=== PATIENT | male | born 1985 | race Caucasian/White ===

== ENCOUNTER 2017-10-26 12:54 | Emergency (ER) | payer MEDICAID, SELFPAY ==
[2017-10-26 12:54] VITALS: BP 145/94; PULSE 99; RESP 16; TEMP 36.6; O2SAT 99; BMI 26.6
--- NOTE | 2017-10-26 13:03 | ED.VISSUMM ---
- ER Visit Summary Date of Service: 10/26/17 Chief Complaint: Acute right upper back tooth pain History of Present Illness: The patient is a 32 M [address] his [address] Barnett. He was instructed to come to the ER. He denies fever, chills night sweats. He had pain for 1 week. He does complain of sensitivity to cold. He denies difficulty opening or closing his mouth. He denies any facial swelling or redness. He denies a traumatic fever, murmur, SBE, IV drug use to be an immune suppressed. Physical Examination: Pleasant 32-year-old male who appears in no obvious distress. There is no facial erythema, swelling noted. There is no TMJ tenderness and no evidence of malocclusion. Patient has a significant cavity to the pulp right upper back molar. There is evidence of periodontal disease. Trachea is midline. There is no stridor. Insert cardiopulmonary exam Test Results: None Emergency Department Course and Treatment: He received his first dose of clindamycin and [place] in the department and given prescription for both. Treatment Plan: Schedule appointment with Dr. Barnett next week Disposition: Discharge to home with outpatient dental follow-up Impression: 1. Odontalgia 2. Dental carry involving the pulp 3. Periapical abscess This note was generated with [employer] dictation software. It may contain incorrect words, spelling, and punctuation that were not noted in review of the chart prior to signing ED Disposition - Plan for ED Patient: Disposition: Home or Assisted Living Chief Complaint: Dental Instructions: Dental Abscess Prescriptions: Hydrocodone Bitart/Apap 5-325 [[place] 5MG-325MG] 1 tab PO Q4H PRN PRN #10 tab PRN Reason: Pain Clindamycin HCl 300 mg PO 4X/DAY #30 cap Referrals: Care Physician,No Primary [Primary Care Provider] - Additional Instructions: Keep scheduled appointment for next week with your dentist, Dr. Barnett
--- NOTE | 2017-10-26 13:09 | ED.DCSUM_ITS ---
- ER Visit Summary Date of Service: 10/26/17 Chief Complaint: Acute right upper back tooth pain History of Present Illness: The patient is a 32 M contacted his dentist Dr[address] Barnett. He was instructed to come to the ER. He denies fever, chills night sweats. He had pain for 1 week. He does complain of sensitivity to cold. He denies difficulty opening or closing his mouth. He denies any facial swelling or redness. He denies a traumatic fever, murmur, SBE, IV drug use to be an immune suppressed. Physical Examination: Pleasant 32-year-old male who appears in no obvious distress. There is no facial erythema, swelling noted. There is no TMJ tenderness and no evidence of malocclusion. Patient has a significant cavity to the pulp right upper back molar. There is evidence of periodontal disease. Trachea is midline. There is no stridor. Insert cardiopulmonary exam Test Results: None Emergency Department Course and Treatment: He received his first dose of clindamycin and [place] in the department and given prescription for both. Treatment Plan: Schedule appointment with Dr. Barnett next week Disposition: Discharge to home with outpatient dental follow-up Impression: 1. Odontalgia 2. Dental carry involving the pulp 3. Periapical abscess This note was generated with [employer] dictation software. It may contain incorrect words, spelling, and punctuation that were not noted in review of the chart prior to signing ED Disposition - Plan for ED Patient: Disposition: Home or Assisted Living Chief Complaint: Dental Instructions: Dental Abscess Prescriptions: Hydrocodone Bitart/Apap 5-325 [[place] 5MG-325MG] 1 tab PO Q4H PRN PRN #10 tab PRN Reason: Pain Clindamycin HCl 300 mg PO 4X/DAY #30 cap Referrals: Care Physician,No Primary [Primary Care Provider] - Additional Instructions: Keep scheduled appointment for next week with your dentist, Dr. Barnett
[2017-10-26] MEDS: HYDROcodone Bitartrate/Apap 5/325 Tablet PO (13:18)
[2017-10-26] MEDS: Clindamycin HCl 150 MG Capsule 300 MG PO (13:18)
== END 2017-10-26 13:20 | disposition home or self-care (01) ==
PROVIDERS: Emergency Provider Emergency Medicine
DX: K02.9 Dental caries, unspecified (principal); K04.7 Periapical abscess without sinus; K08.89 Other specified disorders of teeth and supporting structures; Z72.0 Tobacco use
CPT/HCPCS: 99283

== ENCOUNTER → 2017-11-02 16:25 | Outpatient (CLI) | payer MEDICAID, SELFPAY ==
--- NOTE | 2017-11-02 16:27 | RAD_ITS ---
STUDY: X-RAY - LEFT KNEE REASON FOR EXAM: Male, 32 years old. Chronic pain TECHNIQUE: 4 view(s) of the knee. COMPARISON: None. FINDINGS: Normal visualized distal femur. Normal visualized proximal tibia and fibula. Normal proximal tibiofibular articulation. Normal medial femorotibial compartment. Normal lateral femorotibial compartment. Normal patellofemoral articulation. The soft tissue structures are unremarkable. RAD/Knee 4 or More Views IMPRESSION: Normal x-ray examination of the knee. Electronically Signed: Jeronimo Jain MD, FACR at 8:02 EST , Service support ,
--- NOTE | 2017-11-02 16:28 | RAD_ITS ---
STUDY: X-RAY - RIGHT KNEE REASON FOR EXAM: Male, 32 years old. Chronic pain TECHNIQUE: 4 view(s) of the knee. COMPARISON: None. FINDINGS: Normal visualized distal femur. Normal visualized proximal tibia and fibula. Normal proximal tibiofibular articulation. Normal medial femorotibial compartment. Normal lateral femorotibial compartment. Normal patellofemoral articulation. The soft tissue structures are unremarkable. RAD/Knee 4 or More Views IMPRESSION: Normal x-ray examination of the knee. Electronically Signed: Jeronimo Jain MD, FACR at 8:03 EST , Service support ,
== END ==
PROVIDERS: Visit Provider Anesthesiology Pain Medicine
DX: M25.562 Pain in left knee (principal); M25.561 Pain in right knee
CPT/HCPCS: 73564

== ENCOUNTER 2017-11-20 19:46 | Emergency (ER) | payer MEDICAID, SELFPAY ==
[2017-11-20 19:47] VITALS: BP 131/92; PULSE 111; RESP 20; TEMP 36.9; BMI 29.0
[2017-11-20 19:54] VITALS: TEMP 36.9
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
[2017-11-20] MEDS: oxyCODONE 5 MG Tablet PO (20:00)
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
[2017-11-20 22:45] VITALS: BP 138/76; PULSE 96; RESP 18; O2SAT 99
== END 2017-11-20 22:46 | disposition home or self-care (01) ==
PROVIDERS: Emergency Provider Emergency Medicine
DX: S80.02XA Contusion of left knee, initial encounter (principal); S40.012A Contusion of left shoulder, initial encounter; S39.012A Strain of muscle, fascia and tendon of lower back, initial encounter; S00.81XA Abrasion of other part of head, initial encounter; Z72.0 Tobacco use; V09.9XXA Pedestrian injured in unspecified transport accident, initial encounter; Y93.01 Activity, walking, marching and hiking; Y92.410 Unspecified street and highway as the place of occurrence of the external cause; Y99.8 Other external cause status
CPT/HCPCS: 72070; 72100; 73564; 99284; A4216

== ENCOUNTER 2017-11-28 21:43 | Emergency (ER) | payer MEDICAID, SELFPAY ==
[2017-11-28 21:44] VITALS: BP 141/95; PULSE 115; RESP 15; TEMP 36.9; BMI 28.8
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
[2017-11-28 22:31] LABS: Absolute Lymphocyte Count 2.46 X10^3/ul (0.83-4.51); Absolute Neutrophil Count 7.8 X10^3/uL (2.0-7.7); Basophil# 0.05 X10^3/uL; Basophil% 0.4 % (0-1); Eosinophil# 0.09 X10^3/uL; Eosinophils% 0.8 % (0-5); Hematocrit 43.4 % (40-54); Hemoglobin 14.9 g/dl (13.0-16.5); Lymphocyte # 2.46 X10^3/ul (4.0); Lymphocyte % 21.8 % (19-41); Mean Corp Hgb Conc 34.3 g/gl (32-36); Mean Corpuscular Hgb 28.9 pg (27.0-32.0); Mean Corpuscular Volume 84.3 fL (80-94); Mean Platelet Vol. 9.6 fl (6.2-12.0); Monocyte# 0.84 X10^3/uL; Monocyte% 7.4 % (0-10); Neutrophil # 7.82 X10^3/uL (2.7-7.7); Neutrophil % 69.2 % (47-70); Platelet Count 355 K/mm3 (150-450); RBC Distribution Width CV 14.7 % (11.6-14.6); RBC Distribution Width SD 44.4 fl (35.1-43.9); Red Blood Count 5.15 M/mm3 (4.6-6.2); White Blood Count 11.3 K/mm3 (4.4-11.0)
[2017-11-28 22:33] LABS: POSITIVE COUNT NO; POSITIVE DIFFERENTIAL NO; POSITIVE MORPHOLOGY NO
[2017-11-28 22:46] LABS: ALB/GLOB Ratio 1.1 RATIO (0.9-2.4); AST(SGOT) 26 U/L (15-37); Alanine Aminotransfer ALT/SGPT 29 U/L (16-61); Albumin, Serum 4.1 g/dL (3.2-5.0); Alkaline Phosphatase 85 U/L (45-117); Anion Gap 10 (5-15); BUN 25 mg/dL (7-18); BUN/Creat Ratio 24.3 RATIO (10-20); Calcium,Total 8.8 mg/dL (8.5-10.1); Chloride 107 mmol/L (98-107); Creatinine, Serum 1.03 mg/dL (0.70-1.30); EST Glomerular Filtration Rate 88 mL/min (>60); Est Glom Filt Rate - Afr Amer 107 mL/min (>60); Estimated Creatinine Clearance 102.01 ml/min; Globulin 3.8 g/dL (2.2-4.2); Glucose 94 mg/dL (74-106); Potassium 3.7 mmol/L (3.5-5.1); Protein, Total 7.9 g/dL (6.4-8.2); Sodium Level 141 mmol/L (136-145)
[2017-11-29 00:20] VITALS: BP 151/92; PULSE 102; RESP 15; O2SAT 98
--- NOTE | 2017-11-29 00:21 | ED.RN ---
PT GIVEN WRITTEN AND VERBAL DISCHARGE INSTRUCTIONS. PT VERBALIZES UNDERSTANDING AND DENIES ANY FURTHER QUESTIONS. PT IV D/C AND COVERED WITH 2X2 GAUZE DRESSING. MINIMAL BLEEDING NOTED. PT AMBULATORY HOME BY SELF. PT GIVEN WATER AND CRACKERS PRIOR TO DISCHARGE.
== END 2017-11-29 00:24 | disposition home or self-care (01) ==
PROVIDERS: Emergency Provider Emergency Medicine
DX: K62.5 Hemorrhage of anus and rectum (principal); R19.7 Diarrhea, unspecified; D72.829 Elevated white blood cell count, unspecified; R79.89 Other specified abnormal findings of blood chemistry; Z72.0 Tobacco use; Z79.1 Long term (current) use of non-steroidal anti-inflammatories (NSAID)
CPT/HCPCS: 80053; 85025; 99283; A4216

== ENCOUNTER 2017-12-02 16:05 | Emergency (ER) | payer MEDICAID, SELFPAY ==
[2017-12-02 16:06] VITALS: BP 134/95; PULSE 107; RESP 16; TEMP 36.8; O2SAT 97; BMI 29.5
[2017-12-02 17:42] VITALS: BP 129/76; PULSE 99; RESP 16; O2SAT 98
[2017-12-02 21:43] VITALS: BP 121/90; PULSE 102; RESP 16; O2SAT 100
[2017-12-02 21:51] LABS: Absolute Lymphocyte Count 2.58 X10^3/ul (0.83-4.51); Basophil# 0.05 X10^3/uL; Basophil% 0.4 % (0-1); Eosinophil# 0.17 X10^3/uL; Eosinophils% 1.3 % (0-5); Hematocrit 42.5 % (40-54); Hemoglobin 14.2 g/dl (13.0-16.5); Lymphocyte # 2.58 X10^3/ul (4.0); Lymphocyte % 20.4 % (19-41); Mean Corp Hgb Conc 33.4 g/gl (32-36); Mean Corpuscular Volume 86.9 fL (80-94); Mean Platelet Vol. 9.7 fl (6.2-12.0); Monocyte# 0.83 X10^3/uL; Monocyte% 6.6 % (0-10); Neutrophil # 8.98 X10^3/uL (2.7-7.7); Neutrophil % 71.1 % (47-70); Platelet Count 332 K/mm3 (150-450); RBC Distribution Width CV 14.5 % (11.6-14.6); RBC Distribution Width SD 46.1 fl (35.1-43.9); Red Blood Count 4.89 M/mm3 (4.6-6.2); White Blood Count 12.6 K/mm3 (4.4-11.0)
[2017-12-02 21:52] LABS: POSITIVE COUNT NO; POSITIVE DIFFERENTIAL NO; POSITIVE MORPHOLOGY NO
[2017-12-02 22:03] LABS: Anion Gap 10 (5-15); BUN 10 mg/dL (7-18); BUN/Creat Ratio 10.9 RATIO (10-20); Calcium,Total 8.9 mg/dL (8.5-10.1); Chloride 103 mmol/L (98-107); Creatinine, Serum 0.92 mg/dL (0.70-1.30); EST Glomerular Filtration Rate 101 mL/min (>60); Est Glom Filt Rate - Afr Amer 122 mL/min (>60); Glucose 93 mg/dL (74-106); Potassium 3.5 mmol/L (3.5-5.1); Sodium Level 138 mmol/L (136-145)
[2017-12-02 22:11] LABS: Amphetamine Urine VISTA POSITIVE (<1000 ng/mL); Barbiturate Urine VISTA NEGATIVE (< 200 ng/mL); Benzodiazepine Urine VISTA NEGATIVE (< 200 ng/mL); Cocaine Urine VISTA NEGATIVE (< 300 ng/mL); Ecstacy Urine VISTA NEGATIVE (< 500 ng/mL); Methadone Urine VISTA NEGATIVE (< 300 ng/mL); PCP Urine VISTA NEGATIVE (< 25 ng/mL); THC Urine VISTA POSITIVE (< 50 ng/mL); Vista UDS pH Range 6
--- NOTE | 2017-12-02 23:46 | ED.RN ---
PT PO 85% ON RA. MD NOTIFIED. WILL OBSERVE PT LONGER
--- NOTE | 2017-12-03 00:24 | ED.RN ---
SHERWIN FROM CRISIS CALLED IN STATING SHE WAS ALMOST DONE AT [facility] AND THEN SHE WILL BE UP TO SEE ROBERT.
--- NOTE | 2017-12-03 00:39 | ED.VISSUMM ---
- ER Visit Summary Date of Service: 12/03/17 Chief Complaint: Paranoid ideation History of Present Illness: The patient is a 32 M who presents with paranoid ideation that has been getting worse over the past couple weeks. Patient states that he feels like he is being followed by someone. Patient states he does not see anyone following him. He just feels as though someone is following him. Patient denies any visual or auditory hallucinations. Patient states he has been noncompliant with his medications over the past couple months. Patient states he is supposed to be taking Celexa and another medication. Patient states he did smoke marijuana recently. Patient states the marijuana was laced with methamphetamine. Patient denies any suicidal ideations. Patient denies any homicidal ideations. Patient states he sees Dr. Celis at the counseling center for his history of paranoia. Physical Examination: Vital signs are stable except for mild tachycardia of 107. Patient is afebrile. Patient is in no acute distress. Patient is having some flight of ideas and paranoid ideation. Patient denies any suicidal or homicidal ideations. The patient is awake, alert, and oriented ?3. Patient is in no acute distress. Heart was regular rate and rhythm. Lungs are clear and equal bilaterally. Abdomen is soft nontender. Oral mucosa is pink and moist. Neck is supple. There is full range of motion. The remaining physical exam is within normal limits. Test Results: CBC showed a mild leukocytosis of 12.6. Serum alcohol level was normal. Basic metabolic profile was within normal limits. Urine tox screen was positive for cannabinoids and amphetamines. Emergency Department Course and Treatment: The crisis center knows the patient and states that the patient has an appointment tomorrow. They will be in to evaluate the patient for his paranoid ideations. Treatment Plan: Crisis center will be in to evaluate the patient. Care of the patient was turned over to Dr. Mejía pending crisis evaluation. Disposition: Patient will be likely be discharged and follow-up with his appointment tomorrow. Impression: Paranoid ideations This note was generated with [employer] dictation software. It may contain incorrect words, spelling, and punctuation that were not noted in review of the chart prior to signing ED Disposition - Plan for ED Patient: Chief Complaint: Mental Health Diagnosis: Paranoid ideation Instructions: ED Paranoid Schizophrenia Referrals: Care Physician,No Primary [Primary Care Provider] -
[2017-12-03 01:01] VITALS: RESP 17
--- NOTE | 2017-12-03 02:42 | ED.DEP ---
ED Disposition - Plan for ED Patient: Chief Complaint: Mental Health Diagnosis: Paranoid ideation Instructions: ED Paranoid Schizophrenia Referrals: Counseling,Center [GROUP OF PHYSICIANS] - [facility] appointment
[2017-12-03 03:02] VITALS: BP 127/90; PULSE 81; RESP 18; O2SAT 98
== END 2017-12-03 03:23 | disposition home or self-care (01) ==
LOC: ED 21:49
PROVIDERS: Emergency Provider Emergency Medicine
DX: F60.0 Paranoid personality disorder (principal); Z91.19 Patient's noncompliance with other medical treatment and regimen; Z72.0 Tobacco use
CPT/HCPCS: 80048; 80307; 80320; 85025; 99282; G0480

== ENCOUNTER 2017-12-12 14:29 | Emergency (ER) | payer MEDICAID, SELFPAY ==
[2017-12-12 14:31] VITALS: BP 138/86; PULSE 145; RESP 16; TEMP 37.2; O2SAT 99; BMI 26.6
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
[2017-12-12] MEDS: HYDROcodone Bitartrate/Apap 5/325 Tablet PO (15:04)
== END 2017-12-12 16:41 | disposition home or self-care (01) ==
PROVIDERS: Emergency Provider Emergency Medicine
DX: S06.0X9A Concussion with loss of consciousness of unspecified duration, initial encounter (principal); S01.81XA Laceration without foreign body of other part of head, initial encounter; Z72.0 Tobacco use; Y04.2XXA Assault by strike against or bumped into by another person, initial encounter; Y93.89 Activity, other specified; Y92.89 Other specified places as the place of occurrence of the external cause; Y99.8 Other external cause status
CPT/HCPCS: 12013; 70450; 70486; 99283

== ENCOUNTER 2018-01-02 17:18 | Emergency (ER) | payer MEDICAID, SELFPAY ==
[2018-01-02 17:20] VITALS: BP 151/83; PULSE 135; RESP 18; TEMP 36.6; O2SAT 96; BMI 29.4
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
[2018-01-02] MEDS: Triamcinolone Acetonide 40 MG/ML Vial IM (17:52)
== END 2018-01-02 17:57 | disposition home or self-care (01) ==
LOC: ED 17:47
PROVIDERS: Emergency Provider Emergency Medicine
DX: L29.9 Pruritus, unspecified (principal); S40.862A Insect bite (nonvenomous) of left upper arm, initial encounter; S40.861A Insect bite (nonvenomous) of right upper arm, initial encounter; S80.862A Insect bite (nonvenomous), left lower leg, initial encounter; S80.861A Insect bite (nonvenomous), right lower leg, initial encounter; Z72.0 Tobacco use; W57.XXXA Bitten or stung by nonvenomous insect and other nonvenomous arthropods, initial encounter; Y93.84 Activity, sleeping; Y92.009 Unspecified place in unspecified non-institutional (private) residence as the place of occurrence of the external cause; Y99.8 Other external cause status
CPT/HCPCS: 96372; 99282

== ENCOUNTER 2018-01-22 23:24 | Emergency (ER) | payer MEDICAID, SELFPAY ==
[2018-01-22 23:26] VITALS: BP 139/92; PULSE 114; RESP 18; TEMP 36.7; O2SAT 98; BMI 27.7
--- NOTE | 2018-01-22 23:48 | ED.RN ---
PT NAME CALLED IN TRIAGE TO TAKE PT TO ROOM. PT CURRENTLY IN RESTROOM.
--- NOTE | 2018-01-22 23:57 | ED.RN ---
PT PLACED IN ROOM. CHART PLACED IN DR. OFFICE. PT INFORMED OF AWAITING THE DR. PT LEAVES DEPT. THIS RN ASKED PT WHY HE WAS LEAVING. PT REPORTS, I NEED TO GO HOME AND DO A COUPLE THINGS AND I WILL COME BACK. PT AMBULATORY OUT BY SELF.
== END 2018-01-23 | disposition left against medical advice (07) ==
LOC: ED 01-23 00:15
PROVIDERS: Emergency Provider Emergency Medicine
DX: R20.0 Anesthesia of skin (principal)

== ENCOUNTER 2018-01-24 00:16 | Emergency (ER) | payer MEDICAID, SELFPAY ==
[2018-01-24 00:17] VITALS: BP 133/98; PULSE 108; RESP 15; TEMP 37; BMI 26.6
--- NOTE | 2018-01-24 00:53 | ED.DCSUM_ITS ---
- ER Visit Summary Date of Service: 01/24/18 Chief Complaint: Anxiety History of Present Illness: The patient is a 32 M who goes to the counseling center. He reports that he has a history of schizophrenia and anxiety. States that he is on Vistaril, Celexa, and trazodone. He reports that he has felt anxious since 6 PM yesterday. Is gradually been increasing. He reports it is made him short of breath. States that he took his last dose of Vistaril at approximately 8 PM and that was 50 mg. He has not taken his evening dose of trazodone. He denies any suicidal or homicidal ideations. No auditory or visual hallucinations. Review of systems: General: No fever, chills, cold sweats. Cardiovascular: No chest pain, palpitations. Respiratory: No cough. Gastrointestinal: No abdominal pain, nausea, vomiting, diarrhea, melena, or hematochezia. Genitourinary: No dysuria, frequency, hematuria. Skin: No rash. Neuro: No headache, numbness, weakness. Physical Examination: Vitals: Stable. Afebrile. General: Well-nourished and well-developed. Head: Normocephalic atraumatic. Neck: Supple, no lymphadenopathy. No JVD. Nontender. Cardiovascular: Regular rate and rhythm. No murmurs. Respiratory: No respiratory distress. Clear to auscultation bilaterally. Abdominal: Soft, nontender, nondistended, normal bowel sounds. No guarding, rebound, or peritoneal signs. Back: Nontender. Extremities: Nontender, no edema. Skin: Normal color, no rash. Neurologic: Alert and oriented ?3. Cranial nerves II through XII are intact. Normal strength and sensation. Mental status exam: Patient appears their stated age. Good posture and grooming. Good eye contact. Normal rate, volume, and latency of speech. No suicidal or homicidal ideation. No auditory or visual hallucinations. Flow of thought is logical. Insight and judgment is fair. Emergency Department Course and Treatment: Patient's visit history was reviewed. This is his eighth visit to the emergency department since October [id number]. In [facility] report was obtained and shows that he has had no prescriptions for benzodiazepines. He has had 7 prescriptions for opiates in the past year. I hope a prolonged discussion with the patient that I do not think being placed on benzodiazepines is indicated if his psychiatrist has not prescribed this for him previously. I also do not think that it is a good idea to begin giving him benzodiazepines in the emergency department as he will start coming more often for this alone. He was given a dose of Vistaril IM. Treatment Plan: Patient will be discharged with instructions to continue his prior medications and to follow-up the counseling center for further evaluation and treatment. I do think that the patient would benefit from a care plan. He certainly needs help from a mental health perspective and he is homeless. He will be turned in for a care plan for his own good. Disposition: To home in improved and stable condition. Impression: 1. Anxiety. This note was generated with [employer] dictation software. It may contain incorrect words, spelling, and punctuation that were not noted in review of the chart prior to signing ED Disposition - Plan for ED Patient: Chief Complaint: Anxiety Instructions: ED Stress React Referrals: Counseling,Center [GROUP OF PHYSICIANS] - As soon as possible
[2018-01-24] MEDS: hydrOXYzine 50 MG/ML Vial IM (01:01)
[2018-01-24 01:27] VITALS: BP 137/94; PULSE 103; RESP 15; O2SAT 97
--- NOTE | 2018-01-25 10:36 | CASEMGMT ---
Social Work Note Referral from Dr. Mejía for EDCP. Pt has had 10 visits to the ED since 09/30/17. Placed call to pt and left a vm requesting a return phone call. According to the chart pt is homeless, does not have a PCP, has a hx of mental health diagnoses and follows at [facility]. SW agrees that EDCP is appropriate, but would like to assess and assist pt with meeting basic needs as there is concern for follow through if those needs are not met as well. EDCP to be drafted and reviewed. Will attempt to contact pt again if phone call is not returned. Keyanna Apodaca, DRAFTER [employer]OGRAPH[employer], [employer] VAT WORKER
== END 2018-01-24 01:29 | disposition home or self-care (01) ==
LOC: ED 00:40
PROVIDERS: Emergency Provider Emergency Medicine
DX: F41.9 Anxiety disorder, unspecified (principal); F20.9 Schizophrenia, unspecified; Z79.899 Other long term (current) drug therapy; Z72.0 Tobacco use
CPT/HCPCS: 96372; 99282

== ENCOUNTER 2018-12-09 04:21 | Emergency (ER) | payer MEDICAID, SELFPAY ==
[2018-12-09 04:23] VITALS: BP 123/91; PULSE 100; RESP 18; TEMP 36.7; O2SAT 100; BMI 26.6
--- NOTE | 2018-12-09 04:43 | ED.VISSUMM ---
- ER Visit Summary Date of Service: 12/09/18 Chief Complaint: Dental pain History of Present Illness: The patient is a 33 M who presents with dental pain. This began yesterday. He states that he was eating combos and a bit into one his right upper tooth broke. He has had pain since that time with only little relief with ibuprofen. No other symptoms. Physical Examination: Afebrile vitals unremarkable Patient has focal decay and a dental fracture of the right third maxillary molar Neck supple No trismus Clear speech Heart regular rate and rhythm Lungs clear Test Results: Not indicated Emergency Department Course and Treatment: She presents after a dental fracture with dental pain. At this time I do not see evidence of infection or indication for antibiotics. He was given a list of dental clinics. He was given a prescription for short course of [place] for acute pain control Treatment Plan: [] Disposition: Discharge Impression: Odontalgia Dental fracture redness This note was generated with [employer] dictation software. It may contain incorrect words, spelling, and punctuation that were not noted in review of the chart prior to signing ED Disposition - Plan for ED Patient: Referrals: Care Physician,No Primary [Primary Care Provider] -
--- NOTE | 2018-12-09 04:45 | ED.DEP ---
ED Disposition - Plan for ED Patient: Instructions: ED Tooth Pain Prescriptions: Hydrocodone Bitart/Apap 5-325 [[place] 5MG-325MG] 1 tab PO Q6H PRN PRN 3 Days #10 tab PRN Reason: Pain Referrals: Care Physician,No Primary [Primary Care Provider] -
[2018-12-09 05:08] VITALS: BP 120/78; PULSE 87; RESP 16; O2SAT 96
== END 2018-12-09 05:09 | disposition home or self-care (01) ==
LOC: ED 04:47
PROVIDERS: Emergency Provider Emergency Medicine
DX: K08.89 Other specified disorders of teeth and supporting structures (principal); S02.5XXA Fracture of tooth (traumatic), initial encounter for closed fracture; Z72.0 Tobacco use; X58.XXXA Exposure to other specified factors, initial encounter; Y93.89 Activity, other specified; Y92.89 Other specified places as the place of occurrence of the external cause; Y99.8 Other external cause status
CPT/HCPCS: 99282

== ENCOUNTER 2018-12-17 03:10 | Emergency (ER) | payer MEDICAID, SELFPAY ==
[2018-12-17 03:11] VITALS: BP 159/99; PULSE 117; RESP 18; TEMP 36.6; O2SAT 100; BMI 26.6
--- NOTE | 2018-12-17 03:56 | ED.DCSUM_ITS ---
- ER Visit Summary Date of Service: 12/17/18 Chief Complaint: Dental pain History of Present Illness: The patient is a 33 M who presents with dental pain. It began a week ago. He states that he was eating a bit into something in his tooth broke. Since that time he is also developed some hot and cold sens itivity. He has an appointment with a dentist next week. He denies fevers nausea vomiting. No facial or jaw swelling. Physical Examination: Afebrile initial heart rate 117 vitals otherwise normal No facial or jaw swelling No focal dental abscess No lymphadenopathy Heart regular Lungs clear Test Results: Not indicated Emergency Department Course and Treatment: Given that patient has developed heat and cold sensitivity will cover with antibiotics. He was given a prescription for clindamycin as well as naproxen for pain control and was discharged home. Treatment Plan: [] Disposition: Discharge Impression: Dental pain This note was generated with [employer] dictation software. It may contain incorrect words, spelling, and punctuation that were not noted in review of the chart prior to signing ED Disposition - Plan for ED Patient: Referrals: Care Physician,No Primary [Primary Care Provider] -
--- NOTE | 2018-12-17 03:56 | ED.DEP ---
ED Disposition - Plan for ED Patient: Instructions: ED Tooth Pain Prescriptions: Clindamycin HCl [Cleocin] 300 mg PO Q8H #30 cap Naproxen [Naprosyn] 500 mg PO BID #20 tab Referrals: Care Physician,No Primary [Primary Care Provider] -
[2018-12-17 04:00] VITALS: BP 159/99; PULSE 117; RESP 18; O2SAT 100
== END 2018-12-17 04:00 | disposition home or self-care (01) ==
PROVIDERS: Emergency Provider Emergency Medicine
DX: K08.89 Other specified disorders of teeth and supporting structures (principal); Z72.0 Tobacco use
CPT/HCPCS: 99282

== ENCOUNTER 2018-12-18 03:22 | Emergency (ER) | payer MEDICAID, SELFPAY ==
[2018-12-17 03:11] VITALS: BMI 26.6
[2018-12-18 03:24] VITALS: BP 123/83; PULSE 102; RESP 16; TEMP 36.8; O2SAT 100; BMI 23.6
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
[2018-12-18 03:32] VITALS: O2SAT 99
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
[2018-12-18 04:59] VITALS: BP 131/69; PULSE 89; RESP 16; O2SAT 97
[2018-12-18] MEDS: Ibuprofen 600 MG Tablet PO (05:01)
== END 2018-12-18 05:02 | disposition home or self-care (01) ==
PROVIDERS: Emergency Provider Emergency Medicine
DX: S00.12XA Contusion of left eyelid and periocular area, initial encounter (principal); S00.83XA Contusion of other part of head, initial encounter; Z72.0 Tobacco use; Y04.2XXA Assault by strike against or bumped into by another person, initial encounter; Y93.89 Activity, other specified; Y92.009 Unspecified place in unspecified non-institutional (private) residence as the place of occurrence of the external cause; Y99.8 Other external cause status
CPT/HCPCS: 70450; 70486; 99285

== ENCOUNTER 2019-01-14 05:02 | Emergency (ER) | payer MEDICAID, SELFPAY ==
[2019-01-14 05:03] VITALS: BP 134/88; PULSE 122; RESP 16; RESP 18; TEMP 36.8; O2SAT 100; BMI 26.6
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
--- NOTE | 2019-01-14 05:42 | ED.DEP ---
ED Disposition - Plan for ED Patient: Instructions: ED Drug Abuse General, ED Panic Attack Referrals: Care Physician,No Primary [Primary Care Provider] -
[2019-01-14] MEDS: hydrOXYzine PAM 25 MG Capsule PO (05:51)
[2019-01-14 06:44] VITALS: RESP 18
== END 2019-01-14 06:48 | disposition home or self-care (01) ==
PROVIDERS: Emergency Provider Emergency Medicine
DX: F41.9 Anxiety disorder, unspecified (principal); F15.10 Other stimulant abuse, uncomplicated; Z72.0 Tobacco use
CPT/HCPCS: 99282

== ENCOUNTER 2019-01-26 02:52 | Emergency (ER) | payer MEDICAID, SELFPAY ==
[2019-01-26 02:53] VITALS: BP 123/84; PULSE 97; RESP 18; TEMP 36.6; O2SAT 100; BMI 25.2
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
[2019-01-26 06:02] VITALS: BP 116/84; RESP 16; O2SAT 97
== END 2019-01-26 06:02 | disposition home or self-care (01) ==
PROVIDERS: Emergency Provider Emergency Medicine
DX: F41.9 Anxiety disorder, unspecified (principal); Z91.14 Patient's other noncompliance with medication regimen; Z72.0 Tobacco use
CPT/HCPCS: 99282

== ENCOUNTER 2019-02-27 17:47 | Emergency (ER) | payer MEDICAID, SELFPAY ==
[2019-02-27 17:48] VITALS: BP 134/75; PULSE 122; RESP 18; TEMP 36.9; O2SAT 100; BMI 26.6
--- NOTE | 2019-02-27 18:58 | ED.DCSUM_ITS ---
- ER Visit Summary Date of Service: 02/27/19 Chief Complaint: Rash and sores History of Present Illness: The patient is a 33 M who presents with sores in the groin area that have been constant for the past 4 days. Patient describes the pain as sharp. Patient states the pain is better with rest. Patient denies any discharge or drainage. Patient denies any fevers or chills. Patient denies any hot tub exposure. Patient states he has been taking Tylenol and ibuprofen at home with no improvement of his pain. Physical Examination: Vital signs are stable except for mild tachycardia of 122. Patient is afebrile. Patient is in no acute distress. Skin is warm dry. There is erythema and mild warmth of the inguinal areas bilaterally. There are some small pustules noted. There is no fluctuance. There is no induration. There is no evidence of any abscess. Abdomen is soft and nontender. Bowel sounds are normal. Heart was regular rate and rhythm. Lungs are clear and equal bilaterally. Cranial nerves II through XII are intact. There are no focal motor or sensory deficits noted. Emergency Department Course and Treatment: Patient was advised that this is folliculitis. Patient was given a prescription for clindamycin. Patient was instructed to follow-up with a primary care physician in 5 to 7 days. Patient understood and was agreeable with the plan. All questions were answered. Disposition: Discharge home Impression: Folliculitis This note was generated with [employer] dictation software. It may contain incorrect words, spelling, and punctuation that were not noted in review of the chart prior to signing ED Disposition - Plan for ED Patient: Disposition: Home or Assisted Living Diagnosis: Folliculitis Instructions: ED Folliculitis Prescriptions: Clindamycin HCl [Cleocin] 300 mg PO Q6H #40 cap Referrals: Care Physician,No Primary [Primary Care Provider] -
[2019-02-27 19:06] VITALS: BP 129/83; PULSE 79; RESP 14; O2SAT 97
== END 2019-02-27 19:07 | disposition home or self-care (01) ==
PROVIDERS: Emergency Provider Emergency Medicine
DX: L73.9 Follicular disorder, unspecified (principal); F41.9 Anxiety disorder, unspecified; Z72.0 Tobacco use; Z79.899 Other long term (current) drug therapy
CPT/HCPCS: 99282

== ENCOUNTER 2019-04-08 20:38 | Emergency (ER) | payer MEDICAID, SELFPAY ==
[2019-04-08 20:39] VITALS: BP 120/84; PULSE 106; RESP 24; TEMP 36.4; O2SAT 97; BMI 23.1
[2019-04-08] MEDS: proMETHazine 25 MG/ML Syringe 12.5 MG IV (22:12)
[2019-04-08] MEDS: 0.9% Normal Saline 1,000 ML 1000 ML IV (22:12)
[2019-04-08 22:13] VITALS: BP 131/87; PULSE 93; RESP 14
[2019-04-08 22:22] LABS: Absolute Lymphocyte Count 1.58 X10^3/ul (0.83-4.51); Absolute Neutrophil Count 8.7 X10^3/uL (2.0-7.7); Basophil# 0.03 X10^3/uL; Basophil% 0.3 % (0-1); Eosinophil# 0.21 X10^3/uL; Eosinophils% 1.8 % (0-5); Hematocrit 46.3 % (40-54); Hemoglobin 15.8 g/dl (13.0-16.5); Lymphocyte # 1.58 X10^3/ul (4.0); Lymphocyte % 13.7 % (19-41); Mean Corp Hgb Conc 34.1 g/gl (32-36); Mean Corpuscular Hgb 28.3 pg (27.0-32.0); Mean Corpuscular Volume 82.8 fL (80-94); Mean Platelet Vol. 9.1 fl (6.2-12.0); Monocyte% 8.6 % (0-10); Neutrophil # 8.73 X10^3/uL (2.7-7.7); Neutrophil % 75.4 % (47-70); POSITIVE COUNT NO; POSITIVE DIFFERENTIAL NO; POSITIVE MORPHOLOGY NO; Platelet Count 371 K/mm3 (150-450); RBC Distribution Width CV 13.7 % (11.6-14.6); RBC Distribution Width SD 41.4 fl (35.1-43.9); Red Blood Count 5.59 M/mm3 (4.6-6.2); White Blood Count 11.6 K/mm3 (4.4-11.0)
[2019-04-08 22:54] LABS: ALB/GLOB Ratio 0.9 RATIO (0.9-2.4); AST(SGOT) 25 U/L (15-37); Alanine Aminotransfer ALT/SGPT 39 U/L (16-61); Alkaline Phosphatase 104 U/L (45-117); Anion Gap 5 (5-15); BUN 14 mg/dL (7-18); BUN/Creat Ratio 12.2 RATIO (10-20); Calcium,Total 9.3 mg/dL (8.5-10.1); Chloride 99 mmol/L (98-107); Creatinine, Serum 1.15 mg/dL (0.70-1.30); EST Glomerular Filtration Rate 77 mL/min (>60); Est Glom Filt Rate - Afr Amer 93 mL/min (>60); Estimated Creatinine Clearance 90.51 ml/min; Globulin 4.3 g/dL (2.2-4.2); Glucose 97 mg/dL (74-106); Potassium 3.6 mmol/L (3.5-5.1); Protein, Total 8.3 g/dL (6.4-8.2); Sodium Level 136 mmol/L (136-145)
--- NOTE | 2019-04-08 23:29 | ED.DCSUM_ITS ---
- ER Visit Summary Date of Service: 04/08/19 Chief Complaint: [Vomiting and diarrhea] History of Present Illness: The patient is a 33 M [the emergency department with vomiting diarrhea for last 3 or 4 days. Patient states that he feels just like he did when he was withdrawing from heroin. Patient states he has not used heroin over 2 years. Patient states that he does use methamphetamines and he last used yesterday. Patient is not sure if his meth is being laced with heroin. Patient denies any fevers. He denies any abdominal pain. Patient's throwing up on average about 5 times a day and is having 3-4 watery stools. He denies any blood in stool or black tarry stool.] Physical Examination: [HEENT-PERRLA, EOMI. Cranial nerves II through XII grossly intact. TMs clear. Mucous membranes moist. No adenopathy. Cardiovascular-regular rate and rhythm without murmur or ectopy Lungs-clear to auscultation, chest wall stable without crepitus or subcu emphysema Abdomen-normoactive bowel sounds, soft, nontender, no rebound or rigidity, no peritoneal signs. Extremities-intact ?4, normal range of motion, normal pulses, atraumatic] Test Results: [C with a ventricular count of 11.6, hemoglobin 15.8, hematocrit 46, platelets 371. Chemistries unremarkable. LFTs were normal. Alcohol was 12.] Toxicology screen was positive for amphetamines as well as MDMA and marijuana but negative for opiates. Emergency Department Course and Treatment: [Patient was given a liter normal saline fluid bolus x2. Patient was given Phenergan. Patient felt improved however he still had some nausea and was given a second dose of Phenergan 12.5 mg IV. Treatment Plan: [Follow-up with primary care physician insurance commissioner for no doc in 3 to 5 days. Patient advised to discontinue illicit drug use. Patient advised to discontinue marijuana use. Patient will be given a prescription for Phenergan. Advised to use Imodium as needed for diarrhea.] Disposition: [Discharged home stable condition.] Impression: [Gastroenteritis] This note was generated with [employer] dictation software. It may contain incorrect words, spelling, and punctuation that were not noted in review of the chart prior to signing ED Disposition - Plan for ED Patient: Referrals: Care Physician,No Primary [Primary Care Provider] -
[2019-04-08] MEDS: 0.9% Normal Saline 1,000 ML 999 ML IV (23:30)
[2019-04-08 23:49] LABS: Amphetamine Urine VISTA POSITIVE (<1000 ng/mL); Barbiturate Urine VISTA NEGATIVE (< 200 ng/mL); Benzodiazepine Urine VISTA NEGATIVE (< 200 ng/mL); Cocaine Urine VISTA NEGATIVE (< 300 ng/mL); Ecstacy Urine VISTA POSITIVE (< 500 ng/mL); Methadone Urine VISTA NEGATIVE (< 300 ng/mL); PCP Urine VISTA NEGATIVE (< 25 ng/mL); THC Urine VISTA POSITIVE (< 50 ng/mL); Vista UDS pH Range 6
--- NOTE | 2019-04-08 23:58 | ED.DEP ---
ED Disposition - Plan for ED Patient: Instructions: GASTROENTERITIS, Viral (5y-Adult) Prescriptions: Ondansetron [Zofran Odt] 4 mg PO Q8H PRN PRN #10 tab PRN Reason: Nausea Prescription Printed Referrals: Care Physician,No Primary [Primary Care Provider] - Faheem Shipman MD [STAFF PHYSICIAN] - 3-5 Days
[2019-04-09] MEDS: proMETHazine 25 MG/ML Syringe 12.5 MG IV (00:10)
[2019-04-09 00:11] VITALS: BP 121/89; PULSE 92; RESP 16
== END 2019-04-09 00:11 | disposition home or self-care (01) ==
PROVIDERS: Emergency Provider Emergency Medicine
DX: K52.9 Noninfective gastroenteritis and colitis, unspecified (principal); Z72.0 Tobacco use
CPT/HCPCS: 80053; 80307; 80320; 85025; 96361; 96374; 96376; 99283; J7030; A4216; G0480

== ENCOUNTER 2019-06-03 10:14 | Emergency (ER) | payer MEDICAID, SELFPAY ==
[2019-06-03 10:15] VITALS: BP 140/90; PULSE 85; RESP 16; TEMP 36.6; O2SAT 98; BMI 26.6
--- NOTE | 2019-06-03 10:46 | ED.VISSUMM ---
- ER Visit Summary Date of Service: 06/03/19 Chief Complaint: Dental pain History of Present Illness: The patient is a 33 M who presents with right upper dental pain that began yesterday. Patient states he was eating a piece of his tooth broke off. Patient describes the pain as sharp and throbbing. Patient states the pain is worse over the right upper molar. Patient admits to cold sensitivity. Patient denies any fevers or chills. Patient denies any jaw swelling. Physical Examination: Vital signs are stable. Patient is afebrile. Patient is in no acute distress. Oral mucosa is pink and moist. Oropharynx is clear. Airway is patent. There is a large dental carry noted over the right upper third molar. There is mild gingival edema. There is no discharge or drainage. There is no fluctuance or evidence of any abscess. There is no sublingual edema or evidence of Abel's angina. Neck is supple. Trachea is midline. There is no JVD noted. There is some mild anterior cervical lymphadenopathy on the right. Heart was regular rate and rhythm. Lungs are clear and equal bilaterally. Cranial nerves II through XII are intact. There are no focal motor or sensory deficits noted. Emergency Department Course and Treatment: Since the patient is allergic to penicillin and sulfa, patient is given a prescription for clindamycin. Patient was instructed to follow-up with his dentist in 3 to 5 days. Patient understood and was agreeable with the plan. All questions were answered. Disposition: Discharge home Impression: Infected dental caries This note was generated with [employer] dictation software. It may contain incorrect words, spelling, and punctuation that were not noted in review of the chart prior to signing ED Disposition - Plan for ED Patient: Disposition: Home or Assisted Living Diagnosis: Infected dental caries Instructions: Dental Cavity Prescriptions: Clindamycin HCl [Cleocin] 300 mg PO Q6H #40 cap Prescription Printed Referrals: Care Physician,No Primary [Primary Care Provider] -
--- NOTE | 2019-06-03 10:54 | ED.DCSUM_ITS ---
- ER Visit Summary Date of Service: 06/03/19 Chief Complaint: [] History of Present Illness: The patient is a 33 M [] Physical Examination: [] Test Results: [] Emergency Department Course and Treatment: [] Treatment Plan: [] Disposition: [] Impression: [] This note was generated with [employer] software. It may contain incorrect words, spelling, and punctuation that were not noted in review of the chart prior to signing ED Disposition - Plan for ED Patient: Disposition: Home or Assisted Living Diagnosis: Infected dental caries Instructions: Dental Cavity Prescriptions: Clindamycin HCl [Cleocin] 300 mg PO Q6H #40 cap Prescription Printed Referrals: Care Physician,No Primary [Primary Care Provider] -
== END 2019-06-03 11:15 | disposition home or self-care (01) ==
PROVIDERS: Emergency Provider Emergency Medicine
DX: K02.9 Dental caries, unspecified (principal); K04.7 Periapical abscess without sinus; Z72.0 Tobacco use
CPT/HCPCS: 99282

== ENCOUNTER 2019-07-30 05:54 | Emergency (ER) | payer MEDICAID, SELFPAY ==
[2019-07-30 05:57] VITALS: BP 139/89; PULSE 93; RESP 20; TEMP 35.3; O2SAT 99; BMI 27.2
--- NOTE | 2019-07-30 06:04 | ED.DCSUM_ITS ---
- ER Visit Summary Date of Service: 07/30/19 Chief Complaint: Tooth pain History of Present Illness: The patient is a 34 M who states he has tooth pain. It started 1 hour ago. He has multiple teeth that are broken off. He denies fevers. No facial swelling. He took nothing for it at home. He does not have a dentist that he sees. He does smoke. Physical Examination: Vital signs reviewed. HEENT exam reveals widespread dental decay. The right mandibular teeth are all tender. There is no gingival abscess. Neck is supple without lymphadenopathy. Test Results: None performed Emergency Department Course and Treatment: Patient will be treated with naproxen and clindamycin. Same for home. He will be given dental clinic follow-up Treatment Plan: [] Disposition: Discharge Impression: Odontalgia This note was generated with [employer] dictation software. It may contain incorrect words, spelling, and punctuation that were not noted in review of the chart prior to signing ED Disposition - Plan for ED Patient: Referrals: Care Physician,No Primary [Primary Care Provider] -
--- NOTE | 2019-07-30 06:05 | ED.DEP ---
ED Disposition - Plan for ED Patient: Disposition: Home or Assisted Living Instructions: Dental Pain Prescriptions: Clindamycin [Cleocin] 300 mg PO TID #42 cap Prescription Printed Naproxen [Naprosyn] 500 mg PO BID PRN #20 tab Prescription Printed Referrals: Care Physician,No Primary [Primary Care Provider] -
[2019-07-30] MEDS: Naproxen 500 MG Tablet PO (06:09)
[2019-07-30] MEDS: Clindamycin HCl 150 MG Capsule 300 MG PO (06:10)
== END 2019-07-30 06:27 | disposition home or self-care (01) ==
LOC: ED 06:23
PROVIDERS: Emergency Provider Emergency Medicine
DX: K08.89 Other specified disorders of teeth and supporting structures (principal); Z72.0 Tobacco use
CPT/HCPCS: 99283

== ENCOUNTER 2019-09-04 04:05 | Emergency (ER) | payer MEDICAID, SELFPAY ==
[2019-09-04 04:06] VITALS: BP 146/99; PULSE 112; RESP 18; TEMP 36.4; O2SAT 99; BMI 26.6
--- NOTE | 2019-09-04 04:58 | RAD_ITS ---
STUDY: X-RAY CHEST REASON FOR EXAM: Male, 34 years old. Cough TECHNIQUE: Portable chest COMPARISON: None. FINDINGS: The lungs are clear and expanded. There is no demonstrated pleural abnormality. Normal size heart. Normal mediastinum and tg. Normal visualized pulmonary arteries. Normal visualized aortic arch and descending thoracic aorta. Normal visualized thoracic spine. Normal visualized ribs, clavicles, and shoulders. There is no demonstrated abnormality of the visualized soft tissue structures of the upper abdomen. RAD/Chest 1 View (Portable) IMPRESSION: Normal x-ray examination of the chest. Electronically Signed: Heath Gunderson, at 6:02 EST Tel , Service support ,
[2019-09-04 05:06] VITALS: PULSE 92; RESP 18; O2SAT 96
[2019-09-04] MEDS: Ipratropium/Albuterol Sulfate 3 ML AMPUL.NEB INHALATION (05:06)
--- NOTE | 2019-09-04 07:13 | ED.RN ---
Dr. Bender reports pt is not in room. All belongings are gone. PT was not seen leaving department by nursing staff. No IV was placed.
--- NOTE | 2019-09-04 08:27 | ED.VISSUMM ---
- ER Visit Summary Date of Service: 09/04/19 Chief Complaint: Cough History of Present Illness: The patient is a 34 M presenting with cough, URI symptoms for the past week. He states his friends have similar symptoms. He has had rhinorrhea, sore throat, cough. He denies fever. Denies chest pain or shortness of breath. Denies other complaints. Physical Examination: Vitals are stable. Patient is afebrile. Pulse ox 99% on room air. Alert no acute distress. HEENT exam moist mucous membranes, pharynx is normal. Neck is supple. No meningismus Lungs are mild expiratory wheezing bilaterally. Heart is regular and tachycardic Abdomen is soft nontender nondistended. Extremities are unremarkable. Skin is warm and dry. No rash No focal neurologic deficit. Remainder of exam is unremarkable. Emergency Department Course and Treatment: Patient was given DuoNeb aerosol. Chest x-ray shows no acute process. Patient eloped from the emergency department prior to receiving his results and discharge instructions. Disposition: Elopement Impression: URI This note was generated with [email or web address] dictation software. It may contain incorrect words, spelling, and punctuation that were not noted in review of the chart prior to signing ED Disposition - Plan for ED Patient: Disposition: Home or Assisted Living Referrals: Care Physician,No Primary [Primary Care Provider] -
== END 2019-09-04 07:14 | disposition home or self-care (01) ==
PROVIDERS: Emergency Provider Emergency Medicine
DX: J06.9 Acute upper respiratory infection, unspecified (principal); Z72.0 Tobacco use
CPT/HCPCS: 71045; 94640; 99251; 99282; G0463

== ENCOUNTER 2019-11-23 02:59 | Emergency (ER) | payer MEDICAID, SELFPAY ==
[2019-11-23 03:00] VITALS: BP 132/86; PULSE 100; RESP 18; TEMP 36.8; O2SAT 96; BMI 26.3
--- NOTE | 2019-11-23 03:26 | CT_ITS ---
STUDY: CTA OF THE ABDOMINAL AORTA AND BILATERAL LOWER EXTREMITIES REASON FOR EXAM: Male, 34 years old. RIGHT LEG ISCHEMIA, PAIN AND SWELLING TO RIGHT FOOT/ANKLE, CALF PAIN RADIATION DOSAGE (If Supplied By Facility): CTDIvol = ( 8.00 ) mGy, DLP = ( 1117.50 ) mGycm TECHNIQUE: Axial CT angiography multi-detector data acquisition was obtained from the lower lung rojas to the toes following intravenous administration of IV 100mL Isovue-370. Axial images and MIP images were reconstructed from the axial data set. Post-processing of the angiographic images was performed, with multiplanar reformation and 3D reconstruction. Individualized dose optimization techniques were used for this CT. TECHNICAL QUALITY: Good COMPARISON: CT scan abdomen and pelvis 02/26/2013. Descriptors of Narrowing: None (0%) Mild (< 50%) Moderate (50-70%) Severe (70-90%) Subtotal/Total Occlusion (90-100%) Non-Evaluable (technically non-diagnostic FINDINGS: Abdominal aorta: No demonstrated narrowing. No demonstrated aneurysm or dissection. Celiac and superior mesenteric arteries: No demonstrated narrowing. Inferior mesenteric artery: No demonstrated narrowing. Right renal artery(arteries): No demonstrated narrowing. Left renal artery(arteries): No demonstrated narrowing. Right common iliac artery: No demonstrated narrowing. Right external iliac artery: No demonstrated narrowing. Right internal iliac artery: No demonstrated narrowing. Left common iliac artery: No demonstrated narrowing. Left external iliac artery: No demonstrated narrowing. Left internal iliac artery: No demonstrated narrowing. RIGHT LOWER EXTREMITY Right common femoral artery: No demonstrated narrowing. Right profundus femoris: No demonstrated narrowing. Right superficial femoral: No demonstrated narrowing. Right popliteal artery: No demonstrated narrowing. Right tibioperoneal trunk: No demonstrated narrowing. As seen on series 3, axial images 284-344, there is decreased contrast enhancement of the right anterior tibial, posterior tibial, and peroneal arteries when compared with the left leg. However, on slightly delayed images of series 4, there is increased contrast enhancement of those vessels relative to those of the left leg. There is no demonstrated narrowing or occlusion of the right runoff vessels, and the etiology for slightly delayed enhancement is uncertain. Right anterior tibial artery: No demonstrated narrowing. Right posterior tibial artery: No demonstrated narrowing. Right peroneal artery: No demonstrated narrowing. LEFT LOWER EXTREMITY Left common femoral artery: No demonstrated narrowing. Left profundus femoris: No demonstrated narrowing. Left superficial femoral: No demonstrated narrowing. Left popliteal artery: No demonstrated narrowing. Left tibioperoneal trunk: No demonstrated narrowing. Left anterior tibial artery: No demonstrated narrowing. Left posterior tibial artery: No demonstrated narrowing. Left peroneal artery: No demonstrated narrowing. ABDOMINAL AND PELVIC FINDINGS: The visualized lung bases are unremarkable. The visualized portions of the heart are within normal limits. Normal liver. The gallbladder is contracted and it contains multiple gallstones. There is mild splenomegaly. Normal pancreas. Normal bilateral adrenal glands. Normal right kidney. Normal left kidney. Normal visualized stomach. Normal small intestine. Normal colon. The appendix is visualized on series 3, axial images 70-74 and it appears normal.. Normal abdominal aorta. Normal inferior vena cava. Normal retroperitoneum. Normal urinary bladder. Normal abdominal wall. Normal osseous structures. CT/CTA Abd w/Runoff W/WO Contrast IMPRESSION: Slightly delayed peak contrast enhancement of the right anterior tibial, posterior tibial, and peroneal arteries compared with those of the left leg. Normal contrast enhancement is seen in the right run off vessels on slightly delayed images and right runoff vessels are normal in caliber, with no evidence for stenosis or occlusion. Etiology for the slightly delayed right lower leg contrast enhancement is uncertain. Otherwise normal abdominal aorta and bilateral lower extremity run-off without a hemodynamically significant stenosis. Gallstones in a contracted gallbladder. Electronically Signed: Ravi Banegas MD at 5:01 EST , Service support ,
[2019-11-23 03:52] LABS: Absolute Lymphocyte Count 2.35 X10^3/uL (0.83-4.51); Absolute Neutrophil Count 4.5 X10^3/uL (2.0-7.7); Basophil# 0.06 X10^3/uL; Basophil% 0.7 % (0-1); Eosinophil# 0.44 X10^3/uL; Eosinophils% 5.5 % (0-5); Hematocrit 37.3 % (40-54); Hemoglobin 11.9 g/dL (13.0-16.5); Lymphocyte # 2.35 X10^3/ul (4.0); Lymphocyte % 29.2 % (19-41); Mean Corp Hgb Conc 31.9 g/dL (32-36); Mean Corpuscular Hgb 27.2 pg (27.0-32.0); Mean Corpuscular Volume 85.2 fL (80-94); Mean Platelet Vol. 9.3 fl (6.2-12.0); Monocyte# 0.65 X10^3/uL; Monocyte% 8.1 % (0-10); NRBC Flagged by Analyzer 0 % (0-5); Neutrophil # 4.52 X10^3/uL (2.7-7.7); Neutrophil % 56.1 % (47-70); Platelet Count 227 K/mm3 (150-450); RBC Distribution Width CV 13.8 % (11.6-14.6); RBC Distribution Width SD 43.2 fl (35.1-43.9); Red Blood Count 4.38 M/mm3 (4.6-6.2); White Blood Count 8.1 K/mm3 (4.4-11.0)
--- NOTE | 2019-11-23 03:56 | ED.VIS.GEN ---
History of Present Illness Chief Complaint: Lower Extremity Injury Narrative: Patient presenting due to complaints of right leg swelling. Patient is a IV drug abuser. Patient states that he uses heroin and methamphetamine and a injection type pattern, most recently 2 days ago. Patient states that 4 days ago he felt as if he was having some swelling in his left leg, and felt that this was associated with a wound that he had over the distal portion of that leg. Patient reports that he cleansed the wound with alcohol and dressed it and felt that swelling had decreased. Patient states however now he feels as if he has swelling in his right foot and right calf. He states that this is been going on over the course of about the last day, and is associated with feelings of cramping in his leg and calf when he tries to ambulate. Patient states that he was trying to come to the emergency department for this but every time he was trying to ambulate his legs will cramp up so bad that he could not get anywhere, so he called EMS to be brought in. He denies any chest pain shortness of breath or hemoptysis. He denies any fevers or unintended weight loss. Past Medical History - Allergies and Home Meds Allergies/Adverse Reactions: Allergies Penicillins [PCN] Allergy (Verified 06/03/19 10:15) Swelling Sulfa (Sulfonamide Antibiotics) Allergy (Verified 06/03/19 10:15) Swelling Primary Care Physician: Care Physician,No Primary [Primary Care Provider] - Past Medical History: - - Current history of IV drug abuse Smoking Status: Current every day smoker Review of Systems General: Denies: Fever, Malaise Eyes: Denies: Visual changes - bilaterally, Diplopia ENT: Denies: Rhinorrhea, Sore throat Cardiovascular: Denies: Chest pain Respiratory: Denies: Dyspnea Gastrointestinal: Denies: Abdominal pain, Nausea, Vomiting, Diarrhea, Melena, Hematochezia Genitourinary: Denies: Dysuria, Hematuria, Frequency Musculoskeletal: Reports: Swelling, Extremity Pain Skin: Denies: Rash, Wounds Neurological: Denies: Headache, Weakness, Numbness Psych: Denies: Depression Endocrine: Denies: Polyuria Hematologic: Denies: Easy bruising Allergy: Denies: Uticaria Physical Exam Vital Signs/Narrative: Vital Signs Temp Pulse Resp BP Pulse Ox 11/23/19 03:00 98.2 F 100 18 132/86 H 96 Inital Vital Signs reviewed: Yes General: Well nourished, Well developed, No Acute Distress Head: Normocephalic, Atraumatic Eyes: Perrl, EOMI ENT: Moist mucous membranes, No rhinorrhea Neck: Supple, Nontender Cardiovascular: Regular rate, Regular rhythm, No murmurs - No signs of abnormal heart sounds or murmur Respiratory: No distress, CTA bilaterally, Chest nontender Abdomen: Soft, Nontender, Nondistended, Normal bowel sounds. Negative for: Pulsatile mass Extremities: - - Examination of the patient's lower extremities shows an abrasion over the medial portion of the patient's left ankle that appears to be well-healing. 2+ DP pulses are noted. This is bilateral. 1+ PT pulses that are bilaterally symmetric. 2+ popliteal pulses bilaterally symmetric. Right foot is noted to be cool, to have delayed capillary refill, and to be pale when compared to the contralateral foot. Coolness goes up to just proximal to the ankle. Slightly decreased sensation of the ankle and foot with normal range of motion of the hip knee ankle foot and toes. No outward signs of edema. Skin: Normal color, - - Pallor is noted of the right foot Neurological: Alert, Oriented x3, Parasthesia - Right foot and ankle Psychological: Normal affect Diagnostic/Tx/Re-eval - Medical Decision Making Patient presented with symptomatology of claudication of the leg. Physical exam was concerning for the possibility of limb ischemia although conversely the patient seem to have pulses that are easily palpable in his feet and ankles bilaterally. He also had clearly palpable femoral and popliteal pulses, and I did ultrasound of his right lower extremity and he does not seem to have any evidence of extensive venous clot, and seems to have dopplerable pulses in both the PT and DP artery distribution. He very clearly had pallor and delayed capillary refill of the foot and ankle though. Work-up was obtained. CBC and chemistry unremarkable. Hepatitis panel was sent on the patient as he was concerned for exposure. CK was found to be modestly elevated at 350. CT angiogram of the abdomen pelvis and lower extremities with runoffs were performed. Per radiology this showed delayed filling of the patient's posterior tibial artery distribution on the right with delayed filling. Multiple repeat evaluations of the patient's continued to show a persistently cool right foot. I discussed this with general surgery, Dr Londono. He feels that this could be indicative of microvascular ischemia, and recommended that the patient be started on heparin and be transferred. I discussed the patient's case with vascular surgery at [facility] who did agree to accept patient in transfer. Patient be transferred for further work-up and treatment. - Critical Care Time Critical care time (excluding procedures): 30-74 minutes ED Disposition - Plan for ED Patient: Disposition: [facility] Diagnosis: Limb ischemia Referrals: Care Physician,No Primary [Primary Care Provider] -
[2019-11-23 03:57] LABS: International Normalized Ratio 1.1; Prothrombin Time (Protime)PT. 13.8 SECONDS (11.7-14.9)
[2019-11-23 03:58] LABS: Partial Thromboplast Time 34.8 Seconds (24.1-36.2)
[2019-11-23 04:01] LABS: ALB/GLOB Ratio 0.7 RATIO (0.9-2.4); AST(SGOT) 48 U/L (15-37); Alanine Aminotransfer ALT/SGPT 58 U/L (16-61); Albumin, Serum 3.1 g/dL (3.2-5.0); Alkaline Phosphatase 108 U/L (45-117); Anion Gap 3 (5-15); BUN 13 mg/dL (7-18); BUN/Creat Ratio 15.7 RATIO (10-20); Calcium,Total 8.3 mg/dL (8.5-10.1); Chloride 101 mmol/L (98-107); Creatinine, Serum 0.83 mg/dL (0.70-1.30); EST Glomerular Filtration Rate 112 mL/min (>60); Est Glom Filt Rate - Afr Amer 135 mL/min (>60); Estimated Creatinine Clearance 124.22 ml/min; Globulin 4.5 g/dL (2.2-4.2); Glucose 100 mg/dL (74-106); Potassium 4.2 mmol/L (3.5-5.1); Protein, Total 7.6 g/dL (6.4-8.2); Sodium Level 134 mmol/L (136-145)
[2019-11-23 04:07] VITALS: BP 130/75; BP 139/71; BP 146/83
[2019-11-23 04:08] VITALS: BP 129/83
[2019-11-23 04:27] LABS: CPK Total, Creatine Kinase 359 U/L (39-308)
[2019-11-23 06:00] VITALS: BP 133/83; O2SAT 97
[2019-11-23] MEDS: Heparin Injection (Vial) 5,000 UNIT/ML VIAL 4000 UNIT IV (06:16)
[2019-11-23] MEDS: HEPARIN/D5w 25,000 UNITS 25,000 UNITS/250 ML IV.SOLN. 10 UNITS IV (06:17)
--- NOTE | 2019-11-23 06:40 | NURSING ---
called [facility] for transport. eta is about 730
[2019-11-24 06:07] LABS: HEPATITIS B SURFACE AG 6510 Negative (Negative)
[2019-11-24 07:55] LABS: Hep B Surface Antibodies Reactive (.)
[2019-11-24 08:00] LABS: Hepatitis C Ab >11.0 s/co ratio (0.0-0.9)
== END 2019-11-23 07:36 | disposition short-term general hospital (02) ==
PROVIDERS: Emergency Provider Emergency Medicine
DX: I99.8 Other disorder of circulatory system (principal); F15.10 Other stimulant abuse, uncomplicated; F11.10 Opioid abuse, uncomplicated; F17.200 Nicotine dependence, unspecified, uncomplicated
CPT/HCPCS: 75635; 80053; 82550; 83605; 85025; 85610; 85730; 86706; 86803; 87340; 96365; 96366; 96375; 99285; Q9967; A4216

== ENCOUNTER 2019-11-27 14:47 | Emergency (ER) | payer MEDICAID, SELFPAY ==
[2019-11-27 14:48] VITALS: BP 124/79; PULSE 104; RESP 18; TEMP 36.6; O2SAT 99; BMI 26.6
--- NOTE | 2019-11-27 15:09 | ED.VISSUMM ---
- ER Visit Summary Date of Service: 11/27/19 Chief Complaint: Right foot pain History of Present Illness: The patient is a 34 M with no primary care physician. He reports he is in the emergency department 6 days ago for a cramping in his right calf. There was concerned that he had an ischemic leg and he was transferred to [facility]. He reports that they were unable to find a cause. He did not have any blood clots. He was not discharged on blood thinners. He did not have surgery. He reports that he is no longer having right calf pain. Patient reports that he has right foot pain that began yesterday. Says sharp pain 7-10 with walking and is pain-free at rest. States that this is over the distal portion of his left foot. He denies any known injury. However, he reports that he used fentanyl and blacked out approximately 1 week ago. He continues to use IV methamphetamine and heroin. Last methamphetamine use was this morning. Last heroin use was last night. He does not want help with this. Patient also reports he had a nonproductive cough in the past 2 days. He denies any fever, chills, chest pain, or shortness of breath. Physical Examination: Vitals: Stable. Afebrile. General: Well-nourished and well-developed. Head: Normocephalic atraumatic. Neck: Supple, no lymphadenopathy. No JVD. Nontender. Cardiovascular: Regular rate and rhythm. No murmurs. Respiratory: No respiratory distress. Clear to auscultation bilaterally. Abdominal: Soft, nontender, nondistended, normal bowel sounds. No guarding, rebound, or peritoneal signs. Back: Nontender. Extremities: Mild tenderness palpation over the first and fifth distal metatarsals on the plantar surface of his left foot. There is no pain over the top of his foot. He has a bounding 2+ dorsalis pedis pulse. There is no rash to suggest infection., no edema. Track rosales in the right antecubital fossa. No induration, fluctuance, or erythema to suggest infection. They are nontender. Skin: Normal color, no rash. Neurologic: Alert and oriented ?3. Cranial nerves II through XII are intact. Normal strength and sensation. Psych: Normal affect. Test Results: Clinical Impression(s) from Imaging Studies Chest X-Ray 11/27/19 15:15 IMPRESSION: Persistent lingular and lower lobe atelectasis and/or potentially scarring. No visualized focal consolidation. Electronically Signed: Milli Henriquez MD at 15:41 EST Tel , Service support , Foot X-Ray 11/27/19 15:15 IMPRESSION: Normal x-ray examination of the foot. Electronically Signed: Carlos Mcmullen DO at 15:54 EST Tel , Service support , Emergency Department Course and Treatment: Patient was treated with Tylenol. He is resting comfortably. Treatment Plan: Patient will be discharged with instructions to follow-up with the [facility] in 1 week if not improving. He is instructed to wear supportive shoes. Use Tylenol and/or ibuprofen for pain. Disposition: To home in improved and stable condition. Impression: 1. Right foot pain. 2. URI. 3. Intravenous heroin methamphetamine abuse. This note was generated with [employer] software. It may contain incorrect words, spelling, and punctuation that were not noted in review of the chart prior to signing ED Disposition - Plan for ED Patient: Instructions: Sprain Foot Referrals: [facility] [NON-STAFF] - 1 Week if not improving
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
--- NOTE | 2019-11-27 15:15 | RAD_ITS ---
STUDY: X-RAY CHEST REASON FOR EXAM: Male, 34 years old. COUGH FOR 1 WEEK TECHNIQUE: PA and lateral views of the chest. COMPARISON: September 04, 2019 chest x-ray FINDINGS: There is persistent linear density in the lower lobe and lingula. There is no demonstrated pleural abnormality. Normal size heart. Normal mediastinum and tg. Normal visualized pulmonary arteries. Normal visualized aortic arch and descending thoracic aorta. Normal visualized thoracic spine. Normal visualized ribs, clavicles, and shoulders. There is no demonstrated abnormality of the visualized soft tissue structures of the upper abdomen. RAD/Chest PA and Lateral IMPRESSION: Persistent lingular and lower lobe atelectasis and/or potentially scarring. No visualized focal consolidation. Electronically Signed: Milli Henriquez MD at 15:41 EST Tel , Service support ,
[2019-11-27] MEDS: Acetaminophen 500 MG Tablet 1000 MG PO (15:26)
== END 2019-11-27 16:27 | disposition home or self-care (01) ==
PROVIDERS: Emergency Provider Emergency Medicine
DX: M79.671 Pain in right foot (principal); J06.9 Acute upper respiratory infection, unspecified; F15.10 Other stimulant abuse, uncomplicated; F11.10 Opioid abuse, uncomplicated; Z72.0 Tobacco use
CPT/HCPCS: 71046; 73630; 99283

== ENCOUNTER 2019-12-02 05:44 | Emergency (ER) | payer MEDICAID, SELFPAY ==
[2019-12-02 05:45] VITALS: BP 143/83; PULSE 109; RESP 16; TEMP 36.7; O2SAT 100; BMI 25.7
--- NOTE | 2019-12-02 06:03 | ED.VIS.GEN ---
History of Present Illness Chief Complaint: Lower Extremity Injury Detail of Chief Complaint: Bilateral foot pain Informant: Patient Onset: Weeks Context: Gradual Onset Timing: Waxes and wanes Current Severity: Mild Maximum Severity: Moderate Narrative: Patient presents with bilateral foot pain. He states right foot hurts worse and he points to the ball of his foot. Patient has been seen here twice previously for the same. On the first visit his right foot was noted to be cool to the touch and pale when compared to the other foot. He did, however, have palpable pulses. CT scans were obtained and there was some concern for small microvascular ischemia. Patient was started on blood thinners and transferred to [facility]. Patient reports multiple work-ups were undertaken with no definitive cause. He was not discharged with blood thinners. Patient returned to the emergency room recently with complaint of right foot pain. Right foot x-ray was unremarkable. Patient denies injury since then. Patient reports taking ibuprofen a few hours ago. He has not yet followed up with anyone, stating he has short-term memory problems and did not know who to follow-up with. Past Medical History - Allergies and Home Meds Allergies/Adverse Reactions: Allergies Penicillins [PCN] Allergy (Verified 12/02/19 05:49) Swelling Sulfa (Sulfonamide Antibiotics) Allergy (Verified 12/02/19 05:49) Swelling Primary Care Physician: Care Physician,No Primary [Primary Care Provider] - Prior records reviewed: Yes Past Medical History: None Lives: Alone Smoking Status: Current every day smoker Drugs: Heroin, - - Meth Review of Systems General: Denies: Chills, Fever Eyes: Denies: Visual changes - bilaterally ENT: Denies: Bilateral ear pain Cardiovascular: Denies: Chest pain Respiratory: Denies: Dyspnea, Cough, Paroxysmal nocturnal dyspnea Gastrointestinal: Denies: Nausea, Vomiting, Diarrhea Musculoskeletal: Reports: Arthralgias, Swelling, Extremity Pain Skin: Denies: Rash Neurological: Denies: Headache Hematologic: Denies: Easy bruising, Easy bleeding Allergy: Denies: Uticaria Physical Exam Vital Signs/Narrative: Vital Signs Temp Pulse Resp BP Pulse Ox 12/02/19 05:45 98.1 F 109 H 16 143/83 H 100 Inital Vital Signs reviewed: Yes General: Well nourished, Well developed Head: Normocephalic ENT: Moist mucous membranes Neck: Supple Cardiovascular: Regular rate, Regular rhythm Respiratory: No distress, CTA bilaterally Abdomen: Soft, Nontender Extremities: - - Mild tenderness of the ball the right foot. No open wounds are noted. Patient does have edema noted to the bilateral ankles. He does not have significant edema to the feet themselves. He has strong pulses distally. There is no focal tenderness at the ankles or knees. Skin: - - Mild folliculitis noted to the lower legs. No sign of secondary bacterial infection. Neurological: Alert, Oriented x3, Normal Strength, Normal Sensation Psychological: Normal affect Diagnostic/Tx/Re-eval - Medical Decision Making Patient had significant recent work-up without definitive cause. Patient's feet will be cleansed. Chepe wraps will be applied to the feet and ankles to help with ankle edema. He will be given slipper socks. I encouraged the patient that he needs more supportive shoes with better socks. He apparently has been going from friend's house to friend's house sleeping on couches. He rides his bike around town a lot. I encouraged close follow-up. I will give him phone numbers for both podiatry as well as the free clinic. ED Disposition - Plan for ED Patient: Disposition: Home or Assisted Living Diagnosis: Edema, Arthralgia Instructions: ED Peripheral Edema, Bilateral Referrals: [facility] [NON-STAFF] - Paul Owens DPM [STAFF PHYSICIAN] -
[2019-12-02] MEDS: Acetaminophen 500 MG Tablet 1000 MG PO (06:12)
[2019-12-02 06:19] VITALS: BP 143/83; PULSE 109; RESP 16; O2SAT 100
== END 2019-12-02 06:24 | disposition home or self-care (01) ==
PROVIDERS: Emergency Provider Emergency Medicine
DX: M79.672 Pain in left foot (principal); M79.671 Pain in right foot; R60.0 Localized edema; F17.200 Nicotine dependence, unspecified, uncomplicated
CPT/HCPCS: 99282

== ENCOUNTER 2019-12-05 05:13 | Emergency (ER) | payer MEDICAID, SELFPAY ==
[2019-12-05 05:14] VITALS: BP 121/88; PULSE 94; RESP 18; TEMP 36.6; O2SAT 100; BMI 25.8
--- NOTE | 2019-12-05 05:28 | ED.DCSUM_ITS ---
- ER Visit Summary Date of Service: 12/05/19 Chief Complaint: Bilateral leg swelling History of Present Illness: The patient is a 34 M who presents with bilateral leg swelling that is been getting worse over the past 2 weeks. Patient has been seen here couple times for this. Patient states he is unable to rest and elevate his legs. Patient states he has not been using his compression wraps. Patient describes his pain as tightness and burning. Patient states his swelling is worse with prolonged standing. Patient admits to subjective chills. Patient states he noted some redness to his lower legs over the past day. Physical Examination: Vital signs are stable. Patient is afebrile. Patient is in no acute distress. Skin is warm dry. There is mild erythema and warmth over the lower legs bilaterally. There is no discharge or drainage. There is 1+ pitting edema of the lower extremities bilaterally. There is no calf tenderness. Heart was regular rate and rhythm. Lungs are clear and equal bilaterally. Abdomen is soft and nontender. Oral mucosa is pink and moist. Neck is supple. Trachea is midline. There is no JVD. Cranial nerves II through XII are intact. There are no focal motor or sensory deficits. Test Results: CBC and basic metabolic profile were obtained and were essentially within normal limits. PA and lateral chest x-ray was obtained. There is patchy left basilar airspace consolidation that could represent a pneumonia. These were interpreted by myself and the radiologist. Emergency Department Course and Treatment: Patient was advised of his findings. Patient was given a prescription for doxycycline. Patient was given his first dose here.. Patient was instructed to continue keeping his legs elevated. Patient was instructed to use his compression wraps. Patient was instructed to follow-up with his primary care physician at the [facility] in 3 to 5 days. Patient understood and was agreeable with the plan. All questions were answered. Disposition: Discharge home Impression: 1. Lower extremity edema 2. Cellulitis 3. Possible pneumonia This note was generated with [employer] dictation software. It may contain incorrect words, spelling, and punctuation that were not noted in review of the chart prior to signing ED Disposition - Plan for ED Patient: Disposition: Home or Assisted Living Diagnosis: Lower extremity edema, Cellulitis Instructions: ED Peripheral Edema, Bilateral Prescriptions: Doxycycline 100 mg PO BID #20 cap Prescription Printed Referrals: Care Physician,No Primary [Primary Care Provider] - [facility] [NON-STAFF] - 3-5 Days
--- NOTE | 2019-12-05 05:33 | RAD_ITS ---
STUDY: X-RAY CHEST REASON FOR EXAM: Male, 34 years old patient with cough, dyspnea and bilateral lower extremity edema. Has been here multiple times. TECHNIQUE: PA and lateral views of the chest. COMPARISON: November 27, 2019. FINDINGS: The lungs are expanded. There appears to be patchy left basilar airspace consolidation possibly representing pneumonia. Bronchovascular markings are prominent in both lungs. There is no demonstrated pleural abnormality. Normal size heart. Normal mediastinum and tg. There is prominence of the pulmonary hilar arteries with peripheral pulmonary vascular congestion. Normal visualized aortic arch and descending thoracic aorta. There is an increased kyphosis of the thoracic spine. Normal visualized ribs, clavicles, and shoulders. There is no demonstrated abnormality of the visualized soft tissue structures of the upper abdomen. RAD/Chest PA and Lateral IMPRESSION: Patchy left basilar airspace consolidation could represent a pneumonia. Electronically Signed: Maddie Montano MD at 6:33 EDT , Service support ,
[2019-12-05 05:49] LABS: Absolute Neutrophil Count 3.8 X10^3/uL (2.0-7.7); Basophil# 0.09 X10^3/uL; Basophil% 0.8 % (0-1); Eosinophil# 0.62 X10^3/uL; Eosinophils% 5.2 % (0-5); Hematocrit 36.1 % (40-54); Hemoglobin 11.7 g/dL (13.0-16.5); Lymphocyte % 55.7 % (19-41); Mean Corp Hgb Conc 32.4 g/dL (32-36); Mean Corpuscular Hgb 27.1 pg (27.0-32.0); Mean Corpuscular Volume 83.6 fL (80-94); Mean Platelet Vol. 9.4 fl (6.2-12.0); Monocyte# 0.71 X10^3/uL; NRBC Flagged by Analyzer 0 % (0-5); Neutrophil # 3.79 X10^3/uL (2.7-7.7); POSITIVE DIFFERENTIAL YES; POSITIVE MORPHOLOGY YES; Platelet Count 233 K/mm3 (150-450); RBC Distribution Width CV 14.4 % (11.6-14.6); RBC Distribution Width SD 43.8 fl (35.1-43.9); Red Blood Count 4.32 M/mm3 (4.6-6.2); White Blood Count 11.8 K/mm3 (4.4-11.0)
[2019-12-05 05:55] LABS: Anion Gap 6 (5-15); BUN 14 mg/dL (7-18); BUN/Creat Ratio 14.8 RATIO (10-20); Calcium,Total 8.1 mg/dL (8.5-10.1); Chloride 104 mmol/L (98-107); Creatinine, Serum 0.95 mg/dL (0.70-1.30); EST Glomerular Filtration Rate 96 mL/min (>60); Est Glom Filt Rate - Afr Amer 116 mL/min (>60); Estimated Creatinine Clearance 108.53 ml/min; Glucose 115 mg/dL (74-106); Potassium 3.5 mmol/L (3.5-5.1); Sodium Level 137 mmol/L (136-145)
[2019-12-05 05:59] LABS: Differential Indicated SCAN CRITERIA MET
[2019-12-05] MEDS: Doxycycline 100 MG CAPSULE PO (06:30)
[2019-12-05 06:34] VITALS: BP 116/80; PULSE 85; RESP 16; O2SAT 97
[2019-12-05 06:36] LABS: Differential Comment SCANNED
[2019-12-05 06:37] LABS: Platelet Estimate ADEQUATE (ADEQ); Reactive Lymphocyte RARE
== END 2019-12-05 06:35 | disposition home or self-care (01) ==
LOC: ED 06:09
PROVIDERS: Emergency Provider Emergency Medicine
DX: L03.116 Cellulitis of left lower limb (principal); L03.115 Cellulitis of right lower limb; R60.0 Localized edema; Z72.0 Tobacco use
CPT/HCPCS: 71046; 80048; 85025; 99283; A4216

== ENCOUNTER 2020-03-11 14:52 | Emergency (ER) | payer MEDICAID, SELFPAY ==
[2020-03-11 14:54] VITALS: BP 125/75; PULSE 90; RESP 18; TEMP 36.7; O2SAT 99; BMI 23.5
--- NOTE | 2020-03-11 15:04 | RAD_ITS ---
STUDY: X-RAY - RIGHT ELBOW REASON FOR EXAM: Male, 34 years old. Needle TECHNIQUE: 2 view(s) of the elbow. COMPARISON: None. FINDINGS: There is no evidence of fracture or dislocation. There are no significant degenerative changes. There is an 8 mm thin linear radiodense foreign body in the soft tissues which is best seen on the lateral view. RAD/Elbow 2 Views IMPRESSION: No fracture or dislocation. 8 mm thin linear radiodense foreign body in the soft tissues which is best seen on the lateral view. Electronically Signed: Julio Peace, at 16:34 EDT Tel , Service support ,
--- NOTE | 2020-03-11 15:05 | ED.DCSUM_ITS ---
History of Present Illness Informant: Patient Occurred: Weeks - 2 weeks Mechanism/Context: Puncture Wound Onset: Weeks - 2 weeks Context: Gradual Onset Timing: Continuous Quality of Pain: Throbbing Location: right elbow/forearm Current Severity: Moderate Maximum Severity: Moderate Worsened by: movement Relieved by: nothing Associated Symptoms: Negative for: Parasthesia, Loss of Funtion Narrative: 34-year-old male [id number] presents because he is concerned a needle stuck in his right forearm. He injects heroin and fentanyl and he injected 2 weeks ago and feels the needle stuck in his arm. He has had progressively worsening swelling. No numbness or tingling. No weakness. No bleeding. No fevers. No trauma Tetanus Immunization: Unknown Prior similar symptoms: No Recent Illness/Hospitalization: No <Yamil Min - Last Filed: 03/11/20 16:11> <Enzo Sellers - Last Filed: 03/11/20 21:44> Chief Complaint: Foreign Body Past Medical History Prior records reviewed: Yes Past Medical History: - - Polysubstance abuse Surgical History: no surgical history Lives: With Family Smoking Status: Current every day smoker Alcohol: Occasional Drugs: Heroin <Yamil Min - Last Filed: 03/11/20 16:11> <Enzo Sellers - Last Filed: 03/11/20 21:44> - Allergies and Home Meds Allergies/Adverse Reactions: Allergies Penicillins [PCN] Allergy (Verified 03/11/20 14:57) Swelling Sulfa (Sulfonamide Antibiotics) Allergy (Verified 03/11/20 14:57) Swelling Primary Care Physician: Nirav Glaser MD [STAFF PHYSICIAN] - Review of Systems All systems negative except as indicated General: Denies: Chills, Fever, Sweats Eyes: Denies: Visual changes - bilaterally, Diplopia ENT: Denies: Rhinorrhea, Sore throat Cardiovascular: Denies: Chest pain, Palpitations Respiratory: Denies: Dyspnea, Cough, Dyspnea on exertion Gastrointestinal: Denies: Abdominal pain, Nausea, Vomiting, Diarrhea, Melena, Hematochezia Genitourinary: Denies: Dysuria, Hematuria, Frequency Musculoskeletal: Reports: Swelling, Extremity Pain. Denies: Back pain Skin: Reports: Abscess. Denies: Rash, Abrasions, Wounds Neurological: Denies: Headache, Weakness, Numbness <Yamil Min - Last Filed: 03/11/20 16:11> Physical Exam Vital Signs/Narrative: Vital Signs Temp Pulse Resp BP Pulse Ox 03/11/20 14:54 98.0 F 90 18 125/75 H 99 Inital Vital Signs reviewed: Yes Right Forearm: - - Patient has swelling and induration with redness proximal right forearm wound the AC pain. No lymphatic streaking. No signs of compartment syndrome. Normal active range of motion. General: Well nourished, Well developed Head: Normocephalic, Atraumatic Eyes: Perrl, EOMI ENT: No Trauma, Moist Mucous Membranes Neck: Nontender, Full ROM Cardiovascular: Regular rate, Regular rhythm, No murmurs Respiratory: No distress, CTA bilaterally, Chest nontender Abdomen: Soft, Nontender, Nondistended, Normal bowel sounds Back: Nontender Skin: Normal color, No rash Neurological: Alert, Oriented x3, Cranial nerves II-XII grossly intact, Normal Strength, Normal Sensation Psychological: Normal affect <Yamil Min - Last Filed: 03/11/20 16:11> Diagnostic/Tx/Re-eval - Medical Decision Making I performed a history and physical examination of the patient and discussed management plan with the physician curatorial assistant. I reviewed the physician curatorial assistant's note and agree with the documented findings and plan of care. I abscess was opened. We are unable to locate the needle. I recommend that he start antibiotics and follow-up with surgery. Enzo Sellers DO, MS <Enzo Sellers - Last Filed: 03/11/20 21:44> ED Disposition <Yamil Min - Last Filed: 03/11/20 16:11> <Enzo Sellers - Last Filed: 03/11/20 21:44> - Plan for ED Patient: Disposition: Home or Assisted Living Diagnosis: Foreign body of upper arm with infection, Drug abuse, IV Instructions: ED Foreign Body Soft Tissue Prescriptions: Doxycycline 100 mg PO BID #20 cap Prescription Printed Referrals: Nirav Glaser MD [STAFF PHYSICIAN] -
[2020-03-11 16:18] VITALS: RESP 16
--- NOTE | 2020-05-02 16:23 | CM.ED ---
SOCIAL WORK Patient approved for ED Care Plan on 04/30/[address] Mejía. Copy of ED Care Plan and resources mailed to patient via certified mail. Tracking Number: [id number] [address] D. ROBERT Perez, [employer]
== END 2020-03-11 16:19 | disposition home or self-care (01) ==
PROVIDERS: Emergency Provider Physician Assistant Medical
DX: S41.141A Puncture wound with foreign body of right upper arm, initial encounter (principal); L02.413 Cutaneous abscess of right upper limb; F19.10 Other psychoactive substance abuse, uncomplicated; F17.200 Nicotine dependence, unspecified, uncomplicated; W46.0XXA Contact with hypodermic needle, initial encounter; Y93.89 Activity, other specified; Y92.89 Other specified places as the place of occurrence of the external cause; Y99.8 Other external cause status
CPT/HCPCS: 10060; 73070; 99283

== ENCOUNTER 2020-06-10 03:23 | Emergency (ER) | payer MEDICAID, SELFPAY ==
[2020-06-10 03:23] VITALS: BP 131/87; PULSE 98; RESP 16; TEMP 36.1; O2SAT 100; BMI 24.3
--- NOTE | 2020-06-10 04:02 | ED.DCSUM_ITS ---
- ER Visit Summary Date of Service: 06/10/20 Chief Complaint: Anxiety History of Present Illness: The patient is a 35 M who presents with anxiety that began yesterday. Patient states he found out that his best friend yesterday. Patient states that today he has been having some shortness of leslie ath. Patient states it is better when he keeps his mind active and occupied by doing things. Patient states it is worse when he is at rest. Patient denies any suicidal or homicidal ideations. Patient states he feels his heart racing at times. Patient also admits to some shortness of breath. Patient denies any nausea or vomiting. Physical Examination: Vital signs are stable. Patient is afebrile. Patient is in no acute distress. Oral mucosa is pink and moist. Neck is supple. Trachea is midline. There is no JVD noted. Heart was regular rate and rhythm. Lungs are clear and equal bilaterally. Abdomen is soft. Bowel sounds are normal. There is no tenderness. There is no rebound or guarding noted. Skin is warm dry. Cranial nerves II through XII are intact. There are no focal motor or sensory deficits noted. Extremities are intact. There is no calf tenderness or edema. Emergency Department Course and Treatment: Patient was given a dose of Vistaril here. Patient is feeling better on reevaluation. Patient states he is not currently taking his psychiatric medications because he has missed appointments with his psychiatrist. Patient states he has a history of short-term memory problems and frequently forgets his appointments. Patient states he has a women's basketball coach to help him with this but his women's basketball coach has not been taking him to his appointments as scheduled. Patient states he is attempting to get a new women's basketball coach. Patient was instructed to follow-up with his psychiatrist in 3 to 5 days. Patient was also instructed to follow-up with his primary care physician in 3 to 5 days. Patient understood and was agreeable with the plan. All questions were answered. Disposition: Discharge home Impression: Anxiety This note was generated with [employer] dictation software. It may contain incorrect words, spelling, and punctuation that were not noted in review of the chart prior to signing ED Disposition - Plan for ED Patient: Disposition: Home or Assisted Living Diagnosis: Anxiety Instructions: ED Stress React Referrals: Counseling,Center [GROUP OF PHYSICIANS] - 3-5 Days
[2020-06-10] MEDS: hydrOXYzine PAM 25 MG Capsule PO (04:19)
== END 2020-06-10 04:51 | disposition home or self-care (01) ==
PROVIDERS: Emergency Provider Emergency Medicine
DX: F41.9 Anxiety disorder, unspecified (principal); Z72.0 Tobacco use
CPT/HCPCS: 99283

== ENCOUNTER 2020-06-29 19:47 | Emergency (ER) | payer MEDICAID, SELFPAY ==
[2020-06-29 19:49] VITALS: BP 124/75; PULSE 99; RESP 18; TEMP 37.7; O2SAT 97; BMI 26.6
--- NOTE | 2020-06-29 20:00 | EKG12_ITS ---
Test Reason : DYSRHYTHMIA Blood Pressure : / mmHG Vent. Rate : 088 BPM Atrial Rate : 088 BPM P-R Int : 122 ms QRS Dur : 092 ms QT Int : 354 ms P-R-T Axes : 024 -09 011 degrees QTc Int : 428 ms Normal sinus rhythm Normal ECG Confirmed by HANK CHAU, JULISA ([id number]), editor in chief BENNY QUIROZ ([id number]) on 07/04/2020 9:53:19 AM Referred By: HAIR Confirmed By:JULISA MCKINNEY MD
--- NOTE | 2020-06-29 20:02 | ED.DCSUM_ITS ---
- ER Visit Summary Date of Service: 06/29/20 Chief Complaint: Cough, shortness of breath, fever and diarrhea History of Present Illness: The patient is a 35 M no seen past medical or surgical history. History of drug abuse including heroin, methamphetamine and marijuana. Patient states for last 2 to 3 days he has had a cough some mild shortness of breath. Fever as high as 101. Intermittent chest discomfort with coughing. No history of DVT or PE. No hemoptysis. No leg pain or swelling. No recent travel, surgery or immobilization. No family history of clotting disorder. Also states has had some mild diarrhea. No known exposure to COVID. Physical Examination: Young male vital signs stable currently afebrile temperature nine 9.9. Pulse ox 97% room air no signs hypoxia. He does not feel well he does not look like septic or toxic. He does not look severely dehydrate d. HEENT exam moist wheeze members. Normal posterior pharynx. Neck nontender. No lymphadenopathy. No meningismus. Able to touch chin to chest. Lungs clear to auscultation bilaterally. Heart regular rhythm rate about 95 no murmur. Abdomen soft nontender normal bowel sounds no peritoneal signs. Extremities moves all 4. Calves nontender without edema or cords. Back nontender. Skin unremarkable. Neurologically is awake and alert with no focal motor deficits. No rashes. Test Results: EKG normal sinus rhythm rate 88 no acute signs of [place] or ischemia. CBC shows a white count of 13.3. Hemoglobin 11 which is prior baseline. Electrolytes unremarkable sodium 133. Normal creatinine and gap. Chest x-ray shows a possible viral pneumonia pattern versus no acute abnormality. Read by the radiologist and myself. Portable 1 view. Repeat exam patient is doing better at 2150. He is feeling better. He wants to try to eat some. He and I went over all his test results. He understands his COVID test is a send out. Emergency Department Course and Treatment: Young male most likely viral URI rule out pneumonia. Rule out COVID. Treated with IV fluids, Toradol. Treatment Plan: Plenty of fluids and rest. Tylenol and Motrin for fever.. Follow-up with Dr. Francisco as needed. Return if feeling worse. Disposition: Discharge Impression: Acute viral syndrome Rule out COVID This note was generated with [employer] software. It may contain incorrect words, spelling, and punctuation that were not noted in review of the chart prior to signing ED Disposition - Plan for ED Patient: Referrals: Care Physician,No Primary [Primary Care Provider] -
[2020-06-29] MEDS: 0.9% Normal Saline 1,000 ML 1000 ML IV (20:13)
[2020-06-29] MEDS: Ketorolac 30 MG/ML Syringe IV (20:17)
[2020-06-29 20:28] LABS: Absolute Lymphocyte Count 3.27 X10^3/uL (0.83-4.51); Absolute Neutrophil Count 8.3 X10^3/uL (2.0-7.7); Basophil# 0.06 X10^3/uL; Basophil% 0.5 % (0-1); Eosinophil# 0.31 X10^3/uL; Eosinophils% 2.3 % (0-5); Hematocrit 33.8 % (40-54); Hemoglobin 11.1 g/dL (13.0-16.5); Lymphocyte # 3.27 X10^3/ul (4.0); Lymphocyte % 24.6 % (19-41); Mean Corp Hgb Conc 32.8 g/dL (32-36); Mean Corpuscular Hgb 27.8 pg (27.0-32.0); Mean Corpuscular Volume 84.5 fL (80-94); Mean Platelet Vol. 9.1 fl (6.2-12.0); Monocyte# 1.21 X10^3/uL; Monocyte% 9.1 % (0-10); NRBC Flagged by Analyzer 0 % (0-5); Neutrophil # 8.34 X10^3/uL (2.7-7.7); Neutrophil % 62.9 % (47-70); Platelet Count 331 K/mm3 (150-450); RBC Distribution Width CV 13.8 % (11.6-14.6); White Blood Count 13.3 K/mm3 (4.4-11.0)
--- NOTE | 2020-06-29 20:45 | RAD_ITS ---
STUDY: X-RAY CHEST REASON FOR EXAM: Male, 35 years old. Fever and cough TECHNIQUE: AP portable COMPARISON: 12/05/2019 FINDINGS: Prominence of the interstitial markings in both lower lobes with slightly increased density possibly representing atypical viral pneumonia.. There is no demonstrated pleural abnormality. Normal size heart. Normal mediastinum and tg. Normal visualized pulmonary arteries. Normal visualized aortic arch and descending thoracic aorta. Normal visualized thoracic spine. Normal visualized ribs, clavicles, and shoulders. There is no demonstrated abnormality of the visualized soft tissue structures of the upper abdomen. RAD/Chest 1 View (Portable) IMPRESSION: Findings which may be consistent with viral pneumonia. Clinical correlation recommended to exclude Covid 19 pneumonia. Electronically Signed: Paul Lazcano MD at 21:52 EDT , Service support ,
[2020-06-29 20:55] LABS: Anion Gap 5 (5-15); BUN 13 mg/dL (7-18); BUN/Creat Ratio 17.2 RATIO (10-20); Calcium,Total 8.8 mg/dL (8.5-10.1); Chloride 100 mmol/L (98-107); Creatinine, Serum 0.76 mg/dL (0.70-1.30); EST Glomerular Filtration Rate 124 mL/min (>60); Est Glom Filt Rate - Afr Amer 150 mL/min (>60); Estimated Creatinine Clearance 134.37 ml/min; Glucose 108 mg/dL (74-106); Potassium 3.6 mmol/L (3.5-5.1); Sodium Level 133 mmol/L (136-145)
--- NOTE | 2020-06-29 21:58 | ED.DEP ---
ED Disposition - Plan for ED Patient: Disposition: Home or Assisted Living Instructions: ED Viral Syndrome Referrals: Rojas Francisco MD [NON-STAFF] - 3-5 Days if not improving Additional Instructions: Plenty of fluids and rest. Tylenol and Motrin for fever. Your labs are basically unremarkable. Your chest x-ray may show signs of an early viral pneumonia. We are sending a COVID gonzales virus 19 test but that will be back for several days if positive you will be notified. Follow-up with local physician if not improving return emergency department if feeling a lot worse.
[2020-06-29 22:38] VITALS: RESP 22; O2SAT 98
--- NOTE | 2020-07-02 18:14 | ED.RN ---
ATTEMPTED TO CONTACT WITH COVID RESULTS. PHONE NUMBER INCORRECT
== END 2020-06-29 22:39 | disposition home or self-care (01) ==
PROVIDERS: Emergency Provider Emergency Medicine
DX: U07.1 COVID-19 (principal); Z72.0 Tobacco use
CPT/HCPCS: 71045; 80048; 85025; 87635; 93005; 96361; 96374; 99285; J7030; U0003

== ENCOUNTER 2020-07-13 16:52 | Inpatient (IN) | payer MEDICAID, SELFPAY ==
[2020-07-13 16:52] VITALS: BP 118/75; PULSE 116; RESP 15; TEMP 36.3; O2SAT 98; BMI 26.6
[2020-07-13 17:45] LABS: Color, Urine Yellow (Yellow); Glucose, Dipstick Normal (Normal); Ketone-Dipstick 5 mg/dl (Negative); Leukocyte Esterase-Dipstick 25 /ul (Negative); Nitrite-Dipstick Negative (Negative); Occult Blood-Urine 10 /ul (Negative); Protein-Dipstick 30 mg/dl (Negative); Urine Clarity Sl. Cloudy (Clear); Urine Urobilinogen 8 mg/dl (Normal)
[2020-07-13 17:55] LABS: Urine Bilirubin Dipstick 1 mg/dL (Negative)
[2020-07-13 18:00] LABS: Bacteria 1+ /hpf (None Seen); Hyaline Cast 0-5 SEEN /lpf (0-5); Mucous, Urine 1+ /hpf (<or=2+); Red Blood Cells-Urine 0-5 SEEN /hpf (0-5); Squamous Epithelial Cells - UA 0-5 SEEN /hpf (0-5); White Blood Cells 0-5 SEEN /hpf (0-5)
[2020-07-13 18:02] LABS: Amphetamine Urine VISTA POSITIVE (<1000 ng/mL); Barbiturate Urine VISTA NEGATIVE (< 200 ng/mL); Benzodiazepine Urine VISTA NEGATIVE (< 200 ng/mL); Cocaine Urine VISTA NEGATIVE (< 300 ng/mL); Ecstacy Urine VISTA POSITIVE (< 500 ng/mL); Methadone Urine VISTA NEGATIVE (< 300 ng/mL); PCP Urine VISTA NEGATIVE (< 25 ng/mL); THC Urine VISTA POSITIVE (< 50 ng/mL); Vista UDS pH Range 5
[2020-07-13 18:13] VITALS: RESP 16
--- NOTE | 2020-07-13 18:15 | ED.VISSUMM ---
- ER Visit Summary Date of Service: 07/13/20 Chief Complaint: Wants detox History of Present Illness: The patient is a 35 M presenting stating that he wants detox from heroin. He states he uses approximately half a gram of heroin per day. He injects into his arms. His last use was this morning. He has used since 2009. He states he went through detox in 2011. He denies any current symptoms. He also admits to methamphetamine use, rare alcohol use. Physical Examination: Vitals are stable. Patient is afebrile. Alert no acute distress. HEENT exam is unremarkable. Neck is supple. Lungs are clear and equal bilaterally. Heart is regular rate and rhythm. Abdomen is soft nontender nondistended. Extremities Track rosales, no signs of infection Skin is warm and dry. No focal neurologic deficit. Remainder of exam is unremarkable. Emergency Department Course and Treatment: CBC, chemistries show sodium 127. Alk phos 135. Tox shows opiates, methamphetamine, THC. Alcohol negative. Discussed with hospitalist for admission. Disposition: Admission Impression: Opiate dependence This note was generated with [employer] dictation software. It may contain incorrect words, spelling, and punctuation that were not noted in review of the chart prior to signing ED Disposition - Plan for ED Patient:
--- NOTE | 2020-07-13 18:47 | PCM.HP.STD ---
Problem List (1) Acute opioid withdrawal Status: Acute (2) Polysubstance abuse Status: Chronic History of Present Illness Date of Admission: 07/13/20 Chief Complaint: Acute opiate withdrawal. The patient is a 35 year old M with past medical history as mentioned above presented to the emergency room requesting admission for acute opioid withdrawal for medical stabilization. Patient stated that he has been using IV heroin and amphetamines intermittently since 2009. He went into detoxification program back in 2011 but he relapsed. He was in custodial between 2014 and 2016. In between, he has been using IV heroin and amphetamines. Over the last couple of years, he has been using IV heroin and amphetamines on daily basis. His main presenting complaints today is body aches and pains which described as generalized, dull aching, mild, not radiating and no aggravating relieving factors. He denies any other withdrawal symptoms. In the emergency department, his vital signs were stable apart from mild tachycardia. BMP is pending. Illnesses reviewed, no acute infection. Urine drug screen was positive for opioids, amphetamines, amphetamines and cannabinoids. Blood alcohol level is pending. He is being admitted for acute opioid withdrawal for medical stabilization. Past Medical History Past Medical History (Chronic Problems): Chronic Problems Polysubstance abuse (Chronic) Allergies Penicillins [PCN] Allergy (Verified 07/13/20 16:54) Swelling Sulfa (Sulfonamide Antibiotics) Allergy (Verified 07/13/20 16:54) Swelling Home Medications: Ambulatory Orders Medication Instructions Recorded NK 06/10/20 Surgical History: noncontributory Psychiatric History: No pertinent psych hx Lives: Alone Smoking Status: Current every day smoker Tobacco Use: Cigarettes Alcohol: None Drugs: Heroin - *Family History Maternal History Items: No pertinent history Paternal History Items: No pertinent history Review of Systems Constitutional: Denies: Anorexia, Chills, Fever, Weakness Eyes: Denies: Blurred vision, Double vision, Drainage, Redness HEENT: Denies: Difficulty Hearing, Ear Pain, Eye Pain, Nasal Congestion, Sore Throat Cardiovascular: Denies: Chest Pain, Chest Pressure, Edema, Heaviness, Palpitations, Syncope Respiratory: Denies: Cough, Pleuritic Pain, Shortness of Breath, Sputum production, Wheezing Gastrointestinal: Denies: Abdominal Pain, Constipation, Diarrhea, Nausea, Vomiting Genitourinary: Denies: Dysuria, Frequency, Hematuria Musculoskeletal: Denies: Arm Pain, Back Pain, Foot Pain Skin: Denies: Dryness, Rash Neurological: Denies: Balance problems, Double vision, Change in Speech, Slurred speech, Confusion, Headaches, Incoordination, Numbness Psychiatric: Denies: Anxiety, Depression Endocrine: Denies: Change in Body Habitus, Polydipsia, Polyuria VTE Information - Inpt Only VTE Present on Admission: No VTE Mechan Device Prophylaxis: None VTE Pharm Prophylaxis ordered?: No - Physical Exam Vitals/I&O's: Vital Signs Temp Pulse Resp BP Pulse Ox 97.4 F L 116 H 16 118/75 98 07/13/20 16:52 07/13/20 16:52 07/13/20 18:13 07/13/20 16:52 07/13/20 16:52 Oxygen Delivery Method Room Air Weight: 180 lb Body Mass Index (BMI) 26.6 General: Alert, Oriented x3, Cooperative, No apparent distress HEENT: Atraumatic, PERRLA, EOMI, Normocephalic Oral: Moist Mucosa, No Gingival or Mucosal Lesions/ Ulcerations Neck: Supple, No JVD, Negative Carotid Bruits, Trachea Midline, Thyroid Normal Size and Texture Lungs: Clear to auscultation, Normal air movement, No rhonchi, No wheeze, No rales Cardiovascular: Regular rate, Regular Rhythm, Normal S1, Normal S2, PMI Normal Abdomen: Bowel Sounds Present, Soft, Non Tender, Non-Distended, No Hepato-splenomegaly Extremities: No clubbing, No cyanosis, No edema Skin: No rashes, No breakdown Lymphatic: No Cervical, Supraclavicular, or Inguinal Adenopathy Neurological: Cranial nerves II-XII grossly intact, Motor Exam 5/5 strength throughout Psych/Mental Status: Normal Affect, Appropriate, Alert and oriented to time, place, person, mood and affect Laboratory Results 07/13/20 17:31: Urine Color Yellow, Urine Clarity Sl. Cloudy, Urine pH 5.0, Ur Specific [place] 1.020, Urine Protein 30 H, Urine Glucose (UA) Normal, Urine Ketones 5 H, Urine Occult Blood 10 H, Urine Nitrite Negative, Urine Bilirubin 1 H, Urine Urobilinogen 8 H, Ur Leukocyte Esterase 25 H, Urine RBC 0-5 SEEN, Urine WBC 0-5 SEEN, Ur Squamous Epith Cells 0-5 SEEN, Urine Bacteria 1+, Hyaline Casts 0-5 SEEN, Urine Mucus 1+ 07/13/20 17:31: Urine Opiates Screen POSITIVE H, Urine Methadone Screen NEGATIVE, Ur Barbiturates Screen NEGATIVE, Ur Phencyclidine Scrn NEGATIVE, Ur Amphetamines Screen POSITIVE H, U Methamphetamin-MDMA POSITIVE H, U Benzodiazepines Scrn NEGATIVE, Urine Cocaine Screen NEGATIVE, U Cannabinoids Screen POSITIVE H, Ur Drug Screen Comment 07/13/20 18:00: Sodium Pending, Potassium Pending, Chloride Pending, Carbon Dioxide Pending, Anion Gap Pending, BUN Pending, Creatinine Pending, Est GFR (MDRD) Af Amer Pending, Est GFR (MDRD) Non-Af Pending, BUN/Creatinine Ratio Pending, Glucose Pending, Calcium Pending, Total Bilirubin Pending, AST Pending, ALT Pending, Alkaline Phosphatase Pending, Total Protein Pending, Albumin Pending 07/13/20 18:00: Ethyl Alcohol Pending Assessment/Plan All Active Problems Acute opioid withdrawal (Acute) This is a 35 years old male patient presented to the emergency room requesting admission for acute opioid withdrawal for medical stabilization. #1 acute opiate withdrawal: Patient has been using IV heroin and amphetamines intermittently over the last 10 years. He remains off using when he was in custodial between 2014 and 2016. Has been using daily over the last couple of years. Last use was today morning. Urine drug screen was positive for opioids, amphetamines, methamphetamines and cannabinoids. BMP and blood alcohol level are pending. Plan: Admit to MedSurg floor, initiate opioid withdrawal protocol with tapering Subutex, as needed Catapres, Bentyl, Neurontin, Vistaril, Imodium, methocarbamol, Zofran and trazodone, will do CBC, consult 180 program. #2 tobacco abuse: NicoDerm patch. #3 DVT prophylaxis: Low risk patient, no prophylaxis indicated. This note was generated with [facility] dictation software. It may contain incorrect words, spelling, and punctuation that were not noted in checking the note before signing. Inpatient E&M: 12810 Init Hosp L2
[2020-07-13 19:04] LABS: ALB/GLOB Ratio 0.4 RATIO (0.9-2.4); AST(SGOT) 23 U/L (15-37); Alanine Aminotransfer ALT/SGPT 17 U/L (16-61); Albumin, Serum 2.6 g/dL (3.2-5.0); Alkaline Phosphatase 135 U/L (45-117); Anion Gap 4 (5-15); BUN 15 mg/dL (7-18); BUN/Creat Ratio 14.3 RATIO (10-20); Calcium,Total 8.8 mg/dL (8.5-10.1); Chloride 95 mmol/L (98-107); Creatinine, Serum 1.05 mg/dL (0.70-1.30); EST Glomerular Filtration Rate 85 mL/min (>60); Est Glom Filt Rate - Afr Amer 103 mL/min (>60); Estimated Creatinine Clearance 97.26 ml/min; Globulin 6.3 g/dL (2.2-4.2); Glucose 119 mg/dL (74-106); Potassium 4.2 mmol/L (3.5-5.1); Protein, Total 8.9 g/dL (6.4-8.2); Sodium Level 127 mmol/L (136-145)
[2020-07-13 19:32] VITALS: BP 132/76; PULSE 71; RESP 18; TEMP 36.6; O2SAT 99
[2020-07-13 19:48] VITALS: BP 115/79; PULSE 104; RESP 16; TEMP 37.2; O2SAT 97
[2020-07-13 19:52] VITALS: BMI 26.6
[2020-07-13 19:59] VITALS: BMI 23.5
[2020-07-13 20:15] LABS: Absolute Lymphocyte Count 3.03 X10^3/uL (0.83-4.51); Absolute Neutrophil Count 14.5 X10^3/uL (2.0-7.7); Basophil# 0.09 X10^3/uL; Basophil% 0.5 % (0-1); Eosinophil# 0.03 X10^3/uL; Eosinophils% 0.2 % (0-5); Hematocrit 35.6 % (40-54); Hemoglobin 11.4 g/dL (13.0-16.5); Lymphocyte # 3.03 X10^3/ul (4.0); Lymphocyte % 15.8 % (19-41); Mean Corpuscular Hgb 27.5 pg (27.0-32.0); Mean Corpuscular Volume 85.8 fL (80-94); Mean Platelet Vol. 9.7 fl (6.2-12.0); Monocyte# 1.37 X10^3/uL; Monocyte% 7.2 % (0-10); NRBC Flagged by Analyzer 0 % (0-5); Neutrophil # 14.49 X10^3/uL (2.7-7.7); Neutrophil % 75.6 % (47-70); Platelet Count 254 K/mm3 (150-450); RBC Distribution Width CV 13.8 % (11.6-14.6); RBC Distribution Width SD 43.1 fl (35.1-43.9); Red Blood Count 4.15 M/mm3 (4.6-6.2); White Blood Count 19.2 K/mm3 (4.4-11.0)
[2020-07-13] MEDS: Buprenorphine HCl 2 MG TAB.SUBL SL (23:02)
[2020-07-14 02:42] VITALS: BP 133/69; PULSE 96; RESP 18; TEMP 38.3; O2SAT 96
[2020-07-14] MEDS: Acetaminophen 500 MG Tablet PO ×4 (02:51→20:25)
[2020-07-14] MEDS: Ondansetron 8 MG Tablet PO ×2 (02:51→14:18)
[2020-07-14] MEDS: Methocarbamol 750 MG Tablet 1500 MG PO ×3 (02:52→18:17)
--- NOTE | 2020-07-14 03:15 | PCM.HOSP.N ---
Hospitalist Note Notified by nursing the patient had a fever of 101 Fahrenheit. Reviewing the patient's data, patient had a positive COVID tests on the second of this month. He had apparently told nursing that he was told by the Department of Health that he has been ruled out for COVID now. I amnot aware of any such health department statement. But given that he was already positive for COVID will recheck him for COVID-19. If his COVID-19 is negative then he will remain on the third floor, however if it is positive, he will be transferred to the cohort unit.
[2020-07-14 06:11] LABS: Probe Check PASS; Specimen Processing Control PASS
[2020-07-14 06:12] VITALS: TEMP 36.8
[2020-07-14] MEDS: Buprenorphine HCl 2 MG TAB.SUBL SL ×3 (06:17→21:20)
[2020-07-14] MEDS: Dicyclomine 10 MG Capsule 20 MG PO ×2 (06:21→14:18)
[2020-07-14] MEDS: Gabapentin 300 MG Capsule PO ×2 (06:21→16:10)
[2020-07-14] MEDS: hydrOXYzine PAM 25 MG Capsule 50 MG PO ×2 (11:48→18:17)
[2020-07-14] MEDS: cloNIDine HCl 0.1 MG Tablet PO ×2 (11:48→20:25)
--- NOTE | 2020-07-14 12:24 | NT.THERAPY_ITS ---
Nutrition Therapy Report - History Nutrition Services has been consulted to:: Manage nutrient details of diet order Current diet / nutrition support order:: regular, ensure enlive 120mL 4x/day, snacks TID PRN - Anthropometric Measurements Height:: 5 ft 9 in Weight:: 72.2 kg Body Mass Index (BMI):: 23.5 - Relevant Labs Relevant Labs:: WBC 19.2 K/mm3 (4.4-11.0) H 07/13/20 18:00 RBC 4.15 M/mm3 (4.6-6.2) L 07/13/20 18:00 Hgb 11.4 g/dL (13.0-16.5) L 07/13/20 18:00 Hct 35.6 % (40-54) L 07/13/20 18:00 Neut % (Auto) 75.6 % (47-70) H 07/13/20 18:00 Lymph % (Auto) 15.8 % (19-41) L 07/13/20 18:00 Absolute Neuts (auto) 14.5 X10^3/uL (2.0-7.7) H 07/13/20 18:00 Sodium 127 mmol/L (136-145) L 07/13/20 18:00 Chloride 95 mmol/L (98-107) L 07/13/20 18:00 Anion Gap 4 (5-15) L 07/13/20 18:00 Glucose 119 mg/dL (74-106) H 07/13/20 18:00 Alkaline Phosphatase 135 U/L (45-117) H 07/13/20 18:00 Total Protein 8.9 g/dL (6.4-8.2) H 07/13/20 18:00 Albumin 2.6 g/dL (3.2-5.0) L 07/13/20 18:00 Globulin 6.3 g/dL (2.2-4.2) H 07/13/20 18:00 Albumin/Globulin Ratio 0.4 RATIO (0.9-2.4) L 07/13/20 18:00 - Assessment Food / Nutrition-Related History:: Pt describes good intake at breakfast this AM but states appetite/PO intake were fair/variable [employer] for greater than 1 year d/t drug abuse. Pt states he has been unintentionally losing wt over past 3 months. UBW 180# and CBW 159.2#-20.8#/11.5% wt loss x 2 months, significant for malnutrition. Denies issues chewing/swallowing. No special diet followed at home. - Nutrition Diagnosis Problem / Etiology / Signs & Symptoms (PES):: Severe malnutrition in context of social/environmental circumstances related to inadequate energy intake with substance abuse as evidenced by 20.8#/11.5% reported wt loss x 3 months and estimated PO intake meeting less than 50% of pt's estimated nutritional needs for greater than 1 month. Evidence of Malnutrition Exists:: Yes Severe PCM:: Social & Environmental circumstances - Nutrition Intervention Nutrition Prescription:: [id number] calories, 70-85 g protein/day - Food / Nutrient Delivery Interventions Summary of nutrition intervention:: Pt is agreeable to Ensure Enlive w/ medpass as ordered; appears to have adequate PO intake since admission. Nutrition education provided?: Yes - encouraged PO intake, pt requested bananas- kitchen notified - MNT Monitoring Further MNT monitoring and evaluation required?: Yes MNT Follow-up in:: 3-5 days
[2020-07-14 14:15] VITALS: BP 108/39; PULSE 81; RESP 16; TEMP 36.7; O2SAT 94
--- NOTE | 2020-07-14 14:19 | PCM.PN.HOSP ---
Patient Problems: Active and Suspected Problems Acute opioid withdrawal (Acute) Reason for Visit: Follow-up on acute opioid withdrawal. Subjective: Patient was seen and examined. He denied any new complaints. No acute events overnight. Objective: Physical exam: General: Alert, Oriented x3, Cooperative, No apparent distress HEENT: Atraumatic, PERRLA, EOMI, Normocephalic Oral: Moist Mucosa, No Gingival or Mucosal Lesions/ Ulcerations Neck: Supple, No JVD, Negative Carotid Bruits, Trachea Midline, Thyroid Normal Size and Texture Lungs: Clear to auscultation, Normal air movement, No rhonchi, No wheeze, No rales Cardiovascular: Regular rate, Regular Rhythm, Normal S1, Normal S2, PMI Normal Abdomen: Bowel Sounds Present, Soft, Non Tender, Non-Distended, No Hepato-splenomegaly Extremities: No clubbing, No cyanosis, No edema Skin: No rashes, No breakdown Lymphatic: No Cervical, Supraclavicular, or Inguinal Adenopathy Neurological: Cranial nerves II-XII grossly intact, Motor Exam 5/5 strength throughout Psych/Mental Status: Normal Affect, Appropriate, Alert and oriented to time, place, person, mood and affect Vitals/I&O's: Vital Signs Temp Pulse Resp BP Pulse Ox 97.7 F L 66 16 105/69 100 07/14/20 11:30 07/14/20 11:30 07/14/20 11:30 07/14/20 11:30 07/14/20 11:30 Oxygen Delivery Method Room Air Weight: 72.2 kg Body Mass Index (BMI) 23.5 Intake and Output for Last 24 Hours 07/12/20 07/13/20 07/14/20 23:59 23:59 23:59 Intake Total 800 / 800 840 / 840 Balance 800 / 800 840 / 840 Laboratory Results 07/13/20 17:31: Urine Color Yellow, Urine Clarity Sl. Cloudy, Urine pH 5.0, Ur Specific [place] 1.020, Urine Protein 30 H, Urine Glucose (UA) Normal, Urine Ketones 5 H, Urine Occult Blood 10 H, Urine Nitrite Negative, Urine Bilirubin 1 H, Urine Urobilinogen 8 H, Ur Leukocyte Esterase 25 H, Urine RBC 0-5 SEEN, Urine WBC 0-5 SEEN, Ur Squamous Epith Cells 0-5 SEEN, Urine Bacteria 1+, Hyaline Casts 0-5 SEEN, Urine Mucus 1+ 07/13/20 17:31: Urine Opiates Screen POSITIVE H, Urine Methadone Screen NEGATIVE, Ur Barbiturates Screen NEGATIVE, Ur Phencyclidine Scrn NEGATIVE, Ur Amphetamines Screen POSITIVE H, U Methamphetamin-MDMA POSITIVE H, U Benzodiazepines Scrn NEGATIVE, Urine Cocaine Screen NEGATIVE, U Cannabinoids Screen POSITIVE H, Ur Drug Screen Comment 07/13/20 18:00: Sodium 127 L, Potassium 4.2, Chloride 95 L, Carbon Dioxide 28.0, Anion Gap 4 L, BUN 15, Creatinine 1.05, Estim Creat Clear Calc 97.26, Est GFR (MDRD) Af Amer 103, Est GFR (MDRD) Non-Af 85, BUN/Creatinine Ratio 14.3, Glucose 119 H, Calcium 8.8, Total Bilirubin 0.40, AST 23, ALT 17, Alkaline Phosphatase 135 H, Total Protein 8.9 H, Albumin 2.6 L, Globulin 6.3 H, Albumin/Globulin Ratio 0.4 L 07/13/20 18:00: Ethyl Alcohol 4.0 07/13/20 18:00: WBC 19.2 H, RBC 4.15 L, Hgb 11.4 L, Hct 35.6 L, MCV 85.8, MCH 27.5, MCHC 32.0, RDW Std Deviation 43.1, RDW Coeff of Saul 13.8, Plt Count 254, MPV 9.7, Immature Gran % (Auto) 0.700, Neut % (Auto) 75.6 H, Lymph % (Auto) 15.8 L, [place] % (Auto) 7.2, Eos % (Auto) 0.2, Baso % (Auto) 0.5, Absolute Neuts (auto) 14.5 H, Absolute Lymphs (auto) 3.03, Nucleated RBC % 0 07/14/20 03:46: COVID-19 (ELIANA) Not Detected Current Medications Acetaminophen (Acetaminophen 500 Mg Tablet) 500 mg PO Q4H PRN PRN PRN Reason: Temp > 100.4 F Last Admin: 07/14/20 11:48 Dose: 500 mg Documented by: Buprenorphine HCl (Buprenorphine Hcl 2 Mg Tab.Subl) 4 mg SL Q8H ANGEL LUIS; Taper Stop: 07/16/20 22:14 Last Admin: 07/14/20 06:17 Dose: 4 mg Documented by: Clonidine (Clonidine Hcl 0.1 Mg Tablet) 0.1 mg PO Q8H PRN PRN PRN Reason: RESTLESSNESS Last Admin: 07/14/20 11:48 Dose: 0.1 mg Documented by: Dicyclomine HCl (Dicyclomine 10 Mg Capsule) 20 mg PO Q6H PRN PRN PRN Reason: Abdominal Discomfort Last Admin: 07/14/20 06:21 Dose: 20 mg Documented by: Gabapentin (Gabapentin 300 Mg Capsule) 300 mg PO Q8H PRN PRN PRN Reason: moderate to severe anxiety Last Admin: 07/14/20 06:21 Dose: 300 mg Documented by: Hydroxyzine Pamoate (Hydroxyzine Shelia 25 Mg Capsule) 50 mg PO Q6H PRN PRN PRN Reason: mild anxiety Last Admin: 07/14/20 11:48 Dose: 50 mg Documented by: Loperamide HCl (Loperamide 2 Mg Capsule) 2 mg PO Q4H PRN PRN PRN Reason: LOOSE STOOLS Methocarbamol (Methocarbamol 750 Mg Tablet) 1,500 mg PO Q6H PRN PRN PRN Reason: MUSCLE SPASM Last Admin: 07/14/20 11:48 Dose: 1,500 mg Documented by: Nicotine (Nicotine 21 Mg Patch) 21 mg TRANSDERM. DAILY [facility] Last Admin: 07/14/20 11:41 Dose: 21 mg Documented by: Nutritional Formula (Lactose Free) (Ensure Enlive 120 Ml Liquid) 120 ml PO 4X/DAY ANGEL LUIS Last Admin: 07/14/20 11:48 Dose: 120 ml Documented by: Ondansetron HCl (Ondansetron 8 Mg Tablet) 8 mg PO Q8H PRN PRN PRN Reason: NAUSEA Last Admin: 07/14/20 02:51 Dose: 8 mg Documented by: Sodium Chloride (0.9% Saline Lock 10 Ml Syringe) 10 - 40 ml IV UD PRN PRN Reason: SALINE FLUSH Trazodone HCl (Trazodone 100 Mg Tablet) 100 mg PO QHS PRN PRN PRN Reason: INSOMNIA STROKE Vital Signs/Narrative: Vital Signs Temp Pulse Resp BP Pulse Ox 07/14/20 11:30 97.7 F L 66 16 105/69 100 Medical Necessity - Tobacco Use Smoking Status: Current every day smoker Tobacco Use: Cigarettes Assessment/Plan All Active Problems Acute opioid withdrawal (Acute) 1. Acute opioid withdrawal, patient appears stable And tox positive for opiates, amphetamines, methamphetamines, cannabinoids Patient continues to require medication and monitoring for withdrawal based on regular assessment and remains appropriate for ASAM level 4.0 Continue on buprenorphine taper 2. Hyponatremia, chronic, will repeat blood work in a.m. 3. Leucocytosis, likely reactive, no signs of sepsis, repeat blood work in a.m. 4. Nicotine dependence, advised to quit, will continue on replacement 5. Polysubstance use, advised to quit 6. DVT prophylaxis with early ambulation Inpatient E&M: 59281 Subs Hosp L2
[2020-07-14 20:18] VITALS: BP 111/63; PULSE 104; RESP 18; TEMP 38; O2SAT 96
[2020-07-14 21:59] VITALS: TEMP 37.8
[2020-07-15 02:20] VITALS: BP 105/61; PULSE 84; RESP 16; TEMP 37.8; O2SAT 97
[2020-07-15] MEDS: Methocarbamol 750 MG Tablet 1500 MG PO ×3 (02:55→18:02)
[2020-07-15] MEDS: Dicyclomine 10 MG Capsule 20 MG PO ×3 (02:57→18:02)
[2020-07-15] MEDS: Ondansetron 8 MG Tablet PO ×2 (02:58→14:18)
[2020-07-15] MEDS: Acetaminophen 500 MG Tablet PO ×4 (02:58→21:57)
[2020-07-15] MEDS: hydrOXYzine PAM 25 MG Capsule 50 MG PO ×3 (02:58→20:39)
[2020-07-15 05:18] LABS: Absolute Lymphocyte Count 3.68 X10^3/uL (0.83-4.51); Absolute Neutrophil Count 10.8 X10^3/uL (2.0-7.7); Basophil# 0.06 X10^3/uL; Basophil% 0.4 % (0-1); Eosinophil# 0.09 X10^3/uL; Eosinophils% 0.6 % (0-5); Hematocrit 32.8 % (40-54); Hemoglobin 10.2 g/dL (13.0-16.5); Lymphocyte # 3.68 X10^3/ul (4.0); Lymphocyte % 22.8 % (19-41); Mean Corp Hgb Conc 31.1 g/dL (32-36); Mean Corpuscular Hgb 27.1 pg (27.0-32.0); Mean Corpuscular Volume 87.2 fL (80-94); Mean Platelet Vol. 9.3 fl (6.2-12.0); Monocyte# 1.36 X10^3/uL; Monocyte% 8.4 % (0-10); NRBC Flagged by Analyzer 0 % (0-5); Neutrophil # 10.79 X10^3/uL (2.7-7.7); Platelet Count 162 K/mm3 (150-450); RBC Distribution Width CV 13.8 % (11.6-14.6); RBC Distribution Width SD 43.5 fl (35.1-43.9); Red Blood Count 3.76 M/mm3 (4.6-6.2); White Blood Count 16.1 K/mm3 (4.4-11.0)
[2020-07-15] MEDS: Buprenorphine HCl 2 MG TAB.SUBL SL ×3 (05:26→21:14)
[2020-07-15] MEDS: cloNIDine HCl 0.1 MG Tablet PO ×2 (05:30→20:39)
[2020-07-15 05:37] LABS: ALB/GLOB Ratio 0.3 RATIO (0.9-2.4); AST(SGOT) 18 U/L (15-37); Alanine Aminotransfer ALT/SGPT 15 U/L (16-61); Alkaline Phosphatase 135 U/L (45-117); Anion Gap 3 (5-15); BUN 14 mg/dL (7-18); BUN/Creat Ratio 15.8 RATIO (10-20); Calcium,Total 8.5 mg/dL (8.5-10.1); Chloride 98 mmol/L (98-107); Creatinine, Serum 0.89 mg/dL (0.70-1.30); EST Glomerular Filtration Rate 103 mL/min (>60); Est Glom Filt Rate - Afr Amer 125 mL/min (>60); Estimated Creatinine Clearance 114.74 ml/min; Globulin 5.8 g/dL (2.2-4.2); Glucose 113 mg/dL (74-106); Potassium 4.3 mmol/L (3.5-5.1); Protein, Total 7.8 g/dL (6.4-8.2); Sodium Level 129 mmol/L (136-145)
--- NOTE | 2020-07-15 07:44 | PN_ITS ---
Patient Problems: Active and Suspected Problems Acute opioid withdrawal (Acute) Reason for Visit: Follow-up on acute opioid withdrawal Subjective: Patient was seen and examined. He stated that he feels improved. He is however running low grade temperatures with a T-max of 101.0F. Patient was recently tested for COVID on 07/14/20 and was negative. No nausea or vomiting or diarrhea. WBC remains also elevated, slightly improved. No rashes or swellings complained of. Objective: Physical exam: General: Alert, Oriented x3, Cooperative, No apparent distress HEENT: Atraumatic, PERRLA, EOMI, Normocephalic Oral: Moist Mucosa, No Gingival or Mucosal Lesions/ Ulcerations Neck: Supple, No JVD, Negative Carotid Bruits, Trachea Midline, Thyroid Normal Size and Texture Lungs: Clear to auscultation, Normal air movement, No rhonchi, No wheeze, No rales Cardiovascular: Regular rate, Regular Rhythm, Normal S1, Normal S2, PMI Normal Abdomen: Bowel Sounds Present, Soft, Non Tender, Non-Distended, No Hepato- splenomegaly Extremities: No clubbing, No cyanosis, No edema Skin: No rashes, No breakdown Lymphatic: No Cervical, Supraclavicular, or Inguinal Adenopathy Neurological: Cranial nerves II-XII grossly intact, Motor Exam 5/5 strength throughout Psych/Mental Status: Normal Affect, Appropriate, Alert and oriented to time, place, person, mood and affect Vitals/I&O's: Vital Signs Temp Pulse Resp BP Pulse Ox 100.1 F H 84 16 105/61 97 07/15/20 02:20 07/15/20 02:20 07/15/20 02:20 07/15/20 02:20 07/15/20 02:20 Oxygen Delivery Method Room Air Weight: 72.2 kg Body Mass Index (BMI) 23.5 Intake and Output for Last 24 Hours 07/13/20 07/14/20 07/15/20 23:59 23:59 23:59 Intake Total 800 / 800 1340 / 1340 Balance 800 / 800 1340 / 1340 Laboratory Results 07/15/20 05:02: WBC 16.1 H, RBC 3.76 L, Hgb 10.2 L, Hct 32.8 L, MCV 87.2, MCH 27.1, MCHC 31.1 L, RDW Std Deviation 43.5, RDW Coeff of Saul 13.8, Plt Count 162, MPV 9.3, Immature Gran % (Auto) 0.800, Neut % (Auto) 67.0, Lymph % (Auto) 22.8, [place] % (Auto) 8.4, Eos % (Auto) 0.6, Baso % (Auto) 0.4, Absolute Neuts (auto) 10.8 H, Absolute Lymphs (auto) 3.68, Nucleated RBC % 0 07/15/20 05:02: Sodium 129 L, Potassium 4.3, Chloride 98, Carbon Dioxide 28.0, Anion Gap 3 L, BUN 14, Creatinine 0.89, Estim Creat Clear Calc 114.74, Est GFR (MDRD) Af Amer 125, Est GFR (MDRD) Non-Af 103, BUN/Creatinine Ratio 15.8, Glucose 113 H, Calcium 8.5, Total Bilirubin 0.40, AST 18, ALT 15 L, Alkaline Phosphatase 135 H, Total Protein 7.8, Albumin 2.0 L, Globulin 5.8 H, Albumin/Globulin Ratio 0.3 L Current Medications Acetaminophen (Acetaminophen 500 Mg Tablet) 500 mg PO Q4H PRN PRN PRN Reason: Temp > 100.4 F Last Admin: 07/15/20 02:58 Dose: 500 mg Documented by: Buprenorphine HCl (Buprenorphine Hcl 2 Mg Tab.Subl) 2 mg SL Q8H ANGEL LUIS; Taper Stop: 07/16/20 22:14 Last Admin: 07/15/20 05:26 Dose: 2 mg Documented by: Clonidine (Clonidine Hcl 0.1 Mg Tablet) 0.1 mg PO Q8H PRN PRN PRN Reason: RESTLESSNESS Last Admin: 07/15/20 05:30 Dose: 0.1 mg Documented by: Dicyclomine HCl (Dicyclomine 10 Mg Capsule) 20 mg PO Q6H PRN PRN PRN Reason: Abdominal Discomfort Last Admin: 07/15/20 02:57 Dose: 20 mg Documented by: Gabapentin (Gabapentin 300 Mg Capsule) 300 mg PO Q8H PRN PRN PRN Reason: moderate to severe anxiety Last Admin: 07/14/20 16:10 Dose: 300 mg Documented by: Hydroxyzine Pamoate (Hydroxyzine Shelia 25 Mg Capsule) 50 mg PO Q6H PRN PRN PRN Reason: mild anxiety Last Admin: 07/15/20 02:58 Dose: 50 mg Documented by: Loperamide HCl (Loperamide 2 Mg Capsule) 2 mg PO Q4H PRN PRN PRN Reason: LOOSE STOOLS Methocarbamol (Methocarbamol 750 Mg Tablet) 1,500 mg PO Q6H PRN PRN PRN Reason: MUSCLE SPASM Last Admin: 07/15/20 02:55 Dose: 1,500 mg Documented by: Nicotine (Nicotine 21 Mg Patch) 21 mg TRANSDERM. DAILY ANGEL LUIS Last Admin: 07/14/20 11:41 Dose: 21 mg Documented by: Nutritional Formula (Lactose Free) (Ensure Enlive 120 Ml Liquid) 120 ml PO 4X/DAY ANGEL LUIS Last Admin: 07/14/20 21:20 Dose: 120 ml Documented by: Ondansetron HCl (Ondansetron 8 Mg Tablet) 8 mg PO Q8H PRN PRN PRN Reason: NAUSEA Last Admin: 07/15/20 02:58 Dose: 8 mg Documented by: Sodium Chloride (0.9% Saline Lock 10 Ml Syringe) 10 - 40 ml IV UD PRN PRN Reason: SALINE FLUSH Trazodone HCl (Trazodone 100 Mg Tablet) 100 mg PO QHS PRN PRN PRN Reason: INSOMNIA Medical Necessity - Tobacco Use Smoking Status: Current every day smoker Tobacco Use: Cigarettes Assessment/Plan All Active Problems Acute opioid withdrawal (Acute) 1. Fevers, unclear etiology, low-grade, COVID-19 test on 07/14/20 was negative Will get blood cultures, respiratory panel, Repeat COVID-19 test We will continue on isolation pending results Repeat CBCD in a.m. 2. Acute opioid withdrawal, slowly improving Urine tox positive for opiates, amphetamines, methamphetamines, cannabinoids Patient continues to require medication and monitoring for withdrawal based on regular assessment and remains appropriate for ASAM level 4.0 Continue on buprenorphine taper 2. Hyponatremia, remains about the same, chronic, will repeat blood work in a.m. 3. Leucocytosis, likely reactive, no signs of sepsis, repeat blood work in a.m. 4. Nicotine dependence, advised to quit, will continue on replacement 5. Polysubstance use, advised to quit 6. DVT prophylaxis with early ambulation Inpatient E&M: 15427 [facility] Hosp L2
[2020-07-15 09:20] VITALS: BP 101/58; PULSE 84; RESP 16; TEMP 37.1; O2SAT 97
[2020-07-15] MEDS: Gabapentin 300 MG Capsule PO ×2 (09:25→18:03)
[2020-07-15 14:15] VITALS: BP 96/65; PULSE 65; RESP 16; TEMP 36.4; O2SAT 99
--- NOTE | 2020-07-15 18:14 | NURSING ---
David Echols from called and left phone number in case pt had questions related to discharge planning. [phone]
[2020-07-15 20:20] VITALS: BP 112/59; PULSE 95; RESP 16; TEMP 39.3; O2SAT 97
[2020-07-16 02:10] VITALS: BP 103/65; PULSE 79; RESP 18; TEMP 37.7; O2SAT 96
[2020-07-16] MEDS: Dicyclomine 10 MG Capsule 20 MG PO ×2 (02:46→19:57)
[2020-07-16] MEDS: Acetaminophen 500 MG Tablet PO ×3 (02:47→19:57)
[2020-07-16] MEDS: Methocarbamol 750 MG Tablet 1500 MG PO ×2 (02:47→19:57)
[2020-07-16] MEDS: hydrOXYzine PAM 25 MG Capsule 50 MG PO ×2 (02:47→19:57)
[2020-07-16] MEDS: Gabapentin 300 MG Capsule PO (06:45)
[2020-07-16 07:01] LABS: Absolute Lymphocyte Count 3.69 X10^3/uL (0.83-4.51); Absolute Neutrophil Count 8.9 X10^3/uL (2.0-7.7); Basophil# 0.08 X10^3/uL; Basophil% 0.6 % (0-1); Eosinophil# 0.15 X10^3/uL; Eosinophils% 1.1 % (0-5); Hematocrit 35.3 % (40-54); Hemoglobin 10.8 g/dL (13.0-16.5); Lymphocyte # 3.69 X10^3/ul (4.0); Lymphocyte % 26.2 % (19-41); Mean Corp Hgb Conc 30.6 g/dL (32-36); Mean Corpuscular Hgb 26.6 pg (27.0-32.0); Mean Corpuscular Volume 86.9 fL (80-94); Mean Platelet Vol. 9.4 fl (6.2-12.0); Monocyte# 1.19 X10^3/uL; Monocyte% 8.4 % (0-10); NRBC Flagged by Analyzer 0 % (0-5); Neutrophil # 8.86 X10^3/uL (2.7-7.7); Neutrophil % 62.8 % (47-70); Platelet Count 170 K/mm3 (150-450); RBC Distribution Width CV 13.7 % (11.6-14.6); RBC Distribution Width SD 43.7 fl (35.1-43.9); Red Blood Count 4.06 M/mm3 (4.6-6.2); White Blood Count 14.1 K/mm3 (4.4-11.0)
[2020-07-16 07:34] LABS: ALB/GLOB Ratio 0.3 RATIO (0.9-2.4); AST(SGOT) 20 U/L (15-37); Alanine Aminotransfer ALT/SGPT 14 U/L (16-61); Albumin, Serum 1.9 g/dL (3.2-5.0); Alkaline Phosphatase 128 U/L (45-117); Anion Gap 3 (5-15); BUN 11 mg/dL (7-18); BUN/Creat Ratio 11.6 RATIO (10-20); Calcium,Total 8.8 mg/dL (8.5-10.1); Chloride 101 mmol/L (98-107); Creatinine, Serum 0.95 mg/dL (0.70-1.30); EST Glomerular Filtration Rate 95 mL/min (>60); Est Glom Filt Rate - Afr Amer 115 mL/min (>60); Globulin 6.1 g/dL (2.2-4.2); Glucose 111 mg/dL (74-106); Potassium 4.5 mmol/L (3.5-5.1); Sodium Level 132 mmol/L (136-145)
[2020-07-16 08:30] VITALS: BP 101/61; PULSE 85; RESP 18; TEMP 39; O2SAT 98
--- NOTE | 2020-07-16 09:22 | RAD_ITS ---
STUDY: X-RAY CHEST REASON FOR EXAM: Male, 35 years old. Fever since 10-16 -- pt states had COVID at beginning of month, test 2 days ago was negative TECHNIQUE: PA and lateral views of the chest. COMPARISON: Comparison is made with prior study 06/29/2020. FINDINGS: Patchy infiltrate in the left lower lobe. Mild increased markings in the right lower lobe. There is no demonstrated pleural abnormality. Normal size heart. Normal mediastinum and tg. Normal visualized pulmonary arteries. Normal visualized aortic arch and descending thoracic aorta. Normal visualized thoracic spine. Normal visualized ribs, clavicles, and shoulders. There is no demonstrated abnormality of the visualized soft tissue structures of the upper abdomen. RAD/Chest PA and Lateral IMPRESSION: Patchy infiltrate in the left lower lobe with mild degree of increased markings in the right lower lobe. Electronically Signed: Raj Guerrero, at 14:33 EDT , Service support ,
--- NOTE | 2020-07-16 09:44 | ECHOD_ITS ---
Reason For Study: FEVER, IVDA, Opiods Procedure This was a 2D Doppler, Color Flow transthoracic echocardiogram. The exam was of adequate technical quality. Exam performed portable in patient room. Left Ventricle Normal LV size. Left ventricular systolic function is normal. The estimated ejection fraction is 55 %. No evidence for diastolic dysfunction. No regional wall motion abnormalities noted. Right Ventricle Normal RV size. Normal systolic function. Atria Borderline to mildly enlarged left atrium. Normal right atrium. No doppler evidence for ASD. Mitral Valve There is no mitral annular calcification. Mild diffuse mitral valve thickening. Trivial mitral valve insufficiency. Tricuspid Valve 2D echocardiographic images obtained demonstrate a vague mobile echodensity (approximately 0.5 cm x 1.0 cm) associated with the tricuspid valve chordae tendonae with a differential diagnosis including a vegetation. Trivial tricuspid valve insufficiency. Right ventricular systolic pressure estimated to be 32 mmHg. Aortic Valve Trisinus/trileaflet aortic valve. Normal aortic valve. Pulmonic Valve The pulmonic valve is not well visualized. Trivial pulmonic valve insufficiency. Great Vessels Normal sized aortic root. Pericardium/Pleural No pericardial effusion. MMode/2D Measurements & Calculations LVIDd: 4.8 cm IVSd: 0.88 cm Ao root diam: 3.5 cm LVIDs: 3.3 cm LVPWd: 0.89 cm FS: 31.5 % LAV(MOD-bp): 60.4 ml LVAd ap4: 36.3 cm2 SV(MOD-sp4): 69.5 ml LAV(MOD-bp) Indexed: 32.2 ml/m2 EDV(MOD-sp4): 123.8 ml LAV(MOD-sp2): 51.5 ml EDV(sp4-el): 126.7 ml LAV(MOD-sp4): 59.8 ml LVAs ap4: 22.3 cm2 ESV(MOD-sp4): 54.4 ml ESV(sp4-el): 54.6 ml EF(MOD-sp4): 56.1 % EF(sp4-el): 56.9 % SV(sp4-el): 72.2 ml LA A4 area: 20.9 cm2 LA dimension(2D): 4.3 cm RA A4 area: 14.1 cm2 Time Measurements MV dec time: 0.24 sec Doppler Measurements & Calculations MV E max brendon: 94.1 cm/sec Lat Peak E' Brendon: 18.7 cm/sec Med Peak E' Brendon: 10.9 cm/sec MV A max brendon: 49.1 cm/sec E/E' lat: 5.0 E/E' med: 8.6 MV E/A: 1.9 Ao V2 max: 120.2 cm/sec LV V1 max: 116.2 cm/sec TR max brendon: 269.5 cm/sec Ao max P.8 mmHg LV V1 max P.4 mmHg TR max P.0 mmHg Interpretation Summary Left ventricular systolic function is normal. The estimated ejection fraction is 55 %. Borderline to mildly enlarged left atrium. Mild diffuse mitral valve thickening. Trivial mitral valve insufficiency. 2D echocardiographic images obtained demonstrate a vague mobile echodensity (approximately 0.5 cm x 1.0 cm) associated with the tricuspid valve chordae tendonae with a differential diagnosis including a vegetation. Trivial pulmonic valve insufficiency. Right ventricular systolic pressure estimated to be 32 mmHg. No evidence for diastolic dysfunction. Ordering Physician: Elkin Garcia Performed By: Julee Damian, BETZY, RVT
[2020-07-16] MEDS: Buprenorphine HCl 2 MG TAB.SUBL SL (11:06)
[2020-07-16 11:08] LABS: Procalcitonin 0.32 ng/mL (0.00-0.09)
[2020-07-16] MEDS: Vancomycin IV 1,000 MG/200 ML BAG 200 MG IV ×2 (12:00→19:58)
--- NOTE | 2020-07-16 12:46 | PCM.RX.CS ---
Consult Pharmacy has been consulted to manage selected antiobiotic: Vancomycin Type of Consult: New start Labs: Sodium 132 mmol/L (136-145) L 07/16/20 06:35 Potassium 4.5 mmol/L (3.5-5.1) 07/16/20 06:35 Chloride 101 mmol/L (98-107) 07/16/20 06:35 Carbon Dioxide 28.0 mmol/L (21.0-32.0) 07/16/20 06:35 Anion Gap 3 (5-15) L 07/16/20 06:35 BUN 11 mg/dL (7-18) 07/16/20 06:35 Creatinine 0.95 mg/dL (0.70-1.30) 07/16/20 06:35 Est GFR (MDRD) Af Amer 115 mL/min (>60) 07/16/20 06:35 Est GFR (MDRD) Non-Af 95 mL/min (>60) 07/16/20 06:35 BUN/Creatinine Ratio 11.6 RATIO (-) 07/16/20 06:35 Glucose 111 mg/dL (74-106) H 07/16/20 06:35 Microbiology: Microbiology 07/15/20 14:30 Mucosa - Nasopharyngeal Respiratory Panel (PCR) - Final Weight used for dosin.2 kg Estimated Creatinine Clearance: >100ML/MIN Goal Trough: 15-20 mcg/mL Pharmacy Plan for Drug Dosing: Give initial dose of 1000mg IV x1, then continue with 1000mg IV q8h per [facility] vancomycin dosing protocol for trough goal of 15-20. Will check the trough before the 4th dose tomorrow. Pharmacy Service will continue to monitor and adjust dosing as required. Follow-Up Labs: Trough Vancomycin Labs to be done on [date and time ordered]: 07/17/20 11:30
--- NOTE | 2020-07-16 13:41 | PCM.PN.HOSP ---
Patient Problems: Active and Suspected Problems Acute opioid withdrawal (Acute) Reason for Visit: Fever. IVDA. Leukocytosis Objective: Patient has fever chills since last Thursday evening before admission. T-max 102.7 Fahrenheit last night. Patient denies cough, sputum production, loss of taste and smell, nausea, vomiting or abdominal pain. Denies lower related symptoms. Denies previous MRSA infection, abscess, endocarditis or osteomyelitis. IVDA. Physical exam General: Alert, Oriented x3, Cooperative HEENT: Atraumatic, PERRLA, EOMI, Normocephalic Oral: No Gingival or Mucosal Lesions/ Ulcerations Neck: Supple, No JVD, Negative Carotid Bruits Lungs: Air entry diminished in bilateral lung bases. No crepitation/rhonchi Cardiovascular: Regular rate, Regular Rhythm, Normal S1, Normal S2, No murmurs Abdomen: Bowel Sounds Present, Soft, Non Tender, Non-Distended : No renal angle tenderness. No suprapubic tenderness. Extremities: No edema, Capillary Refill Less than 3 Seconds Skin: No rashes, No breakdown. Bilateral antecubital chronic thrombophlebitis Musculoskeletal: No Tenderness to Palpation of Joints or Extremities Neurological: Cranial nerves II-XII grossly intact, Deep Tendon Reflexes 2+/4 and Symmetrical, Neuro grossly intact Psych/Mental Status: Normal Affect, Appropriate. Vitals/I&O's: Vital Signs Temp Pulse Resp BP Pulse Ox 102.2 F H 85 18 101/61 98 07/16/20 08:30 07/16/20 08:30 07/16/20 08:30 07/16/20 08:30 07/16/20 08:30 Oxygen Delivery Method Room Air Weight: 159 lb 2.78 oz Body Mass Index (BMI) 23.5 Intake and Output for Last 24 Hours 07/14/20 07/15/20 07/16/20 23:59 23:59 23:59 Intake Total 1340 / 1340 960 / 960 Balance 1340 / 1340 960 / 960 Microbiology Past 72 Hours 07/15/20 14:30 Mucosa - Nasopharyngeal Respiratory Panel (PCR) - Final Laboratory Results 07/15/20 14:30: COVID-19 (ELIANA) Not Detected 07/16/20 06:35: WBC 14.1 H, RBC 4.06 L, Hgb 10.8 L, Hct 35.3 L, MCV 86.9, MCH 26.6 L, MCHC 30.6 L, RDW Std Deviation 43.7, RDW Coeff of Saul 13.7, Plt Count 170, MPV 9.4, Immature Gran % (Auto) 0.900, Neut % (Auto) 62.8, Lymph % (Auto) 26.2, [place] % (Auto) 8.4, Eos % (Auto) 1.1, Baso % (Auto) 0.6, Absolute Neuts (auto) 8.9 H, Absolute Lymphs (auto) 3.69, Nucleated RBC % 0 07/16/20 06:35: Sodium 132 L, Potassium 4.5, Chloride 101, Carbon Dioxide 28.0, Anion Gap 3 L, BUN 11, Creatinine 0.95, Estim Creat Clear Calc 107.50, Est GFR (MDRD) Af Amer 115, Est GFR (MDRD) Non-Af 95, BUN/Creatinine Ratio 11.6, Glucose 111 H, Calcium 8.8, Total Bilirubin 0.40, AST 20, ALT 14 L, Alkaline Phosphatase 128 H, Total Protein 8.0, Albumin 1.9 L, Globulin 6.1 H, Albumin/Globulin Ratio 0.3 L 07/16/20 06:35: Procalcitonin 0.32 H 07/16/20 12:30: MRSA (PCR) Pending Current Medications Acetaminophen (Acetaminophen 500 Mg Tablet) 500 mg PO Q4H PRN PRN PRN Reason: Temp > 100.4 F Last Admin: 07/16/20 09:00 Dose: 500 mg Documented by: Buprenorphine HCl (Buprenorphine Hcl 2 Mg Tab.Subl) 2 mg SL Q12H ANGEL LUIS; Taper Stop: 07/16/20 22:14 Last Admin: 07/16/20 11:06 Dose: 2 mg Documented by: Clonidine (Clonidine Hcl 0.1 Mg Tablet) 0.1 mg PO Q8H PRN PRN PRN Reason: RESTLESSNESS Last Admin: 07/15/20 20:39 Dose: 0.1 mg Documented by: Dicyclomine HCl (Dicyclomine 10 Mg Capsule) 20 mg PO Q6H PRN PRN PRN Reason: Abdominal Discomfort Last Admin: 07/16/20 02:46 Dose: 20 mg Documented by: Gabapentin (Gabapentin 300 Mg Capsule) 300 mg PO Q8H PRN PRN PRN Reason: moderate to severe anxiety Last Admin: 07/16/20 06:45 Dose: 300 mg Documented by: Hydroxyzine Pamoate (Hydroxyzine Shelia 25 Mg Capsule) 50 mg PO Q6H PRN PRN PRN Reason: mild anxiety Last Admin: 07/16/20 02:47 Dose: 50 mg Documented by: Vancomycin IV Pharmacy to Dose (1 ea/ Sodium Chloride) 500 mls @ 250 mls/hr IV DAILY PRN; Protocol PRN Reason: RX TO DOSE Cefepime HCl 2 gm/ Sodium (Chloride) 100 mls @ 200 mls/hr IV Q8 ANGEL LUIS Last Admin: 07/16/20 13:12 Dose: 200 mls/hr Documented by: Vancomycin HCl (Vancomycin) 1,000 mg in 200 mls @ 200 mls/hr IV Q12H ANGEL LUIS Loperamide HCl (Loperamide 2 Mg Capsule) 2 mg PO Q4H PRN PRN PRN Reason: LOOSE STOOLS Methocarbamol (Methocarbamol 750 Mg Tablet) 1,500 mg PO Q6H PRN PRN PRN Reason: MUSCLE SPASM Last Admin: 07/16/20 02:47 Dose: 1,500 mg Documented by: Nicotine (Nicotine 21 Mg Patch) 21 mg TRANSDERM. DAILY [facility] Last Admin: 07/16/20 11:10 Dose: 21 mg Documented by: Nutritional Formula (Lactose Free) (Ensure Enlive 120 Ml Liquid) 120 ml PO 4X/DAY [facility] Last Admin: 07/16/20 13:18 Dose: 120 ml Documented by: Ondansetron HCl (Ondansetron 8 Mg Tablet) 8 mg PO Q8H PRN PRN PRN Reason: NAUSEA Last Admin: 07/15/20 14:18 Dose: 8 mg Documented by: Sodium Chloride (0.9% Saline Lock 10 Ml Syringe) 10 - 40 ml IV UD PRN PRN Reason: SALINE FLUSH Trazodone HCl (Trazodone 100 Mg Tablet) 100 mg PO QHS PRN PRN PRN Reason: INSOMNIA Medical Necessity - Tobacco Use Smoking Status: Current every day smoker Tobacco Use: Cigarettes Assessment/Plan All Active Problems Acute opioid withdrawal (Acute) This 35-year-old with history of chronic hepatitis C with hep C antibody positive on 11/23/2019 was admitted with acute opioid withdrawal symptoms. Patient was found febrile. 1. Fevers, of unclear etiology: COVID-19 test on 07/14/20 was negative and 2018. Blood cultures x2 on 07/15 are pending. Respiratory panel negative. Empirically started on IV vancomycin and Zosyn. ID consult. Chest x-ray PA and lateral ordered. UA LE 25, WBC 0-5 cells. Patient denies any lower urinary tract symptoms. Leukocytosis trending down. 2. Acute opioid withdrawal, slowly improving Urine tox positive for opiates, amphetamines, methamphetamines, cannabinoids Patient continues to require medication and monitoring for withdrawal based on regular assessment and remains appropriate for ASAM level 4.0 Continue on buprenorphine taper 2. Hyponatremia, remains about the same, chronic, will repeat blood work in a.m. 3 nicotine dependence, advised to quit, continue on replacement 4 polysubstance use, advised to quit 5 DVT prophylaxis with early ambulation Inpatient E&M: 31829 Subs Hosp L2
--- NOTE | 2020-07-16 15:32 | CON.PCM_ITS ---
Problem List (1) Fever Status: Acute Reason for Consult: fever Consulted by: Dr. Garcia History of Present Illness: The patient is a 35 year old M with IVDU, covid dx on 06/29, reports ongoing fever since covid dx. Came to hospital for detox. Last IVDU a few days ago. Denies sharing needles, no licking needles. No abscess or rash. Has h/o hep C, no prior treatment. Other covid sx (aches, headache, diarrhea, cough, and change in taste) have resolved. Still with fever. Bcx sent, started on vanc/cefepime. Feeling about the same. Full ROS performed and neg except as noted above. - Medical History Past Medical History (Chronic Problems): Chronic Problems Polysubstance abuse (Chronic) Allergies/Adverse Reactions: Allergies Penicillins [PCN] Allergy (Verified 07/13/20 16:54) Swelling Sulfa (Sulfonamide Antibiotics) Allergy (Verified 07/13/20 16:54) Swelling Home Medications: Ambulatory Orders Medication Instructions Recorded NK 06/10/20 - Social History Tobacco Use: cigarettes Drug Use: heroin Vital Signs Temp Pulse Resp BP Pulse Ox 98.3 F 63 18 106/57 L 98 07/16/20 14:54 07/16/20 14:54 07/16/20 14:54 07/16/20 14:54 07/16/20 14:54 Oxygen Delivery Method Room Air Weight: 72.2 kg Body Mass Index (BMI) 23.5 Microbiology Past 72 Hours 07/15/20 14:30 Respiratory Panel (PCR) - Final Mucosa - Nasopharyngeal Laboratory Tests Past 24 Hrs 07/15/20 07/16/20 07/16/20 14:30 06:35 06:35 WBC 14.1 H RBC 4.06 L Hgb 10.8 L Hct 35.3 L MCV 86.9 MCH 26.6 L MCHC 30.6 L RDW Std Deviation 43.7 RDW Coeff of Saul 13.7 Plt Count 170 MPV 9.4 Immature Gran % (Auto) 0.900 Neut % (Auto) 62.8 Lymph % (Auto) 26.2 [place] % (Auto) 8.4 Eos % (Auto) 1.1 Baso % (Auto) 0.6 Absolute Neuts (auto) 8.9 H Absolute Lymphs (auto) 3.69 Nucleated RBC % 0 Sodium 132 L Potassium 4.5 Chloride 101 Carbon Dioxide 28.0 Anion Gap 3 L BUN 11 Creatinine 0.95 Estim Creat Clear Calc 107.50 Est GFR (MDRD) Af Amer 115 Est GFR (MDRD) Non-Af 95 BUN/Creatinine Ratio 11.6 Glucose 111 H Calcium 8.8 Total Bilirubin 0.40 AST 20 ALT 14 L Alkaline Phosphatase 128 H Total Protein 8.0 Albumin 1.9 L Globulin 6.1 H Albumin/Globulin Ratio 0.3 L Procalcitonin COVID-19 (ELIANA) Not Detected MRSA (PCR) 07/16/20 07/16/20 06:35 12:30 WBC RBC Hgb Hct MCV MCH MCHC RDW Std Deviation RDW Coeff of Saul Plt Count MPV Immature Gran % (Auto) Neut % (Auto) Lymph % (Auto) [place] % (Auto) Eos % (Auto) Baso % (Auto) Absolute Neuts (auto) Absolute Lymphs (auto) Nucleated RBC % Sodium Potassium Chloride Carbon Dioxide Anion Gap BUN Creatinine Estim Creat Clear Calc Est GFR (MDRD) Af Amer Est GFR (MDRD) Non-Af BUN/Creatinine Ratio Glucose Calcium Total Bilirubin AST ALT Alkaline Phosphatase Total Protein Albumin Globulin Albumin/Globulin Ratio Procalcitonin 0.32 H COVID-19 (ELIANA) MRSA (PCR) Pending - Other Studies Radiology: [] reviewed Other Studies: [] Route of nutrition/ use of supplements: [] Nutritional Intake: [] IV Site: [] Benson Catheter: [] - Physical Exam General: Alert, Oriented x3, Cooperative, No apparent distress HEENT: Atraumatic, PERRLA, EOMI Neck: Supple, No Nodes Lungs: Clear to auscultation, Normal air movement Cardiovascular: Regular rate, Regular Rhythm Abdomen: Soft, Non Tender, Non-Distended Extremities: No edema Skin: No rashes IV Site: Peripheral, without redness Musculoskeletal: No Tenderness to Palpation of Joints or Extremities Neurological: Cranial nerves II-XII grossly intact - Assessment/Plan Antibiotics: [] Assessment/Plan: [] Active and Suspected Problems Acute opioid withdrawal (Acute) fever with IVDU, h/o hep C - check hiv, hep C viral load, hep B. Bcx neg so far. On empiric vanc/cefepime. Covid (+) 06/29, but now asymptomatic except for fever. Echo now showing possible tricuspid veg. He consents to hiv test. Repeat bcx x1 today, cont abx. Will follow, thank you
[2020-07-16 16:20] LABS: M R Staph aureus DNA By PCR Negative (Negative); Probe Check PASS; Specimen Processing Control PASS
[2020-07-16 19:50] VITALS: BP 112/68; PULSE 101; RESP 18; TEMP 38.6; O2SAT 96
[2020-07-16] MEDS: 0.9% Saline Lock 10 ML Syringe IV (19:57)
[2020-07-16] MEDS: Ondansetron 8 MG Tablet PO (19:57)
[2020-07-16 22:18] VITALS: TEMP 37.6
[2020-07-17 01:53] VITALS: BP 105/62; PULSE 69; RESP 16; TEMP 38.1; O2SAT 97
[2020-07-17] MEDS: Dicyclomine 10 MG Capsule 20 MG PO (01:53)
[2020-07-17] MEDS: Gabapentin 300 MG Capsule PO ×2 (01:54→11:02)
[2020-07-17] MEDS: Acetaminophen 500 MG Tablet PO ×2 (01:54→11:00)
[2020-07-17] MEDS: Methocarbamol 750 MG Tablet 1500 MG PO ×2 (01:54→11:01)
[2020-07-17 05:31] VITALS: TEMP 37.4
[2020-07-17 08:15] VITALS: BP 102/62; PULSE 69; RESP 18; TEMP 37.1; O2SAT 94
[2020-07-17] MEDS: Vancomycin IV 1,000 MG/200 ML BAG 200 MG IV (08:20)
--- NOTE | 2020-07-17 09:33 | CASEMGMT ---
Tertiary facilities in-network with patient's insurance: [facility], [facility], [facility], [facility], , [place].
[2020-07-17 10:33] LABS: HIV - WCH Non-Reactive (Nonreactive); Hepatitis B Surface Antigen Non-Reactive (Nonreactive)
--- NOTE | 2020-07-17 13:40 | DS.PCM_ITS ---
Discharge Date and Diagnosis - Problem List Patient Problems: Active and Suspected Problems Fever (Acute) Acute opioid withdrawal (Acute) Date of Admission: 07/13/20 Date of Discharge: 07/17/20 - Primary Discharge Diagnosis Acute Problems: Active Problems Fever (Acute) Acute opioid withdrawal (Acute) Acute/subacute tricuspid valvular endocarditis - Secondary Discharge Diagnosis Chronic Problems: Chronic Problems Polysubstance abuse (Chronic) Hospital Course and Treatment Summary of Care Provided: This 35-year-old with history of chronic hepatitis C with hep C antibody positive on 11/23/2019 was admitted with acute opioid withdrawal symptoms. During hospital stay, patient was found febrile, 101 point Fahrenheit on second day, highest 102.7 Fahrenheit on third day of hospital stay. 1. Fever most likely secondary to infective endocarditis/tricuspid valvular apparatus vegetation: COVID-19 test on 07/14/20 and 07/15/2020 were negative. Blood cultures x2 on 07/15 are negative for 48 hours. Repeat blood culture on 07/16 pending. Respiratory panel negative. Empirically started on IV vancomycin and Zosyn. ID consult reviewed. Chest x-ray PA and lateral ordered. UA LE 25, WBC 0-5 cells. Patient denies any lower urinary tract symptoms. Leukocytosis trending down. 2D echo was done and reported as below. Interpretation Summary Left ventricular systolic function is normal. The estimated ejection fraction is 55 %. Borderline to mildly enlarged left atrium. Mild diffuse mitral valve thickening. Trivial mitral valve insufficiency. 2D echocardiographic images obtained demonstrate a vague mobile echodensity (approximately 0.5 cm x 1.0 cm) associated with the tricuspid valve chordae tendonae with a differential diagnosis including a vegetation. Trivial pulmonic valve insufficiency. Right ventricular systolic pressure estimated to be 32 mmHg. No evidence for diastolic dysfunction. Discussed with the procurement director and ID. They agree for transfer to tertiary care to be evaluated by cardiac surgeon for tricuspid valvular vegetation. Continue IV antibiotic. MRSA nasal screen negative. HIV 1 and 2 antibody non reactive. HBV surface antigen nonreactive. HBV core antibody and HCV RNA quantitative are pending. I talked to the tape transferrer to [facility] and patient accepted by hospitalist Dr. Elijah CAI. 2. Acute opioid withdrawal, slowly improving Urine tox positive for opiates, amphetamines, methamphetamines, cannabinoids Patient continues to require medication and monitoring for withdrawal based on regular assessment and remains appropriate for ASAM level 4.0 Continue on buprenorphine taper 2. Hyponatremia, remains about the same, chronic 3 nicotine dependence, advised to quit, continue on replacement 4 polysubstance use, advised to quit 5 DVT prophylaxis with early ambulation Patient is being transferred to [facility] pending bed availadela rojas. Transfer papers signed. Total time of the visit including total time spent in counseling or coordination of care, (more than 50% of the total time, spent in obtaining medical information from nurses and other ancillary care providers), discussion with consultants ID and cardiology, discussion with transfer line coordinators, review of labs and imaging is 30 minutes. Patient Problems: Active and Suspected Problems Fever (Acute) Acute opioid withdrawal (Acute) Objective: Fever is controlled on IV antibiotic, T-max 100.6 about 2 AM today. Discussed with ID and procurement director prefer transfer to tertiary care center for tricuspid valvular apparatus vegetation/infective endocarditis. Physical exam General: Alert, Oriented x3, Cooperative HEENT: Atraumatic, PERRLA, EOMI, Normocephalic Oral: No Gingival or Mucosal Lesions/ Ulcerations Neck: Supple, No JVD, Negative Carotid Bruits Lungs: Air entry diminished in bilateral lung bases. No crepitation/rhonchi Cardiovascular: Regular rate, Regular Rhythm, Normal S1, Normal S2, No murmurs Abdomen: Bowel Sounds Present, Soft, Non Tender, Non-Distended : No renal angle tenderness. No suprapubic tenderness. Extremities: No edema, Capillary Refill Less than 3 Seconds Skin: No rashes, No breakdown. Bilateral antecubital chronic thrombophlebitis Musculoskeletal: No Tenderness to Palpation of Joints or Extremities Neurological: Cranial nerves II-XII grossly intact, Deep Tendon Reflexes 2+/4 and Symmetrical, Neuro grossly intact Psych/Mental Status: Normal Affect, Appropriate. - Physical Exam Vitals/I&O's: Vital Signs Temp Pulse Resp BP Pulse Ox 98.7 F 69 18 102/62 94 07/17/20 08:15 07/17/20 08:15 07/17/20 08:15 07/17/20 08:15 07/17/20 08:15 Oxygen Delivery Method Room Air Weight: 159 lb 2.78 oz Body Mass Index (BMI) 23.5 Intake and Output for Last 24 Hours 07/15/20 07/16/20 07/17/20 23:59 23:59 23:59 Intake Total 960 / 960 0 / 2500 1849 Balance 960 / 960 2049 / 2499 Microbiology Past 72 Hours 07/15/20 14:07 Blood Culture (Wb) - Anticubital Left Blood Culture - Preliminary No growth in 48 hours. 07/15/20 14:07 Blood Culture (Wb) - Anticubital Right Blood Culture - Preliminary No growth in 48 hours. 07/15/20 14:30 Mucosa - Nasopharyngeal Respiratory Panel (PCR) - Final Laboratory Results 07/16/20 12:30: MRSA (PCR) Negative 07/16/20 16:58: Hep B Core Total Ab Pending, HCV RNA Quant (PCR) Pending 07/16/20 16:58: Hep Bs Antigen Non-Reactive, HIV 1&2 Antibody Non-Reactive Current Medications Acetaminophen (Acetaminophen 500 Mg Tablet) 500 mg PO Q4H PRN PRN PRN Reason: Temp > 100.4 F Last Admin: 07/17/20 11:00 Dose: 500 mg Documented by: Clonidine (Clonidine Hcl 0.1 Mg Tablet) 0.1 mg PO Q8H PRN PRN PRN Reason: RESTLESSNESS Last Admin: 07/15/20 20:39 Dose: 0.1 mg Documented by: Dicyclomine HCl (Dicyclomine 10 Mg Capsule) 20 mg PO Q6H PRN PRN PRN Reason: Abdominal Discomfort Last Admin: 07/17/20 01:53 Dose: 20 mg Documented by: Gabapentin (Gabapentin 300 Mg Capsule) 300 mg PO Q8H PRN PRN PRN Reason: moderate to severe anxiety Last Admin: 07/17/20 11:02 Dose: 300 mg Documented by: Hydroxyzine Pamoate (Hydroxyzine Shelia 25 Mg Capsule) 50 mg PO Q6H PRN PRN PRN Reason: mild anxiety Last Admin: 07/16/20 19:57 Dose: 50 mg Documented by: Vancomycin IV Pharmacy to Dose (1 ea/ Sodium Chloride) 500 mls @ 250 mls/hr IV DAILY PRN; Protocol PRN Reason: RX TO DOSE Cefepime HCl 2 gm/ Sodium (Chloride) 100 mls @ 200 mls/hr IV Q8 ANGEL LUIS Last Admin: 07/17/20 13:24 Dose: 200 mls/hr Documented by: Vancomycin HCl (Vancomycin) 1,000 mg in 200 mls @ 200 mls/hr IV Q12H ANGEL LUIS Last Infusion: 07/17/20 09:20 Dose: Infused Documented by: Loperamide HCl (Loperamide 2 Mg Capsule) 2 mg PO Q4H PRN PRN PRN Reason: LOOSE STOOLS Methocarbamol (Methocarbamol 750 Mg Tablet) 1,500 mg PO Q6H PRN PRN PRN Reason: MUSCLE SPASM Last Admin: 07/17/20 11:01 Dose: 1,500 mg Documented by: Nicotine (Nicotine 21 Mg Patch) 21 mg TRANSDERM. DAILY ANGEL LUIS Last Admin: 07/17/20 09:30 Dose: 21 mg Documented by: Nutritional Formula (Lactose Free) (Ensure Enlive 120 Ml Liquid) 120 ml PO 4X/DAY ANGEL LUIS Last Admin: 07/17/20 13:24 Dose: 120 ml Documented by: Ondansetron HCl (Ondansetron 8 Mg Tablet) 8 mg PO Q8H PRN PRN PRN Reason: NAUSEA Last Admin: 07/16/20 19:57 Dose: 8 mg Documented by: Sodium Chloride (0.9% Saline Lock 10 Ml Syringe) 10 - 40 ml IV UD PRN PRN Reason: SALINE FLUSH Last Admin: 07/16/20 19:57 Dose: 10 ml Documented by: Trazodone HCl (Trazodone 100 Mg Tablet) 100 mg PO QHS PRN PRN PRN Reason: INSOMNIA Home Medications: Medications to take at Discharge NK 06/10/20 Primary Care Physician: Care Physician,No Primary [Primary Care Provider] - Medical Necessity - Tobacco Use Smoking Status: Current every day smoker Tobacco Use: Cigarettes Meaningful Use Info Meaningful Use Diagnoses (Choose all that apply): None applicable Inpatient E&M: 13628 [facility] Hosp
[2020-07-17 13:48] VITALS: BP 106/61; PULSE 70; RESP 18; TEMP 37.3; O2SAT 96
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
--- NOTE | 2020-07-17 15:55 | PCM.PN.ID ---
Patient Problems: Active and Suspected Problems Fever (Acute) Acute opioid withdrawal (Acute) Subjective: Feeling ok, but still fever, aches all over. Feels like he is withdrawing. - Physical Exam Vitals/I&O's: Vital Signs Temp Pulse Resp BP Pulse Ox 99.1 F 70 18 106/61 96 07/17/20 13:48 07/17/20 13:48 07/17/20 13:48 07/17/20 13:48 07/17/20 13:48 Oxygen Delivery Method Room Air Weight: 72.2 kg Body Mass Index (BMI) 23.5 Intake and Output for Last 24 Hours 07/15/20 07/16/20 07/17/20 23:59 23:59 23:59 Intake Total 960 / 960 2049 Balance 960 / 960 2049 General: Alert, Cooperative, No apparent distress Lungs: Clear to auscultation, Normal air movement Cardiovascular: Regular rate, Regular Rhythm Abdomen: Soft, Non Tender, Non-Distended Skin: No rashes Microbiology Past 72 Hours 07/15/20 14:07 Blood Culture (Wb) - Anticubital Left Blood Culture - Preliminary No growth in 48 hours. 07/15/20 14:07 Blood Culture (Wb) - Anticubital Right Blood Culture - Preliminary No growth in 48 hours. 07/15/20 14:30 Mucosa - Nasopharyngeal Respiratory Panel (PCR) - Final Laboratory Results 07/16/20 12:30: MRSA (PCR) Negative 07/16/20 16:58: Hep B Core Total Ab Pending, HCV RNA Quant (PCR) Pending 07/16/20 16:58: Hep Bs Antigen Non-Reactive, HIV 1&2 Antibody Non-Reactive Current Medications Acetaminophen (Acetaminophen 500 Mg Tablet) 500 mg PO Q4H PRN PRN PRN Reason: Temp > 100.4 F Last Admin: 07/17/20 11:00 Dose: 500 mg Documented by: Clonidine (Clonidine Hcl 0.1 Mg Tablet) 0.1 mg PO Q8H PRN PRN PRN Reason: RESTLESSNESS Last Admin: 07/15/20 20:39 Dose: 0.1 mg Documented by: Dicyclomine HCl (Dicyclomine 10 Mg Capsule) 20 mg PO Q6H PRN PRN PRN Reason: Abdominal Discomfort Last Admin: 07/17/20 01:53 Dose: 20 mg Documented by: Gabapentin (Gabapentin 300 Mg Capsule) 300 mg PO Q8H PRN PRN PRN Reason: moderate to severe anxiety Last Admin: 07/17/20 11:02 Dose: 300 mg Documented by: Hydroxyzine Pamoate (Hydroxyzine Shelia 25 Mg Capsule) 50 mg PO Q6H PRN PRN PRN Reason: mild anxiety Last Admin: 07/16/20 19:57 Dose: 50 mg Documented by: Vancomycin IV Pharmacy to Dose (1 ea/ Sodium Chloride) 500 mls @ 250 mls/hr IV DAILY PRN; Protocol PRN Reason: RX TO DOSE Cefepime HCl 2 gm/ Sodium (Chloride) 100 mls @ 200 mls/hr IV Q8 [facility] Last Infusion: 07/17/20 13:54 Dose: Infused Documented by: Vancomycin HCl (Vancomycin) 1,000 mg in 200 mls @ 200 mls/hr IV Q12H [facility] Last Infusion: 07/17/20 09:20 Dose: Infused Documented by: Loperamide HCl (Loperamide 2 Mg Capsule) 2 mg PO Q4H PRN PRN PRN Reason: LOOSE STOOLS Methocarbamol (Methocarbamol 750 Mg Tablet) 1,500 mg PO Q6H PRN PRN PRN Reason: MUSCLE SPASM Last Admin: 07/17/20 11:01 Dose: 1,500 mg Documented by: Nicotine (Nicotine 21 Mg Patch) 21 mg TRANSDERM. DAILY [facility] Last Admin: 07/17/20 09:30 Dose: 21 mg Documented by: Nutritional Formula (Lactose Free) (Ensure Enlive 120 Ml Liquid) 120 ml PO 4X/DAY [facility] Last Admin: 07/17/20 13:24 Dose: 120 ml Documented by: Ondansetron HCl (Ondansetron 8 Mg Tablet) 8 mg PO Q8H PRN PRN PRN Reason: NAUSEA Last Admin: 07/16/20 19:57 Dose: 8 mg Documented by: Sodium Chloride (0.9% Saline Lock 10 Ml Syringe) 10 - 40 ml IV UD PRN PRN Reason: SALINE FLUSH Last Admin: 07/16/20 19:57 Dose: 10 ml Documented by: Trazodone HCl (Trazodone 100 Mg Tablet) 100 mg PO QHS PRN PRN PRN Reason: INSOMNIA Medical Necessity - Tobacco Use Smoking Status: Current every day smoker Tobacco Use: Cigarettes Route of nutrition/ use of supplements: [] Nutritional Intake: [] IV Site: [] Benson Catheter: [] - Assessment/Plan Antibiotics: [] Assessment/Plan: [] Active and Suspected Problems Acute opioid withdrawal (Acute) fever, endocarditis with IVDU, h/o hep C - checking hiv, hep C viral load, hep B. Bcx neg so far. On empiric vanc/cefepime. Covid (+) 06/29, but now asymptomatic except for fever. Echo now showing possible tricuspid veg. He consents to hiv test. Discussed with cardiology, transfer planned for surg eval. Will follow
--- NOTE | 2020-07-17 17:23 | NURSING ---
Per Dr. Garcia, Patient is ok to go with BLS team for transport.
--- NOTE | 2020-07-17 18:16 | NURSING ---
@ 1810 pt transported to [facility] by [facility] for continuing treatment of endocarditis, continuing fevers despite antb iv-see transfer flow sheet for vitals-report given to kathi pt going to [id number]
[2020-07-19 03:07] LABS: HCV Quant. RNA PCR HCV Not Detected IU/mL (.)
[2020-07-19 10:06] LABS: Hepatitis B Core Ab Total Positive (Negative)
== END 2020-07-17 18:10 | disposition short-term general hospital (02) | DRG 193 ==
LOC: ED 18:31 → MS3 19:05
PROVIDERS: Internal Medicine; Internal Medicine Infectious Disease; Admitting Provider Hospitalist; Emergency Provider Emergency Medicine; Visit Provider Internal Medicine
DX: I33.0 Acute and subacute infective endocarditis (principal); F11.23 Opioid dependence with withdrawal; F17.210 Nicotine dependence, cigarettes, uncomplicated; E87.1 Hypo-osmolality and hyponatremia; D72.829 Elevated white blood cell count, unspecified; F15.90 Other stimulant use, unspecified, uncomplicated; F12.90 Cannabis use, unspecified, uncomplicated; B18.2 Chronic viral hepatitis C
CPT/HCPCS: 36415; 71046; 80053; 80307; 80320; 81001; 84145; 85025; 86703; 86704; 87040; 87340; 87522; 87633; 87635; 87641; 93306; 97802; 97803; 99281; 99285; 99406; J7040; 90686; A4216; G0480; U0003

== ENCOUNTER 2020-09-03 02:33 | Emergency (ER) | payer MEDICAID, SELFPAY ==
[2020-07-14 12:25] VITALS: BMI 23.5
[2020-09-03 02:34] VITALS: BP 146/97; PULSE 109; RESP 16; TEMP 36.2; O2SAT 96; BMI 25.2
--- NOTE | 2020-09-03 02:39 | ED.DCSUM_ITS ---
History of Present Illness Chief Complaint: Dental Onset: Today Narrative: 35 year-old male with no past medical history presents with concern for fractured tooth on the left lower jaw. States that he has been having increasing pain and concern for infection. Patient is a current smoker. Sejal ent does not have a current dentist. Denies any fever, chills, vision change, headache, neck pain. Past Medical History - Allergies and Home Meds Allergies/Adverse Reactions: Allergies Penicillins [PCN] Allergy (Verified 07/13/20 16:54) Swelling Sulfa (Sulfonamide Antibiotics) Allergy (Verified 07/13/20 16:54) Swelling Primary Care Physician: Care Physician,No Primary [Primary Care Provider] - Past Medical History: None Surgical History: noncontributory Smoking Status: Current every day smoker Alcohol: None Drugs: None - Family History Maternal Family History: Reports: No pertinent history Paternal Family History: Reports: No pertinent history Review of Systems General: Denies: Chills, Fever, Sweats Eyes: Denies: Visual changes - bilaterally, Diplopia ENT: Reports: - - Dental pain. Denies: Rhinorrhea, Sore throat Cardiovascular: Denies: Chest pain, Palpitations Respiratory: Denies: Dyspnea, Cough, Dyspnea on exertion Gastrointestinal: Denies: Abdominal pain, Nausea, Vomiting, Diarrhea, Melena, Hematochezia Genitourinary: Denies: Dysuria, Hematuria, Frequency Musculoskeletal: Denies: Back pain, Extremity Pain Skin: Denies: Rash, Wounds Neurological: Denies: Headache, Weakness, Numbness Physical Exam Vital Signs/Narrative: Vital Signs Temp Pulse Resp BP Pulse Ox 09/03/20 02:34 97.2 F L 109 H 16 146/97 H 96 General: Well nourished, Well developed, No Acute Distress Head: Normocephalic, Atraumatic Eyes: Perrl, EOMI ENT: Moist mucous membranes, No rhinorrhea, - - Poor dentition. Fracture of the left first premolar. No evidence of periapical abscess. Neck: Supple, Nontender Cardiovascular: Regular rate, Regular rhythm, No murmurs Respiratory: No distress, CTA bilaterally, Chest nontender Abdomen: Soft, Nontender, Nondistended, Normal bowel sounds Back: Nontender, Normal Inspection Extremities: Nontender, No edema Skin: Normal color, No rash Neurological: Alert, Oriented x3, Cranial nerves II-XII grossly intact, Normal Strength, Normal Sensation Psychological: Normal affect, Normal Mood Diagnostic/Tx/Re-eval - Medical Decision Making Appears well and nontoxic. Afebrile. No evidence of abscess. Patient will be given intramuscular Toradol and clindamycin. Given naproxen and clindamycin for home. Given dental follow-up. Discharged home in stable condition. Impression: 1. Dental pain ED Disposition - Plan for ED Patient: Disposition: Home or Assisted Living Instructions: ED Dental Pain Prescriptions: Clindamycin [Cleocin] 300 mg PO 4X/DAY #80 cap Prescription Printed Naproxen [Naprosyn] 500 mg PO BID #14 tab Prescription Printed
[2020-09-03] MEDS: Clindamycin HCl 150 MG Capsule 300 MG PO (02:44)
[2020-09-03] MEDS: Ketorolac 15 MG/ML Vial IM (02:44)
[2020-09-03 03:10] VITALS: PULSE 98; RESP 16; O2SAT 99
== END 2020-09-03 03:11 | disposition home or self-care (01) ==
LOC: ED 02:57
PROVIDERS: Emergency Provider Emergency Medicine
DX: K08.89 Other specified disorders of teeth and supporting structures (principal); F17.200 Nicotine dependence, unspecified, uncomplicated
CPT/HCPCS: 96372; 99283

== ENCOUNTER 2021-06-30 08:06 | Emergency (ER) | payer MEDICAID, SELFPAY ==
[2021-06-30 08:07] VITALS: BP 132/86; PULSE 113; RESP 17; TEMP 36.4; O2SAT 98; BMI 26.4
--- NOTE | 2021-06-30 08:19 | ED.VIS.DENTA ---
HPI History of Present Illness Chief Complaint: Dental Informant: patient Narrative Narrative: Patient states he had part of a tooth break off spontaneously about a week ago. Is getting more sore. This is in his left upper posterior jaw. He states he has a lot of other teeth that need some care but they are not really hurting him. No fevers chills sweats. No trouble swallowing no syncope. No rash. No joint pain. PFSH PFSH Home Medications clindamycin HCl [Cleocin HCl] 300 mg PO Q6H #40 cap 06/30/21 [Rx Last Taken Unknown] naproxen 500 mg PO BID #20 tab 06/30/21 [Rx Last Taken Unknown] Allergy/AdvReac Type Severity Reaction Status Date / Time Penicillins [PCN] Allergy Swelling Verified 06/30/21 08:06 Sulfa (Sulfonamide Allergy Swelling Verified 06/30/21 08:06 Antibiotics) Social History Smoking Status: Current every day smoker ROS ROS ED Constitutional Constitutional ED: Denies chills or fever(s) ENT ENT ED: Reports other Details: Dental pain as in history of present illness. ; Denies ear pain, rhinorrhea or sore throat Cardiovascular Cardiovascular: Denies chest pain or palpitations Gastrointestinal Gastrointestinal: Denies nausea or vomiting Musculoskeletal Musculoskeletal: Denies arthralgias Integumentary Denies rash Allergic/Immunologic Allergic/Immunologic ED: Reports other Details: He has soreness in his mouth but no swelling. ; Denies mouth swelling EXAM Physical Exam Const Vital Signs: 06/30/21 08:07 Temperature 97.5 F L Temperature Source Temporal Pulse Rate 113 H Respiratory Rate 17 Blood Pressure 132/86 H Blood Pressure Mean 101 Pulse Ox 98 Oxygen Delivery Method Room Air Patient is sitting comfortably in bed. He looks nontoxic. Positive well nourished and well developed General Appearance ED: well developed and NAD HEENT HEENT Narrative: No facial or external swelling. Tongue is normal. Voice and handling secretions are normal. No sign of Ludewig's angina. He has multiple teeth that have erosions but no abscess or swelling that seen. He does have what looks to be more an acute fracture in the area in question. No bleeding. No drainage. There is minimal erythema of the gums around that area but no swelling. Negative for trauma Neck no lymphadenopathy and supple General: Negative for anterior neck swelling or tenderness Lymph Lymphatic: no lymphadenopathy noted Resp normal respiratory effort and clear to auscultation bilaterally Cardio regular rate and regular rhythm Neuro Sensorium / Orientation: alert Skin no rashes or lesions noted MDM MDM MDM Narrative Medical decision making narrative: Patient does have a history of polysubstance abuse. However, he is not asking for any narcotic. He is just trying to get relief. He is also asking for referral to dental center. I will give him antibiotics. We will give him Naprosyn. Discharge Plan Triage Chief Complaint: Dental ED Provider: Elijah Jeff Dx/Rx/DC Orders Clinical Impression: Pain, dental Instructions: ED Dental Pain Prescriptions: New clindamycin HCl [Cleocin HCl] 300 MG capsule 300 mg PO Q6H Qty: 40 RF: 0 naproxen 500 MG tablet 500 mg PO BID Qty: 20 RF: 0 Primary Care Provider: Care Physician,No Primary Referrals: Carly Lobato [NON-STAFF] - As soon as possible Care Physician,No Primary [Primary Care Provider] - Disposition Disposition: Home, Self Care
[2021-06-30] MEDS: Naproxen 375 MG Tablet 500 MG PO (08:26)
== END 2021-06-30 08:26 | disposition home or self-care (01) ==
LOC: ED 08:20
PROVIDERS: Emergency Provider Emergency Medicine
DX: K08.89 Other specified disorders of teeth and supporting structures (principal); F17.200 Nicotine dependence, unspecified, uncomplicated
CPT/HCPCS: 99283

== ENCOUNTER 2021-09-15 04:43 | Emergency (ER) | payer MEDICAID, SELFPAY ==
[2021-09-15 04:45] VITALS: TEMP 36.2; BMI 26.6
[2021-09-15 04:50] VITALS: BP 126/85; PULSE 102; RESP 18; O2SAT 100
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
== END 2021-09-15 07:18 | disposition home or self-care (01) ==
PROVIDERS: Emergency Provider Emergency Medicine
DX: S80.02XA Contusion of left knee, initial encounter (principal); S09.90XA Unspecified injury of head, initial encounter; F17.210 Nicotine dependence, cigarettes, uncomplicated; V19.40XA Pedal cycle driver injured in collision with unspecified motor vehicles in traffic accident, initial encounter
CPT/HCPCS: 70450; 72125; 72170; 73080; 73564; 99284

== ENCOUNTER 2022-03-31 19:20 | Emergency (ER) | payer MEDICAID, SELFPAY ==
[2022-03-31 19:21] VITALS: BP 155/102; PULSE 120; RESP 25; TEMP 37.3; O2SAT 100; BMI 26.0
[2022-03-31 19:25] VITALS: PULSE 115; RESP 16; O2SAT 100
--- NOTE | 2022-03-31 19:30 | RAD_ITS ---
STUDY: X-RAY CHEST REASON FOR EXAM: Male, 36 years old. CHEST PAIN chest pain TECHNIQUE: XR Chest 1 View COMPARISON: None FINDINGS: There is no demonstrated pleural abnormality. Normal size heart. Normal mediastinum and tg. Normal visualized pulmonary arteries. Normal visualized aortic arch and descending thoracic aorta. Normal visualized thoracic spine. Normal visualized ribs, clavicles, and shoulders. There is no demonstrated abnormality of the visualized soft tissue structures of the upper abdomen. RAD/Chest 1 View (Portable) IMPRESSION: There are no acute findings. Electronically Signed: Vinicio Belle MD at 19:48 EDT ,
--- NOTE | 2022-03-31 19:30 | EKG12_ITS ---
Test Reason : CP Blood Pressure : / mmHG Vent. Rate : 114 BPM Atrial Rate : 114 BPM P-R Int : 128 ms QRS Dur : 082 ms QT Int : 314 ms P-R-T Axes : 080 014 063 degrees QTc Int : 432 ms Sinus tachycardia Otherwise normal ECG Confirmed by LISBETH CHAU, ROM ([id number]), editorial cartoonist BENNY QUIROZ ([id number]) on 04/02/2022 8:16:52 AM Referred By: Confirmed By:ROM BOB MD
--- NOTE | 2022-03-31 19:31 | ED.VIS.CHEST ---
HPI History of Present Illness Chief Complaint: Chest Pain Detail of Chief Complaint: Chest pain that started about 30 minutes ago Informant: patient Onset/Context/Timing Current Severity: 5 Narrative Narrative: Patient presents to the emergency department complaint of chest pain that started 30 minutes ago. Patient states he was playing basketball when he started having sharp pain and got sharper. Patient states pain is worse with deep breath. He denies recent illness. Patient currently in a rehab facility and has been clean from drugs for 2 weeks. Patient had been using heroin and meth. Patient tells me that 2 years ago he was treated for endocarditis but did not complete his antibiotic treatment. He denies history of PE or DVT. Currently rates his pain a 5 out of 10. Prior Similar Symptoms: No PFSH PFSH Medical History (Updated 03/31/22 @ 20:[address] Lee Partida DO) Chronic dental pain Endocarditis Home Medications NK 09/15/21 [History Last Taken Unknown] Allergy/AdvReac Type Severity Reaction Status Date / Time Penicillins [PCN] Allergy Swelling Verified 03/31/22 19:23 Sulfa (Sulfonamide Allergy Swelling Verified 03/31/22 19:23 Antibiotics) Social History Smoking Status: Current every day smoker tobacco type: cigarettes ROS ROS ED Review of Systems ROS Unobtainable: other Constitutional Constitutional ED: Reports lethargy; Denies chills, fever(s), sweats or weight loss Eyes Eyes: Denies blurry vision, change in vision or diplopia ENT ENT ED: Denies rhinorrhea or sore throat Cardiovascular Cardiovascular: Reports chest pain and racing heartbeat; Denies orthopnea Respiratory/Chest Respiratory/Chest: Reports dyspnea and dyspnea on exertion; Denies cough, orthopnea or sputum Gastrointestinal Gastrointestinal: Denies abdominal pain, diarrhea, nausea or vomiting Genitourinary Genitourinary ED: Denies dysuria, hematuria or urinary frequency Musculoskeletal Musculoskeletal: Denies arthralgias, back pain, myalgias or neck pain Integumentary Denies abscess, Abrasions or rash Neurologic Neurologic: Denies headache(s) or weakness Psychiatric Psychiatric: Denies anxiety, depression or suicidal thoughts Endocrine Endocrinology: Denies polydipsia, polyphagia or polyuria Hematologic/Lymphatic Hematologic/Lymphatic: Denies easy bleeding, easy bruising or lymphadenopathy Allergic/Immunologic Allergic/Immunologic ED: Denies mouth swelling, tongue swelling or urticaria EXAM Physical Exam Const Vital Signs: 03/31/22 19:21 03/31/22 19:24 03/31/22 19:25 Temperature 99.1 F Temperature Source Temporal Pulse Rate 120 H 115 H Respiratory Rate 25 H 16 Respiratory Effort Normal Non-Labored Blood Pressure 155/102 H Blood Pressure Mean 119 Pulse Ox 100 100 Oxygen Delivery Method Room Air Room Air 03/31/22 19:38 Temperature Temperature Source Pulse Rate Respiratory Rate Respiratory Effort Blood Pressure Blood Pressure Mean Pulse Ox Oxygen Delivery Method Room Air Positive well nourished and well developed General Appearance ED: well developed and NAD HEENT Reports TM's clear and moist mucous membranes normocephalic and atraumatic; Negative for trauma or tenderness Tympanic Membrane ED: Yes TM's clear Eyes PERRL and EOMs intact bilaterally General Eye ED: Negative for pale conjunctiva or scleral icterus Neck no lymphadenopathy, supple and no JVD General: Negative for tenderness Chest Wall Chest Narrative: Patient has some tenderness palpation over left anterior chest wall that seems to reproduce his pain. Chest: Negative for tenderness Resp normal respiratory effort and clear to auscultation bilaterally Effort and Inspection: Negative for respiratory distress or pain with movement Auscultation: Negative for rhonchi, wheezes or diminished lung sounds Cardio regular rate, regular rhythm, S1 normal heart sound, S2 normal heart sound and no murmurs Peripheral Pulses: pulses 2+ throughout GI normal to inspection, nondistended, normoactive bowel sounds, soft to palpation, non-tender, non-distended and no masses Back/Spine no CVA tenderness and no thoracic nor lumbar tenderness Extremity normal to inspection General Extremety ED: Negative for edema General Extremity: Negative for edema Neuro oriented x3, CN's II-XII intact bilaterally, no sensory deficits noted and gait normal Sensorium / Orientation: awake, alert, oriented to person, oriented to place and oriented to time Motor Exam: strength 5/5 throughout and strength abnormal Psych mental status grossly normal Skin no rashes or lesions noted and no wounds Heart Score History: Slightly/Non-Suspicious ECG: Normal Age: </= 45 years Risk Factors: No Risk Factors Troponin: </= Normal Limit Score: 0 MDM MDM MDM Narrative Medical decision making narrative: IV line established on arrival. Patient was given Toradol 30 mg IV. Patient had good pain relief with that. Patient does have a slightly elevated white count but comparing prior values states appears to be a chronic finding. Patient also had an elevated D-dimer therefore CT of the chest was obtained which was negative for PE or dissection. Cardiac enzymes were normal. At this point I feel his pain is likely noncardiac as his heart score is 0. I do not feel he is having complication from his endocarditis. I will give him referral for follow-up to cardiology if he continues to experience chest pain or shortness of breath. He is to return if fever or if condition should worsen anyway. Lab Data Attestation: I reviewed the patient's lab results. Labs: Laboratory Results - last 24 hr 03/31/22 03/31/22 03/31/22 19:30 19:30 19:30 WBC 13.9 H RBC 5.35 Hgb 14.7 Hct 45.2 MCV 84.5 MCH 27.5 MCHC 32.5 RDW Std Deviation 44.4 H RDW Coeff of Saul 14.6 Plt Count 464 H MPV 9.2 Immature Gran % (Auto) 0.400 Neut % (Auto) 47.1 Lymph % (Auto) 42.7 H Yancey % (Auto) 6.0 Eos % (Auto) 3.2 Baso % (Auto) 0.6 Absolute Neuts (auto) 6.6 Absolute Lymphs (auto) 5.95 H Nucleated RBC % 0 Differential Comment SCANNED D-Dimer Quant (PE/DVT) 0.66 H* Sodium 139 Potassium 3.7 Chloride 106 Carbon Dioxide 25.0 Anion Gap 8 BUN 15 Creatinine 1.11 Estim Creat Clear Calc 91.12 Est GFR (MDRD) Af Amer 95 Est GFR (MDRD) Non-Af 79 BUN/Creatinine Ratio 13.5 Glucose 103 Calcium 10.3 H Troponin I High Sens < 3 L Radiography Chest X-Ray - ED: 1 View Diagnostic Testing: Clinical Impression(s) from Imaging Studies Chest X-Ray 03/31/22 19:30 IMPRESSION: There are no acute findings. Electronically Signed: Vinicio Belle MD at 19:48 EDT , Chest CTA 03/31/22 19:59 IMPRESSION: No demonstrated pulmonary embolism or arterial dissection. Electronically Signed: Vinicio Belle MD at 20:49 EDT , 1 view chest x-ray obtained interpreted by myself as no acute disease process. Radiology in agreement. EKG Initial EKG: Attestation: I personally reviewed and interpreted this EKG as follows: Comments: Sinus tachycardia with a ventricular rate of 114 bpm with no acute ST segment changes Discharge Plan Triage Chief Complaint: Chest Pain ED Provider: Lee Partida Dx/Rx/DC Orders Clinical Impression: Chest pain Instructions: ED Chest Pain, Uncertain Cause Prescriptions: No Action NK Primary Care Provider: Care Physician,No Primary Referrals: Glenn Chowdhury MD [STAFF PHYSICIAN] - 3-5 Days Care Physician,No Primary [Primary Care Provider] - Disposition Disposition: Home, Self Care
[2022-03-31] MEDS: Ketorolac 30 MG/ML Syringe IV (19:37)
[2022-03-31] MEDS: 0.9% Normal Saline 1,000 ML 150 ML IV (19:37)
[2022-03-31 19:38] LABS: Absolute Lymphocyte Count 5.95 X10^3/uL (0.83-4.51); Absolute Neutrophil Count 6.6 X10^3/uL (2.0-7.7); Basophil# 0.08 X10^3/uL; Basophil% 0.6 % (0-1); Eosinophil# 0.44 X10^3/uL; Eosinophils% 3.2 % (0-5); Hematocrit 45.2 % (40-54); Hemoglobin 14.7 g/dL (13.0-16.5); Lymphocyte # 5.95 X10^3/ul (0.83-4.51); Lymphocyte % 42.7 % (19-41); Mean Corp Hgb Conc 32.5 g/dL (32-36); Mean Corpuscular Hgb 27.5 pg (27.0-32.0); Mean Corpuscular Volume 84.5 fL (80-94); Mean Platelet Vol. 9.2 fl (6.2-12.0); Monocyte# 0.84 X10^3/uL; NRBC Flagged by Analyzer 0 % (0-5); Neutrophil # 6.56 X10^3/uL (2.7-7.7); Neutrophil % 47.1 % (47-70); POSITIVE DIFFERENTIAL YES; POSITIVE MORPHOLOGY YES; Platelet Count 464 K/mm3 (150-450); RBC Distribution Width CV 14.6 % (11.6-14.6); RBC Distribution Width SD 44.4 fl (35.1-43.9); Red Blood Count 5.35 M/mm3 (4.6-6.2); White Blood Count 13.9 K/mm3 (4.4-11.0)
[2022-03-31 19:41] LABS: Differential Indicated SCAN CRITERIA MET
[2022-03-31 19:53] LABS: D-Dimer Quantitative (DVT/PE) 0.66 FEU/ug/m (0.27-0.49)
--- NOTE | 2022-03-31 19:59 | CT_ITS ---
EXAM: CT ANGIOGRAPHY CHEST WITHOUT AND WITH INTRAVENOUS CONTRAST CLINICAL INDICATION: chest pain TECHNIQUE: Helically acquired angiography images were obtained of the chest without and with intravenous contrast. This CT exam was performed using one or more of the following dose reduction techniques: automated exposure control, adjustment of the mA and/or kV according to patient size, and/or use of iterative reconstruction technique. This report was created using [employer] report generation technology. MIP reconstructed images were created and reviewed. CONTRAST: IV 100mL [id number]-370 RADIATION DOSE: CTDIvol = 13.50 mGy, DLP = 359.40 mGy-cm COMPARISON: None. FINDINGS: PULMONARY ARTERIES: No demonstrated pulmonary embolism or arterial dissection. AORTA: Unremarkable. Normal in caliber. No evidence of dissection. GREAT VESSELS OF AORTIC ARCH: Unremarkable. Normal in caliber. No evidence of dissection. LUNGS AND PLEURAL SPACES: Unremarkable. No mass. No consolidation or edema. No pleural effusion or thickening. No pneumothorax. HEART: Unremarkable. Heart size is normal. No pericardial effusion. No signs of right heart strain, ratio of right ventricle to left ventricle measures less than 1. MEDIASTINUM: Unremarkable. No mediastinal or hilar adenopathy. Esophagus is unremarkable. No hiatal hernia. THYROID: Unremarkable. No thyroid lesions. BONES/JOINTS: Unremarkable. No suspicious lytic or blastic abnormality. CT/CTA Chest W/WO Contrast IMPRESSION: No demonstrated pulmonary embolism or arterial dissection. Electronically Signed: Vinicio Belle MD at 20:49 EDT Reading Location ID and State: [facility] / [place] , Service support ,
[2022-03-31 20:02] LABS: Anion Gap 8 (5-15); BUN 15 mg/dL (7-18); BUN/Creat Ratio 13.5 RATIO (10-20); Calcium,Total 10.3 mg/dL (8.5-10.1); Chloride 106 mmol/L (98-107); Creatinine, Serum 1.11 mg/dL (0.70-1.30); EST Glomerular Filtration Rate 79 mL/min (>60); Est Glom Filt Rate - Afr Amer 95 mL/min (>60); Estimated Creatinine Clearance 91.12 ml/min; Glucose 103 mg/dL (74-106); Potassium 3.7 mmol/L (3.5-5.1); Sodium Level 139 mmol/L (136-145); Troponin-I HS (w/2H Reflex) < 3 pg/mL (3.0-78.0)
[2022-03-31 20:24] LABS: Differential Comment SCANNED
[2022-03-31 20:57] VITALS: BP 123/87; PULSE 101; O2SAT 99
[2022-03-31 21:35] LABS: Reflex Troponin-HS? (from REC) Y
== END 2022-03-31 21:11 | disposition home or self-care (01) ==
PROVIDERS: Emergency Provider Emergency Medicine; Visit Provider Emergency Medicine
DX: R07.9 Chest pain, unspecified (principal); F17.210 Nicotine dependence, cigarettes, uncomplicated
CPT/HCPCS: 71045; 71275; 80048; 84484; 85025; 85379; 93005; 96374; 99284; J7030; Q9967

== ENCOUNTER 2022-07-20 02:19 | Emergency (ER) | payer MEDICAID, SELFPAY ==
[2022-07-20 02:20] VITALS: BP 140/96; PULSE 115; RESP 18; TEMP 36.1; O2SAT 100; BMI 25.9
[2022-07-20] MEDS: Clindamycin HCl 150 MG Capsule 300 MG PO (03:40)
--- NOTE | 2022-07-20 05:02 | EDS_ITS ---
HPI History of Present Illness Chief Complaint: Wound Check Narrative Narrative: Patient is a 37-year-old male with past medical history of opioid abuse and hepatitis C. he states over the last few days he has noticed that his right toe has become swollen and slightly red. He denies any direct trauma to it. He denies any fevers or chills or history of immunosuppression. He states he has been clean for over 30 days and denies ever injecting in his foot. He states he is concerned about an infection based on his symptoms and secondary to this comes in for evaluation [facility] Medical History (Updated 07/20/22 @ 08:[address] 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) Tobacco abuse Home Medications clindamycin HCl 300 mg capsule 300 mg PO 4X/DAY 7 days #28 caps 07/20/22 [Rx Last Taken Unknown] Allergy/AdvReac Type Severity Reaction Status Date / Time Penicillins [PCN] Allergy Swelling Verified 07/20/22 02:19 Sulfa (Sulfonamide Allergy Swelling Verified 07/20/22 02:19 Antibiotics) Social History Smoking Status: Current every day smoker tobacco type: cigarettes ROS ROS ED Constitutional Constitutional ED: Denies chills or fever(s) ENT ENT ED: Denies sore throat Cardiovascular Cardiovascular: Denies chest pain Respiratory/Chest Respiratory/Chest: Denies cough or dyspnea Gastrointestinal Gastrointestinal: Denies abdominal pain, diarrhea, nausea or vomiting Genitourinary Genitourinary ED: Denies dysuria Musculoskeletal Musculoskeletal: Reports other Details: Positive right foot/toe pain Integumentary Reports other Details: Positive right foot/toe redness ; Denies rash Neurologic Neurologic: Denies headache(s) or paresthesias Hematologic/Lymphatic Hematologic/Lymphatic: Denies easy bleeding or easy bruising EXAM Physical Exam Const Vital Signs: 07/20/22 02:20 07/20/22 05:09 Temperature 97 F L Temperature Source Temporal Pulse Rate 115 H 88 Respiratory Rate 18 17 Blood Pressure 140/96 H 117/71 Blood Pressure Mean 110 Pulse Ox 100 98 Oxygen Delivery Method Room Air Positive well nourished and well developed General Appearance ED: well developed Eyes PERRL and EOMs intact bilaterally Neck supple Resp normal respiratory effort and clear to auscultation bilaterally Cardio regular rate and regular rhythm Extremity Extremity Narrative: Right lower extremity is neurovascular intact. No obvious bony deformity or joint effusion noted. No subungual hematoma. There is mild asymmetric erythema and warmth to the right great toe compared to the remainder of the foot. Patient also has soft tissue swelling along the nailbed aspect concerning for paronychia. No lymphangitic streaking or active discharge noted. Neuro oriented x3 and CN's II-XII intact bilaterally Sensorium / Orientation: alert Psych mental status grossly normal Skin Skin Narrative: Soft tissue changes around the right great toe as documented above MDM MDM MDM Narrative Medical decision making narrative: Patient presented to the ER afebrile and he denied any history of immunosuppression or injection in the area which lowers my concern for osteomyelitis. Therefore do not feel the need for labs or imaging studies. Patient was given a digital block as documented below and then underwent incision and drainage of the paronychia. Following this we placed on antibiotics to resolve any persistent infection but as there are no signs of systemic infection is otherwise safe for discharge Patient was given a digital block to the right great toe. The toe was cleaned with chlorhexidine. It was anesthetized using 8 mL of 1% lidocaine without epinephrine in digital block fashion. A #11 blade was used to make a linear incision along the lateral aspect of the nailbed. A moderate amount of blood and purulent material was expressed. Patient tolerated the procedure well without complication. Discharge Plan Triage Chief Complaint: Wound Check ED Provider: Joseph Taylor Dx/Rx/DC Orders Clinical Impression: Paronychia of great toe of right foot, Chronic hepatitis C, History of opioid abuse Instructions: ED Paronychia of the Finger or Toe Prescriptions: New clindamycin HCl 300 mg capsule 300 mg PO 4X/DAY 7 Days Qty: 28 0RF Primary Care Provider: Care Physician,No Primary Referrals: Katlyn Walsh MD [Med Staff - Warehouse Order Picker] - Care Physician,No Primary [Primary Care Provider] - Disposition Disposition: Home, Self Care Discharge Date/Time: 07/20/22 05:10
[2022-07-20 05:09] VITALS: BP 117/71; PULSE 88; RESP 17; O2SAT 98
== END 2022-07-20 05:10 | disposition home or self-care (01) ==
PROVIDERS: Emergency Provider Emergency Medicine; Visit Provider Emergency Medicine
DX: L03.031 Cellulitis of right toe (principal); B18.2 Chronic viral hepatitis C; F17.210 Nicotine dependence, cigarettes, uncomplicated; Z87.898 Personal history of other specified conditions
CPT/HCPCS: 10060; 99283

== ENCOUNTER 2022-11-25 23:03 | Emergency (ER) | payer MEDICAID, SELFPAY ==
[2022-11-25 23:04] VITALS: BP 127/98; PULSE 104; RESP 15; TEMP 36.7; O2SAT 97; BMI 28.8
--- NOTE | 2022-11-25 23:11 | EX.ED.UPPERE ---
HPI History of Present Illness Chief Complaint: Upper Extremity Injury Informant: patient Narrative Narrative: Patient presents with right wrist pain. He states he was shoveling snow several weeks ago. He pulled hard on a heavy load of snow. He felt a strain in his right wrist. He is left-hand dominant. He states now every time he lifts something heavy the wrist feels like it has a muscle strain in it. It is not popping or clicking. But is also not getting better. No real therapy has been tried. He has history of having a pin of a fracture of the right index finger but no known prior injury to the right wrist. Denies any other injuries. 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) Tobacco abuse Home Medications naproxen 500 mg tablet 500 mg PO BID #14 tabs 11/25/22 [Rx Last Taken Unknown] Allergy/AdvReac Type Severity Reaction Status Date / Time Penicillins [PCN] Allergy Swelling Verified 11/25/22 23:06 Sulfa (Sulfonamide Allergy Swelling Verified 11/25/22 23:06 Antibiotics) Social History Smoking Status: Current every day smoker tobacco type: cigarettes ROS ROS ED Constitutional Constitutional ED: Denies chills, fever(s), subjective or sweats Gastrointestinal Gastrointestinal: Denies nausea or vomiting Musculoskeletal Musculoskeletal: Reports other Details: See history of present illness. ; Denies myalgias Integumentary Denies Abrasions or rash Neurologic Neurologic: Denies paresthesias or weakness Hematologic/Lymphatic Hematologic/Lymphatic: Denies easy bleeding, easy bruising or lymphadenopathy EXAM Physical Exam Narrative Exam Narrative: Patient sitting comfortably in the bed. He is texting on his phone when I see him. He looks nontoxic. HEENT shows no sign of trauma. Cardiorespiratory shows easy unlabored breathing. Abdomen is nontender Extremity: He is points mostly to the dorsum of his wrist as the area of pain. I do not see any swelling or deformity. It is not red. It is not warm. I can passively or actively move it without any notable pain. I do note what appears to be a track dequan in his left upper arm. But he states he used to use heroin and inject but is not doing that now. On his exam there is no indication of a septic joint. Neurologically patient has intact sensation. Const Vital Signs: 11/25/22 23:04 Temperature 98.1 F Temperature Source Temporal Pulse Rate 104 H Respiratory Rate 15 Blood Pressure 127/98 H Blood Pressure Mean 107 Pulse Ox 97 Oxygen Delivery Method Room Air MDM MDM MDM Narrative Medical decision making narrative: My independent interpretation of 4 view x-rays of the patient's right wrist show no sign of fracture or dislocation. No sign of AVN or acute abnormality. Final reading by radiology is no acute fracture or dislocation. We will place the patient in a splint. I will also provide some nonsteroidals but I think splint and resting is appropriate. If he develops worsening pain or certainly any swelling or fevers he needs to return. At this point there is no indication of infection. Discharge Plan Triage Chief Complaint: Upper Extremity Injury ED Provider: Elijah Jeff Dx/Rx/DC Orders Clinical Impression: Strain of wrist, right Instructions: ED Wrist Sprain Prescriptions: New naproxen 500 mg tablet 500 mg PO BID Qty: 14 0RF Primary Care Provider: Care Physician,No Primary Referrals: Julio Mcmillan MD [Med Staff - Active Staff] - 1 Week if not improving Care Physician,No Primary [Primary Care Provider] - Disposition Disposition: Home, Self Care
--- NOTE | 2022-11-25 23:16 | RAD_ITS ---
INDICATION: Trauma EXAMINATION/TECHNIQUE: X-RAY - RIGHT XR Wrist Min 3 Views 4 VIEWS COMPARISON: None. FINDINGS: SOFT TISSUES: No soft tissue swelling or gas. No radiopaque foreign body. BONES/JOINTS: No acute fracture or subluxation.. Normal alignment. Preservation of the joint space.. No sclerotic or destructive changes observed. RAD/Wrist min 3 Views IMPRESSION: No acute fracture or dislocation. Electronically Signed: Cassius Proctor MD at 23:28 EST ,
[2022-11-25] MEDS: Naproxen 500 MG Tablet PO (23:56)
== END 2022-11-25 23:57 | disposition home or self-care (01) ==
LOC: ED 23:25
PROVIDERS: Emergency Provider Emergency Medicine; Visit Provider Emergency Medicine
DX: S63.501A Unspecified sprain of right wrist, initial encounter (principal); F17.210 Nicotine dependence, cigarettes, uncomplicated; X50.0XXA Overexertion from strenuous movement or load, initial encounter; Y93.H1 Activity, digging, shoveling and raking
CPT/HCPCS: 73110; 99283

== ENCOUNTER 2022-12-22 02:38 | Emergency (ER) | payer MEDICAID, SELFPAY ==
[2022-12-22 02:39] VITALS: BP 130/92; PULSE 105; RESP 20; TEMP 37; O2SAT 99; BMI 29.0
[2022-12-22] MEDS: Ondansetron 4 MG/2 ML Vial IV (03:05)
[2022-12-22] MEDS: 0.9% Normal Saline 1,000 ML 999 ML IV (03:06)
[2022-12-22 03:19] LABS: Absolute Neutrophil Count 4.4 X10^3/uL (2.0-7.7); Basophil# 0.02 X10^3/uL; Basophil% 0.3 % (0-1); Eosinophil# 0.11 X10^3/uL; Eosinophils% 1.6 % (0-5); Hematocrit 39.8 % (40-54); Hemoglobin 13.4 g/dL (13.0-16.5); Lymphocyte % 27.1 % (19-41); Mean Corp Hgb Conc 33.7 g/dL (32-36); Mean Corpuscular Hgb 28.5 pg (27.0-32.0); Mean Corpuscular Volume 84.5 fL (80-94); Mean Platelet Vol. 9.4 fl (6.2-12.0); Monocyte# 0.58 X10^3/uL; Monocyte% 8.3 % (0-10); NRBC Flagged by Analyzer 0 % (0-5); Neutrophil # 4.38 X10^3/uL (2.7-7.7); Neutrophil % 62.4 % (47-70); Platelet Count 274 K/mm3 (150-450); RBC Distribution Width CV 13.6 % (11.6-14.6); RBC Distribution Width SD 42.3 fl (35.1-43.9); Red Blood Count 4.71 M/mm3 (4.6-6.2)
[2022-12-22] MEDS: Diphenoxylate/Atrop 1 Tablet 2 TABLET PO (03:36)
[2022-12-22 03:37] VITALS: BP 129/87; PULSE 84; RESP 15; O2SAT 98
[2022-12-22 03:53] LABS: Anion Gap 7 (5-15); BUN 17 mg/dL (7-18); BUN/Creat Ratio 17.9 RATIO (10-20); Calcium,Total 8.3 mg/dL (8.5-10.1); Chloride 109 mmol/L (98-107); Creatinine, Serum 0.95 mg/dL (0.70-1.30); EST Glomerular Filtration Rate 94 mL/min (>60); Est Glom Filt Rate - Afr Amer 114 mL/min (>60); Estimated Creatinine Clearance 105.43 ml/min; Glucose 125 mg/dL (74-106); Potassium 3.2 mmol/L (3.5-5.1); Sodium Level 139 mmol/L (136-145)
[2022-12-22 04:03] VITALS: BP 115/76; PULSE 70; RESP 15; O2SAT 98
--- NOTE | 2022-12-22 04:03 | EX.ED.DYSGE1 ---
HPI History of Present Illness Chief Complaint: Nausea/Vomiting Narrative Narrative: Patient is a 37-year-old male who states over the past few days he has had a generalized abdominal discomfort. He states he had multiple bouts of loose stool/diarrhea and had a bout of vomiting when symptoms began. He states the vomiting has stopped but he remains nauseous but he has had continuous diarrhea. He reports a person at work was sick with similar symptoms. He denies any history of IBS also colitis or Crohn's disease. He denies any recent travel outside the country antibiotic use or livestock exposure. 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) Tobacco abuse Home Medications diphenoxylate-atropine 2.5 mg-0.025 mg tablet (Lomotil) 1 tab PO 4X/DAY PRN PRN diarrhea 5 days #20 tabs 12/22/22 [Rx Last Taken Unknown] ondansetron 4 mg disintegrating tablet 4 mg PO TID PRN nausea and vomiting 7 days #21 tabs 12/22/22 [Rx Last Taken Unknown] Allergy/AdvReac Type Severity Reaction Status Date / Time Penicillins [PCN] Allergy Swelling Verified 11/25/22 23:06 Sulfa (Sulfonamide Allergy Swelling Verified 11/25/22 23:06 Antibiotics) Social History Smoking Status: Current every day smoker tobacco type: e-cigarettes ROS ROS ED Constitutional Constitutional ED: Denies chills or fever(s) ENT ENT ED: Denies sore throat Cardiovascular Cardiovascular: Denies chest pain Respiratory/Chest Respiratory/Chest: Denies cough or dyspnea Gastrointestinal Gastrointestinal: Reports abdominal pain, diarrhea, nausea and vomiting Genitourinary Genitourinary ED: Denies dysuria or hematuria Musculoskeletal Musculoskeletal: Reports myalgias Integumentary Denies rash Neurologic Neurologic: Denies headache(s) Hematologic/Lymphatic Hematologic/Lymphatic: Denies easy bleeding or easy bruising EXAM Physical Exam Const Vital Signs: 12/22/22 02:39 12/22/22 03:37 Temperature 98.6 F Temperature Source Temporal Pulse Rate 105 H 84 Respiratory Rate 20 H 15 Blood Pressure 130/92 H 129/87 H Blood Pressure Mean 104 101 Pulse Ox 99 98 Oxygen Delivery Method Room Air Room Air Positive well nourished and well developed General Appearance ED: well developed HEENT Reports dry mucous membranes HEENT Narrative: No signs of infection in the posterior pharynx Mouth ED: Yes dry mucous membranes Mouth: dry mucous membranes Eyes PERRL and EOMs intact bilaterally General Eye ED: Negative for scleral icterus Neck supple Resp normal respiratory effort and clear to auscultation bilaterally Cardio regular rate and regular rhythm GI non-distended GI Narrative: Abdomen is soft and nondistended with hyperactive bowel sounds. There is mild diffuse pain with palpation without voluntary guarding or rigidity Auscultation: hyperactive bowel sounds Palpation: soft Extremity normal to inspection Neuro oriented x3 and CN's II-XII intact bilaterally Sensorium / Orientation: alert Psych mental status grossly normal Skin no rashes or lesions noted and skin turgor normal General Skin Exam: Negative for jaundice MDM MDM MDM Narrative Medical decision making narrative: Patient presented to the ER afebrile and had a soft nonsurgical abdomen. His recent sick exposure and constellation of symptoms is most consistent with a viral stomach infection. There is concern he could have a colitis or diverticulitis or infectious diarrhea such as E. coli Salmonella or Shigella and secondary to this basic labs were obtained also to check for possible acute kidney injury or severe electrolyte derangement. Lab work revealed no clinically significant findings. Patient was hydrated and after being treated he had no further bouts of loose stool or diarrhea in the ER. Therefore at this time as he has no signs of systemic infection and no changes to suggest acute kidney injury or severe electrolyte derangement he is otherwise safe for discharge History & Record Review Discussion w/independent historian: Patient Lab Data Attestation: I reviewed the patient's lab results. Labs: Laboratory Results - last 24 hr 12/22/22 12/22/22 03:05 03:05 WBC 7.0 RBC 4.71 Hgb 13.4 Hct 39.8 L MCV 84.5 MCH 28.5 MCHC 33.7 RDW Std Deviation 42.3 RDW Coeff of Saul 13.6 Plt Count 274 MPV 9.4 Immature Gran % (Auto) 0.300 Neut % (Auto) 62.4 Lymph % (Auto) 27.1 Terry % (Auto) 8.3 Eos % (Auto) 1.6 Baso % (Auto) 0.3 Absolute Neuts (auto) 4.4 Absolute Lymphs (auto) 1.90 Nucleated RBC % 0 Sodium 139 Potassium 3.2 L Chloride 109 H Carbon Dioxide 23.0 Anion Gap 7 BUN 17 Creatinine 0.95 Estim Creat Clear Calc 105.43 Est GFR (MDRD) Af Amer 114 Est GFR (MDRD) Non-Af 94 BUN/Creatinine Ratio 17.9 Glucose 125 H Calcium 8.3 L Discharge Plan Triage Chief Complaint: Nausea/Vomiting ED Provider: Joseph Taylor Dx/Rx/DC Orders Clinical Impression: Diarrhea, Dehydration Instructions: Dehydration, ED Gastroenteritis, Viral (Adult) Prescriptions: New ondansetron 4 mg tablet,disintegrating 4 mg PO TID PRN (Reason: nausea and vomiting) 7 Days Qty: 21 0RF diphenoxylate-atropine [Lomotil] 2.5-0.025 mg tablet 1 tab PO 4X/DAY PRN PRN (Reason: diarrhea) 5 Days Qty: 20 0RF Stand Alone Forms: ED Work / School Excuse Primary Care Provider: Care Physician,No Primary Referrals: Care Physician,No Primary [Primary Care Provider] - Activity Restrictions/Additional Instructions: Your symptoms and work-up indicate you have a viral stomach infection. This will last anywhere from 1 day to a week with the average being 3 days. Keep yourself well-hydrated and use the medication as directed to control symptoms. Please return to the ER should you have any further concerns Disposition Disposition: Home, Self Care Discharge Date/Time: 12/22/22 04:32
== END 2022-12-22 04:32 | disposition home or self-care (01) ==
PROVIDERS: Emergency Provider Emergency Medicine; Visit Provider Emergency Medicine
DX: E86.0 Dehydration (principal); F17.290 Nicotine dependence, other tobacco product, uncomplicated; R11.2 Nausea with vomiting, unspecified; R19.7 Diarrhea, unspecified
CPT/HCPCS: 80048; 85025; 96361; 96374; 99284; J7030; A4216; J2405

== ENCOUNTER 2023-11-18 01:00 | Emergency (ER) | payer MEDICAID, SELFPAY ==
[2023-11-18 01:02] VITALS: BP 134/98; PULSE 62; RESP 18; TEMP 36.3; O2SAT 97; BMI 30.4
--- NOTE | 2023-11-18 01:36 | EX.ED.DYSGE1 ---
HPI History of Present Illness Chief Complaint: Wound Informant: patient Narrative Narrative: Patient is a 38-year-old male with past medical history of polysubstance abuse and hepatitis C. He states that he walks a lot and that he developed a blister along his left heel. He states the blister popped spontaneously and has apparently been healing okay but he was talking to his friend who informed him that foot infections can become infected easily . 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) Tobacco abuse Home Medications efinaconazole 10 % topical solution with applicator (Jublia) 1 applic topical DAILY 48 weeks #8 mL 11/18/23 [Rx Last Taken Unknown] Allergy/AdvReac Type Severity Reaction Status Date / Time Penicillins [PCN] Allergy Swelling Verified 11/18/23 01:05 Sulfa (Sulfonamide Allergy Swelling Verified 11/18/23 01:05 Antibiotics) Social History Smoking Status: Current every day smoker tobacco type: e-cigarettes ROS ROS ED Constitutional Constitutional ED: Denies chills or fever(s) ENT ENT ED: Denies sore throat Cardiovascular Cardiovascular: Denies chest pain Respiratory/Chest Respiratory/Chest: Denies cough or dyspnea Gastrointestinal Gastrointestinal: Denies abdominal pain, diarrhea, nausea or vomiting Genitourinary Genitourinary ED: Denies dysuria Musculoskeletal Musculoskeletal: Denies myalgias Integumentary Reports other Details: Positive left foot blister ; Denies rash Neurologic Neurologic: Denies headache(s) Hematologic/Lymphatic Hematologic/Lymphatic: Denies easy bleeding or easy bruising EXAM Physical Exam Const Vital Signs: 11/18/23 01:02 Temperature 97.3 F L Temperature Source Temporal Pulse Rate 62 Respiratory Rate 18 Blood Pressure 134/98 H Blood Pressure Mean 110 Pulse Ox 97 Oxygen Delivery Method Room Air Positive well nourished and well developed General Appearance ED: well developed HEENT HEENT Narrative: Normocephalic atraumatic Eyes PERRL and EOMs intact bilaterally General Eye ED: Negative for scleral icterus Neck supple Resp normal respiratory effort and clear to auscultation bilaterally Cardio regular rate and regular rhythm Extremity Extremity Narrative: Patient has a healing blister along the left lateral heel. The skin is normal color and tone there is no surrounding erythema or warmth there is no active discharge or lymphangitic streaking or crepitance palpated Patient does have changes consistent with onychomycosis along the bilateral toenails Neuro oriented x3, CN's II-XII intact bilaterally and no sensory deficits noted Sensorium / Orientation: alert Motor Exam: strength 5/5 throughout Psych mental status grossly normal Skin no rashes or lesions noted Skin Narrative: Healing blister without secondary findings to suggest infection as documented above MDM MDM MDM Narrative Medical decision making narrative: Patient presented to the ER mildly hypertensive otherwise with stable vitals. He reported that he walks a lot and developed a blister secondary to this. Differential diagnosis is for secondary infection such as cellulitis versus abscess versus osteomyelitis. The patient did not have redness or warmth or streaking or discharge there is no induration or fluctuance and there for my concern for the secondary infections is low as the area appears to have healed appropriately. Therefore there is no need for imaging or laboratory studies. Patient does have fungal infection of his nail/onychomycosis but this is not systemic or threatening and therefore who prescribed topical cream to help resolve this but otherwise there is no need for admission and he is otherwise safe for discharge History & Record Review Discussion w/independent historian: Patient Discharge Plan Triage Chief Complaint: Wound ED Provider: Joseph Taylor Dx/Rx/DC Orders Clinical Impression: Onychomycosis, Blister of left heel, Polysubstance abuse Instructions: ED Blister (Adult), ED Nail Fungal Infection Prescriptions: New Jublia 10 % solution with applicator 1 applic topical DAILY 336 Days Qty: 8 0RF Primary Care Provider: Care Physician,No Primary Referrals: Paul Ambrocio MD [Non-Staff] - Care Physician,No Primary [Primary Care Provider] - Disposition Disposition: Home, Self Care Discharge Date/Time: 11/18/23 02:14
== END 2023-11-18 02:14 | disposition home or self-care (01) ==
LOC: ED 01:48
PROVIDERS: Emergency Provider Emergency Medicine; Visit Provider Emergency Medicine
DX: S90.822A Blister (nonthermal), left foot, initial encounter (principal); F19.19 Other psychoactive substance abuse with unspecified psychoactive substance-induced disorder; B18.2 Chronic viral hepatitis C; B35.1 Tinea unguium; F17.290 Nicotine dependence, other tobacco product, uncomplicated; X58.XXXA Exposure to other specified factors, initial encounter
CPT/HCPCS: 99282; A4216

== ENCOUNTER 2024-03-16 16:02 | Inpatient (IN) | payer MEDICAID, SELFPAY ==
[2024-03-16 16:03] VITALS: BP 131/84; PULSE 115; RESP 20; TEMP 36.4; O2SAT 98; BMI 29.0
[2024-03-16 17:07] LABS: Absolute Lymphocyte Count 0.96 X10^3/uL (0.83-4.51); Absolute Neutrophil Count 5.2 X10^3/uL (2.0-7.7); Basophil# 0.05 X10^3/uL; Basophil% 0.7 % (0-1); Eosinophil# 0.27 X10^3/uL; Eosinophils% 3.8 % (0-5); Hematocrit 37.4 % (40-54); Hemoglobin 12.4 g/dL (13.0-16.5); Lymphocyte # 0.96 X10^3/ul (0.83-4.51); Lymphocyte % 13.4 % (19-41); Mean Corp Hgb Conc 33.2 g/dL (32-36); Mean Corpuscular Hgb 27.9 pg (27.0-32.0); Mean Corpuscular Volume 84.2 fL (80-94); Mean Platelet Vol. 9.2 fl (6.2-12.0); Monocyte# 0.67 X10^3/uL; Monocyte% 9.4 % (0-10); NRBC Flagged by Analyzer 0 % (0-5); Neutrophil # 5.19 X10^3/uL (2.7-7.7); Neutrophil % 72.4 % (47-70); Platelet Count 208 K/mm3 (150-450); RBC Distribution Width CV 12.9 % (11.6-14.6); RBC Distribution Width SD 39.6 fl (35.1-43.9); Red Blood Count 4.44 M/mm3 (4.6-6.2); White Blood Count 7.2 K/mm3 (4.4-11.0)
[2024-03-16 17:18] LABS: Alcohol, Blood (Medical)-Serum < 3.0 mg/dL
[2024-03-16 17:19] LABS: Anion Gap 6 (5-15); BUN 12 mg/dL (7-18); BUN/Creat Ratio 10.8 RATIO (10-20); Calcium,Total 9.1 mg/dL (8.5-10.1); Chloride 103 mmol/L (98-107); Creatinine, Serum 1.11 mg/dL (0.70-1.30); EST Glomerular Filtration Rate 78 mL/min (>60); Est Glom Filt Rate - Afr Amer 95 mL/min (>60); Estimated Creatinine Clearance 98.75 ml/min; Glucose 98 mg/dL (74-106); Potassium 3.3 mmol/L (3.5-5.1); Sodium Level 136 mmol/L (136-145)
[2024-03-16 18:02] VITALS: BP 118/78; PULSE 82; RESP 16; O2SAT 97
--- NOTE | 2024-03-16 18:17 | EDS_ITS ---
HPI History of Present Illness Chief Complaint: Substance Abuse Informant: patient Onset/Context/Timing Onset: Today Timing: Continuous Worsened by: Nothing Relieved by: Nothing Associated Symptoms Associated Symptoms: Negative for vomiting*, diarrhea*, fever*, rash*, seizure, tremor, palpatations, suicidal ideation or homicidal ideation Narrative Narrative: Patient presents requesting detox from heroin and fentanyl. Patient states he normally uses approximately quarter gram per day. Patient states he injects. Patient states his last use was earlier today. Patient denies any nausea, vomiting, or diarrhea. Patient denies any fevers or chills. Patient denies any seizures or tremors. Patient denies any suicidal or homicidal ideations. Patient has been seen here in the past for detox but this was in June 2020. 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) Chronic dental pain Acute opioid withdrawal Home Medications ?Medication ?Instructions ?Recorded ?Last Taken ?Type NK 03/16/24 Unknown History Allergy/AdvReac Type Severity Reaction Status Date / Time Penicillins (PCN) Allergy Swelling Verified 11/18/23 01:05 Sulfa (Sulfonamide Allergy Swelling Verified 11/18/23 01:05 Antibiotics) Social History Smoking Status: Current every day smoker tobacco type: cigarettes and e- cigarettes ROS ROS ED Constitutional Constitutional ED: Denies chills or fever(s) Eyes Eyes: Denies blurry vision or change in vision ENT ENT ED: Reports rhinorrhea; Denies sore throat Cardiovascular Cardiovascular: Denies chest pain or palpitations Respiratory/Chest Respiratory/Chest: Denies cough or dyspnea Gastrointestinal Gastrointestinal: Denies nausea or vomiting Genitourinary Genitourinary ED: Denies dysuria or hematuria Musculoskeletal Musculoskeletal: Reports back pain and neck pain Integumentary Denies abscess or rash Neurologic Neurologic: Denies headache(s) or weakness Allergic/Immunologic Allergic/Immunologic ED: Denies mouth swelling or urticaria EXAM Physical Exam Const Vital Signs: 03/16/24 16:03 Temperature 97.6 F L Temperature Source Temporal Pulse Rate 115 H Respiratory Rate 20 H Blood Pressure 131/84 H Blood Pressure Mean 99 Pulse Ox 98 Oxygen Delivery Method Room Air Positive well nourished and well developed General Appearance ED: well developed and NAD HEENT Reports moist mucous membranes Neck supple and no JVD Resp normal respiratory effort and clear to auscultation bilaterally Cardio regular rhythm Rate: tachycardic GI soft to palpation, non-tender and non-distended Neuro oriented x3, CN's II-XII intact bilaterally and no sensory deficits noted [place] Coma Scale: document GCS findings Spontaneous Obeys Commands Oriented 15 Sensorium / Orientation: alert Speech: speech normal Motor Exam: strength 5/5 throughout Psych mental status grossly normal and thought process normal MDM MDM MDM Narrative Medical decision making narrative: Medical screening labs will be obtained. CBC will be obtained to assess for leukocytosis and anemia. Basic metabolic profile will be obtained to assess for electrolyte abnormality and renal function. Serum alcohol level will be obtain ed to assess for alcohol intoxication. Urine tox screen will be obtained to assess for substance abuse. Lab Data Labs: Laboratory Results - last 24 hr 03/16/24 16:51 WBC 7.2 RBC 4.44 L Hgb 12.4 L Hct 37.4 L MCV 84.2 MCH 27.9 MCHC 33.2 RDW Std Deviation 39.6 RDW Coeff of Saul 12.9 Plt Count 208 MPV 9.2 Immature Gran % (Auto) 0.300 Neut % (Auto) 72.4 H Lymph % (Auto) 13.4 L Rush % (Auto) 9.4 Eos % (Auto) 3.8 Baso % (Auto) 0.7 Absolute Neuts (auto) 5.2 Absolute Lymphs (auto) 0.96 Nucleated RBC % 0 Sodium 136 Potassium 3.3 L Chloride 103 Carbon Dioxide 27.0 Anion Gap 6 BUN 12 Creatinine 1.11 Estim Creat Clear Calc 98.75 Est GFR (MDRD) Af Amer 95 Est GFR (MDRD) Non-Af 78 BUN/Creatinine Ratio 10.8 Glucose 98 Calcium 9.1 Ethyl Alcohol < 3.0 Management Discussion w/another healthcare provider: Hospitalist Treatment and Re-Evaluation Narrative: Case was discussed with the hospitalist. He will admit the patient for detox. Patient understood and was agreeable with the plan. All questions were answered. Discharge Plan Triage Chief Complaint: Substance Abuse ED Provider: Amauri Carrera Dx/Rx/DC Orders Clinical Impression: Acute opioid withdrawal, Tobacco abuse, Chronic hepatitis C Prescriptions: No Action Jublia 10 % solution with applicator 1 applic topical DAILY 336 Days Qty: 8 0RF Primary Care Provider: Care Physician,No Primary Referrals: Care Physician,No Primary [Primary Care Provider] - Print Language: Kazakh Disposition Disposition: [facility]
--- NOTE | 2024-03-16 18:26 | PCM.HP.STD ---
[facility] - General General Date of Admission: 03/16/24 Date of Service: 03/16/24 Chief Complaint: Patient having opioid withdrawal symptoms came for help for detox HPI Narrative KHANH DE LA VEGA, is a 38 M with history of polysubstance use including opioids, methamphetamine came for help for medical stabilization. Patient is stated that he takes multiple times probably 2 to 3 g of opioids including mainly fentanyl but may be heroin or other cocktail available on the streets. He was just IV needles and he also injects methamphetamine. Patient states he also takes marijuana. He smokes cigarettes 1 pack/day. He denies drinking alcohol. Patient last dose IV fentanyl was before he came to the ER around noon time. He is having muscle twitching, abdominal cramps, sweating and feeling restless. In the past he had withdrawal symptoms including vomiting, hallucinations. Denies history of seizure. He also has history of infective endocarditis in 2019. Has history of chronic hep C. 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 No fever. HEENT: Reports systems reviewed and no addt'l complaints, except as documented Respiratory/Chest: No acute shortness of breath or respiratory distress or wheezing. CVS: No chest pain pressure or tightness. Gastrointestinal: Denies coffee ground emesis, hematemesis or vomiting. Feeling nauseated Genitourinary: Denies burning urination or new urinary tract symptoms Musculoskeletal: Restlessness. Denies acute joint pain or limited range of motion. No acute injury Neurologic: Denies seizure-like symptoms. No acute or strokelike symptoms. skin: No ulcer. No rash. Has bruises from the needles. Endocrinology: Reports systems reviewed and no addt'l complaints, except as documented Hematologic/Lymphatic: Reports systems reviewed and no addt'l complaints, except as documented Rest 14 ROS are negative except as mentioned in HPI Vital Signs Vital Signs Vital Signs: 03/16/24 16:03 Temperature 97.6 F L Temperature Source Temporal Pulse Rate 115 H Respiratory Rate 20 H Blood Pressure 131/84 H Blood Pressure Mean 99 Pulse Ox 98 Oxygen Delivery Method Room Air Weight Weight: 196 lb 13.965 oz Body Mass Index (BMI) 29.0 Physical Exam Narrative General: Alert, Oriented x3, Cooperative HEENT: Atraumatic, PERRLA, EOMI, Normocephalic Oral: Oral mucosa dry. No Gingival or Mucosal Lesions/ Ulcerations Neck: Supple, No JVD, Negative Carotid Bruits Chest wall/Lungs: Air entry diminished in bilateral lung bases. No crepitation/rhonchi Cardiovascular: Regular rate, Regular Rhythm, Normal S1, Normal S2, soft systolic murmur at cardiac apex. Abdomen: Bowel Sounds Present, Soft, Non Tender, Non-Distended : No dysuria. No renal angle tenderness. No suprapubic tenderness. Extremities: No edema, Capillary Refill Less than 3 Seconds Skin: Needleless scar dequan. Chronic thrombophlebitis with thickened and hard antecubital peripheral veins Musculoskeletal: No Tenderness to Palpation of Joints or Extremities Neurological: Cranial nerves II-XII grossly intact, DTR 2+/4. No acute focal neurological deficit. Psych/Mental Status: Normal Affect, Appropriate. Results Lab / Micro Data 03/16/24 16:51 03/16/24 16:51 Labs: Laboratory Results - last 24 hr 03/16/24 16:51: WBC 7.2, RBC 4.44 L, Hgb 12.4 L, Hct 37.4 L, MCV 84.2, MCH 27.9, MCHC 33.2, RDW Std Deviation 39.6, RDW Coeff of Saul 12.9, Plt Count 208, MPV 9.2, Immature Gran % (Auto) 0.300, Neut % (Auto) 72.4 H, Lymph % (Auto) 13.4 L, Baca % (Auto) 9.4, Eos % (Auto) 3.8, Baso % (Auto) 0.7, Absolute Neuts (auto) 5.2, Absolute Lymphs (auto) 0.96, Nucleated RBC % 0, Sodium 136, Potassium 3.3 L, Chloride 103, Carbon Dioxide 27.0, Anion Gap 6, BUN 12, Creatinine 1.11, Estim Creat Clear Calc 98.75, Est GFR (MDRD) Af Amer 95, Est GFR (MDRD) Non-Af 78, BUN/Creatinine Ratio 10.8, Glucose 98, Calcium 9.1, Ethyl Alcohol < 3.0 Assessment & Plan Assessment/Plan (1) Opioid withdrawal delirium, acute, hyperactive: PLAN: Plan This is a 38-year-old gentleman being admitted for acute opioid withdrawal syndrome. 1. Acute opioid withdrawal syndrome with history of chronic opioid use, dependence and tolerance: Patient is being admitted on [facility] floor. The patient is started on buprenorphine along with other adjunctive medications as needed for medical stabilization as per order set of opioid withdrawal syndrome.Patient also on trazodone, hydroxyzine, gabapentin as needed ordered. Advised quitting opioid use. ux design manager consult. 2. Polysubstance use including chronic methamphetamine use and dependence, cannabis/marijuana use: Monitor for tachycardia. Currently blood pressure and heart rate are controlled. No fever 3. Chronic smoking, nicotine dependence: Smokes 1 pack cigarettes daily. Nicotine patch ordered 3. Mild hypokalemia and hypophosphatemia: Potassium 3.3, phosphorus 2.0. Serum magnesium normal. Electrolyte replacement ordered. 4. History of infective endocarditis/tricuspid valve apparatus vegetation: Patient was last admitted in June 2022 for fever and was found to have infective endocarditis. No history of deep abscess. At that time, 2D echo was done showed tricuspid valve vegetation. At that time patient was transferred to [facility] for further treatment. Currently patient denies fever or chills. Systolic murmur present on exam. 2D echo was done June 2022 Interpretation Summary Left ventricular systolic function is normal. The estimated ejection fraction is 55 %. Borderline to mildly enlarged left atrium. Mild diffuse mitral valve thickening. Trivial mitral valve insufficiency. 2D echocardiographic images obtained demonstrate a Trivial pulmonic valve insufficiency. Right ventricular systolic pressure estimated to be 32 mmHg. No evidence for diastolic dysfunction. Discussed with the sequins stringer and ID. They agree for transfer to tertiary care to be evaluated by cardiac surgeon for tricuspid valvular vegetation. Continue IV antibiotic. MRSA nasal screen negative. HIV 1 and 2 antibody nonreactive. HBV surface antigen nonreactive. HBV core antibody and HCV RNA quantitative are pending. 5. History of chronic hep C: Advised follow-up in GI/hepatology clinic for further management 6. History of paranoid schizophrenia: Patient not on an treatment or medication for that. Advised to follow-up with psychiatry as an outpatient. 7 DVT prophylaxis, low risk. Early ambulation encouraged Living will/advanced directive/end of life care: Patient does not have living will or advanced directive. After discussion of benefits/risks procedures involved with full code, DNR CC arrest and DNR CC, the patient opted for full code. Patient is not fully cognizant to talk about in detail but stated he wants to be full code Patient does want artificial life support including intubation, tube feed, ventilator and/chest compression, central venous catheter, vasopressor and DC shock if needed Total time spent in [id number] encounter in discussion of advanced directive 17 minutes. Laboratory Results 03/16/24 16:51: WBC 7.2, RBC 4.44 L, Hgb 12.4 L, Hct 37.4 L, MCV 84.2, MCH 27.9, MCHC 33.2, RDW Std Deviation 39.6, RDW Coeff of Saul 12.9, Plt Count 208, MPV 9.2, Immature Gran % (Auto) 0.300, Neut % (Auto) 72.4 H, Lymph % (Auto) 13.4 L, Baca % (Auto) 9.4, Eos % (Auto) 3.8, Baso % (Auto) 0.7, Absolute Neuts (auto) 5.2, Absolute Lymphs (auto) 0.96, Nucleated RBC % 0, PT 14.0, INR 1.1, Sodium 136, Potassium 3.3 L, Chloride 103, Carbon Dioxide 27.0, Anion Gap 6, BUN 12, Creatinine 1.11, Estim Creat Clear Calc 98.75, Est GFR (MDRD) Af Amer 95, Est GFR (MDRD) Non-Af 78, BUN/Creatinine Ratio 10.8, Glucose 98, Calcium 9.1, Phosphorus 2.0 L, Magnesium 2.1, Ethyl Alcohol < 3.0 Charges/Coding Visit Charges Inpatient E&M: 95466 Init Hosp L3
[2024-03-16] MEDS: Potassium Chloride Oral Tablet 20 MEQ 40 MEQ PO (18:42)
[2024-03-16 18:43] VITALS: BP 120/77; PULSE 82; RESP 16; TEMP 36.1; O2SAT 98
[2024-03-16 19:13] LABS: Magnesium 2.1 mg/dL (1.6-2.6)
[2024-03-16 19:21] LABS: International Normalized Ratio 1.1
[2024-03-16 20:29] VITALS: BMI 29.1
[2024-03-16 20:42] VITALS: BP 118/81; PULSE 82; RESP 17; TEMP 36.3; O2SAT 98
[2024-03-16] MEDS: Na Biphos/Potassium Phosphate PACKET 1 PACKET PO (21:05)
[2024-03-16] MEDS: Methocarbamol 750 MG Tablet PO (21:06)
[2024-03-16] MEDS: Dicyclomine 10 MG Capsule 20 MG PO (21:06)
[2024-03-16] MEDS: traZODone 100 MG Tablet PO (21:06)
[2024-03-16] MEDS: Ondansetron 8 MG Tablet PO (21:06)
[2024-03-16] MEDS: Buprenorphine HCl 2 MG TAB.SUBL SL (21:06)
[2024-03-17 00:14] VITALS: BP 101/63; PULSE 81; RESP 16; TEMP 36.4; O2SAT 97
[2024-03-17] MEDS: hydrOXYzine PAM 25 MG Capsule 50 MG PO (00:23)
[2024-03-17] MEDS: Ibuprofen 400 MG Tablet PO ×2 (00:23→09:16)
[2024-03-17 05:02] VITALS: BP 125/54; PULSE 74; RESP 16; TEMP 36.6; O2SAT 97
[2024-03-17] MEDS: Buprenorphine HCl 2 MG TAB.SUBL SL ×3 (05:11→20:57)
[2024-03-17] MEDS: Na Biphos/Potassium Phosphate PACKET 1 PACKET PO ×3 (05:11→20:57)
[2024-03-17] MEDS: Dicyclomine 10 MG Capsule 20 MG PO (05:30)
[2024-03-17] MEDS: Methocarbamol 750 MG Tablet PO ×2 (05:30→20:56)
[2024-03-17] MEDS: Calcium Carbonate 500 MG Tablet 1000 MG PO (05:37)
[2024-03-17 06:15] LABS: Amphetamine Urine VISTA POSITIVE (<1000 ng/mL); Barbiturate Urine VISTA NEGATIVE (< 200 ng/mL); Benzodiazepine Urine VISTA POSITIVE (< 200 ng/mL); Cocaine Urine VISTA NEGATIVE (< 300 ng/mL); Ecstacy Urine VISTA NEGATIVE (< 500 ng/mL); Methadone Urine VISTA NEGATIVE (< 300 ng/mL); PCP Urine VISTA NEGATIVE (< 25 ng/mL); THC Urine VISTA POSITIVE (< 50 ng/mL); Vista UDS pH Range 7
[2024-03-17 08:17] LABS: Hematocrit 34.2 % (40-54); Hemoglobin 11.3 g/dL (13.0-16.5); Mean Corpuscular Hgb 27.8 pg (27.0-32.0); Mean Corpuscular Volume 84.2 fL (80-94); Platelet Count 197 K/mm3 (150-450); Red Blood Count 4.06 M/mm3 (4.6-6.2); White Blood Count 4.7 K/mm3 (4.4-11.0)
[2024-03-17 08:32] LABS: Anion Gap 6 (5-15); BUN 10 mg/dL (7-18); BUN/Creat Ratio 11.4 RATIO (10-20); Calcium,Total 8.6 mg/dL (8.5-10.1); Chloride 105 mmol/L (98-107); Creatinine, Serum 0.88 mg/dL (0.70-1.30); EST Glomerular Filtration Rate 103 mL/min (>60); Est Glom Filt Rate - Afr Amer 124 mL/min (>60); Estimated Creatinine Clearance 124.75 ml/min; Glucose 108 mg/dL (74-106); Potassium 3.7 mmol/L (3.5-5.1); Sodium Level 139 mmol/L (136-145)
[2024-03-17] MEDS: Pantoprazole Sodium 20 MG Tablet PO (09:02)
[2024-03-17] MEDS: Ondansetron 8 MG Tablet PO ×2 (09:16→20:56)
[2024-03-17 09:20] VITALS: BP 76/42; PULSE 66; RESP 16; TEMP 37.1; O2SAT 97
--- NOTE | 2024-03-17 10:25 | ADDICTION ---
This grant writer met with PT to conduct ASAM, MSE, AUDIT assessments and to plan for d/c. PT A+Ox4 and participated actively. All assessments completed. PT plans to f/u with [facility] for follow-up outpatient treatment services. PT did not indicate a need for transportation post d/c from [facility].
[2024-03-17 11:18] VITALS: BP 85/49; PULSE 66; RESP 18; TEMP 36.6; O2SAT 95
--- NOTE | 2024-03-17 11:40 | PCM.PN.HOSP ---
Reason for Visit Reason for Visit: Diagnoses Opioid use, unspecified with withdrawal (03/16/24) Subjective Subjective No acute events overnight. Saw patient bedside this morning. Patient was sleeping on my arrival to the room. Upon awakening, patient reported feeling fatigued and still somewhat nauseous but otherwise his withdrawal symptoms were well-controlled with medication. Noted that he lives at home and is planning to return home on discharge with outpatient therapy as needed. No other acute concerns this morning. Objective Data Objective Data Vital Signs: Vital Signs Temp Pulse Resp BP Pulse Ox O2 Del Method 97.8 F 66 18 85/49 L 95 Room Air 03/17/24 11:18 03/17/24 11:18 03/17/24 11:18 03/17/24 11:18 03/17/24 11:18 03/17/24 11:18 Oxygen Delivery Method Room Air Weight: 89.6 kg Body Mass Index (BMI) 29.1 Intake & Output: Intake and Output for Last 24 Hours 03/15/24 03/16/24 03/17/24 23:59 23:59 23:59 Output Total 200 / 200 Balance -200 / -200 Lab / Micro Data 03/17/24 08:00 03/17/24 08:00 Labs: Laboratory Results - last 24 hr 03/16/24 16:51: WBC 7.2, RBC 4.44 L, Hgb 12.4 L, Hct 37.4 L, MCV 84.2, MCH 27.9, MCHC 33.2, RDW Std Deviation 39.6, RDW Coeff of Saul 12.9, Plt Count 208, MPV 9.2, Immature Gran % (Auto) 0.300, Neut % (Auto) 72.4 H, Lymph % (Auto) 13.4 L, Waldo % (Auto) 9.4, Eos % (Auto) 3.8, Baso % (Auto) 0.7, Absolute Neuts (auto) 5.2, Absolute Lymphs (auto) 0.96, Nucleated RBC % 0, PT 14.0, INR 1.1, Sodium 136, Potassium 3.3 L, Chloride 103, Carbon Dioxide 27.0, Anion Gap 6, BUN 12, Creatinine 1.11, Estim Creat Clear Calc 98.75, Est GFR (MDRD) Af Amer 95, Est GFR (MDRD) Non-Af 78, BUN/Creatinine Ratio 10.8, Glucose 98, Calcium 9.1, Phosphorus 2.0 L, Magnesium 2.1, Ethyl Alcohol < 3.0 03/17/24 05:19: Urine Opiates Screen NEGATIVE, Urine Methadone Screen NEGATIVE, Ur Barbiturates Screen NEGATIVE, Ur Phencyclidine Scrn NEGATIVE, Ur Amphetamines Screen POSITIVE H, MDMA (Ecstasy) Screen NEGATIVE, U Benzodiazepines Scrn POSITIVE H, Urine Cocaine Screen NEGATIVE, U Cannabinoids Screen POSITIVE H, Ur Drug Screen Comment 03/17/24 08:00: WBC 4.7, RBC 4.06 L, Hgb 11.3 L, Hct 34.2 L, MCV 84.2, MCH 27.8, MCHC 33.0, RDW Std Deviation 40.0, RDW Coeff of Saul 13.0, Plt Count 197, MPV 9.0, Sodium 139, Potassium 3.7, Chloride 105, Carbon Dioxide 28.0, Anion Gap 6, BUN 10, Creatinine 0.88, Estim Creat Clear Calc 124.75, Est GFR (MDRD) Af Amer 124, Est GFR (MDRD) Non-Af 103, BUN/Creatinine Ratio 11.4, Glucose 108 H, Calcium 8.6, Magnesium 2.0 Physical Exam Const alert, oriented x3, no apparent distress and average body habitus Constitutional Narrative: Pleasant middle-age male, mildly fatigued appearing, otherwise laying comfortably in bed, conversing normally, no acute distress. General Appearance: cooperative and comfortable HEENT normocephalic, head/scalp atraumatic, hearing grossly normal bilaterally, nasal mucous membranes and turbinates normal and moist oral mucous membranes Eyes PERRL, EOMs intact bilaterally and conjunctivae normal Neck full ROM Chest inspection of chest normal Resp normal respiratory effort, normal air movement, no use of accessory muscles and clear to auscultation bilaterally Cardio regular rate, regular rhythm, no murmurs and peripheral pulses 2+ throughout GI normal to inspection, nondistended, normoactive bowel sounds, soft to palpation, non-tender and non-distended Back/Spine normal ROM Extremity normal to inspection, full ROM and no pedal edema Skin no rashes or lesions noted Neuro moves all extremities and no focal motor deficits Speech: speech normal Psych mental status grossly normal Assessment & Plan Assessment/Plan (1) Acute opioid withdrawal: (2) Polysubstance abuse: (3) Tobacco abuse: PLAN: Plan Patient is a 38-year-old male who presented [facility] ED on 03/16/2024 for opiate detoxification. 1. Opiate abuse with desire for detoxification ? Addiction medicine following. Continue buprenorphine taper with other as needed medications per opiate withdrawal order set. Encouraged opiate cessation. Patient planning on home with outpatient therapy on discharge. 2. Polysubstance abuse ? Patient reported chronic methamphetamine abuse and cannabis use. UDS on admit positive for amphetamines, cannabinoids and benzodiazepines. Treating withdrawal as noted above, otherwise supportive care indicated. Encouraged cessation on discharge. 3. Tobacco abuse ? Current smoker, 1 pack/day. Nicotine patch provided per patient request. 4. Mild hypokalemia and hypophosphatemia, improved ? Potassium 3.3, phosphorus 2.0 on admit. Replete as needed. 5. Mild normocytic anemia ? Hemoglobin 12.4 on admit, decreased to 11.3 on hospital day 2 after IV fluid administration. Suspect mild chronic anemia from IV drug use as noted above. No need to monitor further CBCs. Chronic medical conditions: ? History of infective endocarditis/tricuspid valve apparatus vegetation: Admitted here in June 2020 for fevers, was found to have infective endocarditis. Was transferred to [facility] for further management. Per [facility] records, appears that the GRICELDA done there showed a thickened tricuspid valve but no evidence of endocarditis so he was just treated with antibiotics and did not require any procedures. No murmur noted on exam on this admission, no concern for recurrent endocarditis. ? History of chronic hepatitis C: Continue outpatient GI follow-up. ? History of paranoid schizophrenia: Not currently on any treatment, recommend outpatient follow-up with psychiatry. DVT prophylaxis: Low risk, ambulate CODE STATUS: Full code, verified Expected disposition: Home, 2 to 3 days Total clinical time spent by myself addressing the patient's medical issues, reviewing all the data, and collaborating with patient's care team: 35 minutes. Charges/Coding Visit Charges Inpatient E&M: 88773 Subs Hosp L2
[2024-03-17 13:24] VITALS: BP 93/46; PULSE 58; RESP 16; TEMP 36.4; O2SAT 98
[2024-03-17 20:46] VITALS: BP 95/55; PULSE 69; RESP 16; TEMP 36.6; O2SAT 98
[2024-03-17] MEDS: Senna Tablet 2 TABLET PO (20:56)
[2024-03-18 03:24] VITALS: BP 115/88; PULSE 62; RESP 16; TEMP 36.8; O2SAT 98
[2024-03-18] MEDS: Buprenorphine HCl 2 MG TAB.SUBL SL ×3 (05:16→20:52)
[2024-03-18] MEDS: Na Biphos/Potassium Phosphate PACKET 1 PACKET PO ×3 (05:16→20:52)
[2024-03-18 09:18] VITALS: BP 102/56; PULSE 67; RESP 18; TEMP 37.1; O2SAT 95
[2024-03-18] MEDS: Pantoprazole Sodium 20 MG Tablet PO (09:22)
[2024-03-18] MEDS: Senna Tablet 2 TABLET PO ×2 (10:49→20:52)
--- NOTE | 2024-03-18 11:02 | PN.HOSP_ITS ---
Reason for Visit Reason for Visit: Diagnoses Opioid dependence with withdrawal (03/16/24) Opioid use, unspecified with withdrawal (03/16/24) Other psychoactive substance abuse, uncomplicated (03/16/24) Tobacco use (03/16/24) Subjective Subjective No acute events overnight. Patient seen at bedside this morning. Laying comfortably in bed, conversing normally, in no acute distress. Does report mild constipation this morning and is asking for a laxative as needed. Otherwise feeling well, no other concerns this morning. Objective Data Objective Data Vital Signs: Vital Signs Temp Pulse Resp BP Pulse Ox O2 Del Method 98.7 F 67 18 102/56 L 95 Room Air 03/18/24 09:18 03/18/24 09:18 03/18/24 09:18 03/18/24 09:18 03/18/24 09:18 03/18/24 09:18 Oxygen Delivery Method Room Air Weight: 89.6 kg Body Mass Index (BMI) 29.1 Intake & Output: Intake and Output for Last 24 Hours 03/16/24 03/17/24 03/18/24 23:59 23:59 23:59 Intake Total 240 / 240 1100 / 1100 Output Total 200 / 200 Balance 40 / 40 1100 / 1100 Lab / Micro Data 03/17/24 08:00 03/17/24 08:00 Physical Exam Const alert, oriented x3, no apparent distress and average body habitus Constitutional Narrative: Pleasant middle-age male, mildly fatigued appearing, otherwise laying comfortably in bed, conversing normally, no acute distress. General Appearance: cooperative and comfortable HEENT normocephalic, head/scalp atraumatic, hearing grossly normal bilaterally, nasal mucous membranes and turbinates normal and moist oral mucous membranes Eyes PERRL, EOMs intact bilaterally and conjunctivae normal Neck full ROM Chest inspection of chest normal Resp normal respiratory effort, normal air movement, no use of accessory muscles and clear to auscultation bilaterally Cardio regular rate, regular rhythm, no murmurs and peripheral pulses 2+ throughout GI normal to inspection, nondistended, normoactive bowel sounds, soft to palpation, non-tender and non-distended Back/Spine normal ROM Extremity normal to inspection, full ROM and no pedal edema Skin no rashes or lesions noted Neuro moves all extremities and no focal motor deficits Speech: speech normal Psych mental status grossly normal Assessment & Plan Assessment/Plan (1) Acute opioid withdrawal: (2) Polysubstance abuse: (3) Tobacco abuse: PLAN: Plan Patient is a 38-year-old male who presented [facility] ED on 03/16/2024 for opiate detoxification. 1. Opiate abuse with desire for detoxification ? Addiction medicine following. Continue buprenorphine taper with other as needed medications per opiate withdrawal order set. Encouraged opiate cessation. Patient planning on home with outpatient therapy with 180 on discharge. If remains stable overnight, plan for discharge home tomorrow. 2. Polysubstance abuse ? Patient reported chronic methamphetamine abuse and cannabis use. UDS on admit positive for amphetamines, cannabinoids and benzodiazepines. Treating withdrawal as noted above, otherwise supportive care indicated. Encouraged cessation on discharge. 3. Tobacco abuse ? Current smoker, 1 pack/day. Nicotine patch provided per patient request. 4. Mild hypokalemia and hypophosphatemia, improved ? Potassium 3.3, phosphorus 2.0 on admit. Replete as needed. 5. Mild normocytic anemia ? Hemoglobin 12.4 on admit, decreased to 11.3 on hospital day 2 after IV fluid administration. Suspect mild chronic anemia from IV drug use as noted above. No need to monitor further CBCs. 6. Mild constipation ? Presumed secondary to opiate abuse. Senna and MiraLAX as needed ordered. Chronic medical conditions: ? History of infective endocarditis/tricuspid valve apparatus vegetation: Admitted here in June 2020 for fevers, was found to have infective endocarditis. Was transferred to [facility] for further management. Per [facility] records, appears that the GRICELDA done there showed a thickened tricuspid valve but no evidence of endocarditis so he was just treated with antibiotics and did not require any procedures. No murmur noted on exam on this admission, no concern for recurrent endocarditis. ? History of chronic hepatitis C: Continue outpatient GI follow-up. ? History of paranoid schizophrenia: Not currently on any treatment, recommend outpatient follow-up with psychiatry. DVT prophylaxis: Low risk, ambulate CODE STATUS: Full code, verified Expected disposition: Home, 1 to 2 days Total clinical time spent by myself addressing the patient's medical issues, reviewing all the data, and collaborating with patient's care team: 25 minutes. Charges/Coding Visit Charges Inpatient E&M: 56329 [facility] Hosp L1
[2024-03-18 14:00] VITALS: BP 104/65; PULSE 78; RESP 18; TEMP 36.9; O2SAT 98
[2024-03-18 20:58] VITALS: BP 100/63; PULSE 72; RESP 16; TEMP 36.8; O2SAT 96
[2024-03-19] MEDS: Dicyclomine 10 MG Capsule 20 MG PO (05:34)
[2024-03-19 05:35] VITALS: BP 112/69; PULSE 74; RESP 16; TEMP 36.7; O2SAT 98
[2024-03-19 08:58] VITALS: BP 94/61; PULSE 61; RESP 16; TEMP 36.6; O2SAT 96
[2024-03-19] MEDS: Ondansetron 8 MG Tablet PO (09:06)
[2024-03-19] MEDS: hydrOXYzine PAM 25 MG Capsule 50 MG PO (09:07)
[2024-03-19] MEDS: Buprenorphine HCl 2 MG TAB.SUBL SL (09:07)
[2024-03-19] MEDS: Pantoprazole Sodium 20 MG Tablet PO (09:08)
[2024-03-19] MEDS: Senna Tablet 2 TABLET PO (09:17)
--- NOTE | 2024-03-19 11:22 | PCM.DC ---
Discharge Instructions Diet Discharge Diet: No restrictions Activity Discharge Activity: No Restrictions Follow Up Care Test Results: Test results from this visit will be discussed in further detail at your follow-up appointment, if applicable. Discharge Plan Admission Admit Date/Time: 03/16/24 19:42 Primary Reason for Your Visit: Opiate withdrawal Attending Provider: Barron Camara Primary Care Provider: Care Physician,No Primary Consulting Providers: Elkin Garcia Discharge Orders/Prescriptions Prescriptions: New senna 8.6 mg capsule 8.6 mg PO BID PRN (Reason: constipation) 7 Days Qty: 14 0RF polyethylene glycol 3350 [Miralax] 17 gram/dose powder 17 g PO DAILY 7 Days Qty: 119 0RF Referrals / Follow Up: Care Physician,No Primary [Primary Care Provider] - Disposition Disposition (needs filled in before D/C Order can be placed): Home, Self Care
--- NOTE | 2024-03-19 11:24 | PCM.DC.SUM ---
Providers Date of Admission: 03/16/24 Date of Discharge: 03/19/24 Primary Care Physician: No Primary Care Phys Reason For Visit: ACUTE OPOID WITHDRAWAL SYNDROME Diagnosis Discharge Diagnosis (1) Acute opioid withdrawal: Status: Chronic Code(s): F11.23 - Opioid dependence with withdrawal (2) Polysubstance abuse: Status: Chronic Code(s): F19.10 - Other psychoactive substance abuse, uncomplicated (3) Tobacco abuse: Status: Chronic Code(s): Z72.0 - Tobacco use Medications at Discharge Home Medications polyethylene glycol 3350 17 gram/dose oral powder (Miralax) 17 g PO DAILY 7 days #119 grams 03/19/24 sennosides 8.6 mg capsule (senna) 8.6 mg PO BID PRN constipation 7 days #14 caps 03/19/24 Hospital Course Operations None Procedures None Summary of Care Provided Minutes Spent on Discharge: 35 Hospital Course: Patient is a 38-year-old male who presented [facility] ED on 03/16/2024 for opiate detoxification. Hospital course as noted below. Discharged home in stable condition on 03/19. 1. Opiate abuse with desire for detoxification ? Treated with buprenorphine taper with other as needed medications per opiate withdrawal order set. Encouraged opiate cessation. Addiction medicine followed. Patient discharged home with plan for outpatient therapy with 180 post discharge. 2. Polysubstance abuse ? Patient reported chronic methamphetamine abuse and cannabis use. UDS on admit positive for amphetamines, cannabinoids and benzodiazepines. Treated withdrawal as noted above, otherwise supportive care indicated. Encouraged cessation on discharge. 3. Tobacco abuse ? Current smoker, 1 pack/day. Nicotine patch provided while inpatient per patient request. 4. Mild hypokalemia and hypophosphatemia, improved ? Potassium 3.3, phosphorus 2.0 on admit. Repleted as needed. 5. Mild normocytic anemia ? Hemoglobin 12.4 on admit, decreased to 11.3 on hospital day 2 after IV fluid administration. Suspect mild chronic anemia from IV drug use as noted above. No need to monitor further CBCs. 6. Mild constipation ? Presumed secondary to opiate abuse. Treated with Senna and MiraLAX as needed. Chronic medical conditions: ? History of infective endocarditis/tricuspid valve apparatus vegetation: Admitted here in June 2020 for fevers, was found to have infective endocarditis. Was transferred to [facility] for further management. Per [facility] records, appears that the GRICELDA done there showed a thickened tricuspid valve but no evidence of endocarditis so he was just treated with antibiotics and did not require any procedures. No murmur noted on exam on this admission, no concern for recurrent endocarditis. ? History of chronic hepatitis C: Continue outpatient GI follow-up. ? History of paranoid schizophrenia: Not currently on any treatment, recommend outpatient follow-up with psychiatry. Total clinical time spent by myself addressing the patient's medical issues, reviewing all the data, and collaborating with patient's care team: 35 minutes. Physical Exam Const alert, oriented x3, no apparent distress and average body habitus Constitutional Narrative: Pleasant middle-age male, mildly fatigued appearing, otherwise laying comfortably in bed, conversing normally, no acute distress. General Appearance: cooperative and comfortable HEENT normocephalic, head/scalp atraumatic, hearing grossly normal bilaterally, nasal mucous membranes and turbinates normal and moist oral mucous membranes Eyes PERRL, EOMs intact bilaterally and conjunctivae normal Neck full ROM Chest inspection of chest normal Resp normal respiratory effort, normal air movement, no use of accessory muscles and clear to auscultation bilaterally Cardio regular rate, regular rhythm, no murmurs and peripheral pulses 2+ throughout GI normal to inspection, nondistended, normoactive bowel sounds, soft to palpation, non-tender and non-distended Back/Spine normal ROM Extremity normal to inspection, full ROM and no pedal edema Skin no rashes or lesions noted Neuro moves all extremities and no focal motor deficits Speech: speech normal Psych mental status grossly normal Weight / BMI Weight Weight: 89.6 kg Body Mass Index (BMI) 29.1 ABG / Lab / Microbiology Data 03/17/24 08:00 03/17/24 08:00 D/C Instructions Discharge Diet: No restrictions Meaningful Use Info Meaningful Use Meaningful Use Diagnoses (Choose all that apply): None applicable Ischemic Stroke Statin Dosing Therapy Reference: STATIN DOSE THERAPY REFERENCE: * Patients > 75 years receive moderate or high dose statin therapy. * Patients 75 years or YOUNGER should receive HIGH intensity statin dose unless contraindicated. You will be required to document reason for non-treatment if statin daily dose does not meet guidelines. HIGH DOSE STATIN THERAPY DAILY Atorvastatin > than or = to 40 mg Rosuvastatin > than or = to 20 mg Amlodipine + Atorvastatin > than or = to 2.5/40 mg Ezetimibe + Simvastatin 10/80 mg Simvastatin 80mg Discharge Plan Admission Admit Date/Time: 03/16/24 19:42 Primary Reason for Your Visit: Opiate withdrawal Attending Provider: Barron Camara Primary Care Provider: Care Physician,No Primary Consulting Providers: Elkni Garcia Discharge Orders/Prescriptions Prescriptions: New senna 8.6 mg capsule 8.6 mg PO BID PRN (Reason: constipation) 7 Days Qty: 14 0RF polyethylene glycol 3350 [Miralax] 17 gram/dose powder 17 g PO DAILY 7 Days Qty: 119 0RF Referrals / Follow Up: Care Physician,No Primary [Primary Care Provider] - Disposition Disposition (needs filled in before D/C Order can be placed): Home, Self Care Charges/Coding Visit Charges Inpatient E&M: 00572 Disch Hosp >30min
[2024-03-19 12:58] VITALS: BP 108/66; PULSE 88; RESP 16; TEMP 36.5; O2SAT 99
== END 2024-03-19 12:30 | disposition home or self-care (01) | DRG 773 ==
LOC: ED 18:30 → MS3 20:03
PROVIDERS: Admitting Provider Internal Medicine; Emergency Provider Emergency Medicine; Visit Provider Hospitalist
DX: F11.23 Opioid dependence with withdrawal (principal); E83.39 Other disorders of phosphorus metabolism; F20.0 Paranoid schizophrenia; F15.20 Other stimulant dependence, uncomplicated; D64.9 Anemia, unspecified; F12.90 Cannabis use, unspecified, uncomplicated; F17.210 Nicotine dependence, cigarettes, uncomplicated; E87.6 Hypokalemia; F17.290 Nicotine dependence, other tobacco product, uncomplicated
CPT/HCPCS: 80048; 80307; 80320; 83735; 84100; 85025; 85027; 85610; 99283; 99406; G0480

== ENCOUNTER 2024-11-04 22:30 | Emergency (ER) | payer MEDICAID, SELFPAY ==
[2024-11-04 22:30] VITALS: BP 144/90; PULSE 125; RESP 18; TEMP 36.8; O2SAT 100; BMI 26.6
--- NOTE | 2024-11-04 23:23 | CT_ITS ---
PROCEDURE: CT angiogram of the right lower extremity with IV contrast REASON FOR EXAM: Possible vascular occlusion. Right great toe numbness after muscle spasm days ago. TECHNIQUE: After the administration of intravenous contrast, contiguous axial CT images were obtained through the right lower extremity, from just above the knee through the toes. Sagittal and coronal reformats were created. Maximum intensity projection images were created and reviewed. COMPARISON: None available FINDINGS: The included osseous structures of the right lower extremity, from the distal femur through the toes are grossly intact. No soft tissue mass or drainable fluid collection of the right lower extremity. The included popliteal artery through the tibioperoneal trunk are patent. There is three-vessel runoff below the right knee. Please note that evaluation of the arterial vascular structures below the level of the ankle is significantly limited. CT/CTA LWR EXTR W/O & W/DYE IMPRESSION: No evidence of large vessel arterial occlusion of the below knee right lower ex tremity. Detail is limited below the level of the right ankle. The included osseous structures and soft tissues of the right lower extremity s how no specific abnormality. One or more dose reduction techniques were used (e.g., Automated exposure contr ol, adjustment of the mA and/or kV according to patient size, use of iterative reconstruction technique). Reading Location: [facility]
[2024-11-04] MEDS: 0.9% Normal Saline (1000mL) 1,000 ML 999 ML IV (23:42)
[2024-11-05 00:07] LABS: Absolute Lymphocyte Count 1.13 X10^3/uL (0.83-4.51); Absolute Neutrophil Count 2.9 X10^3/uL (2.0-7.7); Basophil# 0.02 X10^3/uL; Basophil% 0.4 % (0-1); Eosinophil# 0.04 X10^3/uL; Eosinophils% 0.9 % (0-5); Hematocrit 35.7 % (40-54); Hemoglobin 11.5 g/dL (13.0-16.5); International Normalized Ratio 1.1; Lymphocyte # 1.13 X10^3/ul (0.83-4.51); Lymphocyte % 24.7 % (19-41); Mean Corp Hgb Conc 32.2 g/dL (32-36); Mean Corpuscular Hgb 26.7 pg (27.0-32.0); Mean Corpuscular Volume 82.8 fL (80-94); Mean Platelet Vol. 9.4 fl (6.2-12.0); Monocyte# 0.41 X10^3/uL; NRBC Flagged by Analyzer 0 % (0-5); Neutrophil # 2.92 X10^3/uL (2.7-7.7); Neutrophil % 63.9 % (47-70); Platelet Count 321 K/mm3 (150-450); Prothrombin Time (Protime)PT. 14.2 SECONDS (11.7-14.9); RBC Distribution Width CV 13.5 % (11.6-14.6); RBC Distribution Width SD 41.4 fl (35.1-43.9); Red Blood Count 4.31 M/mm3 (4.6-6.2); White Blood Count 4.6 K/mm3 (4.4-11.0)
[2024-11-05 00:08] LABS: Partial Thromboplast Time 30.9 Seconds (24.1-36.2)
[2024-11-05 00:12] LABS: Anion Gap 8 (5-15); BUN 16 mg/dL (7-18); BUN/Creat Ratio 18.3 RATIO (10-20); Calcium,Total 9.2 mg/dL (8.5-10.1); Chloride 107 mmol/L (98-107); Creatinine, Serum 0.87 mg/dL (0.70-1.30); EST Glomerular Filtration Rate 103 mL/min (>60); Est Glom Filt Rate - Afr Amer 124 mL/min (>60); Estimated Creatinine Clearance 112.87 ml/min; Glucose 107 mg/dL (74-106); Potassium 3.6 mmol/L (3.5-5.1); Sodium Level 141 mmol/L (136-145)
[2024-11-05 00:19] LABS: Lactic Acid 1.3 mmol/L (0.4-1.9)
--- NOTE | 2024-11-05 00:50 | EDS_ITS ---
HPI History of Present Illness Chief Complaint: Lower Extremity Injury Informant: patient Narrative Narrative: Patient is a 39-year-old male with past medical history of polysubstance abuse and tobacco use. He states over the past 5 days he has felt cramping in his right calf and noticed that his great toe feels numb and tingly. He states that there has been no trauma. He denies any fevers or chills. He states that he has been giving symptoms time to resolve and has not done so so therefore he presents for evaluation. 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) Chronic dental pain Acute opioid withdrawal Home Medications ?Medication ?Instructions ?Recorded ?Last Taken ?Type polyethylene glycol 3350 17 17 g PO DAILY 7 days #119 grams 03/19/24 Unknown Rx gram/dose oral powder (Miralax) sennosides 8.6 mg capsule (senna) 8.6 mg PO BID PRN co nstipation 7 03/19/24 Unknown Rx days #14 caps Allergy/AdvReac Type Severity Reaction Status Date / Time Penicillins (PCN) Allergy Swelling Verified 11/04/24 22:32 Sulfa (Sulfonamide Allergy Swelling Verified 11/04/24 22:32 Antibiotics) Social History Smoking Status: Current every day smoker tobacco type: cigarettes and e- cigarettes ROS ROS ED Constitutional Constitutional ED: Denies chills or fever(s) Eyes Eyes: Denies blurry vision or change in vision ENT ENT ED: Denies sore throat Cardiovascular Cardiovascular: Denies chest pain, palpitations or racing heartbeat Respiratory/Chest Respiratory/Chest: Denies cough or dyspnea Gastrointestinal Gastrointestinal: Denies abdominal pain, diarrhea, nausea or vomiting Genitourinary Genitourinary ED: Denies dysuria Musculoskeletal Musculoskeletal: Reports other Details: Positive right foot pain Integumentary Denies rash Neurologic Neurologic: Reports paresthesias; Denies headache(s) Hematologic/Lymphatic Hematologic/Lymphatic: Denies easy bleeding or easy bruising EXAM Physical Exam Const Vital Signs: 11/04/24 22:30 Temperature 98.2 F Temperature Source Oral Pulse Rate 125 H Respiratory Rate 18 Blood Pressure 144/90 H Blood Pressure Mean 108 Pulse Ox 100 Oxygen Delivery Method Room Air Positive well nourished and well developed General Appearance ED: well developed HEENT HEENT Narrative: Normocephalic atraumatic Eyes PERRL and EOMs intact bilaterally General Eye ED: Negative for scleral icterus Neck supple Neck Narrative: No nuchal rigidity or meningeal signs Resp normal respiratory effort and clear to auscultation bilaterally Cardio regular rhythm Rate: tachycardic and other Other Details: Tachycardic rate with regular rhythm No murmurs rubs or gallops noted Extremity Extremity Narrative: Exam displays that the patient's capillary refill to the distal right foot/toes is delayed/at 3 seconds compared to the left lower extremity/foot which is less than 1 second. There is also temperature variation noted as the left foot is warm where the right foot from midfoot down is cool to touch. However the right foot still has a +1 dorsalis pedis pulse in the left foot has a normal +2 dorsalis pedis pulse There is no asymmetric edema or pitting edema Negative Homans' sign bilaterally Patient still has full active range of motion of the right lower leg/foot He describes paresthesias but can still differentiate between soft and sharp sensation in the lower extremity on the right Neuro oriented x3, CN's II-XII intact bilaterally and no sensory deficits noted Sensorium / Orientation: alert Motor Exam: strength 5/5 throughout Psych mental status grossly normal Skin no rashes or lesions noted Skin Narrative: Delayed capillary refill and temperature variation of the right foot compared to left No splinter hemorrhages or Janeway lesions noted Remainder of the exam is normal MDM MDM MDM Narrative Medical decision making narrative: Patient arrived to the ER hypertensive and tachycardic. He reported 5 days of foot numbness/tingling. However on physical exam he can still differentiate between soft and sharp sensation in dermatomes of the lower extremity. Physical exam does show delayed capillary refill diminished pulse and temperature radiation of the right foot compared to left concerning for peripheral arterial disease. Chart review reveals the patient has a history of endocarditis of the tricuspid valve 5 years ago. He denies IV drug use at this time. He does not have splinter hemorrhages or Janeway lesions to suggest this is secondary to endocarditis either and no murmur was noted on exam. In order to ensure this is not a clinically significant Simran abnormality or severe stenosis or obstruct ion of his vascular system I elected to check basic labs as well as a CTA with runoff of the right lower extremity, labs revealed no signs of acute kidney injury or clinically significant Simran abnormality and lactic acid is normal going against tissue hypoxia. CTA revealed no obvious signs of stenosis or obstruction. Therefore at this time he will be advised to take an aspirin and can follow-up with vascular surgery on an outpatient basis to discuss further testing or treatment options but as workup reveals no signs of acute infection such as osteomyelitis or cellulitis physical exam does not suggest endocarditis and CTA is not showing true obstruction/vascular occlusion he is otherwise safe for discharge History & Record Review Discussion w/independent historian: Patient Lab Data Attestation: I reviewed the patient's lab results. Labs: Laboratory Results - last 24 hr 11/04/24 23:42 WBC 4.6 RBC 4.31 L Hgb 11.5 L Hct 35.7 L MCV 82.8 MCH 26.7 L MCHC 32.2 RDW Std Deviation 41.4 RDW Coeff of Saul 13.5 Plt Count 321 MPV 9.4 Immature Gran % (Auto) 1.100 H Neut % (Auto) 63.9 Lymph % (Auto) 24.7 [place] % (Auto) 9.0 Eos % (Auto) 0.9 Baso % (Auto) 0.4 Absolute Neuts (auto) 2.9 Absolute Lymphs (auto) 1.13 Nucleated RBC % 0 PT 14.2 INR 1.1 APTT 30.9 Sodium 141 Potassium 3.6 Chloride 107 Carbon Dioxide 26.0 Anion Gap 8 BUN 16 Creatinine 0.87 Estim Creat Clear Calc 112.87 Est GFR (MDRD) Af Amer 124 Est GFR (MDRD) Non-Af 103 BUN/Creatinine Ratio 18.3 Glucose 107 H Lactic Acid 1.3 Calcium 9.2 Radiography Diagnostic Testing: Clinical Impression(s) from Imaging Studies Lower Extremity CTA 11/04/24 23:23 IMPRESSION: No evidence of large vessel arterial occlusion of the below knee right lower extremity. Detail is limited below the level of the right ankle. The included osseous structures and soft tissues of the right lower extremity show no specific abnormality. One or more dose reduction techniques were used (e.g., Automated exposure control, adjustment of the mA and/or kV according to patient size, use of iterative reconstruction technique). Reading [facility] Dis[facility] Plan Triage Chief Complaint: Lower Extremity Injury ED Provider: Joseph Taylor Dx/Rx/DC Orders Clinical Impression: PAD (peripheral artery disease), Tobacco abuse, Polysubstance use disorder Instructions: PAD Dc, PAD Walking Program Prescriptions: No Action senna 8.6 mg capsule 8.6 mg PO BID PRN (Reason: constipation) 7 Days Qty: 14 0RF polyethylene glycol 3350 [Miralax] 17 gram/dose powder 17 g PO DAILY 7 Days Qty: 119 0RF Primary Care Provider: Care Physician,No Primary Referrals: Amauri Pinedo MD [Med Staff - Active Staff] - 1-2 Weeks Care Physician,No Primary [Primary Care Provider] - Activity Restrictions/Additional Instructions: Please take a full-strength aspirin daily to help with improved circulation and blood flow. Please try to reduce or quit smoking as this will also help improve blood flow. Follow-up with vascular surgery to discuss any potential further testing or treatment options and return to the ER should you have any further concerns Print Language: Chilean Disposition Disposition: Home, Self Care Discharge Date/Time: 11/05/24 01:03
== END 2024-11-05 01:03 | disposition home or self-care (01) ==
PROVIDERS: Emergency Provider Emergency Medicine; Visit Provider Emergency Medicine
DX: I73.9 Peripheral vascular disease, unspecified (principal); F17.210 Nicotine dependence, cigarettes, uncomplicated; F17.290 Nicotine dependence, other tobacco product, uncomplicated; R20.2 Paresthesia of skin; F19.90 Other psychoactive substance use, unspecified, uncomplicated; M79.671 Pain in right foot
CPT/HCPCS: 73706; 80048; 83605; 85025; 85610; 85730; 96360; 99282; Q9967; A4216

== ENCOUNTER 2024-12-24 18:11 | Emergency (ER) | payer MEDICAID, SELFPAY ==
[2024-12-24 18:12] VITALS: BP 127/98; PULSE 107; RESP 16; TEMP 37.1; O2SAT 98; BMI 25.4
--- NOTE | 2024-12-24 18:25 | EDS_ITS ---
HPI HPI - URI History of Present Illness Chief Complaint: Ear Problem Informant: patient Onset/Context/Timing Onset: Today Context: Gradual Onset Timing: Continuous Current Severity: Mild Maximum Severity: Mild Narrative Narrative: 39-year-old male history of polysubstance abuse and hep C. Patient had his ears pierced about 2 months ago. The current hearing in his left ear has been in about a month. He just wanted taken out today and noticed that the back of the earring is now underneath the skin and he cannot remove it. He said prior to that he was not having any pain. No redness, swelling or discharge. Prior similar symptoms: No Recent Illness/Hospitalization: No ROS ROS ED ROS Narrative Denies recent illness. Constitutional Constitutional ED: Denies chills or fever(s) Eyes Eyes: Denies blurry vision ENT ENT ED: Denies ear pain Cardiovascular Cardiovascular: Denies chest pain Respiratory/Chest Respiratory/Chest: Denies cough or dyspnea Gastrointestinal Gastrointestinal: Denies abdominal pain Genitourinary Genitourinary ED: Denies dysuria or hematuria Musculoskeletal Musculoskeletal: Denies arthralgias Integumentary Denies abscess Neurologic Neurologic: Denies headache(s) Psychiatric Psychiatric: Denies anxiety or depression Endocrine Endocrinology: Denies cold intolerance Hematologic/Lymphatic Hematologic/Lymphatic: Denies easy bleeding, easy bruising or lymphadenopathy Allergic/Immunologic Allergic/Immunologic ED: Denies mouth swelling, tongue swelling or urticaria [facility] Medical History Polysubstance abuse Tobacco abuse Chronic hepatitis C 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) Chronic dental pain Acute opioid withdrawal Home Medications ?Medication ?Instructions ?Recorded ?Last Taken ?Type polyethylene glycol 3350 17 17 g PO DAILY 7 days #119 grams 03/19/24 Unknown Rx gram/dose oral powder (Miralax) sennosides 8.6 mg capsule (senna) 8.6 mg PO BID PRN co nstipation 7 03/19/24 Unknown Rx days #14 caps cephalexin 500 mg capsule 500 mg PO Q12 5 days #10 CAP SULES 12/24/24 Unknown Rx Allergy/AdvReac Type Severity Reaction Status Date / Time Penicillins (PCN) Allergy Swelling Verified 12/24/24 18:12 Sulfa (Sulfonamide Allergy Swelling Verified 12/24/24 18:12 Antibiotics) Family History no significant family his Social History Smoking Status: Current every day smoker tobacco type: cigarettes and e- cigarettes EXAM Physical Exam Narrative Exam Narrative: Well-appearing 39-year-old male. Sitting upright in bed. Vital signs stable afebrile. H EENT exam pupils round reactive light. Limited poor dentition. Missing teeth. Moist mucous membranes. Patient has large earrings in both ears. There is stud type earrings. The left 1 the back fastener of the earring has retracted underneath the skin. I am have the nurses try to remove it. There is no pus or redness. Not particularly tender or significantly swollen. There is mild swelling. Neck nontender. Lungs clear. Heart regular rhythm no murmur. Abdomen soft nontender. Chest wall nontender. Moving all 4 extremities. Nontender no edema. He is awake and alert. Const Vital Signs: 12/24/24 18:12 Temperature 98.7 F Temperature Source Oral Pulse Rate 107 H Respiratory Rate 16 Blood Pressure 127/98 H Blood Pressure Mean 107 Pulse Ox 98 Oxygen Delivery Method Room Air Positive well nourished and well developed; Negative for obese, cachectic or contractures General Appearance ED: well developed and NAD; Negative for cachectic, contractures, cyanotic, diaphoretic or pallor Nutritional Appearance: Negative for cachectic or obese HEENT Reports moist mucous membranes HEENT Narrative: Left stud earring the back fastener is embedded underneath the skin. No pus. No redness. Minimal swelling. normocephalic Eyes PERRL and EOMs intact bilaterally General Eye ED: Negative for pale conjunctiva Neck no lymphadenopathy, supple, no meningeal signs and no JVD General: Negative for anterior neck swelling or lymphadenopathy Resp normal respiratory effort and clear to auscultation bilaterally Cardio S1 normal heart sound, S2 normal heart sound and no murmurs Rate: regular rate Rhythm: regular rhythm GI non-tender, non-distended and no masses Palpation: soft; Negative for tender or guarding Back/Spine no CVA tenderness and normal ROM General Back: Negative for CVA tenderness Cervical Spine: Negative for cervical spine tenderness Thoracic Spine / Upper Back: Negative for thoracic spinal tenderness Lumbar Spine / Lower Back: Negative for lumbar spinal tenderness Extremity normal to inspection and full ROM Neuro oriented x3 and CN's II-XII intact bilaterally Sensorium / Orientation: alert and oriented to person Motor Exam: strength 5/5 throughout Psych mental status grossly normal Mood & Affect: Negative for depressed, anxious or tearful Skin General Skin Exam: Negative for jaundice or pallor Lesions: no lesions Rashes: no rashes MDM MDM MDM Narrative Medical decision making narrative: 39-year-old male who had his ears pierced about a 2 months ago. The current earring in the left has been in a month. He just went to take it out today was not having any complaints. No pain nor redness nor pus. And he could not get it out he thinks the back fastener part of it is embedded underneath the skin. We were able to take the earring out but we think the back fastener is embedded under the skin. Area will be anesthetized and I will try to remove the foreign body. History & Record Review Discussion w/independent historian: Patient Procedures Other Procedures Procedure(s): Left ear was stuck in the earlobe. We were unable to push it through. Area was cleaned with Shur-Clens. Washed with saline. We locally anesthetized the area. I made a small half centimeter incision. We were able to get the piece out and remove the earring. Patient tolerated well. He was instructed leave it out. Ice to decrease pain and swelling. Tylenol Motrin. Antibiotic ointment. Clean daily. Keflex twice a day for 5 days to try to p revent infection. Follow-up as needed. Left earlobe foreign body removal. Discharge Plan Triage Chief Complaint: Ear Problem ED Provider: Murali Del Toro Dx/Rx/DC Orders Clinical Impression: H/O retained foreign body fully removed Prescriptions: New cephalexin 500 mg capsule 500 mg PO Q12 5 Days Qty: 10 0RF No Action senna 8.6 mg capsule 8.6 mg PO BID PRN (Reason: constipation) 7 Days Qty: 14 0RF polyethylene glycol 3350 [Miralax] 17 gram/dose powder 17 g PO DAILY 7 Days Qty: 119 0RF Primary Care Provider: Care Physician,No Primary Referrals: Care Physician,No Primary [Primary Care Provider] - Activity Restrictions/Additional Instructions: Motrin and Tylenol for pain. Clean the area of your left earlobe daily with soap and water peroxide and water to prevent infection. Apply antibiotic ointment daily. The antibiotic Keflex 1 pill 3 times a day for 3 days help try to prevent infection. Do not put the earring back in at this time it will increase the risk of infection and get stuck again. Wait to the swelling goes down and follow-up with your person that pierced her ear. Print Language: Indonesian Disposition Disposition: Home, Self Care
[2024-12-24 19:09] VITALS: BP 127/98; PULSE 107; RESP 16; TEMP 37.1; O2SAT 98
--- NOTE | 2024-12-24 19:12 | ED.RN ---
Lidocaine 1% with epi pulled from [facility] and administered per Dr Del Toro. Unable to find the correct dosage in order form.
== END 2024-12-24 19:15 | disposition home or self-care (01) ==
PROVIDERS: Emergency Provider Emergency Medicine; Visit Provider Emergency Medicine
DX: T16.2XXA Foreign body in left ear, initial encounter (principal); F17.210 Nicotine dependence, cigarettes, uncomplicated; F17.290 Nicotine dependence, other tobacco product, uncomplicated; W44.E4XA Non-magnetic metal jewelry entering into or through a natural orifice, initial encounter
CPT/HCPCS: 10120; 99282

== ENCOUNTER 2025-03-26 11:32 | Emergency (ER) | payer MEDICAID, SELFPAY ==
[2025-03-26 11:32] VITALS: BP 128/70; PULSE 78; RESP 18; TEMP 36.8; O2SAT 98; BMI 25.1
[2025-03-26] MEDS: Ketorolac 15 MG/ML Vial IM (11:43)
[2025-03-26] MEDS: Clindamycin HCl 150 MG Capsule 450 MG PO (11:43)
--- NOTE | 2025-03-26 11:43 | ED.VIS.DENTA ---
HPI <SARAH Black - Last Filed: 03/26/25 11:54> History of Present Illness Chief Complaint: Dental Narrative Narrative: 39-year-old male has very bad dentition and presents with 2 days of right sided dental pain. He feels like the pain is starting to radiate towards his ear. He has no fever or chills. No nausea or vomiting. No difficulty swallowing or breathing. 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) Chronic dental pain Acute opioid withdrawal Home Medications ?Medication ?Instructions ?Recorded ?Last Taken ?Type polyethylene glycol 3350 17 17 g PO DAILY 7 days #119 grams 03/19/24 Unknown Rx gram/dose oral powder (Miralax) sennosides 8.6 mg capsule (senna) 8.6 mg PO BID PRN constipation 7 03/19/24 Unknown Rx days #14 caps cephalexin 500 mg capsule 500 mg PO Q12 5 days #10 CAPSULES 12/24/24 Unknown Rx clindamycin HCl 150 mg capsule 450 mg (3 x 150 mg) PO TID 7 days 03/26/25 Unknown Rx (Cleocin HCl) #63 caps Allergy/AdvReac Type Severity Reaction Status Date / Time Penicillins (PCN) Allergy Swelling Verified 03/26/25 11:33 Sulfa (Sulfonamide Allergy Swelling Verified 03/26/25 11:33 Antibiotics) Social History Smoking Status: Current every day smoker tobacco type: cigarettes and e-cigarettes ROS <SARAH Black - Last Filed: 03/26/25 11:54> ROS ED ROS Narrative Constitutional: Negative for fever, chills, malaise. GI: Negative for nausea, vomiting. Neuro: Negative for headache. EXAM <SARAH Black - Last Filed: 03/26/25 11:54> Physical Exam Narrative Exam Narrative: CONST: Patient sitting in no acute distress. EYES: Normal inspection. ENT: Poor dentition with multiple missing and broken teeth, multiple teeth eroded down to the gumline. Tender to palpation over the right lower molars. Gingival irritation but no periapical abscess. No trismus or tongue elevation. Sublingual space is soft. Normal posterior oropharynx. No stridor or drooling. NECK: Normal inspection. Trachea midline. No lymphadenopathy. RESP: No respiratory distress, CTAB. CVS: Regular rate and rhythm, no murmur, no gallop. SKIN: Color normal, no rash, warm, dry, intact. EXTREMITIES: Normal appearance, no pedal edema. NEURO: Alert and answering questions appropriately. PSYCH: Normal affect. Const Vital Signs: 03/26/25 11:32 03/26/25 11:47 Temperature 98.3 F 98.3 F Temperature Source Oral Pulse Rate 78 74 Respiratory Rate 18 17 Blood Pressure 128/70 H 127/80 H Blood Pressure Mean 89 95 Pulse Ox 98 98 <Dr. Murali Del Toro MD - Last Filed: 03/26/25 11:47> Physical Exam Const Vital Signs: 03/26/25 11:32 03/26/25 11:47 Temperature 98.3 F 98.3 F Temperature Source Oral Pulse Rate 78 74 Respiratory Rate 18 17 Blood Pressure 128/70 H 127/80 H Blood Pressure Mean 89 95 Pulse Ox 98 98 MDM <SARAH Black - Last Filed: 03/26/25 11:54> [facility] MDM Narrative Medical decision making narrative: Differential includes dental caries, dental abscess, Abel's angina I have personally performed a face to face assessment of the patient and have reviewed the JOYA Note. I performed a substantive portion of the visit including all aspects of the following. My izaguirre findings include: History is 39-year-old male history of polysubstance abuse. Complaining of right lower jaw dental pain. Last 2 days. Currently not seeing a dentist. Denies trouble swallowing or breathing. Exam is [39-year-old male vital signs stable afebrile. HEENT exam pupils round react light. Moist pink membranes. Very poor dentition both lower molars are very decayed to the gumline. There is gingival swelling. No abscess. No trismus. No Abel's angina. No facial swelling. Able to open and close his mouth any difficulty. No trouble swallowing or breathing. Neck nontender no lymphadenopathy. Lungs clear to auscultation bilaterally. Heart regular rhythm no murmur. Abdomen soft. Moving all 4 extremities. Otherwise exam benign.] Medical Decision Making [patient discharged to home given a dose of clindamycin here. IM Toradol for pain. And a prescription for clindamycin. Outpatient follow-up with a dentist] Other additions or changes: [None] <Dr. Murali Del Toro MD - Last Filed: 03/26/25 11:47> [facility] Narrative Medical decision making narrative: I have personally performed a face to face assessment of the patient and have reviewed the JOYA Note. I performed a substantive portion of the visit including all aspects of the following. My izaguirre findings include: History is 39-year-old male history of polysubstance abuse. Complaining of right lower jaw dental pain. Last 2 days. Currently not seeing a dentist. Denies trouble swallowing or breathing. Exam is [39-year-old male vital signs stable afebrile. HEENT exam pupils round react light. Moist pink membranes. Very poor dentition both lower molars are very decayed to the gumline. There is gingival swelling. No abscess. No trismus. No Abel's angina. No facial swelling. Able to open and close his mouth any difficulty. No trouble swallowing or breathing. Neck nontender no lymphadenopathy. Lungs clear to auscultation bilaterally. Heart regular rhythm no murmur. Abdomen soft. Moving all 4 extremities. Otherwise exam benign.] Medical Decision Making [patient discharged to home given a dose of clindamycin here. IM Toradol for pain. And a prescription for clindamycin. Outpatient follow-up with a dentist] Other additions or changes: [None] History & Record Review Discussion w/independent historian: Patient Additional record(s) reviewed:: Prior inpatient record, Prior outpatient record, Prior ED visit and Prior labs Discharge Plan Triage Chief Complaint: Dental ED Midlevel Provider: Indira Corado ED Provider: Murali Del Toro Dx/Rx/DC Orders Clinical Impression: Dental caries, Dental abscess Instructions: Dental Abscess Prescriptions: New clindamycin HCl [Cleocin HCl] 150 mg capsule 450 mg PO TID 7 Days Qty: 63 0RF No Action senna 8.6 mg capsule 8.6 mg PO BID PRN (Reason: constipation) 7 Days Qty: 14 0RF polyethylene glycol 3350 [Miralax] 17 gram/dose powder 17 g PO DAILY 7 Days Qty: 119 0RF cephalexin 500 mg capsule 500 mg PO Q12 5 Days Qty: 10 0RF Primary Care Provider: Care Physician,No Primary Referrals: [facility] [Provider Group] Care Physician,No Primary [Primary Care Provider] - Activity Restrictions/Additional Instructions: You have very bad dental decay and an infection. Take all of the antibiotics as prescribed. Every 6 hours you can take ibuprofen 600 mg and Tylenol 1000 mg for pain. Those are [id number] medications. It is important you follow-up with a dentist. You can call the [facility] for an appointment. Print Language: Greenlandic Disposition Disposition: Home, Self Care
[2025-03-26 11:47] VITALS: BP 127/80; PULSE 74; RESP 17; TEMP 36.8; O2SAT 98
--- OUTSIDE RECORDS SUMMARY | 2025-03-26 11:55 | XMS RPT_ITS | CCD ---
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 Positive well nourished and well developed; Negative for obese, cachectic or contractures General Appearance ED: well developed and NAD; Negative for cachectic, contractures, cyanotic, diaphoretic or pallor Nutritional Appearance: Negative for cachectic or obese HEENT Reports moist mucous membranes HEENT Narrative: Left stud earring the back fastener is embedded underneath the skin. No pus. No redness. Minimal swelling. normocephalic Eyes PERRL and EOMs intact bilaterally General Eye ED: Negative for pale conjunctiva Neck no lymphadenopathy, supple, no meningeal signs and no JVD General: Negative for anterior neck swelling or lymphadenopathy Resp normal respiratory effort and clear to auscultation bilaterally Cardio S1 normal heart sound, S2 normal heart sound and no murmurs Rate: regular rate Rhythm: regular rhythm GI non-tender, non-distended and no masses Palpation: soft; Negative for tender or guarding Back/Spin (more content not included)... Normal [facility] Basic Metabolic Profile (BMP )on 11-05-2024 BUN/CRE 18.3 RATIO Normal 10-20 [facility] Comment on above: Performed By: #### L 100.0100, L300.4310, L500.2500, L300.3900, L503.6005 ####[facility] [address] [place], [address] CA,Total 9.2 mg/dL Normal 8.5-10.1 [facility] Comment on above: Performed By: #### L 100.0100, L300.4310, L500.2500, L300.3900, L503.6005 ####[facility] [address] [place], [address] Chloride [Moles/Vol] 107 mmol/L Normal 98-107 [facility] Comment on above: Performed By: #### L 100.0100, L300.4310, L500.2500, L300.3900, L503.6005 ####[facility] [address] [place], [address] CO2 [Moles/Vol] 26.0 mmol/L Normal 21.0-32.0 [facility] Comment on above: Performed By: #### L 100.0100, L300.4310, L500.2500, L300.3900, L503.6005 ####[facility] [address] [place], [address] Creatinine [Mass/Vol] 0.87 mg/dL Normal 0.70-1.30 [facility] Comment on above: Result Comment: The validity of the calculated GFR GFRAA in patients over 70 years has not been determined. Clinical correlation is essential. Performed By: #### L 100.0100, L300.4310, L500.2500, L300.3900, L503.6005 ####[facility] [address] [place], [address] ECRCL 112.87 ml/min Normal [facility] Comment on above: Performed By: #### L 100.0100, L300.4310, L500.2500, L300.3900, L503.6005 ####[facility] [address] [place], [address] EST GFR - AA 124 mL/min Normal >60 [facility] Comment on above: Result Comment: Afri can Indian GFR Calc Performed By: #### L 100.0100, L300.4310, L500.2500, L300.3900, L503.6005 ####[facility] [address] [place], [address] GAP 8 Normal 5-15 [facility] Comment on above: Performed By: #### L 100.0100, L300.4310, L500.2500, L300.3900, L503.6005 ####[facility] [address] [place], [address] GFR/1.73 sq M.predicted among non-blacks MDRD (S/P/Bld) [Vol rate/Area] 103 mL/min/{1.73_m2} Normal >60 [facility] Comment on above: Result Comment: Non- GFR Calc Performed By: #### L 100.0100, L300.4310, L500.2500, L300.3900, L503.6005 ####[facility] [address] [place], [address] Glucose [Mass/Vol] 107 mg/dL High 74-106 [facility] Comment on above: Result Comment: Fast ing Glucose result from 100 to 125 mg/dL suggests IMPAIRED HOMEOSTASIS per A.D.A. criteria. Performed By: #### L 100.0100, L300.4310, L500.2500, L300.3900, L503.6005 ####[facility] [address] [place], [address] Potassium [Moles/Vol] 3.6 mmol/L Normal 3.5-5.1 [facility] Comment on above: Performed By: #### L 100.0100, L300.4310, L500.2500, L300.3900, L503.6005 ####[facility] [address] [place], [address] Sodium [Moles/Vol] 141 mmol/L Normal 136-145 [facility] Comment on above: Performed By: #### L 100.0100, L300.4310, L500.2500, L300.3900, L503.6005 ####[facility] [address] [place], [address] Urea nitrogen [Mass/Vol] 16 mg/dL Normal 7-18 [facility] Comment on above: Performed By: #### L 100.0100, L300.4310, L500.2500, L300.3900, L503.6005 ####[facility] [address] [place], [address] CBC W/Diff, Automatedon 02-0 8-2024 Absolute Lymph 1.13 X10 3/uL Normal 0.83-4.51 [facility] Comment on above: Performed By: #### L 100.0100, L300.4310, L500.2500, L300.3900, L503.6005 ####[facility] [address] [place], [address] Absolute Neut 2.9 X10 3/uL Normal 2.0-7.7 [facility] Comment on above: Performed By: #### L 100.0100, L300.4310, L500.2500, L300.3900, L503.6005 ####[facility] [address] [place], [address] Basophils/100 WBC (Bld) 0.4 % Normal 0-1 [facility] Comment on above: Performed By: #### L 100.0100, L300.4310, L500.2500, L300.3900, L503.6005 ####[facility] [address] [place], [address] Eosinophils/100 WBC (Bld) 0.9 % Normal 0-5 [facility] Comment on above: Performed By: #### L 100.0100, L300.4310, L500.2500, L300.3900, L503.6005 ####[facility] [address] [place], [address] Erythrocyte distribution width (RBC) [Ratio] 13.5 % Normal 11.6-14.6 [facility] Comment on above: Performed By: #### L 100.0100, L300.4310, L500.2500, L300.3900, L503.6005 ####[facility] [address] [place], [address] Hematocrit (Bld) [Volume fraction] 35.7 % Low 40-54 [facility] Comment on above: Performed By: #### L 100.0100, L300.4310, L500.2500, L300.3900, L503.6005 ####[facility] [address] [place], [address] Hemoglobin (Bld) [Mass/Vol] 11.5 g/dL Low 13.0-16.5 [facility] Comment on above: Performed By: #### L 100.0100, L300.4310, L500.2500, L300.3900, L503.6005 ####[facility] [address] [place], [address] IG% 1.100 High 0.0-0.9 [facility] Comment on above: Result Comment: IG% - Immature Granulocytes (promyelocytes, myelocytes and metamyelocytes) > 1% indicates that a LEFT SHIFT is Present. Performed By: #### L 100.0100, L300.4310, L500.2500, L300.3900, L503.6005 ####[facility] [address] [place], [address] Lymphocytes/100 WBC (Bld) 24.7 % Normal 19-41 [facility] Comment on above: Performed By: #### L 100.0100, L300.4310, L500.2500, L300.3900, L503.6005 ####[facility] [address] [place], [address] MCH (RBC) [Entitic mass] 26.7 pg Low 27.0-32.0 [facility] Comment on above: Performed By: #### L 100.0100, L300.4310, L500.2500, L300.3900, L503.6005 ####[facility] [address] [place], [address] MCHC (RBC) [Mass/Vol] 32.2 g/dL Normal 32-36 [facility] Comment on above: Performed By: #### L 100.0100, L300.4310, L500.2500, L300.3900, L503.6005 ####[facility] [address] [place], [address] MCV (RBC) [Entitic vol] 82.8 fL Normal 80-94 [facility] Comment on above: Performed By: #### L 100.0100, L300.4310, L500.2500, L300.3900, L503.6005 ####[facility] [address] [place], [address] Monocytes/100 WBC (Bld) 9.0 % Normal 0-10 [facility] Comment on above: Performed By: #### L 100.0100, L300.4310, L500.2500, L300.3900, L503.6005 ####[facility] [address] [place], [address] Neutrophils/100 WBC (Bld) 63.9 % Normal 47-70 [facility] Comment on above: Performed By: #### L 100.0100, L300.4310, L500.2500, L300.3900, L503.6005 ####[facility] [address] [place], [address] Nucleated RBC (Bld) [#/Vol] 0 10*3/uL Normal 0-5 [facility] Comment on above: Performed By: #### L 100.0100, L300.4310, L500.2500, L300.3900, L503.6005 ####[facility] [address] [place], [address] Platelet mean volume (Bld) [Entitic vol] 9.4 fL Normal 6.2-12.0 [facility] Comment on above: Performed By: #### L 100.0100, L300.4310, L500.2500, L300.3900, L503.6005 ####[facility] [address] [place], [address] Platelets (Bld) [#/Vol] 321 10*3/uL Normal 150-450 [facility] Comment on above: Performed By: #### L 100.0100, L300.4310, L500.2500, L300.3900, L503.6005 ####[facility] [address] [place], [address] RBC (Bld) [#/Vol] 4.31 10*6/uL Low 4.6-6.2 [facility] Comment on above: Performed By: #### L 100.0100, L300.4310, L500.2500, L300.3900, L503.6005 ####[facility] [address] [place], [address] RDW SD 41.4 fl Normal 35.1-43.9 [facility] Comment on above: Performed By: #### L 100.0100, L300.4310, L500.2500, L300.3900, L503.6005 ####[facility] [address] [place], [address] WBC (Bld) [#/Vol] 4.6 10*3/uL Normal 4.4-11.0 [facility] Comment on above: Performed By: #### L 100.0100, L300.4310, L500.2500, L300.3900, L503.6005 ####[facility] [address] [place], [address] Emergency Department Summary on 11-05-[address] [facility] Medical Records Department [address] [place] [address] Emergency Department Summary 11/05/24 MR#: [id number] Acct: [id number] Name: KHANH DE LA VEGA Jr. Rep #: [id number] : 1985 39 From: Joseph Taylor DO PCP: Care Physician,No Primary Status:DEP ER Location: ED HPI History of Present Illness Chief Complaint: Lower Extremity Injury Informant: patient Narrative Narrative: Patient is a 39-year-old male with past medical history of polysubstance abuse and tobacco use. He states over the past 5 days he has felt cramping in his right calf and noticed that his great toe feels numb and tingly. He states that there has been no trauma. He denies any fevers or chills. He states that he has been giving symptoms time to resolve and has not done so so therefore he presents for evaluation. 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) Chronic dental pain Acute opioid withdrawal Home Medications ???Medication ???Instructions ???Recorded ???Last Taken ???Type polyethylene glycol 3350 17 17 g PO DAILY 7 days #119 grams Unknown Rx gram/dose oral powder (Miralax) sennosides 8.6 mg capsule (senna) 8.6 mg PO BID PRN constipation 7 03/19/24 Unknown Rx days #14 caps Allergy/AdvReac Type Severity Reaction Status Date / Time Penicillins (PCN) Allergy Swelling Verified 11/04/24 22:32 Sulfa (Sulfonamide Allergy Swelling Verified 11/04/24 22:32 Antibiotics) Social History Smoking Status: Current every day smoker tobacco type: cigarettes and e-cigarettes ROS ROS ED Constitutional Constitutional ED: Denies chills or fever(s) Eyes Eyes: Denies blurry vision or change in vision ENT ENT ED: Denies sore throat Cardiovascular Cardiovascular: Denies chest pain, palpitations or racing heartbeat Respiratory/Chest Respiratory/Chest: Denies cough or dyspnea Gastrointestinal Gastrointestinal: Denies abdominal pain, diarrhea, nausea or vomiting Genitourinary Genitourinary ED: Denies dysuria Musculoskeletal Musculoskeletal: Reports other Details: Positive right foot pain Integumentary Denies rash Neurologic Neurologic: Reports paresthesias; Denies headache(s) Hematologic/Lymphatic Hematologic/Lymphatic: Denies easy bleeding or easy bruising EXAM Physical Exam Const Vital Signs: 11/04/24 22:30 Temperature 98.2 F Temperature Source Oral Pulse Rate 125 H Respiratory Rate 18 Blood Pressure 144/90 H Blood Pressure Mean 108 Pulse Ox 100 Oxygen Delivery Method Room Air Positive well nourished and well developed General Appearance ED: well developed HEENT HEENT Narrative: Normocephalic atraumatic Eyes PERRL and EOMs intact bilaterally General Eye ED: Negative for scleral icterus Neck supple Neck Narrative: No nuchal rigidity or meningeal signs Resp normal respiratory effort and clear to auscultation bilaterally Cardio regular rhythm Rate: tachycardic and other Other Details: Tachycardic rate with regular rhythm No murmurs rubs or gallops noted Extremity Extremity Narrative: Exam displays that the patient's capillary refill to the distal right foot/toes is delayed/at 3 seconds compared to the left lower extremity/foot which is less than 1 second. There is also temperature variation noted as the left foot is warm where the right foot from midfoot down is cool to touch. However the right foot still has a +1 dorsalis pedis pulse in the left foot has a normal +2 dorsalis pedis pulse There is no asymmetric edema or pitting edema Negative Homans' sign bilaterally Patient still has full active range of motion of the right lower leg/foot He describes paresthesias but can still differentiate between soft and sharp sensation in the lower extremity on the right Neuro oriented x3, CN's II-XII intact bilaterally and no sensory deficits noted Sensorium / Orientation: alert Motor Exam: strength 5/5 throughout Psych mental status grossly normal Skin no rashes or lesions noted Skin Narrative: Delayed capillary refill and temperature variation of the right foot compared to left No splinter hemorrhages or Janeway lesions noted Remainder of the exam is normal MDM MDM MDM Narrative Medical decision making narrative: Patient arrived to the ER hypertensive and tachycardic. He reported 5 days of foot numbness/tingling. However on physical exam he can still differentiate between soft and sharp sensation in dermatomes of the lower extremity. Physical exam does show delayed capillary refill dimi (more content not included)... Normal [facility] Lactic Acidon 11-05-2024 Lactate [Moles/Vol] 1.3 mmol/L Normal 0.4-1.9 [facility] Comment on above: Order Comment: Y Performed By: #### L 100.0100, L300.4310, L500.2500, L300.3900, L503.6005 ####[facility] [address] [place], [address] Partial Thromboplast Timeon 11-05-2024 aPTT Coag (Bld) [Time] 30.9 s Normal 24.1-36.2 [facility] Comment on above: Performed By: #### L 100.0100, L300.4310, L500.2500, L300.3900, L503.6005 ####[facility] [address] [place], [address] Prothrombin Time w/INRon INR Coag (PPP) [Relative time] 1.1 {INR} Normal [facility] Comment on above: Performed By: #### L 100.0100, L300.4310, L500.2500, L300.3900, L503.6005 ####[facility] [address] [place], [address] PT Coag (PPP) [Time] 14.2 s Normal 11.7-14.9 [facility] Comment on above: Performed By: #### L 100.0100, L300.4310, L500.2500, L300.3900, L503.6005 ####[facility] [address] [place], [address] Absolute neutrophil countOrd ered By: Joseph Taylor on 11-04-2024 Neutrophils (Bld) [#/Vol] 2.9 10*3/uL 2.0-7.7 [facility] Basophil percentageOrdered B y: Joseph Taylor on 11-04-2024 Basophils/100 WBC (Bld) 0.4 % 0-1 [facility] Blood urea nitrogen (BUN)/cr eatinine ratioOrdered By: Joseph Taylor on 11-04-2024 Urea nitrogen/Creatinine [Mass ratio] 18.3 mg/mg 10-20 [facility] CTA LWR EXTR W/O W/DYEon CTA LWR EXTR W/O W/DYE [facility] Imaging Services [address] [place] [address] CTA LWR EXTR W/O W/DYE MR#: [id number] Acct: [id number] Name: KHANH DE LA VEGA JrShavonne Rep #: [id number] : 1985 M 39 From: Gonzales Payton i, DO PCP: Care Physician,No Primary Status: [facility] ER Study: CTA LWR EXTR W/O W/DYE Date of Exam: 5 Exam# [id number] Ordering Dr: Joseph Taylor DO PROCEDURE: CT angiogram of the right lower extremity with IV contrast REASON FOR EXAM: Possible vascular occlusion. Right great toe numbness after muscle spasm days ago. TECHNIQUE: After the administration of intravenous contrast, contiguous axial CT images were obtained through the right lower extremity, from just above the knee through the toes. Sagittal and coronal reformats were created. Maximum intensity projection images were created and reviewed. COMPARISON: None available FINDINGS: The included osseous structures of the right lower extremity, from the distal femur through the toes are grossly intact. No soft tissue mass or drainable fluid collection of the right lower extremity. The included popliteal artery through the tibioperoneal trunk are patent. There is three-vessel runoff below the right knee. Please note that evaluation of the arterial vascular structures below the level of the ankle is significantly limited. CT/CTA LWR EXTR W/O W/DYE IMPRESSION: No evidence of large vessel arterial occlusion of the below knee right lower extremity. Detail is limited below the level of the right ankle. The included osseous structures and soft tissues of the right lower extremity show no specific abnormality. One or more dose reduction techniques were used (e.g., Automated exposure control, adjustment of the mA and/or kV according to patient size, use of iterative reconstruction technique). [facility]: Joseph Taylor, DO; No Primary Care Physician Life Support Technician: Signed Normal [facility] Carbon dioxide measurementOr dered By: Joseph Taylor on 11-04-2024 CO2 [Moles/Vol] 26.0 mmol/L 21.0-32.0 [facility] Chloride measurementOrdered By: Joseph Taylor on 11-04-2024 Chloride [Moles/Vol] 107 mmol/L 98-107 [facility] Eosinophil percentageOrdered By: Joseph Taylor on 11-04-2024 Eosinophils/100 WBC (Bld) 0.9 % 0-5 [facility] Erythrocyte distribution wid th ratioOrdered By: Joseph Taylor on 11-04-2024 Erythrocyte distribution width (RBC) [Ratio] 13.5 % 11.6-14.6 [facility] Erythrocyte distribution wid th standard deviationOrdered By: Joseph Taylor on 11-04-2024 Erythrocyte distribution width (RBC) [Entitic vol] 41.4 fL 35.1-43.9 [facility] Estimated glomerular filtrat ion rate (GFR) AmericanOrdered By: Joseph Taylor on 11-04-2024 Estimated GFR (MDRD) Amer 124 mL/min >60 [facility] Comment on above: GFR Calc Estimation of creatinine zakiya aranceOrdered By: Joseph Taylor on 11-04-2024 Estimated Creatinine Clearance Calc 112.87 ml/min [facility] Glomerular filtration rate ( GFR) estimationOrdered By: Joseph Taylor on 11-04-2024 Estimated GFR (MDRD) Non-Af Amer 103 mL/min >60 [facility] Comment on above: Non- GFR Calc Glucose measurementOrdered B y: Joseph Taylor on 11-04-2024 Glucose [Mass/Vol] 107 mg/dL High 74-106 [facility] Comment on above: Fasting Glucose resu lt from 100 to 125 mg/dL suggests IMPAIRED HOMEOSTASIS per A.D.A. criteria. Hematocrit Auto (Bld) [Volum e fraction]Ordered By: Joseph Taylor on 11-04-2024 Hematocrit (Bld) [Volume fraction] 35.7 % Low 40-54 [facility] Hemoglobin measurementOrdere d By: Joseph Taylor on 11-04-2024 Hemoglobin (Bld) [Mass/Vol] 11.5 g/dL Low 13.0-16.5 [facility] Immature granulocytes/100 WB C Auto (Bld)Ordered By: Joseph Taylor on 11-04-2024 Immature granulocytes/100 WBC (Bld) 1.100 % High 0.0-0.9 [facility] Comment on above: IG% - Immature Granu locytes (promyelocytes, myelocytes and metamyelocytes) > 1% indicates that a LEFT SHIFT is Present. International normalized rat io (INR) calculationOrdered By: Joseph Taylor on 11-04-2024 INR Coag (Bld) [Relative time] 1.1 {INR} [facility] Lactic acid measurementOrder ed By: Joseph Taylor on 11-04-2024 Lactate [Moles/Vol] 1.3 mmol/L 0.4-2.0 [facility] Lymphocytes Auto (Unsp spec) [#/Vol]Ordered By: Joseph Taylor on 11-04-2024 Lymphocytes (Bld) [#/Vol] 1.13 10*3/uL 0.83-4.51 [facility] Lymphocytes/100 WBC Auto (Un sp spec)Ordered By: Joseph Taylor on 11-04-2024 Lymphocytes/100 WBC (Bld) 24.7 % 19-41 [facility] MCV (mean corpuscular volume ) determinationOrdered By: Joseph Taylor on 11-04-2024 MCV (RBC) [Entitic vol] 82.8 fL 80-94 [facility] Mean corpuscular hemoglobin (MCH) determinationOrdered By: Joseph Taylor on 11-04-2024 MCH (RBC) [Entitic mass] 26.7 pg Low 27.0-32.0 [facility] Mean corpuscular hemoglobin concentration (MCHC) determinationOrdered By: Joseph Taylor on 11-04-2024 MCHC (RBC) [Mass/Vol] 32.2 g/dL 32-36 [facility] Mean platelet volume determi nationOrdered By: Joseph Taylor on 11-04-2024 Platelet mean volume (Bld) [Entitic vol] 9.4 fL 6.2-12.0 [facility] Monocyte percentageOrdered B y: Joseph Taylor on 11-04-2024 Monocytes/100 WBC (Bld) 9.0 % 0-10 [facility] Neutrophil percentageOrdered By: Joseph Taylor on 11-04-2024 Neutrophils/100 WBC (Bld) 63.9 % 47-70 [facility] Nucleated red blood cell per centageOrdered By: Joseph Taylor on 11-04-2024 Nucleated RBC/100 WBC (Bld) [Ratio] 0 % 0-5 [facility] Platelet countOrdered By: Mariela Taylor on 11-04-2024 Platelets (Bld) [#/Vol] 321 10*3/uL 150-450 [facility] Potassium measurementOrdered By: Joseph Taylor on 11-04-2024 Potassium [Moles/Vol] 3.6 mmol/L 3.5-5.1 [facility] Prothrombin timeOrdered By: Joseph Taylor on 11-04-2024 PT Coag (PPP) [Time] 14.2 s 11.7-14.9 [facility] RBC Auto (Bld) [#/Vol]Ordere d By: Joseph Taylor on 11-04-2024 RBC (Bld) [#/Vol] 4.31 10*6/uL Low 4.6-6.2 [facility] Serum anion gap measurementO rdered By: Joseph Taylor on 11-04-2024 Anion gap [Moles/Vol] 8 mmol/L 5-15 [facility] Serum or plasma calcium dalia urement (mass/volume)Ordered By: Joseph Taylor on 11-04-2024 Calcium [Mass/Vol] 9.2 mg/dL 8.5-10.1 [facility] Serum or plasma creatinine m easurement (mass/volume)Ordered By: Joseph Taylor on 11-04-2024 Creatinine [Mass/Vol] 0.87 mg/dL 0.70-1.30 [facility] Comment on above: The validity of the calculated GFR & GFRAA in patients over 70 years has not been determined. Clinical correlation is essential. Serum or plasma urea nitroge n measurement (mass/volume)Ordered By: Joseph Taylor on 11-04-2024 Urea nitrogen [Mass/Vol] 16 mg/dL 7-18 [facility] Sodium levelOrdered By: Ty Taylor on 11-04-2024 Sodium [Moles/Vol] 141 mmol/L 136-145 [facility] White blood cell (WBC) count Ordered By: Joseph Taylor on 11-04-2024 WBC (Bld) [#/Vol] 4.6 10*3/uL 4.4-11.0 [facility] aPTT Coag (PPP) [Time]Ordere d By: Joseph Taylor on 11-04-2024 aPTT Coag (Bld) [Time] 30.9 s 24.1-36.2 [facility] CNOVon 08-06-2024 CNOV Office Visit ([facility] ) KHANH DE LA VEGA ([id number]) 1985 M Date Time Provider Department 08/06/24 1:30 PM INOCENCIO OCHOA [facility] During your visit today, we recorded the following information about you: Inocencio Ochoa MD 08/06/2024 1:59 PM Signed [facility] Triage Note: Patient presents to the [facility] with complaint of needing a primary care provider to arrange prescription for incontinence supplies. He denies he has any acute issues, but was told there are no appointments to establish with a PCP for 3 months and to go to the [facility]. He is willing to schedule at another facility and scheduling was facilitated. Allergies As of Date: 08/06/2024 Noted Allergy Reaction PENICILLINS 12/14/2017 7 - Swelling SULFA (SULFONAMIDE ANTIBIOTICS) 12/14/2017 7 - Swelling Date Reviewed: 08/08/2020 Reviewed by: Erica Eldridge (Rn), RN - Fully Assessed Primary Visit Diagnosis:Urinary incontinence, unspecified type [R32] Prescriptions as of 08/06/2024 - methadone (DOLOPHINE) 5 mg tablet One po tid x 5 days then one po bid x 5 days then one tab daily for 5 days FOR PAIN - acetaminophen (TYLENOL) 325 mg tablet Take 2 tablets by mouth every 6 hours as needed. - hydrOXYzine HCl (ATARAX) 50 mg tablet Take 1 tablet by mouth every 6 hours as needed (Anxiety/ agitation). - nicotine (NICODERM) 14 mg/24 hr Apply 1 Patch as directed once daily. - senna-docusate (SENNA-S) 8.6-50 mg per tablet Take 2 tablets by mouth twice daily. 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 endocarditis [I33.0] 07/17/2020 IVDU (intravenous drug user) [F19.90] 07/17/2020 Fever [R50.9] 07/17/2020 07/31/2020 Leucocytosis [D72.829] 07/17/2020 Hepatitis C antibody positive in blood [R76.8] 07/17/2020 Preoperative testing [Z01.818] 07/18/2020 07/18/2020 Mild protein-calorie malnutrition (HCC) [E44.1] 07/19/2020 07/27/2020 Hyponatremia [E87.1] 07/19/2020 COVID-19 [U07.1] 07/22/2020 07/26/2020 Encounter Status:Closed by INOCENCIO OCHOA on 08/06/24 Normal [facility] Discharge Instructionon 02-[address] [facility] Medical Records Department [address] [place] [address] Instructions for Home/Discharge Instructions 03/19/24 1122 MR#: [id number] Acct: [id number] Name: KHANH DE LA VEGA Jr. Rep #: [id number] : 1985 38 From: Barron Camara DO PCP: Care Physician,No Primary Status:ADM IN Discharge Instructions Diet Discharge Diet: No restrictions Activity Discharge Activity: No Restrictions Follow Up Care Test Results: Test results from this visit will be discussed in further detail at your follow-up appointment, if applicable. Discharge Plan Admission Admit Date/Time: 03/16/24 19:42 Primary Reason for Your Visit: Opiate withdrawal Attending Provider: Barron Camara Primary Care Provider: Camille Physician,No Primary Consulting Providers: Elkin Garcia Discharge Orders/Prescriptions Prescriptions: New senna 8.6 mg capsule 8.6 mg PO BID PRN (Reason: constipation) 7 Days Qty: 14 0RF polyethylene glycol 3350 [Miralax] 17 gram/dose powder 17 g PO DAILY 7 Days Qty: 119 0RF Referrals / Follow Up: Care Physician,No Primary [Primary Care Provider] - Disposition Disposition (needs filled in before D/C Order can be placed): Home, Self Care 03/19/24 1123 Barron Camara DO CC: Dr. Elkin Garcia MD; No Primary Care Physician Signed Normal [facility] Basic Metabolic Profile (BMP )on 03-17-2024 BUN/CRE 11.4 RATIO Normal - [facility] Comment on above: Performed By: #### L 501.5200, L500.2500, L100.0500 #### [facility] Laboratory [address] [place], [address] CA,Total 8.6 mg/dL Normal 8.5-10.1 [facility] Comment on above: Performed By: #### L 501.5200, L500.2500, L100.0500 #### [facility] Laboratory [address] [place], [address] Chloride [Moles/Vol] 105 mmol/L Normal 98-107 [facility] Comment on above: Performed By: #### L 501.5200, L500.2500, L100.0500 #### [facility] [address] [place], [address] CO2 [Moles/Vol] 28.0 mmol/L Normal 21.0-32.0 [facility] Comment on above: Performed By: #### L 501.5200, L500.2500, L100.0500 #### [facility] [address] [place], [address] Creatinine [Mass/Vol] 0.88 mg/dL Normal 0.70-1.30 [facility] Comment on above: Result Comment: The validity of the calculated GFR GFRAA in patients over 70 years has not been determined. Clinical correlation is essential. Performed By: #### L 501.5200, L500.2500, L100.0500 #### [facility] [address] [place], [address] ECRCL 124.75 ml/min Normal [facility] Comment on above: Performed By: #### L 501.5200, L500.2500, L100.0500 #### [facility] [address] [place], [address] EST GFR - AA 124 mL/min Normal >60 [facility] Comment on above: Result Comment: Afri can Indian GFR Calc Performed By: #### L 501.5200, L500.2500, L100.0500 #### [facility] [address] [place], [address] GAP 6 Normal 5-15 [facility] Comment on above: Performed By: #### L 501.5200, L500.2500, L100.0500 #### [facility] [address] [place], [address] GFR/1.73 sq M.predicted among non-blacks MDRD (S/P/Bld) [Vol rate/Area] 103 mL/min/{1.73_m2} Normal >60 [facility] Comment on above: Result Comment: Non- GFR Calc Performed By: #### L 501.5200, L500.2500, L100.0500 #### [facility] [address] [place], [address] Glucose [Mass/Vol] 108 mg/dL High 74-106 [facility] Comment on above: Result Comment: Fast ing Glucose result from 100 to 125 mg/dL suggests IMPAIRED HOMEOSTASIS per A.D.A. criteria. Performed By: #### L 501.5200, L500.2500, L100.0500 #### [facility] [address] [place], [address] Potassium [Moles/Vol] 3.7 mmol/L Normal 3.5-5.1 [facility] Comment on above: Performed By: #### L 501.5200, L500.2500, L100.0500 #### [facility] [address] [place], [address] Sodium [Moles/Vol] 139 mmol/L Normal 136-145 [facility] Comment on above: Performed By: #### L 501.5200, L500.2500, L100.0500 #### [facility] [address] [place], [address] Urea nitrogen [Mass/Vol] 10 mg/dL Normal 7-18 [facility] Comment on above: Performed By: #### L 501.5200, L500.2500, L100.0500 #### [facility] [address] [place], [address] CBC-Complete Blood Cnt No Di ffon 03-17-2024 Erythrocyte distribution width (RBC) [Ratio] 13.0 % Normal 11.6-14.6 [facility] Comment on above: Performed By: #### L 501.5200, L500.2500, L100.0500 #### [facility] [address] [place], [address] Hematocrit (Bld) [Volume fraction] 34.2 % Low 40-54 [facility] Comment on above: Performed By: #### L 501.5200, L500.2500, L100.0500 #### [facility] [address] [place], [address] Hemoglobin (Bld) [Mass/Vol] 11.3 g/dL Low 13.0-16.5 [facility] Comment on above: Performed By: #### L 501.5200, L500.2500, L100.0500 #### [facility] [address] [place], [address] MCH (RBC) [Entitic mass] 27.8 pg Normal 27.0-32.0 [facility] Comment on above: Performed By: #### L 501.5200, L500.2500, L100.0500 #### [facility] [address] [place], [address] MCHC (RBC) [Mass/Vol] 33.0 g/dL Normal 32-36 [facility] Comment on above: Performed By: #### L 501.5200, L500.2500, L100.0500 #### [facility] [address] [place], [address] MCV (RBC) [Entitic vol] 84.2 fL Normal 80-94 [facility] Comment on above: Performed By: #### L 501.5200, L500.2500, L100.0500 #### [facility] [address] [place], [address] Platelet mean volume (Bld) [Entitic vol] 9.0 fL Normal 6.2-12.0 [facility] Comment on above: Performed By: #### L 501.5200, L500.2500, L100.0500 #### [facility] [address] [place], [address] Platelets (Bld) [#/Vol] 197 10*3/uL Normal 150-450 [facility] Comment on above: Performed By: #### L 501.5200, L500.2500, L100.0500 #### [facility] [address] [place], [address] RBC (Bld) [#/Vol] 4.06 10*6/uL Low 4.6-6.2 [facility] Comment on above: Performed By: #### L 501.5200, L500.2500, L100.0500 #### [facility] [address] [place], [address] RDW SD 40.0 fl Normal 35.1-43.9 [facility] Comment on above: Performed By: #### L 501.5200, L500.2500, L100.0500 #### [facility] [address] [place], [address] WBC (Bld) [#/Vol] 4.7 10*3/uL Normal 4.4-11.0 [facility] Comment on above: Performed By: #### L 501.5200, L500.2500, L100.0500 #### [facility] [address] [place], [address] Magnesiumon 03-17-2024 Magnesium [Mass/Vol] 2.0 mg/dL Normal 1.6-2.6 [facility] Comment on above: Performed By: #### L 501.5200, L500.2500, L100.0500 #### [facility] [address] [place], [address] Urine Drug Screen (VISTA)on 03-17-2024 AMPHETAMINES Positive Abnormal <1000 ng/mL [facility] Comment on above: Performed By: #### L 100.0100, L505.5000, L501.9100, L500.2500 ####[facility] [address] [place], [address] BARBITIURATES Negative Normal < 200 ng/mL [facility] Comment on above: Performed By: #### L 100.0100, L505.5000, L501.9100, L500.2500 ####[facility] [address] [facility] [address] BENZODIAZIPINE Positive Abnormal < 200 ng/mL [facility] Comment on above: Performed By: #### L 100.0100, L505.5000, L501.9100, L500.2500 ####[facility] [address] [place] [address] COCAINE Negative Normal < 300 ng/mL [facility] Comment on above: Performed By: #### L 100.0100, L505.5000, L501.9100, L500.2500 ####[facility] [address] [place] [address] ECSTACY Negative Normal < 500 ng/mL [facility] Comment on above: Performed By: #### L 100.0100, L505.5000, L501.9100, L500.2500 ####[facility] [address] [place], [place], [phone] METHADONE Negative Normal < 300 ng/mL [facility] Comment on above: Performed By: #### L 100.0100, L505.5000, L501.9100, L500.2500 ####[facility] [address] [place] [address] OPIATES Negative Normal < 300 ng/mL [facility] Comment on above: Performed By: #### L 100.0100, L505.5000, L501.9100, L500.2500 ####[facility] [address] [place] [address] PCP Negative Normal < 25 ng/mL [facility] Comment on above: Performed By: #### L 100.0100, L505.5000, L501.9100, L500.2500 ####[facility] [address] [place], [address] THC Positive Abnormal < 50 ng/mL [facility] Comment on above: Performed By: #### L 100.0100, L505.5000, L501.9100, L500.2500 ####[facility] [address] [place], [address] VISTA UDS PH 7 Normal [facility] Comment on above: Performed By: #### L 100.0100, L505.5000, L501.9100, L500.2500 ####[facility] [address] [place], [address] Alcohol, Blood (Medical)-Ser umon 03-16-2024 SERUM ETOH < 3.0 Normal [facility] Comment on above: Result Comment: The serum:whole blood ethanol ratio is approximately 1.14 and varies slightly with hematocrit. Medical Alcohol reference interval and critical value in non-tolerant individuals; 50 - 100 Impairment 100 Intoxication 100 - 250 Severe Poisoning 250 - 400 Deep/possible fatal coma Performed By: #### L 100.0100, L505.5000, L501.9100, L500.2500 #### [facility] Laboratory [address] [place], [address] Basic Metabolic Profile (BMP )on 03-16-2024 BUN/CRE 10.8 RATIO Normal 10-20 [facility] Comment on above: Performed By: #### L 100.0100, L505.5000, L501.9100, L500.2500 #### [facility] [address] [place], [address] CA,Total 9.1 mg/dL Normal 8.5-10.1 [facility] Comment on above: Performed By: #### L 100.0100, L505.5000, L501.9100, L500.2500 #### [facility] [address] [place], [address] Chloride [Moles/Vol] 103 mmol/L Normal 98-107 [facility] Comment on above: Performed By: #### L 100.0100, L505.5000, L501.9100, L500.2500 #### [facility] [address] [place], [address] CO2 [Moles/Vol] 27.0 mmol/L Normal 21.0-32.0 [facility] Comment on above: Performed By: #### L 100.0100, L505.5000, L501.9100, L500.2500 #### [facility] [address] [place], [address] Creatinine [Mass/Vol] 1.11 mg/dL Normal 0.70-1.30 [facility] Comment on above: Result Comment: The validity of the calculated GFR GFRAA in patients over 70 years has not been determined. Clinical correlation is essential. Performed By: #### L 100.0100, L505.5000, L501.9100, L500.2500 #### [facility] [address] [place], [address] ECRCL 98.75 ml/min Normal [facility] Comment on above: Performed By: #### L 100.0100, L505.5000, L501.9100, L500.2500 #### [facility] [address] [place], [address] EST GFR - AA 95 mL/min Normal >60 [facility] Comment on above: Result Comment: Afri can Indian GFR Calc Performed By: #### L 100.0100, L505.5000, L501.9100, L500.2500 #### [facility] [address] [place], [address] GAP 6 Normal 5-15 [facility] Comment on above: Performed By: #### L 100.0100, L505.5000, L501.9100, L500.2500 #### [facility] [address] [place], [address] GFR/1.73 sq M.predicted among non-blacks MDRD (S/P/Bld) [Vol rate/Area] 78 mL/min/{1.73_m2} Normal >60 [facility] Comment on above: Result Comment: Non- GFR Calc Performed By: #### L 100.0100, L505.5000, L501.9100, L500.2500 #### [facility] [address] [place], [address] Glucose [Mass/Vol] 98 mg/dL Normal 74-106 [facility] Comment on above: Performed By: #### L 100.0100, L505.5000, L501.9100, L500.2500 #### [facility] [address] [place], [address] Potassium [Moles/Vol] 3.3 mmol/L Low 3.5-5.1 [facility] Comment on above: Performed By: #### L 100.0100, L505.5000, L501.9100, L500.2500 #### [facility] [address] [place], [address] Sodium [Moles/Vol] 136 mmol/L Normal 136-145 [facility] Comment on above: Performed By: #### L 100.0100, L505.5000, L501.9100, L500.2500 #### [facility] [address] [place], [address] Urea nitrogen [Mass/Vol] 12 mg/dL Normal 7-18 [facility] Comment on above: Performed By: #### L 100.0100, L505.5000, L501.9100, L500.2500 #### [facility] [address] [place], [address] CBC W/Diff, Automatedon 06-1 9-2024 Absolute Lymph 0.96 X10 3/uL Normal 0.83-4.51 [facility] Comment on above: Performed By: #### L 100.0100, L505.5000, L501.9100, L500.2500 #### [facility] [address] [place], [address] Absolute Neut 5.2 X10 3/uL Normal 2.0-7.7 [facility] Comment on above: Performed By: #### L 100.0100, L505.5000, L501.9100, L500.2500 #### [facility] [address] [place], [address] Basophils/100 WBC (Bld) 0.7 % Normal 0-1 [facility] Comment on above: Performed By: #### L 100.0100, L505.5000, L501.9100, L500.2500 #### [facility] [address] [place], [address] Eosinophils/100 WBC (Bld) 3.8 % Normal 0-5 [facility] Comment on above: Performed By: #### L 100.0100, L505.5000, L501.9100, L500.2500 #### [facility] [address] [place], [address] Erythrocyte distribution width (RBC) [Ratio] 12.9 % Normal 11.6-14.6 [facility] Comment on above: Performed By: #### L 100.0100, L505.5000, L501.9100, L500.2500 #### [facility] [address] [place], [address] Hematocrit (Bld) [Volume fraction] 37.4 % Low 40-54 [facility] Comment on above: Performed By: #### L 100.0100, L505.5000, L501.9100, L500.2500 #### [facility] [address] [place], [address] Hemoglobin (Bld) [Mass/Vol] 12.4 g/dL Low 13.0-16.5 [facility] Comment on above: Performed By: #### L 100.0100, L505.5000, L501.9100, L500.2500 #### [facility] [address] [place], [address] IG% 0.300 Normal 0.0-0.9 [facility] Comment on above: Result Comment: IG% - Immature Granulocytes (promyelocytes, myelocytes and metamyelocytes) > 1% indicates that a LEFT SHIFT is Present. Performed By: #### L 100.0100, L505.5000, L501.9100, L500.2500 #### [facility] [address] [place], [address] Lymphocytes/100 WBC (Bld) 13.4 % Low 19-41 [facility] Comment on above: Performed By: #### L 100.0100, L505.5000, L501.9100, L500.2500 #### [facility] [address] [place], [address] MCH (RBC) [Entitic mass] 27.9 pg Normal 27.0-32.0 [facility] Comment on above: Performed By: #### L 100.0100, L505.5000, L501.9100, L500.2500 #### [facility] [address] [place], [address] MCHC (RBC) [Mass/Vol] 33.2 g/dL Normal 32-36 [facility] Comment on above: Performed By: #### L 100.0100, L505.5000, L501.9100, L500.2500 #### [facility] [address] [place], [address] MCV (RBC) [Entitic vol] 84.2 fL Normal 80-94 [facility] Comment on above: Performed By: #### L 100.0100, L505.5000, L501.9100, L500.2500 #### [facility] [address] [place], [address] Monocytes/100 WBC (Bld) 9.4 % Normal 0-10 [facility] Comment on above: Performed By: #### L 100.0100, L505.5000, L501.9100, L500.2500 #### [facility] [address] [place], [address] Neutrophils/100 WBC (Bld) 72.4 % High 47-70 [facility] Comment on above: Performed By: #### L 100.0100, L505.5000, L501.9100, L500.2500 #### [facility] [address] [place], [address] Nucleated RBC (Bld) [#/Vol] 0 10*3/uL Normal 0-5 [facility] Comment on above: Performed By: #### L 100.0100, L505.5000, L501.9100, L500.2500 #### [facility] [address] [place], [address] Platelet mean volume (Bld) [Entitic vol] 9.2 fL Normal 6.2-12.0 [facility] Comment on above: Performed By: #### L 100.0100, L505.5000, L501.9100, L500.2500 #### [facility] [address] [place], [address] Platelets (Bld) [#/Vol] 208 10*3/uL Normal 150-450 [facility] Comment on above: Performed By: #### L 100.0100, L505.5000, L501.9100, L500.2500 #### [facility] [address] [place], [address] RBC (Bld) [#/Vol] 4.44 10*6/uL Low 4.6-6.2 [facility] Comment on above: Performed By: #### L 100.0100, L505.5000, L501.9100, L500.2500 #### [facility] [address] [place], [address] RDW SD 39.6 fl Normal 35.1-43.9 [facility] Comment on above: Performed By: #### L 100.0100, L505.5000, L501.9100, L500.2500 #### [facility] [address] [place], [address] WBC (Bld) [#/Vol] 7.2 10*3/uL Normal 4.4-11.0 [facility] Comment on above: Performed By: #### L 100.0100, L505.5000, L501.9100, L500.2500 #### [facility] [address] [place], [address] Emergency Department Summary on 03-16-[address] [facility] Medical Records Department [address] [facility] [place] [address] Emergency Department Summary 03/16/24 MR#: [id number] Acct: [id number] Name: KHANH DE LA VEGA JrShavonne Rep #: [id number] : 1985 38 From: Amauri Carrera DO PCP: Care Physician,No Primary Status:ADM IN Location: [place] [address] HPI History of Present Illness Chief Complaint: Substance Abuse Informant: patient Onset/Context/Timing Onset: Today Timing: Continuous Worsened by: Nothing Relieved by: Nothing Associated Symptoms Associated Symptoms: Negative for vomiting*, diarrhea*, fever*, rash*, seizure, tremor, palpatations, suicidal ideation or homicidal ideation Narrative Narrative: Patient presents requesting detox from heroin and fentanyl. Patient states he normally uses approximately quarter gram per day. Patient states he injects. Patient states his last use was earlier today. Patient denies any nausea, vomiting, or diarrhea. Patient denies any fevers or chills. Patient denies any seizures or tremors. Patient denies any suicidal or homicidal ideations. Patient has been seen here in the past for detox but this was in June 2020. 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) Chronic dental pain Acute opioid withdrawal Home Medications ???Medication ???Instructions ???Recorded ???Last Taken ???Type NK 03/16/24 Unknown History Allergy/AdvReac Type Severity Reaction Status Date / Time Penicillins (PCN) Allergy Swelling Verified 11/18/23 01:05 Sulfa (Sulfonamide Allergy Swelling Verified 11/18/23 01:05 Antibiotics) Social History Smoking Status: Current every day smoker tobacco type: cigarettes and e-cigarettes ROS ROS ED Constitutional Constitutional ED: Denies chills or fever(s) Eyes Eyes: Denies blurry vision or change in vision ENT ENT ED: Reports rhinorrhea; Denies sore throat Cardiovascular Cardiovascular: Denies chest pain or palpitations Respiratory/Chest Respiratory/Chest: Denies cough or dyspnea Gastrointestinal Gastrointestinal: Denies nausea or vomiting Genitourinary Genitourinary ED: Denies dysuria or hematuria Musculoskeletal Musculoskeletal: Reports back pain and neck pain Integumentary Denies abscess or rash Neurologic Neurologic: Denies headache(s) or weakness Allergic/Immunologic Allergic/Immunologic ED: Denies mouth swelling or urticaria EXAM Physical Exam Const Vital Signs: 03/16/24 16:03 Temperature 97.6 F L Temperature Source Temporal Pulse Rate 115 H Respiratory Rate 20 H Blood Pressure 131/84 H Blood Pressure Mean 99 Pulse Ox 98 Oxygen Delivery Method Room Air Positive well nourished and well developed General Appearance ED: well developed and NAD HEENT Reports moist mucous membranes Neck supple and no JVD Resp normal respiratory effort and clear to auscultation bilaterally Cardio regular rhythm Rate: tachycardic GI soft to palpation, non-tender and non-distended Neuro oriented x3, CN's II-XII intact bilaterally and no sensory deficits noted Abrams Coma Scale: document GCS findings Spontaneous Obeys Commands Oriented 15 Sensorium / Orientation: alert Speech: speech normal Motor Exam: strength 5/5 throughout Psych mental status grossly normal and thought process normal MDM MDM MDM Narrative Medical decision making narrative: Medical screening labs will be obtained. CBC will be obtained to assess for leukocytosis and anemia. Basic metabolic profile will be obtained to assess for electrolyte abnormality and renal function. Serum alcohol level will be obtained to assess for alcohol intoxication. Urine tox screen will be obtained to assess for substance abuse. Lab Data Labs: Laboratory Results - last 24 hr 03/16/24 16:51 WBC 7.2 RBC 4.44 L Hgb 12.4 L Hct 37.4 L MCV 84.2 MCH 27.9 MCHC 33.2 RDW Std Deviation 39.6 RDW Coeff of Saul 12.9 Plt Count 208 MPV 9.2 Immature Gran % (Auto) 0.300 Neut % (Auto) 72.4 H Lymph % (Auto) 13.4 L [place] % (Auto) 9.4 Eos % (Auto) 3.8 Baso % (Auto) 0.7 Absolute Neuts (auto) 5.2 Absolute Lymphs (auto) 0.96 Nucleated RBC % 0 Sodium 136 Potassium 3.3 L Chloride 103 Carbon Dioxide 27.0 Anion Gap 6 BUN 12 Creatinine 1.11 Estim Creat Clear Calc 98.75 Est GFR (MDRD) Af Amer 95 Est GFR (MDRD) Non-Af 78 BUN/Creatinine Ratio 10.8 Glucose 98 Calcium 9.1 Ethyl Alcohol < 3.0 Management Discussion w/another healthcare provider: Hospitalist Treatment and Re-Evaluation Narrative: Case was discussed with the hospitalist. He will ad (more content not included)... Normal [facility] H AND P Exam - [facility] 03-16-2024 H&P Exam - Hospitalist [facility] Medical Records Department [address] [place] [address] H P Exam - Hospitalist 03/16/24 1826 MR#: [id number] Acct: [id number] Name: YUNGKHANH ASHMIREYA Bhatti Rep #: [id number] : 1985 38 From: Elkin Garcia MD PCP: Care Physician,No Primary Status:ADM IN Location: MS3 [id number] HPI - General General Date of Admission: 03/16/24 Date of Service: 03/16/24 Chief Complaint: Patient having opioid withdrawal symptoms came for help for detox HPI Narrative KHANH CASTANONERNST, is a 38 M with history of polysubstance use including opioids, methamphetamine came for help for medical stabilization. Patient is stated that he takes multiple times probably 2 to 3 g of opioids including mainly fentanyl but may be heroin or other cocktail available on the streets. He was just IV needles and he also injects methamphetamine. Patient states he also takes marijuana. He smokes cigarettes 1 pack/day. He denies drinking alcohol. Patient last dose IV fentanyl was before he came to the ER around noon time. He is having muscle twitching, abdominal cramps, sweating and feeling restless. In the past he had withdrawal symptoms including vomiting, hallucinations. Denies history of seizure. He also has history of infective endocarditis in 2019. Has history of chronic hep C. 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 No fever. HEENT: Reports systems reviewed and no addt'l complaints, except as documented Respiratory/Chest: No acute shortness of breath or respiratory distress or wheezing. CVS: No chest pain pressure or tightness. Gastrointestinal: Denies coffee ground emesis, hematemesis or vomiting. Feeling nauseated Genitourinary: Denies burning urination or new urinary tract symptoms Musculoskeletal: Restlessness. Denies acute joint pain or limited range of motion. No acute injury Neurologic: Denies seizure-like symptoms. No acute or strokelike symptoms. skin: No ulcer. No rash. Has bruises from the needles. Endocrinology: Reports systems reviewed and no addt'l complaints, except as documented Hematologic/Lymphatic: Reports systems reviewed and no addt'l complaints, except as documented Rest 14 ROS are negative except as mentioned in HPI Vital Signs Vital Signs Vital Signs: 03/16/24 16:03 Temperature 97.6 F L Temperature Source Temporal Pulse Rate 115 H Respiratory Rate 20 H Blood Pressure 131/84 H Blood Pressure Mean 99 Pulse Ox 98 Oxygen Delivery Method Room Air Weight Weight: 196 lb 13.965 oz Body Mass Index (BMI) 29.0 Physical Exam Narrative General: Alert, Oriented x3, Cooperative HEENT: Atraumatic, PERRLA, EOMI, Normocephalic Oral: Oral mucosa dry. No Gingival or Mucosal Lesions/ Ulcerations Neck: Supple, No JVD, Negative Carotid Bruits Chest wall/Lungs: Air entry diminished in bilateral lung bases. No crepitation/rhonchi Cardiovascular: Regular rate, Regular Rhythm, Normal S1, Normal S2, soft systolic murmur at cardiac apex. Abdomen: Bowel Sounds Present, Soft, Non Tender, Non-Distended : No dysuria. No renal angle tenderness. No suprapubic tenderness. Extremities: No edema, Capillary Refill Less than 3 Seconds Skin: Needleless scar dequan. Chronic thrombophlebitis with thickened and hard antecubital peripheral veins Musculoskeletal: No Tenderness to Palpation of Joints or Extremities Neurological: Cranial nerves II-XII grossly intact, DTR 2+/4. No acute focal neurological deficit. Psych/Mental Status: Normal Affect, Appropriate. Results Lab / Micro Data 03/16/24 16:51 03/16/24 16:51 Labs: Laboratory Results - last 24 hr 03/16/24 16:51: WBC 7.2, RBC 4.44 L, Hgb 12.4 L, Hct 37.4 L, MCV 84.2, MCH 27.9, MCHC 33.2, RDW Std Deviation 39.6, RDW Coeff of Saul 12.9, Plt Count 208, MPV 9.2, Immature Gran % (Auto) 0.300, Neut % (Auto) 72.4 H, Lymph % (Auto) 13.4 L, [place] % (Auto) 9.4, Eos % (Auto) 3.8, Baso % (Auto) 0.7, Absolute Neuts (auto) 5.2, Absolute Lymphs (auto) 0.96, Nucleated RBC % 0, Sodium 136, Potassium 3.3 L, Chloride 103, Carbon Dioxide 27.0, Anion Gap 6, BUN 12, Creatinine 1.11, Estim Creat Clear Calc 9 (more content not included)... Normal [facility] Magnesiumon 03-16-2024 Magnesium [Mass/Vol] 2.1 mg/dL Normal 1.6-2.6 [facility] Comment on above: Performed By: #### L 501.2300, L501.5200, L300.3900 ####[facility] [address] [place], [address] Phosphoruson 03-16-2024 Phosphate [Mass/Vol] 2.0 mg/dL Low 2.5-4.9 [facility] Comment on above: Performed By: #### L 501.2300, L501.5200, L300.3900 ####[facility] [address] [place], [address] Prothrombin Time w/INRon INR Coag (PPP) [Relative time] 1.1 {INR} Normal [facility] Comment on above: Performed By: #### L 501.2300, L501.5200, L300.3900 ####[facility] [address] [place], [address] PT Coag (PPP) [Time] 14.0 s Normal 11.7-14.9 [facility] Comment on above: Performed By: #### L 501.2300, L501.5200, L300.3900 ####[facility] [address] [place], [address] XR SPINE LUMBOSACRAL 2 OR 3 VIEWSon 03-10-2024 XR SPINE LUMBOSACRAL 2 OR 3 VIEWS ORIGINAL EXAMINATION: 3 XRAY VIEWS OF THE LUMBAR SPINE03/09/2024 2:53 pm LUMBAR SPINE 2 or 3 VIEWS COMPARISON: None HISTORY: ORDERING SYSTEM PROVIDED HISTORY: Reason for Exam: LUMBOSACRAL PAIN FINDINGS: The lumbar vertebral body heights are normal. The alignment is maintained. Disc height loss seen at L4-5. Associated marginal spurring. There is a minimal disc osteophyte at L5-S1. Mild facet arthropathy seen in the lower lumbar spine. IMPRESSION: No compression deformities. Mild degenerative changes Interpreted by: Dameon Back MD Preliminary Report By: Dameon Back MD Electronically signed By Dameon Back MD Dictated Date: 03/10/2024 9:33:29 AM Prelim Date: 03/10/2024 9:34:17 AM Sign Date: 03/10/2024 9:34:17 AM Ordering Provider: PHY REFERRING Normal [facility] ([place]) Absolute lymphocyte countOrd ered By: Joseph Taylor on 12-22-2022 Lymphocytes Auto (Unsp spec) [#/Vol] 1.90 10*3/uL 0.83-4.51 [facility] Basophil percentageOrdered B y: Joseph Taylor on 12-22-2022 Basophils/100 WBC (Bld) 0.3 % 0-1 [facility] Chloride [Moles/Vol] 109 mmol/L 98-107 [facility] Eosinophils/100 WBC (Bld) 1.6 % 0-5 [facility] Glucose [Mass/Vol] 125 mg/dL 74-106 [facility] Comment on above: Fasting Glucose resu lt from 100 to 125 mg/dL suggests IMPAIRED HOMEOSTASIS per A.D.A. criteria. Neutrophils (Bld) [#/Vol] 4.4 10*3/uL 2.0-7.7 [facility] Neutrophils/100 WBC (Bld) 62.4 % 47-70 [facility] Potassium [Moles/Vol] 3.2 mmol/L 3.5-5.1 [facility] Sodium [Moles/Vol] 139 mmol/L 136-145 [facility] WBC (Bld) [#/Vol] 7.0 10*3/uL 4.4-11.0 [facility] Blood erythrocytes count (nu mber/volume)Ordered By: Joseph Taylor on 12-22-2022 RBC (Bld) [#/Vol] 4.71 10*6/uL 4.6-6.2 [facility] Blood hemoglobin measurement (mass/volume)Ordered By: Joseph Taylor on 12-22-2022 Hemoglobin (Bld) [Mass/Vol] 13.4 g/dL 13.0-16.5 [facility] Blood lymphocytes/100 leukoc ytesOrdered By: Joseph Taylor on 12-22-2022 Lymphocytes/100 WBC (Bld) 27.1 % 19-41 [facility] Blood monocytes/100 leukocyt esOrdered By: Joseph Taylor on 12-22-2022 Monocytes/100 WBC (Bld) 8.3 % 0-10 [facility] Blood platelet mean volumeOr dered By: Joseph Taylor on 12-22-2022 Platelet mean volume (Bld) [Entitic vol] 9.4 fL 6.2-12.0 [facility] Determination of erythrocyte mean corpuscular volume (MCV)Ordered By: Joseph Taylor on 12-22-2022 MCV (RBC) [Entitic vol] 84.5 fL 80-94 [facility] Hematocrit Auto (Bld) [Volum e fraction]Ordered By: Joseph Taylor on 12-22-2022 Hematocrit (Bld) [Volume fraction] 39.8 % 40-54 [facility] Laboratory - Chemistry and C hemistry - challengeOrdered By: Joseph Taylor on 12-22-2022 CO2 [Moles/Vol] 23.0 mmol/L 21.0-32.0 [facility] Urea nitrogen/Creatinine [Mass ratio] 17.9 mg/mg 10-20 [facility] Laboratory - Hematology and Cell countsOrdered By: Joseph Taylor on 12-22-2022 Erythrocyte distribution width (RBC) [Entitic vol] 42.3 fL 35.1-43.9 [facility] Erythrocyte distribution width (RBC) [Ratio] 13.6 % 11.6-14.6 [facility] Immature granulocytes/100 WBC (Bld) 0.300 % 0.0-0.9 [facility] Comment on above: IG% - Immature Granu locytes (promyelocytes, myelocytes and metamyelocytes) > 1% indicates that a LEFT SHIFT is Present. MCH (RBC) [Entitic mass] 28.5 pg 27.0-32.0 [facility] Nucleated RBC/100 WBC (Bld) [Ratio] 0 % 0-5 [facility] MCHC Auto (RBC) [Mass/Vol]Or dered By: Joseph Taylor on 12-22-2022 MCHC (RBC) [Mass/Vol] 33.7 g/dL 32-36 [facility] No Panel InformationOrdered By: Joseph Taylor on 12-22-2022 Estimated Creatinine Clearance Calc 105.43 ml/min [facility] Estimated GFR (MDRD) Amer 114 mL/min >60 [facility] Comment on above: GFR Calc Estimated GFR (MDRD) Non-Af Amer 94 mL/min >60 [facility] Comment on above: Non- GFR Calc Platelets bldOrdered By: Matt Taylor on 12-22-2022 Platelets (Bld) [#/Vol] 274 10*3/uL 150-450 [facility] Serum or plasma calcium dalia urement (mass/volume)Ordered By: Joseph Taylor on 12-22-2022 Calcium [Mass/Vol] 8.3 mg/dL 8.5-10.1 [facility] Serum or plasma creatinine m easurement (mass/volume)Ordered By: Joseph Taylor on 12-22-2022 Creatinine [Mass/Vol] 0.95 mg/dL 0.70-1.30 [facility] Comment on above: The validity of the calculated GFR & GFRAA in patients over 70 years has not been determined. Clinical correlation is essential. Serum or plasma urea nitroge n measurement (mass/volume)Ordered By: Joseph Taylor on 12-22-2022 Urea nitrogen [Mass/Vol] 17 mg/dL 7-18 [facility] Thin prep Papanicolaou smear with manual screeningOrdered By: Joseph Taylor on 12-22-2022 Thin prep Papanicolaou smear with manual screening 7 5-15 [facility] CBC with Auto Differentialon 07-15-2022 Absolute Baso # 0.1 10*3/uL 0 - 0.2 10*3/uL [facility] Work Phone: Absolute Neut # 2.2 10*3/uL 1.8 - 7 10*3/uL [facility] Work Phone: Basophils/100 WBC (Bld) 0.9 % 0 - 2 % [facility] Work Phone: Eosinophils (Bld) [#/Vol] 0.3 10*3/uL 0 - 0.5 10*3/uL [facility] Work Phone: Eosinophils/100 WBC (Bld) 5.2 % 1 - 6 % [facility] Work Phone: Granulocytes/100 WBC (Bld) 34.0 % Low 40 - 80 % [facility] Work Phone: Hematocrit (Bld) [Volume fraction] 32.9 % Low 40 - 52 % [facility] Work Phone: Hemoglobin (Bld) [Mass/Vol] 11.4 g/dL Low 13 - 18 g/dL [facility] Work Phone: Interpretation and review of laboratory results Abnormal [facility] Work Phone: Lymphocytes (Bld) [#/Vol] 3.3 10*3/uL 1 - 4.3 10*3/uL [facility] Work Phone: Lymphocytes/100 WBC (Bld) 51.4 % High 20 - 40 % [facility] Work Phone: MCH (RBC) [Entitic mass] 29.2 pg 26 - 34 pg [facility] Work Phone: MCHC (RBC) [Mass/Vol] 34.6 % 32 - 36 % [facility] Work Phone: MCV (RBC) [Entitic vol] 84.3 fL 80 - 98 fL [facility] Work Phone: Monocytes (Bld) [#/Vol] 0.6 10*3/uL 0 - 0.8 10*3/uL [facility] Work Phone: Monocytes/100 WBC (Bld) 8.5 % 2 - 10 % [facility] Work Phone: Platelet distribution width (Bld) [Ratio] 14.5 % 11.5 - 14.5 % [facility] Work Phone: Platelet mean volume (Bld) [Entitic vol] 7.6 fL 7.4 - 12.4 fL [facility] Work Phone: Comment on above: MPV is a calculated measurement using platelet volume ratio. Platelets (Bld) [#/Vol] 246 10*3/uL 140 - 440 10*3/uL [employer] Work Phone: RBC (Bld) [#/Vol] 3.90 10*6/uL Low 4.4 - 5.9 10*6/uL [employer] Work Phone: WBC (Bld) [#/Vol] 6.5 10*3/uL 3.6 - 10.7 10*3/uL [employer] Work Phone: CKon 07-15-2022 CK [Catalytic activity/Vol] 1111 U/L High 30-170 [facility] Comment on above: Performed By: #### B MP3, BNP3, CK3, TROPN, HEMDF #### [employer] [address] [place] [address] CK [Catalytic activity/Vol] 1111 U/L High 30 - 170 U/L [employer] Work Phone: Comp Panel with Mg Reflexon 07-15-2022 ALT [Catalytic activity/Vol] 19 U/L Normal 0-49 [facility] Comment on above: Result Comment: The ALT test is performed by an updated assay method. Please note that the reference intervals have been changed and are now sex specific. Performed By: #### B MP3, BNP3, CK3, TROPN, HEMDF #### [employer] [address] [place] [address] Calcium [Mass/Vol] 8.2 mg/dL Low 8.4-10.4 [facility] Comment on above: Performed By: #### B MP3, BNP3, CK3, TROPN, HEMDF #### [employer] [address] [place] [address] Glucose [Mass/Vol] 113 mg/dL High 70-100 [facility] Comment on above: Performed By: #### B MP3, BNP3, CK3, TROPN, HEMDF #### [employer] [address] [place] [address] ALP [Catalytic activity/Vol] 79 U/L Normal 38-126 [facility] Comment on above: Performed By: #### B MP3, BNP3, CK3, TROPN, HEMDF #### [facility] [address] [place] [address] Anion gap [Moles/Vol] 5 mmol/L Normal 3-13 [facility] Comment on above: Performed By: #### B MP3, BNP3, CK3, TROPN, HEMDF #### [facility] [address] [place] [address] AST [Catalytic activity/Vol] 55 U/L High 15-46 [facility] Comment on above: Performed By: #### B MP3, BNP3, CK3, TROPN, HEMDF #### [facility] [address] [place] [address] Bilirubin [Mass/Vol] 0.3 mg/dL Normal 0.2-1.3 [facility] Comment on above: Performed By: #### B MP3, BNP3, CK3, TROPN, HEMDF #### [facility] [address] [place] [address] CO2 [Moles/Vol] 24 mmol/L Normal 22-30 [facility] Comment on above: Performed By: #### B MP3, BNP3, CK3, TROPN, HEMDF #### [facility] [address] [place] [address] Creatinine [Mass/Vol] 0.77 mg/dL Normal 0.52-1.25 [facility] Comment on above: Performed By: #### B MP3, BNP3, CK3, TROPN, HEMDF #### [facility] [address] [place] [address] eGFR OTHER > 90.0 Normal >60 [facility] Comment on above: Result Comment: KDIG O guidelines provide the following GFR categories: Stage GFR(ml/min/1.73 m2) Terms G1 >=90 Normal or high G2 60-89 Mildly decreased* G3a 45-59 Mildly to moderately decreased G3b 30-44 Moderately to severely decreased G4 15-29 Severely decreased G5 <15 Kidney failure *Relative to young adult level. In the absence of evidence of kidney damage, neither GFR category G1 nor G2 fulfill the criteria for CKD. The CKD-EPI equation is validated in individuals 18 years of age and older. Currently the best equation for estimating glomerular filtration rate (GFR) from serum creatinine in children is the Bedside Jeffers equation. It is less accurate in patients with extremes of muscle mass, restriction of dietary protein, ingestion of creatine, extra-renal metabolism of creatinine, or treatment with medications that affect renal tubular creatinine secretion. Performed By: #### B MP3, BNP3, CK3, TROPN, HEMDF #### [facility] [address] [place] [address] GFR/1.73 sq M.predicted among blacks MDRD (S/P/Bld) [Vol rate/Area] mL/min/{1.73_m2} Normal >60 [facility] Comment on above: Performed By: #### B MP3, BNP3, CK3, TROPN, HEMDF #### [facility] [address] [place] [address] Protein [Mass/Vol] 6.3 g/dL Normal 6.3-8.2 [facility] Comment on above: Performed By: #### B MP3, BNP3, CK3, TROPN, HEMDF #### [facility] [address] [place] [address] Urea nitrogen [Mass/Vol] 22 mg/dL High 7-17 [facility] Comment on above: Performed By: #### B MP3, BNP3, CK3, TROPN, HEMDF #### [facility] [address] [place] [address] Potassium [Moles/Vol] 3.3 mmol/L Low 3.5-5.1 [facility] Comment on above: Performed By: #### B MP3, BNP3, CK3, TROPN, HEMDF #### [facility] [address] [place] [address] Sodium [Moles/Vol] 140 mmol/L Normal 135-145 [facility] Comment on above: Performed By: #### B MP3, BNP3, CK3, TROPN, HEMDF #### [facility] [address] [place] [address] Albumin [Mass/Vol] 3.3 g/dL Low 3.5-5.0 [facility] Comment on above: Performed By: #### B MP3, BNP3, CK3, TROPN, HEMDF #### [facility] [address] [place] [address] Chloride [Moles/Vol] 111 mmol/L High 98-107 [facility] Comment on above: Performed By: #### B MP3, BNP3, CK3, TROPN, HEMDF #### [facility] [address] [place] [address] Comprehensive Metabolic Pane l w/ Reflex to MGOrdered By: Laura Hooks on 07-15-2022 Albumin [Mass/Vol] 3.3 g/dL Low 3.5 - 5 g/dL [facility] ALP (Bld) [Catalytic activity/Vol] 79 U/L 38 - 126 U/L [facility] ALT [Catalytic activity/Vol] 19 U/L 0 - 49 U/L [facility] Comment on above: The ALT test is perf ormed by an updated assay method. Please note that the reference intervals have been changed and are now sex specific. Anion gap [Moles/Vol] 5 mmol/L 3 - 13 mmol/L [facility] AST [Catalytic activity/Vol] 55 U/L High 15 - 46 U/L [facility] Bilirubin [Mass/Vol] 0.3 mg/dL 0.2 - 1 .3 mg/dL [facility] Calcium [Mass/Vol] 8.2 mg/dL Low 8.4 - 10. 4 mg/dL [facility] Chloride [Moles/Vol] 111 mmol/L High 98 - 10 7 mmol/L [facility] CO2 [Moles/Vol] 24 mmol/L 22 - 30 mmol/L [facility] Creatinine [Mass/Vol] 0.77 mg/dL 0.52 - 1.25 mg/dL [facility] eGFR mL/min 60 - P INF mL/min [facility] EGFR IF NonAfrican Indian mL/min 60 - PINF mL/min [facility] Comment on above: KDIGO guidelines pro vide the following GFR categories: Stage GFR(ml/min/1.73 m2) Terms G1 >=90 Normal or high G2 60-89 Mildly decreased* G3a 45-59 Mildly to moderately decreased G3b 30-44 Moderately to severely decreased G4 15-29 Severely decreased G5 <15 Kidney failure *Relative to young adult level. In the absence of evidence of kidney damage, neither GFR category G1 nor G2 fulfill the criteria for CKD. The CKD-EPI equation is validated in individuals 18 years of age and older. Currently the best equation for estimating glomerular filtration rate (GFR) from serum creatinine in children is the Bedside Jeffers equation. It is less accurate in patients with extremes of muscle mass, restriction of dietary protein, ingestion of creatine, extra-renal metabolism of creatinine, or treatment with medications that affect renal tubular creatinine secretion. Glucose [Mass/Vol] 113 mg/dL High 70 - 100 mg/dL [facility] Potassium [Moles/Vol] 3.3 mmol/L Low 3.5 - 5.1 mmol/L [facility] Protein [Mass/Vol] 6.3 g/dL 6.3 - 8.2 g/dL [facility] Sodium [Moles/Vol] 140 mmol/L 135 - 145 mmol/L [facility] Urea nitrogen (BldV) [Mass/Vol] 22 mg/dL High 7 - 17 mg/dL [facility] Ethanolon 07-15-2022 Ethanol Lvl <0.010 0 - 0.01 g/dL [facility] Comment on above: NOTE: This result is for medical treatment only. Analysis performed using non-forensic procedures. Ethanol Serum/Plasmaon 07-15 Ethanol-Serum/Plasma < 0.010 Normal 0.000-0.010 [facility] Comment on above: Result Comment: NOTE : This result is for medical treatment only. Analysis performed using non-forensic procedures. Performed By: #### B MP3, BNP3, CK3, TROPN, HEMDF #### [facility] [address] [place] [address] Hemogram w/ Autodiffon 07-15 Abs Baso Cnt 0.1 10*3/uL Normal 0.0-0.2 [facility] Comment on above: Performed By: #### B MP3, BNP3, CK3, TROPN, HEMDF #### [facility] [address] [place] [address] Abs Neutrophile Cnt 2.2 10*3/uL Normal 1.8-7.0 [facility] Comment on above: Performed By: #### B MP3, BNP3, CK3, TROPN, HEMDF #### [facility] [address] [place] [address] Basophils/100 WBC (Bld) 0.9 % Normal 0.0-2.0 [facility] Comment on above: Performed By: #### B MP3, BNP3, CK3, TROPN, HEMDF #### [facility] [address] [place] [address] Eosinophils (Bld) [#/Vol] 0.3 10*3/uL Normal 0.0-0.5 [facility] Comment on above: Performed By: #### B MP3, BNP3, CK3, TROPN, HEMDF #### [facility] [address] [place] [address] Eosinophils/100 WBC (Bld) 5.2 % Normal 1.0-6.0 [facility] Comment on above: Performed By: #### B MP3, BNP3, CK3, TROPN, HEMDF #### [facility] [address] [place] [address] Erythrocyte distribution width (RBC) [Ratio] 14.5 % Normal 11.5-14.5 [facility] Comment on above: Performed By: #### B MP3, BNP3, CK3, TROPN, HEMDF #### [facility] [address] [place] [address] Granulocytes/100 WBC (Bld) 34.0 % Low 40.0-80.0 [facility] Comment on above: Performed By: #### B MP3, BNP3, CK3, TROPN, HEMDF #### [facility] [address] [place] [address] Hematocrit (Bld) [Volume fraction] 32.9 % Low 40.0-52.0 [facility] Comment on above: Performed By: #### B MP3, BNP3, CK3, TROPN, HEMDF #### [facility] [address] [place] [address] Hemoglobin (Bld) [Mass/Vol] 11.4 g/dL Low 13.0-18.0 [facility] Comment on above: Performed By: #### B MP3, BNP3, CK3, TROPN, HEMDF #### [facility] [address] [place] [address] Lymphocytes (Bld) [#/Vol] 3.3 10*3/uL Normal 1.0-4.3 [facility] Comment on above: Performed By: #### B MP3, BNP3, CK3, TROPN, HEMDF #### [facility] [address] [place] [address] Lymphocytes/100 WBC (Bld) 51.4 % High 20.0-40.0 [facility] Comment on above: Performed By: #### B MP3, BNP3, CK3, TROPN, HEMDF #### [facility] [address] [place] [address] MCH (RBC) [Entitic mass] 29.2 pg Normal 26.0-34.0 [facility] Comment on above: Performed By: #### B MP3, BNP3, CK3, TROPN, HEMDF #### [facility] [address] [place] [address] MCHC 34.6 % Normal 32.0-36.0 [facility] Comment on above: Performed By: #### B MP3, BNP3, CK3, TROPN, HEMDF #### [facility] [address] [place] [address] MCV (RBC) [Entitic vol] 84.3 fL Normal 80.0-98.0 [facility] Comment on above: Performed By: #### B MP3, BNP3, CK3, TROPN, HEMDF #### [facility] [address] [place] [address] Monocytes (Bld) [#/Vol] 0.6 10*3/uL Normal 0.0-0.8 [facility] Comment on above: Performed By: #### B MP3, BNP3, CK3, TROPN, HEMDF #### [facility] [address] [place] [address] Monocytes/100 WBC (Bld) 8.5 % Normal 2.0-10.0 [facility] Comment on above: Performed By: #### B MP3, BNP3, CK3, TROPN, HEMDF #### [facility] [address] [place] [address] Platelet mean volume (Bld) [Entitic vol] 7.6 fL Normal 7.4-12.4 [facility] Comment on above: Result Comment: MPV is a calculated measurement using platelet volume ratio. Performed By: #### B MP3, BNP3, CK3, TROPN, HEMDF #### [facility] [address] [place] [address] Platelets (Bld) [#/Vol] 246 10*3/uL Normal 140-440 [facility] Comment on above: Performed By: #### B MP3, BNP3, CK3, TROPN, HEMDF #### [facility] [address] [place] [address] RBC (Bld) [#/Vol] 3.90 10*6/uL Low 4.40-5.90 [facility] Comment on above: Performed By: #### B MP3, BNP3, CK3, TROPN, HEMDF #### [facility] [address] [place] [address] WBC (Bld) [#/Vol] 6.5 10*3/uL Normal 3.6-10.7 [facility] Comment on above: Performed By: #### B MP3, BNP3, CK3, TROPN, HEMDF #### [facility] [address] [place] [address] Magnesiumon 07-15-2022 Magnesium [Mass/Vol] 2.0 mg/dL Normal 1.6-2.3 [facility] Comment on above: Performed By: #### B MP3, BNP3, CK3, TROPN, HEMDF #### [facility] [address] [place] [address] Magnesium [Mass/Vol] 2.0 mg/dL 1.6 - 2 .3 mg/dL [facility] Work Phone: Test Performed by [facility], [address] [place] [address] [facility] Work Phone: No Panel InformationOrdered By: Laura Hooks on 07-15-2022 Interpretation and review of laboratory results Abnormal [facility] No Panel Informationon 07-15 Test Performed by [facility], [address] [place], [place] [address] [facility] Test Performed by [facility], [address] [place] [address] [facility] Add On Lab Teston 07-14-2022 Add On Rejected [facility] Comment on above: ETHANOL NEEDS UNOPEN ED GREEN TOP TUBE, PLEASE DRAW Test Performed by [facility], [address] [place], [place] [address] [facility] Add On Accepted [facility] Comment on above: Specimen available & acceptable for analysis. Test Performed by [facility], [address] [place], [place] [address] [facility] Add on test from HISon 07-14 Add on test from HIS Rejected Normal [facility] Comment on above: Result Comment: CLAUDIA MASONL NEEDS UNOPENED GREEN TOP TUBE, PLEASE DRAW Performed By: #### A DDON #### [facility] [address] [place] [address] Add on test from HIS Accepted Normal [facility] Comment on above: Result Comment: Spec imen available & acceptable for analysis. Performed By: #### B MP3, BNP3, CK3, TROPN, HEMDF #### [facility] [address] [place] [address] Basic Metabolic Panelon 06-28 Calcium [Mass/Vol] 9.1 mg/dL Normal 8.4-10.4 [facility] Comment on above: Performed By: #### B MP3, BNP3, CK3, TROPN, HEMDF #### [facility] [address] [place] [address] Glucose [Mass/Vol] 84 mg/dL Normal 70-100 [facility] Comment on above: Performed By: #### B MP3, BNP3, CK3, TROPN, HEMDF #### [facility] [address] [place] [address] Urea nitrogen [Mass/Vol] 43 mg/dL High 04-13 [facility] Comment on above: Performed By: #### B MP3, BNP3, CK3, TROPN, HEMDF #### [facility] [address] [place] [address] Anion gap [Moles/Vol] 14 mmol/L High 3-13 [facility] Comment on above: Performed By: #### B MP3, BNP3, CK3, TROPN, HEMDF #### [facility] [address] [place] [address] CO2 [Moles/Vol] 19 mmol/L Low 22-30 [facility] Comment on above: Performed By: #### B MP3, BNP3, CK3, TROPN, HEMDF #### [facility] [address] [place] [address] Creatinine [Mass/Vol] 1.29 mg/dL High 0.52-1.25 [facility] Comment on above: Performed By: #### B MP3, BNP3, CK3, TROPN, HEMDF #### [facility] [address] [place] [address] GFR/1.73 sq M.predicted among blacks MDRD (S/P/Bld) [Vol rate/Area] 80.9 mL/min/{1.73_m2} Normal >60 [facility] Comment on above: Performed By: #### B MP3, BNP3, CK3, TROPN, HEMDF #### [facility] [address] [place] [address] GFR/1.73 sq M.predicted among non-blacks MDRD (S/P/Bld) [Vol rate/Area] 69.8 mL/min/{1.73_m2} Normal >60 [facility] Comment on above: Result Comment: KDIG O guidelines provide the following GFR categories: Stage GFR(ml/min/1.73 m2) Terms G1 >=90 Normal or high G2 60-89 Mildly decreased* G3a 45-59 Mildly to moderately decreased G3b 30-44 Moderately to severely decreased G4 15-29 Severely decreased G5 <15 Kidney failure *Relative to young adult level. In the absence of evidence of kidney damage, neither GFR category G1 nor G2 fulfill the criteria for CKD. The CKD-EPI equation is validated in individuals 18 years of age and older. Currently the best equation for estimating glomerular filtration rate (GFR) from serum creatinine in children is the Bedside Jeffers equation. It is less accurate in patients with extremes of muscle mass, restriction of dietary protein, ingestion of creatine, extra-renal metabolism of creatinine, or treatment with medications that affect renal tubular creatinine secretion. Performed By: #### B MP3, BNP3, CK3, TROPN, HEMDF #### [facility] [address] [place] [address] Potassium [Moles/Vol] 4.0 mmol/L Normal 3.5-5.1 [facility] Comment on above: Performed By: #### B MP3, BNP3, CK3, TROPN, HEMDF #### [facility] [address] [place] [address] Chloride [Moles/Vol] 106 mmol/L Normal 98-107 [facility] Comment on above: Performed By: #### B MP3, BNP3, CK3, TROPN, HEMDF #### [facility] [address] [place] [address] Sodium [Moles/Vol] 139 mmol/L Normal 135-145 [facility] Comment on above: Performed By: #### B MP3, BNP3, CK3, TROPN, HEMDF #### [facility] [address] [place] [address] Anion gap [Moles/Vol] 14 mmol/L High 3 - 13 mmol/L [facility] Calcium [Mass/Vol] 9.1 mg/dL 8.4 - 10. 4 mg/dL [facility] Chloride [Moles/Vol] 106 mmol/L 98 - 10 7 mmol/L [facility] CO2 [Moles/Vol] 19 mmol/L Low 22 - 30 mmol/L [facility] Creatinine [Mass/Vol] 1.29 mg/dL High 0.52 - 1.25 mg/dL [facility] EGFR IF NonAfrican Indian 69.8 mL/min 60 - PINF mL/min [facility] Comment on above: KDIGO guidelines pro vide the following GFR categories: Stage GFR(ml/min/1.73 m2) Terms G1 >=90 Normal or high G2 60-89 Mildly decreased* G3a 45-59 Mildly to moderately decreased G3b 30-44 Moderately to severely decreased G4 15-29 Severely decreased G5 <15 Kidney failure *Relative to young adult level. In the absence of evidence of kidney damage, neither GFR category G1 nor G2 fulfill the criteria for CKD. The CKD-EPI equation is validated in individuals 18 years of age and older. Currently the best equation for estimating glomerular filtration rate (GFR) from serum creatinine in children is the Bedside Jeffers equation. It is less accurate in patients with extremes of muscle mass, restriction of dietary protein, ingestion of creatine, extra-renal metabolism of creatinine, or treatment with medications that affect renal tubular creatinine secretion. GFR/1.73 sq M.predicted among blacks MDRD (S/P/Bld) [Vol rate/Area] 80.9 mL/min/{1.73_m2} 60 - PINF mL/min [facility] Glucose [Mass/Vol] 84 mg/dL 70 - 100 mg/dL [facility] Interpretation and review of laboratory results Abnormal [facility] Potassium [Moles/Vol] 4.0 mmol/L 3.5 - 5.1 mmol/L [facility] Sodium [Moles/Vol] 139 mmol/L 135 - 145 mmol/L [facility] Urea nitrogen (BldV) [Mass/Vol] 43 mg/dL High 7 - 17 mg/dL [facility] Test Performed by [facility], [address] [place] [address] LAB [facility] Brain Natriuretic Peptideon 07-14-2022 Natriuretic peptide B (Bld) [Mass/Vol] 93 pg/mL 0 - 125 pg/mL [facility] CBC with Auto Differentialon 07-14-2022 Absolute Baso # 0.1 10*3/uL 0 - 0.2 10*3/uL [facility] Absolute Neut # 10.7 10*3/uL High 1.8 - 7 10*3/uL [facility] Basophils/100 WBC (Bld) 0.6 % 0 - 2 % [facility] Eosinophils (Bld) [#/Vol] 0.1 10*3/uL 0 - 0.5 10*3/uL [facility] Eosinophils/100 WBC (Bld) 0.7 % Low 1 - 6 % [facility] Granulocytes/100 WBC (Bld) 78.4 % 40 - 80 % [facility] Hematocrit (Bld) [Volume fraction] 40.7 % 40 - 52 % [facility] Hemoglobin (Bld) [Mass/Vol] 13.6 g/dL 13 - 18 g/dL [facility] Interpretation and review of laboratory results Abnormal [facility] Lymphocytes (Bld) [#/Vol] 2.0 10*3/uL 1 - 4.3 10*3/uL [facility] Lymphocytes/100 WBC (Bld) 14.4 % Low 20 - 40 % [facility] MCH (RBC) [Entitic mass] 28.1 pg 26 - 34 pg [facility] MCHC (RBC) [Mass/Vol] 33.4 % 32 - 36 % [facility] MCV (RBC) [Entitic vol] 84.1 fL 80 - 98 fL [facility] Monocytes (Bld) [#/Vol] 0.8 10*3/uL 0 - 0.8 10*3/uL [facility] Monocytes/100 WBC (Bld) 5.9 % 2 - 10 % [facility] Platelet distribution width (Bld) [Ratio] 14.9 % High 11.5 - 14.5 % [facility] Platelet mean volume (Bld) [Entitic vol] 7.8 fL 7.4 - 12.4 fL [facility] Comment on above: MPV is a calculated measurement using platelet volume ratio. Platelets (Bld) [#/Vol] 309 10*3/uL 140 - 440 10*3/uL [facility] RBC (Bld) [#/Vol] 4.83 10*6/uL 4.4 - 5.9 10*6/uL [facility] WBC (Bld) [#/Vol] 13.6 10*3/uL High 3.6 - 10.7 10*3/uL [facility] Test Performed by [facility], [address] [place], [place] [id number] [place] [address] LAB [facility] CKon 07-14-2022 CK [Catalytic activity/Vol] 2880 U/L High 30-170 [facility] Comment on above: Performed By: #### B MP3, BNP3, CK3, TROPN, HEMDF #### [facility] [address] [place] [address] CK [Catalytic activity/Vol] 2880 U/L High 30 - 170 U/L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 [facility] Comment on above: Performed By: #### B MP3, BNP3, CK3, TROPN, HEMDF #### [facility] [address] [place] [address] Platelet mean volume (Bld) [Entitic vol] 7.8 fL Normal 7.4-12.4 [facility] Comment on above: Result Comment: MPV is a calculated measurement using platelet volume ratio. Performed By: #### B MP3, BNP3, CK3, TROPN, HEMDF #### [facility] [address] [place] [address] Platelets (Bld) [#/Vol] 309 10*3/uL Normal 140-440 [facility] Comment on above: Performed By: #### B MP3, BNP3, CK3, TROPN, HEMDF #### [facility] [address] [place] [address] RBC (Bld) [#/Vol] 4.83 10*6/uL Normal 4.40-5.90 [facility] Comment on above: Performed By: #### B MP3, BNP3, CK3, TROPN, HEMDF #### [facility] [address] [place] [address] WBC (Bld) [#/Vol] 13.6 10*3/uL High 3.6-10.7 [facility] Comment on above: Performed By: #### B MP3, BNP3, CK3, TROPN, HEMDF #### [facility] [address] [place] [address] NT pro BNPon 07-14-2022 Natriuretic peptide B (Bld) [Mass/Vol] 93 pg/mL Normal 0-125 [facility] Comment on above: Performed By: #### B MP3, BNP3, CK3, TROPN, HEMDF #### [facility] [address] [place] [address] No Panel Informationon 07-14 Test Performed by [facility], [address] [place], [place] [id number] [place] [address] LAB [facility] Radiology Study observation (narrative) [facility] Work Phone: Troponin Ion 07-14-2022 Troponin I.cardiac [Mass/Vol] ng/mL Normal 0.000-0.034 [facility] Comment on above: Result Comment: . Performed By: #### B MP3, BNP3, CK3, TROPN, HEMDF #### [facility] [address] [place] [address] Troponin x1on 07-14-2022 Troponin I.cardiac [Mass/Vol] ng/mL 0 - 0.034 ng/mL [facility] Comment on above: . Urine Drug Screenon 07-14-20 22 Amphetamines, urine Positive [facility] Barbiturates, Urine Negative [facility] Benzodiazepine Ur Qual Negative [facility] Cocaine Metabolites, Ur Positive S [facility] Methadone, Urine Negative [facility] Opiates, Urine Negative [facility] Oxycodone Screen, Ur Negative [facility] A PCP, Urine Negative [facility] Comment on above: The expected value f or all of the drugs listed above is Negative. The following drugs or drug groups have been screened for by Immunoassay at the following thresholds: Amphetamine class (1000 ng/mL), Barbiturates (200 ng/mL), Benzodiazepines (200 ng/mL), Cocaine (300 ng/mL), Methadone (300 ng/mL), Opiates (300 ng/mL), Oxycodone (100 ng/mL), and PCP (25 ng/mL). NOTE: These results are for medical treatment only. Analysis performed using non-forensic procedures. POSITIVE results are NOT confirmed by a more specific alternative method unless requested. If confirmation is needed, request confirmation under separate order. Test Performed by [facility], [address] [place] [address] LAB [facility] XR CHEST PORTABLEon 07-14-20 Patient Name: KHANH ROCKWELL Diagnostic Radiology ACCESSION EXAM DATE/TIME PROCEDURE ORDERING PROVIDER [id number] 07/14/2022 05:48 EDT CR Chest Portable [id number] KeyshaALESIA CRENSHAW CPT code 31520 Reason For Exam (CR Chest Portable) chest pain Report Clinical History: chest pain Comparison: 07/29/2014 Technique: Single AP radiograph of the chest. Findings: Cardiomediastinal silhouette and pulmonary vasculature is within normal limits. The lungs and pleural spaces are clear. No sizable pneumothorax. Impression: No acute consolidative process. Report Dictated on --- Final --- Dictating Physician: MD TUCKER JAMES Signed Date and Time: 07/14/2022 6:00 am Signed by: MD TUCKER JAMES Transcribed Date and Time: 07/14/2022 6:01 [facility] Nirav Tucker MD - 07/14/2022 [id number] Radiology ACCESSION EXAM DATE/TIME PROCEDURE ORDERING PROVIDER [id number] 07/14/2022 05:48 EDT CR Chest Portable [id number] ALESIA CULVER CPT code 06243 Reason For Exam (CR Chest Portable) chest pain Report Clinical History: chest pain Comparison: 07/29/2014 Technique: Single AP radiograph of the chest. Findings: Cardiomediastinal silhouette and pulmonary vasculature is within normal limits. The lungs and pleural spaces are clear. No sizable pneumothorax. Impression: No acute consolidative process. Report Dictated on --- Final --- Dictating Physician: MD TUCKER JAMES Signed Date and Time: 07/14/2022 6:00 am Signed by: MD TUCKER JAMES Transcribed Date and Time: 07/14/2022 6:01 [facility] Work Phone: XR CHEST PORTABLEOrdered By: Nirav Tucker on 07-14-2022 [facility] Work Phone: Absolute lymphocyte counton 03-31-2022 Lymphocytes Auto (Unsp spec) [#/Vol] 5.95 10*3/uL 0.83-4.51 [facility] Work Phone: Basophil percentageon 2021 Basophils/100 WBC (Bld) 0.6 % 0-1 [facility] Work Phone: [phone] Chloride [Moles/Vol] 106 mmol/L 98-107 [facility] Work Phone: [phone] Eosinophils/100 WBC (Bld) 3.2 % 0-5 [facility] Work Phone: [phone] Glucose [Mass/Vol] 103 mg/dL 74-106 [facility] Work Phone: Comment on above: Fasting Glucose resu lt from 100 to 125 mg/dL suggests IMPAIRED HOMEOSTASIS per A.D.A. criteria. Neutrophils (Bld) [#/Vol] 6.6 10*3/uL 2.0-7.7 [facility] Work Phone: Neutrophils/100 WBC (Bld) 47.1 % 47-70 [facility] Work Phone: Potassium [Moles/Vol] 3.7 mmol/L 3.5-5.1 [facility] Work Phone: Sodium [Moles/Vol] 139 mmol/L 136-145 [facility] Work Phone: WBC (Bld) [#/Vol] 13.9 10*3/uL 4.4-11.0 [facility] Work Phone: Blood erythrocytes count (nu mber/volume)on 03-31-2022 RBC (Bld) [#/Vol] 5.35 10*6/uL 4.6-6.2 [facility] Work Phone: Blood hemoglobin measurement (mass/volume)on 03-31-2022 Hemoglobin (Bld) [Mass/Vol] 14.7 g/dL 13.0-16.5 [facility] Work Phone: Blood lymphocytes/100 leukoc yteson 03-31-2022 Lymphocytes/100 WBC (Bld) 42.7 % 19-41 [facility] Work Phone: Blood manual differential co mment interpretation (narrative result)on 03-31-2022 Manual differential comment Irwin (Bld) [Interp] SCANNED [facility] Work Phone: Comment on above: LYMPHOCYTOSIS NOTED Blood monocytes/100 leukocyt eson 03-31-2022 Monocytes/100 WBC (Bld) 6.0 % 0-10 [facility] Work Phone: Blood platelet mean volumeon 03-31-2022 Platelet mean volume (Bld) [Entitic vol] 9.2 fL 6.2-12.0 [facility] Work Phone: Determination of erythrocyte mean corpuscular volume (MCV)on 03-31-2022 MCV (RBC) [Entitic vol] 84.5 fL 80-94 [facility] Work Phone: Hematocrit Auto (Bld) [Volum e fraction]on 03-31-2022 Hematocrit (Bld) [Volume fraction] 45.2 % 40-54 [facility] Work Phone: Laboratory - Chemistry and C hemistry - challengeon 03-31-2022 CO2 [Moles/Vol] 25.0 mmol/L 21.0-32.0 [facility] Work Phone: Urea nitrogen/Creatinine [Mass ratio] 13.5 mg/mg 10-20 [facility] Work Phone: Laboratory - Hematology and Cell countson 03-31-2022 Erythrocyte distribution width (RBC) [Entitic vol] 44.4 fL 35.1-43.9 [facility] Work Phone: Erythrocyte distribution width (RBC) [Ratio] 14.6 % 11.6-14.6 [facility] Work Phone: Immature granulocytes/100 WBC (Bld) 0.400 % 0.0-0.9 [facility] Work Phone: Comment on above: IG% - Immature Granu locytes (promyelocytes, myelocytes and metamyelocytes) > 1% indicates that a LEFT SHIFT is Present. MCH (RBC) [Entitic mass] 27.5 pg 27.0-32.0 [facility] Work Phone: Nucleated RBC/100 WBC (Bld) [Ratio] 0 % 0-5 [facility] Work Phone: MCHC Auto (RBC) [Mass/Vol]on 03-31-2022 MCHC (RBC) [Mass/Vol] 32.5 g/dL 32-36 [facility] Work Phone: No Panel Informationon 03-31 D-Dimer Quantitative (PE/DVT) 0.66 FEU/ug/m 0.27-0.49 [facility] Work Phone: Comment on above: D-Dimer ELEVATED (>0 .49): Additional studies and clinicalassessments are indicated to conclude diagnosis of:Deep Vein Thrombosis (DVT) or Pulmonary Embolism (PE)CRITICAL VALUE VERIFIED. CALLED TO [id number] Caroline Rodriguez.RESULTS READ BACK BY SAME . Estimated Creatinine Clearance Calc 91.12 ml/min [facility] Work Phone: Estimated GFR (MDRD) Amer 95 mL/min >60 [facility] Work Phone: Comment on above: GFR Calc Estimated GFR (MDRD) Non-Af Amer 79 mL/min >60 [facility] Work Phone: Comment on above: Non- GFR Calc Troponin I High Sensitivity < 3 pg/mL 3.0-78.0 [facility] Work Phone: Comment on above: Please Note: New Norma t Units and Gender Specific Reference Ranges. For more information see Policy Stat Procedure [facility] High Sensitivity Troponin (TNIH) and attachments. Platelets bldon 03-31-2022 Platelets (Bld) [#/Vol] 464 10*3/uL 150-450 [facility] Work Phone: Serum or plasma calcium dalia urement (mass/volume)on 03-31-2022 Calcium [Mass/Vol] 10.3 mg/dL 8.5-10.1 [facility] Work Phone: Serum or plasma creatinine m easurement (mass/volume)on 03-31-2022 Creatinine [Mass/Vol] 1.11 mg/dL 0.70-1.30 [facility] Work Phone: Comment on above: The validity of the calculated GFR & GFRAA in patients over 70 years has not been determined. Clinical correlation is essential. Serum or plasma urea nitroge n measurement (mass/volume)on 03-31-2022 Urea nitrogen [Mass/Vol] 15 mg/dL 7-18 [facility] Work Phone: Thin prep Papanicolaou smear with manual screeningon 03-31-2022 Thin prep Papanicolaou smear with manual screening 8 5-15 [facility] Work Phone: Marzena 08-09-2020 LATONIA Telephone (AGINTMAC) KHANH DE LA VEGA ([id number]) 1985 M Date Time Provider Department 08/09/[address] [facility] During your visit today, we recorded the following information about you: Vanda Steph Olmstead 08/09/2020 10:02 AM Signed Discharge summary and demographics for this patient has been faxed to [facility]. Vanda Olmstead STEPH 08/09/20 10:02 AM Allergies As of Date: 08/09/2020 Noted Allergy Reaction PENICILLINS 12/14/2017 7 - Swelling SULFA (SULFONAMIDE ANTIBIOTICS) 12/14/2017 7 - Swelling Date Reviewed: 08/08/2020 Reviewed by: Erica (Rn) INDY Eldridge - Fully Assessed Reason for Visit: Transition Of Care [4074] Cmt: 08/08/2020 DC summary sent to [facility] Prescriptions as of 08/09/2020 Sig: METHADONE 5 MG TABLET One po tid x 5 days then one * VANCOMYCIN 1 GRAM/200 ML IN D* Inject 200 mL intravenously e* ACETAMINOPHEN 325 MG TABLET Take 2 tablets by mouth every* HYDROXYZINE HCL 50 MG TABLET Take 1 tablet by mouth every * NICOTINE 14 MG/24 HR DAILY TR* Apply 1 Patch as directed onc* SENNOSIDES 8.6 MG-DOCUSATE SO* Take 2 tablets by mouth twice* CIPROFLOXACIN 750 MG TABLET Take 1 tablet by mouth twice * Problem List As Of Date 08/09/2020 Noted Resolved Severe episode of recurrent major depressive di*02/10/2018 Methamphetamine dependence (HCC) [F15.20] 02/11/2018 Cannabis dependence (HCC) [F12.20] 02/11/2018 Tobacco abuse [Z72.0] 02/11/2018 02/17/2018 Nicotine use disorder, F17.2 [F17.200] 02/17/2018 Substance induced mood disorder (HCC) [F19.94] 02/17/2018 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 Mild protein-calorie malnutrition (HCC) [E44.1] 07/19/2020 07/27/2020 Hyponatremia [E87.1] 07/19/2020 COVID-19 [U07.1] 07/22/2020 07/26/2020 Encounter Status:Closed by VANDA OLMSTEAD LPN on 08/09/20 [facility] CASE MANAGEMon 08-08-2020 CASE MANAGEM HNO ID: [id number] Author: Jennifer Grace (Sw) Service: Social Work Author Type: Product Transfer Pumper Type: Care Mgt Progress Note Filed: 08/08/2020 4:12 PM Note Text: CARE MANAGEMENT PROGRESS NOTE SERVICE DATE: 08/08/2020 SERVICE TIME: 4:08 PM LOS: 6 days Admission Date: 08/02/2020 DISCHARGE ARRANGEMENT (list agency and phone number) Discharge Arrangement: long term facility Provider Name: [facility] CAREGIVER ASSESSMENT: HANDOFF COMMUNICATION: TRANSPORTATION ARRANGEMENTS: Transportation Arrangements: Ambulance/[employer] Transportation Agency and Phone #:: [facility] ( [facility] ) [phone] / [phone] Date of Trip: 08/08/20 Time of Trip: 1900 Type of Service: BLS Non-emergency Is Patient Medicaid Pending?: No Stripe Marker Location: [facility] Destination: [facility] in [place] Financial Care Management Responsibility: None ADDITIONAL CONTACT RESOURCES: SIGNATURE: MARIS Mariee PATIENT NAME: Khanh De La Vega DATE: August 08, 2020 TIME: 4:08 PM PAGER/CONTACT #: [phone] [facility] NURSING PROGon 08-08-2020 NURSING PROG HNO ID: [id number] Author: Erica (Rn) INDY Eldridge Service: Nursing Author Type: Registered Nurse Type: Nursing Progress Note Filed: 08/08/2020 6:11 PM Note Text: This RN attempted to call report to [facility] three times with no answer at multiple extensions. Paperwork has been printed for facility including after visit summary. Patient alert and oriented. [facility] NURSING PROG HNO ID: [id number] Author: Fabienne (Rn) INDY Bah Service: Nursing Author Type: Registered Nurse Type: Nursing Progress Note Filed: 08/08/2020 5:49 AM Note Text: Patient called nurse into room to make aware of new painful nodule on R arm several inches below PICC. Patient stated he noticed it this morning. Arm is not swollen or red. Patient's PICC flushes and draws blood and is not painful. RN notified House med resident. Resident ordered an ultrasound of the R upper extremity. Will continue to monitor patient, This progress note was completed by: Fabienne Bah RN [facility] PLAN OF CAREon 08-08-2020 PLAN OF CARE HNO ID: [id number] Author: Janis Bolaños (Postal Service Mail Processor) Service: Pharmacy Author Type: Pharmacist Type: Plan of Care Filed: 08/08/2020 4:55 PM Note Text: DISCHARGE MEDICATION REVIEW BY PHARMACY Patient Name: Khanh De La Vega Account #: Data Unavailable Admission Date: 08/02/2020 Date of Contact: August 08, 2020 Time of Contact: 4:54 PM Medication list was reviewed by a Pharmacist for drug interactions or drug related problems:Yes Below is a summary of pharmacist recommendations discussed with LIP: No Recommendations at this time from Discharge Medication List. Janis Bolaños, Postal Service Mail Processor August 08, 2020 4:54 PM Pager: [phone] 08/08/2020 4:54 PM Medication List CHANGE how you take these medications methadone 5 mg tablet Commonly known as: DOLOPHINE One po tid x 5 days then one po bid x 5 days then one tab daily for 5 days FOR PAIN What changed: additional instructions CONTINUE taking these medications acetaminophen 325 mg tablet Commonly known as: TYLENOL Take 2 tablets by mouth every 6 hours as needed. ciprofloxacin HCl 750 mg tablet Commonly known as: CIPRO Take 1 tablet by mouth twice daily. hydrOXYzine HCl 50 mg tablet Commonly known as: ATARAX Take 1 tablet by mouth every 6 hours as needed (Anxiety/ agitation). nicotine 14 mg/24 hr Commonly known as: NICODERM Apply 1 Patch as directed once daily. senna-docusate 8.6-50 mg per tablet Commonly known as: SENNA-S Take 2 tablets by mouth twice daily. vancomycin 1 gram/200 mL in D5W Commonly known as: VANCOCIN Inject 200 mL intravenously every 8 hours for 20 days. STOP taking these medications bisacodyl 10 mg Supp Commonly known as: DULCOLAX ondansetron 4 mg tablet Commonly known as: ZOFRAN polyethylene glycol 3350 17 gram packet Commonly known as: MIRALAX, GLYCOLAX prochlorperazine 10 mg tablet Commonly known as: COMPAZINE Normal [facility] PROGRESSon 08-08-2020 PROGRESS HNO ID: [id number] Author: Selina Nicholas Service: Hospital Medicine Author Type: Resident Type: Progress Notes Filed: 08/08/2020 1:37 PM Note Text: Attestation signed by Elijah Hill at 08/08/2020 5:35 PM I saw and evaluated the patient. Discussed with the resident and agree with resident's findings and plan as documented in the resident's note. HOUSE MEDICINE SERVICE PROGRESS NOTE SERVICE DATE: August 08, 2020 NIGHT AND WEEKEND COVERAGE: From 6 AM to 5 PM: You may reach the House Medicine sales and marketing intern currently assigned to this patient by finding their pager number on the treatment team (they will be assigned as the sales and marketing intern or resident). It is the last four digits in the phone number beginning with ([phone]). We encourage the use of Doximity Secure Chat. SUBJECTIVE HPI: 35 year old male with PMHx IV drug use, schizophrenia, depression and anxiety, presents to [facility] from halfway facility on 08/02/2020. He was recently admitted to [facility] from 07/17/20 to 07/31/2020 for suspicion of infective endocarditis, however transthoracic echocardiogram did not show vegetations. Hospital course was complicated with COVID infection AND hepatic lesions found on MRI. He was transferred to halfway [facility] with a PICC line and to continue Vancomycin + Ciprofloxacin [stop date on 09/05/20]. He was planned to have transthoracic echocardiogram after 4 weeks and to follow up with infectious disease [Dr. Bowens] and gastroenterology [Dr. Hernández] for his hepatic lesions. ? While at the halfway facility, he was having a sponge bath, and his bandage around his picc line was removed resulting in his picc line to fall out on 08/01. The day afterwards, his right arm was drenched in blood and he felt unsafe since they did not check his vitals or care for his PICC line, so he wished to come back to Emergency Department to be sent to a different halfway facility. Patient will be admitted to House Medicine for replacement of PICC line and safe discharge to halfway facility. Interval Events: Overnight pt was complaining of pain at the site of PICC line, so R hand US was ordered by night team, will follow up. Pt is hemodynamically stable, breathing on room air with SPO2 of 98%. On regular diet. No fresh labs for today, In labs from 08/06/2020,WBC 12.25 ( 17.03 yesterday), Hb 9.5 (10.4 yesterday), hyponatremia 130 (130 yesterday), Albumin 2.9,Raised ALP of 155. Pt was accepted by [facility] [place] but expediated covid test came back positive and they denied acceptance of pt, Dr Bowens was contacted by social services analyst and she tried convincing the nursing facility that covid is resolved but they denied, waiting for placement in another facility. OBJECTIVE Medications: IV Infusions: - NaCl 0.9%, Last Rate: 100 mL/hr (08/07/201818) Scheduled: - vancomycin, 1 g, q 8 HR - methadone, 5 mg, TID 9a/3p/9p (BMT) - ciprofloxacin HCl, 750 mg, BID - enoxaparin, 40 mg, DAILY - sodium chloride 0.9 % (flush), 10 mL, q 12 H - vancomycin dosing and monitoring per pharmacy, , As Directed PRN: - sodium chloride 0.9 % (flush), 20 mL, PRN Vital Signs: BP 106/62 Pulse 86 Temp (Src) 98.6 (Oral) Resp 18 Ht 5' 10 (1.78m) Wt 156 lb 9.6 oz (71.0kg) SpO2 98% BMI 22.47 kg/(m2). O2 Therapy: Room Air Patient Vitals for the past 24 hrs: Pulse BP 08/03/20 0500 84 105/62 08/02/20 2037 68 125/79 08/02/20 1908 88 111/79 08/02/20 1800 81 102/68 08/02/20 1700 75 114/74 08/02/20 1600 ? 107/70 08/02/20 1503 88 121/87 Physical Exam Performed: GENERAL: alert, oriented to person, place, time NECK: supple without lymphadenopathy; no JVD; no thyromegaly CHEST: clear bilaterally to auscultation; normal chest movement; no rales or rhonchi HEART: regular rate and rhythm, normal S1 and S2, no murmurs, clicks, rubs, or gallops ABDOMEN: soft; nondistended; bowel sounds present; no hepatomegaly; no splenomegaly; no tenderness EXTREMITIES: Fluctuant painful nodule noticed on R arm near PICC line, no evidence of clubbing; no cyanosis; no deformity; no joint effusion; no edema NEURO: cranial nerves intact; no focal deficits; no confusion; no tremor; sensorium normal SKIN: no rash; no skin breakdown; no decubitus lesions HEME: no bruising; no adenopathy PSYCH: no evidence of depression; no anxiety; no agitation; no apparent hallucinations. Lines, Drains, and Airways Line Peripheral 08/02/20 1900 Assessment Short Left Antecubital 20 Gauge 5 days Central Line Single Lumen 08/03/20 1301 Peripherally Inserted (PICC) Right Arm 4.0 Bangladeshi 4 days Reviewed lines and needs to be continued: REASONS: Intravenous antibiotics Labs: No recent labs, since 08/03 CBC: Recent Labs 08/06/2081808/03/20526 WBC 12.25* 17.03* HB 9.5* 10.4* HCT 29.9* 31.5* PLT 300 279 MCV 83.3 81.8 RDWCV 14.8 15.6* COAG: Recent Labs 08/03/20526 APTT 33.0* INR 1.1 BMP: Recent Labs 08/06/2081808/05/20 1258 08/03/20526 GLUC 97 -- 105* NA 130* -- 130* K 4.0 -- 4.5 CHLOR 96* -- 96* CO2 26 -- 26 ANION 8* -- 8* BUN 11 -- 16 CREAT 0.74 0.85 0.81 CHEM: Recent Labs 08/06/2081808/03/20526 TPROT 8.3* -- CA 9.1 8.8 HEPATIC: Recent Labs 08/06/20818 ALKPHOS 155* ALT 11 AST 20 TBILI 0.4 URINALYSIS:No results for input(s): PH, SPGR, UGLUC, UBILI, UKET, UHB, UPROT, UROBIL, UWBC, SSA in the last 168 hours. Invalid input(s): NITR CARDIAC: No results for input(s): CKTEST, CKMB, CKMBP in the last 168 hours.TROPONIN@:8,No results found for: BNP:8)@ Intake/Output Summary (Last 24 hours) at 08/08/2020726 Last data filed at 08/08/2020 0524 Gross per 24 hour Intake ? Output 2850 ml Net -2850 ml Serum creatinine: 0.81 mg/dL 08/03/20526 Estimated creatinine clearance: 115.6 mL/min Standardized Care Interventions: Labs: Routine blood work not indicated for tomorrow ? ECHO 07/27/2020: - The left ventricle is normal in size. There is no left ventricular hypertrophy. Left ventricular systolic function is normal. EF = 60 ? 5% (visual est.) Left ventricular diastolic function was not evaluated. - The right ventricle is normal in size. Right ventricular systolic function is normal. - Mildly thickened tricuspid valve leaflets. No obvious evidence of endocarditis noted. ? EKG 07/17/2020: QTc 437 NORMAL SINUS RHYTHM NORMAL ECG MRI SPINE 07/30/2020: 1. ?Limited examination due to patient motion. 2. ?Degenerative-type bone marrow signal changes at the L4-L5 and L5-S1 levels. 3. ?Small hemangioma versus degenerative-type bone marrow signal changes involving the inferior C6 endplate. 4. ?T3 probable small benign hemangioma. 5. ?No definitive evidence of spinal discitis or osteomyelitis. ?No convincing evidence of osseous metastatic disease involving the spine. 6. ?T7-T8 small right paracentral disc protrusion with minimal anterior right cord deformity. ?No central canal stenosis. 7. ?Mild thoracic and lumbar degenerative disc bulging without central canal stenosis as detailed above. Cervical Anatomic Variant: ?None. ?Assume 7 cervical vertebrae with counting from the craniocervical junction. Anatomic Thoracic/Lumbar Variant: None. ?L4-5 is considered the level of the iliac crest and assume there are 5 lumbar-type vertebrae. MRI LIVER 07/17/2020: Multiple too numerous to count targetoid type lesions throughout the liver. Given patient's history, multiple hepatic abscesses are consideration. Metastatic disease is is not excluded. There is splenomegaly but no obvious focal lesions within the spleen. Enlarged lymph nodes in the periportal and peripancreatic region. Contracted gallbladder with gallstones CT CHEST/ABDOMEN 07/25/2020: Chest: 1. ?No consolidation or pleural effusion. ?No suspicious nodules. 2. ?No lymphadenopathy in the chest. Abdomen / Pelvis: 1. ?No acute intra-abdominal or pelvic findings. 2. ?Hepatic steatosis. 3. ?Indeterminate a 0.7 cm enhancing lesion in the anterior right hepatic dome for which nonemergent dedicated MRI might be obtained for further evaluation. 4. ?A few mildly prominent lymph nodes in the retroperitoneum, nonspecific in grossly unchanged since 10/2019. Assessment/Plan Problem List Cannabis dependence (HCC) Nicotine use disorder, F17.2 Infective endocarditis ? Concern for Infective endocarditis - Blood cultures negative. Negative fungal cultures. - Transthoracic echocardiogram [07/27] shows mildly thickened tricuspid valve leaflets, however no signs of endocarditis - Plan for transesophageal echocardiogram in [address] Bowens - ID recommended continuing Vanc/Cipro until 09/05/2020. At this time, no need for consult since antibiotic regimen is in place. Will continue to monitor for worsening symptoms, fevers. -PICC line in place. 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 ? Intrahepatic Lesions, Likely Abscesses vs Metastatic Disease - MRI Liver 07/27/2020 shows Multiple too numerous to count targetoid type lesions throughout the liver. Given patient's history, multiple hepatic abscesses are consideration. Metastatic disease is is not excluded. ? - Likely related to his history of IVDU, and hepatitis C positivity. - Potentially could obtain lesion biopsy?at a later date?as some are superficial anteriorly. - GI was consulted on previous admission and instructed to follow-up as outpatient. ? Nicotine dependence. - Consider nicotine patch per patient request ? H/o opioid use - Pain management consulted they recommended methadone 5 mg p.o. 3 times daily with plans to continue to taper. Thrombocytopenia(Resol stefany) Anti PF 4 Ab negative. Pt refusing to return to [facility]. Referrals sent to multiple SNF in the area. Await acceptance. Pt will need auth once a facility accepts and medically stable. Medication and Non-Pharmacologic VTE Prophylaxis/Anticoagul ants Anticoagulant AND Antiplatelet Medications (From admission, onward) Start Dose Route Frequency Ordered Stop 08/02/20 1900 enoxaparin 40 mg injection (LOVENOX) (Medical Risk Categories) 40 mg SUBCUTANEOUS DAILY 08/02/20 1850 -- 08/02/20 1900 pneumatic compression stockings (ct,oh) VTE Prophylaxis: VTE prophylaxis appropriate GI Prophylaxis: Not indicated Telemetry: Not indicated Disposition: Extended care / halfway facility Code Status: Full Code Plan of care discussed with: Provider SIGNATURE: Selina Nicholas MD PATIENT NAME: Khanh De La Vega DATE: August 08, 2020 TIME: 7:27 AM Page 7600 Normal [facility] US DVT UPPER RTon 08-08-2020 US DVT UPPER RT Final Report DATE OF EXAM: Aug 08 2020 10:18AM [facility] 1004 - US DVT UPPER RT / PROCEDURE REASON: Arm swelling or pain, DVT suspected Physician Interpretation EXAMINATION: RIGHT UPPER EXTREMITY DEEP VENOUS ULTRASOUND WITH DOPPLER IMAGING CLINICAL HISTORY: Right arm swelling. TECHNIQUE: Grayscale with compression maneuvers where accessible, color and spectral Doppler of the right internal jugular, subclavian, and axillary veins was performed. Grayscale with compression maneuvers of the right brachial, basilic and cephalic veins was also performed. The contralateral internal jugular and distal subclavian veins were imaged for comparison. Images were obtained and stored in a permanent archive. MQ: [email or web address] COMPARISON: None RESULT: RIGHT UPPER EXTREMITY DEEP VEINS Internal Jugular vein: Normal compression, normal spontaneous flow. Subclavian vein: Normal, spontaneous flow. Axillary vein: Normal compression, normal spontaneous flow. Brachial vein: Normal compression SUPERFICIAL VEINS Basilic vein: Portions of the mid and proximal basilic vein were poorly seen due to bandaging. Cephalic vein: Normal compression. LEFT UPPER EXTREMITY (FOR COMPARISON) DEEP VEINS Internal Jugular and Distal Subclavian veins: Normal compression, normal spontaneous flow. IMPRESSION: Negative study for DVT in the the right upper extremity. Negative study for superficial thrombophlebitis in the imaged segments of the right upper extremity. Limited evaluation of portions of the basilic vein due to bandaging. Life Support Technician: MORGAN Transcribe Date/Time: Aug 08 2020 10:28A Dictated by : DERIK WATERS MD This examination was interpreted and the report reviewed and electronically signed by: DERIK WATERS MD on Aug 08 2020 10:29AM EST [facility] CASE MANAGEMon 08-07-2020 CASE MANAGEM HNO ID: [id number] Author: Jennifer Grace (Sw) Service: Social Work Author Type: Product Transfer Pumper Type: Care Mgt Progress Note Filed: 08/07/2020 3:56 PM Note Text: CARE MANAGEMENT PROGRESS NOTE SERVICE DATE: 08/07/2020 SERVICE TIME: 3:50 PM LOS: 5 days Covid test is pending. [facility] will not accept pt if covid result is positive although informed them pt is on regular medical floor and per MD, is a resolved covid and is not contagious. SIGNATURE: MARIS Mariee PATIENT NAME: Khanh De La Vega DATE: August 07, 2020 TIME: 3:50 PM PAGER/CONTACT #: [phone] [facility] CONSULT PROGon 08-07-2020 CONSULT PROG HNO ID: [id number] Author: Janis Bolaños (Postal Service Mail Processor) Service: Pharmacy Author Type: Pharmacist Type: Consult Progress Note Filed: 08/07/2020 3:12 PM Note Text: PHARMACY VANCOMYCIN DOSING NOTE Patient Name: Khanh De La Vega Admission Date: 08/02/2020 Date of Consult: 08/07/2020 Time of Consult: 2:39 PM Indication: Endocarditis Goal Range: 15-25 mcg/mL RECOMMENDATIONS/PLAN: Pharmacy consulted for vancomycin dosing for Khanh De La Vega, a 35 year old, male who is being treated with vancomycin for endocarditis. 1. Patient is currently ordered Vancomycin 1.25 g IV q8h . Today is day 21 of therapy. 2. The most recent vancomycin level was 25.8 mcg/mL drawn at 1310 on 08/07/20. This is a ~6 hour level on the 21 day of therapy. 3. Will decrease vancomycin to 1 g with a dosing interval of q8h 4. The patient is being discharged to an ECF and vancomycin will be monitored and managed by [facility]. We will follow patient renal function, vancomycin levels and doses with you during the course of therapy. Additional recommendations will appear in follow up notes. If [place] [phone]. Age: [age] year old Allergies: ALLERGIES Allergen Reactions - Penicillins Swelling - Sulfa (Sulfonamide * Swelling Last 3 Encounter Wt Readings: Date: Wt: 08/02/2020 71.2 kg (157 lb) 07/17/2020 76.7 kg (169 lb 1.6 oz) 11/23/2019 81.6 kg (180 lb) Last 1 Encounter Ht Readings: Date: Ht: 08/02/2020 177.8 cm (5' 10) Estimated Creatinine Clearance: 139 mL/min (based on SCr of 0.74 mg/dL). Temp (24hrs), Av.9 ?C (98.4 ?F), Min:36.7 ?C (98.1 ?F), Max:37 ?C (98.6 ?F) - Current Temp: 36.9 ?C (98.4 ?F) Labs BUN (mg/dL) Date Value 08/06/2020 11 08/03/2020 16 07/31/2020 11 02/10/2018 16 04/23/2017 8 04/21/2017 10 Creatinine (mg/dL) Date Value 08/06/2020 0.74 08/05/2020 0.85 08/03/2020 0.81 02/10/2018 0.92 04/23/2017 0.81 04/21/2017 0.88 WBC Date Value 08/06/2020 12.25 k/uL (H) 08/03/2020 17.03 k/uL (H) 07/31/2020 12.86 k/uL (H) 02/10/2018 10.24 thou/cmm (H) 04/23/2017 9.9 thou/cmm 04/21/2017 9.9 thou/cmm Vancomycin Levels: Vancomycin (ug/mL) Date/Time Value 08/07/2020 1310 25.8 (H) 08/05/2020 1258 13.8 Janis Bolaños, Postal Service Mail Processor Normal [facility] PROGRESSon 08-07-2020 PROGRESS HNO ID: [id number] Author: Selina Nicholas Service: Hospital Medicine Author Type: Resident Type: Progress Notes Filed: 08/07/2020 10:04 AM Note Text: Attestation signed by Elijah Hill at 08/07/2020 5:58 PM I saw and evaluated the patient. Discussed with the resident and agree with resident's findings and plan as documented in the resident's note. HOUSE MEDICINE SERVICE PROGRESS NOTE SERVICE DATE: August 07, 2020 NIGHT AND WEEKEND COVERAGE: From 6 AM to 5 PM: You may reach the House Medicine sales and marketing intern currently assigned to this patient by finding their pager number on the treatment team (they will be assigned as the sales and marketing intern or resident). It is the last four digits in the phone number beginning with ([phone]). We encourage the use of Doximity Secure Chat. SUBJECTIVE HPI: 35 year old male with PMHx IV drug use, schizophrenia, depression and anxiety, presents to [facility] from halfway facility on 08/02/2020. He was recently admitted to [facility] from 07/17/20 to 07/31/2020 for suspicion of infective endocarditis, however transthoracic echocardiogram did not show vegetations. Hospital course was complicated with COVID infection AND hepatic lesions found on MRI. He was transferred to halfway facility with a PICC line and to continue Vancomycin + Ciprofloxacin [stop date on 09/05/20]. He was planned to have transthoracic echocardiogram after 4 weeks and to follow up with infectious disease [Dr. Bowens] and gastroenterology [Dr. Hernández] for his hepatic lesions. ? While at the halfway facility, he was having a sponge bath, and his bandage around his picc line was removed resulting in his picc line to fall out on 08/01. The day afterwards, his right arm was drenched in blood and he felt unsafe since they did not check his vitals or care for his PICC line, so he wished to come back to Emergency Department to be sent to a different halfway facility. Patient will be admitted to House Medicine for replacement of PICC line and safe discharge to halfway facility. Interval Events: Pt is hemodynamically stable, breathing on room air with SPO2 of 97%. On regular diet. No fresh labs for today, In labs from tomorrow,WBC 12.25 ( 17.03 yesterday), Hb 9.5 (10.4 yesterday), hyponatremia 130 (130 yesterday), Albumin 2.9,Raised ALP of 155. [facility] in [place] can accept pt. and pt in agreement, precert in process, covid test ordered. OBJECTIVE Medications: IV Infusions: - NaCl 0.9%, Last Rate: 100 mL/hr (08/07/20 0429) Scheduled: - vancomycin, 1.25 g, q 8 HR - methadone, 5 mg, TID 9a/3p/9p (BMT) - ciprofloxacin HCl, 750 mg, BID - enoxaparin, 40 mg, DAILY - sodium chloride 0.9 % (flush), 10 mL, q 12 H - vancomycin dosing and monitoring per pharmacy, , As Directed PRN: - sodium chloride 0.9 % (flush), 20 mL, PRN Vital Signs: BP 110/71 Pulse 85 Temp (Src) 98.4 (Oral) Resp 16 Ht 5' 10 (1.78m) Wt 157 lb (71.2kg) SpO2 97% BMI 22.53 kg/(m2). O2 Therapy: Room Air Patient Vitals for the past 24 hrs: Pulse BP 08/03/20 0500 84 105/62 08/02/20 2037 68 125/79 08/02/20 1908 88 111/79 08/02/20 1800 81 102/68 08/02/20 1700 75 114/74 08/02/20 1600 ? 107/70 08/02/20 1503 88 121/87 Physical Exam Performed: GENERAL: alert, oriented to person, place, time NECK: supple without lymphadenopathy; no JVD; no thyromegaly CHEST: clear bilaterally to auscultation; normal chest movement; no rales or rhonchi HEART: regular rate and rhythm, normal S1 and S2, no murmurs, clicks, rubs, or gallops ABDOMEN: soft; nondistended; bowel sounds present; no hepatomegaly; no splenomegaly; no tenderness EXTREMITIES: no evidence of clubbing; no cyanosis; no deformity; no joint effusion; no edema NEURO: cranial nerves intact; no focal deficits; no confusion; no tremor; sensorium normal SKIN: no rash; no skin breakdown; no decubitus lesions HEME: no bruising; no adenopathy PSYCH: no evidence of depression; no anxiety; no agitation; no apparent hallucinations. Lines, Drains, and Airways Line Peripheral 08/02/20 1900 Assessment Short Left Antecubital 20 Gauge 4 days Central Line Single Lumen 08/03/20 1301 Peripherally Inserted (PICC) Right Arm 4.0 Bangladeshi 3 days Reviewed lines and needs to be continued: REASONS: Intravenous antibiotics Labs: No recent labs, since 08/03 CBC: Recent Labs 08/06/2081808/03/20526 WBC 12.25* 17.03* HB 9.5* 10.4* HCT 29.9* 31.5* PLT 300 279 MCV 83.3 81.8 RDWCV 14.8 15.6* COAG: Recent Labs 08/03/20526 APTT 33.0* INR 1.1 BMP: Recent Labs 08/06/20 0819 08/05/20 1258 08/03/20526 GLUC 97 -- 105* NA 130* -- 130* K 4.0 -- 4.5 CHLOR 96* -- 96* CO2 26 -- 26 ANION 8* -- 8* BUN 11 -- 16 CREAT 0.74 0.85 0.81 CHEM: Recent Labs 08/06/2081808/03/20526 TPROT 8.3* -- CA 9.1 8.8 HEPATIC: Recent Labs 08/06/20818 ALKPHOS 155* ALT 11 AST 20 TBILI 0.4 URINALYSIS:No results for input(s): PH, SPGR, UGLUC, UBILI, UKET, UHB, UPROT, UROBIL, UWBC, SSA in the last 168 hours. Invalid input(s): NITR CARDIAC: No results for input(s): CKTEST, CKMB, CKMBP in the last 168 hours.TROPONIN@:8,No results found for: BNP:8)@ Intake/Output Summary (Last 24 hours) at 08/07/2020 0705 Last data filed at 08/07/2020 0237 Gross per 24 hour Intake ? Output 750 ml Net -750 ml Serum creatinine: 0.81 mg/dL 08/03/20526 Estimated creatinine clearance: 115.6 mL/min Standardized Care Interventions: Labs: Routine blood work not indicated for tomorrow ? ECHO 07/27/2020: - The left ventricle is normal in size. There is no left ventricular hypertrophy. Left ventricular systolic function is normal. EF = 60 ? 5% (visual est.) Left ventricular diastolic function was not evaluated. - The right ventricle is normal in size. Right ventricular systolic function is normal. - Mildly thickened tricuspid valve leaflets. No obvious evidence of endocarditis noted. ? EKG 07/17/2020: QTc 437 NORMAL SINUS RHYTHM NORMAL ECG MRI SPINE 07/30/2020: 1. ?Limited examination due to patient motion. 2. ?Degenerative-type bone marrow signal changes at the L4-L5 and L5-S1 levels. 3. ?Small hemangioma versus degenerative-type bone marrow signal changes involving the inferior C6 endplate. 4. ?T3 probable small benign hemangioma. 5. ?No definitive evidence of spinal discitis or osteomyelitis. ?No convincing evidence of osseous metastatic disease involving the spine. 6. ?T7-T8 small right paracentral disc protrusion with minimal anterior right cord deformity. ?No central canal stenosis. 7. ?Mild thoracic and lumbar degenerative disc bulging without central canal stenosis as detailed above. Cervical Anatomic Variant: ?None. ?Assume 7 cervical vertebrae with counting from the craniocervical junction. Anatomic Thoracic/Lumbar Variant: None. ?L4-5 is considered the level of the iliac crest and assume there are 5 lumbar-type vertebrae. MRI LIVER 07/17/2020: Multiple too numerous to count targetoid type lesions throughout the liver. Given patient's history, multiple hepatic abscesses are consideration. Metastatic disease is is not excluded. There is splenomegaly but no obvious focal lesions within the spleen. Enlarged lymph nodes in the periportal and peripancreatic region. Contracted gallbladder with gallstones CT CHEST/ABDOMEN 07/25/2020: Chest: 1. ?No consolidation or pleural effusion. ?No suspicious nodules. 2. ?No lymphadenopathy in the chest. Abdomen / Pelvis: 1. ?No acute intra-abdominal or pelvic findings. 2. ?Hepatic steatosis. 3. ?Indeterminate a 0.7 cm enhancing lesion in the anterior right hepatic dome for which nonemergent dedicated MRI might be obtained for further evaluation. 4. ?A few mildly prominent lymph nodes in the retroperitoneum, nonspecific in grossly unchanged since 10/2019. Assessment/Plan Problem List Cannabis dependence (HCC) Nicotine use disorder, F17.2 Infective endocarditis ? Concern for Infective endocarditis - Blood cultures negative. Negative fungal cultures. - Transthoracic echocardiogram [07/27] shows mildly thickened tricuspid valve leaflets, however no signs of endocarditis - Plan for transesophageal echocardiogram in [address] Bowens - ID recommended continuing Vanc/Cipro until 09/05/2020. At this time, no need for consult since antibiotic regimen is in place. Will continue to monitor for worsening symptoms, fevers. -PICC line in place. 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 ? Intrahepatic Lesions, Likely Abscesses vs Metastatic Disease - MRI Liver 07/27/2020 shows Multiple too numerous to count targetoid type lesions throughout the liver. Given patient's history, multiple hepatic abscesses are consideration. Metastatic disease is is not excluded. ? - Likely related to his history of IVDU, and hepatitis C positivity. - Potentially could obtain lesion biopsy?at a later date?as some are superficial anteriorly. - GI was consulted on previous admission and instructed to follow-up as outpatient. ? Nicotine dependence. - Consider nicotine patch per patient request ? H/o opioid use - Pain management consulted they recommended methadone 5 mg p.o. 3 times daily with plans to continue to taper. Thrombocytopenia(Resol stefany) Anti PF 4 Ab negative. Pt refusing to return to [facility]. Referrals sent to multiple SNF in the area. Await acceptance. Pt will need auth once a facility accepts and medically stable. Medication and Non-Pharmacologic VTE Prophylaxis/Anticoagul ants Anticoagulant AND Antiplatelet Medications (From admission, onward) Start Dose Route Frequency Ordered Stop 08/02/20 190 enoxaparin 40 mg injection (LOVENOX) (Medical Risk Categories) 40 mg SUBCUTANEOUS DAILY 08/02/20 1850 -- 08/02/201899 pneumatic compression stockings (ct,oh) VTE Prophylaxis: VTE prophylaxis appropriate GI Prophylaxis: Not indicated Telemetry: Not indicated Disposition: Extended care / halfway facility Code Status: Full Code Plan of care discussed with: Provider SIGNATURE: Selina Nicholas MD PATIENT NAME: Khanh De La Vega DATE: August 07, 2020 TIME: 7:05 AM Page [phone] [facility] SARS-CoV-2 RNA Resp Ql ELIANA+p robeon 08-07-2020 SARS-CoV-2 RNA Resp Ql ELIANA+probe COVID 19 RESULT: SARS-CoV-2 (Agent of COVID-19) Detected by PCR. This test has been authorized by FDA under an Emergency Use Authorization (EUA) [facility] Comment on above: Performed By: #### 9 4500-6 #### [facility] CLIA [id number] [address] [place] [address] VANCOMYCINon 08-07-2020 Vancomycin [Mass/Vol] 25.8 ug/mL High 10.0-20.0 [facility] Comment on above: Order Comment: Speci men Type: BLOOD SPECIMEN Result Comment: Refe rence ranges and high/low indicator flags are provided as general guidelines only. The treating physician must determine appropriate target levels/dosing based on the specific clinical situation. Performed By: #### 6 00-7 #### [facility] CLIA [id number] [address] [place] [address] 2018 CORONAVIRUSon 2019 CORONAVIRUS COVID 19 SOURCE SHRIMP PEELER: UPPER RESPIRATORY TRACT SWAB COVID 19 RESULT SHRIMP PEELER: Negative for COVID19 (SARS CoV2) by PCR. This test was developed and its performance characteristics determined by [facility] [place]. This test has been authorized by FDA under an Emergency Use Authorization (EUA). This test has been validated in accordance with the FDA's Guidance Document Policy for Diagnostics Testing in Laboratories Certified to Perform High Complexity Testing under CLIA prior to Emergency use Authorization for Coronavirus Disease 2019 during the Public Health Emergency issued on November 26, 2019. [facility] Comment on above: Performed By: #### C OVID ####[facility] LABCLIA [id number] [place] [address] CASE MANAGEMon 08-06-2020 CASE MANAGEM HNO ID: [id number] Author: Jennifer Grace (Sw) Service: Social Work Author Type: Product Transfer Pumper Type: Care Mgt Progress Note Filed: 08/06/2020 12:45 PM Note Text: CARE MANAGEMENT PROGRESS NOTE SERVICE DATE: 08/06/2020 SERVICE TIME: 12:44 PM LOS: 4 days [facility] in [place] can accept pt. and pt in agreement. Will start precert. SIGNATURE: MARIS Mariee PATIENT NAME: Khanh De La Vega DATE: August 06, 2020 TIME: 12:41 PM PAGER/CONTACT #: [phone] [facility] CASE MANAGEM HNO ID: [id number] Author: Jennifer Grace (Sw) Service: Social Work Author Type: Product Transfer Pumper Type: Care Mgt Progress Note Filed: 08/06/2020 10:26 AM Note Text: CARE MANAGEMENT PROGRESS NOTE SERVICE DATE: 08/06/2020 SERVICE TIME: 10:24 AM LOS: 4 days Met with pt who confirms he would like SNF in [facility]. SNF referrals sent to 7 SNFs. [facility] is considering pt. Will be more difficult finding accepting facility since pt on methadone and with hx drug abuse. SIGNATURE: MARIS Mariee PATIENT NAME: Khanh De La Vega DATE: August 06, 2020 TIME: 10:24 AM PAGER/CONTACT #: [phone] Normal [facility] CBC (hemogram) Bld Autoon Erythrocyte distribution width (RBC) [Ratio] 14.8 % Normal 11.5-15.0 [facility] Comment on above: Order Comment: Speci men Type: BLOOD SPECIMEN Performed By: #### 6 00-7 #### [facility] CLIA [id number] [address] [place] [address] Hematocrit (Bld) [Volume fraction] 29.9 % Low 39.0-51.0 [facility] Comment on above: Order Comment: Speci men Type: BLOOD SPECIMEN Performed By: #### 6 00-7 #### [facility] CLIA [id number] [address] [place] [address] Hemoglobin (Bld) [Mass/Vol] 9.5 g/dL Low 13.0-17.0 [facility] Comment on above: Order Comment: Speci men Type: BLOOD SPECIMEN Performed By: #### 6 -7 #### [facility] CLIA [id number] [address] [place] [address] MCH (RBC) [Entitic mass] 26.5 pg Normal 26.0-34.0 [facility] Comment on above: Order Comment: Speci men Type: BLOOD SPECIMEN Performed By: #### 6 -7 #### [facility] CLIA [id number] [address] [place] [address] MCHC (RBC) [Mass/Vol] 31.8 g/dL Normal 30.5-36.0 [facility] Comment on above: Order Comment: Speci men Type: BLOOD SPECIMEN Performed By: #### 6 -7 #### [facility] CLIA [id number] [address] [place] [address] MCV (RBC) [Entitic vol] 83.3 fL Normal 80.0-100.0 [facility] Comment on above: Order Comment: Speci men Type: BLOOD SPECIMEN Performed By: #### 6 -7 #### [facility] CLIA [id number] [address] [place] [address] Nucleated RBC (Bld) [#/Vol] 10*3/uL Normal <0.01 [facility] Comment on above: Order Comment: Speci men Type: BLOOD SPECIMEN Performed By: #### 6 00-7 #### [facility] CLIA [id number] [address] [place] [address] Platelet mean volume (Bld) [Entitic vol] 9.7 fL Normal 9.0-12.7 [facility] Comment on above: Order Comment: Speci men Type: BLOOD SPECIMEN Performed By: #### 6 00-7 #### [facility] CLIA [id number] [address] [place] [address] Platelets (Bld) [#/Vol] 300 10*3/uL Normal 150-400 [facility] Comment on above: Order Comment: Speci men Type: BLOOD SPECIMEN Performed By: #### 6 -7 #### [facility] CLIA [id number] [address] [place] [address] RBC (Bld) [#/Vol] 3.59 10*6/uL Low 4.20-6.00 [facility] Comment on above: Order Comment: Speci men Type: BLOOD SPECIMEN Performed By: #### 6 -7 #### [facility] CLIA [id number] [address] [place] [address] WBC (Bld) [#/Vol] 12.25 10*3/uL High 3.70-11.00 [facility] Comment on above: Order Comment: Speci men Type: BLOOD SPECIMEN Performed By: #### 6 -7 #### [facility] CLIA [id number] [address] [place] [address] CONSULT PROGon 08-06-2020 CONSULT PROG HNO ID: [id number] Author: Janis Bolaños (Postal Service Mail Processor) Service: Pharmacy Author Type: Pharmacist Type: Consult Progress Note Filed: 08/06/2020 4:13 PM Note Text: PHARMACY VANCOMYCIN DOSING NOTE Patient Name: Khanh De La Vega Admission Date: 08/02/2020 Date of Consult: 08/06/2020 Time of Consult: 3:52 PM Indication: Endocarditis Goal Range: 15-25 mcg/mL RECOMMENDATIONS/PLAN: Pharmacy consulted for vancomycin dosing for Khanh De La Vega, a 35 year old, male who is being treated with vancomycin for endocarditis. 1. Patient is currently ordered vancomycin 1.25g q8h . Today is day 20 of therapy. Patient was previously discharged to a SNF on 07/31/2020 with vancomycin. 2. The most recent vancomycin level was 13.8 mcg/mL drawn at 1258 on 08/05/20. This is a ~8 hour level on the 19 day of therapy. 3. The present dose of vancomycin is the recommended dosage for this patient at this time. Continue therapy as prescribed. 4. The next vancomycin level has been ordered for 08/07/20 @ 1400 (Completed) We will follow patient renal function, vancomycin levels and doses with you during the course of therapy. Additional recommendations will appear in follow up notes. If you have any questions[place] [phone]. Age: [age] year old Allergies: ALLERGIES Allergen Reactions - Penicillins Swelling - Sulfa (Sulfonamide * Swelling Last 3 Encounter Wt Readings: Date: Wt: 08/02/2020 72 kg (158 lb 12.8 oz) 07/17/2020 76.7 kg (169 lb 1.6 oz) 11/23/2019 81.6 kg (180 lb) Last 1 Encounter Ht Readings: Date: Ht: 08/02/2020 177.8 cm (5' 10) Estimated Creatinine Clearance: 140.5 mL/min (based on SCr of 0.74 mg/dL). Temp (24hrs), Av.1 ?C (98.7 ?F), Min:36.7 ?C (98.1 ?F), Max:37.5 ?C (99.5 ?F) - Current Temp: 37 ?C (98.6 ?F) Labs BUN (mg/dL) Date Value 08/06/2020 11 08/03/2020 16 07/31/2020 11 02/10/2018 16 04/23/2017 8 04/21/2017 10 Creatinine (mg/dL) Date Value 08/06/2020 0.74 08/05/2020 0.85 08/03/2020 0.81 02/10/2018 0.92 04/23/2017 0.81 04/21/2017 0.88 WBC Date Value 08/06/2020 12.25 k/uL (H) 08/03/2020 17.03 k/uL (H) 07/31/2020 12.86 k/uL (H) 02/10/2018 10.24 thou/cmm (H) 04/23/2017 9.9 thou/cmm 04/21/2017 9.9 thou/cmm Vancomycin Levels: Vancomycin (ug/mL) Date/Time Value 08/05/2020 1258 13.8 07/31/2020 0823 20.5 (H) Janis Bolaños, Postal Service Mail Processor Normal [facility] Comp Metab 2000 Pnl SerPlon 08-06-2020 Albumin [Mass/Vol] 2.9 g/dL Low 3.9-4.9 [facility] Comment on above: Order Comment: Speci men Type: BLOOD SPECIMEN Performed By: #### 6 00-7 #### [facility] CLIA [id number] [address] [place] [address] ALP [Catalytic activity/Vol] 155 U/L High 38-113 [facility] Comment on above: Order Comment: Speci men Type: BLOOD SPECIMEN Performed By: #### 6 00-7 #### [facility] CLIA [id number] [address] [place] [address] ALT With P-5'-P [Catalytic activity/Vol] 11 U/L Normal 10-54 [facility] Comment on above: Order Comment: Speci men Type: BLOOD SPECIMEN Performed By: #### 6 00-7 #### [facility] CLIA [id number] [address] [place] [address] Anion gap [Moles/Vol] 8 mmol/L Low 9-18 [facility] Comment on above: Order Comment: Speci men Type: BLOOD SPECIMEN Performed By: #### 6 00-7 #### [facility] CLIA [id number] [address] [place] [address] AST With P-5'-P [Catalytic activity/Vol] 20 U/L Normal 14-40 [facility] Comment on above: Order Comment: Speci men Type: BLOOD SPECIMEN Performed By: #### 6 00-7 #### [facility] CLIA [id number] [address] [place] [address] Bilirubin [Mass/Vol] 0.4 mg/dL Normal 0.2-1.3 [facility] Comment on above: Order Comment: Speci men Type: BLOOD SPECIMEN Performed By: #### 6 00-7 #### [facility] CLIA [id number] [address] [place] [address] Calcium [Mass/Vol] 9.1 mg/dL Normal 8.5-10.2 [facility] Comment on above: Order Comment: Speci men Type: BLOOD SPECIMEN Performed By: #### 6 -7 #### [facility] CLIA [id number] [address] [place] [address] Chloride [Moles/Vol] 96 mmol/L Low 97-105 [facility] Comment on above: Order Comment: Speci men Type: BLOOD SPECIMEN Performed By: #### 6 -7 #### [facility] CLIA [id number] [address] [place] [address] CO2 [Moles/Vol] 26 mmol/L Normal 22-30 [facility] Comment on above: Order Comment: Speci men Type: BLOOD SPECIMEN Performed By: #### 6 -7 #### [facility] CLIA [id number] [address] [place] [address] Creatinine [Mass/Vol] 0.74 mg/dL Normal 0.73-1.22 [facility] Comment on above: Order Comment: Speci men Type: BLOOD SPECIMEN Performed By: #### 6 00-7 #### [facility] CLIA [id number] [address] [place] [address] GFR/1.73 sq M.predicted MDRD (S/P/Bld) [Vol rate/Area] mL/min/{1.73_m2} Normal [facility] Comment on above: Order Comment: Speci men Type: BLOOD SPECIMEN Result Comment: >60 eGFR (Estimated GFR) Units of measure: mL/min/1.73 meters squared eGFR is derived from the reexpressed MDRD Study equation using the following parameters: serum creatinine, age, gender and race. The creatinine assay has been calibrated to be traceable to IDMS. An eGFR <60 mL/min/1.73m2 for >3 months is consistent with chronic kidney disease. Refer to KDOQI guidelines for clinical interpretation. In patients with unstable renal function, e.g. those with acute kidney injury, the eGFR may not accurately reflect actual GFR. Performed By: #### 6 00-7 #### [facility] CLIA [id number] [address] [place] [address] Glucose [Mass/Vol] 97 mg/dL Normal 74-99 [facility] Comment on above: Order Comment: Speci men Type: BLOOD SPECIMEN Result Comment: The [place] Diabetes Association (ADA) provides guidance for cutoff values for fasting glucose and random glucose. The ADA defines fasting as no caloric intake for at least 8 hours. Fasting plasma glucose results between 100 to 125 mg/dL indicate increased risk for diabetes (prediabetes). Fasting plasma glucose results greater than or equal to 126 mg/dL meet the criteria for diagnosis of diabetes. In the absence of unequivocal hyperglycemia, results should be confirmed by repeat testing. In a patient with classic symptoms of hyperglycemia or hyperglycemic crisis, random plasma glucose results greater than or equal to 200 mg/dL meet the criteria for diagnosis of diabetes. Reference: Standards of Medical Care in Diabetes 2016, [employer] Diabetes Association. Diabetes Care. 2016.39(Suppl 1). Performed By: #### 6 -7 #### [facility] CLIA [id number] [address] [place] [address] Potassium [Moles/Vol] 4.0 mmol/L Normal 3.7-5.1 [facility] Comment on above: Order Comment: Speci men Type: BLOOD SPECIMEN Performed By: #### 6 -7 #### [facility] CLIA [id number] [address] [place] [address] Protein [Mass/Vol] 8.3 g/dL High 6.3-8.0 [facility] Comment on above: Order Comment: Speci men Type: BLOOD SPECIMEN Performed By: #### 6 -7 #### [facility] CLIA [id number] [address] [place] [address] Sodium [Moles/Vol] 130 mmol/L Low 136-144 [facility] Comment on above: Order Comment: Speci men Type: BLOOD SPECIMEN Performed By: #### 6 00-7 #### [facility] CLIA [id number] [address] [place] [address] Urea nitrogen [Mass/Vol] 11 mg/dL Normal 9-24 [facility] Comment on above: Order Comment: Speci men Type: BLOOD SPECIMEN Performed By: #### 6 00-7 #### [facility] CLIA [id number] [address] [place] [address] PROGRESSon 08-06-2020 PROGRESS HNO ID: [id number] Author: Selina Nicholas Service: Hospital Medicine Author Type: Resident Type: Progress Notes Filed: 08/06/2020 11:25 AM Note Text: Attestation signed by Elijah Hill at 08/06/2020 5:53 PM I saw and evaluated the patient. Discussed with the resident and agree with resident's findings and plan as documented in the resident's note. HOUSE MEDICINE SERVICE PROGRESS NOTE SERVICE DATE: August 06, 2020 NIGHT AND WEEKEND COVERAGE: From 6 AM to 5 PM: You may reach the House Medicine sales and marketing intern currently assigned to this patient by finding their pager number on the treatment team (they will be assigned as the sales and marketing intern or resident). It is the last four digits in the phone number beginning with ([phone]). We encourage the use of [employer] Secure Chat. SUBJECTIVE HPI: 35 year old male with PMHx IV drug use, schizophrenia, depression and anxiety, presents to [facility] from halfway facility on 08/02/2020. He was recently admitted to [facility] from 07/17/20 to 07/31/2020 for suspicion of infective endocarditis, however transthoracic echocardiogram did not show vegetations. Hospital course was complicated with COVID infection AND hepatic lesions found on MRI. He was transferred to halfway facility with a PICC line and to continue Vancomycin + Ciprofloxacin [stop date on 09/05/20]. He was planned to have transthoracic echocardiogram after 4 weeks and to follow up with infectious disease [Dr. Bowens] and gastroenterology [Dr. Hernández] for his hepatic lesions. ? While at the halfway facility, he was having a sponge bath, and his bandage around his picc line was removed resulting in his picc line to fall out on 08/01. The day afterwards, his right arm was drenched in blood and he felt unsafe since they did not check his vitals or care for his PICC line, so he wished to come back to Emergency Department to be sent to a different halfway facility. Patient will be admitted to House Medicine for replacement of PICC line and safe discharge to halfway facility. Interval Events: Pt is hemodynamically stable, breathing on room air with SPO2 of 97%. On regular diet. In labs,WBC 12.25 ( 17.03 yesterday), Hb 9.5 (10.4 yesterday), hyponatremia 130 (130 yesterday), Albumin 2.9,Raised ALP of 155. Pt refusing to return to [facility]. Referrals sent to multiple SNF in the [facility]. Awaiting acceptance from [facility]. Pt will need auth once a facility accepts and medically stable. OBJECTIVE Medications: IV Infusions: Scheduled: - vancomycin, 1.25 g, q 8 HR - methadone, 5 mg, TID 9a/3p/9p (BMT) - ciprofloxacin HCl, 750 mg, BID - enoxaparin, 40 mg, DAILY - sodium chloride 0.9 % (flush), 10 mL, q 12 H - vancomycin dosing and monitoring per pharmacy, , As Directed PRN: - sodium chloride 0.9 % (flush), 20 mL, PRN Vital Signs: BP 94/59 Pulse 85 Temp (Src) 99.5 (Oral) Resp 16 Ht 5' 10 (1.78m) Wt 158 lb 12.8 oz (72.0kg) SpO2 95% BMI 22.79 kg/(m2). O2 Therapy: Room Air Patient Vitals for the past 24 hrs: Pulse BP 08/03/20 0500 84 105/62 08/02/20 2037 68 125/79 08/02/20 1908 88 111/79 08/02/20 1800 81 102/68 08/02/20 1700 75 114/74 08/02/20 1600 ? 107/70 08/02/20 1503 88 121/87 Physical Exam Performed: GENERAL: alert, oriented to person, place, time NECK: supple without lymphadenopathy; no JVD; no thyromegaly CHEST: clear bilaterally to auscultation; normal chest movement; no rales or rhonchi HEART: regular rate and rhythm, normal S1 and S2, no murmurs, clicks, rubs, or gallops ABDOMEN: soft; nondistended; bowel sounds present; no hepatomegaly; no splenomegaly; no tenderness EXTREMITIES: no evidence of clubbing; no cyanosis; no deformity; no joint effusion; no edema NEURO: cranial nerves intact; no focal deficits; no confusion; no tremor; sensorium normal SKIN: no rash; no skin breakdown; no decubitus lesions HEME: no bruising; no adenopathy PSYCH: no evidence of depression; no anxiety; no agitation; no apparent hallucinations. Lines, Drains, and Airways Line Peripheral 08/02/20 190 Assessment Short Left Antecubital 20 Gauge 3 days Central Line Single Lumen 08/03/20 1301 Peripherally Inserted (PICC) Right Arm 4.0 Bangladeshi 2 days Reviewed lines and needs to be continued: REASONS: Intravenous antibiotics Labs: No recent labs, since 08/03 CBC: Recent Labs 08/06/2081808/03/2052607/31/20 0446 WBC 12.25* 17.03* 12.86* HB 9.5* 10.4* 8.8* HCT 29.9* 31.5* 27.9* PLT 300 279 92* MCV 83.3 81.8 83.3 RDWCV 14.8 15.6* 15.0 COAG: Recent Labs 08/03/20526 APTT 33.0* INR 1.1 BMP: Recent Labs 08/06/2081808/05/20 1258 08/03/2052607/31/20 0444 GLUC 97 -- 105* 109* NA 130* -- 130* 133* K 4.0 -- 4.5 4.7 CHLOR 96* -- 96* 96* CO2 26 -- 26 28 ANION 8* -- 8* 9 BUN 11 -- 16 11 CREAT 0.74 0.85 0.81 0.79 CHEM: Recent Labs 08/06/2081808/03/2052607/31/20443 TPROT 8.3* -- -- CA 9.1 8.8 8.5 HEPATIC: Recent Labs 08/06/20818 ALKPHOS 155* ALT 11 AST 20 TBILI 0.4 URINALYSIS:No results for input(s): PH, SPGR, UGLUC, UBILI, UKET, UHB, UPROT, UROBIL, UWBC, SSA in the last 168 hours. Invalid input(s): NITR CARDIAC: No results for input(s): CKTEST, CKMB, CKMBP in the last 168 hours.TROPONIN@:8,No results found for: BNP:8)@ No intake or output data in the 24 hours ending 08/06/20933 Serum creatinine: 0.81 mg/dL 08/03/20526 Estimated creatinine clearance: 115.6 mL/min Standardized Care Interventions: Labs: Routine blood work not indicated for tomorrow ? ECHO 07/27/2020: - The left ventricle is normal in size. There is no left ventricular hypertrophy. Left ventricular systolic function is normal. EF = 60 ? 5% (visual est.) Left ventricular diastolic function was not evaluated. - The right ventricle is normal in size. Right ventricular systolic function is normal. - Mildly thickened tricuspid valve leaflets. No obvious evidence of endocarditis noted. ? EKG 07/17/2020: QTc 437 NORMAL SINUS RHYTHM NORMAL ECG MRI SPINE 07/30/2020: 1. ?Limited examination due to patient motion. 2. ?Degenerative-type bone marrow signal changes at the L4-L5 and L5-S1 levels. 3. ?Small hemangioma versus degenerative-type bone marrow signal changes involving the inferior C6 endplate. 4. ?T3 probable small benign hemangioma. 5. ?No definitive evidence of spinal discitis or osteomyelitis. ?No convincing evidence of osseous metastatic disease involving the spine. 6. ?T7-T8 small right paracentral disc protrusion with minimal anterior right cord deformity. ?No central canal stenosis. 7. ?Mild thoracic and lumbar degenerative disc bulging without central canal stenosis as detailed above. Cervical Anatomic Variant: ?None. ?Assume 7 cervical vertebrae with counting from the craniocervical junction. Anatomic Thoracic/Lumbar Variant: None. ?L4-5 is considered the level of the iliac crest and assume there are 5 lumbar-type vertebrae. MRI LIVER 07/17/2020: Multiple too numerous to count targetoid type lesions throughout the liver. Given patient's history, multiple hepatic abscesses are consideration. Metastatic disease is is not excluded. There is splenomegaly but no obvious focal lesions within the spleen. Enlarged lymph nodes in the periportal and peripancreatic region. Contracted gallbladder with gallstones CT CHEST/ABDOMEN 07/25/2020: Chest: 1. ?No consolidation or pleural effusion. ?No suspicious nodules. 2. ?No lymphadenopathy in the chest. Abdomen / Pelvis: 1. ?No acute intra-abdominal or pelvic findings. 2. ?Hepatic steatosis. 3. ?Indeterminate a 0.7 cm enhancing lesion in the anterior right hepatic dome for which nonemergent dedicated MRI might be obtained for further evaluation. 4. ?A few mildly prominent lymph nodes in the retroperitoneum, nonspecific in grossly unchanged since 10/2019. Assessment/Plan Problem List Cannabis dependence (HCC) Nicotine use disorder, F17.2 Infective endocarditis ? Concern for Infective endocarditis - Blood cultures negative. Negative fungal cultures. - Transthoracic echocardiogram [07/27] shows mildly thickened tricuspid valve leaflets, however no signs of endocarditis - Plan for transesophageal echocardiogram in [address] Bowens - ID recommended continuing Vanc/Cipro until 09/05/2020. At this time, no need for consult since antibiotic regimen is in place. Will continue to monitor for worsening symptoms, fevers. -PICC line in place. 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 ? Intrahepatic Lesions, Likely Abscesses vs Metastatic Disease - MRI Liver 07/27/2020 shows Multiple too numerous to count targetoid type lesions throughout the liver. Given patient's history, multiple hepatic abscesses are consideration. Metastatic disease is is not excluded. ? - Likely related to his history of IVDU, and hepatitis C positivity. - Potentially could obtain lesion biopsy?at a later date?as some are superficial anteriorly. - GI was consulted on previous admission and instructed to follow-up as outpatient. ? Nicotine dependence. - Consider nicotine patch per patient request ? H/o opioid use - Pain management consulted they recommended methadone 5 mg p.o. 3 times daily with plans to continue to taper. Thrombocytopenia(Resol stefany) Anti PF 4 Ab negative. Pt refusing to return to [facility]. Referrals sent to multiple SNF in the area. Await acceptance. Pt will need auth once a facility accepts and medically stable. Medication and Non-Pharmacologic VTE Prophylaxis/Anticoagul ants Anticoagulant AND Antiplatelet Medications (From admission, onward) Start Dose Route Frequency Ordered Stop 08/02/20 1900 enoxaparin 40 mg injection (LOVENOX) (Medical Risk Categories) 40 mg SUBCUTANEOUS DAILY 08/02/20 1850 -- 08/02/20 190 pneumatic compression stockings (fl,oh) VTE Prophylaxis: VTE prophylaxis appropriate GI Prophylaxis: Not indicated Telemetry: Not indicated Disposition: Extended care / halfway facility Code Status: Full Code Plan of care discussed with: Provider SIGNATURE: Selina Nicholas MD PATIENT NAME: Khanh De La Vega DATE: August 06, 2020 TIME: 9:34 AM Page [phone] [facility] CONSULT PROGon 08-05-2020 CONSULT PROG HNO ID: [id number] Author: Fabienne Marcano (Pharmacist) Service: Pharmacy Author Type: Pharmacist Type: Consult Progress Note Filed: 08/05/2020 1:56 PM Note Text: PHARMACY VANCOMYCIN DOSING NOTE Patient Name: Khanh De La Vega Admission Date: 08/02/2020 Date of Consult: 08/05/2020 Time of Consult: 8:39 AM Indication: Endocarditis Goal Range: 15-25 mcg/mL RECOMMENDATIONS/PLAN: Pharmacy consulted for vancomycin dosing for Khanh De La Vega, a 35 year old, male who is being treated with vancomycin for infective endocarditis. 1. Patient is currently ordered Vancomycin 1 g IV q8h. Today is day 19 of therapy. Patient was previously discharged to a SNF on 07/31/20 with vancomycin at this dose, therefore continuing inpatient. 2. The most recent vancomycin level was 13.8 mcg/mL drawn at 1258 on 08/05/20. This is a ~8 hour level on the 19th day of therapy. 3. Will increase vancomycin to 1.25 g with a dosing interval of q8h 4. The next vancomycin level will be ordered for 08/07/20 @ 1400 unless clinically indicated sooner. (Pharmacy will order) Given most recent level just below therapeutic range, will check level on day 3 of new dosing regimen to ensure pt is not trending towards supratherapeutic. We will follow patient renal function, vancomycin levels and doses with you during the course of therapy. Additional recommendations will appear in follow up notes. If you have any questions, please contact Fabienne Marcano at [phone] [place] [phone] Age: [age] year old Allergies: ALLERGIES Allergen Reactions - Penicillins Swelling - Sulfa (Sulfonamide * Swelling Last 3 Encounter Wt Readings: Date: Wt: 08/02/2020 71.6 kg (157 lb 12.8 oz) 07/17/2020 76.7 kg (169 lb 1.6 oz) 11/23/2019 81.6 kg (180 lb) Last 1 Encounter Ht Readings: Date: Ht: 08/02/2020 177.8 cm (5' 10) Estimated Creatinine Clearance: 121.7 mL/min (based on SCr of 0.85 mg/dL). Temp (24hrs), Av.2 ?C (99 ?F), Min:36.6 ?C (97.9 ?F), Max:37.7 ?C (99.9 ?F) - Current Temp: 37.7 ?C (99.9 ?F) Labs BUN (mg/dL) Date Value 08/03/2020 16 07/31/2020 11 07/30/2020 17 02/10/2018 16 04/23/2017 8 04/21/2017 10 Creatinine (mg/dL) Date Value 08/05/2020 0.85 08/03/2020 0.81 07/31/2020 0.79 02/10/2018 0.92 04/23/2017 0.81 04/21/2017 0.88 WBC Date Value 08/03/2020 17.03 k/uL (H) 07/31/2020 12.86 k/uL (H) 07/30/2020 15.43 k/uL (H) 02/10/2018 10.24 thou/cmm (H) 04/23/2017 9.9 thou/cmm 04/21/2017 9.9 thou/cmm Vancomycin Levels: Vancomycin (ug/mL) Date/Time Value 08/05/2020 1258 13.8 07/31/2020 0823 20.5 (H) Vladislav De Jesus Normal [facility] CREATININE BLDon 08-05-2020 Creatinine [Mass/Vol] 0.85 mg/dL Normal 0.73-1.22 [facility] Comment on above: Order Comment: Speci men Type: BLOOD SPECIMEN Performed By: #### 9 4500-6 #### [facility] CLIA [id number] [address] [place] [address] GFR/1.73 sq M.predicted MDRD (S/P/Bld) [Vol rate/Area] mL/min/{1.73_m2} Normal [facility] Comment on above: Order Comment: Speci men Type: BLOOD SPECIMEN Result Comment: >60 eGFR (Estimated GFR) Units of measure: mL/min/1.73 meters squared eGFR is derived from the reexpressed MDRD Study equation using the following parameters: serum creatinine, age, gender and race. The creatinine assay has been calibrated to be traceable to IDMS. An eGFR <60 mL/min/1.73m2 for >3 months is consistent with chronic kidney disease. Refer to KDOQI guidelines for clinical interpretation. In patients with unstable renal function, e.g. those with acute kidney injury, the eGFR may not accurately reflect actual GFR. Performed By: #### 9 4500-6 #### [facility] CLIA [id number] [address] [place] [address] PROGRESSon 08-05-2020 PROGRESS HNO ID: [id number] Author: Momo Quevedo) Close Service: Hospital Medicine Author Type: Resident Type: Progress Notes Filed: 08/05/2020 12:47 PM Note Text: Attestation signed by Dimas Alicia at 08/05/2020 4:29 PM This is a 35-year-old male with past medical history of IV drug use, cytopenia, depression and anxiety who was recently admitted for suspicious infective endocarditis, however echocardiogram did not show any vegetations. He was discharged to halfway facility on IV vancomycin and ciprofloxacin with end date on antibiotics. He was sent back to hospital as his PICC line got displaced. A new PICC line was placed. Patient stated he does not want to go back to the same facility. Pending placement. Attending Note I personally saw and examined the patient on August 05, 2020. I reviewed the resident's note. I agree with the resident's assessment and plan unless otherwise noted. Signature: Dimas Alicia MD Date: 08/05/2020 Time: 4:28 PM Pager: [phone] HOUSE [facility]IC[facility] SERVICE PROGRESS NOTE SERVICE DATE: August 05, 2020 NIGHT AND WEEKEND COVERAGE: From 6 AM to 5 PM: You may reach the House Medicine sales and marketing intern currently assigned to this patient by finding their pager number on the treatment team (they will be assigned as the sales and marketing intern or resident). It is the last four digits in the phone number beginning with ([phone]). We encourage the use of [employer] Secure Chat. SUBJECTIVE HPI: 35 year old male with PMHx IV drug use, schizophrenia, depression and anxiety, presents to [facility] from halfway facility on 08/02/2020. He was recently admitted to [facility] from 07/17/20 to 07/31/2020 for suspicion of infective endocarditis, however transthoracic echocardiogram did not show vegetations. Hospital course was complicated with COVID infection AND hepatic lesions found on MRI. He was transferred to halfway facility with a PICC line and to continue Vancomycin + Ciprofloxacin [stop date on 09/05/20]. He was planned to have transthoracic echocardiogram after 4 weeks and to follow up with infectious disease [Dr. Bowens] and gastroenterology [Dr. Hernández] for his hepatic lesions. ? While at the halfway facility, he was having a sponge bath, and his bandage around his picc line was removed resulting in his picc line to fall out on 08/01. The day afterwards, his right arm was drenched in blood and he felt unsafe since they did not check his vitals or care for his PICC line, so he wished to come back to Emergency Department to be sent to a different halfway facility. Patient will be admitted to House Medicine for replacement of PICC line and safe discharge to halfway facility. Interval Events: NAEON. This morning, pt was concerned about his blood pressure. States he has never had low blood pressure in the past, and that this morning he had a reading in the high 90s systolic. Wondering if the hypotension is related to his PICC. I reassured the patient that it is likely not the cause, but that we would continue to monitor his blood pressure. He reports some lightheadedness upon standing, but is otherwise stable. Has no other concerns or new symptoms this morning. Tolerating regular diet well. Pt refusing to return to [facility]. Referrals sent to multiple SNF in the area. Await acceptance. Pt will need auth once a facility accepts and medically stable. OBJECTIVE Medications: IV Infusions: Scheduled: - methadone, 5 mg, TID 9a/3p/9p (BMT) - ciprofloxacin HCl, 750 mg, BID - vancomycin, 1 g, q 8 H - enoxaparin, 40 mg, DAILY - sodium chloride 0.9 % (flush), 10 mL, q 12 H - vancomycin dosing and monitoring per pharmacy, , As Directed PRN: - sodium chloride 0.9 % (flush), 20 mL, PRN Vital Signs: BP 102/60 Pulse 81 Temp (Src) 98.2 (Oral) Resp 18 Ht 5' 10 (1.78m) Wt 157 lb 12.8 oz (71.6kg) SpO2 95% BMI 22.64 kg/(m2). O2 Therapy: Room Air Patient Vitals for the past 24 hrs: Pulse BP 08/03/20 0500 84 105/62 08/02/20 2037 68 125/79 08/02/20 1908 88 111/79 08/02/20 1800 81 102/68 08/02/20 1700 75 114/74 08/02/20 1600 ? 107/70 08/02/20 1503 88 121/87 Physical Exam Performed: GENERAL: alert, oriented to person, place, time NECK: supple without lymphadenopathy; no JVD; no thyromegaly CHEST: clear bilaterally to auscultation; normal chest movement; no rales or rhonchi HEART: regular rate and rhythm, normal S1 and S2, no murmurs, clicks, rubs, or gallops ABDOMEN: soft; nondistended; bowel sounds present; no hepatomegaly; no splenomegaly; no tenderness EXTREMITIES: no evidence of clubbing; no cyanosis; no deformity; no joint effusion; no edema NEURO: cranial nerves intact; no focal deficits; no confusion; no tremor; sensorium normal SKIN: no rash; no skin breakdown; no decubitus lesions HEME: no bruising; no adenopathy PSYCH: no evidence of depression; no anxiety; no agitation; no apparent hallucinations. Lines, Drains, and Airways Line Peripheral 08/02/20 1900 Assessment Short Left Antecubital 20 Gauge 2 days Central Line Single Lumen 08/03/20 1301 Peripherally Inserted (PICC) Right Arm 4.0 Bangladeshi 1 day Reviewed lines and needs to be continued: REASONS: Intravenous antibiotics Labs: No recent labs, since 08/03 CBC: Recent Labs 08/03/2052607/31/2044507/30/20641 WBC 17.03* 12.86* 15.43* HB 10.4* 8.8* 8.5* HCT 31.5* 27.9* 27.1* PLT 279 92* 139* MCV 81.8 83.3 83.6 RDWCV 15.6* 15.0 14.9 COAG: Recent Labs 08/03/20526 APTT 33.0* INR 1.1 BMP: Recent Labs 08/03/2052607/31/2044307/30/20641 GLUC 105* 109* 113* NA 130* 133* 130* K 4.5 4.7 4.2 CHLOR 96* 96* 96* CO2 26 28 26 ANION 8* 9 8* BUN 16 11 17 CREAT 0.81 0.79 0.87 CHEM: Recent Labs 08/03/2052607/31/2044307/30/2042 CA 8.8 8.5 8.4* HEPATIC: No results for input(s): ALKPHOS, ALT, AST, TBILI, LIPASE in the last 168 hours. URINALYSIS:No results for input(s): PH, SPGR, UGLUC, UBILI, UKET, UHB, UPROT, UROBIL, UWBC, SSA in the last 168 hours. Invalid input(s): NITR CARDIAC: No results for input(s): CKTEST, CKMB, CKMBP in the last 168 hours.TROPONIN@:8,No results found for: BNP:8)@ Intake/Output Summary (Last 24 hours) at 08/05/2020 1247 Last data filed at 08/05/2020 0600 Gross per 24 hour Intake 920 ml Output ? Net 920 ml Serum creatinine: 0.81 mg/dL 08/03/20 0527 Estimated creatinine clearance: 115.6 mL/min Standardized Care Interventions: Labs: Routine blood work not indicated for tomorrow Assessment/Plan Problem List Cannabis dependence (HCC) Nicotine use disorder, F17.2 Infective endocarditis ? Concern for Infective endocarditis - Blood cultures negative. Negative fungal cultures(till date, ordered on 07/20). - Transthoracic echocardiogram [07/27] shows mildly thickened tricuspid valve leaflets, however no signs of endocarditis - Plan for transesophageal echocardiogram in [address] Bowens - ID recommended continuing Vanc/Cipro until 09/05/2020. At this time, no need for consult since antibiotic regimen is in place. Will continue to monitor for worsening symptoms, fevers. -PICC line placed yesterday. 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 ? Intrahepatic Lesions, Likely Abscesses vs Metastatic Disease - MRI Liver 07/27/2020 shows Multiple too numerous to count targetoid type lesions throughout the liver. Given patient's history, multiple hepatic abscesses are consideration. Metastatic disease is is not excluded. ? - Likely related to his history of IVDU, and hepatitis C positivity. - Potentially could obtain lesion biopsy?at a later date?as some are superficial anteriorly. - GI was consulted on previous admission and instructed to follow-up as outpatient. ? Nicotine dependence. - Consider nicotine patch per patient request ? H/o opioid use - Pain management consulted they recommended methadone 5 mg p.o. 3 times daily with plans to continue to taper. Thrombocytopenia(Resol stefany) Anti PF 4 Ab negative. Pt refusing to return to [facility]. Referrals sent to multiple SNF in the area. Await acceptance. Pt will need auth once a facility accepts and medically stable. Medication and Non-Pharmacologic VTE Prophylaxis/Anticoagul ants Anticoagulant AND Antiplatelet Medications (From admission, onward) Start Dose Route Frequency Ordered Stop 08/02/20 1900 enoxaparin 40 mg injection (LOVENOX) (Medical Risk Categories) 40 mg SUBCUTANEOUS DAILY 08/02/20 1850 -- 08/02/20 190 pneumatic compression stockings (ct,oh) VTE Prophylaxis: VTE prophylaxis appropriate GI Prophylaxis: Not indicated Telemetry: Not indicated Disposition: Extended care / halfway facility Code Status: Full Code Plan of care discussed with: Provider SIGNATURE: Momo Mejia MD PATIENT NAME: Khanh De La Vega DATE: August 05, 2020 TIME: 12:47 PM Page [phone] [facility] VANCOMYCINon 08-05-2020 Vancomycin [Mass/Vol] 13.8 ug/mL Normal 10.0-20.0 [facility] Comment on above: Order Comment: Speci men Type: BLOOD SPECIMEN Result Comment: Refe rence ranges and high/low indicator flags are provided as general guidelines only. The treating physician must determine appropriate target levels/dosing based on the specific clinical situation. Performed By: #### V ANCRA ####[facility] [id number] [place] [address] CASE MANAGEMon 08-04-2020 CASE MANAGEM HNO ID: [id number] Author: Juanita IrahetaRn) INDY Dee Service: Care Management Author Type: Registered Nurse Type: Care Mgt Progress Note Filed: 08/04/2020 10:14 AM Note Text: CARE MANAGEMENT PROGRESS NOTE SERVICE DATE: 08/04/2020 SERVICE TIME: 10:12 AM LOS: 2 days Chart reviewed. Per previous CM note. Pt from [place], but refusing to return. Pt has history of IVDU and will need IV abx. Pt agreeable to other SNF, but wants to remain in the area. Referrals sent to multiple SNF in the area. Await acceptance. Pt will need auth once a facility accepts and medically stable. Will follow. SIGNATURE: Juanita Dee RN PATIENT NAME: Khanh De La Vega DATE: August 04, 2020 TIME: 10:12 AM PAGER/CONTACT #: [phone] [facility] CONSULT PROGon 08-04-2020 CONSULT PROG HNO ID: [id number] Author: Fabienne Marcano (Pharmacist) Service: Pharmacy Author Type: Pharmacist Type: Consult Progress Note Filed: 08/04/2020 7:36 AM Note Text: PHARMACY VANCOMYCIN DOSING NOTE Patient Name: Khanh De La Vega Admission Date: 08/02/2020 Date of Consult: 08/04/2020 Time of Consult: 7:25 AM Indication: Endocarditis Goal Range: 15-25 mcg/mL RECOMMENDATIONS/PLAN: Pharmacy consulted for vancomycin dosing for Khanh De La Vega, a 35 year old, male who is being treated with vancomycin for infective endocarditis. 1. Patient is currently ordered Vancomycin 1 g IV q8h. Today is day 18 of overall vancomycin therapy. Patient was previously discharged to a SNF on 07/31/20 with vancomycin at this dose, therefore continuing inpatient. 2. The most recent vancomycin level was 20.5 mcg/mL drawn at 0823 on 07/31/20. This is a 7 hour level on the 14th day of therapy. This level was drawn on day of discharge and PharmD reduced the vancomycin to 1g Q8H from 1.25g IV Q8H to target a trough closer to 15mcg/mL. 3. The present dose of vancomycin is the recommended dosage for this patient at this time. Continue therapy as prescribed. 4. The next vancomycin level has been ordered for 08/05/20 @ 1300 (5 days after most recent level) (Completed) We will follow patient renal function, vancomycin levels and doses with you during the course of therapy. Additional recommendations will appear in follow up notes. If you have any questions, please contact Fabienne Marcano at [phone] [place] [phone]. Age: [age] year old Allergies: ALLERGIES Allergen Reactions - Penicillins Swelling - Sulfa (Sulfonamide * Swelling Last 3 Encounter Wt Readings: Date: Wt: 08/02/2020 71.6 kg (157 lb 12.8 oz) 07/17/2020 76.7 kg (169 lb 1.6 oz) 11/23/2019 81.6 kg (180 lb) Last 1 Encounter Ht Readings: Date: Ht: 08/02/2020 177.8 cm (5' 10) Estimated Creatinine Clearance: 127.7 mL/min (based on SCr of 0.81 mg/dL). Temp (24hrs), Av.1 ?C (98.7 ?F), Min:36.8 ?C (98.2 ?F), Max:37.4 ?C (99.3 ?F) - Current Temp: 37.4 ?C (99.3 ?F) Labs BUN (mg/dL) Date Value 08/03/2020 16 07/31/2020 11 07/30/2020 17 02/10/2018 16 04/23/2017 8 04/21/2017 10 Creatinine (mg/dL) Date Value 08/03/2020 0.81 07/31/2020 0.79 07/30/2020 0.87 02/10/2018 0.92 04/23/2017 0.81 04/21/2017 0.88 WBC Date Value 08/03/2020 17.03 k/uL (H) 07/31/2020 12.86 k/uL (H) 07/30/2020 15.43 k/uL (H) 02/10/2018 10.24 thou/cmm (H) 04/23/2017 9.9 thou/cmm 04/21/2017 9.9 thou/cmm Vancomycin Levels: Vancomycin (ug/mL) Date/Time Value 07/31/2020 0823 20.5 (H) 07/30/2020 0642 25.7 (H) Fabienne Marcano, Pharmacist [facility] PROGRESSon 08-04-2020 PROGRESS HNO ID: [id number] Author: Selina Nicholas Service: Hospital Medicine Author Type: Resident Type: Progress Notes Filed: 08/04/2020 12:59 PM Note Text: Attestation signed by Dimas Alicia at 08/04/2020 3:09 PM Attending Note I personally saw and examined the patient on August 04, 2020. I reviewed the resident's note. I agree with the resident's assessment and plan unless otherwise noted. Signature: Dimas Alicia MD Date: 08/04/2020 Time: 3:09 PM Pager: [phone] HOUSE MEDICINE SERVICE PROGRESS NOTE SERVICE DATE: August 04, 2020 NIGHT AND WEEKEND COVERAGE: From 6 AM to 5 PM: You may reach the House Medicine sales and marketing intern currently assigned to this patient by finding their pager number on the treatment team (they will be assigned as the sales and marketing intern or resident). It is the last four digits in the phone number beginning with ([phone]). We encourage the use of [employer] Secure Chat. SUBJECTIVE HPI: 35 year old male with PMHx IV drug use, schizophrenia, depression and anxiety, presents to [facility] from halfway [facility] on 08/02/2020. He was recently admitted to [facility] from 07/17/20 to 07/31/2020 for suspicion of infective endocarditis, however transthoracic echocardiogram did not show vegetations. Hospital course was complicated with COVID infection AND hepatic lesions found on MRI. He was transferred to halfway facility with a PICC line and to continue Vancomycin + Ciprofloxacin [stop date on 09/05/20]. He was planned to have transthoracic echocardiogram after 4 weeks and to follow up with infectious disease [Dr. Bowens] and gastroenterology [Dr. Hernández] for his hepatic lesions. ? While at the halfway facility, he was having a sponge bath, and his bandage around his picc line was removed resulting in his picc line to fall out on 08/01. The day afterwards, his right arm was drenched in blood and he felt unsafe since they did not check his vitals or care for his PICC line, so he wished to come back to Emergency Department to be sent to a different halfway facility. Patient will be admitted to House Medicine for replacement of PICC line and safe discharge to halfway facility. Interval Events: Today, his blood pressure is soft 98/52 rest of the vitals are fine,breathing on room air with SPO2 of 97%. On regular diet. On acute events overnight, no active complaints. Pt refusing to return to [facility]. Referrals sent to multiple SNF in the area. Await acceptance. Pt will need auth once a facility accepts and medically stable. OBJECTIVE Medications: IV Infusions: Scheduled: - methadone, 5 mg, TID 9a/3p/9p (BMT) - ciprofloxacin HCl, 750 mg, BID - vancomycin, 1 g, q 8 H - enoxaparin, 40 mg, DAILY - sodium chloride 0.9 % (flush), 10 mL, q 12 H - vancomycin dosing and monitoring per pharmacy, , As Directed PRN: - sodium chloride 0.9 % (flush), 20 mL, PRN Vital Signs: BP 102/58 Pulse 92 Temp (Src) 99.3 (Oral) Resp 16 Ht 5' 10 (1.78m) Wt 157 lb 12.8 oz (71.6kg) SpO2 93% BMI 22.64 kg/(m2). O2 Therapy: Room Air Patient Vitals for the past 24 hrs: Pulse BP 08/03/20 0500 84 105/62 08/02/20 2037 68 125/79 08/02/20 1908 88 111/79 08/02/20 1800 81 102/68 08/02/20 1700 75 114/74 08/02/20 1600 ? 107/70 08/02/20 1503 88 121/87 Physical Exam Performed: GENERAL: alert, oriented to person, place, time NECK: supple without lymphadenopathy; no JVD; no thyromegaly CHEST: clear bilaterally to auscultation; normal chest movement; no rales or rhonchi HEART: regular rate and rhythm, normal S1 and S2, no murmurs, clicks, rubs, or gallops ABDOMEN: soft; nondistended; bowel sounds present; no hepatomegaly; no splenomegaly; no tenderness EXTREMITIES: no evidence of clubbing; no cyanosis; no deformity; no joint effusion; no edema NEURO: cranial nerves intact; no focal deficits; no confusion; no tremor; sensorium normal SKIN: no rash; no skin breakdown; no decubitus lesions HEME: no bruising; no adenopathy PSYCH: no evidence of depression; no anxiety; no agitation; no apparent hallucinations. Lines, Drains, and Airways Line Peripheral 08/02/20 1900 Assessment Short Left Antecubital 20 Gauge 1 day Central Line Single Lumen 08/03/20 1301 Peripherally Inserted (PICC) Right Arm 4.0 Bangladeshi less than 1 day Reviewed lines and needs to be continued: REASONS: Intravenous antibiotics Labs: CBC: Recent Labs 08/03/2052607/31/2044507/30/2064107/29/20124 WBC 17.03* 12.86* 15.43* 16.01* HB 10.4* 8.8* 8.5* 9.2* HCT 31.5* 27.9* 27.1* 28.5* PLT 279 92* 139* 210 MCV 81.8 83.3 83.6 81.7 RDWCV 15.6* 15.0 14.9 14.7 COAG: Recent Labs 08/03/2052607/29/20124 APTT 33.0* -- INR 1.1 1.2 BMP: Recent Labs 08/03/2052607/31/2044307/30/2064107/29/20124 GLUC 105* 109* 113* 99 NA 130* 133* 130* 129* K 4.5 4.7 4.2 4.8 CHLOR 96* 96* 96* 96* CO2 26 28 26 24 ANION 8* 9 8* 9 BUN 16 11 17 14 CREAT 0.81 0.79 0.87 0.91 CHEM: Recent Labs 08/03/2052607/31/2044307/30/2064107/29/20124 TPROT -- -- -- 8.4* CA 8.8 8.5 8.4* 8.6 HEPATIC: Recent Labs 07/29/20124 ALKPHOS 198* ALT 16 AST 38 TBILI 0.3 URINALYSIS:No results for input(s): PH, SPGR, UGLUC, UBILI, UKET, UHB, UPROT, UROBIL, UWBC, SSA in the last 168 hours. Invalid input(s): NITR CARDIAC: No results for input(s): CKTEST, CKMB, CKMBP in the last 168 hours.TROPONIN@:8,No results found for: BNP:8)@ No intake or output data in the 24 hours ending 08/04/20727 Serum creatinine: 0.81 mg/dL 08/03/20526 Estimated creatinine clearance: 115.6 mL/min Standardized Care Interventions: Labs: Routine blood work not indicated for tomorrow Assessment/Plan Problem List Cannabis dependence (HCC) Nicotine use disorder, F17.2 Infective endocarditis ? ?Infective endocarditis - Blood cultures negative. Negative fungal cultures(till date, ordered on 07/20). - Transthoracic echocardiogram [07/27] shows mildly thickened tricuspid valve leaflets, however no signs of endocarditis - Plan for transesophageal echocardiogram in [address] Bowens - ID recommended continuing Vanc/Cipro until 09/05/2020. At this time, no need for consult since antibiotic regimen is in place. Will continue to monitor for worsening symptoms, fevers. -PICC line placed yesterday. 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 ? Intrahepatic Lesions, Likely Abscesses vs Metastatic Disease - MRI Liver 07/27/2020 shows Multiple too numerous to count targetoid type lesions throughout the liver. Given patient's history, multiple hepatic abscesses are consideration. Metastatic disease is is not excluded. ? - Likely related to his history of IVDU, and hepatitis C positivity. - Potentially could obtain lesion biopsy?at a later date?as some are superficial anteriorly. - GI was consulted on previous admission and instructed to follow-up as outpatient. ? Nicotine dependence. - Consider nicotine patch per patient request ? H/o opioid use - Pain management consulted they recommended methadone 5 mg p.o. 3 times daily with plans to continue to taper. Thrombocytopenia(Resol stefany) Anti PF 4 Ab negative. Pt refusing to return to [facility]. Referrals sent to multiple SNF in the area. Await acceptance. Pt will need auth once a facility accepts and medically stable. Medication and Non-Pharmacologic VTE Prophylaxis/Anticoagul ants Anticoagulant AND Antiplatelet Medications (From admission, onward) Start Dose Route Frequency Ordered Stop 08/02/20 1900 enoxaparin 40 mg injection (LOVENOX) (Medical Risk Categories) 40 mg SUBCUTANEOUS DAILY 08/02/20 1850 -- 08/02/20 190 pneumatic compression stockings (fl,oh) VTE Prophylaxis: VTE prophylaxis appropriate GI Prophylaxis: Not indicated Telemetry: Not indicated Disposition: Extended care / halfway facility Code Status: Full Code Plan of care discussed with: Provider SIGNATURE: Selina Nicholas MD PATIENT NAME: Khanh De La Vega DATE: August 04, 2020 TIME: 7:28 AM Page [phone] [facility] ALLIED HEALTHon 08-03-2020 ALLIED HEALTH HNO ID: [id number] Author: Lakshmi Prather Service: Infection Prevention Author Type: ? Type: Allied Health Filed: 08/03/2020 8:59 AM Note Text: INFECTION PREVENTION NOTE Admission Date: 08/02/2020 Patient meets ?COVID Resolved? criteria and isolation has been discontinued as per CDC guidance. COVID Resolved status will remain in storyboard for 90 days from FIRST positive test. Continue to follow [place] Pandemic Precautions. SIGNATURE: Lakshmi Prather PATIENT NAME: Khanh De La Vega DATE: August 03, 2020 TIME: 8:58 AM PAGER/CONTACT #: Infection Prevention, [id number] Infection Prevention after hours/weekend pager: [phone] [facility] Bas Metab 2000 Pnl SerPlon 1 10-03-2019 Anion gap [Moles/Vol] 8 mmol/L Low 9-18 [facility] Comment on above: Order Comment: Speci men Type: BLOOD SPECIMEN Performed By: #### H ISTCL #### [facility] CLIA [id number] [address] [place] [address] Calcium [Mass/Vol] 8.8 mg/dL Normal 8.5-10.2 [facility] Comment on above: Order Comment: Speci men Type: BLOOD SPECIMEN Performed By: #### H ISTCL #### [facility] CLIA [id number] 1 [place] [address] Chloride [Moles/Vol] 96 mmol/L Low 97-105 [facility] Comment on above: Order Comment: Speci men Type: BLOOD SPECIMEN Performed By: #### H ISTCL #### [facility] CLIA [id number] 1 [place] [address] CO2 [Moles/Vol] 26 mmol/L Normal 22-30 [facility] Comment on above: Order Comment: Speci men Type: BLOOD SPECIMEN Performed By: #### H ISTCL #### [facility] CLIA [id number] 1 [place] [address] Creatinine [Mass/Vol] 0.81 mg/dL Normal 0.73-1.22 [facility] Comment on above: Order Comment: Speci [facility] Type: BLOOD SPECIMEN Performed By: #### H ISTCL #### [facility] CLIA [id number] 1 [place] [address] GFR/1.73 sq M.predicted MDRD (S/P/Bld) [Vol rate/Area] mL/min/{1.73_m2} Normal [facility] Comment on above: Order Comment: Speci men Type: BLOOD SPECIMEN Result Comment: >60 eGFR (Estimated GFR) Units of measure: mL/min/1.73 meters squared eGFR is derived from the reexpressed MDRD Study equation using the following parameters: serum creatinine, age, gender and race. The creatinine assay has been calibrated to be traceable to IDMS. An eGFR <60 mL/min/1.73m2 for >3 months is consistent with chronic kidney disease. Refer to KDOQI guidelines for clinical interpretation. In patients with unstable renal function, e.g. those with acute kidney injury, the eGFR may not accurately reflect actual GFR. Performed By: #### H ISTCL #### [facility] CLIA [id number] 1 [place] [address] Glucose [Mass/Vol] 105 mg/dL High 74-99 [facility] Comment on above: [facility]: [facility] Type: BLOOD SPECIMEN Result Comment: The [place] Diabetes Association (ADA) provides guidance for cutoff values for fasting glucose and random glucose. The ADA defines fasting as no caloric intake for at least 8 hours. Fasting plasma glucose results between 100 to 125 mg/dL indicate increased risk for diabetes (prediabetes). Fasting plasma glucose results greater than or equal to 126 mg/dL meet the criteria for diagnosis of diabetes. In the absence of unequivocal hyperglycemia, results should be confirmed by repeat testing. In a patient with classic symptoms of hyperglycemia or hyperglycemic crisis, random plasma glucose results greater than or equal to 200 mg/dL meet the criteria for diagnosis of diabetes. Reference: Standards of Medical Care in Diabetes 2016, Indian Diabetes Association. Diabetes Care. 2016.39(Suppl 1). Performed By: #### H ISTCL #### [facility] CLIA [id number] [address] [place] [address] Potassium [Moles/Vol] 4.5 mmol/L Normal 3.7-5.1 [facility] Comment on above: Order Comment: Speci men Type: BLOOD SPECIMEN Performed By: #### H ISTCL #### [facility] CLIA [id number] [address] [place] [address] Sodium [Moles/Vol] 130 mmol/L Low 136-144 [facility] Comment on above: Order Comment: Speci men Type: BLOOD SPECIMEN Performed By: #### H ISTCL #### [facility] CLIA [id number] [address] [place] [address] Urea nitrogen [Mass/Vol] 16 mg/dL Normal 9-24 [facility] Comment on above: Order Comment: Speci men Type: BLOOD SPECIMEN Performed By: #### H ISTCL #### [facility] CLIA [id number] [address] [place] [address] CASE MANAGEMon 08-03-2020 CASE MANAGEM HNO ID: [id number] Author: Jennifer Grace (Sw) Service: Social Work Author Type: Product Transfer Pumper Type: Care Mgt Progress Note Filed: 08/03/2020 4:59 PM Note Text: CARE MANAGEMENT PROGRESS NOTE SERVICE DATE: 08/03/2020 SERVICE TIME: 4:57 PM LOS: 1 day Readmission Screen Service Date 08/03/2020 1. Did patient have a follow up appointment scheduled prior to discharge? No 2. 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 N/A Pt in from [facility] 3. Did you follow the medication instructions? Na 4.. Did any Caregiver from the [facility] call you at home after discharge? no 5. Prior to or after discharge, did you receive any medical / respiratory equipment? No 6. If you were ordered home care, did they see you at home within 2 days of discharge? MARIS Salcido SIGNATURE: MARIS Mariee PATIENT NAME: Khanh De La Vega DATE: August 03, 2020 TIME: 4:56 PM PAGER/CONTACT #: [phone] [facility] CBC (hemogram) Bld Autoon Erythrocyte distribution width (RBC) [Ratio] 15.6 % High 11.5-15.0 [facility] Comment on above: Order Comment: Speci men Type: BLOOD SPECIMEN Performed By: #### 5 8410-2 ####[facility] [id number] [place] [address] Hematocrit (Bld) [Volume fraction] 31.5 % Low 39.0-51.0 [facility] Comment on above: Order Comment: Speci men Type: BLOOD SPECIMEN Performed By: #### 5 8410-2 ####[facility] [id number] [place] [address] Hemoglobin (Bld) [Mass/Vol] 10.4 g/dL Low 13.0-17.0 [facility] Comment on above: Order Comment: Speci men Type: BLOOD SPECIMEN Performed By: #### 5 8410-2 ####[facility] [id number] [place] [address] MCH (RBC) [Entitic mass] 27.0 pg Normal 26.0-34.0 [facility] Comment on above: Order Comment: Speci men Type: BLOOD SPECIMEN Performed By: #### 5 8410-2 ####[facility] [id number] [place] [address] MCHC (RBC) [Mass/Vol] 33.0 g/dL Normal 30.5-36.0 [facility] Comment on above: Order Comment: Speci men Type: BLOOD SPECIMEN Performed By: #### 5 8410-2 ####[facility] [id number] [place] [address] MCV (RBC) [Entitic vol] 81.8 fL Normal 80.0-100.0 [facility] Comment on above: Order Comment: Speci men Type: BLOOD SPECIMEN Performed By: #### 5 8410-2 ####[facility] [id number] [place] [address] Nucleated RBC (Bld) [#/Vol] 10*3/uL Normal <0.01 [facility] Comment on above: Order Comment: Speci men Type: BLOOD SPECIMEN Performed By: #### 5 8410-2 ####[facility] [id number] [place] [address] Platelet mean volume (Bld) [Entitic vol] 10.0 fL Normal 9.0-12.7 [facility] Comment on above: Order Comment: Speci men Type: BLOOD SPECIMEN Performed By: #### 5 8410-2 ####[facility] [id number] [place] [address] Platelets (Bld) [#/Vol] 279 10*3/uL Normal 150-400 [facility] Comment on above: Order Comment: Speci men Type: BLOOD SPECIMEN Performed By: #### 5 8410-2 ####[facility] [id number] [place] [address] RBC (Bld) [#/Vol] 3.85 10*6/uL Low 4.20-6.00 [facility] Comment on above: Order Comment: Speci men Type: BLOOD SPECIMEN Performed By: #### 5 8410-2 ####[facility] [id number] [place] [address] WBC (Bld) [#/Vol] 17.03 10*3/uL High 3.70-11.00 [facility] Comment on above: Order Comment: Speci men Type: BLOOD SPECIMEN Performed By: #### 5 8410-2 ####[facility] [id number] [place] [address] CONSULTon 08-03-2020 CONSULT HNO ID: [id number] Author: Marilyn Graham Service: Pain Management Author Type: Physician Type: Consults Filed: 08/03/2020 9:00 AM Note Text: Name: KHANH DE LA VEGA Age: [age] year old PAIN MANAGEMENT: IVDA, TV infective endocarditis? Hepatic lesions Pain Description: Patient complains of mild back pain; feels much better Interval HPI: 24H Comfort Meds: Methadone 10 mg x 1 Subjective HPI: 35-year-old male with history of IVDA, recent admission 07/25?07/31 for suspicious TV infective endocarditis (TTE negative for vegetations). Hospital course complicated with Covid infection (initial Covid positive 06/29 followed by negative test at [place] than positive test at [facility]), hepatic lesions of unclear etiology found on MRI. Patient transferred to SNF with PICC line for vancomycin and Cipro through 09/05. ID and GI follow-up ordered. C/T/L MRI negative for infectious etiology, small hemangioma T3, C6; mild multilevel degenerative disease. Patient returned to [facility] 08/02 after PICC line came out 08/01. Patient requesting PICC line SNF. Our team was involved in his care during recent admission. At discharge 07/31 I provided methadone taper prescription starting at 10 mg twice daily x5 days, 5 mg 3 times daily x5 days, 5 mg twice daily x5 days and 5 mg daily discontinued. Per my initial consult 07/18 35-year-old male with history of active IVDA (heroin, fentanyl, methamphetamine-daily times years), hepatitis C presented to [facility] 07/13 with worsening fatigue, fevers. Patient was noted to have leukocytosis; urine drug screen positive for opiates and amphetamines. TTE demonstrated 0.5 x 1 cm tricuspid valve vegetation. Patient was started on IV vancomycin and Zosyn. He was briefly treated with Suboxone for opiate withdrawal. He was transferred to [facility] 07/17 for evaluation by CTS for possible surgery. ? Patient states he last used IV heroin and methamphetamine on 07/13. He was intolerant of Suboxone in the past due to GI upset. He had been on it for about 3 months 5 years ago. He has not been on methadone maintenance. He complains of back pain as well as some mild withdrawal symptoms. OARRS Review: Only 1 prescription 12/11/2018 [place] 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 At discharge 07/31 patient given prescription methadone 5 mg #50 with a taper starting at 10 mg twice daily to taper off over 20 days Current Facility-Administered Medications Medication Dose Route Frequency Provider Last Rate Last Admin - methadone 5 mg tab(s) (DOLOPHINE) 5 mg ORAL TID 9a/3p/9p (BMT) Marilyn Graham - ciprofloxacin HCl 750 mg tab(s) (CIPRO) 750 mg ORAL BID [facility] ([facility], DO 750 mg at 08/02/202326 - vancomycin iv piggyback 1 g in D5W 200 mL (VANCOCIN) 1 g INTRAVENOUS q 8 H Shaun [facility], DO 200 mL/hr at 08/03/20526 1 g at 08/03/20526 - enoxaparin 40 mg injection (LOVENOX) 40 mg SUBCUTANEOUS DAILY Shaun ([facility], [place] 40 mg at 08/02/202326 - sodium chloride 0.9 % (flush) 10 mL (BD POSIFLUSH) 10 mL INTRAVENOUS q 12 H Shaun [facility], DO 10 mL at 08/02/202327 - sodium chloride 0.9 % (flush) 20 mL (BD POSIFLUSH) 20 mL INTRAVENOUS PRN Shaun [facility], [place] - vancomycin dosing and monitoring per pharmacy OTHER As Directed [facility], [place] - acetaminophen (TYLENOL) 325 mg tablet, Take 2 tablets by mouth every 6 hours as needed., Disp: , Rfl: - bisacodyl (DULCOLAX) 10 mg supp, 1 Suppository by RECTAL route once daily as needed., Disp: , Rfl: - ondansetron (ZOFRAN) 4 mg tablet, Take 1 tablet by mouth every 6 hours as needed., Disp: , Rfl: - hydrOXYzine HCl (ATARAX) 50 mg tablet, Take 1 tablet by mouth every 6 hours as needed (Anxiety/ agitation)., Disp: , Rfl: - nicotine (NICODERM) 14 mg/24 hr, Apply 1 Patch as directed once daily., Disp: , Rfl: - senna-docusate (SENNA-S) 8.6-50 mg per tablet, Take 2 tablets by mouth twice daily., Disp: , Rfl: - polyethylene glycol 3350 (MIRALAX, GLYCOLAX) 17 gram packet, Take 1 Packet by mouth once daily., Disp: , Rfl: - prochlorperazine (COMPAZINE) 10 mg tablet, Take 1 tablet by mouth every 6 hours as needed., Disp: , Rfl: - vancomycin (VANCOCIN) 1 gram/200 mL in D5W, Inject 200 mL intravenously every 8 hours., Disp: , Rfl: - ciprofloxacin HCl (CIPRO) 750 mg tablet, Take 1 tablet by mouth twice daily., Disp: 60 tablet, Rfl: 1 - [DISCONTINUED] methadone (DOLOPHINE) 5 mg tablet, Take two tabs (10mg) bid x 5d then one tab tid x 5d then one tab bid x 5d then one tab every day x5d FOR PAIN Do not start before July 30, 2020., Disp: 50 tablet, Rfl: 0 Social History Tobacco Use - Smoking status: Current Every Day Smoker Packs/day: 1.00 Types: Cigarettes - Smokeless tobacco: Never Used Substance Use Topics - Alcohol use: Yes Comment: socially - Drug use: Yes Types: Crystal Meth, Marijuana, Heroin, Amphetamines Comment: pt does inject No family history on file. PAST SURGICAL HISTORY Procedure Laterality Date - IR VASCULAR ACCESS TEAM PICC INSERTION RADIO 07/23/2020 - ORTHOPEDICS SURGERY HX Right pins placed in right hand ROS: All of the following reviewed and negative except as noted below: see HPI GENERAL: no fever, chills, sweats, weight loss, fatigue, generalized weakness HEENT: no headache, vision changes, eye discomfort, hearing change, ear discomfort, sinus pain, nasal discharge or congestion, oral lesions, soreness, dental problem NECK: no adenopathy, discomfort, change in ROM CHEST: no shortness of breath, dyspnea on exertion, wheezing, cough, sputum production or chest pain HEART: no chest pain, palpitations, syncope ABDOMEN: no nausea, vomiting, constipation, diarrhea, abdominal pain : no dysuria, urgency, frequency, history of stones, incontinence NEURO: no confusion or alteration in consciousness, slurred speech, seizure, focal weakness EXTREMITIES: no new pain, edema, change in ROM HEME: no new adenopathy, bruises, petechiae PSYCH: no depression, anxiety, agitation PAIN PSYCHIATRIC EXAM: GENERAL: alert, oriented to person, place, time JUDGMENT AND INSIGHT: intact APPEARANCE: neatly groomed DEMEANOR: coooperative, not hostile, mistrustful, preoccupied, or demanding ACTIVITY: normal, not hyperactive or hypoactive, no tremors, tics EYE CONTACT: normal SPEECH: normal, rate, volume, articulation, coherence, spontaneity MOOD: normal, without overt sadness, grief, anxiety, appropriate to situation IDEATION: deferred MEMORY: intact PHYSICAL EXAMINATION: GENERAL: well nourished and developed; no acute distress; pleasant, alert and oriented x 3; intact judgement and insight HEENT: no evidence of trauma; cranial nerves intact; eyes clear EOMI; no hearing deficits apparent; nasal passages unremarkable; throat and mucous membranes clear NECK: supple without lymphadenopathy; no JVD; no thyromegaly CHEST: clear bilaterally to auscultation; normal chest movement; no rales or rhonchi HEART: regular rate and rhythm, normal S1 and S2, no murmurs, clicks, rubs, or gallops ABDOMEN: soft; nondistended; bowel sounds present; no hepatomegaly; no splenomegaly; no tenderness EXTREMITIES: no evidence of clubbing; no cyanosis; no deformity; no joint effusion; no edema NEURO: cranial nerves intact; no focal deficits; no confusion; no tremor; sensorium normal SKIN: no rash; no skin breakdown; no decubitus lesions HEME: no bruising; no adenopathy PSYCH: no evidence of depression; no anxiety; no agitation; no apparent hallucinations BP 105/62 Pulse 84 Temp 37.5 ?C (99.5 ?F) (Oral) Resp 16 Ht 177.8 cm (5' 10) Wt 64.8 kg (142 lb 13.7 oz) SpO2 95% BMI 20.50 kg/m? BMI 20.50 kg/(m2) ABNORMAL/NEW FINDINGS: NONE RADIOLOGY/DIAGNOSTICS: LABORATORY: CBC: Recent Labs 08/03/20 0527 WBC 17.03* RBC 3.85* HB 10.4* HCT 31.5* PLT 279 MCV 81.8 MCH 27.0 MPV 10.0 CMP: Recent Labs 08/03/20 0527 NA 130* K 4.5 CHLOR 96* CO2 26 BUN 16 CREAT 0.81 GLUC 105* CA 8.8 ANION 8* Heme: No results for input(s): RETICP, ABSRETIC, LD, YEIMY, FE, TIBC, TRANSFERSAT in the last 24 hours. 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 At discharge he was given a methadone taper starting at 10 mg twice daily x5 days to taper off over 20 days Patient initially admitted with concern for TV endocarditis. Patient with ongoing fevers; hepatic lesions noted on MRI of unclear etiology. Follow-up imaging recommended During last admission, patient also complained of ongoing back pain. C/T/L MRI negative for infectious process but did demonstrate mild multilevel degenerative disc disease, small hemangioma x2 Will order methadone 5 mg p.o. 3 times daily with plans to continue to taper. Discussed plan with patient Anticipate new SNF at discharge. Methadone taper prescription placed in chart Our team will sign off; available as needed Marilyn Graham MD ADDENDUM: Portions of this note were copied so as to provide important historical information essential in contributing to medical decision making today. Normal [facility] PLAN OF CAREon 08-03-2020 PLAN OF CARE HNO ID: [id number] Author: Toby Villatoro Service: Pharmacy Author Type: Pharmacist Type: Plan of Care Filed: 08/03/2020 8:28 AM Note Text: MEDICATION HISTORY AND MEDICATION RECONCILIATION Patient Name:Jannette De La Vega : 1985 Source of history:prison/Other MAR - [place] Medication Nonadherence Identified: No barriers noted The above information represents the best possible medication history: Yes Reconciliation completed? Yes All NON LICENSED OPERATOR medications addressed by LIP Additional comments: Patient dc frim [facility] to SNF on 07/31/2020 and readmitted here last night due to loss of PICC line. Current NON LICENSED OPERATOR med list reflects dc list from previous admission. Confirmed all meds with MAR from SNF as well. Allergies: ALLERGIES Allergen Reactions - Penicillins Swelling - Sulfa (Sulfonamide * Swelling Preferred Pharmacy: From [facility] Current NON LICENSED OPERATOR Medications: Prior to Admission medications as of 08/03/20 0826 Medication Sig Last Dose Taking acetaminophen (TYLENOL) 325 mg tablet Take 2 tablets by mouth every 6 hours as needed. Yes bisacodyl (DULCOLAX) 10 mg supp 1 Suppository by RECTAL route once daily as needed. Yes ondansetron (ZOFRAN) 4 mg tablet Take 1 tablet by mouth every 6 hours as needed. Patient taking differently: Take 4 mg by mouth every 6 hours as needed for Nausea/Vomiting. Yes hydrOXYzine HCl (ATARAX) 50 mg tablet Take 1 tablet by mouth every 6 hours as needed (Anxiety/ agitation). Yes nicotine (NICODERM) 14 mg/24 hr Apply 1 Patch as directed once daily. Yes senna-docusate (SENNA-S) 8.6-50 mg per tablet Take 2 tablets by mouth twice daily. Yes polyethylene glycol 3350 (MIRALAX, GLYCOLAX) 17 gram packet Take 1 Packet by mouth once daily. Yes prochlorperazine (COMPAZINE) 10 mg tablet Take 1 tablet by mouth every 6 hours as needed. Yes vancomycin (VANCOCIN) 1 gram/200 mL in D5W Inject 200 mL intravenously every 8 hours. Yes ciprofloxacin HCl (CIPRO) 750 mg tablet Take 1 tablet by mouth twice daily. Yes methadone (DOLOPHINE) 5 mg tablet One po tid x 5 days then one po bid x 5 days then one tab daily for 5 days FOR PAIN Do not start before August 04, 2020. Toby Villatoro, ClareD August 03, 2020 8:26 AM Normal [facility] PROCEDUREon 08-03-2020 PROCEDURE HNO ID: [id number] Author: Marley (Rn) INDY Montano Service: PICC Team Author Type: Registered Nurse Type: Procedures Filed: 08/03/2020 1:00 PM Note Text: PICC NURSE INSERTION NOTE DATE OF PROCEDURE: August 03, 2020 TIME OF PROCEDURE: 1225 ORDERING PHYSICIAN: celeste INFORMED CONSENT: Obtained per hospital policy. INDICATION FOR LINE PLACEMENT: COPAT CONDITION OF LINE PLACEMENT: Sterile PRIMARY PROCEDURALIST: Felicitas Grijalva RN ATMOSPHERIC DRIER TENDER: Marley Montano RN PRE-PROCEDURE REVIEW ALLERGIES Allergen Reactions - Penicillins Swelling - Sulfa (Sulfonamide * Swelling Known History of Upper Venous Thrombosis: No Known History of Permanent Pacemaker or Automated Implanted Cardiac Device: No Previous Breast Surgery of Lymph Node Dissection: No eGFR-All Other Races Date/Time Value Ref Range Status 08/03/2020 05:27 AM >60 Final Comment: eGFR (Estimated GFR) Units of measure: mL/min/1.73 meters squared eGFR is derived from the reexpressed MDRD Study equation using the following parameters: serum creatinine, age, gender and race. The creatinine assay has been calibrated to be traceable to IDMS. An eGFR <60 mL/min/1.73m2 for >3 months is consistent with chronic kidney disease. Refer to KDOQI guidelines for clinical interpretation. In patients with unstable renal function, e.g. those with acute kidney injury, the eGFR may not accurately reflect actual GFR. eGFR- Date/Time Value Ref Range Status 08/03/2020 05:27 AM >60 Final eGFR Date/Time Value Ref Range Status 02/10/2018 04:30 PM >60 >60mL/min/1.73m2 Final Comment: If the patient is , multiply the result by 1.210. History of Renal Disease: No Ultrasound Assessment Complete: Yes PROCEDURE NARRATIVE SAFE PRACTICE Hand Hygiene per Hospital Policy: Yes Skin Preparation Unit Dose Applicator Used: Chloraprep (CHG + alcohol), allowed to dry. Procedure Surface Cleansed with Antimicrobial Wipes: Yes Barriers Used by Proceduralist and all Assisting Personnel: Yes UNIVERSAL PROTOCOL / SAFETY CHECKLIST Procedure to be performed: Peripherally Inserted Central Catheter Sign in Communication: Completed Time Out: Team Confirms the Correct Patient, Correct Procedure, Correct Site and Site Marking, Correct Position (if applicable), Prep and Dry Time (if applicable). Time: 1235 Affirmation of Time Out: N/A Sign Out Discussion: Completed Marley Montano RN CATHETER PLACEMENT Brand: [employer] Lot: [id number] Number of Lumens: 1 Type of PICC: Power Injectable PICC Lumen Size: 4 Bangladeshi PLACEMENT TECHNIQUE Lidocaine: Yes, Lidocaine 1% Volume 1.5 mL Subcutaneous Modified Seldinger Technique Used to Place Line via the Right Basilic Ultrasound Guidance: Yes Number of Attempts at Insertion: 1 Ensured control of guidewire during all aspects of the procedure: Yes Accounted for entire guidewire upon removal: Yes Internal Length: 37 cm External Length: 1 cm Trim Length: 38 cm Mid-Arm Circumference: 28 centimeters Post Insertion Pain Level Related to Procedure: 0 Action Taken to Address Pain: None needed Verified Placement: Blood return and flushes with ease and Tip location system or device indicates the tip is located in the SVC/CAJ. Line was Flushed with 20 cc normal saline Line Secured with: Securement device Sterile Dressing Applied and Dated: Yes Sterile Caps on all Ports Prior to Leaving Procedure Area: Yes, Disinfection caps applied SPECIMENS: None COMPLICATIONS: None Patient Education Materials: Placed in chart [facility] Line Insertion Checklist utilized during this procedure QUESTIONS or PROBLEMS: Call [phone] SIGNATURE: Marley Montano, RN PATIENT NAME: Khanh De La Vega DATE: August 03, 2020 TIME: 12:47 PM PAGER/CONTACT PHONE: [phone] [facility] PROGRESSon 08-03-2020 PROGRESS HNO ID: [id number] Author: Fortunato Corcoran Service: Hospital Medicine Author Type: Resident Type: Progress Notes Filed: 08/03/2020 9:57 AM Note Text: Attestation signed by Dimas Alicia at 08/03/2020 8:45 PM Attending Note I personally saw and examined the patient on August 03, 2020. I reviewed the resident's note. I agree with the resident's assessment and plan unless otherwise noted. Signature: Dimas Alicia MD Date: 08/03/2020 Time: 8:45 PM Pager: [phone] HOUSE MEDICINE SERVICE PROGRESS NOTE SERVICE DATE: August 03, 2020 NIGHT AND WEEKEND COVERAGE: From 6 AM to 5 PM: You may reach the House Medicine sales and marketing intern currently assigned to this patient by finding their pager number on the treatment team (they will be assigned as the sales and marketing intern or resident). It is the last four digits in the phone number beginning with ([phone]). We encourage the use of D[employer] Secure Chat. SUBJECTIVE HPI: 35 year old male with PMHx IV drug use, schizophrenia, depression and anxiety, presents to [facility] from halfway facility on 08/02/2020. He was recently admitted to [facility] from 07/17/20 to 07/31/2020 for suspicion of infective endocarditis, however transthoracic echocardiogram did not show vegetations. Hospital course was complicated with COVID infection AND hepatic lesions found on MRI. He was transferred to halfway facility with a PICC line and to continue Vancomycin + Ciprofloxacin [stop date on 09/05/20]. He was planned to have transthoracic echocardiogram after 4 weeks and to follow up with infectious disease [Dr. Bowens] and gastroenterology [Dr. Hernández] for his hepatic lesions. ? While at the halfway facility, he was having a sponge bath, and his bandage around his picc line was removed resulting in his picc line to fall out on 08/01. The day afterwards, his right arm was drenched in blood and he felt unsafe since they did not check his vitals or care for his PICC line, so he wished to come back to Emergency Department to be sent to a different halfway facility. Patient will be admitted to House Medicine for replacement of PICC line and safe discharge to halfway facility. Interval Events: Patient continues to report back pain and shoulder pain left sided as he reported during the last admission. Does not report any chest pain or shortness of breath. OBJECTIVE Medications: IV Infusions: Scheduled: - methadone, 5 mg, TID 9a/3p/9p (BMT) - ciprofloxacin HCl, 750 mg, BID - vancomycin, 1 g, q 8 H - enoxaparin, 40 mg, DAILY - sodium chloride 0.9 % (flush), 10 mL, q 12 H - vancomycin dosing and monitoring per pharmacy, , As Directed PRN: - sodium chloride 0.9 % (flush), 20 mL, PRN Vital Signs: BP 105/62 Pulse 84 Temp (Src) 99.5 (Oral) Resp 16 Ht 5' 10 (1.78m) Wt 142 lb 13.7 oz (64.8kg) SpO2 95% BMI 20.50 kg/(m2). O2 Therapy: Room Air Patient Vitals for the past 24 hrs: Pulse BP 08/03/20 0500 84 105/62 08/02/20 2037 68 125/79 08/02/20 1908 88 111/79 08/02/20 1800 81 102/68 08/02/20 1700 75 114/74 08/02/20 1600 ? 107/70 08/02/20 1503 88 121/87 Physical Exam Performed: Due to the current efforts to prevent transmission of COVID-19 and also the need to preserve PPE for caregivers, a [id number] encounter with the patient was not performed. That being said, all relevant records and diagnostic tests were reviewed, including laboratory results and imaging. Please reference attending physician documentation for physical exam. Care will be coordinated with the team members. Lines, Drains, and Airways Line Peripheral 08/02/20 1900 Assessment Short Left Antecubital 20 Gauge less than 1 day Reviewed lines and needs to be continued: REASONS: Intravenous antibiotics Labs: CBC: Recent Labs 08/03/2052607/31/2044507/30/2064107/29/2012407/28/20409 WBC 17.03* 12.86* 15.43* 16.01* 14.30* HB 10.4* 8.8* 8.5* 9.2* 9.0* HCT 31.5* 27.9* 27.1* 28.5* 28.7* PLT 279 92* 139* 210 125* MCV 81.8 83.3 83.6 81.7 83.4 RDWCV 15.6* 15.0 14.9 14.7 14.6 COAG: Recent Labs 08/03/2052607/29/20124 APTT 33.0* -- INR 1.1 1.2 BMP: Recent Labs 08/03/2052607/31/2044307/30/2064107/29/2012407/28/20409 GLUC 105* 109* 113* 99 102* NA 130* 133* 130* 129* 132* K 4.5 4.7 4.2 4.8 3.6* CHLOR 96* 96* 96* 96* 96* CO2 26 28 26 24 27 ANION 8* 9 8* 9 9 BUN 16 11 17 14 14 CREAT 0.81 0.79 0.87 0.91 0.86 CHEM: Recent Labs 08/03/2052607/31/2044307/30/2064107/29/2012407/28/20409 TPROT -- -- -- 8.4* -- CA 8.8 8.5 8.4* 8.6 8.7 HEPATIC: Recent Labs 07/29/20124 ALKPHOS 198* ALT 16 AST 38 TBILI 0.3 URINALYSIS:No results for input(s): PH, SPGR, UGLUC, UBILI, UKET, UHB, UPROT, UROBIL, UWBC, SSA in the last 168 hours. Invalid input(s): NITR CARDIAC: No results for input(s): CKTEST, CKMB, CKMBP in the last 168 hours.TROPONIN@:8,No results found for: BNP:8)@ No intake or output data in the 24 hours ending 08/03/20 0707 Serum creatinine: 0.81 mg/dL 08/03/20 0527 Estimated creatinine clearance: 115.6 mL/min Standardized Care Interventions: Labs: Routine blood work not indicated for tomorrow Assessment/Plan Problem List Cannabis dependence (HCC) Nicotine use disorder, F17.2 Infective endocarditis Disposition - Patient will need disposition to new halfway facility. Previously at [facility]. ? ?Infective endocarditis - Blood cultures negative. Negative fungal cultures(till date, ordered on 07/20). - Transthoracic echocardiogram [07/27] shows mildly thickened tricuspid valve leaflets, however no signs of endocarditis - Patient will need new PICC line prior to discharge to halfway facility - Plan for transesophageal echocardiogram in [address] Bowens - ID recommend continuing Vanc/Cipro until 09/05/2020. At this time, no need for consult since antibiotic regimen is in place. Will continue to monitor for worsening symptoms, fevers. ? Intrahepatic Lesions, Likely Abscesses vs Metastatic Disease - MRI Liver 07/27/2020 shows Multiple too numerous to count targetoid type lesions throughout the liver. Given patient's history, multiple hepatic abscesses are consideration. Metastatic disease is is not excluded. ? - Likely related to his history of IVDU, and hepatitis C positivity. - Potentially could obtain lesion biopsy?at a later date?as some are superficial anteriorly. - GI was consulted on previous admission and instructed to follow-up as outpatient. ? Nicotine dependence. - Consider nicotine patch per patient request ? H/o opioid use - Pain management consulted; appreciate recommendations AND management - Continue methadone?taper. Thrombocytopenia(Resol stefany) Anti PF 4 Ab negative. Awaiting placement Medication and Non-Pharmacologic VTE Prophylaxis/Anticoagul ants Anticoagulant AND Antiplatelet Medications (From admission, onward) Start Dose Route Frequency Ordered Stop 08/02/20 1900 enoxaparin 40 mg injection (LOVENOX) (Medical Risk Categories) 40 mg SUBCUTANEOUS DAILY 08/02/20 1850 -- 08/02/20 1900 pneumatic compression stockings (fl,oh) VTE Prophylaxis: VTE prophylaxis appropriate GI Prophylaxis: Not indicated Telemetry: Not indicated Disposition: Extended care / halfway facility Code Status: Full Code Plan of care discussed with: Provider SIGNATURE: Fortunato Corcoran MD PATIENT NAME: Khanh De La Vega DATE: August 03, 2020 TIME: 7:04 AM Page 0815 Normal [facility] PT EDon 08-03-2020 PT ED HNO ID: [id number] Author: Marley (Rn) INDY Montano Service: PICC Team Author Type: Registered Nurse Type: Patient Education Filed: 08/03/2020 12:44 PM Note Text: PATIENT EDUCATION VASCULAR ACCESS TEAM TOPIC: Peripherally Inserted Central Catheter READINESS TO LEARN COGNITIVE ABILITY: Alert and oriented MOTIVATION TO LEARN: Interested FAMILY SUPPORT: Unable to assess - Family not present INSTRUCTION PROVIDED TO: Patient PATIENT LEARNS BEST BY: Individual Instruction Verbal Instruction FACTORS AFFECTING LEARNING:None PHYSICAL LIMITATIONS AFFECTING LEARNING: Fatigue LEARNING RESPONSE METHOD OF INSTRUCTION: Individual instruction Verbal instruction PATIENT / FAMILY RESPONSE: Verbalizes understanding of pre-procedure instructions Verbalizes understanding of post-procedure instructions FOLLOW-UP PLAN: Complete - No need for follow-up Contact information given.Call Vascular quality liaison with any concerns @ . SUPPLEMENTAL MATERIAL: PICC Line brochure and [facility] catheter-Associated Bloodstream Infection fact sheet [facility] PT Pnl PPPon 08-03-2020 INR Coag (PPP) [Relative time] 1.1 {INR} Normal 0.9-1.3 [facility] Comment on above: Order Comment: Speci men Type: BLOOD SPECIMEN Result Comment: Celeste min K Antagonist (VKA) Therapeutic Range: INR 2 to 3 (Target INR of 2.5) Note: For patients treated with VKA drugs, such as warfarin, the [employer] 2012 Guideline recommends a therapeutic INR range of 2 to 3 (target INR of 2.5). This recommendation includes high-risk patients with antiphospholipid syndrome with previous arterial or venous thromboembolism, current-generation mechanical or bioprosthetic aortic heart valve replacement. Note: Patients with mechanical aortic valve replacement and additional risk factors for thromboembolic events (atrial fibrillation, previous thromboembolism, LV dysfunction, hypercoagulable conditions) or an older generation mechanical AVR (i.e., ball in-Cage) or any mechanical MVR should have a INR therapeutic range of 2.5 to 3.5 (target INR of 3). Crow GH, et al. Chest 2012, 141:7S-47S Wayne STORY et al. [facility] 2017, 70: 252-289 Performed By: #### 3 4528-0, 73961-1 ####[facility]ORY[facility]IA [id number] [place] [address] PT Coag (PPP) [Time] 11.6 s Normal 9.7-13.0 [facility] Comment on above: Order Comment: Speci men Type: BLOOD SPECIMEN Performed By: #### 3 4528-0, 32651-4 ####[facility] [id number] [place] [address] aPTT PPPon 08-03-2020 aPTT Coag (PPP) [Time] 33.0 s High 23.0-32.[address] [facility] Comment on above: Order Comment: Speci men Type: BLOOD SPECIMEN Performed By: #### 3 4528-0, 60244-0 ####[facility]ORY[facility] [id number] [place] [address] CASE MGT INIT ASSESon 2019 CASE MGT INIT ASS HNO ID: [id number] Author: Derick Yoo (Sw) Service: Care Management Author Type: Product Transfer Pumper Type: Care Mgt Initial Assessment Filed: 08/02/2020 10:07 PM Note Text: CARE MANAGEMENT: ASSESSMENT AND DISCHARGE PLAN SERVICE DATE: August 02, 2020 SERVICE TIME: 4:00 PM PRIMARY CARE PHYSICIAN: No primary care provider on file. Phone: None ADMISSION STATUS: Inpatient Needs Prior to Discharge: Facility or Agency Choices;Precertificati on;Discharge Transportation MEDICAL: [facility] COMMUN[facility] PLAN MEDICAID Patient/[place] Operator Stated Goals: To have reduction in symptoms;To return home to life as it was Health Insurance: [facility];Medicaid Health Issues Impacting Discharge Plan: (IV Antibotics) Last Discharge Date: 07/31/20 Is this Within the Past 30 days? Last discharge within 30 days: Yes Is this a planned readmission?: No Unplanned Reason: Other: See Comment(patient left SNF after less than a day) Followed Up with Appointment Prior to Admission: No appointment scheduled Advance Directive: Current Advance Directive: None Veneer Measurer Attempted to Assist with AD Completion: Yes Action: Education Provided;Patient Unwilling Health LiteracyHow often do you need to have someone help you when you read instructions, pamphlets, or other written material from your doctor or pharmacy? : 2 - Rarely How confident are you filling out medical forms by yourself?: 2 - Quite a bit If Patient scores > 3 on either question, the following interventions were put into place:: Use of plain language and active listening with Patient and family;Teach back methods employed to ensure comprehension;Use concrete and specific phrases, avoid medical jargon;Patient did not score > 3 on either question.;Sit with Patient;Forms of communication used with patient and family Baseline Mental Status Functional Status: Independent Does Patient Currently Receive Any Community Services or Home Care?: None Equipment Prior to Admission: None Has the Patient Been in a Assisted Facility in the Past 30 days?: Yes Location and Dates: [facility] 08-01-20 till 08-02-20 SOCIAL: Living Arrangements: Home Lives With: Alone Financial Resources: Unemployed Primary Contact: Extended Emergency Contact Information Primary Emergency Contact: diogo urbano Mobile Relation: Friend Supportive Patient Contact:: Unable to assess at this time Social Needs Food insecurity Worry: Not on file Inability: Never true Finances, Health Issues and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 Order Comment: Speci men Type: BLOOD SPECIMEN Performed By: #### V ANCRA #### [facility] CLIA [id number] [address] [place] [address] Nucleated RBC (Bld) [#/Vol] 10*3/uL Normal <0.01 [facility] Comment on above: Order Comment: Speci men Type: BLOOD SPECIMEN Performed By: #### V ANCRA #### [facility] CLIA [id number] [address] [place] [address] Platelet mean volume (Bld) [Entitic vol] Normal [facility] Comment on above: Order Comment: Speci men Type: BLOOD SPECIMEN Result Comment: Unab le to Report. Performed By: #### V ANCRA #### [facility] CLIA [id number] [address] [place] [address] Platelets (Bld) [#/Vol] 92 10*3/uL Low 150-400 [facility] Comment on above: Order Comment: Speci men Type: BLOOD SPECIMEN Performed By: #### V ANCRA #### [facility] CLIA [id number] [address] [place] [address] RBC (Bld) [#/Vol] 3.35 10*6/uL Low 4.20-6.00 [facility] Comment on above: Order Comment: Speci men Type: BLOOD SPECIMEN Performed By: #### V ANCRA #### [facility] CLIA [id number] [address] [place] [address] WBC (Bld) [#/Vol] 12.86 10*3/uL High 3.70-11.00 [facility] Comment on above: Order Comment: Speci men Type: BLOOD SPECIMEN Performed By: #### V ANCRA #### [facility] CLIA [id number] [address] [place] [address] CONSULT PROGon 07-31-2020 CONSULT PROG HNO ID: [id number] Author: Toby Villatoro Service: Pharmacy Author Type: Pharmacist Type: Consult Progress Note Filed: 07/31/2020 9:38 AM Note Text: PHARMACY VANCOMYCIN DOSING NOTE Patient Name: Khanh De La Vega Admission Date: 07/17/2020 Date of Consult: 07/31/2020 Time of Consult: 9:31 AM Indication: Endocarditis Goal Range: 15-25 mcg/mL RECOMMENDATIONS/PLAN: Pharmacy consulted for vancomycin dosing for Khanh De La Vega, a 35 year old, male who is being treated with vancomycin for Endocarditis with planned therapy through 09/05/2020 1. Patient is currently ordered 1.25g iv q8h. Today is day 14th of therapy. 2. The most recent vancomycin level was 20.5 mcg/mL drawn at 0823 on 07/31/2020. This is a 7 hour level on the 14th day of therapy. 3. Will decrease vancomycin to 1 g with a dosing interval of q8h 4. The next vancomycin level will be ordered for 5 days unless clinically indicated sooner. (Pharmacy will order) We will follow patient renal function, vancomycin levels and doses with you during the course of therapy. Additional recommendations will appear in follow up notes. If you have any questions, please contact Clare YbarraD at [phone]. Will adjust vancomcyin as above with goal to target trough closer to 15mg/dL. Patient to be discharged soon. Should follow up trough later this week at facility. Age: [age] year old Allergies: ALLERGIES Allergen Reactions - Penicillins Swelling - Sulfa (Sulfonamide * Swelling Last 3 Encounter Wt Readings: Date: Wt: 07/17/2020 76.7 kg (169 lb 1.6 oz) 11/23/2019 81.6 kg (180 lb) 02/25/2018 81.6 kg (180 lb) Last 1 Encounter Ht Readings: Date: Ht: 07/17/2020 175.3 cm (5' 9) Estimated Creatinine Clearance: 129.3 mL/min (based on SCr of 0.79 mg/dL). Temp (24hrs), Av.8 ?C (98.2 ?F), Min:36.5 ?C (97.7 ?F), Max:37 ?C (98.6 ?F) - Current Temp: 37 ?C (98.6 ?F) Labs BUN (mg/dL) Date Value 07/31/2020 11 07/30/2020 17 07/29/2020 14 02/10/2018 16 04/23/2017 8 04/21/2017 10 Creatinine (mg/dL) Date Value 07/31/2020 0.79 07/30/2020 0.87 07/29/2020 0.91 02/10/2018 0.92 04/23/2017 0.81 04/21/2017 0.88 WBC Date Value 07/31/2020 12.86 k/uL (H) 07/30/2020 15.43 k/uL (H) 07/29/2020 16.01 k/uL (H) 02/10/2018 10.24 thou/cmm (H) 04/23/2017 9.9 thou/cmm 04/21/2017 9.9 thou/cmm Vancomycin Levels: Vancomycin (ug/mL) Date/Time Value 07/31/2020 0823 20.5 (H) 07/30/2020 0642 25.7 (H) Toby Villatoro PharmD [facility] CONSULT PROG HNO ID: [id number] Author: Toby Villatoro Service: Pharmacy Author Type: Pharmacist Type: Consult Progress Note Filed: 07/31/2020 8:15 AM Note Text: PHARMACY VANCOMYCIN DOSING NOTE Patient Name: Khanh De La Vega Admission Date: 07/17/2020 Date of Consult: 07/31/2020 Time of Consult: 8:12 AM Indication: Endocarditis Goal Range: 15-25 mcg/mL RECOMMENDATIONS/PLAN: Pharmacy consulted for vancomycin dosing for Khanh De La Vega, a 35 year old, male who is being treated with vancomycin for Endocarditis with planned therapy through 09/05/2020 1. Patient is currently ordered vancomycin 1.25g iv q8h. Today is day 14th of therapy. 2. No vancomycin level has been drawn for this dosing regimen. 3. The present dose of vancomycin is the recommended dosage for this patient at this time. Continue therapy as prescribed. 4. The next vancomycin level has been ordered for 0900 on 07/31/2020 (Completed) We will follow patient renal function, vancomycin levels and doses with you during the course of therapy. Additional recommendations will appear in follow up notes. If you have any questions, please contact Sabrina Villatoro PharmD at [phone]. Patient likely to go to SNF today for IV abx through 09/05/2020. Renal function stable. Check trough before 1000 dose to determine appropriate DC dose. Given extended duration of vancomycin, would like to target trough closer to 15mg/dL. Age: [age] year old Allergies: ALLERGIES Allergen Reactions - Penicillins Swelling - Sulfa (Sulfonamide * Swelling Last 3 Encounter Wt Readings: Date: Wt: 07/17/2020 76.7 kg (169 lb 1.6 oz) 11/23/2019 81.6 kg (180 lb) 02/25/2018 81.6 kg (180 lb) Last 1 Encounter Ht Readings: Date: Ht: 07/17/2020 175.3 cm (5' 9) Estimated Creatinine Clearance: 129.3 mL/min (based on SCr of 0.79 mg/dL). Temp (24hrs), Av.8 ?C (98.2 ?F), Min:36.5 ?C (97.7 ?F), Max:37 ?C (98.6 ?F) - Current Temp: 37 ?C (98.6 ?F) Labs BUN (mg/dL) Date Value 07/31/2020 11 07/30/2020 17 07/29/2020 14 02/10/2018 16 04/23/2017 8 04/21/2017 10 Creatinine (mg/dL) Date Value 07/31/2020 0.79 07/30/2020 0.87 07/29/2020 0.91 02/10/2018 0.92 04/23/2017 0.81 04/21/2017 0.88 WBC Date Value 07/31/2020 12.86 k/uL (H) 07/30/2020 15.43 k/uL (H) 07/29/2020 16.01 k/uL (H) 02/10/2018 10.24 thou/cmm (H) 04/23/2017 9.9 thou/cmm 04/21/2017 9.9 thou/cmm Vancomycin Levels: Vancomycin (ug/mL) Date/Time Value 07/30/2020 0642 25.7 (H) 07/27/2020 1530 22.9 (H) Toby Villatoro PharmD Normal [facility] NUTRITIONon 07-31-2020 NUTRITION HNO ID: [id number] Author: Dorothy (Film Masker) Johnna Service: Nutrition Therapy Author Type: Facility Rehab Director Type: Nutrition Filed: 07/31/2020 1:44 PM Note Text: Attestation signed by Denis Gonzales) JOSE ANTONIO Carlton at 07/31/2020 2:23 PM TEACHING DIETITIAN NOTE OF PERSONAL INVOLVEMENT IN CARE: I have reviewed the Facility Rehab Director documentation and edited as appropriate. I have reviewed and agree with the above stated recommended nutrition intervention(s). Signature: Denis Carlton RD, LD Date: 04/18/2019 Time: 2:53 PM NUTRITION THERAPY REASSESSMENT NOTE SERVICE DATE: 07/31/2020 SERVICE TIME: 10:40 AM Nutrition Assessment: Recommended Malnutrition Diagnosis: Mild Protein-Calorie Malnutrition In the context of: Social/Environmental Circumstance Based on: Muscle Loss Nutrition Diagnosis: Problem: Increased nutrient needs Related to: Acute illness As evidenced by: Depletion of fat/muscle stores;Laboratory markers;Imaging studies;Medical condition Estimated kilocalorie needs: 7539-2227 Calorie Calculation Method: 25-30 kcals/kg Estimated protein needs (grams): 88-117 Grams protein determined by: 1.2-1.6 g/kg Care Plan: Continue current diet Supplements: Ensure Max(chocolate 2x daily) Monitor and Evaluation: Meet greater than 75% of estimated needs;Monitor labs, I/Os, vital signs, weight;Monitor bowel function;Monitor fluid/electrolyte balance Discharge Recommendations: Diet Diet: Regular Oral Supplements: Ensure or supplement of pt choice Interval History: 35 yo male admitted for 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 PMH of Covid-19 on 06/29/20 and has resolved. Pain management following and GI following for liver lesions w hx of Hep C positive. Intake History: Nutrition Intake Prior to Admission: Greater than 75% estimated energy needs greater than 7 days Current Intake: Less than 75% estimated energy needs over: 1 day Current Diet: DIET REGULAR Anthropometrics: Height: 175.3 cm (5' 9) Weight: 76.7 kg (169 lb 1.6 oz) Dosing Weight: 72.6 kg (160 lb) Usual Weight: 81.6 kg (180 lb) Body mass index is 24.97 kg/m?. Normal Weight change percentage over time: 11 pounds lost over 8 months time (insignificant)(Pt reports wt has been stable) Physical Exam: Subcutaneous fat loss: No fat loss Muscle loss: Mild(unsure of pt baseline; possible mild muscle loss d/t regressed function over hospital stay) Potential micronutrient deficiency: Teeth;Skin;Nails Edema/Ascites: No edema GI Symptoms: None Functional Status: Not related to malnutrition status Potential Signs of Inflammation: Hyperglycemia;Leukocyt osis;Hypoalbuminemia;I maging studies;Microbiologic cultures MNT Billing Type: Re-assess/15 min 3 units SIGNATURE: Caitie Chowdary PATIENT NAME: Khanh De La Vega DATE: July 31, 2020 TIME: 12:07 PM PAGER: [phone] [facility] PLAN OF CAREon 07-31-2020 PLAN OF CARE HNO ID: [id number] Author: Toby Villatoro Service: Pharmacy Author Type: Pharmacist Type: Plan of Care Filed: 07/31/2020 4:11 PM Note Text: DISCHARGE MEDICATION REVIEW BY PHARMACY Patient Name: Khanh De La Vega Account #: Data Unavailable Admission Date: 07/17/2020 Date of Contact: July 31, 2020 Time of Contact: 2:54 PM Medication list was reviewed by a Pharmacist for drug interactions or drug related problems:Yes Below is a summary of pharmacist recommendations discussed with LIP: No Recommendations at this time from Discharge Medication List. Patient being dc to facility. Team needs to change cipro to po for transfer to facility. Toby Villatoro PharmD July 31, 2020 2:54 PM Pager: [phone] 07/31/2020 2:54 PM Medication List START taking these medications acetaminophen 325 mg tablet Commonly known as: TYLENOL Take 2 tablets by mouth every 6 hours as needed. bisacodyl 10 mg Supp Commonly known as: DULCOLAX 1 Suppository by RECTAL route once daily as needed. ciprofloxacin HCl 750 mg tablet Commonly known as: CIPRO Take 1 tablet by mouth twice daily. hydrOXYzine HCl 50 mg tablet Commonly known as: ATARAX Take 1 tablet by mouth every 6 hours as needed (Anxiety/ agitation). methadone 5 mg tablet Commonly known as: DOLOPHINE Take two tabs (10mg) bid x 5d then one tab tid x 5d then one tab bid x 5d then one tab every day x5d FOR PAIN Do not start before July 30, 2020. nicotine 14 mg/24 hr Commonly known as: NICODERM Apply 1 Patch as directed once daily. Start taking on: August 01, 2020 ondansetron 4 mg tablet Commonly known as: ZOFRAN Take 1 tablet by mouth every 6 hours as needed. polyethylene glycol 3350 17 gram packet Commonly known as: MIRALAX, GLYCOLAX Take 1 Packet by mouth once daily. Start taking on: August 01, 2020 prochlorperazine 10 mg tablet Commonly known as: COMPAZINE Take 1 tablet by mouth every 6 hours as needed. senna-docusate 8.6-50 mg per tablet Commonly known as: SENNA-S Take 2 tablets by mouth twice daily. vancomycin 1 gram/200 mL in D5W Commonly known as: VANCOCIN Inject 200 mL intravenously every 8 hours. Where to Get Your Medications You can get these medications from any pharmacy Bring a paper prescription for each of these medications ? methadone 5 mg tablet Normal [facility] PROGRESSon 07-31-2020 PROGRESS HNO ID: [id number] Author: Fortunato (Rodríguez) Nilo Service: Hospital Medicine Author Type: Resident Type: Progress Notes Filed: 07/31/2020 2:12 PM Note Text: Attestation signed by Dimas Alicia at 07/31/2020 3:37 PM Attending Note I personally saw and examined the patient on July 31, 2020. I reviewed the resident's note. I agree with the resident's assessment and plan unless otherwise noted. Signature: Dimas Alicia MD Date: 07/31/2020 Time: 3:37 PM Pager: [phone] HOUSE MEDICINE SERVICE PROGRESS NOTE SERVICE DATE: July 31, 2020 NIGHT AND WEEKEND COVERAGE: From 6 AM to 5 PM: You may reach the House Medicine sales and marketing intern currently assigned to this patient by finding their pager number on the treatment team (they will be assigned as the sales and marketing intern or resident). It is the last [phone] in the phone number beginning with ([phone]). We encourage the use of [employer] Secure Chat. SUBJECTIVE HPI: Patient is a 35 yr male who is a chronic IVDU since 2009 and Hep C positive ( antibody positive on 11/23/19), presented to the [facility] for chronic fatigue on 07/13/20. He was found to have opiate withdrawal symptoms and had spiking fevers maximum temp being 102 F, raised WBC and negative blood cultures (07/15). His urine tox was positive for opiates, amphetamines and opiates. 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 ID consultation was done and his zosyn was switched to cefepime. He was treated for b with buprenorphine which was tapered. ? He was found to be negative for HIV and Hep B and his WBCs started trending down, however he still spiked fevers. Repeat blood cultures on 07/15 were sent which is still pending. He was transferred to [facility] for CT surgery evaluation for possible surgery for his IE. ? At the time of admission, patient was febrile 102 F. Complained of global pain. He admitted to intermittent abdominal discomfort and said he had been constipated for 3 days. He denied any chest pain, palpitations, lightheadedness, or bilateral LL swelling. He said his last IVDU was on Thursday morning (07/13/20) before he presented to the hospital. He denied the use of leg veins for the same. ? CTS saw the patient and recommend a GRICELDA for further evaluation. However given his return to covid positive status, that may be delayed. ID was also following the patient and they recommended starting him on vanc plus cefepime. His blood Cxs from here as well as [place] [facility] have been negative. ? Of note, he was covid positive on 06/29/20 however he was tested negative during his hospital admission in [place]. However his COVID result again came positive and he moved to isolation laird. Patient was initially supposed to get a GRICELDA done however it got delayed due to his COVID status. He underwent a CAT A/P for finding A source of infection and that was significant for a lesion n the right hepatic dome. It was further evaluated with an MRI which showed multiple targetoid lesions throughout the liver. There was a concern for malignancy as well. GI was consulted for the same. Dr Hernández was considering liver biopsy vs f/u imaging, but he deferred it to ID. ALP level increased from 120->198 in about 11 days. Hep B AB was positive however Ag was negative. ASO test was positive (355). Interval Events: HCV Ab positive. Teichoic acid test was pending. AFP pending. ID saw the patient and they recommend another TTE in 4-6 weeks. MRI spine showed degenerative changes along with hemangioma, however did not show any evidence if infection or metastatic disease involving the spine. He reports no complaints. OBJECTIVE Medications: IV Infusions: Scheduled: - vancomycin, 1.25 g, q 8 H - lidocaine, 1 Patch, DAILY And - lidocaine patch - REMOVE, , AT BEDTIME And - lidocaine - VERIFY PATCH, , q 8 H - ciprofloxacin, 400 mg, q 12 H - methadone, 10 mg, BID - sodium chloride 0.9 % (flush), 10 mL, q 12 H - senna-docusate, 2 tablet, BID - polyethylene glycol 3350, 17 g, DAILY - nicotine, 1 Patch, DAILY And - nicotine -- REMOVE patch, , DAILY And - nicotine - verify patch, , q 8 H - vancomycin dosing and monitoring per pharmacy, , As Directed - enoxaparin, 40 mg, DAILY PRN: - acetaminophen, 650 mg, q 6 H PRN - iv contrast, , DIRECTED PRN - sodium chloride 0.9 % (flush), 20 mL, PRN - bisacodyl, 10 mg, DAILY PRN - prochlorperazine, 10 mg, q 6 H PRN - ondansetron, 4 mg, q 6 H PRN Or - ondansetron (PF), 4 mg, q 6 H PRN - hydrOXYzine HCl, 50 mg, q 6 H PRN Vital Signs: BP 109/74 Pulse 71 Temp (Src) 97.7 (Oral) Resp 18 Ht 5' 9 (1.75m) Wt 169 lb 1.6 oz (76.7kg) SpO2 99% BMI 24.96 kg/(m2). Patient Vitals for the past 24 hrs: Pulse BP 07/30/20 1841 71 109/74 Physical Exam Constitutional: No distress. Eyes: No scleral icterus. Cardiovascular: Normal rate, regular rhythm and normal heart sounds. Pulmonary/Chest: Effort normal and breath sounds normal. No respiratory distress. Abdominal: Soft. There is no abdominal tenderness. Musculoskeletal: General: No edema. Neurological: He is alert. Lines, Drains, and Airways Line Central Line Single Lumen 07/23/20 1447 Peripherally Inserted (PICC) Right Arm 4.0 Bangladeshi 7 days Reviewed lines and needs to be continued: REASONS: Intravenous antibiotics Labs: CBC: Recent Labs 07/31/2044507/30/20 0642 07/29/2012407/28/200 07/27/200 07/26/207 07/25/20 0558 WBC 12.86* 15.43* 16.01* 14.30* 17.40* 22.11* 21.51* HB 8.8* 8.5* 9.2* 9.0* 9.4* 9.7* 9.5* HCT 27.9* 27.1* 28.5* 28.7* 29.6* 29.8* 30.1* PLT 92* 139* 210 125* 167 156 225 MCV 83.3 83.6 81.7 83.4 82.9 81.0 83.6 RDWCV 15.0 14.9 14.7 14.6 14.2 14.5 14.2 COAG: Recent Labs 07/29/20124 INR 1.2 BMP: Recent Labs 07/31/204 07/30/20 0642 07/29/20 0125 07/28/20 0410 07/27/20 0410 07/26/20 0317 07/25/20 0558 GLUC 109* 113* 99 102* 91 92 100* NA 133* 130* 129* 132* 128* 127* 129* K 4.7 4.2 4.8 3.6* 4.1 4.0 4.2 CHLOR 96* 96* 96* 96* 91* 92* 93* CO2 28 26 24 27 29 28 28 ANION 9 8* 9 9 8* 7* 8* BUN 11 17 14 14 10 10 14 CREAT 0.79 0.87 0.91 0.86 0.77 0.83 0.78 CHEM: Recent Labs 07/31/20 0444 07/30/20 0642 07/29/20 0125 07/28/20 0410 07/27/20 0410 07/26/20 0317 07/25/20 0558 TPROT -- -- 8.4* -- -- -- -- CA 8.5 8.4* 8.6 8.7 8.6 8.6 8.5 HEPATIC: Recent Labs 07/29/20 0125 ALKPHOS 198* ALT 16 AST 38 TBILI 0.3 URINALYSIS:No results for input(s): PH, SPGR, UGLUC, UBILI, UKET, UHB, UPROT, UROBIL, UWBC, SSA in the last 168 hours. Invalid input(s): NITR CARDIAC: No results for input(s): CKTEST, CKMB, CKMBP in the last 168 hours.TROPONIN@:8,No results found for: BNP:8)@ Intake/Output Summary (Last 24 hours) at 07/31/2020 0703 Last data filed at 07/31/2020 0129 Gross per 24 hour Intake 1130 ml Output 1550 ml Net -420 ml Serum creatinine: 0.91 mg/dL 07/29/20 0125 Estimated creatinine clearance: 112.2 mL/min Standardized Care Interventions: Labs: Routine blood work indicated for tomorrow on account of: suspected infection Assessment/Plan Problem List Infective endocarditis Methamphetamine dependence (HCC) Cannabis dependence (HCC) Nicotine use disorder, F17.2 IVDU (intravenous drug user) Fever Leucocytosis Hepatitis C antibody positive in blood Hyponatremia Intrahepatic Lesions, Likely Abscesses vs Metastatic Disease - MRI Liver 07/27/2020 shows Multiple too numerous to count targetoid type lesions throughout the liver. Given patient's history, multiple hepatic abscesses are consideration. Metastatic disease is is not excluded. - MRI spine did not show evidence of any infectious or metastatic disease. - Likely related to his history of IVDU, and hepatitis C positivity. - Hep B Ab and Hep C Ab were positive however Hep B Ag was negative. Hep C PCR did not detect any RNA particles. Likely had a HCV infection in the past which has resolved. - Potentially could obtain lesion biopsy at a later date as some are superficial anteriorly. - GI were on board and they recommend OP follow up. ?Infective endocarditis - Blood cultures negative. Negative fungal cultures(till date, ordered on 07/20). - ID following, recommend continuing Vanc/Cipro until 09/05/2020. - PICC line in place. - Repeat TTE showed thickened TV, but no clear evidence of vegetation. - Will continue to monitor for worsening symptoms, fevers. ? Leukocytosis - WBC 12.86. - MRI concerning for innumerable liver lesions highly concerning for abscesses vs. Metastatic disease. - However MRI spine did not show any evidence of metastatic or infectious etiology. - Potential cause of leukocytosis is the liver lesion, as IE less likely now. Thrombocytopenia Platelet count dropped to 92 today. We have ordered an anti platelet factor 4 Ab and d/chacha the lovenox. Vancomycin may also be a cause of the drop in platelets. Will touch base with ID. ? Constipation? - On senna docusate and miralax. ? Hyponatremia (Euvolemic) - Will continue to monitor for symptoms and monitor daily Na level. - Likely 2/[address] chest negative for any suspicious lesions. . Anemia - Will continue to monitor daily. - Likely anemia of chronic disease. ? Nicotine dependence. - Continue nicotine patch. ? H/o opioid use - Pain management is on board, continue methadone taper. Plan is to discharge the patient today after discussing with ID and if they are okay with it. Medication and Non-Pharmacologic VTE Prophylaxis/Anticoagul ants 07/17/202044 pneumatic compression stockings ([place], [place]) 07/17/202044 activity - mobilize patient ([place]) VTE Prophylaxis: VTE prophylaxis appropriate GI Prophylaxis: Not indicated Telemetry: Not indicated Disposition: Extended care / halfway facility Code Status: Not on file Plan of care discussed with: Provider SIGNATURE: Fortunato Corcoran MD PATIENT NAME: Khanh De La Vega DATE: July 31, 2020 TIME: 7:03 AM Page 3737 Normal [facility] Renal Func 2000 Pnl SerPlon 07-31-2020 Albumin [Mass/Vol] 2.5 g/dL Low 3.9-4.9 [facility] Comment on above: Order Comment: Speci men Type: BLOOD SPECIMEN Performed By: #### V ANCRA #### [facility] CLIA [id number] [address] [place] [address] Anion gap [Moles/Vol] 9 mmol/L Normal 9-18 [facility] Comment on above: Order Comment: Speci men Type: BLOOD SPECIMEN Performed By: #### V ANCRA #### [facility] CLIA [id number] [address] [place] [address] Calcium [Mass/Vol] 8.5 mg/dL Normal 8.5-10.2 [facility] Comment on above: Order Comment: Speci men Type: BLOOD SPECIMEN Performed By: #### V ANCRA #### [facility] CLIA [id number] [address] [place] [address] Chloride [Moles/Vol] 96 mmol/L Low 97-105 [facility] Comment on above: Order Comment: Speci men Type: BLOOD SPECIMEN Performed By: #### V ANCRA #### [facility] CLIA [id number] [address] [place] [address] CO2 [Moles/Vol] 28 mmol/L Normal 22-30 [facility] Comment on above: Order Comment: Speci men Type: BLOOD SPECIMEN Performed By: #### V ANCRA #### [facility] CLIA [id number] [address] [place] [address] Creatinine [Mass/Vol] 0.79 mg/dL Normal 0.73-1.22 [facility] Comment on above: Order Comment: Speci men Type: BLOOD SPECIMEN Performed By: #### V ANCRA #### [facility] CLIA [id number] [address] [place] [address] GFR/1.73 sq M.predicted MDRD (S/P/Bld) [Vol rate/Area] mL/min/{1.73_m2} Normal [facility] Comment on above: Order Comment: Speci men Type: BLOOD SPECIMEN Result Comment: >60 eGFR (Estimated GFR) Units of measure: mL/min/1.73 meters squared eGFR is derived from the reexpressed MDRD Study equation using the following parameters: serum creatinine, age, gender and race. The creatinine assay has been calibrated to be traceable to IDMS. An eGFR <60 mL/min/1.73m2 for >3 months is consistent with chronic kidney disease. Refer to KDOQI guidelines for clinical interpretation. In patients with unstable renal function, e.g. those with acute kidney injury, the eGFR may not accurately reflect actual GFR. Performed By: #### V ANCRA #### [facility] CLIA [id number] [address] [place] [address] Glucose [Mass/Vol] 109 mg/dL High 74-99 [facility] Comment on above: Order Comment: Speci men Type: BLOOD SPECIMEN Result Comment: The [place] Diabetes Association (ADA) provides guidance for cutoff values for fasting glucose and random glucose. The ADA defines fasting as no caloric intake for at least 8 hours. Fasting plasma glucose results between 100 to 125 mg/dL indicate increased risk for diabetes (prediabetes). Fasting plasma glucose results greater than or equal to 126 mg/dL meet the criteria for diagnosis of diabetes. In the absence of unequivocal hyperglycemia, results should be confirmed by repeat testing. In a patient with classic symptoms of hyperglycemia or hyperglycemic crisis, random plasma glucose results greater than or equal to 200 mg/dL meet the criteria for diagnosis of diabetes. Reference: Standards of Medical Care in Diabetes 2016, [employer] Diabetes Association. Diabetes Care. 2016.39(Suppl 1). Performed By: #### V ANCRA #### [facility] CLIA [id number] [address] [place] [address] Phosphate [Mass/Vol] 4.6 mg/dL Normal 2.7-4.8 [facility] Comment on above: Order Comment: Speci men Type: BLOOD SPECIMEN Performed By: #### V ANCRA #### [facility] CLIA [id number] [address] [place] [address] Potassium [Moles/Vol] 4.7 mmol/L Normal 3.7-5.1 [facility] Comment on above: Order Comment: Speci men Type: BLOOD SPECIMEN Performed By: #### V ANCRA #### [facility] CLIA [id number] [address] [place] [address] Sodium [Moles/Vol] 133 mmol/L Low 136-144 [facility] Comment on above: Order Comment: Speci men Type: BLOOD SPECIMEN Performed By: #### V ANCRA #### [facility] CLIA [id number] [address] [place] [address] Urea nitrogen [Mass/Vol] 11 mg/dL Normal 9-24 [facility] Comment on above: Order Comment: Speci men Type: BLOOD SPECIMEN Performed By: #### V ANCRA #### [facility] CLIA [id number] [address] [place] [address] VANCOMYCINon 07-31-2020 Vancomycin [Mass/Vol] 20.5 ug/mL High 10.0-20.0 [facility] Comment on above: Order Comment: Speci men Type: BLOOD SPECIMEN Result Comment: Refe rence ranges and high/low indicator flags are provided as general guidelines only. The treating physician must determine appropriate target levels/dosing based on the specific clinical situation. 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 FALL SCREENING: Has the patient had 2 falls in the last year or 1 fall with injury or currently using an Ambulatory Assistive Device (Walker, Cane, Wheelchair, Crutches, etc.)? No PATIENT GENDER DATA: Male PATIENT RELEVANT IMPLANT DATA REVIEWED: Yes ALLERGIES: Reviewed and unchanged CONTRAST ALLERGY: NO. EXAM: MRI - CONTRAST TYPE: GROUP II PERIPHERAL IV DATA: Inpatient - refer to LDA documentation RADIOLOGY DEPARTMENT: MR; Exam(s) Completed: Spine: Cervical spine, Thoracic spine and Lumbar spine SIGNATURE: RT Katelyn PATIENT NAME: Khanh De La Vega DATE: July 30, 2020 TIME: 8:07 AM [facility] CASE MANAGEMon 07-30-2020 CASE MANAGEM HNO ID: [id number] Author: Octavia (Rn) INDY Bennett Service: Nursing Author Type: Registered Nurse Type: Care Mgt Progress Note Filed: 07/30/2020 2:21 PM Note Text: CARE MANAGEMENT PROGRESS NOTE SERVICE DATE: 07/30/2020 SERVICE TIME: 2:19 PM LOS: 13 days Auth obtained. Good x48 hours. House medicine resident notified. Awaiting GI recs. SIGNATURE: Octavia Bennett RN PATIENT NAME: Khanh De La Vega DATE: July 30, 2020 TIME: 2:19 PM PAGER/CONTACT #: [phone] [facility] CASE MANAGEM HNO ID: [id number] Author: Octavia Hair) INDY Bennett Service: Nursing Author Type: Registered Nurse Type: Care Mgt Progress Note Filed: 07/30/2020 8:45 AM Note Text: CARE MANAGEMENT PROGRESS NOTE SERVICE DATE: 07/30/2020 SERVICE TIME: 8:45 AM LOS: 13 days [facility] for [place]. Will continue to follow SIGNATURE: Octavia Bennett RN PATIENT NAME: Khanh De La Vega DATE: July 30, 2020 TIME: 8:45 AM PAGER/CONTACT #: [phone] [facility] CBC (hemogram) Bld Autoon Erythrocyte distribution width (RBC) [Ratio] 14.9 % Normal 11.5-15.0 [facility] Comment on above: Order Comment: Speci men Type: BLOOD SPECIMEN Performed By: #### 9 4500-6 #### [facility] CLIA [id number] [address] [place] [address] Hematocrit (Bld) [Volume fraction] 27.1 % Low 39.0-51.0 [facility] Comment on above: Order Comment: Speci men Type: BLOOD SPECIMEN Performed By: #### 9 4500-6 #### [facility] CLIA [id number] [address] [place] [address] Hemoglobin (Bld) [Mass/Vol] 8.5 g/dL Low 13.0-17.0 [facility] Comment on above: Order Comment: Speci men Type: BLOOD SPECIMEN Performed By: #### 9 4500-6 #### [facility] CLIA [id number] [address] [place] [address] MCH (RBC) [Entitic mass] 26.2 pg Normal 26.0-34.0 [facility] Comment on above: Order Comment: Speci men Type: BLOOD SPECIMEN Performed By: #### 9 4500-6 #### [facility] CLIA [id number] [address] [place] [address] MCHC (RBC) [Mass/Vol] 31.4 g/dL Normal 30.5-36.0 [facility] Comment on above: Order Comment: Speci men Type: BLOOD SPECIMEN Performed By: #### 9 4500-6 #### [facility] CLIA [id number] [address] [place] [address] MCV (RBC) [Entitic vol] 83.6 fL Normal 80.0-100.0 [facility] Comment on above: Order Comment: Speci men Type: BLOOD SPECIMEN Performed By: #### 9 4500-6 #### [facility] CLIA [id number] [address] [place] [address] Nucleated RBC (Bld) [#/Vol] 10*3/uL Normal <0.01 [facility] Comment on above: Order Comment: Speci men Type: BLOOD SPECIMEN Performed By: #### 9 4500-6 #### [facility] CLIA [id number] [address] [place] [address] Platelet mean volume (Bld) [Entitic vol] 10.2 fL Normal 9.0-12.7 [facility] Comment on above: Order Comment: Speci men Type: BLOOD SPECIMEN Performed By: #### 9 4500-6 #### [facility] CLIA [id number] [address] [place] [address] Platelets (Bld) [#/Vol] 139 10*3/uL Low 150-400 [facility] Comment on above: Order Comment: Speci men Type: BLOOD SPECIMEN Performed By: #### 9 4500-6 #### [facility] CLIA [id number] [address] [place] [address] RBC (Bld) [#/Vol] 3.24 10*6/uL Low 4.20-6.00 [facility] Comment on above: Order Comment: Speci men Type: BLOOD SPECIMEN Performed By: #### 9 4500-6 #### [facility] CLIA [id number] [address] [place] [address] WBC (Bld) [#/Vol] 15.43 10*3/uL High 3.70-11.00 [facility] Comment on above: Order Comment: Speci men Type: BLOOD SPECIMEN Performed By: #### 9 4500-6 #### [facility] CLIA [id number] [address] [place] [address] CONSULT PROGon 07-30-2020 CONSULT PROG HNO ID: [id number] Author: Toby Villatoro Service: Pharmacy Author Type: Pharmacist Type: Consult Progress Note Filed: 07/30/2020 8:37 AM Note Text: PHARMACY VANCOMYCIN DOSING NOTE Patient Name: Khanh De La Vega Admission Date: 07/17/2020 Date of Consult: 07/30/2020 Time of Consult: 8:26 AM Indication: Endocarditis Goal Range: 15-25 mcg/mL RECOMMENDATIONS/PLAN: Pharmacy consulted for vancomycin dosing for Khanh De La Vega, a 35 year old, male who is being treated with vancomycin for Endocarditis with planned therapy through 09/05/2020 1. Patient is currently ordered vancomycin 1.5g iv q8h. Today is day 13th of therapy. 2. The most recent vancomycin level was 25.7 mcg/mL drawn at 0642 on 07/30/2020. This is a 6.5 hour level on the 13th day of therapy. 3. Will decrease vancomycin to 1.25 g with a dosing interval of q8h 4. The next vancomycin level has been ordered for prior to 5th dose of new regimen (Completed) We will follow patient renal function, vancomycin levels and doses with you during the course of therapy. Additional recommendations will appear in follow up notes. If you have any questions, please contact Sabrina Villatoro PharmD at [phone]. Vancomycin level this am drawn as a 6.5 hour level extrapolates to a true trough of ~21-22. Will reduce dose as above to target level between 15 and 20. Can adjust vancomycin dose further if needed at that time. Renal function appears to be stable. Age: [age] year old Allergies: ALLERGIES Allergen Reactions - Penicillins Swelling - Sulfa (Sulfonamide * Swelling Last 3 Encounter Wt Readings: Date: Wt: 07/17/2020 76.7 kg (169 lb 1.6 oz) 11/23/2019 81.6 kg (180 lb) 02/25/2018 81.6 kg (180 lb) Last 1 Encounter Ht Readings: Date: Ht: 07/17/2020 175.3 cm (5' 9) Estimated Creatinine Clearance: 117.4 mL/min (based on SCr of 0.87 mg/dL). Temp (24hrs), Av.3 ?C (99.1 ?F), Min:36.9 ?C (98.4 ?F), Max:37.7 ?C (99.9 ?F) - Current Temp: 37.3 ?C (99.1 ?F) Labs BUN (mg/dL) Date Value 07/30/2020 17 07/29/2020 14 07/28/2020 14 02/10/2018 16 04/23/2017 8 04/21/2017 10 Creatinine (mg/dL) Date Value 07/30/2020 0.87 07/29/2020 0.91 07/28/2020 0.86 02/10/2018 0.92 04/23/2017 0.81 04/21/2017 0.88 WBC Date Value 07/30/2020 15.43 k/uL (H) 07/29/2020 16.01 k/uL (H) 07/28/2020 14.30 k/uL (H) 02/10/2018 10.24 thou/cmm (H) 04/23/2017 9.9 thou/cmm 04/21/2017 9.9 thou/cmm Vancomycin Levels: Vancomycin (ug/mL) Date/Time Value 07/30/2020 0642 25.7 (H) 07/27/2020 1530 22.9 (H) Toby Villatoro, PharmD Normal [facility] MRI CERVICAL SPINE WO/W IVCO Non 07-30-2020 MRI CERVICAL SPINE WO/W IVCON Final Report DATE OF EXAM: Jul 30 2020 8:30AM [facility] [id number] - MRI CERVICAL SPINE WO/W IVCON / PROCEDURE REASON: Back pain, cancer or infection suspected Physician Interpretation EXAMINATION: MRI CERVICAL SPINE WITHOUT AND WITH IV CONTRAST, MRI THORACIC SPINE WITHOUT AND WITH IV CONTRAST, MRI LUMBAR SPINE WITHOUT AND WITH IV CONTRAST CLINICAL HISTORY: Back pain, cancer or infection suspected. TECHNIQUE: Routine cervical, thoracic, and lumbosacral spine MR protocol without and with intravenous gadolinium. MQ: MRCTLWO_3 COMPARISON: MRI lumbar 07/27/2020. CT chest, abdomen, and pelvis 07/25/2020. RESULT: CERVICAL: Limitation: Examination is limited due to patient motion artifact, especially on the postcontrast images. Counting reference: Craniocervical junction. Anatomic Variants: None. Alignment: Minimal levoconvex curvature of the cervical spine that may be positional in nature. Craniocervical junction: Craniocervical junction is within normal limits. Cord: The cervical spinal cord is within normal limits of signal intensity and morphology. No abnormal contrast enhancement. Bone marrow signal/fracture: Small area of increased T2 signal C6 anterior inferior vertebral body to the right of midline which does demonstrate probable contrast enhancement but does not demonstrate definitive decreased T1 signal. No other abnormal bone marrow signal noted. No other abnormal contrast enhancement. No evidence of prior fracture. Cervical soft tissues: The paraspinal soft tissues are within normal limits. No prevertebral soft tissue swelling. C2-C3: Canal and foramina are patent. C3-C4: Canal and foramina are patent. C4-C5: Canal and foramina are patent. C5-C6: Canal and foramina are patent. C6-C7: Canal and foramina are patent. C7-T1: Canal and foramina are patent. THORACIC: Limitation: Examination is limited due to patient motion artifact. Counting reference: Lumbosacral junction. For the purposes of this report, L4-5 is considered the level of the iliac crest and assume there are 5 lumbar-type vertebrae. Anatomic variant: None. Alignment: Alignment is within normal limits. Cord: No definite abnormal signal or abnormal enhancement in the thoracic cord. Bone marrow signal/fracture: No evidence of pathologic marrow infiltration. No evidence of prior fracture. Small focus of increased T2 signal in the T3 vertebral body most likely representing a small hemangioma. No abnormal increased T2 signal or enhancement involving the thoracic intervertebral discs. Thoracic soft tissues: The paraspinal soft tissues are within normal limits. Canal and foramina: T7-T8 minimal right paracentral disc protrusion with minimal right anterior cord deformity but no significant central canal stenosis. T8-T9 minimal disc bulging without central canal stenosis. The thoracic canal and foramina are otherwise patent within the constraints of the study. LUMBAR: Limitation: Examination is limited due to patient motion artifact. Counting reference: Lumbosacral junction. For the purposes of this report, L4-5 is considered the level of the iliac crest and there are 5 lumbar-type vertebrae. Anatomic variant: Transitional S1 vertebral body. Alignment: Alignment is within normal limits. Bone marrow signal/fracture: There is mild increased T2 signal involving the L4 and L5 inferior endplates with associated contrast enhancement is felt to be most likely degenerative in nature. No abnormal increased T2 signal or enhancement involving the lumbar discs. No evidence of prior fracture. There is no mild loss of normal intervertebral disc signal and height at the L4-L5 and L5-S1 levels consistent with degenerative disc disease. Small benign hemangioma in the L2 vertebral body. Conus: The conus is within normal limits of signal intensity and morphology. Paraspinal soft tissues: Paraspinal soft tissues are within normal limits. T12-L1: Canal and foramina are patent. L1-L2: Canal and foramina are patent. L2-L3: Canal and foramina are patent. L3-L4: Canal and foramina are patent. L4-L5: Minimal diffuse disc bulging. Canal and foramina are patent. L5-S1: Mild diffuse disc bulging. Canal and foramina are patent. Sacrum and iliac wings: The visualized sacrum and iliac wings are within normal limits. The presacral soft tissues are normal in appearance. IMPRESSION: 1. Limited examination due to patient motion. 2. Degenerative-type bone marrow signal changes at the L4-L5 and L5-S1 levels. 3. Small hemangioma versus degenerative-type bone marrow signal changes involving the inferior C6 endplate. 4. T3 probable small benign hemangioma. 5. No definitive evidence of spinal discitis or osteomyelitis. No convincing evidence of osseous metastatic disease involving the spine. 6. T7-T8 small right paracentral disc protrusion with minimal anterior right cord deformity. No central canal stenosis. 7. Mild thoracic and lumbar degenerative disc bulging without central canal stenosis as detailed above. Cervical Anatomic Variant: None. Assume 7 cervical vertebrae with counting from the craniocervical junction. Anatomic Thoracic/Lumbar Variant: None. L4-5 is considered the level of the iliac crest and assume there are 5 lumbar-type vertebrae. Life Support Technician: MORGAN Transcribe Date/Time: Jul 30 2020 9:06A Dictated by : ALESIA LORA MD This examination was interpreted and the report reviewed and electronically signed by: ALESIA LORA MD on Jul 30 2020 9:46AM EST Normal [facility] MRI LUMBAR SPINE WO/W IVCONo n 07-30-2020 MRI LUMBAR SPINE WO/W IVCON Final Report DATE OF EXAM: Jul 30 2020 8:30AM [facility] 0304 - MRI LUMBAR SPINE WO/W IVCON / PROCEDURE REASON: Back pain, cancer or infection suspected Physician Interpretation EXAMINATION: MRI CERVICAL SPINE WITHOUT AND WITH IV CONTRAST, MRI THORACIC SPINE WITHOUT AND WITH IV CONTRAST, MRI LUMBAR SPINE WITHOUT AND WITH IV CONTRAST CLINICAL HISTORY: Back pain, cancer or infection suspected. TECHNIQUE: Routine cervical, thoracic, and lumbosacral spine MR protocol without and with intravenous gadolinium. MQ: MRCTLWO_3 COMPARISON: MRI lumbar 07/27/2020. CT chest, abdomen, and pelvis 07/25/2020. RESULT: CERVICAL: Limitation: Examination is limited due to patient motion artifact, especially on the postcontrast images. Counting reference: Craniocervical junction. Anatomic Variants: None. Alignment: Minimal levoconvex curvature of the cervical spine that may be positional in nature. Craniocervical junction: Craniocervical junction is within normal limits. Cord: The cervical spinal cord is within normal limits of signal intensity and morphology. No abnormal contrast enhancement. Bone marrow signal/fracture: Small area of increased T2 signal C6 anterior inferior vertebral body to the right of midline which does demonstrate probable contrast enhancement but does not demonstrate definitive decreased T1 signal. No other abnormal bone marrow signal noted. No other abnormal contrast enhancement. No evidence of prior fracture. Cervical soft tissues: The paraspinal soft tissues are within normal limits. No prevertebral soft tissue swelling. C2-C3: Canal and foramina are patent. C3-C4: Canal and foramina are patent. C4-C5: Canal and foramina are patent. C5-C6: Canal and foramina are patent. C6-C7: Canal and foramina are patent. C7-T1: Canal and foramina are patent. THORACIC: Limitation: Examination is limited due to patient motion artifact. Counting reference: Lumbosacral junction. For the purposes of this report, L4-5 is considered the level of the iliac crest and assume there are 5 lumbar-type vertebrae. Anatomic variant: None. Alignment: Alignment is within normal limits. Cord: No definite abnormal signal or abnormal enhancement in the thoracic cord. Bone marrow signal/fracture: No evidence of pathologic marrow infiltration. No evidence of prior fracture. Small focus of increased T2 signal in the T3 vertebral body most likely representing a small hemangioma. No abnormal increased T2 signal or enhancement involving the thoracic intervertebral discs. Thoracic soft tissues: The paraspinal soft tissues are within normal limits. Canal and foramina: T7-T8 minimal right paracentral disc protrusion with minimal right anterior cord deformity but no significant central canal stenosis. T8-T9 minimal disc bulging without central canal stenosis. The thoracic canal and foramina are otherwise patent within the constraints of the study. LUMBAR: Limitation: Examination is limited due to patient motion artifact. Counting reference: Lumbosacral junction. For the purposes of this report, L4-5 is considered the level of the iliac crest and there are 5 lumbar-type vertebrae. Anatomic variant: Transitional S1 vertebral body. Alignment: Alignment is within normal limits. Bone marrow signal/fracture: There is mild increased T2 signal involving the L4 and L5 inferior endplates with associated contrast enhancement is felt to be most likely degenerative in nature. No abnormal increased T2 signal or enhancement involving the lumbar discs. No evidence of prior fracture. There is no mild loss of normal intervertebral disc signal and height at the L4-L5 and L5-S1 levels consistent with degenerative disc disease. Small benign hemangioma in the L2 vertebral body. Conus: The conus is within normal limits of signal intensity and morphology. Paraspinal soft tissues: Paraspinal soft tissues are within normal limits. T12-L1: Canal and foramina are patent. L1-L2: Canal and foramina are patent. L2-L3: Canal and foramina are patent. L3-L4: Canal and foramina are patent. L4-L5: Minimal diffuse disc bulging. Canal and foramina are patent. L5-S1: Mild diffuse disc bulging. Canal and foramina are patent. Sacrum and iliac wings: The visualized sacrum and iliac wings are within normal limits. The presacral soft tissues are normal in appearance. IMPRESSION: 1. Limited examination due to patient motion. 2. Degenerative-type bone marrow signal changes at the L4-L5 and L5-S1 levels. 3. Small hemangioma versus degenerative-type bone marrow signal changes involving the inferior C6 endplate. 4. T3 probable small benign hemangioma. 5. No definitive evidence of spinal discitis or osteomyelitis. No convincing evidence of osseous metastatic disease involving the spine. 6. T7-T8 small right paracentral disc protrusion with minimal anterior right cord deformity. No central canal stenosis. 7. Mild thoracic and lumbar degenerative disc bulging without central canal stenosis as detailed above. Cervical Anatomic Variant: None. Assume 7 cervical vertebrae with counting from the craniocervical junction. Anatomic Thoracic/Lumbar Variant: None. L4-5 is considered the level of the iliac crest and assume there are 5 lumbar-type vertebrae. Life Support Technician: [facility] Transcribe Date/Time: Jul 30 2020 9:06A Dictated by : ALESIA LORA MD This examination was interpreted and the report reviewed and electronically signed by: ALESIA LORA MD on Jul 30 2020 9:46AM EST Normal [facility] MRI THORACIC SPINE WO/W IVCO Non 07-30-2020 MRI THORACIC SPINE WO/W IVCON Final Report DATE OF EXAM: Jul 30 2020 8:30AM [facility] 0326 - MRI THORACIC SPINE WO/W IVCON / PROCEDURE REASON: Back pain, cancer or infection suspected Physician Interpretation EXAMINATION: MRI CERVICAL SPINE WITHOUT AND WITH IV CONTRAST, MRI THORACIC SPINE WITHOUT AND WITH IV CONTRAST, MRI LUMBAR SPINE WITHOUT AND WITH IV CONTRAST CLINICAL HISTORY: Back pain, cancer or infection suspected. TECHNIQUE: Routine cervical, thoracic, and lumbosacral spine MR protocol without and with intravenous gadolinium. MQ: MRCTLWO_3 COMPARISON: MRI lumbar 07/27/2020. CT chest, abdomen, and pelvis 07/25/2020. RESULT: CERVICAL: Limitation: Examination is limited due to patient motion artifact, especially on the postcontrast images. Counting reference: Craniocervical junction. Anatomic Variants: None. Alignment: Minimal levoconvex curvature of the cervical spine that may be positional in nature. Craniocervical junction: Craniocervical junction is within normal limits. Cord: The cervical spinal cord is within normal limits of signal intensity and morphology. No abnormal contrast enhancement. Bone marrow signal/fracture: Small area of increased T2 signal C6 anterior inferior vertebral body to the right of midline which does demonstrate probable contrast enhancement but does not demonstrate definitive decreased T1 signal. No other abnormal bone marrow signal noted. No other abnormal contrast enhancement. No evidence of prior fracture. Cervical soft tissues: The paraspinal soft tissues are within normal limits. No prevertebral soft tissue swelling. C2-C3: Canal and foramina are patent. C3-C4: Canal and foramina are patent. C4-C5: Canal and foramina are patent. C5-C6: Canal and foramina are patent. C6-C7: Canal and foramina are patent. C7-T1: Canal and foramina are patent. THORACIC: Limitation: Examination is limited due to patient motion artifact. Counting reference: Lumbosacral junction. For the purposes of this report, L4-5 is considered the level of the iliac crest and assume there are 5 lumbar-type vertebrae. Anatomic variant: None. Alignment: Alignment is within normal limits. Cord: No definite abnormal signal or abnormal enhancement in the thoracic cord. Bone marrow signal/fracture: No evidence of pathologic marrow infiltration. No evidence of prior fracture. Small focus of increased T2 signal in the T3 vertebral body most likely representing a small hemangioma. No abnormal increased T2 signal or enhancement involving the thoracic intervertebral discs. Thoracic soft tissues: The paraspinal soft tissues are within normal limits. Canal and foramina: T7-T8 minimal right paracentral disc protrusion with minimal right anterior cord deformity but no significant central canal stenosis. T8-T9 minimal disc bulging without central canal stenosis. The thoracic canal and foramina are otherwise patent within the constraints of the study. LUMBAR: Limitation: Examination is limited due to patient motion artifact. Counting reference: Lumbosacral junction. For the purposes of this report, L4-5 is considered the level of the iliac crest and there are 5 lumbar-type vertebrae. Anatomic variant: Transitional S1 vertebral body. Alignment: Alignment is within normal limits. Bone marrow signal/fracture: There is mild increased T2 signal involving the L4 and L5 inferior endplates with associated contrast enhancement is felt to be most likely degenerative in nature. No abnormal increased T2 signal or enhancement involving the lumbar discs. No evidence of prior fracture. There is no mild loss of normal intervertebral disc signal and height at the L4-L5 and L5-S1 levels consistent with degenerative disc disease. Small benign hemangioma in the L2 vertebral body. Conus: The conus is within normal limits of signal intensity and morphology. Paraspinal soft tissues: Paraspinal soft tissues are within normal limits. T12-L1: Canal and foramina are patent. L1-L2: Canal and foramina are patent. L2-L3: Canal and foramina are patent. L3-L4: Canal and foramina are patent. L4-L5: Minimal diffuse disc bulging. Canal and foramina are patent. L5-S1: Mild diffuse disc bulging. Canal and foramina are patent. Sacrum and iliac wings: The visualized sacrum and iliac wings are within normal limits. The presacral soft tissues are normal in appearance. IMPRESSION: 1. Limited examination due to patient motion. 2. Degenerative-type bone marrow signal changes at the L4-L5 and L5-S1 levels. 3. Small hemangioma versus degenerative-type bone marrow signal changes involving the inferior C6 endplate. 4. T3 probable small benign hemangioma. 5. No definitive evidence of spinal discitis or osteomyelitis. No convincing evidence of osseous metastatic disease involving the spine. 6. T7-T8 small right paracentral disc protrusion with minimal anterior right cord deformity. No central canal stenosis. 7. Mild thoracic and lumbar degenerative disc bulging without central canal stenosis as detailed above. Cervical Anatomic Variant: None. Assume 7 cervical vertebrae with counting from the craniocervical junction. Anatomic Thoracic/Lumbar Variant: None. L4-5 is considered the level of the iliac crest and assume there are 5 lumbar-type vertebrae. Life Support Technician: [facility] Transcribe Date/Time: Jul 30 2020 9:06A Dictated by : ALESIA LORA MD This examination was interpreted and the report reviewed and electronically signed by: ALESIA LORA MD on Jul 30 2020 9:46AM EST Normal [facility] PLAN OF CAREon 07-30-2020 PLAN OF CARE HNO ID: [id number] Author: Juanita Desai (Pa) Service: Gastroenterology Author Type: Physician Product Transfer Pumper Type: Plan of Care Filed: 07/30/2020 3:31 PM Note Text: GI CONSULT PROGRESS NOTE SERVICE DATE: 07/30/2020 SERVICE TIME: 3:29 PM CONSULTING SERVICE: Gastroenterology GI following for liver lesions with history of hepatitis C. Final hep C/B labs pending. Will defer to ID team on whether liver lesion need biopsied while inpatient. If not, patient can follow up with GI as outpatient to follow up on hepatitis serologies and follow up imaging. No further workup or intervention planned per GI. Okay to discharge patient - at the discretion of primary team. Patient can follow up with Dr. Hernández as outpatient. SIGNATURE: Juanita Desai PA-C PATIENT NAME: Khanh De La Vega DATE: July 30, 2020 TIME: 3:28 PM PAGER/CONTACT #: [phone] [facility] PROGRESSon 07-30-2020 PROGRESS HNO ID: [id number] Author: Mac Morris Service: Infectious Disease Author Type: Physician Type: Progress Notes Filed: 07/30/2020 4:31 PM Note Text: INFECTIOUS DISEASE CONSULT PROGRESS NOTE SERVICE DATE: 07/30/2020 SERVICE TIME: 1530 Subjective INTERVAL HISTORY: States he is feeling okay. Denies fever, chills, myalgias, antibiotic complaints. No right upper quadrant pain. No shortness of breath. No significant cough no rapid heart rate states he understands he needs to go to a correction for Weeks of IV antibiotics as per the gyroscopic instrument tester positive?need of IV antibiotics;at form filled out by Dr. Bowens PERTINENT ROS: Positive? Low-grade fevers but curve is decreasing and less and less; long-term IV line for antibiotics; recently active IV drug user; Negative?nausea or vomiting or diarrhea; drug rash; PICC line problems; shortness of breath or cough; hemoptysis; tachypnea or tachycardia; acute joint changes; skin rash Current Facility-Administered Medications Medication Dose Route Frequency - vancomycin iv piggyback 1.25 g in D5W 250 mL (VANCOCIN) 1.25 g INTRAVENOUS q 8 H - acetaminophen 650 mg tab(s) (TYLENOL) 650 mg ORAL q 6 H PRN - lidocaine 4 % 1 Patch (SALONPAS) 1 Patch TRANSDERMAL DAILY And - lidocaine patch - REMOVE OTHER AT BEDTIME And - lidocaine - VERIFY PATCH OTHER q 8 H - iv contrast (radiology procedure) INTRAVENOUS DIRECTED PRN - ciprofloxacin iv piggyback 400 mg in D5W 200 mL (CIPRO) 400 mg INTRAVENOUS q 12 H - iv contrast (radiology procedure) INTRAVENOUS DIRECTED PRN - methadone 10 mg tab(s) (DOLOPHINE) 10 mg ORAL BID - sodium chloride 0.9 % (flush) 10 mL (BD POSIFLUSH) 10 mL INTRAVENOUS q 12 H - sodium chloride 0.9 % (flush) 20 mL (BD POSIFLUSH) 20 mL INTRAVENOUS PRN - bisacodyl 10 mg suppository (DULCOLAX) 10 mg RECTAL DAILY PRN - prochlorperazine 10 mg tab(s) (COMPAZINE) 10 mg ORAL q 6 H PRN - senna-docusate 8.6-50 mg 2 tablet (SENNA-S) 2 tablet ORAL BID - polyethylene glycol 3350 17 g packet (MIRALAX, GLYCOLAX) 17 g ORAL DAILY - nicotine 14 mg/24 hr 1 Patch (NICODERM) 1 Patch TRANSDERMAL DAILY And - nicotine -- REMOVE patch OTHER DAILY And - nicotine - verify patch OTHER q 8 H - vancomycin dosing and monitoring per pharmacy OTHER As Directed - enoxaparin 40 mg injection (LOVENOX) 40 mg SUBCUTANEOUS DAILY - ondansetron 4 mg tab(s) (ZOFRAN) 4 mg ORAL q 6 H PRN Or - ondansetron (PF) 4 mg injection (ZOFRAN) 4 mg INTRAVENOUS q 6 H PRN - hydrOXYzine HCl 50 mg tab(s) (ATARAX) 50 mg ORAL q 6 H PRN Day #5-1/2 Cipro but it is day #12-1/2 gram-negative therapy- Day #13 vancomycin Objective PHYSICAL EXAM: Vital Signs: BP 103/60 Pulse 82 Temp 37.3 ?C (99.1 ?F) (Oral) Resp 18 Ht 175.3 cm (5' 9) Wt 76.7 kg (169 lb 1.6 oz) SpO2 95% BMI 24.97 kg/m? Temp last 24 hours: Temp (24hrs), Av.3 ?C (99.1 ?F), Min:36.9 ?C (98.4 ?F), Max:37.7 ?C (99.9 ?F) More afebrile than low-grade fever; VSS; appropriately conversant; no distress HEENT unremarkable externally Mouth without thrush but some poor dentition Neck is supple Heart regular without murmur Lungs clear Abdomen protuberant but soft, nontender, no HSM Joints without acute change Skin without drug rash Neurologically no gross motor deficits in the cranial nerves or extremities DATA: Diagnostic Tests Reviewed for Today's Visit: Lab Results Component Value Date WBC 15.43 (H) 07/30/2020 WBC 16.01 (H) 07/29/2020 WBC 14.30 (H) 07/28/2020 WBC 17.40 (H) 07/27/2020 WBC 22.11 (H) 07/26/2020 WBC 21.51 (H) 07/25/2020 Creatinine Date Value Ref Range Status 07/30/2020 0.87 0.73 - 1.22 mg/dL Final 07/29/2020 0.91 0.73 - 1.22 mg/dL Final 07/28/2020 0.86 0.73 - 1.22 mg/dL Final 07/27/2020 0.77 0.73 - 1.22 mg/dL Final 02/10/2018 0.92 0.67 - 1.17 mg/dL Final 04/23/2017 0.81 0.67 - 1.17 mg/dL Final 04/21/2017 0.88 0.67 - 1.17 mg/dL Final 04/17/2014 0.83 0.67 - 1.17 mg/dL Final Estimated Creatinine Clearance: 117.4 mL/min (based on SCr of 0.87 mg/dL). MRI with multiple spots consistent with multiple small hepatic abscesses cannot rule out mets MRI-Whole spine without changes of infection As per Drs. Bowens and Chan, stop date of vancomycin and Cipro are September 05. Needs a repeat TTE probably 4 to [address] If discharged soon, follow-up with Dr. Bowens in our infectious disease office SIGNATURE: Mac Morris MD PATIENT NAME: Khanh De La Vega DATE: July 30, 2020 TIME: 4:25 PM PAGER/CONTACT #: [phone] [facility] PROGRESS HNO ID: [id number] Author: Fortunato Corcoran Service: Hospital Medicine Author Type: Resident Type: Progress Notes Filed: 07/30/2020 12:53 PM Note Text: Attestation signed by Dimas Alicia at 07/30/2020 5:30 PM Attending Note I personally saw and examined the patient on July 30, 2020. I reviewed the resident's note. I agree with the resident's assessment and plan unless otherwise noted. Signature: Dimas Alicia MD Date: 07/30/2020 Time: 5:30 PM Pager: [phone] HOUSE MEDICINE SERVICE PROGRESS NOTE SERVICE DATE: July 30, 2020 NIGHT AND WEEKEND COVERAGE: From 6 AM to 5 PM: You may reach the House Medicine sales and marketing intern currently assigned to this patient by finding their pager number on the treatment team (they will be assigned as the sales and marketing intern or resident). It is the last four [phone] in the phone number beginning with ([phone]). We encourage the use of [employer] Secure Chat. SUBJECTIVE HPI: Patient is a 35 yr male who is a chronic IVDU since 2009 and Hep C positive ( antibody positive on 11/23/19), presented to the [facility] for chronic fatigue on 07/13/20. He was found to have opiate withdrawal symptoms and had spiking fevers maximum temp being 102 F, raised WBC and negative blood cultures (07/15). His urine tox was positive for opiates, amphetamines and opiates. 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 ID consultation was done and his zosyn was switched to cefepime. He was treated for b with buprenorphine which was tapered. ? He was found to be negative for HIV and Hep B and his WBCs started trending down, however he still spiked fevers. Repeat blood cultures on 07/15 were sent which is still pending. He was transferred to [facility] for CT surgery evaluation for possible surgery for his IE. ? At the time of admission, patient was febrile 102 F. Complained of global pain. He admitted to intermittent abdominal discomfort and said he had been constipated for 3 days. He denied any chest pain, palpitations, lightheadedness, or bilateral LL swelling. He said his last IVDU was on Thursday morning (07/13/20) before he presented to the hospital. He denied the use of leg veins for the same. ? CTS saw the patient and recommend a GRICELDA for further evaluation. However given his return to covid positive status, that may be delayed. ID was also following the patient and they recommended starting him on vanc plus cefepime. His blood Cxs from here as well as [facility] have been negative. ? Of note, he was covid positive on 06/29/20 however he was tested negative during his hospital admission in [place]. However his COVID result again came positive and he moved to isolation laird. Patient was initially supposed to get a GRICELDA done however it got delayed due to his COVID status. He underwent a CAT A/P for finding A source of infection and that was significant for a lesion n the right hepatic dome. It was further evaluated with an MRI which showed multiple targetoid lesions throughout the liver. There was a concern for malignancy as well. GI was consulted for the same. Dr Hernández was considering liver biopsy vs f/u imaging, but he deferred it to ID. Interval Events: ALP level increased from 120->198 in about 11 days. Hep B AB was positive however Ag was negative. ASO test was positive (355). HCV Ab pending. Teichoic acid test was pending. AFP pending. Patient did not report any perceived fever overnight neither documented fever. He reports improvement in his shoulder pain. OBJECTIVE Medications: IV Infusions: Scheduled: - lidocaine, 1 Patch, DAILY And - lidocaine patch - REMOVE, , AT BEDTIME And - lidocaine - VERIFY PATCH, , q 8 H - ciprofloxacin, 400 mg, q 12 H - methadone, 10 mg, BID - sodium chloride 0.9 % (flush), 10 mL, q 12 H - vancomycin, 1.5 g, q 8 H - senna-docusate, 2 tablet, BID - polyethylene glycol 3350, 17 g, DAILY - nicotine, 1 Patch, DAILY And - nicotine -- REMOVE patch, , DAILY And - nicotine - verify patch, , q 8 H - vancomycin dosing and monitoring per pharmacy, , As Directed - enoxaparin, 40 mg, DAILY PRN: - iv contrast, , DIRECTED PRN - iv contrast, , DIRECTED PRN - sodium chloride 0.9 % (flush), 20 mL, PRN - bisacodyl, 10 mg, DAILY PRN - prochlorperazine, 10 mg, q 6 H PRN - ondansetron, 4 mg, q 6 H PRN Or - ondansetron (PF), 4 mg, q 6 H PRN - acetaminophen, 650 mg, q 6 H PRN - hydrOXYzine HCl, 50 mg, q 6 H PRN Vital Signs: BP 113/75 Pulse 81 Temp (Src) 98.4 (Oral) Resp 20 Ht 5' 9 (1.75m) Wt 169 lb 1.6 oz (76.7kg) SpO2 98% BMI 24.96 kg/(m2). O2 Therapy: Room Air Patient Vitals for the past 24 hrs: Pulse BP 07/30/20 0700 82 103/60 07/29/20 1931 81 113/75 Physical Exam Constitutional: No distress. Eyes: EOM are normal. No scleral icterus. Cardiovascular: Normal rate, regular rhythm and normal heart sounds. No murmur heard. Pulmonary/Chest: Effort normal and breath sounds normal. No respiratory distress. He has no wheezes. Abdominal: Soft. There is no abdominal tenderness. Musculoskeletal: General: No edema. Lymphadenopathy: He has no cervical adenopathy. Neurological: He is alert. Lines, Drains, and Airways Line Central Line Single Lumen 07/23/20 1447 Peripherally Inserted (PICC) Right Arm 4.0 Bangladeshi 6 days Reviewed lines and needs to be continued: REASONS: Intravenous antibiotics Labs: CBC: Recent Labs 07/30/20 0642 07/29/20 0125 07/28/20 0410 07/27/20 0410 07/26/20 0317 07/25/20 0558 07/24/20 0451 WBC 15.43* 16.01* 14.30* 17.40* 22.11* 21.51* 25.54* HB 8.5* 9.2* 9.0* 9.4* 9.7* 9.5* 10.0* HCT 27.1* 28.5* 28.7* 29.6* 29.8* 30.1* 30.1* PLT 139* 210 125* 167 156 225 227 MCV 83.6 81.7 83.4 82.9 81.0 83.6 82.9 RDWCV 14.9 14.7 14.6 14.2 14.5 14.2 14.3 COAG: Recent Labs 07/29/20124 INR 1.2 BMP: Recent Labs 07/30/20 0642 07/29/2012407/28/200 07/27/200 07/26/207 07/25/20 0558 07/24/20 0451 GLUC 113* 99 102* 91 92 100* 100* NA 130* 129* 132* 128* 127* 129* 132* K 4.2 4.8 3.6* 4.1 4.0 4.2 4.6 CHLOR 96* 96* 96* 91* 92* 93* 94* CO2 26 24 27 29 28 28 28 ANION 8* 9 9 8* 7* 8* 10 BUN 17 14 14 10 10 14 18 CREAT 0.87 0.91 0.86 0.77 0.83 0.78 0.85 CHEM: Recent Labs 07/29/2012407/28/200 07/27/200 07/26/2031607/25/20 0558 07/24/20 0451 TPROT 8.4* -- -- -- -- -- CA 8.6 8.7 8.6 8.6 8.5 8.6 HEPATIC: Recent Labs 07/29/20124 ALKPHOS 198* ALT 16 AST 38 TBILI 0.3 URINALYSIS:No results for input(s): PH, SPGR, UGLUC, UBILI, UKET, UHB, UPROT, UROBIL, UWBC, SSA in the last 168 hours. Invalid input(s): NITR CARDIAC: No results for input(s): CKTEST, CKMB, CKMBP in the last 168 hours.TROPONIN@:8,No results found for: BNP:8)@ No intake or output data in the 24 hours ending 07/30/20 0709 Serum creatinine: 0.91 mg/dL 11/01/20 0125 Estimated creatinine clearance: 112.2 mL/min Standardized Care Interventions: Labs: Routine blood work indicated for tomorrow on account of: suspected infection Assessment/Plan Problem List Infective endocarditis Methamphetamine dependence (HCC) Cannabis dependence (HCC) Nicotine use disorder, F17.2 IVDU (intravenous drug user) Fever Leucocytosis Hepatitis C antibody positive in blood Hyponatremia Intrahepatic Lesions, Likely Abscesses vs Metastatic Disease - MRI Liver 07/27/2020 shows Multiple too numerous to count targetoid type lesions throughout the liver. Given patient's history, multiple hepatic abscesses are consideration. Metastatic disease is is not excluded. - Likely related to his history of IVDU, and ?hepatitis C positivity. - No records of Hep C testing [facility] or [facility], reordered Hep C panel/Hep B Ag was neagtive, however Ab was positive, likely immune. - Potentially could obtain lesion biopsy as some are superficial anteriorly. - GI on board. - Will follow up on the labs as mentioned in the interval events. ?Infective endocarditis - Blood cultures negative. Negative fungal cultures(till date, ordered on 07/20). - ID following, recommend continuing Vanc/Cipro until 09/05/2020. - PICC line in place. - Repeat TTE showed thickened TV, but no clear evidence of vegetation. - Will continue to monitor for worsening symptoms, fevers. ? Leukocytosis - WBC 15. - MRI concerning for innumerable liver lesions highly concerning for abscesses vs. Metastatic disease. - Potential cause of leukocytosis, as IE less likely now. ? Constipation? - On senna docusate and miralax. ? Hyponatremia (Euvolemic) - Will continue to monitor for symptoms and monitor daily Na level. - Likely 2/[address] chest negative for any suspicious lesions. . Anemia - Will continue to monitor daily. - Likely anemia of chronic disease. ? Nicotine dependence. - Continue nicotine patch. ? H/o opioid use - Back and sometimes shoulder pain, likely 2/2 opioid withdrawal. - Pain management is on board, continue methadone taper. Medication and Non-Pharmacologic VTE Prophylaxis/Anticoagul ants Anticoagulant AND Antiplatelet Medications (From admission, onward) Start Dose Route Frequency Ordered Stop 07/17/202099 enoxaparin 40 mg injection (LOVENOX) (Medical Risk Categories) 40 mg SUBCUTANEOUS DAILY 07/17/202044 -- 07/17/202044 pneumatic compression stockings (ct,mi) 07/17/202044 activity - mobilize patient ([place], [place]) VTE Prophylaxis: VTE prophylaxis appropriate GI Prophylaxis: Not indicated Telemetry: Not indicated Disposition: Extended care / halfway facility Code Status: Not on file Plan of care discussed with: Provider SIGNATURE: Fortunato Corcoran MD PATIENT NAME: Khanh De La Vega DATE: July 30, 2020 TIME: 7:10 AM Page 0815 Normal [facility] Renal Func 2000 Pnl SerPlon 07-30-2020 Albumin [Mass/Vol] 2.4 g/dL Low 3.9-4.9 [facility] Comment on above: Order Comment: Speci men Type: BLOOD SPECIMEN Performed By: #### 9 4500-6 #### [facility] CLIA [id number] [address] [place] [address] Anion gap [Moles/Vol] 8 mmol/L Low 9-18 [facility] Comment on above: Order Comment: Speci men Type: BLOOD SPECIMEN Performed By: #### 9 4500-6 #### [facility] CLIA [id number] [address] [place] [address] Calcium [Mass/Vol] 8.4 mg/dL Low 8.5-10.2 [facility] Comment on above: Order Comment: Speci men Type: BLOOD SPECIMEN Performed By: #### 9 4500-6 #### [facility] CLIA [id number] [address] [place] [address] Chloride [Moles/Vol] 96 mmol/L Low 97-105 [facility] Comment on above: Order Comment: Speci men Type: BLOOD SPECIMEN Performed By: #### 9 4500-6 #### [facility] CLIA [id number] [address] [place] [address] CO2 [Moles/Vol] 26 mmol/L Normal 22-30 [facility] Comment on above: Order Comment: Speci men Type: BLOOD SPECIMEN Performed By: #### 9 4500-6 #### [facility] CLIA [id number] [address] [place] [address] Creatinine [Mass/Vol] 0.87 mg/dL Normal 0.73-1.22 [facility] Comment on above: Order Comment: Speci men Type: BLOOD SPECIMEN Performed By: #### 9 4500-6 #### [facility] CLIA [id number] [address] [place] [address] GFR/1.73 sq M.predicted MDRD (S/P/Bld) [Vol rate/Area] mL/min/{1.73_m2} Normal [facility] Comment on above: Order Comment: Speci men Type: BLOOD SPECIMEN Result Comment: >60 eGFR (Estimated GFR) Units of measure: mL/min/1.73 meters squared eGFR is derived from the reexpressed MDRD Study equation using the following parameters: serum creatinine, age, gender and race. The creatinine assay has been calibrated to be traceable to IDMS. An eGFR <60 mL/min/1.73m2 for >3 months is consistent with chronic kidney disease. Refer to KDOQI guidelines for clinical interpretation. In patients with unstable renal function, e.g. those with acute kidney injury, the eGFR may not accurately reflect actual GFR. Performed By: #### 9 4500-6 #### [facility] CLIA [id number] [address] [place] [address] Glucose [Mass/Vol] 113 mg/dL High 74-99 [facility] Comment on above: Order Comment: Speci men Type: BLOOD SPECIMEN Result Comment: The [employer] Diabetes Association (ADA) provides guidance for cutoff values for fasting glucose and random glucose. The ADA defines fasting as no caloric intake for at least 8 hours. Fasting plasma glucose results between 100 to 125 mg/dL indicate increased risk for diabetes (prediabetes). Fasting plasma glucose results greater than or equal to 126 mg/dL meet the criteria for diagnosis of diabetes. In the absence of unequivocal hyperglycemia, results should be confirmed by repeat testing. In a patient with classic symptoms of hyperglycemia or hyperglycemic crisis, random plasma glucose results greater than or equal to 200 mg/dL meet the criteria for diagnosis of diabetes. Reference: Standards of Medical Care in Diabetes 2016, Indian Diabetes Association. Diabetes Care. 2016.39(Suppl 1). Performed By: #### 9 4500-6 #### [facility] CLIA [id number] [address] [place] [address] Phosphate [Mass/Vol] 5.2 mg/dL High 2.7-4.8 [facility] Comment on above: Order Comment: Speci men Type: BLOOD SPECIMEN Performed By: #### 9 4500-6 #### [facility] CLIA [id number] [address] [place] [address] Potassium [Moles/Vol] 4.2 mmol/L Normal 3.7-5.1 [facility] Comment on above: Order Comment: Speci men Type: BLOOD SPECIMEN Performed By: #### 9 4500-6 #### [facility] CLIA [id number] [address] [place] [address] Sodium [Moles/Vol] 130 mmol/L Low 136-144 [facility] Comment on above: Order Comment: Speci men Type: BLOOD SPECIMEN Performed By: #### 9 4500-6 #### [facility] CLIA [id number] [address] [place] [address] Urea nitrogen [Mass/Vol] 17 mg/dL Normal 9-24 [facility] Comment on above: Order Comment: Speci men Type: BLOOD SPECIMEN Performed By: #### 9 4500-6 #### [facility] CLIA [id number] [address] [place] [address] VANCOMYCINon 07-30-2020 Vancomycin [Mass/Vol] 25.7 ug/mL High 10.0-20.0 [facility] Comment on above: Order Comment: Speci men Type: BLOOD SPECIMEN Result Comment: Refe rence ranges and high/low indicator flags are provided as general guidelines only. The treating physician must determine appropriate target levels/dosing based on the specific clinical situation. Performed By: #### V ANCRA #### [facility] CLIA [id number] [address] [place] [address] ALPHA FETOPROTEIN BLon 07-29 AFP [Mass/Vol] ng/mL Normal <11.0 [facility] Comment on above: Order Comment: Speci men Type: BLOOD SPECIMEN Result Comment: AFP levels <11 ng/ml can be found in a variety of conditions, Hepatocellular Carcinoma and Non-seminomatous testicular cancer among others. Correlation with clinical picture and other test results including histopathology and radiology, where applicable, is recommended. Result rechecked. Performed By: #### 9 4500-6 #### [facility] CLIA [id number] [address] [place] [address] Bas Metab 2000 Pnl SerPlon 1 09-28-2019 Anion gap [Moles/Vol] 9 mmol/L Normal 9-18 [facility] Comment on above: Order Comment: Speci men Type: BLOOD SPECIMEN Performed By: #### 2 4321-2 #### [facility] CLIA [id number] [address] [place] [address] Calcium [Mass/Vol] 8.6 mg/dL Normal 8.5-10.2 [facility] Comment on above: Order Comment: Speci men Type: BLOOD SPECIMEN Performed By: #### 2 4321-2 #### [facility] CLIA [id number] [address] [place] [address] Chloride [Moles/Vol] 96 mmol/L Low 97-105 [facility] Comment on above: Order Comment: Speci men Type: BLOOD SPECIMEN Performed By: #### 2 4321-2 #### [facility] CLIA [id number] [address] [place] [address] CO2 [Moles/Vol] 24 mmol/L Normal 22-30 [facility] Comment on above: Order Comment: Speci men Type: BLOOD SPECIMEN Performed By: #### 2 4321-2 #### [facility] CLIA [id number] [address] [place] [address] Creatinine [Mass/Vol] 0.91 mg/dL Normal 0.73-1.22 [facility] Comment on above: Order Comment: Speci men Type: BLOOD SPECIMEN Performed By: #### 2 4321-2 #### [facility] CLIA [id number] [address] [place] [address] GFR/1.73 sq M.predicted MDRD (S/P/Bld) [Vol rate/Area] mL/min/{1.73_m2} Normal [facility] Comment on above: Order Comment: Speci men Type: BLOOD SPECIMEN Result Comment: >60 eGFR (Estimated GFR) Units of measure: mL/min/1.73 meters squared eGFR is derived from the reexpressed MDRD Study equation using the following parameters: serum creatinine, age, gender and race. The creatinine assay has been calibrated to be traceable to IDMS. An eGFR <60 mL/min/1.73m2 for >3 months is consistent with chronic kidney disease. Refer to KDOQI guidelines for clinical interpretation. In patients with unstable renal function, e.g. those with acute kidney injury, the eGFR may not accurately reflect actual GFR. Performed By: #### 2 4321-2 #### [facility] CLIA [id number] [address] [place] [address] Glucose [Mass/Vol] 99 mg/dL Normal 74-99 [facility] Comment on above: Order Comment: Speci [facility] Type: BLOOD SPECIMEN Result Comment: The [place] Diabetes Association (ADA) provides guidance for cutoff values for fasting glucose and random glucose. The ADA defines fasting as no caloric intake for at least 8 hours. Fasting plasma glucose results between 100 to 125 mg/dL indicate increased risk for diabetes (prediabetes). Fasting plasma glucose results greater than or equal to 126 mg/dL meet the criteria for diagnosis of diabetes. In the absence of unequivocal hyperglycemia, results should be confirmed by repeat testing. In a patient with classic symptoms of hyperglycemia or hyperglycemic crisis, random plasma glucose results greater than or equal to 200 mg/dL meet the criteria for diagnosis of diabetes. Reference: Standards of Medical Care in Diabetes 2016, [employer] Diabetes Association. Diabetes Care. 2016.39(Suppl 1). Performed By: #### 2 4321-2 #### [facility] CLIA [id number] [address] [place] [address] Potassium [Moles/Vol] 4.8 mmol/L Normal 3.7-5.1 [facility] Comment on above: [facility]: [facility]: BLOOD SPECIMEN Performed By: #### 2 4321-2 #### [facility] CLIA [id number] [address] [place] [address] Sodium [Moles/Vol] 129 mmol/L Low 136-144 [facility] Comment on above: Order Comment: Speci men Type: BLOOD SPECIMEN Performed By: #### 2 4321-2 #### [facility] CLIA [id number] [address] [place] [address] Urea nitrogen [Mass/Vol] 14 mg/dL Normal 9-24 [facility] Comment on above: Order Comment: Speci men Type: BLOOD SPECIMEN Performed By: #### 2 4321-2 #### [facility] CLIA [id number] [address] [place] [address] CBC (hemogram) Bld [employer]oon Erythrocyte distribution width (RBC) [Ratio] 14.7 % Normal 11.5-15.0 [facility] Comment on above: Order Comment: Speci men Type: BLOOD SPECIMEN Performed By: #### 2 4321-2 #### [facility] CLIA [id number] [address] [place] [address] Hematocrit (Bld) [Volume fraction] 28.5 % Low 39.0-51.0 [facility] Comment on above: Order Comment: Speci men Type: BLOOD SPECIMEN Performed By: #### 2 4321-2 #### [facility] CLIA [id number] [address] [place] [address] Hemoglobin (Bld) [Mass/Vol] 9.2 g/dL Low 13.0-17.0 [facility] Comment on above: Order Comment: Speci men Type: BLOOD SPECIMEN Performed By: #### 2 4321-2 #### [facility] CLIA [id number] [address] [place] [address] MCH (RBC) [Entitic mass] 26.4 pg Normal 26.0-34.0 [facility] Comment on above: Order Comment: Speci men Type: BLOOD SPECIMEN Performed By: #### 2 4321-2 #### [facility] CLIA [id number] [address] [place] [address] MCHC (RBC) [Mass/Vol] 32.3 g/dL Normal 30.5-36.0 [facility] Comment on above: Order Comment: Speci men Type: BLOOD SPECIMEN Performed By: #### 2 4321-2 #### [facility] CLIA [id number] [address] [place] [address] MCV (RBC) [Entitic vol] 81.7 fL Normal 80.0-100.0 [facility] Comment on above: Order Comment: Speci men Type: BLOOD SPECIMEN Performed By: #### 2 4321-2 #### [facility] CLIA [id number] 1 [place] [address] Nucleated RBC (Bld) [#/Vol] 10*3/uL Normal <0.01 [facility] Comment on above: Order Comment: Speci men Type: BLOOD SPECIMEN Performed By: #### 2 4321-2 #### [facility] CLIA [id number] 1 [place] [address] Platelet mean volume (Bld) [Entitic vol] 10.1 fL Normal 9.0-12.7 [facility] Comment on above: Order Comment: Speci men Type: BLOOD SPECIMEN Performed By: #### 2 4321-2 #### [facility] CLIA [id number] 1 [place] [address] Platelets (Bld) [#/Vol] 210 10*3/uL Normal 150-400 [facility] Comment on above: Order Comment: Speci men Type: BLOOD SPECIMEN Performed By: #### 2 4321-2 #### [facility] CLIA [id number] 1 [place] [address] RBC (Bld) [#/Vol] 3.49 10*6/uL Low 4.20-6.00 [facility] Comment on above: Order Comment: Speci men Type: BLOOD SPECIMEN Performed By: #### 2 4321-2 #### [facility] CLIA [id number] 1 [place] [address] WBC (Bld) [#/Vol] 16.01 10*3/uL High 3.70-11.00 [facility] Comment on above: Order Comment: Speci men Type: BLOOD SPECIMEN Performed By: #### 2 4321-2 #### [facility] CLIA [id number] [address] [place] [id number] CONSULT PROGon 07-29-2020 CONSULT PROG HNO ID: [id number] Author: Jayashree Madden Service: Gastroenterology Author Type: Nurse Practitioner Type: Consult Progress Note Filed: 07/29/2020 2:17 PM Note Text: GI SERVICE CONSULT PROGRESS NOTE SERVICE DATE: 07/29/2020 SERVICE TIME: 2:09 PM Subjective INTERVAL HPI: GI following for multiple hepatic lesions on MRI Patient sleeping bur wakens easily. He reports general body aches today. He denies any abdominal pain, no nausea or vomiting. He did have BM today. No fever today. Current Facility-Administered Medications Medication Dose Route Frequency - vancomycin dosing and monitoring per pharmacy OTHER As Directed - enoxaparin 40 mg injection (LOVENOX) 40 mg SUBCUTANEOUS DAILY - ondansetron 4 mg tab(s) (ZOFRAN) 4 mg ORAL q 6 H PRN Or - ondansetron (PF) 4 mg injection (ZOFRAN) 4 mg INTRAVENOUS q 6 H PRN - acetaminophen 650 mg tab(s) (TYLENOL) 650 mg ORAL q 6 H PRN - hydrOXYzine HCl 50 mg tab(s) (ATARAX) 50 mg ORAL q 6 H PRN - nicotine 14 mg/24 hr 1 Patch (NICODERM) 1 Patch TRANSDERMAL DAILY And - nicotine -- REMOVE patch OTHER DAILY And - nicotine - verify patch OTHER q 8 H - vancomycin iv piggyback 1.5 g in D5W 250 mL (VANCOCIN) 1.5 g INTRAVENOUS q 8 H - senna-docusate 8.6-50 mg 2 tablet (SENNA-S) 2 tablet ORAL BID - polyethylene glycol 3350 17 g packet (MIRALAX, GLYCOLAX) 17 g ORAL DAILY - methadone 10 mg tab(s) (DOLOPHINE) 10 mg ORAL BID - sodium chloride 0.9 % (flush) 10 mL (BD POSIFLUSH) 10 mL INTRAVENOUS q 12 H - sodium chloride 0.9 % (flush) 20 mL (BD POSIFLUSH) 20 mL INTRAVENOUS PRN - bisacodyl 10 mg suppository (DULCOLAX) 10 mg RECTAL DAILY PRN - prochlorperazine 10 mg tab(s) (COMPAZINE) 10 mg ORAL q 6 H PRN - ciprofloxacin iv piggyback 400 mg in D5W 200 mL (CIPRO) 400 mg INTRAVENOUS q 12 H - perflutren lipid microspheres 1.1 mg/mL 1.3 mL injection (DEFINITY) 1.3 mL INTRAVENOUS DIRECTED PRN - iv contrast (radiology procedure) INTRAVENOUS DIRECTED PRN - ketorolac 10 mg tab(s) (TORADOL) 10 mg ORAL q 6 H - lidocaine 4 % 1 Patch (SALONPAS) 1 Patch TRANSDERMAL DAILY And - [START ON 07/30/2020] lidocaine patch - REMOVE OTHER AT BEDTIME And - lidocaine - VERIFY PATCH OTHER q 8 H Objective PHYSICAL EXAM: Physical Exam Performed: GENERAL: Alert, no distress, cooperative LUNGS: Lungs clear to auscultation, Good diaphragmatic excursion CARDIAC: Normal S1 and S2; no rubs, murmurs, or gallops ABDOMEN: Abdomen soft, non-tender, BS normal, No masses or organomegaly The remainder of the physical exam is noncontributory. BP 99/68 Pulse 58 Temp (Src) 97.5 (Oral) Resp 19 Ht 5' 9 (1.75m) Wt 169 lb 1.6 oz (76.7kg) SpO2 96% BMI 24.96 kg/(m2). O2 Therapy: Room Air DATA: Diagnostic tests reviewed for today's visit: Most recent labs and imaging results. WBC Date Value 07/29/2020 16.01 k/uL (H) 02/10/2018 10.24 thou/cmm (H) RBC Date Value 07/29/2020 3.49 m/uL (L) 02/10/2018 4.70 mil/cmm Hemoglobin (g/dL) Date Value 07/29/2020 9.2 (L) 04/17/2014 15.1 HGB (g/dL) Date Value 02/10/2018 13.6 (L) Hematocrit (%) Date Value 07/29/2020 28.5 (L) 02/10/2018 40.9 MCV Date Value 07/29/2020 81.7 fL 02/10/2018 87.0 fl MCH (pg) Date Value 07/29/2020 26.4 02/10/2018 28.9 MCHC Date Value 07/29/2020 32.3 g/dL 02/10/2018 33.3 % RDW-CV (%) Date Value 07/29/2020 14.7 Platelet Count Date Value 07/29/2020 210 k/uL 02/10/2018 299 thou/cmm MPV Date Value 07/29/2020 10.1 fL 02/10/2018 10.4 fl Glucose (mg/dL) Date Value 07/29/2020 99 02/10/2018 98 BUN (mg/dL) Date Value 07/29/2020 14 02/10/2018 16 Creatinine (mg/dL) Date Value 07/29/2020 0.91 02/10/2018 0.92 Sodium Date Value 07/29/2020 129 mmol/L (L) 02/10/2018 138 mEq/L Potassium Date Value 07/29/2020 4.8 mmol/L 02/10/2018 3.4 mEq/L (L) Chloride Date Value 07/29/2020 96 mmol/L (L) 02/10/2018 110 mEq/L (H) CO2 Date Value 07/29/2020 24 mmol/L 02/10/2018 24 mEq/L Protein, Total (g/dL) Date Value 07/29/2020 8.4 (H) 04/23/2017 7.5 Albumin (g/dL) Date Value 04/23/2017 3.5 Calcium (mg/dL) Date Value 02/10/2018 8.8 Calcium, Total (mg/dL) Date Value 07/29/2020 8.6 Alkaline Phosphatase (U/L) Date Value 07/29/2020 198 (H) 04/23/2017 85 Bilirubin, Total (mg/dL) Date Value 07/29/2020 0.3 04/23/2017 0.4 AST (U/L) Date Value 07/29/2020 38 04/23/2017 26 ALT (U/L) Date Value 07/29/2020 16 04/23/2017 30 URINALYSIS Specific [place], Ur Date Value Ref Range Status 02/10/2018 1.028 1.005 - 1.030 Final Glucose, Urine Date Value Ref Range Status 02/10/2018 NEGATIVE Negative mg/dL Final Bilirubin, Urine Date Value Ref Range Status 02/10/2018 see below (A) Negative Final Comment: Detected (Unable to confirm). Ketones, Urine Date Value Ref Range Status 02/10/2018 TRACE (A) Negative mg/dL Final Protein, Urine Date Value Ref Range Status 02/10/2018 TRACE (A) Negative mg/dL Final Urobilinogen, Urine Date Value Ref Range Status 02/10/2018 1.0 0.0 - 1.0 EU/dL Final WBC, Urine Date Value Ref Range Status 02/10/2018 1.0 0.0 - 5.0 /hpf Final Impression/Recommendat ions Principal Problem: 1. Liver lesions - Suspect abscess with h/o IVDU and infective endocarditis. Liver lesions seen on CT abdomen and pelvis 0.7 cm right hepatic dome 07/25 and MRI liver as too numerous targetoid type lesions throughout the liver suspect abscess but can not rule out metastatic disease. - h/o IVD use and hepatitis C - MRI liver done and suspect liver lesions are abscesses vs less likely metastasis - LFT's normal besides elevated alk phos. INR normal. - AFP pending - hep B serologies and HCV RNA ordered per primary team and pending - ID following; on IV vanc and cipro - d/w Dr. Hernández consider liver lesion biopsy vs follow up imaging but will defer to ID - diet per primary team ? 2. Infective endocarditis - questionable. - blood cultures negative - Repeat TTE showing thickened TV but no clear vegetation - ID following - on IV vcan and cipro through 09/05/20 - monitor WBC's and vital signs D/w Dr. Hernández GI will follow SIGNATURE: Jayashree Madden APRN.CNP PATIENT NAME: Khanh De La Vega DATE: July 29, 2020 TIME: 2:09 PM PAGER: [phone] Normal [facility] HEPATIC FUNCTION PNLon 07-29 Albumin [Mass/Vol] 2.7 g/dL Low 3.9-4.9 [facility] Comment on above: Order Comment: Speci men Type: BLOOD SPECIMEN Performed By: #### 2 4321-2 #### [facility] CLIA [id number] 1 [place] [address] ALP [Catalytic activity/Vol] 198 U/L High 38-113 [facility] Comment on above: Order Comment: Speci men Type: BLOOD SPECIMEN Performed By: #### 2 4321-2 #### [facility] CLIA [id number] 1 [place] [address] ALT With P-5'-P [Catalytic activity/Vol] 16 U/L Normal 10-54 [facility] Comment on above: Order Comment: Speci men Type: BLOOD SPECIMEN Performed By: #### 2 4321-2 #### [facility] CLIA [id number] 1 [place] [address] AST With P-5'-P [Catalytic activity/Vol] 38 U/L Normal 14-40 [facility] Comment on above: Order Comment: Speci men Type: BLOOD SPECIMEN Performed By: #### 2 4321-2 #### [facility] CLIA [id number] [address] [place] [address] Bilirubin [Mass/Vol] 0.3 mg/dL Normal 0.2-1.3 [facility] Comment on above: Order Comment: Speci men Type: BLOOD SPECIMEN Performed By: #### 2 4321-2 #### [facility] CLIA [id number] [address] [place] [address] Bilirubin.conjugated [Mass/Vol] mg/dL Normal <0.2 [facility] Comment on above: Order Comment: Speci men Type: BLOOD SPECIMEN Performed By: #### 2 4321-2 #### [facility] CLIA [id number] [address] [place] [address] Protein [Mass/Vol] 8.4 g/dL High 6.3-8.0 [facility] Comment on above: Order Comment: Speci men Type: BLOOD SPECIMEN Performed By: #### 2 4321-2 #### [facility] CLIA [id number] [address] [place] [address] PROGRESSon 07-29-2020 PROGRESS HNO ID: [id number] Author: Marilyn Graham Service: Pain Management Author Type: Physician Type: Progress Notes Filed: 07/29/2020 12:29 PM Note Text: Name: KHANH DE LA VEGA Age: [age] year old PAIN MANAGEMENT: Back pain, TV endocarditis, IVDA; opiate dependent Pain Description: Patient feels better. Some back pain but overall improving. Denies abdominal pain Interval HPI: Afebrile. Room air 97%. WBC 16 07/28 seen by GI for abnormal liver MRI. Albumin 2.7 alkaline phosphatase 198 MRI liver lesion numerous targetoid type possibly abscess ID plan vancomycin and Cipro through 09/05. Will need repeat TTE 24H Comfort Meds: Tylenol 650 mg x 2 Methadone 10 mg twice daily x2 Antibiotic Therapy: Cipro, vancomycin through 09/05 Subjective HPI: 35-year-old male with history of active IVDA (heroin, fentanyl, methamphetamine-daily times years), hepatitis C presented to [facility] 07/13 with worsening fatigue, fevers. Patient was noted to have leukocytosis; urine drug screen positive for opiates and amphetamines. TTE demonstrated 0.5 x 1 cm tricuspid valve vegetation. Patient was started on IV vancomycin and Zosyn. He was briefly treated with Suboxone for opiate withdrawal. He was transferred to [facility] 07/17 for evaluation by CTS for possible surgery. Patient states he last used IV heroin and methamphetamine on 07/13. He was intolerant of Suboxone in the past due to GI upset. He had been on it for about 3 months 5 years ago. He has not been on methadone maintenance. He complains of back pain as well as some mild withdrawal symptoms. OARRS Review: 1 prescription [place] 5/325 #10 Current Facility-Administered Medications Medication Dose Route Frequency Provider Last Rate Last Admin - ciprofloxacin iv piggyback 400 mg in D5W 200 mL (CIPRO) 400 mg INTRAVENOUS q 12 H Stevo Posada Dumford III 200 mL/hr at 07/29/20 0929 400 mg at 07/29/20 0929 - perflutren lipid microspheres 1.1 mg/mL 1.3 mL injection (DEFINITY) 1.3 mL INTRAVENOUS DIRECTED PRN Stevo Posada Dumford III - iv contrast (radiology procedure) INTRAVENOUS DIRECTED PRN Stevo Crenshawford III - methadone 10 mg tab(s) (DOLOPHINE) 10 mg ORAL BID Heike (Res) MD Floyd 10 mg at 07/29/20 0926 - sodium chloride 0.9 % (flush) 10 mL (BD POSIFLUSH) 10 mL INTRAVENOUS q 12 H Heike (Res) MD Floyd 10 mL at 07/29/20 0900 - sodium chloride 0.9 % (flush) 20 mL (BD POSIFLUSH) 20 mL INTRAVENOUS PRN Heike (Rodríguez) MD Floyd - bisacodyl 10 mg suppository (DULCOLAX) 10 mg RECTAL DAILY PRN Heike (Res) MD Floyd 10 mg at 07/26/20 1000 - prochlorperazine 10 mg tab(s) (COMPAZINE) 10 mg ORAL q 6 H PRN Heike (Res) MD Floyd - vancomycin iv piggyback 1.5 g in D5W 250 mL (VANCOCIN) 1.5 g INTRAVENOUS q 8 H Heike (Res) MD Floyd 200 mL/hr at 07/29/20 0800 1.5 g at 07/29/20 0800 - senna-docusate 8.6-50 mg 2 tablet (SENNA-S) 2 tablet ORAL BID Heike (Rodríguez) MD Floyd 2 tablet at 07/27/202038 - polyethylene glycol 3350 17 g packet (MIRALAX, GLYCOLAX) 17 g ORAL DAILY Heike (Res) MD Floyd 17 g at 07/27/20 0925 - nicotine 14 mg/24 hr 1 Patch (NICODERM) 1 Patch TRANSDERMAL DAILY Heike (Res) MD Floyd 1 Patch at 07/29/20 0925 And - nicotine -- REMOVE patch OTHER DAILY Heike (Res) MD Floyd And - nicotine - verify patch OTHER q 8 H Heike (Res) MD Floyd - vancomycin dosing and monitoring per pharmacy OTHER As Directed Heike (Res) MD Floyd - enoxaparin 40 mg injection (LOVENOX) 40 mg SUBCUTANEOUS DAILY Heike (Res) MD Floyd 40 mg at 07/29/20 0925 - ondansetron 4 mg tab(s) (ZOFRAN) 4 mg ORAL q 6 H PRN Heike (Res) MD Floyd 4 mg at 07/24/20 0920 Or - ondansetron (PF) 4 mg injection (ZOFRAN) 4 mg INTRAVENOUS q 6 H PRN Heike (Res) MD Floyd 4 mg at 07/23/20 0813 - acetaminophen 650 mg tab(s) (TYLENOL) 650 mg ORAL q 6 H PRN Heike (Res) MD Floyd 650 mg at 07/29/20 0107 - hydrOXYzine HCl 50 mg tab(s) (ATARAX) 50 mg ORAL q 6 H PRN Heike (Res) MD Floyd 50 mg at 07/28/20 1050 No medications prior to admission. Social History Tobacco Use - Smoking status: Current Every Day Smoker Packs/day: 1.00 Types: Cigarettes - Smokeless tobacco: Never Used Substance Use Topics - Alcohol use: Yes Comment: socially - Drug use: Yes Types: Crystal Meth, Marijuana, Heroin, Amphetamines Comment: pt does inject No family history on file. PAST SURGICAL HISTORY Procedure Laterality Date - IR VASCULAR ACCESS TEAM PICC INSERTION RADIO 07/23/2020 - ORTHOPEDICS SURGERY HX Right pins placed in right hand ROS: All of the following reviewed and negative except as noted below: Significant for HPI GENERAL: no fever, chills, sweats, weight loss, fatigue, generalized weakness HEENT: no headache, vision changes, eye discomfort, hearing change, ear discomfort, sinus pain, nasal discharge or congestion, oral lesions, soreness, dental problem NECK: no adenopathy, discomfort, change in ROM CHEST: no shortness of breath, dyspnea on exertion, wheezing, cough, sputum production or chest pain HEART: no chest pain, palpitations, syncope ABDOMEN: no nausea, vomiting, constipation, diarrhea, abdominal pain : no dysuria, urgency, frequency, history of stones, incontinence NEURO: no confusion or alteration in consciousness, slurred speech, seizure, focal weakness EXTREMITIES: no new pain, edema, change in ROM HEME: no new adenopathy, bruises, petechiae PSYCH: no depression, anxiety, agitation PAIN PSYCHIATRIC EXAM: GENERAL: alert, oriented to person, place, time JUDGMENT AND INSIGHT: intact APPEARANCE: neatly groomed DEMEANOR: coooperative, not hostile, mistrustful, preoccupied, or demanding ACTIVITY: normal, not hyperactive or hypoactive, no tremors, tics EYE CONTACT: normal SPEECH: normal, rate, volume, articulation, coherence, spontaneity MOOD: normal, without overt sadness, grief, anxiety, appropriate to situation IDEATION: Deferred MEMORY: intact PHYSICAL EXAMINATION: GENERAL: well nourished and developed; no acute distress; alert and oriented x 3; intact judgement and insight HEENT: no evidence of trauma; cranial nerves intact; eyes clear EOMI; no hearing deficits apparent; nasal passages unremarkable; throat and mucous membranes clear NECK: supple without lymphadenopathy; no JVD; no thyromegaly CHEST: clear bilaterally to auscultation; normal chest movement; no rales or rhonchi HEART: regular rate and rhythm, 2/6 systolic murmur ABDOMEN: soft; nondistended; bowel sounds present; no hepatomegaly; no splenomegaly; no tenderness EXTREMITIES: no evidence of clubbing; no cyanosis; no deformity; no joint effusion; no edema NEURO: cranial nerves intact; no focal deficits; no confusion; no tremor; sensorium normal SKIN: no rash; no skin breakdown; no decubitus lesions HEME: no bruising; no adenopathy PSYCH: no evidence of depression; no anxiety; no agitation; no apparent hallucinations BP 99/68 Pulse (!) 58 Temp 36.4 ?C (97.5 ?F) (Oral) Resp 19 Ht 175.3 cm (5' 9) Wt 76.7 kg (169 lb 1.6 oz) SpO2 96% BMI 24.97 kg/m? BMI 24.97 kg/(m2) ABNORMAL/NEW FINDINGS: NONE RADIOLOGY/DIAGNOSTICS: LABORATORY: CBC: Recent Labs 07/29/20 0125 WBC 16.01* RBC 3.49* HB 9.2* HCT 28.5* PLT 210 MCV 81.7 MCH 26.4 MPV 10.1 CMP: Recent Labs 07/29/20 0125 NA 129* K 4.8 CHLOR 96* CO2 24 BUN 14 CREAT 0.91 GLUC 99 TPROT 8.4* CA 8.6 TBILI 0.3 ALKPHOS 198* ALT 16 AST 38 ANION 9 Heme: No results for input(s): RETICP, ABSRETIC, LD, YEIMY, FE, TIBC, TRANSFERSAT in the last 24 hours. 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 Repeat blood cultures pending. Repeat TTE later this week per ID Indeterminate hepatic lesion on CT; MRI demonstrated numerous targetoid type lesions possibly multiple hepatic abscesses. GI consult noted Continue IV vancomycin and Cipro through 09/05 Status post prior Suboxone taper at initial presentation at [facility]. Ongoing complaints of back pain-overall improving, Defer any work-up to primary service. Schedule methadone 10 mg twice tid with plans to taper over the next few weeks Methadone prescription with taper at discharge to SNF left in chart Our team will sign off; available as needed Marilyn Graham MD ADDENDUM: Portions of this note were copied so as to provide important historical information essential in contributing to medical decision making today. ADDENDUM: Even the portions of this note that were copied have been reviewed completely and edited so as to result in a note that most accurately reflects my complete evaluation today. Normal [facility] PROGRESS HNO ID: [id number] Author: Nohelia Angulo Service: Hospital Medicine Author Type: Resident Type: Progress Notes Filed: 07/29/2020 2:22 PM Note Text: Attestation signed by Julee Galvez at 07/29/2020 6:04 PM Discussed with team, chart reviewed. Pt seen and evaluated today at 1255, he was up and ambulating in his room, said 'my back pain is back since my meds where changed, I couldn't sleep all night, I feel like something is pinching in my spine'. Was sl tender to palpation of spine lower thoracic and upper lumbar. We discussed adding oral toradol for pain, along with lidocaine patch. We also discussed doing imaging, due to concern not only for back, but also abnormal MRI of abdomen. Disposition - as below, in addition, ordered MRI of spine, concern for not only infection (WBC count up again today), but also for ?neoplasm (see MRI of abdomen - abscesses versus neoplasm). Team needs to follow up with lab 07/30 re: Teichoic Acid ab test still pending - if this test is positive, pt could indeed have deep seated Staph infection (all blood cultures here and at [place] have been negative). Await final recommendations from both ID and GI, work up in progress. Attending Note I personally saw and examined the patient. I reviewed the resident's note. I agree with the resident's assessment and plan unless otherwise noted. Signature: Julee Galvez MD Date: 07/29/2020 Time: 6:04 PM HOUSE MEDICINE SERVICE PROGRESS NOTE SERVICE DATE: July 29, 2020 SERVICE TIME: 3:49 PM NIGHT AND WEEKEND COVERAGE: From 6 AM to 5 PM: You may reach the House Medicine sales and marketing intern currently assigned to this patient by finding their pager number on the treatment team (they will be assigned as the sales and marketing intern or resident). It is the last four digits in the phone number beginning with ([phone]). We encourage the use of [employer] Secure Chat. SUBJECTIVE HPI: 35 yr male who is a chronic IVDU since 2009 and Hep C positive ( antibody positive on 11/23/19), presented to the [facility] for chronic fatigue on 07/13/20. He was found to have opiate withdrawal symptoms and had spiking fevers maximum temp being 102 F, raised WBC and negative blood cultures (07/15). His urine tox was positive for opiates, amphetamines and opiates. 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 ID consultation was done and his zosyn was switched to cefepime. He was treated for opioid withdrawal with buprenorphine which was tapered. He was found to be negative for HIV and Hep B and his WBCs started trending down, however he still spiked fevers. Repeat blood cultures on 07/15 were sent which is still pending. He was transferred to [facility] for CT surgery evaluation for possible surgery for his IE. Interval Events: Pt is stable and c/o pain and soreness after his methadone dose was reduced yesterday and was requesting something for the pain. He denied any chest pain, shortness of breath, nausea/vomiting, abdominal pain this morning. Pt lubin sbeen afebrile since yesterday morning. OBJECTIVE Medications: IV Infusions: Scheduled: - ciprofloxacin, 400 mg, q 12 H - methadone, 10 mg, BID - sodium chloride 0.9 % (flush), 10 mL, q 12 H - vancomycin, 1.5 g, q 8 H - senna-docusate, 2 tablet, BID - polyethylene glycol 3350, 17 g, DAILY - nicotine, 1 Patch, DAILY And - nicotine -- REMOVE patch, , DAILY And - nicotine - verify patch, , q 8 H - vancomycin dosing and monitoring per pharmacy, , As Directed - enoxaparin, 40 mg, DAILY PRN: - perflutren lipid microspheres, 1.3 mL, DIRECTED PRN - iv contrast, , DIRECTED PRN - sodium chloride 0.9 % (flush), 20 mL, PRN - bisacodyl, 10 mg, DAILY PRN - prochlorperazine, 10 mg, q 6 H PRN - ondansetron, 4 mg, q 6 H PRN Or - ondansetron (PF), 4 mg, q 6 H PRN - acetaminophen, 650 mg, q 6 H PRN - hydrOXYzine HCl, 50 mg, q 6 H PRN Vital Signs: BP 102/65 Pulse 67 Temp (Src) 98.8 (Oral) Resp 20 Ht 5' 9 (1.75m) Wt 169 lb 1.6 oz (76.7kg) SpO2 95% BMI 24.96 kg/(m2). O2 Therapy: Room Air Physical Exam Performed: Due to the current efforts to prevent transmission of COVID-19 and also the need to preserve PPE for caregivers, a [id number] encounter with the patient was not performed. That being said, all relevant records and diagnostic tests were reviewed, including laboratory results and imaging. Please reference attending physician documentation for physical exam. Care will be coordinated with the team members. Lines, Drains, and Airways Line Central Line Single Lumen 07/23/20 1447 Peripherally Inserted (PICC) Right Arm 4.0 Bangl[place] 5 days Lab Results Component Value Date ALT 16 07/29/2020 ALT 30 04/23/2017 AST 38 07/29/2020 AST 26 04/23/2017 CREAT 0.91 07/29/2020 CREAT 0.86 07/28/2020 CREAT 0.92 02/10/2018 CREAT 0.81 04/23/2017 K 4.8 07/29/2020 K 3.4 02/10/2018 GLUC 99 07/29/2020 GLUC 98 02/10/2018 Assessment/Plan Problem List Infective endocarditis Methamphetamine dependence (HCC) Cannabis dependence (HCC) Nicotine use disorder, F17.2 IVDU (intravenous drug user) Fever Leucocytosis Hepatitis C antibody positive in blood Hyponatremia ?Infective endocarditis - Blood cultures negative x5 days. Negative fungal cultures. - ID following, recommend continuing Vanc/Cipro until 09/05/2020. - PICC line in place. - Repeat TTE showed thickened TV, but no clear evidence of vegetation. - No fever since yesterday - WBC increased to 16.01, monitor - Will continue to monitor for worsening symptoms, fevers. Intrahepatic Lesions, Likely Abscesses vs Metastatic Disease - MRI Liver 07/27/2020 shows Multiple too numerous to count targetoid type lesions throughout the liver. Given patient's history, multiple hepatic abscesses are consideration. Metastatic disease is is not excluded. - Likely related to his history of IVDU, and ?hepatitis C positivity. - [facility] Hep C and B panel. - Potentially could obtain lesion biopsy as some are superficial anteriorly. - Gi on board, f/u LFTs normal ALP elevated 198, INR normal - f/u on HCV, HBV, alpha fetoprotein Leukocytosis - WBC 17.4 -> 14.3 >>16.01, increased from yesterday. - MRI concerning for innumerable liver lesions highly concerning for abscesses vs. Metastatic disease. - Potential cause of leukocytosis, as IE less likely now. ? Constipation? - On senna docusate and miralax. ? Hyponatremia (Euvolemic) - Na 129 today <<132 - Will continue to monitor for symptoms and monitor daily Na level. - Likely 2/[address] chest negative for any suspicious lesions. . Anemia - Hgb 9.0 today, stable. - Likely anemia of chronic disease. Nicotine dependence. - Continue nicotine patch. ? H/o opioid use - Back and sometimes shoulder pain, likely 2/2 opioid withdrawal. - Pain management is on board, continue methadone taper. Medication and Non-Pharmacologic VTE Prophylaxis/Anticoagul ants Anticoagulant AND Antiplatelet Medications (From admission, onward) Start Dose Route Frequency Ordered Stop 10/20/20 2100 enoxaparin 40 mg injection (LOVENOX) (Medical Risk Categories) 40 mg SUBCUTANEOUS DAILY 07/17/202044 -- 07/17/202044 pneumatic compression stockings ([place]) 07/17/202044 activity - mobilize patient ([place]) VTE Prophylaxis: VTE prophylaxis appropriate GI Prophylaxis: Not indicated Telemetry: Not indicated Disposition: RNF Code Status: Not on file Plan of care discussed with: Provider, RN, Patient SIGNATURE: Nohelia Angulo MD PATIENT NAME: Khanh De La Vega DATE: 07/29/20 TIME: 2:20 PM Pager [phone] Normal [facility] PT Pnl PPPon 07-29-2020 INR Coag (PPP) [Relative time] 1.2 {INR} Normal 0.9-1.3 [facility] Comment on above: Order Comment: Razia hart Type: BLOOD SPECIMEN Result Comment: Celeste min K Antagonist (VKA) Therapeutic Range: INR 2 to 3 (Target INR of 2.5) Note: For patients treated with VKA drugs, such as warfarin, the [employer] 2012 Guideline recommends a therapeutic INR range of 2 to 3 (target INR of 2.5). This recommendation includes high-risk patients with antiphospholipid syndrome with previous arterial or venous thromboembolism, current-generation mechanical or bioprosthetic aortic heart valve replacement. Note: Patients with mechanical aortic valve replacement and additional risk factors for thromboembolic events (atrial fibrillation, previous thromboembolism, LV dysfunction, hypercoagulable conditions) or an older generation mechanical AVR (i.e., ball in-Cage) or any mechanical MVR should have a INR therapeutic range of 2.5 to 3.5 (target INR of 3). Crow VELÁZQUEZ, et al. Chest 2012, 141:7S-47S Wayne RA, et al. [facility] 2017, 70: 252-289 Performed By: #### 3 4528-0 ####[facility] [id number] [place] [address] PT Coag (PPP) [Time] 12.0 s Normal 9.7-13.0 [facility] Comment on above: Order Comment: Razia hart Type: BLOOD SPECIMEN Performed By: #### 3 4528-0 ####[facility] [id number] [place] [address] Phosphate SerPl-mCncon 07-29 Phosphate [Mass/Vol] 3.5 mg/dL Normal 2.7-4.8 [facility] Comment on above: Order Comment: Speci men Type: BLOOD SPECIMEN Performed By: #### 2 4321-2 #### [facility] CLIA [id number] [address] [place] [address] CBC (hemogram) Bld [employer]oon Erythrocyte distribution width (RBC) [Ratio] 14.6 % Normal 11.5-15.0 [facility] Comment on above: Order Comment: Speci men Type: BLOOD SPECIMEN Performed By: #### 5 8410-2 ####[facility] [id number] [place] [address] Hematocrit (Bld) [Volume fraction] 28.7 % Low 39.0-51.0 [facility] Comment on above: Order Comment: Speci men Type: BLOOD SPECIMEN Performed By: #### 5 8410-2 ####[facility] [id number] [place] [address] Hemoglobin (Bld) [Mass/Vol] 9.0 g/dL Low 13.0-17.0 [facility] Comment on above: Order Comment: Speci men Type: BLOOD SPECIMEN Performed By: #### 5 8410-2 ####[facility] [id number] [place] [address] MCH (RBC) [Entitic mass] 26.2 pg Normal 26.0-34.0 [facility] Comment on above: Order Comment: Speci men Type: BLOOD SPECIMEN Performed By: #### 5 8410-2 ####[facility] [id number] [place] [address] MCHC (RBC) [Mass/Vol] 31.4 g/dL Normal 30.5-36.0 [facility] Comment on above: Order Comment: Speci men Type: BLOOD SPECIMEN Performed By: #### 5 8410-2 ####[facility] [id number] [place] [address] MCV (RBC) [Entitic vol] 83.4 fL Normal 80.0-100.0 [facility] Comment on above: Order Comment: Speci men Type: BLOOD SPECIMEN Performed By: #### 5 8410-2 ####[facility] [id number] [place] [address] Nucleated RBC (Bld) [#/Vol] 10*3/uL Normal <0.01 [facility] Comment on above: Order Comment: Speci men Type: BLOOD SPECIMEN Performed By: #### 5 8410-2 ####[facility] [id number] [place] [address] Platelet mean volume (Bld) [Entitic vol] Normal [facility] Comment on above: Order Comment: Speci men Type: BLOOD SPECIMEN Result Comment: Unab le to Report. Performed By: #### 5 8410-2 ####[facility] [id number] [place] [address] Platelets (Bld) [#/Vol] 125 10*3/uL Low 150-400 [facility] Comment on above: Order Comment: Speci men Type: BLOOD SPECIMEN Result Comment: Plat elet count confirmed by manual review of peripheral blood smear Performed By: #### 5 8410-2 ####[facility] [id number] [place] [address] RBC (Bld) [#/Vol] 3.44 10*6/uL Low 4.20-6.00 [facility] Comment on above: Order Comment: Speci men Type: BLOOD SPECIMEN Performed By: #### 5 8410-2 ####[facility] [id number] [place] [address] WBC (Bld) [#/Vol] 14.30 10*3/uL High 3.70-11.00 [facility] Comment on above: Order Comment: Speci men Type: BLOOD SPECIMEN Performed By: #### 5 8410-2 ####[facility] [id number] [place] [address] CONSULTon 07-28-2020 CONSULT HNO ID: [id number] Author: Jayashree Madden Service: Gastroenterology Author Type: Nurse Practitioner Type: Consults Filed: 07/28/2020 4:37 PM Note Text: GI SERVICE INITIAL CONSULT NOTE SERVICE DATE: 07/28/2020 SERVICE TIME: 3:56 PM REASON FOR CONSULT: multiple hepatic lesions on MRI ? Abscess vs metastatic disease REQUESTING PHYSICIAN: house medicine PRIMARY CARE PHYSICIAN: No primary care provider on file. Subjective Mr. De La Vega is a 35 year old male who was transferred from [place] to [facility] 07/17/20 for surgical evaluation. PMHx of IVDU (heroin and meth), covid -19, and hepatitis C (not treated). HPI and past medical history obtained from [facility] as patient was drowsy today. He presented to [place] 07/13 for fatigue and was found to have opiate withdrawal symptoms and fever s/p TTE at [place] showing tricuspid valve vegetation and treated with vanc. Patient continued to spike fevers and was sent to [facility]. Since admission he is being treated for infective endocarditis and being followed by ID. CT abdomen and pelvis was done 07/25 showing 0.7 cm lesion right hepatic dome. MRI liver done 07/27 showing showing multiple targetoid type lesions throughout the liver. Given patient's history, multiple hepatic abscesses are consideration and Metastatic disease is is not excluded. Today patient is sleepy but awakens to name. He denies nay nausea or vomiting. He denies any abdominal pain. He reports last BM 2 days ago. He denies any h/o alcohol use and no known h/o cirrhosis. He reports h/o hepatitis C that was never treated. No h/o EGD or colonoscopy. Last time he used IV drugs 07/13/20. He denies any melena, no hematochezia and no hematemesis. LFT's were normal when checked 07/17 with alk phos elevated 120. Of note he was checked for hep B and HIV at [place] and reported negative. He was positive for covid 06/29 and rechecked 07/20 but has been taken out of isolation per ID as not likely clinically significant. GI was consulted for multiple hepatic lesion on MRI ? Abscess versus metastatic disease. FUNCTIONAL STATUS: Independent PAST MEDICAL HISTORY Diagnosis Date - Anxiety - Depression - Mild protein-calorie malnutrition (HCC) 07/19/2020 - Paranoid schizophrenia (HCC) PAST SURGICAL HISTORY Procedure Laterality Date - IR VASCULAR ACCESS TEAM PICC INSERTION RADIO 07/23/2020 - ORTHOPEDICS SURGERY HX Right pins placed in right hand No family history on file. Social History Tobacco Use - Smoking status: Current Every Day Smoker Packs/day: 1.00 Types: Cigarettes - Smokeless tobacco: Never Used Substance Use Topics - Alcohol use: Yes Comment: socially - Drug use: Yes Types: Crystal Meth, Marijuana, Heroin, Amphetamines Comment: pt does inject No medications prior to admission. Current Facility-Administered Medications Medication Dose Route Frequency - vancomycin dosing and monitoring per pharmacy OTHER As Directed - enoxaparin 40 mg injection (LOVENOX) 40 mg SUBCUTANEOUS DAILY - ondansetron 4 mg tab(s) (ZOFRAN) 4 mg ORAL q 6 H PRN Or - ondansetron (PF) 4 mg injection (ZOFRAN) 4 mg INTRAVENOUS q 6 H PRN - acetaminophen 650 mg tab(s) (TYLENOL) 650 mg ORAL q 6 H PRN - hydrOXYzine HCl 50 mg tab(s) (ATARAX) 50 mg ORAL q 6 H PRN - nicotine 14 mg/24 hr 1 Patch (NICODERM) 1 Patch TRANSDERMAL DAILY And - nicotine -- REMOVE patch OTHER DAILY And - nicotine - verify patch OTHER q 8 H - vancomycin iv piggyback 1.5 g in D5W 250 mL (VANCOCIN) 1.5 g INTRAVENOUS q 8 H - senna-docusate 8.6-50 mg 2 tablet (SENNA-S) 2 tablet ORAL BID - polyethylene glycol 3350 17 g packet (MIRALAX, GLYCOLAX) 17 g ORAL DAILY - methadone 10 mg tab(s) (DOLOPHINE) 10 mg ORAL BID - sodium chloride 0.9 % (flush) 10 mL (BD POSIFLUSH) 10 mL INTRAVENOUS q 12 H - sodium chloride 0.9 % (flush) 20 mL (BD POSIFLUSH) 20 mL INTRAVENOUS PRN - bisacodyl 10 mg suppository (DULCOLAX) 10 mg RECTAL DAILY PRN - prochlorperazine 10 mg tab(s) (COMPAZINE) 10 mg ORAL q 6 H PRN - perflutren lipid microspheres 1.1 mg/mL 1.3 mL injection (DEFINITY) 1.3 mL INTRAVENOUS DIRECTED PRN - ciprofloxacin iv piggyback 400 mg in D5W 200 mL (CIPRO) 400 mg INTRAVENOUS q 12 H - perflutren lipid microspheres 1.1 mg/mL 1.3 mL injection (DEFINITY) 1.3 mL INTRAVENOUS DIRECTED PRN - iv contrast (radiology procedure) INTRAVENOUS DIRECTED PRN Allergies As of Date: 07/17/2020 Allergen Noted Reaction PENICILLINS 12/14/2017 Swelling SULFA (SULFONAMIDE ANTIBIOTICS) 12/14/2017 Swelling Fully Assessed 07/17/2020 COMPLETE REVIEW OF SYSTEMS: PAIN ASSESSMENT: denies any pain GENERAL: Fatigue, fevers RESPIRATORY: Negative for cough, hemoptysis, wheezing, COPD, dyspnea or shortness of breath CARDIOVASCULAR: See HPI GI: Constipation MUSCULOSKELETAL: should pain SKIN: Negative for lesions, rash, and itching PSYCH: See HPI HEMATOLOGY/LYMPHOLOGY: Negative for prolonged bleeding, bruising easily or swollen nodes ENDOCRINE: Negative for cold or heat intolerance, polyuria, polydipsia and goiter NEURO: No history of headaches, syncope, paralysis, seizures or tremors Objective PHYSICAL EXAM: Physical Exam Performed: GENERAL: sleeping but awakens to name, no distress, cooperative OROPHARYNX: Lips, mucosa, and tongue normal. Teeth and gums normal. Oropharynx normal. LUNGS: Lungs clear to auscultation, Good diaphragmatic excursion CARDIAC: Normal S1 and S2; no rubs, murmurs, or gallops ABDOMEN: Abdomen soft, non-tender, BS normal, No masses or organomegaly EXTREMITIES: Normal exam of the extremities PULSES: 2+ radial The remainder of the physical exam is noncontributory. BP 115/72 Pulse 99 Temp (Src) 97.7 (Oral) Resp 18 Ht 5' 9 (1.75m) Wt 169 lb 1.6 oz (76.7kg) SpO2 97% BMI 24.96 kg/(m2). O2 Therapy: Room Air DATA: Diagnostic tests reviewed for today's visit: Most recent labs and imaging results. WBC Date Value 07/28/2020 14.30 k/uL (H) 02/10/2018 10.24 thou/cmm (H) RBC Date Value 07/28/2020 3.44 m/uL (L) 02/10/2018 4.70 mil/cmm Hemoglobin (g/dL) Date Value 07/28/2020 9.0 (L) 04/17/2014 15.1 HGB (g/dL) Date Value 02/10/2018 13.6 (L) Hematocrit (%) Date Value 07/28/2020 28.7 (L) 02/10/2018 40.9 MCV Date Value 07/28/2020 83.4 fL 02/10/2018 87.0 fl MCH (pg) Date Value 07/28/2020 26.2 02/10/2018 28.9 MCHC Date Value 07/28/2020 31.4 g/dL 02/10/2018 33.3 % RDW-CV (%) Date Value 07/28/2020 14.6 Platelet Count Date Value 07/28/2020 125 k/uL (L) 02/10/2018 299 thou/cmm MPV Date Value 07/28/2020 Comment: Unable to Report. 02/10/2018 10.4 fl Glucose (mg/dL) Date Value 07/28/2020 102 (H) 02/10/2018 98 BUN (mg/dL) Date Value 07/28/2020 14 02/10/2018 16 Creatinine (mg/dL) Date Value 07/28/2020 0.86 02/10/2018 0.92 Sodium Date Value 07/28/2020 132 mmol/L (L) 02/10/2018 138 mEq/L Potassium Date Value 07/28/2020 3.6 mmol/L (L) 02/10/2018 3.4 mEq/L (L) Chloride Date Value 07/28/2020 96 mmol/L (L) 02/10/2018 110 mEq/L (H) CO2 Date Value 07/28/2020 27 mmol/L 02/10/2018 24 mEq/L Protein, Total (g/dL) Date Value 07/17/2020 7.9 04/23/2017 7.5 Albumin (g/dL) Date Value 04/23/2017 3.5 Calcium (mg/dL) Date Value 02/10/2018 8.8 Calcium, Total (mg/dL) Date Value 07/28/2020 8.7 Alkaline Phosphatase (U/L) Date Value 07/17/2020 120 (H) 04/23/2017 85 Bilirubin, Total (mg/dL) Date Value 07/17/2020 0.3 04/23/2017 0.4 AST (U/L) Date Value 07/17/2020 27 04/23/2017 26 ALT (U/L) Date Value 07/17/2020 13 04/23/2017 30 URINALYSIS Specific [place], Ur Date Value Ref Range Status 02/10/2018 1.028 1.005 - 1.030 Final Glucose, Urine Date Value Ref Range Status 02/10/2018 NEGATIVE Negative mg/dL Final Bilirubin, Urine Date Value Ref Range Status 02/10/2018 see below (A) Negative Final Comment: Detected (Unable to confirm). Ketones, Urine Date Value Ref Range Status 02/10/2018 TRACE (A) Negative mg/dL Final Protein, Urine Date Value Ref Range Status 02/10/2018 TRACE (A) Negative mg/dL Final Urobilinogen, Urine Date Value Ref Range Status 02/10/2018 1.0 0.0 - 1.0 EU/dL Final WBC, Urine Date Value Ref Range Status 02/10/2018 1.0 0.0 - 5.0 /hpf Final MRI liver wo/w IVCON 07/27/20 IMPRESSION: Multiple too numerous to count targetoid type lesions throughout the liver. Given patient's history, multiple hepatic abscesses are consideration. Metastatic disease is is not excluded. There is splenomegaly but no obvious focal lesions within the spleen. Enlarged lymph nodes in the periportal and peripancreatic region. Contracted gallbladder with gallstones. CT abdomen and pelvis 07/25/20 IMPRESSION: Chest: 1. ?No consolidation or pleural effusion. ?No suspicious nodules. 2. ?No lymphadenopathy in the chest. Abdomen / Pelvis: 1. ?No acute intra-abdominal or pelvic findings. 2. ?Hepatic steatosis. 3. ?Indeterminate a 0.7 cm enhancing lesion in the anterior right hepatic dome for which nonemergent dedicated MRI might be obtained for further evaluation. 4. ?A few mildly prominent lymph nodes in the retroperitoneum, nonspecific in grossly unchanged since 10/2019. Impression/Recommendat ions Principal Problem: 1. Liver lesions - seen on CT abdomen and pelvis 0.7 cm right hepatic dome 07/25 and MRI liver as too numerous targetoid type lesions throughout the liver suspect abscess but can not rule out metastatic disease. H/o hepatitis C per patient. LFT's normal besides alk phos 120 on admission 07/17. H/o IVDU with infective endocarditis for which he is being treated. - h/o IVD use and hepatitis C - MRI liver done with results above - will check LFT's, INR and AFP in am - hep B serologies and HCV RNA ordered per primary team and pending- will follow up - ID following; on IV vanc and cipro - diet per primary team - will discuss with Dr. Hernández 2. Infective endocarditis - questionable. - blood cultures negative - Repeat TTE showing thickened TV but no clear vegetation - ID following - on IV vcan and cipro through 09/05/20 - leukocytosis improving and afebrile today GI will follow Thank you for the consult SIGNATURE: Jayashree Madden APRN.CNP PATIENT NAME: Khanh De La Vega DATE: July 28, 2020 TIME: 3:56 PM PAGER: [phone] Normal [facility] HBV surface Ab Ser Ql IAon 1 HBSAG Negative Normal Negative [facility] Comment on above: Order Comment: Speci men Type: BLOOD SPECIMEN Performed By: #### 2 4321-2 #### [facility] CLIA [id number] [address] [place] [address] HCV QUANT RNA BY PCRon 07-28 HCV RNA ELIANA+probe Qn HCV RNA not detecte d by PCR. Normal [facility] Comment on above: Order Comment: Speci men Type: BLOOD SPECIMEN Result Comment: Refe rence Range: Negative for HCV RNA The Linear Range of this assay is 15 IU/mL to 100,000,000 IU/mL. Performed By: #### 9 4500-6 #### [facility] CLIA [id number] 1 [place] [address] Performed By: #### 2 4321-2 #### [facility] CLIA [id number] [address] [place] [address] HEP B SURF AB QUANTon 2019 HBV surface Ab Qn (S) 270.88 mIU/mL High <8.00 [facility] Comment on above: Order Comment: Speci men Type: BLOOD SPECIMEN Result Comment: Thes e results are consistent with previous exposure and/or immunity to the hepatitis B virus antigen. Performed By: #### A HBSQ ####[facility] [id number] [place] [address] HEP C AB IA W/CONF SCRNon HEPATITIS C AB IA Positive Abnormal Negative 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 In IVDU patient. 2) Fevers- fever curve now downtrending. May have been drug fever with cefepime? 3) leukocytosis- downtrending 4) Liver lesion- MRI showed numerous targetoid type possibly abscess 5) left shoulder pain- not concerned for septic joint 5) prior COVID- originally diagnosed on 06/29 with initial symptoms starting on 06/26. Had repeat positive but don't think this is clinically significant- likely late shedding but does not signify that he is still contagious. Out of isolation. RECOMMENDATIONS: Continue vancomycin and cipro- CoPAT on physical chart. Stop=09/05 Monitor fever curve and WBC F/u repeat TTE. Tip Combs MD Infectious Disease Respiratory [place] Pager: [phone] July 28, 2020 Normal [facility] PROGRESSon 07-28-2020 PROGRESS HNO ID: [id number] Author: John Mims Service: Hospital Medicine Author Type: Resident Type: Progress Notes Filed: 07/28/2020 4:23 PM Note Text: Attestation signed by Julee Galvez at 07/29/2020 8:37 AM (Updated) Discussed with team, chart reviewed, ID and GI consults appreciated. Pt seen and evaluated on 07/28 at 1615, he looked well, as always, very pleasant, had no complaints, we discussed findings of MRI of abdomen and echocardiogram. Noted that pt had been drawing with only a blue, black and red pen as provided by nursing. Asked pt if he needed markers, said 'yes, gel pens would be nice'. Disposition - as below, await final recommendations from both GI and ID given new findings from repeat echo and MRI of abdomen. So hoping that this pt does not have neoplasm given MRI findings and hx of HCV. Will check [employer] [facility] for gel pens, see above. Attending Note I personally saw and examined the patient. I reviewed the resident's note. I agree with the resident's assessment and plan unless otherwise noted. Signature: Julee Galvez MD Date: 07/29/2020 Time: 8:36 AM HOUSE MEDICINE SERVICE PROGRESS NOTE SERVICE DATE: July 28, 2020 SERVICE TIME: 3:49 PM NIGHT AND WEEKEND COVERAGE: From 6 AM to 5 PM: You may reach the House Medicine sales and marketing intern currently assigned to this patient by finding their pager number on the treatment team (they will be assigned as the sales and marketing intern or resident). It is the last four digits in the phone number beginning with ([phone]). We encourage the use of [employer] Secure Chat. SUBJECTIVE HPI: 35 yr male who is a chronic IVDU since 2009 and Hep C positive ( antibody positive on 11/23/19), presented to the [facility] for chronic fatigue on 07/13/20. He was found to have opiate withdrawal symptoms and had spiking fevers maximum temp being 102 F, raised WBC and negative blood cultures (07/15). His urine tox was positive for opiates, amphetamines and opiates. 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 ID consultation was done and his zosyn was switched to cefepime. He was treated for opioid withdrawal with buprenorphine which was tapered. He was found to be negative for HIV and Hep B and his WBCs started trending down, however he still spiked fevers. Repeat blood cultures on 07/15 were sent which is still pending. He was transferred to [facility] for CT surgery evaluation for possible surgery for his IE. Interval Events: Had telephone encounter with patient is morning. States no acute worsening of symptoms and no concerns at this time. He does not complain of any chest pain, shortness of breath, nausea/vomiting, abdominal pain this morning. Discussed with patient the results of the echo he had yesterday. Also described the results of the liver MRI he had as well, explaining innumerable hepatic lesions concerning for abscesses versus metastatic disease. He expressed understanding of this. Otherwise, clinical status without any major changes today. OBJECTIVE Medications: IV Infusions: Scheduled: - ciprofloxacin, 400 mg, q 12 H - methadone, 10 mg, BID - sodium chloride 0.9 % (flush), 10 mL, q 12 H - vancomycin, 1.5 g, q 8 H - senna-docusate, 2 tablet, BID - polyethylene glycol 3350, 17 g, DAILY - nicotine, 1 Patch, DAILY And - nicotine -- REMOVE patch, , DAILY And - nicotine - verify patch, , q 8 H - vancomycin dosing and monitoring per pharmacy, , As Directed - enoxaparin, 40 mg, DAILY PRN: - perflutren lipid microspheres, 1.3 mL, DIRECTED PRN - iv contrast, , DIRECTED PRN - perflutren lipid microspheres, 1.3 mL, DIRECTED PRN - sodium chloride 0.9 % (flush), 20 mL, PRN - bisacodyl, 10 mg, DAILY PRN - prochlorperazine, 10 mg, q 6 H PRN - ondansetron, 4 mg, q 6 H PRN Or - ondansetron (PF), 4 mg, q 6 H PRN - acetaminophen, 650 mg, q 6 H PRN - hydrOXYzine HCl, 50 mg, q 6 H PRN Vital Signs: BP 115/72 Pulse 99 Temp (Src) 97.7 (Oral) Resp 18 Ht 5' 9 (1.75m) Wt 169 lb 1.6 oz (76.7kg) SpO2 97% BMI 24.96 kg/(m2). O2 Therapy: Room Air Physical Exam Performed: Due to the current efforts to prevent transmission of COVID-19 and also the need to preserve PPE for caregivers, a xxiy-[id number]-[id number] encounter with the patient was not performed. That being said, all relevant records and diagnostic tests were reviewed, including laboratory results and imaging. Please reference attending physician documentation for physical exam. Care will be coordinated with the team members. Lines, Drains, and Airways Line Central Line Single Lumen 07/23/20 1447 Peripherally Inserted (PICC) Right Arm 4.0 Bangl[place] 5 days Assessment/Plan Problem List Infective endocarditis Methamphetamine dependence (HCC) Cannabis dependence (HCC) Nicotine use disorder, F17.2 IVDU (intravenous drug user) Fever Leucocytosis Hepatitis C antibody positive in blood Hyponatremia ?Infective endocarditis - Blood cultures negative x5 days. Negative fungal cultures. - ID following, recommend continuing Vanc/Cipro until 09/05/2020. - PICC line in place. - Repeat TTE showed thickened TV, but no clear evidence of vegetation. - CTS does not plan any intervention at this time. - Will continue to monitor for worsening symptoms, fevers. Intrahepatic Lesions, Likely Abscesses vs Metastatic Disease - MRI Liver 07/27/2020 shows Multiple too numerous to count targetoid type lesions throughout the liver. Given patient's history, multiple hepatic abscesses are consideration. Metastatic disease is is not excluded. - Likely related to his history of IVDU, and ?hepatitis C positivity. - No records of Hep C testing in [facility] or [facility], reordered Hep C and B panel. - Consulted GI, appreciate recs. - Potentially could obtain lesion biopsy as some are superficial anteriorly. ? Leukocytosis - WBC 17.4 -> 14.3, improving. - MRI concerning for innumerable liver lesions highly concerning for abscesses vs. Metastatic disease. - Potential cause of leukocytosis, as IE less likely now. ? Constipation? - On senna docusate and miralax. ? Hyponatremia (Euvolemic) - Na 128 -> 132 today. - Will continue to monitor for symptoms and monitor daily Na level. - Likely 2/[address] chest negative for any suspicious lesions. . Anemia - Hgb 9.0 today, stable. - Likely anemia of chronic disease. Nicotine dependence. - Continue nicotine patch. ? H/o opioid use - Back and sometimes shoulder pain, likely 2/2 opioid withdrawal. - Pain management is on board, continue methadone. Medication and Non-Pharmacologic VTE Prophylaxis/Anticoagul ants Anticoagulant AND Antiplatelet Medications (From admission, onward) Start Dose Route Frequency Ordered Stop 07/17/202099 enoxaparin 40 mg injection (LOVENOX) (Medical Risk Categories) 40 mg SUBCUTANEOUS DAILY 07/17/202044 -- 07/17/202044 pneumatic compression stockings (ct,mi) 07/17/202044 activity - mobilize patient ([place], [place]) VTE Prophylaxis: VTE prophylaxis appropriate GI Prophylaxis: Not indicated Telemetry: Not indicated Disposition: [facility] Code Status: Not on file Plan of care discussed with: Provider, RN, Patient SIGNATURE: John Mims DO PATIENT NAME: Khanh De La Vega DATE: July 28, 2020 TIME: 3:49 PM Pager [phone] [facility] PROGRESS HNO ID: [id number] Author: Marilyn Graham Service: Pain Management Author Type: Physician Type: Progress Notes Filed: 07/28/2020 3:43 PM Note Text: Name: KHANH DE LA VEGA Age: [age] year old PAIN MANAGEMENT: Back pain, TV endocarditis, IVDA; opiate dependent Pain Description: Patient feels better. Some back pain but overall improving Interval HPI: T-max to 38 Room air 97%. Leukocytosis downtrending MRI liver lesion numerous targetoid type possibly abscess ID plan vancomycin and Cipro through 09/05. Will need repeat TTE 24H Comfort Meds: Tylenol 650 mg x 2 Methadone 10 mg twice daily x2 Antibiotic Therapy: Cipro, vancomycin through 09/05 Subjective HPI: 35-year-old male with history of active IVDA (heroin, fentanyl, methamphetamine-daily times years), hepatitis C presented to [facility] 07/13 with worsening fatigue, fevers. Patient was noted to have leukocytosis; urine drug screen positive for opiates and amphetamines. TTE demonstrated 0.5 x 1 cm tricuspid valve vegetation. Patient was started on IV vancomycin and Zosyn. He was briefly treated with Suboxone for opiate withdrawal. He was transferred to [facility] 07/17 for evaluation by CTS for possible surgery. Patient states he last used IV heroin and methamphetamine on 07/13. He was intolerant of Suboxone in the past due to GI upset. He had been on it for about 3 months 5 years ago. He has not been on methadone maintenance. He complains of back pain as well as some mild withdrawal symptoms. OARRS Review: 1 prescription [place] 5/325 #10 Current Facility-Administered Medications Medication Dose Route Frequency Provider Last Rate Last Admin - ciprofloxacin iv piggyback 400 mg in D5W 200 mL (CIPRO) 400 mg INTRAVENOUS q 12 H Stevo Albino Dumford III 200 mL/hr at 07/28/20 0900 Restarted at 07/28/20 0900 - perflutren lipid microspheres 1.1 mg/mL 1.3 mL injection (DEFINITY) 1.3 mL INTRAVENOUS DIRECTED PRN Stevo Crenshawford III - iv contrast (radiology procedure) INTRAVENOUS DIRECTED PRN Stevo Crenshawford III - perflutren lipid microspheres 1.1 mg/mL 1.3 mL injection (DEFINITY) 1.3 mL INTRAVENOUS DIRECTED PRN Nishad (Res) Barve - methadone 10 mg tab(s) (DOLOPHINE) 10 mg ORAL BID Heike (Res) MD Floyd 10 mg at 07/28/20 0916 - sodium chloride 0.9 % (flush) 10 mL (BD POSIFLUSH) 10 mL INTRAVENOUS q 12 H Heike (Res) MD Floyd 10 mL at 07/28/20 0900 - sodium chloride 0.9 % (flush) 20 mL (BD POSIFLUSH) 20 mL INTRAVENOUS PRN Heike (Rodríguez) MD Floyd - bisacodyl 10 mg suppository (DULCOLAX) 10 mg RECTAL DAILY PRN Heike (Rodríguez) MD Floyd 10 mg at 07/26/20 1000 - prochlorperazine 10 mg tab(s) (COMPAZINE) 10 mg ORAL q 6 H PRN Heike (Rodríguez) MD Floyd - vancomycin iv piggyback 1.5 g in D5W 250 mL (VANCOCIN) 1.5 g INTRAVENOUS q 8 H Heike (Rodríguez) MD Floyd 125 mL/hr at 07/28/20 1517 1.5 g at 07/28/20 1517 - senna-docusate 8.6-50 mg 2 tablet (SENNA-S) 2 tablet ORAL BID Heike Barrientos MD 2 tablet at 07/27/202038 - polyethylene glycol 3350 17 g packet (MIRALAX, GLYCOLAX) 17 g ORAL DAILY Heike Barrientos MD 17 g at 07/27/20 0925 - nicotine 14 mg/24 hr 1 Patch (NICODERM) 1 Patch TRANSDERMAL DAILY Heike Barrientos MD 1 Patch at 07/28/20 0916 And - nicotine -- REMOVE patch OTHER DAILY Heike Barrientos MD And - nicotine - verify patch OTHER q 8 H Heike Quevedo) MD Floyd - vancomycin dosing and monitoring per pharmacy OTHER As Directed Heike Barrientos MD - enoxaparin 40 mg injection (LOVENOX) 40 mg SUBCUTANEOUS DAILY Heike Barrientos MD 40 mg at 07/28/20 0916 - ondansetron 4 mg tab(s) (ZOFRAN) 4 mg ORAL q 6 H PRN Heike Barrientos MD 4 mg at 07/24/20 0920 Or - ondansetron (PF) 4 mg injection (ZOFRAN) 4 mg INTRAVENOUS q 6 H PRN Heike Barrientos MD 4 mg at 07/23/20 0813 - acetaminophen 650 mg tab(s) (TYLENOL) 650 mg ORAL q 6 H PRN Heike Barrientos MD 650 mg at 07/28/20 1040 - hydrOXYzine HCl 50 mg tab(s) (ATARAX) 50 mg ORAL q 6 H PRN Heike Barrientos MD 50 mg at 07/28/20 1050 No medications prior to admission. Social History Tobacco Use - Smoking status: Current Every Day Smoker Packs/day: 1.00 Types: Cigarettes - Smokeless tobacco: Never Used Substance Use Topics - Alcohol use: Yes Comment: socially - Drug use: Yes Types: Crystal Meth, Marijuana, Heroin, Amphetamines Comment: pt does inject No family history on file. PAST SURGICAL HISTORY Procedure Laterality Date - IR VASCULAR ACCESS TEAM PICC INSERTION RADIO 07/23/2020 - ORTHOPEDICS SURGERY HX Right pins placed in right hand ROS: All of the following reviewed and negative except as noted below: Significant for HPI GENERAL: no fever, chills, sweats, weight loss, fatigue, generalized weakness HEENT: no headache, vision changes, eye discomfort, hearing change, ear discomfort, sinus pain, nasal discharge or congestion, oral lesions, soreness, dental problem NECK: no adenopathy, discomfort, change in ROM CHEST: no shortness of breath, dyspnea on exertion, wheezing, cough, sputum production or chest pain HEART: no chest pain, palpitations, syncope ABDOMEN: no nausea, vomiting, constipation, diarrhea, abdominal pain : no dysuria, urgency, frequency, history of stones, incontinence NEURO: no confusion or alteration in consciousness, slurred speech, seizure, focal weakness EXTREMITIES: no new pain, edema, change in ROM HEME: no new adenopathy, bruises, petechiae PSYCH: no depression, anxiety, agitation PAIN PSYCHIATRIC EXAM: GENERAL: alert, oriented to person, place, time JUDGMENT AND INSIGHT: intact APPEARANCE: neatly groomed DEMEANOR: coooperative, not hostile, mistrustful, preoccupied, or demanding ACTIVITY: normal, not hyperactive or hypoactive, no tremors, tics EYE CONTACT: normal SPEECH: normal, rate, volume, articulation, coherence, spontaneity MOOD: normal, without overt sadness, grief, anxiety, appropriate to situation IDEATION: Deferred MEMORY: intact PHYSICAL EXAMINATION: GENERAL: well nourished and developed; no acute distress; alert and oriented x 3; intact judgement and insight HEENT: no evidence of trauma; cranial nerves intact; eyes clear EOMI; no hearing deficits apparent; nasal passages unremarkable; throat and mucous membranes clear NECK: supple without lymphadenopathy; no JVD; no thyromegaly CHEST: clear bilaterally to auscultation; normal chest movement; no rales or rhonchi HEART: regular rate and rhythm, 2/6 systolic murmur ABDOMEN: soft; nondistended; bowel sounds present; no hepatomegaly; no splenomegaly; no tenderness EXTREMITIES: no evidence of clubbing; no cyanosis; no deformity; no joint effusion; no edema NEURO: cranial nerves intact; no focal deficits; no confusion; no tremor; sensorium normal SKIN: no rash; no skin breakdown; no decubitus lesions HEME: no bruising; no adenopathy PSYCH: no evidence of depression; no anxiety; no agitation; no apparent hallucinations BP 115/72 Pulse 99 Temp 36.5 ?C (97.7 ?F) (Oral) Resp 18 Ht 175.3 cm (5' 9) Wt 76.7 kg (169 lb 1.6 oz) SpO2 97% BMI 24.97 kg/m? BMI 24.97 kg/(m2) ABNORMAL/NEW FINDINGS: NONE RADIOLOGY/DIAGNOSTICS: LABORATORY: CBC: Recent Labs 07/28/20 0410 WBC 14.30* RBC 3.44* HB 9.0* HCT 28.7* PLT 125* MCV 83.4 MCH 26.2 CMP: Recent Labs 07/28/20 0410 NA 132* K 3.6* CHLOR 96* CO2 27 BUN 14 CREAT 0.86 GLUC 102* CA 8.7 ANION 9 Heme: No results for input(s): RETICP, ABSRETIC, LD, YEIMY, FE, TIBC, TRANSFERSAT in the last 24 hours. 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 Repeat blood cultures pending. Repeat TTE later this week per ID Indeterminate hepatic lesion on CT; MRI demonstrated numerous targetoid type lesions possibly multiple hepatic abscesses Continue IV vancomycin and Cipro through 09/05 Status post prior Suboxone taper at initial presentation at [facility]. Ongoing complaints of back pain-overall improving, Defer any work-up to primary service. Schedule methadone 10 mg twice tid with plans to taper over the next few weeks Plan for methadone taper at discharge. Will leave prescription for SNF Marilyn Graham MD ADDENDUM: Portions of this note were copied so as to provide important historical information essential in contributing to medical decision making today. ADDENDUM: Even the portions of this note that were copied have been reviewed completely and edited so as to result in a note that most accurately reflects my complete evaluation today. Normal [facility] PROGRESS HNO ID: [id number] Author: Interface Note Service: ? Author Type: ? Type: Progress Notes Filed: 07/28/2020 3:25 AM Note Text: Epic Scheduled Downtime: 07/28/2020 12:20:00 AM to 07/28/2020 3:09:00 AM Normal [facility] Renal Func 2000 Pnl SerPlon 07-28-2020 Albumin [Mass/Vol] 2.7 g/dL Low 3.9-4.9 [facility] Comment on above: Order Comment: Speci men Type: BLOOD SPECIMEN Performed By: #### H ISTCL #### [facility] CLIA [id number] [address] [place] [address] Anion gap [Moles/Vol] 9 mmol/L Normal 9-18 [facility] Comment on above: Order Comment: Speci men Type: BLOOD SPECIMEN Performed By: #### H ISTCL #### [facility] CLIA [id number] [address] [place] [address] Calcium [Mass/Vol] 8.7 mg/dL Normal 8.5-10.2 [facility] Comment on above: Order Comment: Speci men Type: BLOOD SPECIMEN Performed By: #### H ISTCL #### [facility] CLIA [id number] [address] [place] [address] Chloride [Moles/Vol] 96 mmol/L Low 97-105 [facility] Comment on above: Order Comment: Speci men Type: BLOOD SPECIMEN Performed By: #### H ISTCL #### [facility] CLIA [id number] [address] [place] [address] CO2 [Moles/Vol] 27 mmol/L Normal 22-30 [facility] Comment on above: Order Comment: Speci men Type: BLOOD SPECIMEN Performed By: #### H ISTCL #### [facility] CLIA [id number] [address] [place] [address] Creatinine [Mass/Vol] 0.86 mg/dL Normal 0.73-1.22 [facility] Comment on above: Order Comment: Speci men Type: BLOOD SPECIMEN Performed By: #### H ISTCL #### [facility] CLIA [id number] [address] [place] [address] GFR/1.73 sq M.predicted MDRD (S/P/Bld) [Vol rate/Area] mL/min/{1.73_m2} Normal [facility] Comment on above: Order Comment: Speci men Type: BLOOD SPECIMEN Result Comment: >60 eGFR (Estimated GFR) Units of measure: mL/min/1.73 meters squared eGFR is derived from the reexpressed MDRD Study equation using the following parameters: serum creatinine, age, gender and race. The creatinine assay has been calibrated to be traceable to IDMS. An eGFR <60 mL/min/1.73m2 for >3 months is consistent with chronic kidney disease. Refer to KDOQI guidelines for clinical interpretation. In patients with unstable renal function, e.g. those with acute kidney injury, the eGFR may not accurately reflect actual GFR. Performed By: #### H ISTCL #### [facility] CLIA [id number] [address] [place] [address] Glucose [Mass/Vol] 102 mg/dL High 74-99 [facility] Comment on above: Order Comment: Speci men Type: BLOOD SPECIMEN Result Comment: The Indian Diabetes Association (ADA) provides guidance for cutoff values for fasting glucose and random glucose. The ADA defines fasting as no caloric intake for at least 8 hours. Fasting plasma glucose results between 100 to 125 mg/dL indicate increased risk for diabetes (prediabetes). Fasting plasma glucose results greater than or equal to 126 mg/dL meet the criteria for diagnosis of diabetes. In the absence of unequivocal hyperglycemia, results should be confirmed by repeat testing. In a patient with classic symptoms of hyperglycemia or hyperglycemic crisis, random plasma glucose results greater than or equal to 200 mg/dL meet the criteria for diagnosis of diabetes. Reference: Standards of Medical Care in Diabetes 2016, Indian Diabetes Association. Diabetes Care. 2016.39(Suppl 1). Performed By: #### H ISTCL #### [facility] CLIA [id number] [address] [place] [address] Phosphate [Mass/Vol] 4.5 mg/dL Normal 2.7-4.8 [facility] Comment on above: Order Comment: Speci men Type: BLOOD SPECIMEN Performed By: #### H ISTCL #### [facility] CLIA [id number] [address] [place] [address] Potassium [Moles/Vol] 3.6 mmol/L Low 3.7-5.1 [facility] Comment on above: Order Comment: Speci men Type: BLOOD SPECIMEN Performed By: #### H ISTCL #### [facility] CLIA [id number] [address] [place] [address] Sodium [Moles/Vol] 132 mmol/L Low 136-144 [facility] Comment on above: Order Comment: Speci men Type: BLOOD SPECIMEN Performed By: #### H ISTCL #### [facility] CLIA [id number] [address] [place] [address] Urea nitrogen [Mass/Vol] 14 mg/dL Normal 9-24 [facility] Comment on above: Order Comment: Speci men Type: BLOOD SPECIMEN Performed By: #### H ISTCL #### [facility] CLIA [id number] [address] [place] [address] ALLIED HEALTHon 07-27-2020 ALLIED HEALTH HNO ID: [id number] Author: Angela Kwon (Rt) Service: Radiology Author Type: Steam Cleaning Machine Operator Type: Allied Health Filed: 07/27/2020 6:50 PM Note Text: Radiology Service Progress Note DATE OF SERVICE: July 27, 2020 TIME: 6:49 PM PATIENT IDENTITY VERIFICATION COMPLETED USING TWO (2) STANDARD IDENTIFIERS: Name and Date of confirmed by patient verbally and Name and Date of confirmed by identification band. FALL SCREENING: Has the patient had 2 falls in the last year or 1 fall with injury or currently using an Ambulatory Assistive Device (Walker, Cane, Wheelchair, Crutches, etc.)? Inpatient: Screened on floor PATIENT GENDER DATA: Male PATIENT RELEVANT IMPLANT DATA REVIEWED: Yes ALLERGIES: Reviewed and unchanged CONTRAST ALLERGY: NO. EXAM: MRI - CONTRAST TYPE: GROUP II PERIPHERAL IV DATA: Inpatient - refer to LDA documentation RADIOLOGY DEPARTMENT: MR; Exam(s) Completed: Body: Liver (routine) SIGNATURE: RT STEVE, lmj4 PATIENT NAME: Khanh De La Vega DATE: July 27, 2020 TIME: 6:49 PM Normal [facility] Bas Metab 2000 Pnl SerPlon 1 Anion gap [Moles/Vol] 8 mmol/L Low 9-18 [facility] Comment on above: Order Comment: Speci men Type: BLOOD SPECIMEN Performed By: #### 6 00-7 #### [facility] CLIA [id number] [address] [place] [address] Calcium [Mass/Vol] 8.6 mg/dL Normal 8.5-10.2 [facility] Comment on above: Order Comment: Speci men Type: BLOOD SPECIMEN Performed By: #### 6 00-7 #### [facility] CLIA [id number] [address] [place] [address] Chloride [Moles/Vol] 91 mmol/L Low 97-105 [facility] Comment on above: Order Comment: Speci men Type: BLOOD SPECIMEN Performed By: #### 6 00-7 #### [facility] CLIA [id number] [address] [place] [address] CO2 [Moles/Vol] 29 mmol/L Normal 22-30 [facility] Comment on above: Order Comment: Speci men Type: BLOOD SPECIMEN Performed By: #### 6 00-7 #### [facility] CLIA [id number] [address] [place] [address] Creatinine [Mass/Vol] 0.77 mg/dL Normal 0.73-1.22 [facility] Comment on above: Order Comment: Speci men Type: BLOOD SPECIMEN Performed By: #### 6 00-7 #### [facility] CLIA [id number] [address] [place] [address] GFR/1.73 sq M.predicted MDRD (S/P/Bld) [Vol rate/Area] mL/min/{1.73_m2} Normal [facility] Comment on above: Order Comment: Speci men Type: BLOOD SPECIMEN Result Comment: >60 eGFR (Estimated GFR) Units of measure: mL/min/1.73 meters squared eGFR is derived from the reexpressed MDRD Study equation using the following parameters: serum creatinine, age, gender and race. The creatinine assay has been calibrated to be traceable to IDMS. An eGFR <60 mL/min/1.73m2 for >3 months is consistent with chronic kidney disease. Refer to KDOQI guidelines for clinical interpretation. In patients with unstable renal function, e.g. those with acute kidney injury, the eGFR may not accurately reflect actual GFR. Performed By: #### 6 00-7 #### [facility] CLIA [id number] [address] [place] [address] Glucose [Mass/Vol] 91 mg/dL Normal 74-99 [facility] Comment on above: Order Comment: Speci men Type: BLOOD SPECIMEN Result Comment: The [place] Diabetes Association (ADA) provides guidance for cutoff values for fasting glucose and random glucose. The ADA defines fasting as no caloric intake for at least 8 hours. Fasting plasma glucose results between 100 to 125 mg/dL indicate increased risk for diabetes (prediabetes). Fasting plasma glucose results greater than or equal to 126 mg/dL meet the criteria for diagnosis of diabetes. In the absence of unequivocal hyperglycemia, results should be confirmed by repeat testing. In a patient with classic symptoms of hyperglycemia or hyperglycemic crisis, random plasma glucose results greater than or equal to 200 mg/dL meet the criteria for diagnosis of diabetes. Reference: Standards of Medical Care in Diabetes 2016, [employer] Diabetes Association. Diabetes Care. 2016.39(Suppl 1). Performed By: #### 6 00-7 #### [facility] CLIA [id number] [address] [place] [address] Potassium [Moles/Vol] 4.1 mmol/L Normal 3.7-5.1 [facility] Comment on above: Order Comment: Speci men Type: BLOOD SPECIMEN Performed By: #### 6 -7 #### [facility] CLIA [id number] [address] [place] [address] Sodium [Moles/Vol] 128 mmol/L Low 136-144 [facility] Comment on above: Order Comment: Speci men Type: BLOOD SPECIMEN Performed By: #### 6 -7 #### [facility] CLIA [id number] [address] [place] [address] Urea nitrogen [Mass/Vol] 10 mg/dL Normal 9-24 [facility] Comment on above: Order Comment: Speci men Type: BLOOD SPECIMEN Performed By: #### 6 -7 #### [facility] CLIA [id number] [address] [place] [address] CASE MANAGEMon 07-27-2020 CASE MANAGEM HNO ID: [id number] Author: Octavia (Rn) INDY Bennett Service: Nursing Author Type: Registered Nurse Type: Care Mgt Progress Note Filed: 07/27/2020 2:27 PM Note Text: CARE MANAGEMENT PROGRESS NOTE SERVICE DATE: 07/27/2020 SERVICE TIME: 2:27 PM LOS: 10 days Plan is [place] at d/c. MRI pending. Will need auth prior to d/c. Will not d/c over the weekend. SIGNATURE: Octavia Bennett RN PATIENT NAME: Khanh De La Vega DATE: July 27, 2020 TIME: 2:27 PM PAGER/CONTACT #: [phone] Normal [facility] CBC (hemogram) Bld Autoon Erythrocyte distribution width (RBC) [Ratio] 14.2 % Normal 11.5-15.0 [facility] Comment on above: Order Comment: Speci men Type: BLOOD SPECIMEN Performed By: #### 2 4321-2 #### [facility] CLIA [id number] [address] [place] [address] Hematocrit (Bld) [Volume fraction] 29.6 % Low 39.0-51.0 [facility] Comment on above: Order Comment: Speci men Type: BLOOD SPECIMEN Performed By: #### 2 4321-2 #### [facility] CLIA [id number] [address] [place] [address] Hemoglobin (Bld) [Mass/Vol] 9.4 g/dL Low 13.0-17.0 [facility] Comment on above: Order Comment: Speci men Type: BLOOD SPECIMEN Performed By: #### 2 4321-2 #### [facility] CLIA [id number] [address] [place] [address] MCH (RBC) [Entitic mass] 26.3 pg Normal 26.0-34.0 [facility] Comment on above: Order Comment: Speci men Type: BLOOD SPECIMEN Performed By: #### 2 4321-2 #### [facility] CLIA [id number] [address] [place] [address] MCHC (RBC) [Mass/Vol] 31.8 g/dL Normal 30.5-36.0 [facility] Comment on above: Order Comment: Speci men Type: BLOOD SPECIMEN Performed By: #### 2 4321-2 #### [facility] CLIA [id number] [address] [place] [address] MCV (RBC) [Entitic vol] 82.9 fL Normal 80.0-100.0 [facility] Comment on above: Order Comment: Speci men Type: BLOOD SPECIMEN Performed By: #### 2 4321-2 #### [facility] CLIA [id number] [address] [place] [address] Nucleated RBC (Bld) [#/Vol] 10*3/uL Normal <0.01 [facility] Comment on above: Order Comment: Speci men Type: BLOOD SPECIMEN Performed By: #### 2 4321-2 #### [facility] CLIA [id number] [address] [place] [address] Platelet mean volume (Bld) [Entitic vol] 11.3 fL Normal 9.0-12.7 [facility] Comment on above: Order Comment: Speci men Type: BLOOD SPECIMEN Performed By: #### 2 4321-2 #### [facility] CLIA [id number] [address] [place] [address] Platelets (Bld) [#/Vol] 167 10*3/uL Normal 150-400 [facility] Comment on above: Order Comment: Speci men Type: BLOOD SPECIMEN Performed By: #### 2 4321-2 #### [facility] CLIA [id number] [address] [place] [address] RBC (Bld) [#/Vol] 3.57 10*6/uL Low 4.20-6.00 [facility] Comment on above: Order Comment: Speci men Type: BLOOD SPECIMEN Performed By: #### 2 4321-2 #### [facility] CLIA [id number] [address] [place] [address] WBC (Bld) [#/Vol] 17.40 10*3/uL High 3.70-11.00 [facility] Comment on above: Order Comment: Speci men Type: BLOOD SPECIMEN Performed By: #### 2 4321-2 #### [facility] CLIA [id number] [address] [place] [address] CONSULT PROGon 07-27-2020 CONSULT PROG HNO ID: [id number] Author: Toby Villatoro Service: Pharmacy Author Type: Pharmacist Type: Consult Progress Note Filed: 07/27/2020 4:44 PM Note Text: PHARMACY VANCOMYCIN DOSING NOTE Patient Name: Khanh De La Vega Admission Date: 07/17/2020 Date of Consult: 07/27/2020 Time of Consult: 4:32 PM Indication: Endocarditis Goal Range: 15-25 mcg/mL RECOMMENDATIONS/PLAN: Pharmacy consulted for vancomycin dosing for Khanh De La Vega, a 35 year old, male who is being treated with vancomycin for Endocarditis with planned therapy through 09/05/2020 1. Patient is currently ordered vancomycin 1.5g iv q8h. Today is day 10 of therapy. 2. The most recent vancomycin level was 22.9 mcg/mL drawn at 1530 on 07/27/2020. This is a 6 hour level on the 10th day of therapy. 3. The present dose of vancomycin is the recommended dosage for this patient at this time. Continue therapy as prescribed. 4. The next vancomycin level has been ordered for 07/30/2020 before am dose. (Completed) We will follow patient renal function, vancomycin levels and doses with you during the course of therapy. Additional recommendations will appear in follow up notes. If you have any questions, please contact Clare YbarraD at [phone]. Vancomycin dose was a little higher than I would like since he is going to be on vancomycin for so long, but this morning's dose was delayed so level is a 6 hour post dose level and true trough is probably closer to 17-18mg/dL. Will monitor renal function over the weekend and if any change get a level sooner. Otherwise, will check trough with Thursday am dose. Age: [age] year old Allergies: ALLERGIES Allergen Reactions - Penicillins Swelling - Sulfa (Sulfonamide * Swelling Last 3 Encounter Wt Readings: Date: Wt: 07/17/2020 76.7 kg (169 lb 1.6 oz) 11/23/2019 81.6 kg (180 lb) 02/25/2018 81.6 kg (180 lb) Last 1 Encounter Ht Readings: Date: Ht: 07/17/2020 175.3 cm (5' 9) Estimated Creatinine Clearance: 132.6 mL/min (based on SCr of 0.77 mg/dL). Temp (24hrs), Av.8 ?C (100 ?F), Min:37.5 ?C (99.5 ?F), Max:38.1 ?C (100.6 ?F) - Current Temp: 37.8 ?C (100 ?F) Labs BUN (mg/dL) Date Value 07/27/2020 10 07/26/2020 10 07/25/2020 14 02/10/2018 16 04/23/2017 8 04/21/2017 10 Creatinine (mg/dL) Date Value 07/27/2020 0.77 07/26/2020 0.83 07/25/2020 0.78 02/10/2018 0.92 04/23/2017 0.81 04/21/2017 0.88 WBC Date Value 07/27/2020 17.40 k/uL (H) 07/26/2020 22.11 k/uL (H) 07/25/2020 21.51 k/uL (H) 02/10/2018 10.24 thou/cmm (H) 04/23/2017 9.9 thou/cmm 04/21/2017 9.9 thou/cmm Vancomycin Levels: Vancomycin (ug/mL) Date/Time Value 07/27/2020 1530 22.9 (H) 07/23/2020 1510 18.5 Toby Villatoro, PharmD [facility] CONSULT PROG HNO ID: [id number] Author: Toby Villatoro Service: Pharmacy Author Type: Pharmacist Type: Consult Progress Note Filed: 07/27/2020 9:13 AM Note Text: PHARMACY VANCOMYCIN DOSING NOTE Patient Name: Khanh De La Vega Admission Date: 07/17/2020 Date of Consult: 07/27/2020 Time of Consult: 8:05 AM Indication: Endocarditis Goal Range: 15-25 mcg/mL RECOMMENDATIONS/PLAN: Pharmacy consulted for vancomycin dosing for Khanh De La Vega, a 35 year old, male who is being treated with vancomycin for Endocarditis 1. Patient is currently ordered vancomycin 1.5 g IV q8h. Today is day 10 of therapy. 2. The most recent vancomycin level was 18.5 mcg/mL drawn at 1510 on 07/23/20. This is a 7 hour level on the 6th day of therapy. 3. The present dose of vancomycin is the recommended dosage for this patient at this time. Continue therapy as prescribed. 4. The next vancomycin level has been ordered for 07/27/20 at 1530 prior to 1600 dose (Completed) We will follow patient renal function, vancomycin levels and doses with you during the course of therapy. Additional recommendations will appear in follow up notes. If you have any questions, please contact Clare YbarraD at [phone]. Age: [age] year old Allergies: ALLERGIES Allergen Reactions - Penicillins Swelling - Sulfa (Sulfonamide * Swelling Last 3 Encounter Wt Readings: Date: Wt: 07/17/2020 76.7 kg (169 lb 1.6 oz) 11/23/2019 81.6 kg (180 lb) 02/25/2018 81.6 kg (180 lb) Last 1 Encounter Ht Readings: Date: Ht: 07/17/2020 175.3 cm (5' 9) CrCl: 132 mL/min Temp (24hrs), Av.5 ?C (99.5 ?F), Min:36.5 ?C (97.7 ?F), Max:38.1 ?C (100.6 ?F) - Current Temp: 37.8 ?C (100 ?F) Labs BUN (mg/dL) Date Value 07/27/2020 10 07/26/2020 10 07/25/2020 14 02/10/2018 16 04/23/2017 8 04/21/2017 10 Creatinine (mg/dL) Date Value 07/27/2020 0.77 07/26/2020 0.83 07/25/2020 0.78 02/10/2018 0.92 04/23/2017 0.81 04/21/2017 0.88 WBC Date Value 07/27/2020 17.40 k/uL (H) 07/26/2020 22.11 k/uL (H) 07/25/2020 21.51 k/uL (H) 02/10/2018 10.24 thou/cmm (H) 04/23/2017 9.9 thou/cmm 04/21/2017 9.9 thou/cmm Vancomycin Levels: Vancomycin (ug/mL) Date/Time Value 07/23/2020 1510 18.5 07/21/2020 0559 23.1 (H) Lyndsay Penny ([employer]) ADDENDUM: Agree with plan above Will check trough level today and adjust if needed. Toby Villatoro, PharmD July 27, 2020 9:13 AM Normal [facility] MRI LIVER WO/W IVCONon 07-27 MRI LIVER WO/W IVCON Final Report DATE OF EXAM: Jul 27 2020 7:34PM [facility] 0727 - MRI LIVER WO/W IVCON / PROCEDURE REASON: Liver lesion, <1cm, CT indeterminate, normal liver, no known malignancy Physician Interpretation EXAM TITLE: MRI LIVER WO/W IVCON DATE: 07/27/2020 INDICATION: Abscess of the mediastinum with endocarditis. Persistent fever. Suspicion of lesions in the liver on recent CT scan of 07/25/2020 COMPARISON: 07/25/2020 A series of T1 and T2-weighted axial, coronal, sagittal images were acquired through the upper abdomen both prior to and following administration of 16 cc of Dotarem intravenous contrast. Lung bases: Clear. Liver: 1. Multiple too numerous to count lesions noted through out the liver. These measure up to 1.5 cm in diameter. These demonstrate target-like enhancement. 2. Vascular structures are patent. Main portal vein, all 3 hepatic veins, and hepatic artery are patent. Gallbladder/bile ducts: Contracted gallbladder with multiple gallstones. No bile duct dilatation.. Pancreas: Unremarkable. Adrenal glands: Unremarkable. Spleen: Splenomegaly with the spleen measuring up to 15 cm in length.. Kidneys: Unremarkable. Bowel: No dilated bowel.. Ascites: None. Retroperitoneum: Enlarged periportal and peripancreatic lymph nodes. Lymph node in the posterior pancreaticoduodenal lymph node chain measures 4.3 x 2.6 cm. Portal lymph node adjacent to the main portal vein measures 2.2 x 2.0 cm on 24:19. Bony structures: No significant additional findings. IMPRESSION: Multiple too numerous to count targetoid type lesions throughout the liver. Given patient's history, multiple hepatic abscesses are consideration. Metastatic disease is is not excluded. There is splenomegaly but no obvious focal lesions within the spleen. Enlarged lymph nodes in the periportal and peripancreatic region. Contracted gallbladder with gallstones. Life Support Technician: MORGAN Transcribe Date/Time: Jul 28 2020 7:56A Dictated by : DERIK WATERS MD This examination was interpreted and the report reviewed and electronically signed by: DERIK WATERS MD on Jul 28 2020 8:07AM EST Normal [facility] NUTRITIONon 07-27-2020 NUTRITION HNO ID: [id number] Author: Marcia Colin RD Service: Nutrition Therapy Author Type: Registered Dietitian Type: Nutrition Filed: 07/27/2020 3:16 PM Note Text: NUTRITION THERAPY PROGRESS NOTE SERVICE DATE: 07/27/2020 SERVICE TIME: 3:00 PM Nutrition Assessment: Recommended Malnutrition Diagnosis: No Malnutrition Identified (07/27/20 1452 : Marcia Colin RD) Estimated kilocalorie needs: 2759-3700 Calorie Calculation Method: 25-30 kcals/kg Estimated protein needs (grams): 88-117 Grams protein determined by: 1.2-1.6 g/kg Care Plan: Continue current diet: Regular Supplements: Ensure Max BID Patient continues to eat all of his meals and take the Ensure. 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 He has had Covid but is now classified as resolved per ID. He is still on 7100. A repeat TTE is still pending. He has a low sodium lab value today which a resident attributes to SIADH. He also has anemia. Pain management is seeing him. Anthropometrics: Height: 175.3 cm (5' 9) Weight: 76.7 kg (169 lb 1.6 oz) Dosing Weight: 73 kg (160 lb 15 oz) Body mass index is 24.97 kg/m?. Normal Weight change percentage over time: - 10 over 8 months (not significant) Intake History: Current Intake: Greater than 75% estimated energy needs over: 10 days Current Diet: DIET REGULAR MNT Billing Type: Re-assess/15 min 2 units SIGNATURE: Marcia Colin RD PATIENT NAME: Khanh De La Vega DATE: July 27, 2020 TIME: 3:00 PM PAGER: [phone] Normal [facility] PROGRESSon 07-27-2020 PROGRESS HNO ID: [id number] Author: Stevo Bowens III Service: Infectious Disease Author Type: Physician Type: Progress Notes Filed: 07/27/2020 2:21 PM Note Text: PROGRESS NOTE INFECTIOUS DISEASE ASSESSMENT: 1) Tricuspid valve endocarditis- douglas valve. Culture negative. In IVDU patient. 2) Fevers- fever curve now downtrending. May have been drug fever with cefepime? 3) leukocytosis- downtrending 4) Liver lesion- awaiting MRI for further defining. May be liver abscess? 5) left shoulder pain- not concerned for septic joint 5) prior COVID- originally diagnosed on 06/29 with initial symptoms starting on 06/26. Had repeat positive but don't think this is clinically significant- likely late shedding but does not signify that he is still contagious. Out of isolation. RECOMMENDATIONS: Continue vancomycin and cipro- will plan to give six weeks of this combination. Stop=09/05 Monitor fever curve and WBC F/u MRI F/u repeat TTE. SUBJECTIVE: Interval Events: Dr. Galvez mentioned to me about focal shoulder pain in this patient.patient says present for past week. Deep painin left shoudler. Not worse with movement. Worsens with deep palpation. Better with warm compress. Otherwise feeling well. ROS No shaking chills No oral lesions No nausea or diarhea No rashes Medications: Reviewed OBJECTIVE: Physical Exam: BP 109/72 Pulse 91 Temp 37.8 ?C (100 ?F) (Oral) Resp 18 Ht 175.3 cm (5' 9) Wt 76.7 kg (169 lb 1.6 oz) SpO2 94% BMI 24.97 kg/m? Physical Exam No distress No thrush Heart is RRR without murmur Abdomen without tenderness. Bowel sounds normal. Extremities- passive range of motion is intact and does not cause pain. Point tenderness over where I expect supraspinatus to be. Not tender over joint. Lab data: WBC Date Value 07/27/2020 17.40 k/uL 07/26/2020 22.11 k/uL 07/25/2020 21.51 k/uL 07/24/2020 25.54 k/uL 07/23/2020 26.53 k/uL 02/10/2018 10.24 thou/cmm 04/23/2017 9.9 thou/cmm 04/21/2017 9.9 thou/cmm 04/17/2014 6.3 thou/cmm Platelet Count Date Value 07/27/2020 167 k/uL 07/26/2020 156 k/uL 07/25/2020 225 k/uL 07/24/2020 227 k/uL 07/23/2020 Comment: Platelets Clumped Estimate Normal. 02/10/2018 299 thou/cmm 04/23/2017 365 thou/cmm 04/21/2017 343 thou/cmm 04/17/2014 305 thou/cmm Creatinine (mg/dL) Date Value 07/27/2020 0.77 07/26/2020 0.83 07/25/2020 0.78 07/24/2020 0.85 07/23/2020 0.76 02/10/2018 0.92 04/23/2017 0.81 04/21/2017 0.88 04/17/2014 0.83 Vancomycin (ug/mL) Date Value 07/23/2020 18.5 07/21/2020 23.1 07/20/2020 17.4 07/19/2020 10.9 AST (U/L) Date Value 07/17/2020 27 04/23/2017 26 ALT (U/L) Date Value 07/17/2020 13 04/23/2017 30 All blood cultures have been no growth SIGNATURE: Stevo Bowens III, MD PATIENT NAME: Khanh De La Vega DATE: July 27, 2020 TIME: 2:11 PM PAGER/CONTACT #: [phone] [facility] PROGRESS HNO ID: [id number] Author: Marilyn Graham Service: Pain Management Author Type: Physician Type: Progress Notes Filed: 07/27/2020 8:47 AM Note Text: Name: KHANH DE LA VEGA Age: [age] year old PAIN MANAGEMENT: Back pain, TV endocarditis, IVDA; opiate dependent Pain Description: Comfortable when seen earlier; some back pain. Ambulating okay Interval HPI: T-max to 38.3. Room air 95%. Denies respiratory symptoms; COVID isolation discontinued; resolved 07/25 A/P CT indeterminate 0.7 cm single lesion anterior right hepatic; MRI pending 07/[address] unremarkable Blood cultures remain negative. Remains on vancomycin plus cefepime. Repeat blood cultures 07/23. Repeat TTE later this week per ID 24H Comfort Meds: Tylenol 650 mg x 2 Methadone 10 mg twice daily x2 Methadone 5 mg x 3 Antibiotic Therapy: Cipro, vancomycin Subjective HPI: 35-year-old male with history of active IVDA (heroin, fentanyl, methamphetamine-daily times years), hepatitis C presented to [facility] 07/13 with worsening fatigue, fevers. Patient was noted to have leukocytosis; urine drug screen positive for opiates and amphetamines. TTE demonstrated 0.5 x 1 cm tricuspid valve vegetation. Patient was started on IV vancomycin and Zosyn. He was briefly treated with Suboxone for opiate withdrawal. He was transferred to [facility] 07/17 for evaluation by CTS for possible surgery. Patient states he last used IV heroin and methamphetamine on 07/13. He was intolerant of Suboxone in the past due to GI upset. He had been on it for about 3 months 5 years ago. He has not been on methadone maintenance. He complains of back pain as well as some mild withdrawal symptoms. OARRS Review: 1 prescription [place] 5/325 #10 Current Facility-Administered Medications Medication Dose Route Frequency Provider Last Rate Last Dose - iv contrast (radiology procedure) INTRAVENOUS DIRECTED PRN Stevo Crenshawford III - ciprofloxacin iv piggyback 400 mg in D5W 200 mL (CIPRO) 400 mg INTRAVENOUS q 12 H Stevo Posada Dumford III 200 mL/hr at 07/26/20 2046 400 mg at 07/26/202045 - perflutren lipid microspheres 1.1 mg/mL 1.3 mL injection (DEFINITY) 1.3 mL INTRAVENOUS DIRECTED PRN Stevo Posada Dumford III - iv contrast (radiology procedure) INTRAVENOUS DIRECTED PRN Stevo Crenshawford III - perflutren lipid microspheres 1.1 mg/mL 1.3 mL injection (DEFINITY) 1.3 mL INTRAVENOUS DIRECTED PRN Nishad (Res) Barve - methadone 10 mg tab(s) (DOLOPHINE) 10 mg ORAL BID Heike (Rodríguez) MD Floyd 10 mg at 07/26/202044 - sodium chloride 0.9 % (flush) 10 mL (BD POSIFLUSH) 10 mL INTRAVENOUS q 12 H eHike (Rodríguez) MD Floyd 10 mL at 07/26/202045 - sodium chloride 0.9 % (flush) 20 mL (BD POSIFLUSH) 20 mL INTRAVENOUS PRN Heike (Rodríguez) MD Floyd - bisacodyl 10 mg suppository (DULCOLAX) 10 mg RECTAL DAILY PRN Heike (Rodríguez) MD Floyd 10 mg at 07/26/20 1000 - prochlorperazine 10 mg tab(s) (COMPAZINE) 10 mg ORAL q 6 H PRN Heike (Rodríguez) MD Floyd - vancomycin iv piggyback 1.5 g in D5W 250 mL (VANCOCIN) 1.5 g INTRAVENOUS q 8 H Heike (Rodríguez) MD Floyd 250 mL/hr at 07/26/20 233 1.5 g at 07/26/20 233 - senna-docusate 8.6-50 mg 2 tablet (SENNA-S) 2 tablet ORAL BID Heike (Rodríguez) MD Floyd 2 tablet at 07/26/202044 - polyethylene glycol 3350 17 g packet (MIRALAX, GLYCOLAX) 17 g ORAL DAILY Heike (Rodríguez) MD Floyd 17 g at 07/26/20905 - nicotine 14 mg/24 hr 1 Patch (NICODERM) 1 Patch TRANSDERMAL DAILY Heike (Rodríguez) MD Floyd 1 Patch at 07/26/20904 And - nicotine -- REMOVE patch OTHER DAILY Heike (Rodríguez) MD Floyd And - nicotine - verify patch OTHER q 8 H Heike (Rodríguez) MD Floyd - vancomycin dosing and monitoring per pharmacy OTHER As Directed Heike (Rodríguez) MD Floyd - enoxaparin 40 mg injection (LOVENOX) 40 mg SUBCUTANEOUS DAILY Heike (Rodríguez) MD Floyd 40 mg at 07/26/20904 - ondansetron 4 mg tab(s) (ZOFRAN) 4 mg ORAL q 6 H PRN Heike Quevedo) MD Flyod 4 mg at 10/27/20 0920 Or - ondansetron (PF) 4 mg injection (ZOFRAN) 4 mg INTRAVENOUS q 6 H PRN Heike (Res) MD Floyd 4 mg at 07/23/20 0813 - acetaminophen 650 mg tab(s) (TYLENOL) 650 mg ORAL q 6 H PRN Heike (Res) MD Floyd 650 mg at 07/26/202044 - hydrOXYzine HCl 50 mg tab(s) (ATARAX) 50 mg ORAL q 6 H PRN Heike (Rodríguez) MD Floyd 50 mg at 07/23/20 1317 No medications prior to admission. Social History Tobacco Use - Smoking status: Current Every Day Smoker Packs/day: 1.00 Types: Cigarettes - Smokeless tobacco: Never Used Substance Use Topics - Alcohol use: Yes Comment: socially - Drug use: Yes Types: Crystal Meth, Marijuana, Heroin, Amphetamines Comment: pt does inject No family history on file. PAST SURGICAL HISTORY Procedure Laterality Date - IR VASCULAR ACCESS TEAM PICC INSERTION RADIO 07/23/2020 - ORTHOPEDICS SURGERY HX Right pins placed in right hand ROS: All of the following reviewed and negative except as noted below: Significant for HPI GENERAL: no fever, chills, sweats, weight loss, fatigue, generalized weakness HEENT: no headache, vision changes, eye discomfort, hearing change, ear discomfort, sinus pain, nasal discharge or congestion, oral lesions, soreness, dental problem NECK: no adenopathy, discomfort, change in ROM CHEST: no shortness of breath, dyspnea on exertion, wheezing, cough, sputum production or chest pain HEART: no chest pain, palpitations, syncope ABDOMEN: no nausea, vomiting, constipation, diarrhea, abdominal pain : no dysuria, urgency, frequency, history of stones, incontinence NEURO: no confusion or alteration in consciousness, slurred speech, seizure, focal weakness EXTREMITIES: no new pain, edema, change in ROM HEME: no new adenopathy, bruises, petechiae PSYCH: no depression, anxiety, agitation PAIN PSYCHIATRIC EXAM: GENERAL: alert, oriented to person, place, time JUDGMENT AND INSIGHT: intact APPEARANCE: neatly groomed DEMEANOR: coooperative, not hostile, mistrustful, preoccupied, or demanding ACTIVITY: normal, not hyperactive or hypoactive, no tremors, tics EYE CONTACT: normal SPEECH: normal, rate, volume, articulation, coherence, spontaneity MOOD: normal, without overt sadness, grief, anxiety, appropriate to situation IDEATION: Deferred MEMORY: intact PHYSICAL EXAMINATION: GENERAL: well nourished and developed; no acute distress; alert and oriented x 3; intact judgement and insight HEENT: no evidence of trauma; cranial nerves intact; eyes clear EOMI; no hearing deficits apparent; nasal passages unremarkable; throat and mucous membranes clear NECK: supple without lymphadenopathy; no JVD; no thyromegaly CHEST: clear bilaterally to auscultation; normal chest movement; no rales or rhonchi HEART: regular rate and rhythm, 2/6 systolic murmur ABDOMEN: soft; nondistended; bowel sounds present; no hepatomegaly; no splenomegaly; no tenderness EXTREMITIES: no evidence of clubbing; no cyanosis; no deformity; no joint effusion; no edema NEURO: cranial nerves intact; no focal deficits; no confusion; no tremor; sensorium normal SKIN: no rash; no skin breakdown; no decubitus lesions HEME: no bruising; no adenopathy PSYCH: no evidence of depression; no anxiety; no agitation; no apparent hallucinations BP 109/72 Pulse 91 Temp 37.8 ?C (100 ?F) (Oral) Resp 18 Ht 175.3 cm (5' 9) Wt 76.7 kg (169 lb 1.6 oz) SpO2 94% BMI 24.97 kg/m? BMI 24.97 kg/(m2) ABNORMAL/NEW FINDINGS: NONE RADIOLOGY/DIAGNOSTICS: LABORATORY: CBC: Recent Labs 07/27/20 0410 WBC 17.40* RBC 3.57* HB 9.4* HCT 29.6* PLT 167 MCV 82.9 MCH 26.3 MPV 11.3 CMP: Recent Labs 07/27/20 0410 NA 128* K 4.1 CHLOR 91* CO2 29 BUN 10 CREAT 0.77 GLUC 91 CA 8.6 ANION 8* Heme: No results for input(s): RETICP, ABSRETIC, LD, YEIMY, FE, TIBC, TRANSFERSAT in the last 24 hours. 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 Repeat blood cultures pending. Repeat TTE later this week per ID Indeterminate hepatic lesion on CT; MRI pending Continue IV vancomycin and Cipro Status post prior Suboxone taper at initial presentation at [facility]. Ongoing complaints of back pain-overall improving, Defer any work-up to primary service. Schedule methadone 10 mg twice tid with plans to taper over the next few weeks Discontinue methadone breakthrough dose Patient not interested in Suboxone; intolerant of it in the past due to GI upset Now Covid positive;initially positive on 06/30/2020; now resolved per ID. Isolation removed Disposition pending; plans for halfway facility noted. Will provide methadone taper prescription Marilyn Graham MD ADDENDUM: Portions of this note were copied so as to provide important historical information essential in contributing to medical decision making today. ADDENDUM: Even the portions of this note that were copied have been reviewed completely and edited so as to result in a note that most accurately reflects my complete evaluation today. Normal [facility] PROGRESS HNO ID: [id number] Author: Fortunato Corcoran Service: Hospital Medicine Author Type: Resident Type: Progress Notes Filed: 07/27/2020 11:37 AM Note Text: Attestation signed by Julee Galvez at 07/27/2020 6:14 PM Discussed with team, chart and orders reviewed. Discussed also with Dr. Bowens. Pt seen and evaluated today at 1430, he was ambulating about in room, had just shaved and washed, up, looked and acted well. Had no complaints, understood plan for MRI and echo (neither had yet been done). Disposition - as below, await echo and MRI. May need CTS eval pending result of echo (can now have GRICELDA as needed, Covid has resolved). Attending Note I personally saw and examined the patient. I reviewed the resident's note. I agree with the resident's assessment and plan unless otherwise noted. Signature: Julee Gavlez MD Date: 07/27/2020 Time: 6:14 PM HOUSE MEDICINE SERVICE PROGRESS NOTE SERVICE DATE: July 27, 2020 NIGHT AND WEEKEND COVERAGE: From 6 AM to 5 PM: You may reach the House Medicine sales and marketing intern currently assigned to this patient by finding their pager number on the treatment team (they will be assigned as the sales and marketing intern or resident). It is the last four digits in the phone number beginning with ([phone]). We encourage the use of [employer] Secure Chat. SUBJECTIVE HPI: Patient is a 35 yr male who is a chronic IVDU since 2009 and Hep C positive ( antibody positive on 11/23/19), presented to the [facility] for chronic fatigue on 07/13/20. He was found to have opiate withdrawal symptoms and had spiking fevers maximum temp being 102 F, raised WBC and negative blood cultures (07/15). His urine tox was positive for opiates, amphetamines and opiates. 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 ID consultation was done and his zosyn was switched to cefepime. He was treated for b with buprenorphine which was tapered. ? He was found to be negative for HIV and Hep B and his WBCs started trending down, however he still spiked fevers. Repeat blood cultures on 07/15 were sent which is still pending. He was transferred to [facility] for CT surgery evaluation for possible surgery for his IE. ? At the time of admission, patient was febrile 102 F. Complained of global pain. He admitted to intermittent abdominal discomfort and said he had been constipated for 3 days. He denied any chest pain, palpitations, lightheadedness, or bilateral LL swelling. He said his last IVDU was on Thursday morning (07/13/20) before he presented to the hospital. He denied the use of leg veins for the same. ? CTS saw the patient and recommend a GRICELDA for further evaluation. However given his return to covid positive status, that may be delayed. ID was also following the patient and they recommended starting him on vanc plus cefepime. His blood Cxs from here as well as [facility] have been negative as per Dr Bowens's note on 07/19. ? Of note, he was covid positive on 06/29/20 however he was tested negative during his hospital admission in [place]. However his COVID result again came positive and he moved to isolation laird. Patient was initially supposed to get a GRICELDA done however it got delayed due to his COVID status. Id were suspecting drug fever, hence Abx was changed from cefepime to ciprofloxacin. CT a/p showed a lesion in the liver for which MRI was ordered. Interval Events: Repeat TTE pending. Teichoic acid and ASO Abs still pending(07/22). Tried calling [facility] for the same yesterday. Couldn't reach them. MRI pending. OBJECTIVE Medications: IV Infusions: Scheduled: - ciprofloxacin, 400 mg, q 12 H - methadone, 10 mg, BID - sodium chloride 0.9 % (flush), 10 mL, q 12 H - vancomycin, 1.5 g, q 8 H - senna-docusate, 2 tablet, BID - polyethylene glycol 3350, 17 g, DAILY - nicotine, 1 Patch, DAILY And - nicotine -- REMOVE patch, , DAILY And - nicotine - verify patch, , q 8 H - vancomycin dosing and monitoring per pharmacy, , As Directed - enoxaparin, 40 mg, DAILY PRN: - iv contrast, , DIRECTED PRN - perflutren lipid microspheres, 1.3 mL, DIRECTED PRN - iv contrast, , DIRECTED PRN - perflutren lipid microspheres, 1.3 mL, DIRECTED PRN - sodium chloride 0.9 % (flush), 20 mL, PRN - bisacodyl, 10 mg, DAILY PRN - prochlorperazine, 10 mg, q 6 H PRN - ondansetron, 4 mg, q 6 H PRN Or - ondansetron (PF), 4 mg, q 6 H PRN - acetaminophen, 650 mg, q 6 H PRN - hydrOXYzine HCl, 50 mg, q 6 H PRN Vital Signs: BP 109/72 Pulse 91 Temp (Src) 100 (Oral) Resp 18 Ht 5' 9 (1.75m) Wt 169 lb 1.6 oz (76.7kg) SpO2 94% BMI 24.96 kg/(m2). O2 Therapy: Room Air Patient Vitals for the past 24 hrs: Pulse BP 07/27/20 0700 91 109/72 07/26/20 1900 90 120/80 07/26/20 1514 (!) 55 110/70 Physical Exam Constitutional: No distress. Cardiovascular: Normal rate, regular rhythm, normal heart sounds and intact distal pulses. Exam reveals no friction rub. No murmur heard. Pulmonary/Chest: Effort normal and breath sounds normal. No respiratory distress. He has no wheezes. Abdominal: Soft. There is no abdominal tenderness. Musculoskeletal: General: No edema. Comments: Shoulder pain. Lymphadenopathy: He has no cervical adenopathy. Neurological: He is alert. Lines, Drains, and Airways Line Central Line Single Lumen 07/23/20 1447 Peripherally Inserted (PICC) Right Arm 4.0 Bangladeshi 3 days Reviewed lines and needs to be continued: REASONS: Intravenous antibiotics Labs: CBC: Recent Labs 07/27/20 0410 07/26/20 0317 07/25/20 0558 07/24/20 0451 07/23/20 0610 07/22/20 0323 07/21/20 0559 WBC 17.40* 22.11* 21.51* 25.54* 26.53* 22.21* 21.81* HB 9.4* 9.7* 9.5* 10.0* 9.9* 10.5* 10.3* HCT 29.6* 29.8* 30.1* 30.1* 30.9* 33.3* 31.9* PLT 167 156 225 227 -- 265 243 MCV 82.9 81.0 83.6 82.9 83.3 85.2 83.9 RDWCV 14.2 14.5 14.2 14.3 14.1 13.8 13.9 NEUTP -- -- -- -- -- 70.2 -- ABSNEUT -- -- -- -- -- 15.60* -- LYMPHP -- -- -- -- -- 17.1 -- MONOP -- -- -- -- -- 8.5 -- COAG: No results for input(s): APTT, INR in the last 168 hours. BMP: Recent Labs 07/27/2040907/26/2031607/25/2055707/24/2045007/23/2010 07/22/203 07/21/20 0559 07/20/20 1548 GLUC 91 92 100* 100* 100* 110* 94 -- NA 128* 127* 129* 132* 127* 130* 128* 130* K 4.1 4.0 4.2 4.6 4.4 4.3 4.5 -- CHLOR 91* 92* 93* 94* 94* 92* 92* -- CO2 29 28 28 28 25 31* 27 -- ANION 8* 7* 8* 10 8* 7* 9 -- BUN 10 10 14 18 15 12 13 -- CREAT 0.77 0.83 0.78 0.85 0.76 0.72* 0.70* -- CHEM: Recent Labs 07/27/2040907/26/2031607/25/2055707/24/2045007/23/2010 07/22/203 07/21/20 0559 CA 8.6 8.6 8.5 8.6 8.8 8.7 8.8 HEPATIC: No results for input(s): ALKPHOS, ALT, AST, TBILI, LIPASE in the last 168 hours. URINALYSIS:No results for input(s): PH, SPGR, UGLUC, UBILI, UKET, UHB, UPROT, UROBIL, UWBC, SSA in the last 168 hours. Invalid input(s): NITR CARDIAC: No results for input(s): CKTEST, CKMB, CKMBP in the last 168 hours.TROPONIN@:8,No results found for: BNP:8)@ Intake/Output Summary (Last 24 hours) at 07/27/2020 0742 Last data filed at 07/26/2020 2300 Gross per 24 hour Intake 240 ml Output 250 ml Net -10 ml Serum creatinine: 0.83 mg/dL 07/26/20 0317 Estimated creatinine clearance: 123 mL/min Standardized Care Interventions: Labs: Routine blood work indicated for tomorrow on account of: suspected infection Assessment/Plan Problem List Infective endocarditis Methamphetamine dependence (HCC) Cannabis dependence (HCC) Nicotine use disorder, F17.2 IVDU (intravenous drug user) Fever Leucocytosis Hepatitis C antibody positive in blood Mild protein-calorie malnutrition (HCC) Hyponatremia 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 He is currently on vanc + cipro PICC line placed. TTE pending. Leukocytosis Lesion seen on theliver on CAT scan. MRI pending. No source is yet identified for his leukocytosis. ? Constipation On senna docusate and miralax. ? Hyponatremia(Euvolemic ) Was 128 today. Will continue to monitor for symptoms and monitor daily Na level. 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 . Anemia Likely anemia of chronic disease. Today's level was 9.4. ? Nicotine dependence. He is on a nicotine patch. ? H/o opioid use He is c/o pain in back and rarely shoulder likely due to opioid withdrawal. Pain management is on board. Anticoagulant AND Antiplatelet Medications (From admission, onward) Start Dose Route Frequency Ordered Stop 07/17/202099 enoxaparin 40 mg injection (LOVENOX) (Medical Risk Categories) 40 mg SUBCUTANEOUS DAILY 07/17/202044 -- VTE Prophylaxis: VTE prophylaxis appropriate GI Prophylaxis: Not indicated Telemetry: Not indicated Disposition: Extended care / halfway facility Code Status: Not on file Plan of care discussed with: Provider SIGNATURE: Fortunato Corcoran MD PATIENT NAME: Khanh De La Vega DATE: July 27, 2020 TIME: 7:42 AM Page 0817 Normal [facility] VANCOMYCINon 07-27-2020 Vancomycin [Mass/Vol] 22.9 ug/mL High 10.0-20.0 [facility] Comment on above: Order Comment: Speci men Type: BLOOD SPECIMEN Result Comment: Refe rence ranges and high/low indicator flags are provided as general guidelines only. The treating physician must determine appropriate target levels/dosing based on the specific clinical situation. Performed By: #### 9 4500-6 #### [facility] CLIA [id number] [address] [place] [address] ALLIED HEALTHon 07-26-2020 ALLIED HEALTH HNO ID: [id number] Author: Tess IrahetaRtAngela Blanca Service: Radiology Author Type: Steam Cleaning Machine Operator Type: Allied Health Filed: 07/26/2020 7:19 PM Note Text: Called for MRI safety screening form. [id number] Normal [facility] Bas Metab 2000 Pnl SerPlon 1 Anion gap [Moles/Vol] 7 mmol/L Low 9-18 [facility] Comment on above: Order Comment: Speci men Type: BLOOD SPECIMEN Performed By: #### 9 4500-6 #### [facility] CLIA [id number] [address] [place] [address] Calcium [Mass/Vol] 8.6 mg/dL Normal 8.5-10.2 [facility] Comment on above: Order Comment: Speci men Type: BLOOD SPECIMEN Performed By: #### 9 4500-6 #### [facility] CLIA [id number] [address] [place] [address] Chloride [Moles/Vol] 92 mmol/L Low 97-105 [facility] Comment on above: Order Comment: Speci men Type: BLOOD SPECIMEN Performed By: #### 9 4500-6 #### [facility] CLIA [id number] [address] [place] [address] CO2 [Moles/Vol] 28 mmol/L Normal 22-30 [facility] Comment on above: Order Comment: Speci men Type: BLOOD SPECIMEN Performed By: #### 9 4500-6 #### [facility] CLIA [id number] [address] [place] [address] Creatinine [Mass/Vol] 0.83 mg/dL Normal 0.73-1.22 [facility] Comment on above: Order Comment: Speci men Type: BLOOD SPECIMEN Performed By: #### 9 4500-6 #### [facility] CLIA [id number] [address] [place] [address] GFR/1.73 sq M.predicted MDRD (S/P/Bld) [Vol rate/Area] mL/min/{1.73_m2} Normal [facility] Comment on above: Order Comment: Speci men Type: BLOOD SPECIMEN Result Comment: >60 eGFR (Estimated GFR) Units of measure: mL/min/1.73 meters squared eGFR is derived from the reexpressed MDRD Study equation using the following parameters: serum creatinine, age, gender and race. The creatinine assay has been calibrated to be traceable to IDMS. An eGFR <60 mL/min/1.73m2 for >3 months is consistent with chronic kidney disease. Refer to KDOQI guidelines for clinical interpretation. In patients with unstable renal function, e.g. those with acute kidney injury, the eGFR may not accurately reflect actual GFR. Performed By: #### 9 4500-6 #### [facility] CLIA [id number] [address] [place] [address] Glucose [Mass/Vol] 92 mg/dL Normal 74-99 [facility] Comment on above: [facility]: [facility] Type: BLOOD SPECIMEN Result Comment: The [employer] Diabetes Association (ADA) provides guidance for cutoff values for fasting glucose and random glucose. The ADA defines fasting as no caloric intake for at least 8 hours. Fasting plasma glucose results between 100 to 125 mg/dL indicate increased risk for diabetes (prediabetes). Fasting plasma glucose results greater than or equal to 126 mg/dL meet the criteria for diagnosis of diabetes. In the absence of unequivocal hyperglycemia, results should be confirmed by repeat testing. In a patient with classic symptoms of hyperglycemia or hyperglycemic crisis, random plasma glucose results greater than or equal to 200 mg/dL meet the criteria for diagnosis of diabetes. Reference: Standards of Medical Care in Diabetes 2016, [employer] Diabetes Association. Diabetes Care. 2016.39(Suppl 1). Performed By: #### 9 4500-6 #### [facility] CLIA [id number] [address] [place] [address] Potassium [Moles/Vol] 4.0 mmol/L Normal 3.7-5.1 [facility] Comment on above: Order Comment: Speci [facility] Type: BLOOD SPECIMEN Performed By: #### 9 4500-6 #### [facility] CLIA [id number] [address] [place] [address] Sodium [Moles/Vol] 127 mmol/L Low 136-144 [facility] Comment on above: Order Comment: Speci men Type: BLOOD SPECIMEN Performed By: #### 9 4500-6 #### [facility] CLIA [id number] [address] [place] [address] Urea nitrogen [Mass/Vol] 10 mg/dL Normal 9-24 [facility] Comment on above: Order Comment: Speci men Type: BLOOD SPECIMEN Performed By: #### 9 4500-6 #### [facility] CLIA [id number] [address] [place] [address] CBC (hemogram) Bld Autoon Erythrocyte distribution width (RBC) [Ratio] 14.5 % Normal 11.5-15.0 [facility] Comment on above: Order Comment: Speci men Type: BLOOD SPECIMEN Performed By: #### H ISTCL #### [facility] CLIA [id number] [address] [place] [address] Hematocrit (Bld) [Volume fraction] 29.8 % Low 39.0-51.0 [facility] Comment on above: Order Comment: Speci men Type: BLOOD SPECIMEN Performed By: #### H ISTCL #### [facility] CLIA [id number] [address] [place] [address] Hemoglobin (Bld) [Mass/Vol] 9.7 g/dL Low 13.0-17.0 [facility] Comment on above: Order Comment: Speci men Type: BLOOD SPECIMEN Performed By: #### H ISTCL #### [facility] CLIA [id number] [address] [place] [address] MCH (RBC) [Entitic mass] 26.4 pg Normal 26.0-34.0 [facility] Comment on above: Order Comment: Speci men Type: BLOOD SPECIMEN Performed By: #### H ISTCL #### [facility] CLIA [id number] [address] [place] [address] MCHC (RBC) [Mass/Vol] 32.6 g/dL Normal 30.5-36.0 [facility] Comment on above: Order Comment: Speci men Type: BLOOD SPECIMEN Performed By: #### H ISTCL #### [facility] CLIA [id number] [address] [place] [address] MCV (RBC) [Entitic vol] 81.0 fL Normal 80.0-100.0 [facility] Comment on above: Order Comment: Speci men Type: BLOOD SPECIMEN Performed By: #### H ISTCL #### [facility] CLIA [id number] [address] [place] [address] Nucleated RBC (Bld) [#/Vol] 10*3/uL Normal <0.01 [facility] Comment on above: Order Comment: Speci men Type: BLOOD SPECIMEN Performed By: #### H ISTCL #### [facility] CLIA [id number] [address] [place] [address] Platelet mean volume (Bld) [Entitic vol] 12.1 fL Normal 9.0-12.7 [facility] Comment on above: Order Comment: Speci men Type: BLOOD SPECIMEN Performed By: #### H ISTCL #### [facility] CLIA [id number] [address] [place] [address] Platelets (Bld) [#/Vol] 156 10*3/uL Normal 150-400 [facility] Comment on above: Order Comment: Speci men Type: BLOOD SPECIMEN Performed By: #### H ISTCL #### [facility] CLIA [id number] [address] [place] [address] RBC (Bld) [#/Vol] 3.68 10*6/uL Low 4.20-6.00 [facility] Comment on above: Order Comment: Speci men Type: BLOOD SPECIMEN Performed By: #### H ISTCL #### [facility] CLIA [id number] [address] [place] [address] WBC (Bld) [#/Vol] 22.11 10*3/uL High 3.70-11.00 [facility] Comment on above: Order Comment: Speci men Type: BLOOD SPECIMEN Performed By: #### H ISTCL #### [facility] CLIA [id number] [address] [place] [address] PLAN OF CAREon 07-26-2020 PLAN OF CARE HNO ID: [id number] Author: Stevo Bowens III Service: Infectious Disease Author Type: Physician Type: Plan of Care Filed: 07/26/2020 10:38 AM Note Text: Noted enhancing liver lesion on CT. Will order MRI to further assess. SIGNATURE: Stevo Bowens III, MD PATIENT NAME: Khanh De La Vega DATE: July 26, 2020 TIME: 10:38 AM PAGER/CONTACT #: [phone] Normal [facility] PROGRESSon 07-26-2020 PROGRESS HNO ID: [id number] Author: Stevo Bowens III Service: Infectious Disease Author Type: Physician Type: Progress Notes Filed: 07/26/2020 5:30 PM Note Text: PROGRESS NOTE INFECTIOUS DISEASE Active Antimicrobials (From admission, onward) Start Stop 07/19/20 1500 vancomycin iv piggyback 1.5 g in D5W 250 mL (VANCOCIN) 1.5 g, INTRAVENOUS, EVERY 8 HOURS -- 07/18/20 1300 cefepime 2 g in D5W 100 mL MB+ (MAXIPIME) 2 g, INTRAVENOUS, EVERY 8 HOURS -- 07/17/20 2100 vancomycin dosing and monitoring per pharmacy OTHER, DIRECTED -- ASSESSMENT: 1) Tricuspid valve endocarditis- douglas valve. Culture negative. In IVDU patient. 2) Fevers- persisting although patient looking well. May be downtrending now. 3) leukocytosis 4) prior COVID- originally diagnosed on 06/29 with initial symptoms starting on 06/26. Now positive on recheck again although not having symptoms of COVID. Out of isolation RECOMMENDATIONS: Continue vancomycin and cipro Monitor fever curve and WBC F/u MRI F/u repeat TTE. SUBJECTIVE: Interval Events: No chills or sweats with fevers. Overall feeling well. Stable chronic myalgias. ROS No shaking chills No oral lesions No cough or dyspnea No abdominal pain, nausea or diarrhea. Medications:Reviewed OBJECTIVE: Physical Exam: BP 110/70 Pulse (!) 55 Temp 36.5 ?C (97.7 ?F) (Oral) Resp 20 Ht 175.3 cm (5' 9) Wt 76.7 kg (169 lb 1.6 oz) SpO2 98% BMI 24.97 kg/m? Physical Exam Lying in bed in no distress No thrush Heart is RRR without murmur Lungs CTAB Abdomen soft, nontender (unchanged compared to 07/25 exam) Lab data: WBC Date Value 07/26/2020 22.11 k/uL 07/25/2020 21.51 k/uL 07/24/2020 25.54 k/uL 07/23/2020 26.53 k/uL 07/22/2020 22.21 k/uL 02/10/2018 10.24 thou/cmm 04/23/2017 9.9 thou/cmm 04/21/2017 9.9 thou/cmm 04/17/2014 6.3 thou/cmm Platelet Count Date Value 07/26/2020 156 k/uL 07/25/2020 225 k/uL 07/24/2020 227 k/uL 07/23/2020 Comment: Platelets Clumped Estimate Normal. 07/22/2020 265 k/uL 02/10/2018 299 thou/cmm 04/23/2017 365 thou/cmm 04/21/2017 343 thou/cmm 04/17/2014 305 thou/cmm Creatinine (mg/dL) Date Value 07/26/2020 0.83 07/25/2020 0.78 07/24/2020 0.85 07/23/2020 0.76 07/22/2020 0.72 02/10/2018 0.92 04/23/2017 0.81 04/21/2017 0.88 04/17/2014 0.83 Vancomycin (ug/mL) Date Value 07/23/2020 18.5 07/21/2020 23.1 07/20/2020 17.4 07/19/2020 10.9 AST (U/L) Date Value 07/17/2020 27 04/23/2017 26 ALT (U/L) Date Value 07/17/2020 13 04/23/2017 30 All blood cultures have been no growth SIGNATURE: Stevo Bowens III, MD PATIENT NAME: Khanh De La Vega DATE: July 26, 2020 TIME: 5:28 PM PAGER/CONTACT #: [phone] [facility] PROGRESS HNO ID: [id number] Author: Marilyn Graham Service: Pain Management Author Type: Physician Type: Progress Notes Filed: 07/26/2020 10:27 AM Note Text: Name: KHANH DE LA VEGA Age: [age] year old PAIN MANAGEMENT: Back pain, TV endocarditis, IVDA; opiate dependent Pain Description: Comfortably when seen earlier; some back pain. Ambulating okay Interval HPI: T-max to 38.3. Room air 95%. Denies respiratory symptoms; COVID isolation discontinued; resolved Blood cultures remain negative. Remains on vancomycin plus cefepime. Repeat blood cultures 07/23. Repeat TTE later this week per ID 24H Comfort Meds: Tylenol 650 mg x 1 Methadone 10 mg twice daily x2 Methadone 5 mg x 4 Antibiotic Therapy: Cefepime, vancomycin Subjective HPI: 35-year-old male with history of active IVDA (heroin, fentanyl, methamphetamine-daily times years), hepatitis C presented to [facility] 07/13 with worsening fatigue, fevers. Patient was noted to have leukocytosis; urine drug screen positive for opiates and amphetamines. TTE demonstrated 0.5 x 1 cm tricuspid valve vegetation. Patient was started on IV vancomycin and Zosyn. He was briefly treated with Suboxone for opiate withdrawal. He was transferred to [facility] 07/17 for evaluation by CTS for possible surgery. Patient states he last used IV heroin and methamphetamine on 07/13. He was intolerant of Suboxone in the past due to GI upset. He had been on it for about 3 months 5 years ago. He has not been on methadone maintenance. He complains of back pain as well as some mild withdrawal symptoms. OARRS Review: 1 prescription [place] 5/325 #10 Current Facility-Administered Medications Medication Dose Route Frequency Provider Last Rate Last Dose - ciprofloxacin iv piggyback 400 mg in D5W 200 mL (CIPRO) 400 mg INTRAVENOUS q 12 H Stevo M Dumford III 200 mL/hr at 07/26/20 1000 400 mg at 07/26/20 1000 - perflutren lipid microspheres 1.1 mg/mL 1.3 mL injection (DEFINITY) 1.3 mL INTRAVENOUS DIRECTED PRN Stevo Posada Dumford III - iv contrast (radiology procedure) INTRAVENOUS DIRECTED PRN Stevo Posada Dumford III And - enteric contrast (radiology procedure) ORAL DIRECTED PRN Stevo Posada Dumford III - perflutren lipid microspheres 1.1 mg/mL 1.3 mL injection (DEFINITY) 1.3 mL INTRAVENOUS DIRECTED PRN Nishad (Res) Barve - methadone 10 mg tab(s) (DOLOPHINE) 10 mg ORAL BID Heike (Res) MD Floyd 10 mg at 07/26/20 09 - sodium chloride 0.9 % (flush) 10 mL (BD POSIFLUSH) 10 mL INTRAVENOUS q 12 H Heike (Res) MD Floyd 10 mL at 07/26/20 1000 - sodium chloride 0.9 % (flush) 20 mL (BD POSIFLUSH) 20 mL INTRAVENOUS PRN Heike (Res) MD Floyd - bisacodyl 10 mg suppository (DULCOLAX) 10 mg RECTAL DAILY PRN Heike (Res) MD lFoyd 10 mg at 07/26/20 1000 - prochlorperazine 10 mg tab(s) (COMPAZINE) 10 mg ORAL q 6 H PRN Heike (Res) MD Floyd - vancomycin iv piggyback 1.5 g in D5W 250 mL (VANCOCIN) 1.5 g INTRAVENOUS q 8 H Hieke (Res) MD Floyd 250 mL/hr at 07/26/20905 1.5 g at 07/26/20905 - senna-docusate 8.6-50 mg 2 tablet (SENNA-S) 2 tablet ORAL BID Heike (Res) MD Floyd 2 tablet at 07/26/20904 - polyethylene glycol 3350 17 g packet (MIRALAX, GLYCOLAX) 17 g ORAL DAILY Heike (Res) MD Floyd 17 g at 07/26/20905 - methadone 5 mg tab(s) (DOLOPHINE) 5 mg ORAL q 4 H PRN Heike (Rodríguez) MD Floyd 5 mg at 07/26/20 0510 - nicotine 14 mg/24 hr 1 Patch (NICODERM) 1 Patch TRANSDERMAL DAILY Heike (Rodríguez) MD Floyd 1 Patch at 07/26/20904 And - nicotine -- REMOVE patch OTHER DAILY Heike (Rodríguez) MD Floyd And - nicotine - verify patch OTHER q 8 H Heike (Res) MD Floyd - vancomycin dosing and monitoring per pharmacy OTHER As Directed Heike (Rodríguez) MD Floyd - enoxaparin 40 mg injection (LOVENOX) 40 mg SUBCUTANEOUS DAILY Heike (Rodríguez) MD Floyd 40 mg at 07/26/20 0905 - ondansetron 4 mg tab(s) (ZOFRAN) 4 mg ORAL q 6 H PRN Heike Quevedo) MD [place] 4 mg at 07/24/20 0920 Or - ondansetron (PF) 4 mg injection (ZOFRAN) 4 mg INTRAVENOUS q 6 H PRN Heike Quevedo) MD Floyd 4 mg at 07/23/20 0813 - acetaminophen 650 mg tab(s) (TYLENOL) 650 mg ORAL q 6 H PRN Heike (Rodríguez) MD Floyd 650 mg at 07/26/20 0906 - hydrOXYzine HCl 50 mg tab(s) (ATARAX) 50 mg ORAL q 6 H PRN Heike Quevedo) MD Floyd 50 mg at 07/23/20 1317 No medications prior to admission. Social History Tobacco Use - Smoking status: Current Every Day Smoker Packs/day: 1.00 Types: Cigarettes - Smokeless tobacco: Never Used Substance Use Topics - Alcohol use: Yes Comment: socially - Drug use: Yes Types: Crystal Meth, Marijuana, Heroin, Amphetamines Comment: pt does inject No family history on file. PAST SURGICAL HISTORY Procedure Laterality Date - IR VASCULAR ACCESS TEAM PICC INSERTION RADIO 07/23/2020 - ORTHOPEDICS SURGERY HX Right pins placed in right hand ROS: All of the following reviewed and negative except as noted below: Significant for HPI GENERAL: no fever, chills, sweats, weight loss, fatigue, generalized weakness HEENT: no headache, vision changes, eye discomfort, hearing change, ear discomfort, sinus pain, nasal discharge or congestion, oral lesions, soreness, dental problem NECK: no adenopathy, discomfort, change in ROM CHEST: no shortness of breath, dyspnea on exertion, wheezing, cough, sputum production or chest pain HEART: no chest pain, palpitations, syncope ABDOMEN: no nausea, vomiting, constipation, diarrhea, abdominal pain : no dysuria, urgency, frequency, history of stones, incontinence NEURO: no confusion or alteration in consciousness, slurred speech, seizure, focal weakness EXTREMITIES: no new pain, edema, change in ROM HEME: no new adenopathy, bruises, petechiae PSYCH: no depression, anxiety, agitation PAIN PSYCHIATRIC EXAM: GENERAL: alert, oriented to person, place, time JUDGMENT AND INSIGHT: intact APPEARANCE: neatly groomed DEMEANOR: coooperative, not hostile, mistrustful, preoccupied, or demanding ACTIVITY: normal, not hyperactive or hypoactive, no tremors, tics EYE CONTACT: normal SPEECH: normal, rate, volume, articulation, coherence, spontaneity MOOD: normal, without overt sadness, grief, anxiety, appropriate to situation IDEATION: Deferred MEMORY: intact PHYSICAL EXAMINATION: GENERAL: well nourished and developed; no acute distress; alert and oriented x 3; intact judgement and insight HEENT: no evidence of trauma; cranial nerves intact; eyes clear EOMI; no hearing deficits apparent; nasal passages unremarkable; throat and mucous membranes clear NECK: supple without lymphadenopathy; no JVD; no thyromegaly CHEST: clear bilaterally to auscultation; normal chest movement; no rales or rhonchi HEART: regular rate and rhythm, 2/6 systolic murmur ABDOMEN: soft; nondistended; bowel sounds present; no hepatomegaly; no splenomegaly; no tenderness EXTREMITIES: no evidence of clubbing; no cyanosis; no deformity; no joint effusion; no edema NEURO: cranial nerves intact; no focal deficits; no confusion; no tremor; sensorium normal SKIN: no rash; no skin breakdown; no decubitus lesions HEME: no bruising; no adenopathy PSYCH: no evidence of depression; no anxiety; no agitation; no apparent hallucinations BP 103/66 Pulse 63 Temp (!) 38.3 ?C (100.9 ?F) (Oral) Resp 18 Ht 175.3 cm (5' 9) Wt 76.7 kg (169 lb 1.6 oz) SpO2 96% BMI 24.97 kg/m? BMI 24.97 kg/(m2) ABNORMAL/NEW FINDINGS: NONE RADIOLOGY/DIAGNOSTICS: LABORATORY: CBC: Recent Labs 07/26/20316 WBC 22.11* RBC 3.68* HB 9.7* HCT 29.8* PLT 156 MCV 81.0 MCH 26.4 MPV 12.1 CMP: Recent Labs 07/26/20316 NA 127* K 4.0 CHLOR 92* CO2 28 BUN 10 CREAT 0.83 GLUC 92 CA 8.6 ANION 7* Heme: No results for input(s): RETICP, ABSRETIC, LD, YEIMY, FE, TIBC, TRANSFERSAT in the last 24 hours. 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 Repeat blood cultures pending. Repeat TTE later this week per ID Continue IV vancomycin and cefepime. Status post prior Suboxone taper at initial presentation at [facility]. Ongoing complaints of back pain, Defer any work-up to primary service. Schedule methadone 10 mg twice tid with plans to taper over the next few weeks Discontinue methadone breakthrough dose Patient not interested in Suboxone; intolerant of it in the past due to GI upset Now Covid positive;initially positive on 06/30/2020; now resolved per ID. Isolation removed Disposition pending; plans for halfway facility noted. Will provide methadone taper prescription Marilyn Graham MD ADDENDUM: Portions of this note were copied so as to provide important historical information essential in contributing to medical decision making today. ADDENDUM: Even the portions of this note that were copied have been reviewed completely and edited so as to result in a note that most accurately reflects my complete evaluation today. Normal [facility] PROGRESS HNO ID: [id number] Author: Fortunato Corcoran Service: Hospital Medicine Author Type: Resident Type: Progress Notes Filed: 07/26/2020 12:18 PM Note Text: Attestation signed by Julee Galvez at 07/27/2020 7:44 AM Discussed with team, chart reviewed. Pt seen and evaluated on 07/26 at 1140, he was sitting up at the side of the bed, looked well, asked for chocolate ice cream (I could only find vanilla and orange sherankita, but he was happy with same). Still has pain left upper shoulder posterior to clavicle, 'if you press your finger in here it hurts', but has no other pain complaints. Pt understands plan of care, needs another echo, needs MRI of abdomen per ID. Disposition - as below and above, await final plan of care from ID, may need CTS eval and GRICELDA pending repeat TTE. Attending Note I personally saw and examined the patient. I reviewed the resident's note. I agree with the resident's assessment and plan unless otherwise noted. Signature: Julee Galvez MD Date: 07/27/2020 Time: 7:36 AM HOUSE MEDICINE SERVICE PROGRESS NOTE SERVICE DATE: July 26, 2020 NIGHT AND WEEKEND COVERAGE: From 6 AM to 5 PM: You may reach the House Medicine sales and marketing intern currently assigned to this patient by finding their pager number on the treatment team (they will be assigned as the sales and marketing intern or resident). It is the last four digits in the phone number beginning with ([phone]). We encourage the use of [employer] Secure Chat. SUBJECTIVE HPI: Patient is a 35 yr male who is a chronic IVDU since 2009 and Hep C positive ( antibody positive on 11/23/19), presented to the [facility] for chronic fatigue on 07/13/20. He was found to have opiate withdrawal symptoms and had spiking fevers maximum temp being 102 F, raised WBC and negative blood cultures (07/15). His urine tox was positive for opiates, amphetamines and opiates. 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 ID consultation was done and his zosyn was switched to cefepime. He was treated for b with buprenorphine which was tapered. ? He was found to be negative for HIV and Hep B and his WBCs started trending down, however he still spiked fevers. Repeat blood cultures on 07/15 were sent which is still pending. He was transferred to [facility] for CT surgery evaluation for possible surgery for his IE. ? At the time of admission, patient was febrile 102 F. Complained of global pain. He admitted to intermittent abdominal discomfort and said he had been constipated for 3 days. He denied any chest pain, palpitations, lightheadedness, or bilateral LL swelling. He said his last IVDU was on Thursday morning (07/13/20) before he presented to the hospital. He denied the use of leg veins for the same. ? CTS saw the patient and recommend a GRICELDA for further evaluation. However given his return to covid positive status, that may be delayed. ID was also following the patient and they recommended starting him on vanc plus cefepime. His blood Cxs from here as well as [facility] have been negative as per Dr Bowens's note on 07/19. ? Of note, he was covid positive on 06/29/20 however he was tested negative during his hospital admission in [place]. However his COVID result again came positive and he moved to isolation laird. Patient was initially supposed to get a GRICELDA done however it got delayed due to his COVID status. Interval Events: Repeat TTE pending. Teichoic acid and ASO Abs still pending. Tried calling [facility] for the same. Couldn't reach them. ID changed his Ab from cefepime to cipro for concern of drug fever. Patient did not have any documented fever over night, however he did report perceived fever. He had an episode of fever today morning and was given tylenol. He does report pain in his left shoulder which increases on deep palpation. OBJECTIVE Medications: IV Infusions: Scheduled: - ciprofloxacin, 400 mg, q 12 H - methadone, 10 mg, BID - sodium chloride 0.9 % (flush), 10 mL, q 12 H - vancomycin, 1.5 g, q 8 H - senna-docusate, 2 tablet, BID - polyethylene glycol 3350, 17 g, DAILY - nicotine, 1 Patch, DAILY And - nicotine -- REMOVE patch, , DAILY And - nicotine - verify patch, , q 8 H - vancomycin dosing and monitoring per pharmacy, , As Directed - enoxaparin, 40 mg, DAILY PRN: - perflutren lipid microspheres, 1.3 mL, DIRECTED PRN - iv contrast, , DIRECTED PRN And - enteric contrast, , DIRECTED PRN - perflutren lipid microspheres, 1.3 mL, DIRECTED PRN - sodium chloride 0.9 % (flush), 20 mL, PRN - bisacodyl, 10 mg, DAILY PRN - prochlorperazine, 10 mg, q 6 H PRN - methadone, 5 mg, q 4 H PRN - ondansetron, 4 mg, q 6 H PRN Or - ondansetron (PF), 4 mg, q 6 H PRN - acetaminophen, 650 mg, q 6 H PRN - hydrOXYzine HCl, 50 mg, q 6 H PRN Vital Signs: BP 134/85 Pulse 87 Temp (Src) 98.2 (Oral) Resp 20 Ht 5' 9 (1.75m) Wt 169 lb 1.6 oz (76.7kg) SpO2 100% BMI 24.96 kg/(m2). O2 Therapy: Room Air Patient Vitals for the past 24 hrs: Pulse BP 07/25/20 1911 87 134/85 Physical Exam Constitutional: He is well-developed, well-nourished, and in no distress. Cardiovascular: Normal rate, regular rhythm and normal heart sounds. No murmur heard. Pulmonary/Chest: Effort normal and breath sounds normal. No respiratory distress. He has no wheezes. Abdominal: Soft. There is abdominal tenderness. In LLQ Musculoskeletal: General: No edema. Comments: Pain on deep palpation in the supraclavicular area of the left shoulder. Lymphadenopathy: He has no cervical adenopathy. Neurological: He is alert. Lines, Drains, and Airways Line Central Line Single Lumen 07/23/20 1447 Peripherally Inserted (PICC) Right Arm 4.0 Bangladeshi 2 days Reviewed lines and needs to be continued: REASONS: Intravenous antibiotics Labs: CBC: Recent Labs 07/26/20 0317 07/25/20 0558 07/24/20 0451 07/23/20 0610 07/22/20 0323 07/21/20 0559 07/20/20 0554 WBC 22.11* 21.51* 25.54* 26.53* 22.21* 21.81* 19.91* HB 9.7* 9.5* 10.0* 9.9* 10.5* 10.3* 10.1* HCT 29.8* 30.1* 30.1* 30.9* 33.3* 31.9* 30.9* PLT 156 225 227 -- 265 243 229 MCV 81.0 83.6 82.9 83.3 85.2 83.9 83.7 RDWCV 14.5 14.2 14.3 14.1 13.8 13.9 13.8 NEUTP -- -- -- -- 70.2 -- -- ABSNEUT -- -- -- -- 15.60* -- -- LYMPHP -- -- -- -- 17.1 -- -- MONOP -- -- -- -- 8.5 -- -- COAG: No results for input(s): APTT, INR in the last 168 hours. BMP: Recent Labs 07/26/2031607/25/2055707/24/201 07/23/20 0610 07/22/20 0323 07/21/20 0559 07/20/20 1548 07/20/20 0554 GLUC 92 100* 100* 100* 110* 94 -- 106* NA 127* 129* 132* 127* 130* 128* 130* 126* K 4.0 4.2 4.6 4.4 4.3 4.5 -- 4.2 CHLOR 92* 93* 94* 94* 92* 92* -- 92* CO2 28 28 28 25 31* 27 -- 28 ANION 7* 8* 10 8* 7* 9 -- 6* BUN 10 14 18 15 12 13 -- 16 CREAT 0.83 0.78 0.85 0.76 0.72* 0.70* -- 0.73 CHEM: Recent Labs 07/26/2031607/25/2058 07/24/201 07/23/20 0610 07/22/20 0323 07/21/20 0559 07/20/20 0554 CA 8.6 8.5 8.6 8.8 8.7 8.8 8.5 HEPATIC: No results for input(s): ALKPHOS, ALT, AST, TBILI, LIPASE in the last 168 hours. URINALYSIS:No results for input(s): PH, SPGR, UGLUC, UBILI, UKET, UHB, UPROT, UROBIL, UWBC, SSA in the last 168 hours. Invalid input(s): NITR CARDIAC: No results for input(s): CKTEST, CKMB, CKMBP in the last 168 hours.TROPONIN@:8,No results found for: BNP:8)@ Intake/Output Summary (Last 24 hours) at 07/26/2020 0707 Last data filed at 07/25/2020 1550 Gross per 24 hour Intake 320 ml Output 200 ml Net 120 ml Serum creatinine: 0.83 mg/dL 07/26/20 0317 Estimated creatinine clearance: 123 mL/min Standardized Care Interventions: Labs: Routine blood work indicated for tomorrow on account of: suspected infection Assessment/Plan Problem List Infective endocarditis Methamphetamine dependence (HCC) Cannabis dependence (HCC) Nicotine use disorder, F17.2 IVDU (intravenous drug user) Fever Leucocytosis Hepatitis C antibody positive in blood Mild protein-calorie malnutrition (HCC) Hyponatremia 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 He is currently on vanc + cipro PICC line placed. TTE pending. ? COVID 19(Resolved) ID is following and they think he is no longer having active disease. He is no longer in isolation. ? Constipation On senna docusate and miralax. ? Hyponatremia(Euvolemic ) Was 127 today. Will continue to monitor for symptoms and monitor daily Na level. 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 . Anemia Likely anemia of chronic disease. Today's level was 9.7. ? Nicotine dependence. He is on a nicotine patch. ? H/o opioid use He is c/o pain in back and rarely shoulder likely due to opioid withdrawal. Pain management is on board. Anticoagulant AND Antiplatelet Medications (From admission, onward) Start Dose Route Frequency Ordered Stop 07/17/202099 enoxaparin 40 mg injection (LOVENOX) (Medical Risk Categories) 40 mg SUBCUTANEOUS DAILY 07/17/202044 -- VTE Prophylaxis: VTE prophylaxis appropriate GI Prophylaxis: Not indicated Telemetry: Not indicated Disposition: Extended care / halfway facility Code Status: Not on file Plan of care discussed with: Provider SIGNATURE: Fortunato Corcoran MD PATIENT NAME: Khanh De La Vega DATE: July 26, 2020 TIME: 7:00 AM Page 0815 Normal [facility] ALLIED HEALTHon 07-25-2020 ALLIED HEALTH HNO ID: [id number] Author: Angela David (Rt) Service: Radiology Author Type: Steam Cleaning Machine Operator Type: Allied Health Filed: 07/25/2020 1:06 PM Note Text: Radiology Service Progress Note DATE OF SERVICE: July 25, 2020 TIME: 1:05 PM PATIENT IDENTITY VERIFICATION COMPLETED USING TWO (2) STANDARD IDENTIFIERS: Name and Date of confirmed by patient verbally and Name and Date of confirmed by identification band. FALL SCREENING: Has the patient had 2 falls in the last year or 1 fall with injury or currently using an Ambulatory Assistive Device (Walker, Cane, Wheelchair, Crutches, etc.)? Inpatient: Screened on floor PATIENT GENDER DATA: Male PATIENT RELEVANT IMPLANT DATA REVIEWED: Not Applicable ALLERGIES: Reviewed and unchanged CONTRAST ALLERGY: NO. EXAM: CT -CONTRAST INDUCED NEPHROPATHY RISK FACTORS: Not applicable CREATININE: Creatinine Date Value Ref Range Status 07/25/2020 0.78 0.73 - 1.22 mg/dL Final 07/24/2020 0.85 0.73 - 1.22 mg/dL Final 07/23/2020 0.76 0.73 - 1.22 mg/dL Final 02/10/2018 0.92 0.67 - 1.17 mg/dL Final 04/23/2017 0.81 0.67 - 1.17 mg/dL Final 04/21/2017 0.88 0.67 - 1.17 mg/dL Final eGFR-All Other Races Date Value Ref Range Status 07/25/2020 >60 Final Comment: eGFR (Estimated GFR) Units of measure: mL/min/1.73 meters squared eGFR is derived from the reexpressed MDRD Study equation using the following parameters: serum creatinine, age, gender and race. The creatinine assay has been calibrated to be traceable to IDMS. An eGFR <60 mL/min/1.73m2 for >3 months is consistent with chronic kidney disease. Refer to KDOQI guidelines for clinical interpretation. In patients with unstable renal function, e.g. those with acute kidney injury, the eGFR may not accurately reflect actual GFR. eGFR- Date Value Ref Range Status 07/25/2020 >60 Final P.O.C.T. RESULTS: POC done: Yes, See Lab Tab July 25, 2020 TREATMENT: N/A and No Hydration needed. PERIPHERAL IV DATA: Inpatient - refer to LDA documentation RADIOLOGY DEPARTMENT: CT; Exam(s) Completed: Chest Abdomen Pelvis SIGNATURE: RT Joann PATIENT NAME: Khanh De La Vega DATE: July 25, 2020 TIME: 1:05 PM [facility] ALLIED HEALTH HNO ID: [id number] Author: Jazmine Leonardo RN Service: Infection Prevention Author Type: ? Type: Allied Health Filed: 07/25/2020 12:35 PM Note Text: INFECTION PREVENTION NOTE Admission Date: 07/17/2020 Patient meets ?COVID Resolved? criteria and isolation has been discontinued as per CDC guidance. COVID Resolved status will remain in storyboard for 90 days from FIRST positive test 06/29. Continue to follow [place] Pandemic Precautions. SIGNATURE: Jazmine Leonardo RN PATIENT NAME: Khanh De La Vega DATE: July 25, 2020 TIME: 12:34 PM PAGER/CONTACT #: Infection Prevention, [id number] Infection Prevention after hours/weekend pager: [phone] [facility] Bas Metab 2000 Pnl SerPlon 1 Anion gap [Moles/Vol] 8 mmol/L Low 9-18 [facility] Comment on above: Order Comment: Speci men Type: BLOOD SPECIMEN Performed By: #### H ISTCL #### [facility] CLIA [id number] [address] [place] [address] Calcium [Mass/Vol] 8.5 mg/dL Normal 8.5-10.2 [facility] Comment on above: Order Comment: Speci men Type: BLOOD SPECIMEN Performed By: #### H ISTCL #### [facility] CLIA [id number] [address] [place] [address] Chloride [Moles/Vol] 93 mmol/L Low 97-105 [facility] Comment on above: Order Comment: Speci men Type: BLOOD SPECIMEN Performed By: #### H ISTCL #### [facility] CLIA [id number] [address] [place] [address] CO2 [Moles/Vol] 28 mmol/L Normal 22-30 [facility] Comment on above: Order Comment: Speci men Type: BLOOD SPECIMEN Performed By: #### H ISTCL #### [facility] CLIA [id number] [address] [place] [address] Creatinine [Mass/Vol] 0.78 mg/dL Normal 0.73-1.22 [facility] Comment on above: Order Comment: Speci men Type: BLOOD SPECIMEN Performed By: #### H ISTCL #### [facility] CLIA [id number] [address] [place] [address] GFR/1.73 sq M.predicted MDRD (S/P/Bld) [Vol rate/Area] mL/min/{1.73_m2} Normal [facility] Comment on above: Order Comment: Speci men Type: BLOOD SPECIMEN Result Comment: >60 eGFR (Estimated GFR) Units of measure: mL/min/1.73 meters squared eGFR is derived from the reexpressed MDRD Study equation using the following parameters: serum creatinine, age, gender and race. The creatinine assay has been calibrated to be traceable to IDMS. An eGFR <60 mL/min/1.73m2 for >3 months is consistent with chronic kidney disease. Refer to KDOQI guidelines for clinical interpretation. In patients with unstable renal function, e.g. those with acute kidney injury, the eGFR may not accurately reflect actual GFR. Performed By: #### H ISTCL #### [facility] CLIA [id number] [address] [place] [address] Glucose [Mass/Vol] 100 mg/dL High 74-99 [facility] Comment on above: Order Comment: Speci men Type: BLOOD SPECIMEN Result Comment: The [place] Diabetes Association (ADA) provides guidance for cutoff values for fasting glucose and random glucose. The ADA defines fasting as no caloric intake for at least 8 hours. Fasting plasma glucose results between 100 to 125 mg/dL indicate increased risk for diabetes (prediabetes). Fasting plasma glucose results greater than or equal to 126 mg/dL meet the criteria for diagnosis of diabetes. In the absence of unequivocal hyperglycemia, results should be confirmed by repeat testing. In a patient with classic symptoms of hyperglycemia or hyperglycemic crisis, random plasma glucose results greater than or equal to 200 mg/dL meet the criteria for diagnosis of diabetes. Reference: Standards of Medical Care in Diabetes 2016, Indian Diabetes Association. Diabetes Care. 2016.39(Suppl 1). Performed By: #### H ISTCL #### [facility] CLIA [id number] [address] [place] [address] Potassium [Moles/Vol] 4.2 mmol/L Normal 3.7-5.1 [facility] Comment on above: Order Comment: Speci men Type: BLOOD SPECIMEN Performed By: #### H ISTCL #### [facility] CLIA [id number] [address] [place] [address] Sodium [Moles/Vol] 129 mmol/L Low 136-144 [facility] Comment on above: Order Comment: Speci men Type: BLOOD SPECIMEN Performed By: #### H ISTCL #### [facility] CLIA [id number] [address] [place] [address] Urea nitrogen [Mass/Vol] 14 mg/dL Normal 9-24 [facility] Comment on above: Order Comment: Speci men Type: BLOOD SPECIMEN Performed By: #### H ISTCL #### [facility] CLIA [id number] [address] [place] [address] CASE MANAGEMon 07-25-2020 CASE MANAGEM HNO ID: [id number] Author: Octavia (Rn) INDY Bennett Service: Nursing Author Type: Registered Nurse Type: Care Mgt Progress Note Filed: 07/25/2020 10:53 AM Note Text: CARE MANAGEMENT PROGRESS NOTE SERVICE DATE: 07/25/2020 SERVICE TIME: 10:52 AM LOS: 8 days Patient agreeable to [facility]. Was agreeable to [place] but changed his mind as it's too far from [place]. Confirming COVID policy. Will need precert SIGNATURE: Octavia Bennett RN PATIENT NAME: Khanh De La Vega DATE: July 25, 2020 TIME: 10:52 AM PAGER/CONTACT #: [phone] Normal [facility] CBC (hemogram) Bld Autoon Erythrocyte distribution width (RBC) [Ratio] 14.2 % Normal 11.5-15.0 [facility] Comment on above: Order Comment: Speci men Type: BLOOD SPECIMEN Performed By: #### 9 4500-6 #### [facility] CLIA [id number] [address] [place] [address] Hematocrit (Bld) [Volume fraction] 30.1 % Low 39.0-51.0 [facility] Comment on above: Order Comment: Speci men Type: BLOOD SPECIMEN Performed By: #### 9 4500-6 #### [facility] CLIA [id number] [address] [place] [address] Hemoglobin (Bld) [Mass/Vol] 9.5 g/dL Low 13.0-17.0 [facility] Comment on above: Order Comment: Speci men Type: BLOOD SPECIMEN Performed By: #### 9 4500-6 #### [facility] CLIA [id number] [address] [place] [address] MCH (RBC) [Entitic mass] 26.4 pg Normal 26.0-34.0 [facility] Comment on above: Order Comment: Speci men Type: BLOOD SPECIMEN Performed By: #### 9 4500-6 #### [facility] CLIA [id number] [address] [place] [address] MCHC (RBC) [Mass/Vol] 31.6 g/dL Normal 30.5-36.0 [facility] Comment on above: Order Comment: Speci men Type: BLOOD SPECIMEN Performed By: #### 9 4500-6 #### [facility] CLIA [id number] [address] [place] [address] MCV (RBC) [Entitic vol] 83.6 fL Normal 80.0-100.0 [facility] Comment on above: Order Comment: Speci men Type: BLOOD SPECIMEN Performed By: #### 9 4500-6 #### [facility] CLIA [id number] [address] [place] [address] Nucleated RBC (Bld) [#/Vol] 10*3/uL Normal <0.01 [facility] Comment on above: Order Comment: Speci men Type: BLOOD SPECIMEN Performed By: #### 9 4500-6 #### [facility] CLIA [id number] [address] [place] [address] Platelet mean volume (Bld) [Entitic vol] 11.2 fL Normal 9.0-12.7 [facility] Comment on above: Order Comment: Speci men Type: BLOOD SPECIMEN Performed By: #### 9 4500-6 #### [facility] CLIA [id number] [address] [place] [address] Platelets (Bld) [#/Vol] 225 10*3/uL Normal 150-400 [facility] Comment on above: Order Comment: Speci men Type: BLOOD SPECIMEN Performed By: #### 9 4500-6 #### [facility] CLIA [id number] [address] [place] [address] RBC (Bld) [#/Vol] 3.60 10*6/uL Low 4.20-6.00 [facility] Comment on above: Order Comment: Speci men Type: BLOOD SPECIMEN Performed By: #### 9 4500-6 #### [facility] CLIA [id number] [address] [place] [address] WBC (Bld) [#/Vol] 21.51 10*3/uL High 3.70-11.00 [facility] Comment on above: Order Comment: Speci men Type: BLOOD SPECIMEN Performed By: #### 9 4500-6 #### [facility] CLIA [id number] [address] [place] [address] CONSULT PROGon 07-25-2020 CONSULT PROG HNO ID: [id number] Author: Travis Carrera (Pharmacist) Service: Pharmacy Author Type: Pharmacist Type: Consult Progress Note Filed: 07/25/2020 8:43 AM Note Text: PHARMACY VANCOMYCIN DOSING NOTE Patient Name: Khanh De La Vega Admission Date: 07/17/2020 Date of Consult: 07/25/2020 Time of Consult: 6:10 AM Indication: Endocarditis Goal Range: 15-25 mcg/mL RECOMMENDATIONS/PLAN: Pharmacy consulted for vancomycin dosing for Khanh De La Vega, a 35 year old, male who is being treated with vancomycin for Endocarditis 1. Patient is currently ordered vancomycin 1.5 g IV q8h. Today is day 8 of therapy. 2. The most recent vancomycin level was 18.5 mcg/mL mcg/mL drawn at 1510 on 07/23/20. This is a 7 hour level on the 6th day of therapy. 3. The present dose of vancomycin is the recommended dosage for this patient at this time. Continue therapy as prescribed. 4. The next vancomycin level will be ordered for 07/28/20 unless clinically indicated sooner. (Pharmacy will order) We will follow patient renal function, vancomycin levels and doses with you during the course of therapy. Additional recommendations will appear in follow up notes. If you have any questions, please contact Travis Carrera at [phone]. Age: [age] year old Allergies: ALLERGIES Allergen Reactions - Penicillins Swelling - Sulfa (Sulfonamide * Swelling Last 3 Encounter Wt Readings: Date: Wt: 07/17/2020 76.7 kg (169 lb 1.6 oz) 11/23/2019 81.6 kg (180 lb) 02/25/2018 81.6 kg (180 lb) Last 1 Encounter Ht Readings: Date: Ht: 07/17/2020 175.3 cm (5' 9) CrCl: 120 mL/min Temp (24hrs), Av.4 ?C (99.3 ?F), Min:36.6 ?C (97.9 ?F), Max:38.7 ?C (101.7 ?F) - Current Temp: 37.8 ?C (100 ?F) Labs BUN (mg/dL) Date Value 07/24/2020 18 07/23/2020 15 07/22/2020 12 02/10/2018 16 04/23/2017 8 04/21/2017 10 Creatinine (mg/dL) Date Value 07/24/2020 0.85 07/23/2020 0.76 07/22/2020 0.72 (L) 02/10/2018 0.92 04/23/2017 0.81 04/21/2017 0.88 WBC Date Value 07/24/2020 25.54 k/uL (H) 07/23/2020 26.53 k/uL (H) 07/22/2020 22.21 k/uL (H) 02/10/2018 10.24 thou/cmm (H) 04/23/2017 9.9 thou/cmm 04/21/2017 9.9 thou/cmm Vancomycin Levels: Vancomycin (ug/mL) Date/Time Value 07/23/2020 1510 18.5 07/21/2020 0559 23.1 (H) Lyndsay Penny (Youth Pastor) Normal [facility] CT ABD/PEL W IVCONon 07-25-[address] ABD/PEL W IVCON Final Report DATE OF EXAM: Jul 25 2020 1:02PM [facility] 0530 - CT ABD/PEL W IVCON / PROCEDURE REASON: Infection, abdomen-pelvis Physician Interpretation EXAMINATION: CT CHEST WITH IV CONTRAST and CT ABDOMEN AND PELVIS WITH IV CONTRAST CLINICAL HISTORY: Abscess of the lower mediastinum. Tricuspid valve endocarditis, persistent fever TECHNIQUE: CT of the chest from the thoracic inlet to the upper abdomen was performed following IV contrast. CT of the abdomen and pelvis was performed using standard technique, scanning from just above the dome of the diaphragm to the symphysis pubis. MQ: CTCW_6; CTAP_3 Contrast: IV: 150 ml of Omnipaque 300 CT Radiation dose: Integrated Dose-length product (DLP) for this visit = [address] Dose Reduction Employed: Automated exposure control(AEC) and iterative recon COMPARISON: CT of the chest 07/19/2020 and prior. RESULT: Limitations: None. Chest: Lines, tubes, and devices: None. Lung parenchyma and airways: Mild bandlike atelectasis predominantly in the lung bases. No consolidation. No suspicious pulmonary nodule. A 0.2 cm nodule is present in the apical posterior left upper lobe. The central airways are patent. Pleural space: No pleural effusion. No pleural thickening. Lower neck, lymph nodes, and mediastinum: The imaged thyroid gland is normal. No lympadenopathy in the supraclavicular, axillary, mediastinal, or hilar regions. Heart, pericardium, and thoracic vessels: The thoracic aorta and main pulmonary artery are normal in caliber. Mild cardiomegaly. No significant coronary artery calcifications are noted, although the study is not optimized for coronary assessment. No pericardial effusion or thickening. Abdomen / Pelvis: Liver: Indeterminate 0.7 cm hypoattenuating focus in the anterior right hepatic dome. Hypoattenuation of the liver compared to the spleen suggesting hepatic steatosis. Biliary: No bile duct dilation. Gallbladder is decompressed over gallstones. No biliary ductal dilation. Spleen: Mild splenomegaly of 15 cm in AP diameter, minimally increased since 10/2019.. A 1.5 cm accessory spleen is present.. Pancreas: No mass or duct dilation. Adrenals: No mass. Kidneys: Symmetric nephrograms. GI tract: No dilation or wall thickening. Lymph nodes: No abdominal or pelvic lymphadenopathy. Stable 1.0 cm aortocaval lymph node. Other small retroperitoneal lymph nodes are also unchanged. Mesentery/Peritoneum: No ascites or mass. Retroperitoneum: No mass. Vasculature: The celiac axis and SMA are patent. The portal vein and branches, splenic vein, SMV, and hepatic veins are patent. Pelvis: No mass, ascites or fluid collection. Urinary bladder is decompressed. Musculoskeletal soft tissues: Bones: No acute osseous abnormalities. Soft tissues: Mild bilateral gynecomastia. Broiler Supervisor (topogram) images: No additional findings. IMPRESSION: Chest: 1. No consolidation or pleural effusion. No suspicious nodules. 2. No lymphadenopathy in the chest. Abdomen / Pelvis: 1. No acute intra-abdominal or pelvic findings. 2. Hepatic steatosis. 3. Indeterminate a 0.7 cm enhancing lesion in the anterior right hepatic dome for which nonemergent dedicated MRI might be obtained for further evaluation. 4. A few mildly prominent lymph nodes in the retroperitoneum, nonspecific in grossly unchanged since 10/2019. Life Support Technician: MORGAN Transcribe Date/Time: Jul 25 2020 1:17P Dictated by : VARUN ISLAS MD This examination was interpreted and the report reviewed and electronically signed by: VARUN ISLAS MD on Jul 25 2020 1:35PM EST Normal [facility] CT CHEST W IVCONon 0 CT CHEST W IVCON Final Report DATE OF EXAM: Jul 25 2020 1:02PM [facility] 0539 - CT CHEST W IVCON / PROCEDURE REASON: Abscess of lung or mediastinum Physician Interpretation EXAMINATION: CT CHEST WITH IV CONTRAST and CT ABDOMEN AND PELVIS WITH IV CONTRAST CLINICAL HISTORY: Abscess of the lower mediastinum. Tricuspid valve endocarditis, persistent fever TECHNIQUE: CT of the chest from the thoracic inlet to the upper abdomen was performed following IV contrast. CT of the abdomen and pelvis was performed using standard technique, scanning from just above the dome of the diaphragm to the symphysis pubis. MQ: CTCW_6; CTAP_3 Contrast: IV: 150 ml of Omnipaque 300 CT Radiation dose: Integrated Dose-length product (DLP) for this visit = [address] Dose Reduction Employed: Automated exposure control(AEC) and iterative recon COMPARISON: CT of the chest 07/19/2020 and prior. RESULT: Limitations: None. Chest: Lines, tubes, and devices: None. Lung parenchyma and airways: Mild bandlike atelectasis predominantly in the lung bases. No consolidation. No suspicious pulmonary nodule. A 0.2 cm nodule is present in the apical posterior left upper lobe. The central airways are patent. Pleural space: No pleural effusion. No pleural thickening. Lower neck, lymph nodes, and mediastinum: The imaged thyroid gland is normal. No lympadenopathy in the supraclavicular, axillary, mediastinal, or hilar regions. Heart, pericardium, and thoracic vessels: The thoracic aorta and main pulmonary artery are normal in caliber. Mild cardiomegaly. No significant coronary artery calcifications are noted, although the study is not optimized for coronary assessment. No pericardial effusion or thickening. Abdomen / Pelvis: Liver: Indeterminate 0.7 cm hypoattenuating focus in the anterior right hepatic dome. Hypoattenuation of the liver compared to the spleen suggesting hepatic steatosis. Biliary: No bile duct dilation. Gallbladder is decompressed over gallstones. No biliary ductal dilation. Spleen: Mild splenomegaly of 15 cm in AP diameter, minimally increased since 10/2019.. A 1.5 cm accessory spleen is present.. Pancreas: No mass or duct dilation. Adrenals: No mass. Kidneys: Symmetric nephrograms. GI tract: No dilation or wall thickening. Lymph nodes: No abdominal or pelvic lymphadenopathy. Stable 1.0 cm aortocaval lymph node. Other small retroperitoneal lymph nodes are also unchanged. Mesentery/Peritoneum: No ascites or mass. Retroperitoneum: No mass. Vasculature: The celiac axis and SMA are patent. The portal vein and branches, splenic vein, SMV, and hepatic veins are patent. Pelvis: No mass, ascites or fluid collection. Urinary bladder is decompressed. Musculoskeletal soft tissues: Bones: No acute osseous abnormalities. Soft tissues: Mild bilateral gynecomastia. Broiler Supervisor (topogram) images: No additional findings. IMPRESSION: Chest: 1. No consolidation or pleural effusion. No suspicious nodules. 2. No lymphadenopathy in the chest. Abdomen / Pelvis: 1. No acute intra-abdominal or pelvic findings. 2. Hepatic steatosis. 3. Indeterminate a 0.7 cm enhancing lesion in the anterior right hepatic dome for which nonemergent dedicated MRI might be obtained for further evaluation. 4. A few mildly prominent lymph nodes in the retroperitoneum, nonspecific in grossly unchanged since 10/2019. Life Support Technician: PSCGlynn Transcribe Date/Time: Jul 25 2020 1:17P Dictated by : VARUN ISLAS MD This examination was interpreted and the report reviewed and electronically signed by: VARUN ISLAS MD on Jul 25 2020 1:35PM EST Normal [facility] NURSING PROGon 07-25-2020 NURSING PROG HNO ID: [id number] Author: Perri IrahetaRn) INDY Huff Service: Nursing Author Type: Registered Nurse Type: Nursing Progress Note Filed: 07/25/2020 2:38 PM Note Text: Dr Galvez aware patient will possibly be transferred to non covid unit as covid states resolved Normal [facility] NURSING PROG HNO ID: [id number] Author: Perri IrahetaRn) INDY Huff Service: Nursing Author Type: Registered Nurse Type: Nursing Progress Note Filed: 07/25/2020 12:31 PM Note Text: Jessenia in Cat scan notified patient drank almost entire bottle of readi trevor however did not tolerate and states he vomitted x2. Patient declining second bottle of readi trevor. Cat scan to send for patient to be scanned at/around 1300 Normal [facility] NURSING PROG HNO ID: [id number] Author: Perri IrahetaRn) Daria RN Service: Nursing Author Type: Registered Nurse Type: Nursing Progress Note Filed: 07/25/2020 11:27 AM Note Text: readi trevor 450ml given to patient per ct for scan Normal [facility] NURSING PROG HNO ID: [id number] Author: Perri IrahetaRn) Daria RN Service: Nursing Author Type: Registered Nurse Type: Nursing Progress Note Filed: 07/25/2020 9:27 AM Note Text: House medicine resident Nilo and healthcare financial analyst Octavia notified patient has questions about discharge planning. Normal [facility] NURSING PROG HNO ID: [id number] Author: Perri (Rn) INDY Huff Service: Nursing Author Type: Registered Nurse Type: Nursing Progress Note Filed: 07/25/2020 8:10 AM Note Text: Resident [facility] medicine notified patient has temperature of 38.7 and tylenol given Normal [facility] PROGRESSon 07-25-2020 PROGRESS HNO ID: [id number] Author: Stevo Bowens III Service: Infectious Disease Author Type: Physician Type: Progress Notes Filed: 07/25/2020 10:55 AM Note Text: PROGRESS NOTE INFECTIOUS DISEASE Active Antimicrobials (From admission, onward) Start Stop 07/19/20 1500 vancomycin iv piggyback 1.5 g in D5W 250 mL (VANCOCIN) 1.5 g, INTRAVENOUS, EVERY 8 HOURS -- 07/18/20 1300 cefepime 2 g in D5W 100 mL MB+ (MAXIPIME) 2 g, INTRAVENOUS, EVERY 8 HOURS -- 07/17/20 2100 vancomycin dosing and monitoring per pharmacy OTHER, DIRECTED -- ASSESSMENT: 1) Tricuspid valve endocarditis- douglas valve. Culture negative. 2) Fevers- persisting although patient looking well. 3) leukocytosis- downtrending again. Maybe this is drug fever rather than related to his endocarditis. I doubt he has active COVID at this point so I don't think this is causing his fevers. I'm going to change him to a [id number] gram negative agent and see if fevers improve. Also planning for recheck of his endocarditis with TTE and will check for any secondary space occupying lesion with CT. Fungal testing negative so doubt fungal infection of valve 4) prior COVID- originally diagnosed on 06/29 with initial symptoms starting on 06/26. Now positive on recheck again although not having symptoms of COVID. I think this is indicative of continued shed of viral particles in recovered patient rather than being indicative of active disease. Will remove from isolation. Had discussed with infection control. RECOMMENDATIONS: Continue vancomycin Change cefepime to cipro Check TTE, CT chest/abd/pelvis Can look to discharge at end of week once this information is back. Remove from isolation. SUBJECTIVE: Interval Events: Feeling well. No chills with his fevers. Still some mild back ache and muscle pains which is normal for him. ROS No shaking chills No oral lesions No cough or dyspnea No abdominal pain, nausea or diarrhea. Medications:Reviewed OBJECTIVE: Physical Exam: BP 113/75 Pulse 95 Temp 37.1 ?C (98.8 ?F) Resp 20 Ht 175.3 cm (5' 9) Wt 76.7 kg (169 lb 1.6 oz) SpO2 96% BMI 24.97 kg/m? Physical Exam Lying in bed in no distress No thrush Heart is RRR without murmur Lungs CTAB Abdomen soft, nontender Lab data: WBC Date Value 07/25/2020 21.51 k/uL 07/24/2020 25.54 k/uL 07/23/2020 26.53 k/uL 07/22/2020 22.21 k/uL 07/21/2020 21.81 k/uL 02/10/2018 10.24 thou/cmm 04/23/2017 9.9 thou/cmm 04/21/2017 9.9 thou/cmm 04/17/2014 6.3 thou/cmm Platelet Count Date Value 07/25/2020 225 k/uL 07/24/2020 227 k/uL 07/23/2020 Comment: Platelets Clumped Estimate Normal. 07/22/2020 265 k/uL 07/21/2020 243 k/uL 02/10/2018 299 thou/cmm 04/23/2017 365 thou/cmm 04/21/2017 343 thou/cmm 04/17/2014 305 thou/cmm Creatinine (mg/dL) Date Value 07/25/2020 0.78 07/24/2020 0.85 07/23/2020 0.76 07/22/2020 0.72 07/21/2020 0.70 02/10/2018 0.92 04/23/2017 0.81 04/21/2017 0.88 04/17/2014 0.83 Vancomycin (ug/mL) Date Value 07/23/2020 18.5 07/21/2020 23.1 07/20/2020 17.4 07/19/2020 10.9 AST (U/L) Date Value 07/17/2020 27 04/23/2017 26 ALT (U/L) Date Value 07/17/2020 13 04/23/2017 30 All blood cultures have been no growth SIGNATURE: Stevo Bowens III, MD PATIENT NAME: Khanh De La Vega DATE: July 25, 2020 TIME: 10:42 AM PAGER/CONTACT #: [phone] [facility] PROGRESS HNO ID: [id number] Author: Marilyn Graham Service: Pain Management Author Type: Physician Type: Progress Notes Filed: 07/25/2020 8:42 AM Note Text: Name: KHANH DE LA VEGA Age: [age] year old PAIN MANAGEMENT: Back pain, TV endocarditis, IVDA; opiate dependent Pain Description: Comfortably when seen earlier; some back pain. Ambulating okay Interval HPI: T-max to 38.7. Room air 95%. Denies respiratory symptoms Blood cultures remain negative. Remains on vancomycin plus cefepime. Repeat blood cultures 07/23. Repeat TTE later this week per ID 24H Comfort Meds: Tylenol 650 mg x 1 Methadone 10 mg twice daily x2 Methadone 5 mg x 3 Antibiotic Therapy: Cefepime, vancomycin Subjective HPI: 35-year-old male with history of active IVDA (heroin, fentanyl, methamphetamine-daily times years), hepatitis C presented to [facility] 07/13 with worsening fatigue, fevers. Patient was noted to have leukocytosis; urine drug screen positive for opiates and amphetamines. TTE demonstrated 0.5 x 1 cm tricuspid valve vegetation. Patient was started on IV vancomycin and Zosyn. He was briefly treated with Suboxone for opiate withdrawal. He was transferred to [facility] 07/17 for evaluation by CTS for possible surgery. Patient states he last used IV heroin and methamphetamine on 07/13. He was intolerant of Suboxone in the past due to GI upset. He had been on it for about 3 months 5 years ago. He has not been on methadone maintenance. He complains of back pain as well as some mild withdrawal symptoms. OARRS Review: 1 prescription [place] 5/325 #10 Current Facility-Administered Medications Medication Dose Route Frequency Provider Last Rate Last Dose - perflutren lipid microspheres 1.1 mg/mL 1.3 mL injection (DEFINITY) 1.3 mL INTRAVENOUS DIRECTED PRN Nishalbert (Res) Barve - methadone 10 mg tab(s) (DOLOPHINE) 10 mg ORAL BID Heike (Res) MD Floyd 10 mg at 07/25/20 0735 - sodium chloride 0.9 % (flush) 10 mL (BD POSIFLUSH) 10 mL INTRAVENOUS q 12 H Heike (Res) MD Floyd 10 mL at 07/25/20 0737 - sodium chloride 0.9 % (flush) 20 mL (BD POSIFLUSH) 20 mL INTRAVENOUS PRN Heike (Res) MD Floyd - bisacodyl 10 mg suppository (DULCOLAX) 10 mg RECTAL DAILY PRN Heike (Res) MD Floyd - prochlorperazine 10 mg tab(s) (COMPAZINE) 10 mg ORAL q 6 H PRN Heike (Res) MD Floyd - vancomycin iv piggyback 1.5 g in D5W 250 mL (VANCOCIN) 1.5 g INTRAVENOUS q 8 H Heike (Res) MD Floyd 125 mL/hr at 07/25/20 0736 1.5 g at 07/25/20 0736 - senna-docusate 8.6-50 mg 2 tablet (SENNA-S) 2 tablet ORAL BID Heike (Res) MD Floyd 2 tablet at 07/25/20 0734 - polyethylene glycol 3350 17 g packet (MIRALAX, GLYCOLAX) 17 g ORAL DAILY Heike (Res) MD Floyd 17 g at 07/22/20 1000 - methadone 5 mg tab(s) (DOLOPHINE) 5 mg ORAL q 4 H PRN Heike (Res) MD Floyd 5 mg at 07/25/20 0552 - nicotine 14 mg/24 hr 1 Patch (NICODERM) 1 Patch TRANSDERMAL DAILY Heike (Res) MD Floyd 1 Patch at 07/25/20 0734 And - nicotine -- REMOVE patch OTHER DAILY Heike (Rodríguez) MD Floyd And - nicotine - verify patch OTHER q 8 H Heike (Rodríguez) MD Floyd - cefepime 2 g in D5W 100 mL MB+ (MAXIPIME) 2 g INTRAVENOUS q 8 HR Heike (Rodríguez) MD Floyd 200 mL/hr at 07/25/20 0554 2 g at 07/25/20 0554 - vancomycin dosing and monitoring per pharmacy OTHER As Directed Heike (Rodríguez) MD Floyd - enoxaparin 40 mg injection (LOVENOX) 40 mg SUBCUTANEOUS DAILY Heike (Rodríguez) MD Floyd 40 mg at 07/25/20 0735 - ondansetron 4 mg tab(s) (ZOFRAN) 4 mg ORAL q 6 H PRN Heike (Res) MD Floyd 4 mg at 07/24/20 0920 Or - ondansetron (PF) 4 mg injection (ZOFRAN) 4 mg INTRAVENOUS q 6 H PRN Heike (Res) MD Floyd 4 mg at 07/23/20 0813 - acetaminophen 650 mg tab(s) (TYLENOL) 650 mg ORAL q 6 H PRN Heike (Res) MD Floyd 650 mg at 07/25/20 0735 - hydrOXYzine HCl 50 mg tab(s) (ATARAX) 50 mg ORAL q 6 H PRN Heike (Res) MD Floyd 50 mg at 07/23/20 1317 No medications prior to admission. Social History Tobacco Use - Smoking status: Current Every Day Smoker Packs/day: 1.00 Types: Cigarettes - Smokeless tobacco: Never Used Substance Use Topics - Alcohol use: Yes Comment: socially - Drug use: Yes Types: Crystal Meth, Marijuana, Heroin, Amphetamines Comment: pt does inject No family history on file. PAST SURGICAL HISTORY Procedure Laterality Date - IR VASCULAR ACCESS TEAM PICC INSERTION RADIO 07/23/2020 - ORTHOPEDICS SURGERY HX Right pins placed in right hand ROS: All of the following reviewed and negative except as noted below: Significant for HPI GENERAL: no fever, chills, sweats, weight loss, fatigue, generalized weakness HEENT: no headache, vision changes, eye discomfort, hearing change, ear discomfort, sinus pain, nasal discharge or congestion, oral lesions, soreness, dental problem NECK: no adenopathy, discomfort, change in ROM CHEST: no shortness of breath, dyspnea on exertion, wheezing, cough, sputum production or chest pain HEART: no chest pain, palpitations, syncope ABDOMEN: no nausea, vomiting, constipation, diarrhea, abdominal pain : no dysuria, urgency, frequency, history of stones, incontinence NEURO: no confusion or alteration in consciousness, slurred speech, seizure, focal weakness EXTREMITIES: no new pain, edema, change in ROM HEME: no new adenopathy, bruises, petechiae PSYCH: no depression, anxiety, agitation PAIN PSYCHIATRIC EXAM: GENERAL: alert, oriented to person, place, time JUDGMENT AND INSIGHT: intact APPEARANCE: neatly groomed DEMEANOR: coooperative, not hostile, mistrustful, preoccupied, or demanding ACTIVITY: normal, not hyperactive or hypoactive, no tremors, tics EYE CONTACT: normal SPEECH: normal, rate, volume, articulation, coherence, spontaneity MOOD: normal, without overt sadness, grief, anxiety, appropriate to situation IDEATION: Deferred MEMORY: intact PHYSICAL EXAMINATION: GENERAL: well nourished and developed; no acute distress; alert and oriented x 3; intact judgement and insight HEENT: no evidence of trauma; cranial nerves intact; eyes clear EOMI; no hearing deficits apparent; nasal passages unremarkable; throat and mucous membranes clear NECK: supple without lymphadenopathy; no JVD; no thyromegaly CHEST: clear bilaterally to auscultation; normal chest movement; no rales or rhonchi HEART: regular rate and rhythm, 2/6 systolic murmur ABDOMEN: soft; nondistended; bowel sounds present; no hepatomegaly; no splenomegaly; no tenderness EXTREMITIES: no evidence of clubbing; no cyanosis; no deformity; no joint effusion; no edema NEURO: cranial nerves intact; no focal deficits; no confusion; no tremor; sensorium normal SKIN: no rash; no skin breakdown; no decubitus lesions HEME: no bruising; no adenopathy PSYCH: no evidence of depression; no anxiety; no agitation; no apparent hallucinations BP 113/75 Pulse 95 Temp (!) 38.7 ?C (101.7 ?F) (Oral) Resp 20 Ht 175.3 cm (5' 9) Wt 76.7 kg (169 lb 1.6 oz) SpO2 96% BMI 24.97 kg/m? BMI 24.97 kg/(m2) ABNORMAL/NEW FINDINGS: NONE RADIOLOGY/DIAGNOSTICS: LABORATORY: CBC: Recent Labs 07/25/20 0558 WBC 21.51* RBC 3.60* HB 9.5* HCT 30.1* PLT 225 MCV 83.6 MCH 26.4 MPV 11.2 CMP: Recent Labs 07/25/20 0558 NA 129* K 4.2 CHLOR 93* CO2 28 BUN 14 CREAT 0.78 GLUC 100* CA 8.5 ANION 8* Heme: No results for input(s): RETICP, ABSRETIC, LD, YEIMY, FE, TIBC, TRANSFERSAT in the last 24 hours. 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 Repeat blood cultures pending. Repeat TTE later this week per ID Continue IV vancomycin and cefepime. Status post prior Suboxone taper at initial presentation at [facility]. Ongoing complaints of back pain, Defer any work-up to primary service. Methadone 10 mg twice daily Methadone 5 mg every 4 hours as needed pain. Plan to eventually schedule methadone with taper over a few weeks Patient not interested in Suboxone; intolerant of it in the past due to GI upset Now Covid positive;initially positive on 06/30/2020. Has been moved to isolation bed. Per ID, likely continued shedding viral particles and recovered patient rather than indicative of active disease Disposition pending Marilyn Graham MD ADDENDUM: Portions of this note were copied so as to provide important historical information essential in contributing to medical decision making today. ADDENDUM: Even the portions of this note that were copied have been reviewed completely and edited so as to result in a note that most accurately reflects my complete evaluation today. [facility] PROGRESS HNO ID: [id number] Author: Fortunato Corcoran Service: Hospital Medicine Author Type: Resident Type: Progress Notes Filed: 07/25/2020 12:33 PM Note Text: Attestation signed by Julee Galvez at 07/26/2020 8:36 AM Discussed with team, chart reviewed. Pt seen and evaluated on 07/25 at 1435, he looked tired but well, was sitting up in bed, appreciated the snacks I brought for him (asked if he was hungry, said 'yeh, I'd like some snacks'). We discussed Dr Bowens's plan of care. Good PO intake, no pain complaints, no nausea or vomiting, daily BMs as well. 07/25/20 0700 07/25/20 0830 07/25/20 19107/26/20 0700 BP: 113/75 134/85 103/66 Pulse: 95 87 63 Resp: Temp: (!) 38.7 ?C (101.7 ?F) 37.1 ?C (98.8 ?F) 36.8 ?C (98.2 ?F) (!) 38.3 ?C (100.9 ?F) TempSrc: Oral Oral Oral SpO2: 96% 100% 96% Weight: Height: GEN - as above HEENT - mouth moist CARD - didn't appreciate murmur PULM - CTABL, no cough, no sob ABD - soft, nontender EXT - no edema, no rash, many tattoos NEURO - no focal deficits, no tremor, no confusion Disposition - as below, abx changed today, repeat Echo ordered, await final plan of care from ID. Will eventually need placement for long course of IV abx. Attending Note I personally saw and examined the patient. I reviewed the resident's note. I agree with the resident's assessment and plan unless otherwise noted. Signature: Julee Galvez MD Date: 07/26/2020 Time: 8:36 AM HOUSE MEDICINE SERVICE PROGRESS NOTE SERVICE DATE: July 25, 2020 NIGHT AND WEEKEND COVERAGE: From 6 AM to 5 PM: You may reach the House Medicine sales and marketing intern currently assigned to this patient by finding their pager number on the treatment team (they will be assigned as the sales and marketing intern or resident). It is the last four digits in the phone number beginning with ([phone]). We encourage the use of [employer] Secure Chat. SUBJECTIVE HPI: Patient is a 35 yr male who is a chronic IVDU since 2009 and Hep C positive ( antibody positive on 11/23/19), presented to the [facility] for chronic fatigue on 07/13/20. He was found to have opiate withdrawal symptoms and had spiking fevers maximum temp being 102 F, raised WBC and negative blood cultures (07/15). His urine tox was positive for opiates, amphetamines and opiates. 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 ID consultation was done and his zosyn was switched to cefepime. He was treated for b with buprenorphine which was tapered. ? He was found to be negative for HIV and Hep B and his WBCs started trending down, however he still spiked fevers. Repeat blood cultures on 07/15 were sent which is still pending. He was transferred to [facility] for CT surgery evaluation for possible surgery for his IE. ? At the time of admission, patient was febrile 102 F. Complained of global pain. He admitted to intermittent abdominal discomfort and said he had been constipated for 3 days. He denied any chest pain, palpitations, lightheadedness, or bilateral LL swelling. He said his last IVDU was on Thursday morning (07/13/20) before he presented to the hospital. He denied the use of leg veins for the same. ? CTS saw the patient and recommend a GRICELDA for further evaluation. However given his return to covid positive status, that may be delayed. ID was also following the patient and they recommended starting him on vanc plus cefepime. His blood Cxs from here as well as [facility] have been negative as per Dr Bowens's note on 07/19. ? Of note, he was covid positive on 06/29/20 however he was tested negative during his hospital admission in [place]. However his COVID result again came positive and he moved to isolation laird. Interval Events: Patient cannot have a GRICELDA done, given his covid positive status. We have ordered a repeat TTE instead and will follow up on the same. No documented fever overnight. Dr Bowens had ordered repeat blood Cx on 07/23 which show no growth at end of day 1. The patient does not report any chest pain, shortness of breath, palpitations, any issues with bowel movements or urination. OBJECTIVE Medications: IV Infusions: Scheduled: - methadone, 10 mg, BID - sodium chloride 0.9 % (flush), 10 mL, q 12 H - vancomycin, 1.5 g, q 8 H - senna-docusate, 2 tablet, BID - polyethylene glycol 3350, 17 g, DAILY - nicotine, 1 Patch, DAILY And - nicotine -- REMOVE patch, , DAILY And - nicotine - verify patch, , q 8 H - cefepime, 2 g, q 8 HR - vancomycin dosing and monitoring per pharmacy, , As Directed - enoxaparin, 40 mg, DAILY PRN: - perflutren lipid microspheres, 1.3 mL, DIRECTED PRN - sodium chloride 0.9 % (flush), 20 mL, PRN - bisacodyl, 10 mg, DAILY PRN - prochlorperazine, 10 mg, q 6 H PRN - methadone, 5 mg, q 4 H PRN - ondansetron, 4 mg, q 6 H PRN Or - ondansetron (PF), 4 mg, q 6 H PRN - acetaminophen, 650 mg, q 6 H PRN - hydrOXYzine HCl, 50 mg, q 6 H PRN Vital Signs: BP 118/75 Pulse 96 Temp (Src) 100 (Oral) Resp 20 Ht 5' 9 (1.75m) Wt 169 lb 1.6 oz (76.7kg) SpO2 94% BMI 24.96 kg/(m2). O2 Therapy: Room Air Patient Vitals for the past 24 hrs: Pulse BP 07/25/20 0552 96 118/75 07/24/20 2336 80 100/62 07/24/202014 82 113/76 07/24/20 1814 78 109/68 07/24/20 0700 88 100/58 Physical Exam Performed: Due to the current efforts to prevent transmission of COVID-19 and also the need to preserve PPE for caregivers, a [id number] encounter with the patient was not performed. That being said, all relevant records and diagnostic tests were reviewed, including laboratory results and imaging. Please reference attending physician documentation for physical exam. Care will be coordinated with the team members. Lines, Drains, and Airways Line Central Line Single Lumen 07/23/20 1447 Peripherally Inserted (PICC) Right Arm 4.0 Bangladeshi 1 day Reviewed lines and needs to be continued: REASONS: Intravenous antibiotics Labs: CBC: Recent Labs 07/25/20 0558 07/24/20 0451 07/23/20 0610 07/22/20 0323 07/21/20 0559 07/20/20 0554 07/19/20 0600 WBC 21.51* 25.54* 26.53* 22.21* 21.81* 19.91* 20.38* HB 9.5* 10.0* 9.9* 10.5* 10.3* 10.1* 10.5* HCT 30.1* 30.1* 30.9* 33.3* 31.9* 30.9* 31.4* PLT 225 227 -- 265 243 229 209 MCV 83.6 82.9 83.3 85.2 83.9 83.7 82.0 RDWCV 14.2 14.3 14.1 13.8 13.9 13.8 13.9 NEUTP -- -- -- 70.2 -- -- -- ABSNEUT -- -- -- 15.60* -- -- -- LYMPHP -- -- -- 17.1 -- -- -- MONOP -- -- -- 8.5 -- -- -- COAG: No results for input(s): APTT, INR in the last 168 hours. BMP: Recent Labs 07/25/2055707/24/2045007/23/20 0610 07/22/20 0323 07/21/20 0559 07/20/20 1548 07/20/20 0554 07/19/20 0600 GLUC 100* 100* 100* 110* 94 -- 106* 102* NA 129* 132* 127* 130* 128* 130* 126* 128* K 4.2 4.6 4.4 4.3 4.5 -- 4.2 4.3 CHLOR 93* 94* 94* 92* 92* -- 92* 96* CO2 28 28 25 31* 27 -- 28 25 ANION 8* 10 8* 7* 9 -- 6* 7* BUN 14 18 15 12 13 -- 16 15 CREAT 0.78 0.85 0.76 0.72* 0.70* -- 0.73 0.75 CHEM: Recent Labs 07/25/20 0558 07/24/20 0451 07/23/20 0610 07/22/20 0323 07/21/20 0559 07/20/20 0554 07/19/20 0600 CA 8.5 8.6 8.8 8.7 8.8 8.5 8.8 HEPATIC: No results for input(s): ALKPHOS, ALT, AST, TBILI, LIPASE in the last 168 hours. URINALYSIS:No results for input(s): PH, SPGR, UGLUC, UBILI, UKET, UHB, UPROT, UROBIL, UWBC, SSA in the last 168 hours. Invalid input(s): NITR CARDIAC: No results for input(s): CKTEST, CKMB, CKMBP in the last 168 hours.TROPONIN@:8,No results found for: BNP:8)@ No intake or output data in the 24 hours ending 07/25/20 0659 Serum creatinine: 0.78 mg/dL 07/25/20 0558 Estimated creatinine clearance: 130.9 mL/min Standardized Care Interventions: Labs: Routine blood work indicated for tomorrow on account of: suspected infection Assessment/Plan Problem List Infective endocarditis Methamphetamine dependence (HCC) Cannabis dependence (HCC) Nicotine use disorder, F17.2 IVDU (intravenous drug user) Fever Leucocytosis Hepatitis C antibody positive in blood Mild protein-calorie malnutrition (HCC) Hyponatremia COVID-19 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 He is currently on vanc + cefepime CTS wants a GRICELDA for further evaluation however given his COVID status, that may not be done. ID recommends TTE - ordered the same. PICC line has been ordered for 6 week Abx Rx and it was placed on 07/23. ? COVID positive ID is following and patient has been moved to the isolation laird. ? Constipation -dc morphine and oxycodone -Started on senna docusate and miralax. ? Hyponatremia(Euvolemic ) Was 129 today. Will continue to monitor for symptoms and monitor daily Na level. Urine / serum osmolality at 564/275 . Urine Na at 64. Likely 2/2 SIADH Continue fluid restriction. Patient encouraged to limit H2O consumption. . Anemia Likely anemia of chronic disease. Today's level was 9.5. ? Nicotine dependence. He is on a nicotine patch. ? H/o opioid use He is c/o pain in back and rarely shoulder likely due to opioid withdrawal. Pain management is on board. {TIP Manually update assessment and plan for new or resolved problems above Launch Problem List (No need to delete will not show in completed note) :[id number]} Medication and Non-Pharmacologic VTE Prophylaxis/Anticoagul ants Anticoagulant AND Antiplatelet Medications (From admission, onward) Start Dose Route Frequency Ordered Stop 07/17/202099 enoxaparin 40 mg injection (LOVENOX) (Medical Risk Categories) 40 mg SUBCUTANEOUS DAILY 07/17/202044 -- 07/17/202044 pneumatic compression stockings (ct,oh) 07/17/202044 activity - mobilize patient (ct,mi) VTE Prophylaxis: VTE prophylaxis appropriate GI Prophylaxis: Not indicated Telemetry: Not indicated Disposition: Extended care / halfway facility Code Status: Not on file Plan of care discussed with: Provider SIGNATURE: Fortunato Corcoran MD PATIENT NAME: Khanh De La Vega DATE: July 25, 2020 TIME: 6:54 AM Page 0834 Normal [facility] Bas Metab 2000 Pnl SerPlon 1 Anion gap [Moles/Vol] 10 mmol/L Normal 9-18 [facility] Comment on above: Order Comment: Speci men Type: BLOOD SPECIMEN Performed By: #### H ISTCL #### [facility] CLIA [id number] [address] [place] [address] Calcium [Mass/Vol] 8.6 mg/dL Normal 8.5-10.2 [facility] Comment on above: Order Comment: Speci men Type: BLOOD SPECIMEN Performed By: #### H ISTCL #### [facility] CLIA [id number] 1 [place] [address] Chloride [Moles/Vol] 94 mmol/L Low 97-105 [facility] Comment on above: Order Comment: Speci men Type: BLOOD SPECIMEN Performed By: #### H ISTCL #### [facility] CLIA [id number] 1 [place] [address] CO2 [Moles/Vol] 28 mmol/L Normal 22-30 [facility] Comment on above: Order Comment: Speci men Type: BLOOD SPECIMEN Performed By: #### H ISTCL #### [facility] CLIA [id number] [address] [place] [address] Creatinine [Mass/Vol] 0.85 mg/dL Normal 0.73-1.22 [facility] Comment on above: Order Comment: Speci men Type: BLOOD SPECIMEN Performed By: #### H ISTCL #### [facility] CLIA [id number] [address] [place] [address] GFR/1.73 sq M.predicted MDRD (S/P/Bld) [Vol rate/Area] mL/min/{1.73_m2} Normal [facility] Comment on above: Order Comment: Speci men Type: BLOOD SPECIMEN Result Comment: >60 eGFR (Estimated GFR) Units of measure: mL/min/1.73 meters squared eGFR is derived from the reexpressed MDRD Study equation using the following parameters: serum creatinine, age, gender and race. The creatinine assay has been calibrated to be traceable to IDMS. An eGFR <60 mL/min/1.73m2 for >3 months is consistent with chronic kidney disease. Refer to KDOQI guidelines for clinical interpretation. In patients with unstable renal function, e.g. those with acute kidney injury, the eGFR may not accurately reflect actual GFR. Performed By: #### H ISTCL #### [facility] CLIA [id number] 1 [place] [address] Glucose [Mass/Vol] 100 mg/dL High 74-99 [facility] Comment on above: Order Comment: Speci [facility] Type: BLOOD SPECIMEN Result Comment: The [place] Diabetes Association (ADA) provides guidance for cutoff values for fasting glucose and random glucose. The ADA defines fasting as no caloric intake for at least 8 hours. Fasting plasma glucose results between 100 to 125 mg/dL indicate increased risk for diabetes (prediabetes). Fasting plasma glucose results greater than or equal to 126 mg/dL meet the criteria for diagnosis of diabetes. In the absence of unequivocal hyperglycemia, results should be confirmed by repeat testing. In a patient with classic symptoms of hyperglycemia or hyperglycemic crisis, random plasma glucose results greater than or equal to 200 mg/dL meet the criteria for diagnosis of diabetes. Reference: Standards of Medical Care in Diabetes 2016, Indian Diabetes Association. Diabetes Care. 2016.39(Suppl 1). Performed By: #### H ISTCL #### [facility] CLIA [id number] [address] [place] [address] Potassium [Moles/Vol] 4.6 mmol/L Normal 3.7-5.1 [facility] Comment on above: Order Comment: Speci men Type: BLOOD SPECIMEN Performed By: #### H ISTCL #### [facility] CLIA [id number] [address] [place] [address] Sodium [Moles/Vol] 132 mmol/L Low 136-144 [facility] Comment on above: Order Comment: Speci men Type: BLOOD SPECIMEN Performed By: #### H ISTCL #### [facility] CLIA [id number] [address] [place] [address] Urea nitrogen [Mass/Vol] 18 mg/dL Normal 9-24 [facility] Comment on above: Order Comment: Speci men Type: BLOOD SPECIMEN Performed By: #### H ISTCL #### [facility] CLIA [id number] [address] [place] [address] CASE MANAGEMon 07-24-2020 CASE MANAGEM HNO ID: [id number] Author: Octavia (Rn) INDY Bennett Service: Nursing Author Type: Registered Nurse Type: Care Mgt Progress Note Filed: 07/24/2020 12:23 PM Note Text: CARE MANAGEMENT PROGRESS NOTE SERVICE DATE: 07/24/2020 SERVICE TIME: 12:11 PM LOS: 7 days Spoke to patient over room phone d/t current isolation precautions. Discussed plans after d/c from SNF after course of IV ATBs is complete. Per patient, he has an apartment but does not have electricity or gas currently d/t inability to pay for those services. Patient is not currently working. Tried to discuss rehab after SNF but patient did not seem interested. Patient may stay with friends after d/c from facility but is undecided at this time. Per patient, I can't have idle hands. If I go back to my apartment, I'll have idle hands. Discussed acceptance into [facility], as well as [facility] in [place]. Will need precert for all 3 choices. Will obtain final decision from patient tomorrow. TTE to be completed this week. Blood cultures pending, fungal testing pending. Will need final recs for IV ATB/fungal treatment. PICC placed. Will follow very closely. SIGNATURE: Octavia Bennett RN PATIENT NAME: Khanh De La Vega DATE: July 24, 2020 TIME: 12:11 PM PAGER/CONTACT #: [phone] Normal [facility] CBC (hemogram) Bld Autoon Erythrocyte distribution width (RBC) [Ratio] 14.3 % Normal 11.5-15.0 [facility] Comment on above: Order Comment: Speci men Type: BLOOD SPECIMEN Performed By: #### 6 00-7 #### [facility] CLIA [id number] [address] [place] [address] Hematocrit (Bld) [Volume fraction] 30.1 % Low 39.0-51.0 [facility] Comment on above: Order Comment: Speci men Type: BLOOD SPECIMEN Performed By: #### 6 00-7 #### [facility] CLIA [id number] [address] [place] [address] Hemoglobin (Bld) [Mass/Vol] 10.0 g/dL Low 13.0-17.0 [facility] Comment on above: Order Comment: Speci men Type: BLOOD SPECIMEN Performed By: #### 6 00-7 #### [facility] CLIA [id number] [address] [place] [address] MCH (RBC) [Entitic mass] 27.5 pg Normal 26.0-34.0 [facility] Comment on above: Order Comment: Speci men Type: BLOOD SPECIMEN Performed By: #### 6 00-7 #### [facility] CLIA [id number] [address] [place] [address] MCHC (RBC) [Mass/Vol] 33.2 g/dL Normal 30.5-36.0 [facility] Comment on above: Order Comment: Speci men Type: BLOOD SPECIMEN Performed By: #### 6 00-7 #### [facility] CLIA [id number] [address] [place] [address] MCV (RBC) [Entitic vol] 82.9 fL Normal 80.0-100.0 [facility] Comment on above: Order Comment: Speci men Type: BLOOD SPECIMEN Performed By: #### 6 -7 #### [facility] CLIA [id number] [address] [place] [address] Nucleated RBC (Bld) [#/Vol] 10*3/uL Normal <0.01 [facility] Comment on above: Order Comment: Speci men Type: BLOOD SPECIMEN Performed By: #### 6 7 #### [facility] CLIA [id number] [address] [place] [address] Platelet mean volume (Bld) [Entitic vol] 11.5 fL Normal 9.0-12.7 [facility] Comment on above: Order Comment: Speci men Type: BLOOD SPECIMEN Performed By: #### 6 7 #### [facility] CLIA [id number] [address] [place] [address] Platelets (Bld) [#/Vol] 227 10*3/uL Normal 150-400 [facility] Comment on above: Order Comment: Speci men Type: BLOOD SPECIMEN Performed By: #### 6 7 #### [facility] CLIA [id number] [address] [place] [address] RBC (Bld) [#/Vol] 3.63 10*6/uL Low 4.20-6.00 [facility] Comment on above: Order Comment: Speci men Type: BLOOD SPECIMEN Performed By: #### 6 -7 #### [facility] CLIA [id number] [address] [place] [address] WBC (Bld) [#/Vol] 25.54 10*3/uL High 3.70-11.00 [facility] Comment on above: Order Comment: Speci men Type: BLOOD SPECIMEN Performed By: #### 6 -7 #### [facility] CLIA [id number] [address] [place] [address] NURSING PROGon 07-24-2020 NURSING PROG HNO ID: [id number] Author: Candelaria IrahetaRn) INDY Sanon Service: Nursing Author Type: Registered Nurse Type: Nursing Progress Note Filed: 07/24/2020 6:34 AM Note Text: Nursing Progress Note Patient Name: Khanh De La Vega Patient Location: [id number]/[facility]0-7 __ Patient's temp at 2220 (07/23/20) was 38.3, so RN gave Tylenol 650mg PO at 2226 (07/23/20). RN rechecked temp at 2350 (07/23/20) and temp=39.3. RN paged [facility] to let them know of the temperature jump and to ask if there was any other med/imntervention they wanted to do since RN already gave Tylenol. [facility] MD stated to recheck temp in an hour or so and to monitor. No orders received at this time. Will continue to monitor. This note was completed by: Candelaria Sanon RN [facility] PLAN OF CAREon 07-24-2020 PLAN OF CARE HNO ID: [id number] Author: Fortunato Corcoran Service: Hospital Medicine Author Type: Resident Type: Plan of Care Filed: 07/24/2020 4:20 PM Note Text: Called [facility] lab. Confirmed that his blood cultures drawn on 07/15 and 07/16 have showed no growth. Called the patient in his room again and informed him the same. Fortunato Corcoran MD PGY-1 Internal Medicine Pager [phone] 07/24/2020 4:20 PM [facility] PROGRESSon 07-24-2020 PROGRESS HNO ID: [id number] Author: Marilyn Graham Service: Pain Management Author Type: Physician Type: Progress Notes Filed: 07/24/2020 9:19 AM Note Text: Name: KHANH DE LA VEGA Age: [age] year old PAIN MANAGEMENT: Back pain, TV endocarditis, IVDA; opiate dependent Pain Description: Comfortably when seen earlier; some back pain Interval HPI: T-max to 39.3. Room air 95%. Denies respiratory symptoms Blood cultures remain negative. Remains on vancomycin plus cefepime. Repeat blood cultures 07/23. Repeat TTE later this week per ID 24H Comfort Meds: Tylenol 650 mg x 3 Methadone 10 mg twice daily x2 Methadone 5 mg x 5 Antibiotic Therapy: Cefepime, vancomycin Subjective HPI: 35-year-old male with history of active IVDA (heroin, fentanyl, methamphetamine-daily times years), hepatitis C presented to [facility] 07/13 with worsening fatigue, fevers. Patient was noted to have leukocytosis; urine drug screen positive for opiates and amphetamines. TTE demonstrated 0.5 x 1 cm tricuspid valve vegetation. Patient was started on IV vancomycin and Zosyn. He was briefly treated with Suboxone for opiate withdrawal. He was transferred to [facility] 07/17 for evaluation by CTS for possible surgery. Patient states he last used IV heroin and methamphetamine on 07/13. He was intolerant of Suboxone in the past due to GI upset. He had been on it for about 3 months 5 years ago. He has not been on methadone maintenance. He complains of back pain as well as some mild withdrawal symptoms. OARRS Review: 1 prescription [place] 5/325 #10 Current Facility-Administered Medications Medication Dose Route Frequency Provider Last Rate Last Dose - methadone 10 mg tab(s) (DOLOPHINE) 10 mg ORAL BID Heike (Rodríguez) MD Floyd 10 mg at 07/24/20 0914 - sodium chloride 0.9 % (flush) 10 mL (BD POSIFLUSH) 10 mL INTRAVENOUS q 12 H Heike (Rodríguez) MD Floyd 10 mL at 07/24/20 0915 - sodium chloride 0.9 % (flush) 20 mL (BD POSIFLUSH) 20 mL INTRAVENOUS PRN Heike (Rodríguez) MD Floyd - bisacodyl 10 mg suppository (DULCOLAX) 10 mg RECTAL DAILY PRN Heike (Rodríguez) MD Floyd - prochlorperazine 10 mg tab(s) (COMPAZINE) 10 mg ORAL q 6 H PRN Heike (Rodríguez) MD Floyd - vancomycin iv piggyback 1.5 g in D5W 250 mL (VANCOCIN) 1.5 g INTRAVENOUS q 8 H Heike Quevedo) MD Floyd 125 mL/hr at 07/23/202348 1.5 g at 07/23/20 2349 - senna-docusate 8.6-50 mg 2 tablet (SENNA-S) 2 tablet ORAL BID Heike Quevedo) MD Floyd 2 tablet at 07/24/2014 - polyethylene glycol 3350 17 g packet (MIRALAX, GLYCOLAX) 17 g ORAL DAILY Heike (Rodríguez) MD Floyd 17 g at 07/22/20 1000 - methadone 5 mg tab(s) (DOLOPHINE) 5 mg ORAL q 4 H PRN Heike (Rodríguez) MD Floyd 5 mg at 07/24/203 - nicotine 14 mg/24 hr 1 Patch (NICODERM) 1 Patch TRANSDERMAL DAILY Heike Quevedo) MD Floyd 1 Patch at 07/23/20 0812 And - nicotine -- REMOVE patch OTHER DAILY Heike (Rodríguez) MD Floyd And - nicotine - verify patch OTHER q 8 H Heike (Rodríguez) MD Floyd - cefepime 2 g in D5W 100 mL MB+ (MAXIPIME) 2 g INTRAVENOUS q 8 HR Heike Quevedo) MD Floyd 200 mL/hr at 07/24/203 2 g at 07/24/20 0443 - vancomycin dosing and monitoring per pharmacy OTHER As Directed Heike Quevedo) MD Floyd - enoxaparin 40 mg injection (LOVENOX) 40 mg SUBCUTANEOUS DAILY Heike (Rodríguez) MD Floyd 40 mg at 07/24/20 0914 - ondansetron 4 mg tab(s) (ZOFRAN) 4 mg ORAL q 6 H PRN Heike Barrientos MD Or - ondansetron (PF) 4 mg injection (ZOFRAN) 4 mg INTRAVENOUS q 6 H PRN Heike (Rodríguez) MD Floyd 4 mg at 07/23/20 0813 - acetaminophen 650 mg tab(s) (TYLENOL) 650 mg ORAL q 6 H PRN Heike Quevedo) MD Floyd 650 mg at 10/26/20 2226 - hydrOXYzine HCl 50 mg tab(s) (ATARAX) 50 mg ORAL q 6 H PRN Heike (Res) MD Floyd 50 mg at 07/23/20 1317 No medications prior to admission. Social History Tobacco Use - Smoking status: Current Every Day Smoker Packs/day: 1.00 Types: Cigarettes - Smokeless tobacco: Never Used Substance Use Topics - Alcohol use: Yes Comment: socially - Drug use: Yes Types: Crystal Meth, Marijuana, Heroin, Amphetamines Comment: pt does inject No family history on file. PAST SURGICAL HISTORY Procedure Laterality Date - IR VASCULAR ACCESS TEAM PICC INSERTION RADIO 07/23/2020 - ORTHOPEDICS SURGERY HX Right pins placed in right hand ROS: All of the following reviewed and negative except as noted below: Significant for HPI GENERAL: no fever, chills, sweats, weight loss, fatigue, generalized weakness HEENT: no headache, vision changes, eye discomfort, hearing change, ear discomfort, sinus pain, nasal discharge or congestion, oral lesions, soreness, dental problem NECK: no adenopathy, discomfort, change in ROM CHEST: no shortness of breath, dyspnea on exertion, wheezing, cough, sputum production or chest pain HEART: no chest pain, palpitations, syncope ABDOMEN: no nausea, vomiting, constipation, diarrhea, abdominal pain : no dysuria, urgency, frequency, history of stones, incontinence NEURO: no confusion or alteration in consciousness, slurred speech, seizure, focal weakness EXTREMITIES: no new pain, edema, change in ROM HEME: no new adenopathy, bruises, petechiae PSYCH: no depression, anxiety, agitation PAIN PSYCHIATRIC EXAM: GENERAL: alert, oriented to person, place, time JUDGMENT AND INSIGHT: intact APPEARANCE: neatly groomed DEMEANOR: coooperative, not hostile, mistrustful, preoccupied, or demanding ACTIVITY: normal, not hyperactive or hypoactive, no tremors, tics EYE CONTACT: normal SPEECH: normal, rate, volume, articulation, coherence, spontaneity MOOD: normal, without overt sadness, grief, anxiety, appropriate to situation IDEATION: Deferred MEMORY: intact PHYSICAL EXAMINATION: GENERAL: well nourished and developed; no acute distress; alert and oriented x 3; intact judgement and insight HEENT: no evidence of trauma; cranial nerves intact; eyes clear EOMI; no hearing deficits apparent; nasal passages unremarkable; throat and mucous membranes clear NECK: supple without lymphadenopathy; no JVD; no thyromegaly CHEST: clear bilaterally to auscultation; normal chest movement; no rales or rhonchi HEART: regular rate and rhythm, 2/6 systolic murmur ABDOMEN: soft; nondistended; bowel sounds present; no hepatomegaly; no splenomegaly; no tenderness EXTREMITIES: no evidence of clubbing; no cyanosis; no deformity; no joint effusion; no edema NEURO: cranial nerves intact; no focal deficits; no confusion; no tremor; sensorium normal SKIN: no rash; no skin breakdown; no decubitus lesions HEME: no bruising; no adenopathy PSYCH: no evidence of depression; no anxiety; no agitation; no apparent hallucinations BP 100/58 Pulse 88 Temp 37.4 ?C (99.3 ?F) (Oral) Resp 18 Ht 175.3 cm (5' 9) Wt 73.3 kg (161 lb 9.6 oz) SpO2 95% BMI 23.86 kg/m? BMI 23.86 kg/(m2) ABNORMAL/NEW FINDINGS: NONE RADIOLOGY/DIAGNOSTICS: LABORATORY: CBC: Recent Labs 07/24/20 0451 WBC 25.54* RBC 3.63* HB 10.0* HCT 30.1* PLT 227 MCV 82.9 MCH 27.5 MPV 11.5 CMP: Recent Labs 07/24/201 NA 132* K 4.6 CHLOR 94* CO2 28 BUN 18 CREAT 0.85 GLUC 100* CA 8.6 ANION 10 Heme: No results for input(s): RETICP, ABSRETIC, LD, YEIMY, FE, TIBC, TRANSFERSAT in the last 24 hours. 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 Repeat blood cultures pending. Repeat TTE later this week per ID Continue IV vancomycin and cefepime. Status post prior Suboxone taper at initial presentation at [facility]. Ongoing complaints of back pain, Defer any work-up to primary service. Methadone 10 mg twice daily Methadone 5 mg every 4 hours as needed pain Patient not interested in Suboxone; intolerant of it in the past due to GI upset Plan for continued adjustment of his methadone as needed, Now Covid positive;initially positive on 06/30/2020. Has been moved to isolation bed. Per ID, likely continued shedding viral particles and recovered patient rather than indicative of active disease Marilyn Graham MD ADDENDUM: Portions of this note were copied so as to provide important historical information essential in contributing to medical decision making today. ADDENDUM: Even the portions of this note that were copied have been reviewed completely and edited so as to result in a note that most accurately reflects my complete evaluation today. Normal [facility] PROGRESS HNO ID: [id number] Author: Fortunato Corcoran Service: Hospital Medicine Author Type: Resident Type: Progress Notes Filed: 07/24/2020 1:24 PM Note Text: Attestation signed by Julee Galvez at 07/24/2020 4:46 PM (Updated) Discussed with team, appreciate Dr. Corcoran's follow up with [facility] today - all cultures prior to transfer here remain negative. Pt seen and evaluated today at 1330, he was again sitting up in bed, looking at photographs, looked tired, said 'I can't sleep at night when I am hungry, they wouldn't let me eat last night'. GRICELDA canceled again today, TTE planned instead. We reviewed plan of care. We talked about eventual dc planning - pt says he is in a program for recovering addicts, called '[facility]', 'they helped me get an apartment, I get money per month that they manage, I had just moved in when I got sick, I don't have any utilities on'. 07/24/20 0135 07/24/20 0545 07/24/20 0700 07/24/20 0913 BP: 100/58 Pulse: 88 Resp: 18 Temp: 37.9 ?C (100.2 ?F) 37.4 ?C (99.3 ?F) 37.2 ?C (99 ?F) 37.4 ?C (99.3 ?F) TempSrc: Oral Oral Oral Oral SpO2: 95% Weight: Height: GEN - as above, NAD, does look tired HEENT - mouth moist CARD - RRR PULM - CTABL, no cough ABD - soft, nontender EXT - no edema, no change in tattoos, no rash NEURO - no agitation or confusion Disposition - as above and below, await final plan of care from ID, pt remains on 2 IV abx, cultures neg to date both here and at [place]. Unclear if pt will need long course of abx, or if work up remains neg, will be watched off abx, or if antifungal med will be added as pt continues to spike fevers, with elevated WBC. Attending Note I personally saw and examined the patient. I reviewed the resident's note. I agree with the resident's assessment and plan unless otherwise noted. Signature: Julee Galvez MD Date: 07/24/2020 Time: 4:44 PM HOUSE MEDICINE SERVICE PROGRESS NOTE SERVICE DATE: July 24, 2020 NIGHT AND WEEKEND COVERAGE: From 6 AM to 5 PM: You may reach the House Medicine sales and marketing intern currently assigned to this patient by finding their pager number on the treatment team (they will be assigned as the sales and marketing intern or resident). It is the last four digits in the phone number beginning with ([phone]). We encourage the use of [employer] Secure Chat. SUBJECTIVE HPI and brief hospital course: Patient is a 35 yr male who is a chronic IVDU since 2009 and Hep C positive ( antibody positive on 11/23/19), presented to the [facility] for chronic fatigue on 07/13/20. He was found to have opiate withdrawal symptoms and had spiking fevers maximum temp being 102 F, raised WBC and negative blood cultures (07/15). His urine tox was positive for opiates, amphetamines and opiates. 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 ID consultation was done and his zosyn was switched to cefepime. He was treated for b with buprenorphine which was tapered. ? He was found to be negative for HIV and Hep B and his WBCs started trending down, however he still spiked fevers. Repeat blood cultures on 07/15 were sent which is still pending. He was transferred to [facility] for CT surgery evaluation for possible surgery for his IE. ? At the time of admission, patient was febrile 102 F. Complained of global pain. He admitted to intermittent abdominal discomfort and said he had been constipated for 3 days. He denied any chest pain, palpitations, lightheadedness, or bilateral LL swelling. He said his last IVDU was on Thursday morning (07/13/20) before he presented to the hospital. He denied the use of leg veins for the same. CTS saw the patient and recommend a GRICELDA for further evaluation. However given his return to covid positive status, that may be delayed. ID was also following the patient and they recommended starting him on vanc plus cefepime. His blood Cxs from here as well as [facility] have been negative as per Dr Bowens's note on 07/19. Of note, he was covid positive on 06/29/20 however he was tested negative during his hospital admission in [place]. However his COVID result again came positive and he moved to isolation laird. Interval Events: Patient's GRICELDA was postponed. He is NPO since midnight today and will try to see if it can be done today. He denied any SOB or chest pain. He does endorse some back pain. He had fever episodes overnight(recieved tylenol). OBJECTIVE Medications: IV Infusions: Scheduled: - methadone, 10 mg, BID - sodium chloride 0.9 % (flush), 10 mL, q 12 H - vancomycin, 1.5 g, q 8 H - senna-docusate, 2 tablet, BID - polyethylene glycol 3350, 17 g, DAILY - nicotine, 1 Patch, DAILY And - nicotine -- REMOVE patch, , DAILY And - nicotine - verify patch, , q 8 H - cefepime, 2 g, q 8 HR - vancomycin dosing and monitoring per pharmacy, , As Directed - enoxaparin, 40 mg, DAILY PRN: - sodium chloride 0.9 % (flush), 20 mL, PRN - bisacodyl, 10 mg, DAILY PRN - prochlorperazine, 10 mg, q 6 H PRN - methadone, 5 mg, q 4 H PRN - ondansetron, 4 mg, q 6 H PRN Or - ondansetron (PF), 4 mg, q 6 H PRN - acetaminophen, 650 mg, q 6 H PRN - hydrOXYzine HCl, 50 mg, q 6 H PRN Vital Signs: BP 133/84 Pulse 90 Temp (Src) 99.3 (Oral) Resp 18 Ht 5' 9 (1.75m) Wt 161 lb 9.6 oz (73.3kg) SpO2 97% BMI 23.85 kg/(m2). O2 Therapy: Room Air Patient Vitals for the past 24 hrs: Pulse BP 07/24/20 0700 88 100/58 07/23/20 2220 90 133/84 07/23/20 1806 67 100/64 07/23/20 0809 73 101/60 Physical Exam Performed: Due to the current efforts to prevent transmission of COVID-19 and also the need to preserve PPE for caregivers, a hfze-vq-wuti encounter with the patient was not performed. That being said, all relevant records and diagnostic tests were reviewed, including laboratory results and imaging. Please reference attending physician documentation for physical exam. Care will be coordinated with the team members. Lines, Drains, and Airways Line Central Line Single Lumen 07/23/20 1447 Peripherally Inserted (PICC) Right Arm 4.0 Bangladeshi less than 1 day Reviewed lines and needs to be continued: REASONS: Intravenous antibiotics Labs: CBC: Recent Labs 07/24/20 0451 07/23/20 0610 07/22/20 0323 07/21/20 0559 07/20/20 0554 07/19/20 0600 07/17/20 2216 WBC 25.54* 26.53* 22.21* 21.81* 19.91* 20.38* 15.34* HB 10.0* 9.9* 10.5* 10.3* 10.1* 10.5* 10.8* HCT 30.1* 30.9* 33.3* 31.9* 30.9* 31.4* 32.2* PLT 227 -- 265 243 229 209 191 MCV 82.9 83.3 85.2 83.9 83.7 82.0 82.4 RDWCV 14.3 14.1 13.8 13.9 13.8 13.9 13.8 NEUTP -- -- 70.2 -- -- -- -- ABSNEUT -- -- 15.60* -- -- -- -- LYMPHP -- -- 17.1 -- -- -- -- MONOP -- -- 8.5 -- -- -- -- COAG: No results for input(s): APTT, INR in the last 168 hours. BMP: Recent Labs 07/24/2045007/23/2060907/22/203 07/21/20 0559 07/20/20 1548 07/20/20 0554 07/19/20 0600 07/17/206 GLUC 100* 100* 110* 94 -- 106* 102* 111* NA 132* 127* 130* 128* 130* 126* 128* 130* K 4.6 4.4 4.3 4.5 -- 4.2 4.3 4.3 CHLOR 94* 94* 92* 92* -- 92* 96* 93* CO2 28 25 31* 27 -- 28 25 26 ANION 10 8* 7* 9 -- 6* 7* 11 BUN 18 15 12 13 -- 16 15 10 CREAT 0.85 0.76 0.72* 0.70* -- 0.73 0.75 0.74 CHEM: Recent Labs 07/24/2045007/23/2060907/22/20 0323 07/21/20 0559 07/20/20 0554 07/19/20 0600 07/17/20 2216 TPROT -- -- -- -- -- -- 7.9 CA 8.6 8.8 8.7 8.8 8.5 8.8 8.6 MG -- -- -- -- -- -- 1.8 HEPATIC: Recent Labs 07/17/20 2216 ALKPHOS 120* ALT 13 AST 27 TBILI 0.3 URINALYSIS:No results for input(s): PH, SPGR, UGLUC, UBILI, UKET, UHB, UPROT, UROBIL, UWBC, SSA in the last 168 hours. Invalid input(s): NITR CARDIAC: No results for input(s): CKTEST, CKMB, CKMBP in the last 168 hours.TROPONIN@:8,No results found for: BNP:8)@ No intake or output data in the 24 hours ending 07/24/20 0702 Serum creatinine: 0.76 mg/dL 07/23/20 0610 Estimated creatinine clearance: 134.4 mL/min Standardized Care Interventions: Labs: Routine blood work indicated for tomorrow on account of: suspected infection Assessment/Plan Problem List Infective endocarditis Methamphetamine dependence (HCC) Cannabis dependence (HCC) Nicotine use disorder, F17.2 IVDU (intravenous drug user) Fever Leucocytosis Hepatitis C antibody positive in blood Mild protein-calorie malnutrition (HCC) Hyponatremia COVID-19 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 He is currently on vanc + cefepime CTS wants a GRICELDA for further evaluation however given his COVID status, that may not be done. ID recommends TTE. PICC line has been ordered for 6 week Abx Rx and it was placed on 07/23. COVID positive ID is following and patient has been moved to the isolation laird. Constipation -dc morphine and oxycodone -Started on senna docusate and miralax. Hyponatremia(Euvolemic ) Was 132 today. Will continue to monitor for symptoms and monitor daily Na level. Urine / serum osmolality at 564/275 . Urine Na at 64. Likely 2/2 SIADH Continue fluid restriction. Patient encouraged to limit H2O consumption. . Anemia Likely anemia of chronic disease. Today's level was 10. Nicotine dependence. He is on a nicotine patch. H/o opioid use He is c/o pain in back and rarely shoulder likely due to opioid withdrawal. Pain management is on board. {TIP Manually update assessment and plan for new or resolved problems above Launch Problem List (No need to delete will not show in completed note) :[id number]} Medication and Non-Pharmacologic VTE Prophylaxis/Anticoagul ants Anticoagulant AND Antiplatelet Medications (From admission, onward) Start Dose Route Frequency Ordered Stop 07/17/202099 enoxaparin 40 mg injection (LOVENOX) (Medical Risk Categories) 40 mg SUBCUTANEOUS DAILY 07/17/202044 -- 07/17/202044 pneumatic compression stockings (ct,mi) 07/17/202044 activity - mobilize patient (ct,mi) VTE Prophylaxis: VTE prophylaxis appropriate GI Prophylaxis: Not indicated Telemetry: Not indicated Disposition: Home Code Status: Not on file Plan of care discussed with: Provider SIGNATURE: Fortunato Corcoran MD PATIENT NAME: Khanh De La Vega DATE: July 24, 2020 TIME: 7:11 AM Page 0815 Normal [facility] THERAPY NTon 07-24-2020 THERAPY NT HNO ID: [id number] Author: Tammi IrahetaOtr/LJason Krueger Service: Occupational Therapy Author Type: Occupational Therapist Type: Therapy (PT/OT/Speech/Resp) Filed: 07/24/2020 1:29 PM Note Text: Occupational Therapy Treatment SERVICE DATE: 07/24/2020 SERVICE TIME: 1112 to 1125 ROOM: [place] [address] Recommended Discharge Disposition: Home Recommended Discharge Disposition Comments: pt appears to be at his baseline for functional mobility and ADL performance. pt does not require further OT services -- OT signing off Anticipated Discharge Needs: Physical Assist at Home;Supervision at Home Physical Assist at Home for: Cleaning;Laundry;Meals ;Shopping;Transportati on Supervision at Home due to: (change in medical status) OT 6 Clicks Score: 24 Patient appears to be back at his baseline of independent with mobility and activities of daily living. Patient able to complete oral hygiene standing at sink without device independent. Patient has met all OT goals and will be discharged from OT services. Please re-consult if new deficits arise or decline in function occurs during admission. Precautions/Activity Restrictions: Lines/Tubes/Drains Isolation Type: Contact/Droplet Current Hospital Course: Pt initially at [facility] 07/13 with fatigue--developed a fever--had GRICELDA and shown to have infective endocarditits (tricuspid valve vegitation)--transferr ed to [facility] 07/17 Reason for Hospital Admission: infective endocarditis Relevant Past Medical History: major depressive disorder with psychotic features, substance induced mood disorder, hepatitis C antibody positive in blood Response to Therapy Interventions: Good participation in activities Occupational Therapy Problem List: Cognitive Deficit;Safety Deficits;Impaired Self Care;Decreased Activity Tolerance Cognition/Communicatio n Deficits Responsiveness: Alert, Awake Follows Commands: 3-step Commands Memory Deficits: Short Term Treatment Interventions: Self Care / Home Management;Education Home Environment Patient Lives With: Self/Alone(pt reports that he lives in an apt) Assistance Available: shift supervisor melting(family and friends ) Entry To Home: Stairs Number Of Stairs Into Home: 12 Number Of Stairs To Bed/Bath: 0 Tub/Shower Type: tub shower Laundry: completes at laundry mat Equipment Owned: (none) Prior Functional Level: Within Functional Limits Prior Functional Level Comments: Pt stated that he was independent in all areas of ADL's and IADL's. Pt stated that he is unable to drive but rides his bike or walks for transportation Patient Report: pt pleasant and agreeable to therapy CURRENT FUNCTIONAL STATUS: Most recent performance Current Activities of Daily Living Assist Level Additional Information Feeding Independent Grooming Independent Bathing Upper Body Independent Bathing Lower Body Independent Dressing Upper Body Independent Dressing Lower Body Independent Toileting Independent Functional Mobility Assist Level Additional Information Rolling Independent Supine to Sit Independent Sit to Supine Independent Scooting Independent Sit to Stand Independent Stand to Sit Independent Bed to Chair Toilet/Commode Contact Guard Assistance Functional Mobility Independent (No device) Blank rojas indicate activity not attempted Hand Dominance: Left Range of Motion: WFL Strength: WFL Balance: Static Sitting;Dynamic Sitting;Static Standing;Dynamic Standing Static Sitting Balance: Good Patient able to maintain balance without handhold support, limited postural sway Dynamic Sitting Balance: Good Patient accepts moderate challenge, able to maintain balance while picking up object off floor Static Standing Balance: Good Patient able to maintain balance without handhold support, limited postural sway Dynamic Standing Balance: Good Patient accepts moderate challenge, able to maintain balance while picking up object off floor Activity Tolerance: Standing Activity Sitting Activity: bed mobility, lower body dressing, Sitting Activity Tolerance (in minutes): 5 Standing Activity: oral care standing at sink and functional mobility within room Standing Activity Tolerance (in minutes): 13 Learning/Educational Needs: Discharge Plan;Functional Activities/Mobility;Se lf Care;Safety Goals for Plan of Care: Patient /Caregiver Goals: Go Home;Care For Self Upper Body Bathing with: Independent Lower Body Bathing with: Independent Lower Body Dressing with: Independent Chair Transfer with: Independent Toilet Transfer with: Independent Tolerate (minutes of functional activity): 25 Functional Activity with: Independent Additional Goal 1: Pt will follow 3-step commands 100% time Progress Toward Goals: Progressing as expected Rehab Potential: Good Patient will be discontinued from Occupational Therapy when no further skilled needs are identified in this setting. PLAN: Treatment Frequency (times per week): Discontinue Therapy Services Reasons Therapy Services Discontinued: Goals met Current admission Plan of Care developed with: Patient TREATMENT INTERVENTIONS: Therapy Diagnosis: Decreased activities of daily living (ADL);General symptoms and signs-other Interventions Provided: Self Skilled Nursing Management ([id number]) Self Skilled Nursing Management ([id number]) Treatment Minutes: 13 $ Self Skilled Nursing Management (63742) Billed Units: 1 unit Educated on the role of OT in the acute care setting. Instructed patient from supine to sit edge of bed and provided cues for proper hand placement to improve bed mobility. Instructed patient from sit to stand and provided physical assist and cues for proper hand placement and fall prevention (fall guarding). Provided education on safe navigation and fall prevention for functional mobility from bed to bathroom to perform oral hygiene while standing at sink. Provided cues and physical assist for safe hand placement for stand to sit on edge of bed. Educated pt on fall prevention strategies, reinforcing the use of their call light / up with assistance for functional mobility; Pt left in bed with call light in reach upon OT exit. Educated patient and communicated on whiteboard mobility level 4. Training AND education provided in: Bed mobility, Benefits of in-hospital mobility, Grooming tasks, Role of Occupational Therapy, Standing balance to improve independence with ADLs/self-care, Transfer Training - Sit to stand, Transfer Training ? Toilet/commode The following therapeutic skills were used: Activity dosing, Cuing verbal, Cuing tactile Total Timed Code Treatment Minutes: 13 Total Treatment Time (minutes): 13 Please see discipline specific clinical documentation flowsheet for complete details for this therapy evaluation/treatment. SIGNATURE: LUDIVINA Eden/Sabrina PATIENT NAME: Khanh De La Vega DATE: July 24, 2020 TIME: 1:24 PM Normal [facility] Bacteria Bld Culton 07-23-20 20 Bacteria identified Cx Nom (Bld) CULTURE, BLOOD: No growth 5 days Normal [facility] Comment on above: Performed By: #### 6 00-7 #### [facility] CLIA [id number] [address] [place] [address] Bacteria identified Cx Nom (Bld) CULTURE, BLOOD: No growth 5 days Normal [facility] Comment on above: Performed By: #### 6 00-7 #### [facility] CLIA [id number] [address] [place] [address] Bas Metab 2000 Pnl SerPlon 1 Anion gap [Moles/Vol] 8 mmol/L Low 9-18 [facility] Comment on above: Order Comment: Speci men Type: BLOOD SPECIMEN Performed By: #### V ANCRA #### [facility] CLIA [id number] [address] [place] [address] Calcium [Mass/Vol] 8.8 mg/dL Normal 8.5-10.2 [facility] Comment on above: Order Comment: Speci men Type: BLOOD SPECIMEN Performed By: #### V ANCRA #### [facility] CLIA [id number] [address] [place] [address] Chloride [Moles/Vol] 94 mmol/L Low 97-105 [facility] Comment on above: Order Comment: Speci men Type: BLOOD SPECIMEN Performed By: #### V ANCRA #### [facility] CLIA [id number] 1 [place] [address] CO2 [Moles/Vol] 25 mmol/L Normal 22-30 [facility] Comment on above: Order Comment: Speci men Type: BLOOD SPECIMEN Performed By: #### V ANCRA #### [facility] CLIA [id number] [address] [place] [address] Creatinine [Mass/Vol] 0.76 mg/dL Normal 0.73-1.22 [facility] Comment on above: Order Comment: Speci men Type: BLOOD SPECIMEN Performed By: #### V ANCRA #### [facility] CLIA [id number] [address] [place] [address] GFR/1.73 sq M.predicted MDRD (S/P/Bld) [Vol rate/Area] mL/min/{1.73_m2} Normal [facility] Comment on above: Order Comment: Speci men Type: BLOOD SPECIMEN Result Comment: >60 eGFR (Estimated GFR) Units of measure: mL/min/1.73 meters squared eGFR is derived from the reexpressed MDRD Study equation using the following parameters: serum creatinine, age, gender and race. The creatinine assay has been calibrated to be traceable to IDMS. An eGFR <60 mL/min/1.73m2 for >3 months is consistent with chronic kidney disease. Refer to KDOQI guidelines for clinical interpretation. In patients with unstable renal function, e.g. those with acute kidney injury, the eGFR may not accurately reflect actual GFR. Performed By: #### V ANCRA #### [facility] CLIA [id number] [address] [place] [address] Glucose [Mass/Vol] 100 mg/dL High 74-99 [facility] Comment on above: Order Comment: Speci men Type: BLOOD SPECIMEN Result Comment: The [place] Diabetes Association (ADA) provides guidance for cutoff values for fasting glucose and random glucose. The ADA defines fasting as no caloric intake for at least 8 hours. Fasting plasma glucose results between 100 to 125 mg/dL indicate increased risk for diabetes (prediabetes). Fasting plasma glucose results greater than or equal to 126 mg/dL meet the criteria for diagnosis of diabetes. In the absence of unequivocal hyperglycemia, results should be confirmed by repeat testing. In a patient with classic symptoms of hyperglycemia or hyperglycemic crisis, random plasma glucose results greater than or equal to 200 mg/dL meet the criteria for diagnosis of diabetes. Reference: Standards of Medical Care in Diabetes 2016, Indian Diabetes Association. Diabetes Care. 2016.39(Suppl 1). Performed By: #### V ANCRA #### [facility] CLIA [id number] [address] [place] [address] Potassium [Moles/Vol] 4.4 mmol/L Normal 3.7-5.1 [facility] Comment on above: Order Comment: Speci [facility] Type: BLOOD SPECIMEN Performed By: #### V ANCRA #### [facility] CLIA [id number] 1 [place] [address] Sodium [Moles/Vol] 127 mmol/L Low 136-144 [facility] Comment on above: Order Comment: Speci men Type: BLOOD SPECIMEN Performed By: #### V ANCRA #### [facility] CLIA [id number] 1 [place] [id number] Urea nitrogen [Mass/Vol] 15 mg/dL Normal 9-24 [facility] Comment on above: Order Comment: Speci men Type: BLOOD SPECIMEN Performed By: #### V ANCRA #### [facility] CLIA [id number] [address] [place] [address] CASE MANAGEMon 07-23-2020 CASE MANAGEM HNO ID: [id number] Author: Octavia (Rn) INDY Bennett Service: Nursing Author Type: Registered Nurse Type: Care Mgt Progress Note Filed: 07/23/2020 8:51 AM Note Text: CARE MANAGEMENT PROGRESS NOTE SERVICE DATE: 07/23/2020 SERVICE TIME: 8:50 AM LOS: 6 days Due to patient's IVDU and current COVID status, referrals sent to multiple other SNFs for potential IV ATBs at d/c. Will continue to follow SIGNATURE: Octavia Bennett RN PATIENT NAME: Khanh De La Vega DATE: July 23, 2020 TIME: 8:50 AM PAGER/CONTACT #: [phone] Normal [facility] CBC (hemogram) Bld Autoon Erythrocyte distribution width (RBC) [Ratio] 14.1 % Normal 11.5-15.0 [facility] Comment on above: Order Comment: Speci men Type: BLOOD SPECIMEN Performed By: #### 6 -7 #### [facility] CLIA [id number] [address] [place] [address] Hematocrit (Bld) [Volume fraction] 30.9 % Low 39.0-51.0 [facility] Comment on above: Order Comment: Speci men Type: BLOOD SPECIMEN Performed By: #### 6 -7 #### [facility] CLIA [id number] [address] [place] [address] Hemoglobin (Bld) [Mass/Vol] 9.9 g/dL Low 13.0-17.0 [facility] Comment on above: Order Comment: Speci men Type: BLOOD SPECIMEN Performed By: #### 6 -7 #### [facility] CLIA [id number] [address] [place] [address] MCH (RBC) [Entitic mass] 26.7 pg Normal 26.0-34.0 [facility] Comment on above: Order Comment: Speci men Type: BLOOD SPECIMEN Performed By: #### 6 00-7 #### [facility] CLIA [id number] [address] [place] [address] MCHC (RBC) [Mass/Vol] 32.0 g/dL Normal 30.5-36.0 [facility] Comment on above: Order Comment: Speci men Type: BLOOD SPECIMEN Performed By: #### 6 00-7 #### [facility] CLIA [id number] [address] [place] [address] MCV (RBC) [Entitic vol] 83.3 fL Normal 80.0-100.0 [facility] Comment on above: Order Comment: Speci men Type: BLOOD SPECIMEN Performed By: #### 6 -7 #### [facility] CLIA [id number] [address] [place] [address] Nucleated RBC (Bld) [#/Vol] 10*3/uL Normal <0.01 [facility] Comment on above: Order Comment: Speci men Type: BLOOD SPECIMEN Performed By: #### 6 00-7 #### [facility] CLIA [id number] [address] [place] [address] Platelet mean volume (Bld) [Entitic vol] Normal [facility] Comment on above: Order Comment: Speci men Type: BLOOD SPECIMEN Result Comment: Unab le to Report. Performed By: #### 6 00-7 #### [facility] CLIA [id number] [address] [place] [address] Platelets (Bld) [#/Vol] Normal [facility] Comment on above: Order Comment: Speci men Type: BLOOD SPECIMEN Result Comment: Plat elets Clumped Estimate Normal. Performed By: #### 6 00-7 #### [facility] CLIA [id number] [address] [place] [address] RBC (Bld) [#/Vol] 3.71 10*6/uL Low 4.20-6.00 [facility] Comment on above: Order Comment: Speci men Type: BLOOD SPECIMEN Performed By: #### 6 00-7 #### [facility] CLIA [id number] [address] [place] [address] WBC (Bld) [#/Vol] 26.53 10*3/uL High 3.70-11.00 [facility] Comment on above: Order Comment: Speci men Type: BLOOD SPECIMEN Performed By: #### 6 00-7 #### [facility] CLIA [id number] [address] [place] [address] CONSULT PROGon 07-23-2020 CONSULT PROG HNO ID: [id number] Author: Travis Carrera (Pharmacist) Service: Pharmacy Author Type: Pharmacist Type: Consult Progress Note Filed: 07/23/2020 4:14 PM Note Text: PHARMACY VANCOMYCIN DOSING NOTE Patient Name: Khanh De La Vega Admission Date: 07/17/2020 Date of Consult: 07/23/2020 Time of Consult: 8:33 AM Indication: Endocarditis Goal Range: 15-25 mcg/mL RECOMMENDATIONS/PLAN: Pharmacy consulted for vancomycin dosing for Khanh De La Vega, a 35 year old, male who is being treated with vancomycin for Endocarditis 1. Patient is currently ordered 1.5 grams q8 hours. Today is day 6 of therapy. 2. The most recent vancomycin level was 18.5 mcg/mL drawn at 1510 on 07/23/20. This is a 7 hour level on the 6th day of therapy. 3. The present dose of vancomycin is the recommended dosage for this patient at this time. Continue therapy as prescribed. 4. The next vancomycin level will be ordered for 07/28/20 unless clinically indicated sooner. (Pharmacy will order) We will follow patient renal function, vancomycin levels and doses with you during the course of therapy. Additional recommendations will appear in follow up notes. If you have any questions, please contact Travis Carrera at [phone]. Age: [age] year old Allergies: ALLERGIES Allergen Reactions - Penicillins Swelling - Sulfa (Sulfonamide * Swelling Last 3 Encounter Wt Readings: Date: Wt: 07/17/2020 73.3 kg (161 lb 9.6 oz) 11/23/2019 81.6 kg (180 lb) 02/25/2018 81.6 kg (180 lb) Last 1 Encounter Ht Readings: Date: Ht: 07/17/2020 175.3 cm (5' 9) CrCl: 134 mL/min Temp (24hrs), Av.6 ?C (99.7 ?F), Min:36.4 ?C (97.5 ?F), Max:38.8 ?C (101.8 ?F) - Current Temp: 36.8 ?C (98.2 ?F) Labs BUN (mg/dL) Date Value 07/23/2020 15 07/22/2020 12 07/21/2020 13 02/10/2018 16 04/23/2017 8 04/21/2017 10 Creatinine (mg/dL) Date Value 07/23/2020 0.76 07/22/2020 0.72 (L) 07/21/2020 0.70 (L) 02/10/2018 0.92 04/23/2017 0.81 04/21/2017 0.88 WBC Date Value 07/23/2020 26.53 k/uL (H) 07/22/2020 22.21 k/uL (H) 07/21/2020 21.81 k/uL (H) 02/10/2018 10.24 thou/cmm (H) 04/23/2017 9.9 thou/cmm 04/21/2017 9.9 thou/cmm Vancomycin Levels: Vancomycin (ug/mL) Date/Time Value 07/21/2020 0559 23.1 (H) 07/20/2020 0554 17.4 Lyndsay Penny (Youth Pastor) TRAVIS CARRERA, PHARMACIST [facility] NUTRITIONon 07-23-2020 NUTRITION HNO ID: [id number] Author: Marcia Gonzales) JOSE ANTONIO Colin Service: Nutrition Therapy Author Type: Registered Dietitian Type: Nutrition Filed: 07/23/2020 5:05 PM Note Text: NUTRITION THERAPY PROGRESS NOTE SERVICE DATE: 07/23/2020 SERVICE TIME: 4:56 PM Nutrition Assessment: Recommended Malnutrition Diagnosis: Mild Protein-Calorie Malnutrition (07/18/20 1108 : Denis (Rd) JOSE ANTONIO Carlton) Estimated kilocalorie needs: 2207-5844 Calorie Calculation Method: 25-30 kcals/kg Estimated protein needs (grams): 88-117 Grams protein determined by: 1.2-1.6 g/kg Care Plan: Continue current diet: Regular Supplements: Ensure Max BID Called patient on the phone. He states he is eating all of his meals and taking the Ensure Max protein shakes. BM on 07/19/20 per nursing notes. Monitor and Evaluation: Meet greater than 75% of estimated needs;Monitor labs, I/Os, vital signs, weight;Monitor bowel function Discharge Recommendations: Diet;Oral Supplements Diet: Regular Oral Supplements: of patient's choice Interval History: Khanh De La Vega is being treated for endocarditis and Covid-19. He received a PICC today for IV ATB's. WBC: (07/23) 26.53 Anthropometrics: Height: 175.3 cm (5' 9) Weight: 73.3 kg (161 lb 9.6 oz) Dosing Weight: 73 kg (160 lb 15 oz) Body mass index is 23.86 kg/m?. Normal Weight change percentage over time: - 10 over 8 months (not significant) Intake History: Current Intake: Unable to determine over: 6 days Current Diet: DIET REGULAR DIET NPO SIGNATURE: Marcia Colin RD PATIENT NAME: Khanh De La Vega DATE: July 23, 2020 TIME: 4:56 PM PAGER: [phone] Normal [facility] PLAN OF CAREon 07-23-2020 PLAN OF CARE HNO ID: [id number] Author: Travis Carrera (Pharmacist) Service: Pharmacy Author Type: Pharmacist Type: Plan of Care Filed: 07/23/2020 1:47 PM Note Text: MEDICATION HISTORY AND MEDICATION RECONCILIATION Patient Name:Jannette De La Vega : 1985 Source of history:Patient: Reliability of source: Appears reliable, clearly identified: Medication name, Medication frequency and Timing of last dose, Pharmacy records: [facility] [place] [address] - [address] [facility] [phone] [id number] and [facility] records: Epic Medication Dispense History Medication Nonadherence Identified: No barriers noted The above information represents the best possible medication history: Yes Reconciliation completed? Yes All NON LICENSED OPERATOR medications addressed by LIP Additional comments: Confirmed medications with patient and pharmacist at [facility] - Patient reports using OTC Tylenol and Advil once-twice daily maybe 3 days/week PRN pain (but was not consistently taking - stated it dependent on what he could afford) - [facility] has not filled anything for patient over this past year [id number] Medication List Adjustments: Medication Regimen Changes: None ? Medications Added: None ? Medications Removed: None Short-Term Medications: None Further Clarification Required: None ? ? Patient is a 30 day readmission: No ? Patient Interested in Bedside Delivery: Yes Time Spent Reviewing Patient's Medications: 20 minutes Allergies: ALLERGIES Allergen Reactions - Penicillins Swelling - Sulfa (Sulfonamide * Swelling Preferred Pharmacy: [facility] [place] [address] - [address] [facility] [phone] [id number] Current NON LICENSED OPERATOR Medications: Prior to Admission medications as of 07/23/20 1239 Not on File Lyndsay Penny (Youth Pastor) July 23, 2020 12:36 PM Normal [facility] PROCEDUREon 07-23-2020 PROCEDURE HNO ID: [id number] Author: Iris (Rn) INDY Weaver Service: PICC Team Author Type: Registered Nurse Type: Procedures Filed: 07/23/2020 2:46 PM Note Text: PICC NURSE INSERTION NOTE DATE OF PROCEDURE: July 23, 2020 TIME OF PROCEDURE: 1420 ORDERING PHYSICIAN: Dr. Carranza INFORMED CONSENT: Obtained per hospital policy. INDICATION FOR LINE PLACEMENT: COPAT CONDITION OF LINE PLACEMENT: Sterile PRIMARY PROCEDURALIST: Felicitas Grijalva RN ATMOSPHERIC DRIER TENDER: Iris Weaver RN PRE-PROCEDURE REVIEW ALLERGIES Allergen Reactions - Penicillins Swelling - Sulfa (Sulfonamide * Swelling Known History of Upper Venous Thrombosis: No Known History of Permanent Pacemaker or Automated Implanted Cardiac Device: No Previous Breast Surgery of Lymph Node Dissection: No eGFR-All Other Races Date/Time Value Ref Range Status 07/23/2020 06:10 AM >60 Final Comment: eGFR (Estimated GFR) Units of measure: mL/min/1.73 meters squared eGFR is derived from the reexpressed MDRD Study equation using the following parameters: serum creatinine, age, gender and race. The creatinine assay has been calibrated to be traceable to IDMS. An eGFR <60 mL/min/1.73m2 for >3 months is consistent with chronic kidney disease. Refer to KDOQI guidelines for clinical interpretation. In patients with unstable renal function, e.g. those with acute kidney injury, the eGFR may not accurately reflect actual GFR. eGFR- Date/Time Value Ref Range Status 07/23/2020 06:10 AM >60 Final eGFR Date/Time Value Ref Range Status 02/10/2018 04:30 PM >60 >60mL/min/1.73m2 Final Comment: If the patient is , multiply the result by 1.210. History of Renal Disease: No Ultrasound Assessment Complete: Yes PROCEDURE NARRATIVE SAFE PRACTICE Hand Hygiene per Hospital Policy: Yes Skin Preparation Unit Dose Applicator Used: Chloraprep (CHG + alcohol), allowed to dry. Procedure Surface Cleansed with Antimicrobial Wipes: Yes Barriers Used by Proceduralist and all Assisting Personnel: Yes UNIVERSAL PROTOCOL / SAFETY CHECKLIST Procedure to be performed: peripherally inserted central catheter Sign in Communication: Completed Time Out: Team Confirms the Correct Patient, Correct Procedure, Correct Site and Site Marking, Correct Position (if applicable), Prep and Dry Time (if applicable). Time: 1435 Affirmation of Time Out: N/A Sign Out Discussion: Completed Iris Weaver RN CATHETER PLACEMENT Brand: [employer]ore Me Lot: [id number] Number of Lumens: 1 Type of PICC: Power Injectable PICC Lumen Size: 4 Bangladeshi PLACEMENT TECHNIQUE Lidocaine: Yes, Lidocaine 1% Volume 2 mL Subcutaneous Modified Seldinger Technique Used to Place Line via the Right Basilic Ultrasound Guidance: Yes Number of Attempts at Insertion: 1 Ensured control of guidewire during all aspects of the procedure: Yes Accounted for entire guidewire upon removal: Yes Internal Length: 40 cm External Length: 0 cm Trim Length: 40 cm Mid-Arm Circumference: 26 centimeters Post Insertion Pain Level Related to Procedure: 0 Action Taken to Address Pain: None needed Verified Placement: Blood return and flushes with ease and Tip location system or device indicates the tip is located in the SVC/CAJ. Line was Flushed with 20 cc normal saline Line Secured with: Securement device Sterile Dressing Applied and Dated: Yes Sterile Caps on all Ports Prior to Leaving Procedure Area: Yes, Disinfection caps applied SPECIMENS: None COMPLICATIONS: None Patient Education Materials: Given to patient and Placed in chart [facility] Central Line Insertion Checklist utilized during this procedure QUESTIONS or PROBLEMS: Call [phone] SIGNATURE: Iris Weaver RN PATIENT NAME: Khanh De La Vega DATE: July 23, 2020 TIME: 2:35 PM PAGER/CONTACT PHONE: [phone] Normal [facility] PROGRESSon 07-23-2020 PROGRESS HNO ID: [id number] Author: Stevo Bowens III Service: Infectious Disease Author Type: Physician Type: Progress Notes Filed: 07/23/2020 6:01 PM Note Text: PROGRESS NOTE INFECTIOUS DISEASE Active Antimicrobials (From admission, onward) Start Stop 07/19/20 1500 vancomycin iv piggyback 1.5 g in D5W 250 mL (VANCOCIN) 1.5 g, INTRAVENOUS, EVERY 8 HOURS -- 07/18/20 1300 cefepime 2 g in D5W 100 mL MB+ (MAXIPIME) 2 g, INTRAVENOUS, EVERY 8 HOURS -- 07/17/20 2100 vancomycin dosing and monitoring per pharmacy OTHER, DIRECTED -- ASSESSMENT: 1) Tricuspid valve endocarditis- douglas valve. Culture negative. 2) Fevers- persist 3) leukocytosis rising Patient actually appearing fairly well despite fever persisting and leukocytosis rising. Was up and walking around the room when I saw him. Do wonder though if we are missing something here. Still waiting on the fungal testing Also would wonder about potential for drug fever? Although that wouldn't explain the leukocytosis 4) prior COVID- originally diagnosed on 06/29 with initial symptoms starting on 06/26. Now positive on recheck again although not having symptoms of COVID. I think this is indicative of continued shed of viral particles in recovered patient rather than being indicative of active disease. Estimated Creatinine Clearance: 134.4 mL/min (based on SCr of 0.76 mg/dL). RECOMMENDATIONS: Continue vancomycin plus cefepime Repeat TTE later this week Repeated blood cultures today Considering pre-emptively adding antifungal agent SUBJECTIVE: Interval Events: Patient feeling very well. Not feeling feverish when he has the fevers ROS No shaking chills Mild myalgias- says this is typical for him No nausea or diarrhea No rashes No new joint pains Medications:Reviewed OBJECTIVE: Physical Exam: BP 101/60 Pulse 73 Temp 36.8 ?C (98.2 ?F) (Oral) Resp 20 Ht 175.3 cm (5' 9) Wt 73.3 kg (161 lb 9.6 oz) SpO2 96% BMI 23.86 kg/m? Physical Exam Lab data: WBC Date Value 07/23/2020 26.53 k/uL 07/22/2020 22.21 k/uL 07/21/2020 21.81 k/uL 07/20/2020 19.91 k/uL 07/19/2020 20.38 k/uL 02/10/2018 10.24 thou/cmm 04/23/2017 9.9 thou/cmm 04/21/2017 9.9 thou/cmm 04/17/2014 6.3 thou/cmm Platelet Count Date Value 07/23/2020 Comment: Platelets Clumped Estimate Normal. 07/22/2020 265 k/uL 07/21/2020 243 k/uL 07/20/2020 229 k/uL 07/19/2020 209 k/uL 02/10/2018 299 thou/cmm 04/23/2017 365 thou/cmm 04/21/2017 343 thou/cmm 04/17/2014 305 thou/cmm Creatinine (mg/dL) Date Value 07/23/2020 0.76 07/22/2020 0.72 07/21/2020 0.70 07/20/2020 0.73 07/19/2020 0.75 02/10/2018 0.92 04/23/2017 0.81 04/21/2017 0.88 04/17/2014 0.83 Vancomycin (ug/mL) Date Value 07/23/2020 18.5 07/21/2020 23.1 07/20/2020 17.4 07/19/2020 10.9 AST (U/L) Date Value 07/17/2020 27 04/23/2017 26 ALT (U/L) Date Value 07/17/2020 13 04/23/2017 30 SIGNATURE: Stevo Bowens III, MD PATIENT NAME: Khanh De La Vega DATE: July 23, 2020 TIME: 6:01 PM PAGER/CONTACT #: [phone] [facility] PROGRESS HNO ID: [id number] Author: Grecia (Microwave Engineer Pole Setter) KENNEDY Camacho Service: Cardiovascular Medicine Author Type: Nurse Practitioner Type: Progress Notes Filed: 07/23/2020 8:47 AM Note Text: GRICELDA CHECKLIST Indication: Absolute Contraindications: no ? Esophageal disorders ? Active GI bleed ? Relative Contraindications: no ? Esophageal varices ? Symptomatic hiatal hernia ? H/O: Dysphagia/Odynophagia ? Severe thrombocytopenia (platelets<50), elevated INR>4 or prolonged PTT (>150s) ? test: Not indicated. COVID test: positive Criteria for deep sedation: yes ? Equal to or greater than 3L/min oxygen ? Active IV drug use/alcohol abuse ? On chronic pain therapy (patch, INCIDENT RESPONSE MANAGER pump, meds like methadone, suboxone or naltrexone) ? Weight >350 lb Patient consentable?: yes Location of GRICELDA: POD/EP lab EP NPO for 8 hours: Yes Pt here with medication assisted opioid withdrawal. Previously tested (+) for Covid-19 on 06/29/20. Repeat testing done 07/15/20 was (-) per notes. There is concern for Infective endocarditis suspicion of mobile echodensity attached to subvalvular apparatus of tricuspid valve measuring approximately 1.5 cm x 0.8 cm concerning for possible vegetation. Recommend GRICELDA for further evaluation. Still spiking fevers, and negative BC 07/15, 07/16. On IV ATB, Overnight pt test (+) for Covid-19, moved to 7100. Spoke to Dr. Bowens for infectious Disease, he Stated that he should not have been retested for Covid -19, and concern that fevers are from underlying sepsis, ? Vegetation. Pt currently NPO, on . Pt stable per RN, will arrange for GRICELDA in EP lab. Grecia Camacho APRN.KENNEDY Normal [facility] PROGRESS HNO ID: [id number] Author: Fortunato Corcoran Service: Hospital Medicine Author Type: Resident Type: Progress Notes Filed: 07/23/2020 1:27 PM Note Text: Attestation signed by Julee Galvez at 07/24/2020 4:34 PM Discussed with team, chart reviewed. 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 Overall felt OK, just tired, understood current plan of care. GEN - as above, 35 yo gentleman sitting up in bed, as above HEENT - PERR, mouth moist CARD- RRR, no murmur appreciated PULM - CTABL, no sob or cough ABD - soft, nontender EXT - many tattoos, no edema, no rash, no petechiae NEURO - no focal deficits, no confusion Disposition - as below, await final plan of care from ID, cultures remain negative, pt is being empirically treated for ?endocarditis. Attending Note I personally saw and examined the patient. I reviewed the resident's note. I agree with the resident's assessment and plan unless otherwise noted. Signature: Julee Galvez MD HOUSE MEDICINE SERVICE PROGRESS NOTE SERVICE DATE: July 23, 2020 NIGHT AND WEEKEND COVERAGE: From 6 AM to 5 PM: You may reach the House Medicine sales and marketing intern currently assigned to this patient by finding their pager number on the treatment team (they will be assigned as the sales and marketing intern or resident). It is the last four digits in the phone number beginning with ([phone]). We encourage the use of [employer] Secure Chat. SUBJECTIVE HPI and brief hospital course: Patient is a 35 yr male who is a chronic IVDU since 2009 and Hep C positive ( antibody positive on 11/23/19), presented to the [facility] for chronic fatigue on 07/13/20. He was found to have opiate withdrawal symptoms and had spiking fevers maximum temp being 102 F, raised WBC and negative blood cultures (07/15). His urine tox was positive for opiates, amphetamines and opiates. 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 ID consultation was done and his zosyn was switched to cefepime. He was treated for b with buprenorphine which was tapered. ? He was found to be negative for HIV and Hep B and his WBCs started trending down, however he still spiked fevers. Repeat blood cultures on 07/15 were sent which is still pending. He was transferred to [facility] for CT surgery evaluation for possible surgery for his IE. ? At the time of admission, patient was febrile 102 F. Complained of global pain. He admitted to intermittent abdominal discomfort and said he had been constipated for 3 days. He denied any chest pain, palpitations, lightheadedness, or bilateral LL swelling. He said his last IVDU was on Thursday morning (07/13/20) before he presented to the hospital. He denied the use of leg veins for the same. CTS saw the patient and recommend a GRICELDA for further evaluation. However given his return to covid positive status, that may be delayed. ID was also following the patient and they recommended starting him on vanc plus cefepime. His blood Cxs from here as well as [facility] have been negative as per Dr Bowens's note on 07/19. Of note, he was covid positive on 06/29/20 however he was tested negative during his hospital admission in [place]. However his COVID result again came positive and he moved to isolation laird. Interval Events: Patient does not report any chest pain or shortness of breath. Did not report any new complains. OBJECTIVE Medications: IV Infusions: Scheduled: - methadone, 10 mg, BID - sodium chloride 0.9 % (flush), 10 mL, q 12 H - vancomycin, 1.5 g, q 8 H - senna-docusate, 2 tablet, BID - polyethylene glycol 3350, 17 g, DAILY - nicotine, 1 Patch, DAILY And - nicotine -- REMOVE patch, , DAILY And - nicotine - verify patch, , q 8 H - cefepime, 2 g, q 8 HR - vancomycin dosing and monitoring per pharmacy, , As Directed - enoxaparin, 40 mg, DAILY PRN: - sodium chloride 0.9 % (flush), 20 mL, PRN - bisacodyl, 10 mg, DAILY PRN - prochlorperazine, 10 mg, q 6 H PRN - methadone, 5 mg, q 4 H PRN - ondansetron, 4 mg, q 6 H PRN Or - ondansetron (PF), 4 mg, q 6 H PRN - acetaminophen, 650 mg, q 6 H PRN - hydrOXYzine HCl, 50 mg, q 6 H PRN Vital Signs: BP 101/60 Pulse 73 Temp (Src) 98.2 (Oral) Resp 20 Ht 5' 9 (1.75m) Wt 161 lb 9.6 oz (73.3kg) SpO2 96% BMI 23.85 kg/(m2). O2 Therapy: Room Air Physical Exam Performed: Due to the current efforts to prevent transmission of COVID-19 and also the need to preserve PPE for caregivers, a [id number] encounter with the patient was not performed. That being said, all relevant records and diagnostic tests were reviewed, including laboratory results and imaging. Please reference attending physician documentation for physical exam. Care will be coordinated with the team members. Lines, Drains, and Airways Line Peripheral 07/22/20 0045 Right Forearm 20 Gauge 1 day Reviewed lines and needs to be continued: REASONS: Intravenous antibiotics Labs: CBC: Recent Labs 07/23/20 0610 07/22/20 0323 07/21/20 0559 07/20/20 0554 07/19/20 0600 07/17/20 2216 WBC 26.53* 22.21* 21.81* 19.91* 20.38* 15.34* HB 9.9* 10.5* 10.3* 10.1* 10.5* 10.8* HCT 30.9* 33.3* 31.9* 30.9* 31.4* 32.2* PLT -- 265 243 229 209 191 MCV 83.3 85.2 83.9 83.7 82.0 82.4 RDWCV 14.1 13.8 13.9 13.8 13.9 13.8 NEUTP -- 70.2 -- -- -- -- ABSNEUT -- 15.60* -- -- -- -- LYMPHP -- 17.1 -- -- -- -- MONOP -- 8.5 -- -- -- -- COAG: No results for input(s): APTT, INR in the last 168 hours. BMP: Recent Labs 07/23/2060907/22/2032207/21/20 0559 07/20/20 1548 07/20/20 0554 07/19/20 0600 07/17/20 2216 GLUC 100* 110* 94 -- 106* 102* 111* NA 127* 130* 128* 130* 126* 128* 130* K 4.4 4.3 4.5 -- 4.2 4.3 4.3 CHLOR 94* 92* 92* -- 92* 96* 93* CO2 25 31* 27 -- 28 25 26 ANION 8* 7* 9 -- 6* 7* 11 BUN 15 12 13 -- 16 15 10 CREAT 0.76 0.72* 0.70* -- 0.73 0.75 0.74 CHEM: Recent Labs 07/23/2060907/22/203 07/21/20 0559 07/20/20 0554 07/19/20 0600 07/17/20 2216 TPROT -- -- -- -- -- 7.9 CA 8.8 8.7 8.8 8.5 8.8 8.6 MG -- -- -- -- -- 1.8 HEPATIC: Recent Labs 07/17/202215 ALKPHOS 120* ALT 13 AST 27 TBILI 0.3 URINALYSIS:No results for input(s): PH, SPGR, UGLUC, UBILI, UKET, UHB, UPROT, UROBIL, UWBC, SSA in the last 168 hours. Invalid input(s): NITR CARDIAC: No results for input(s): CKTEST, CKMB, CKMBP in the last 168 hours.TROPONIN@:8,No results found for: BNP:8)@ No intake or output data in the 24 hours ending 07/23/20727 Serum creatinine: 0.76 mg/dL 07/23/20609 Estimated creatinine clearance: 134.4 mL/min Standardized Care Interventions: Labs: Routine blood work indicated for tomorrow on account of: suspected infection Assessment/Plan Problem List Infective endocarditis Methamphetamine dependence (HCC) Cannabis dependence (HCC) Nicotine use disorder, F17.2 IVDU (intravenous drug user) Fever Leucocytosis Hepatitis C antibody positive in blood Mild protein-calorie malnutrition (HCC) Hyponatremia COVID-19 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 He is currently on vanc + cefepime CTS wants a GRICELDA for further evaluation. However given his return to covid positive status, that may be delayed. PICC line has been ordered for 6 week Abx Rx and will probably be done today. COVID positive ID is following and patient has been moved to the isolation laird. Constipation -dc morphine and oxycodone -Started on senna docusate and miralax. Hyponatremia(Euvolemic ) Was 127 today. Will continue to monitor for symptoms and monitor daily Na level. Urine / serum osmolality at 564/275 . Urine Na at 64. Likely 2/2 SIADH Continue fluid restriction. Patient encouraged to limit H2O consumption. . Anemia Likely anemia of chronic disease. Yesterday's level was 10.5. Nicotine dependence. He is on a nicotine patch. H/o opioid use He is c/o pain likely due to opioid withdrawal. Pain management is on board. Medication and Non-Pharmacologic VTE Prophylaxis/Anticoagul ants Anticoagulant AND Antiplatelet Medications (From admission, onward) Start Dose Route Frequency Ordered Stop 07/17/202099 enoxaparin 40 mg injection (LOVENOX) (Medical Risk Categories) 40 mg SUBCUTANEOUS DAILY 07/17/202044 -- 07/17/202044 pneumatic compression stockings ([place]) 07/17/202044 activity - mobilize patient ([place]) VTE Prophylaxis: VTE prophylaxis appropriate GI Prophylaxis: Not indicated Telemetry: Not indicated Disposition: Home Code Status: Not on file Plan of care discussed with: Provider SIGNATURE: Fortunato Corcoran MD PATIENT NAME: Khanh De La Vega DATE: July 23, 2020 TIME: 7:20 AM Page 0815 [facility] PROGRESS HNO ID: [id number] Author: Campos Mcgowan Service: Pain Management Author Type: Physician Type: Progress Notes Filed: 07/23/2020 10:37 AM Note Text: Name: KHANH DE LA VEGA Age: [age] year old PAIN MANAGEMENT: Back pain, TV endocarditis, IVDA; opiate dependent Pain Description: Complains of entire back and all his muscles hurting. Interval HPI: T-max to 38.8, currently 37.8, with reasonably stable vital signs. All of the following reviewed, unchanged, or negative except as noted below: GENERAL: Has a fever, feels washed out, but overall better HEENT: no new eye, ear, nose, sinus, or oral complaints CHEST: no chest discomfort/cough/ sputum production/wheezing or asthma/breast mass or tenderness HEART: palpitations/ chest pain/syncope ABDOMEN: no nausea or vomiting/ abdominal pain/ diarrhea/constipation EXTREMITIES: no pain/arthritis/swellin g SKIN: no new or change in rash/ulcers/lesions/pr uritis/skin changes HEME: no swollen glands or unchanged/bleeding/bru ising/petichiae : no urinary burning/bleeding/urgen cy/frequency PSYCH: no depression/anxiety/alt ered state/forgetfulness/ba d dreams/hallucinations GRICELDA has been recommended, pending On examination he appeared in stable health and spirits. Still appears to be washed out, uncomfortable. Vital signs as documented. Skin warm and dry and without overt rashes. Neck without JVD. Lungs clear. Heart exam notable for unchanged rhythm, normal sounds and absence of murmurs, rubs or gallops. Abdomen unremarkable and without evidence of organomegaly, masses, or abdominal aortic enlargement. Extremities unchanged Blood cultures have been negative to date. 24H Comfort Meds: Tylenol 650 mg x 1 Methadone 10 mg twice daily Methadone 5 mg x 4 Antibiotic Therapy: Cefepime, vancomycin Subjective HPI: 35-year-old male with history of active IVDA (heroin, fentanyl, methamphetamine-daily times years), hepatitis C presented to [facility] 07/13 with worsening fatigue, fevers. Patient was noted to have leukocytosis; urine drug screen positive for opiates and amphetamines. TTE demonstrated 0.5 x 1 cm tricuspid valve vegetation. Patient was started on IV vancomycin and Zosyn. He was briefly treated with Suboxone for opiate withdrawal. He was transferred to [facility] 07/17 for evaluation by CTS for possible surgery. Patient states he last used IV heroin and methamphetamine on 07/13. He was intolerant of Suboxone in the past due to GI upset. He had been on it for about 3 months 5 years ago. He has not been on methadone maintenance. He complains of back pain as well as some mild withdrawal symptoms. OARRS Review: 1 prescription [place] #10 Current Facility-Administered Medications Medication Dose Route Frequency Provider Last Rate Last Dose - methadone 10 mg tab(s) (DOLOPHINE) 10 mg ORAL BID Heike (Rodríguez) MD Floyd 10 mg at 07/22/202032 - sodium chloride 0.9 % (flush) 10 mL (BD POSIFLUSH) 10 mL INTRAVENOUS q 12 H Heike (Rodríguez) MD Floyd 10 mL at 07/22/202032 - sodium chloride 0.9 % (flush) 20 mL (BD POSIFLUSH) 20 mL INTRAVENOUS PRN Heike (Res) MD Floyd - bisacodyl 10 mg suppository (DULCOLAX) 10 mg RECTAL DAILY PRN Heike (Rodríguez) MD Floyd - prochlorperazine 10 mg tab(s) (COMPAZINE) 10 mg ORAL q 6 H PRN Heike (Res) MD Floyd - vancomycin iv piggyback 1.5 g in D5W 250 mL (VANCOCIN) 1.5 g INTRAVENOUS q 8 H Heike (Res) MD Floyd 125 mL/hr at 07/22/202333 1.5 g at 07/22/202333 - senna-docusate 8.6-50 mg 2 tablet (SENNA-S) 2 tablet ORAL BID Heike (Rodríguez) MD Floyd 2 tablet at 07/22/202032 - polyethylene glycol 3350 17 g packet (MIRALAX, GLYCOLAX) 17 g ORAL DAILY Heike (Rodríguez) MD Floyd 17 g at 07/22/20 1000 - methadone 5 mg tab(s) (DOLOPHINE) 5 mg ORAL q 4 H PRN Heike (Rodríguez) MD Floyd 5 mg at 07/22/202330 - nicotine 14 mg/24 hr 1 Patch (NICODERM) 1 Patch TRANSDERMAL DAILY Heike (Rodríguez) MD Floyd 1 Patch at 07/22/20 1000 And - nicotine -- REMOVE patch OTHER DAILY Heike (Rodríguez) MD Floyd And - nicotine - verify patch OTHER q 8 H Heike (Res) MD Floyd - cefepime 2 g in D5W 100 mL MB+ (MAXIPIME) 2 g INTRAVENOUS q 8 HR Heikejl Barrientos MD 200 mL/hr at 07/22/202032 2 g at 07/22/202032 - vancomycin dosing and monitoring per pharmacy OTHER As Directed Heike Barrientos MD - enoxaparin 40 mg injection (LOVENOX) 40 mg SUBCUTANEOUS DAILY Heike Barrientos MD 40 mg at 07/22/20 1000 - ondansetron 4 mg tab(s) (ZOFRAN) 4 mg ORAL q 6 H PRN Heike Barrientos MD Or - ondansetron (PF) 4 mg injection (ZOFRAN) 4 mg INTRAVENOUS q 6 H PRN Heike Barrientos MD 4 mg at 07/17/202230 - acetaminophen 650 mg tab(s) (TYLENOL) 650 mg ORAL q 6 H PRN Heike Barrientos MD 650 mg at 07/22/202121 - hydrOXYzine HCl 50 mg tab(s) (ATARAX) 50 mg ORAL q 6 H PRN Heike Barrientos MD No medications prior to admission. Social History Tobacco Use - Smoking status: Current Every Day Smoker Packs/day: 1.00 Types: Cigarettes - Smokeless tobacco: Never Used Substance Use Topics - Alcohol use: Yes Comment: socially - Drug use: Yes Types: Crystal Meth, Marijuana, Heroin, Amphetamines Comment: pt does inject No family history on file. PAST SURGICAL HISTORY Procedure Laterality Date - ORTHOPEDICS SURGERY HX Right pins placed in right hand ROS: All of the following reviewed and negative except as noted below: Significant for HPI GENERAL: no fever, chills, sweats, weight loss, fatigue, generalized weakness HEENT: no headache, vision changes, eye discomfort, hearing change, ear discomfort, sinus pain, nasal discharge or congestion, oral lesions, soreness, dental problem NECK: no adenopathy, discomfort, change in ROM CHEST: no shortness of breath, dyspnea on exertion, wheezing, cough, sputum production or chest pain HEART: no chest pain, palpitations, syncope ABDOMEN: no nausea, vomiting, constipation, diarrhea, abdominal pain : no dysuria, urgency, frequency, history of stones, incontinence NEURO: no confusion or alteration in consciousness, slurred speech, seizure, focal weakness EXTREMITIES: no new pain, edema, change in ROM HEME: no new adenopathy, bruises, petechiae PSYCH: no depression, anxiety, agitation PAIN PSYCHIATRIC EXAM: GENERAL: alert, oriented to person, place, time JUDGMENT AND INSIGHT: intact APPEARANCE: neatly groomed DEMEANOR: coooperative, not hostile, mistrustful, preoccupied, or demanding ACTIVITY: normal, not hyperactive or hypoactive, no tremors, tics EYE CONTACT: normal SPEECH: normal, rate, volume, articulation, coherence, spontaneity MOOD: normal, without overt sadness, grief, anxiety, appropriate to situation IDEATION: Deferred MEMORY: intact PHYSICAL EXAMINATION: GENERAL: well nourished and developed; no acute distress; alert and oriented x 3; intact judgement and insight HEENT: no evidence of trauma; cranial nerves intact; eyes clear EOMI; no hearing deficits apparent; nasal passages unremarkable; throat and mucous membranes clear NECK: supple without lymphadenopathy; no JVD; no thyromegaly CHEST: clear bilaterally to auscultation; normal chest movement; no rales or rhonchi HEART: regular rate and rhythm, 2/6 systolic murmur ABDOMEN: soft; nondistended; bowel sounds present; no hepatomegaly; no splenomegaly; no tenderness EXTREMITIES: no evidence of clubbing; no cyanosis; no deformity; no joint effusion; no edema NEURO: cranial nerves intact; no focal deficits; no confusion; no tremor; sensorium normal SKIN: no rash; no skin breakdown; no decubitus lesions HEME: no bruising; no adenopathy PSYCH: no evidence of depression; no anxiety; no agitation; no apparent hallucinations BP 104/60 Pulse 91 Temp 37.8 ?C (100 ?F) (Oral) Resp 20 Ht 175.3 cm (5' 9) Wt 73.3 kg (161 lb 9.6 oz) SpO2 94% BMI 23.86 kg/m? BMI 23.86 kg/(m2) ABNORMAL/NEW FINDINGS: NONE RADIOLOGY/DIAGNOSTICS: LABORATORY: CBC: No results for input(s): WBC, RBC, HB, HCT, PLT, MCV, MCH, MPV, RDW in the last 24 hours. CMP: No results for input(s): NA, K, CHLOR, CO2, BUN, CREAT, GLUC, TPROT, CA, MG, ALBUMIN, TBILI, ALKPHOS, ALT, AST, ANION in the last 24 hours. Heme: No results for input(s): RETICP, ABSRETIC, LD, YEIMY, FE, TIBC, TRANSFERSAT in the last 24 hours. 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 Continue IV vancomycin and cefepime. Status post prior Suboxone taper at initial presentation at [facility]. Ongoing complaints of back pain, Defer any work-up to primary service. methadone 10 mg twice daily Methadone 5 mg every 4 hours as needed pain Use increase yesterday, not enough to increase his program to methadone Patient not interested in Suboxone; intolerant of it in the past due to GI upset Plan for continued adjustment of his methadone as needed, Now Covid positive. Apparently initially positive on 06/30/2020. Has been moved to isolation bed. Campos Mcgowan MD ADDENDUM: Portions of this note were copied so as to provide important historical information essential in contributing to medical decision making today. ADDENDUM: Even the portions of this note that were copied have been reviewed completely and edited so as to result in a note that most accurately reflects my complete evaluation today. Normal [facility] PT EDon 07-23-2020 PT ED HNO ID: [id number] Author: Iris (Rn) INDY Weaver Service: PICC Team Author Type: Registered Nurse Type: Patient Education Filed: 07/23/2020 2:35 PM Note Text: AMBULATORY PATIENT EDUCATION VASCULAR ACCESS TEAM TOPIC: Peripherally Inserted Central Catheter READINESS TO LEARN COGNITIVE ABILITY: Alert and oriented MOTIVATION TO LEARN: Interested FAMILY SUPPORT: Unable to assess - Family not present INSTRUCTION PROVIDED TO: Patient PATIENT LEARNS BEST BY: Individual Instruction Written Instruction - Hand-outs Verbal Instruction FACTORS AFFECTING LEARNING:None PHYSICAL LIMITATIONS AFFECTING LEARNING: None LEARNING RESPONSE METHOD OF INSTRUCTION: Individual instruction Written instruction - handouts Verbal instruction PATIENT / FAMILY RESPONSE: Verbalizes understanding of pre-procedure instructions Verbalizes understanding of post-procedure instructions FOLLOW-UP PLAN: Follow-up with Primary Care SUPPLEMENTAL MATERIAL: PICC Line brochure and [facility] catheter-Associated Bloodstream Infection fact sheet Normal [facility] VANCOMYCINon 07-23-2020 Vancomycin [Mass/Vol] 18.5 ug/mL Normal 10.0-20.0 [facility] Comment on above: Order Comment: Speci men Type: BLOOD SPECIMEN Result Comment: Refe rence ranges and high/low indicator flags are provided as general guidelines only. The treating physician must determine appropriate target levels/dosing based on the specific clinical situation. Performed By: #### 9 4500-6 #### [facility] CLIA [id number] [address] [place] [address] ANTI-STREPTOLYSIN ABon 07-22 Streptolysin O Ab Qn 355 [IU]/mL High <201 [facility] Comment on above: Order Comment: Speci men Type: BLOOD SPECIMEN Performed By: #### 9 4500-6 #### [facility] CLIA [id number] [address] [place] [address] Bas Metab 2000 Pnl SerPlon 1 Anion gap [Moles/Vol] 7 mmol/L Low 9-18 [facility] Comment on above: Order Comment: Speci men Type: BLOOD SPECIMEN Performed By: #### H ISTCL #### [facility] CLIA [id number] [address] [place] [address] Calcium [Mass/Vol] 8.7 mg/dL Normal 8.5-10.2 [facility] Comment on above: Order Comment: Speci men Type: BLOOD SPECIMEN Performed By: #### H ISTCL #### [facility] CLIA [id number] [address] [place] [address] Chloride [Moles/Vol] 92 mmol/L Low 97-105 [facility] Comment on above: Order Comment: Speci men Type: BLOOD SPECIMEN Performed By: #### H ISTCL #### [facility] CLIA [id number] [address] [place] [address] CO2 [Moles/Vol] 31 mmol/L High 22-30 [facility] Comment on above: Order Comment: Speci men Type: BLOOD SPECIMEN Performed By: #### H ISTCL #### [facility] CLIA [id number] [address] [place] [address] Creatinine [Mass/Vol] 0.72 mg/dL Low 0.73-1.22 [facility] Comment on above: Order Comment: Speci men Type: BLOOD SPECIMEN Performed By: #### H ISTCL #### [facility] CLIA [id number] [address] [place] [address] GFR/1.73 sq M.predicted MDRD (S/P/Bld) [Vol rate/Area] mL/min/{1.73_m2} Normal [facility] Comment on above: Order Comment: Speci men Type: BLOOD SPECIMEN Result Comment: >60 eGFR (Estimated GFR) Units of measure: mL/min/1.73 meters squared eGFR is derived from the reexpressed MDRD Study equation using the following parameters: serum creatinine, age, gender and race. The creatinine assay has been calibrated to be traceable to IDMS. An eGFR <60 mL/min/1.73m2 for >3 months is consistent with chronic kidney disease. Refer to KDOQI guidelines for clinical interpretation. In patients with unstable renal function, e.g. those with acute kidney injury, the eGFR may not accurately reflect actual GFR. Performed By: #### H ISTCL #### [facility] CLIA [id number] [address] [place] [address] Glucose [Mass/Vol] 110 mg/dL High 74-99 [facility] Comment on above: Order Comment: Speci [facility] Type: BLOOD SPECIMEN Result Comment: The [place] Diabetes Association (ADA) provides guidance for cutoff values for fasting glucose and random glucose. The ADA defines fasting as no caloric intake for at least 8 hours. Fasting plasma glucose results between 100 to 125 mg/dL indicate increased risk for diabetes (prediabetes). Fasting plasma glucose results greater than or equal to 126 mg/dL meet the criteria for diagnosis of diabetes. In the absence of unequivocal hyperglycemia, results should be confirmed by repeat testing. In a patient with classic symptoms of hyperglycemia or hyperglycemic crisis, random plasma glucose results greater than or equal to 200 mg/dL meet the criteria for diagnosis of diabetes. Reference: Standards of Medical Care in Diabetes 2016, [employer] Diabetes Association. Diabetes Care. 2016.39(Suppl 1). Performed By: #### H ISTCL #### [facility] CLIA [id number] [address] [place] [address] Potassium [Moles/Vol] 4.3 mmol/L Normal 3.7-5.1 [facility] Comment on above: Order Comment: Speci men Type: BLOOD SPECIMEN Performed By: #### H ISTCL #### [facility] CLIA [id number] [address] [place] [address] Sodium [Moles/Vol] 130 mmol/L Low 136-144 [facility] Comment on above: Order Comment: Speci men Type: BLOOD SPECIMEN Performed By: #### H ISTCL #### [facility] CLIA [id number] [address] [place] [address] Urea nitrogen [Mass/Vol] 12 mg/dL Normal 9-24 [facility] Comment on above: Order Comment: Speci men Type: BLOOD SPECIMEN Performed By: #### H ISTCL #### [facility] CLIA [id number] [address] [place] [address] CBC W Auto Diff Bld[place] 2019 Basophils (Bld) [#/Vol] 0.13 10*3/uL High <0.11 [facility] Comment on above: Order Comment: Speci men Type: BLOOD SPECIMEN Result Comment: Diff erential confirmed by visual scan of peripheral blood smear slide Performed By: #### 6 00-7 #### [facility] CLIA [id number] [address] [place] [address] Basophils/100 WBC (Bld) 0.6 % Normal [facility] Comment on above: Order Comment: Speci men Type: BLOOD SPECIMEN Performed By: #### 6 00-7 #### [facility] CLIA [id number] [address] [place] [address] Differential cell count method Nom (Bld) Auto Normal [facility] Comment on above: Order Comment: Speci men Type: BLOOD SPECIMEN Performed By: #### 6 00-7 #### [facility] CLIA [id number] [address] [place] [address] Eosinophils (Bld) [#/Vol] 0.25 10*3/uL Normal <0.46 [facility] Comment on above: Order Comment: Speci men Type: BLOOD SPECIMEN Performed By: #### 6 -7 #### [facility] CLIA [id number] [address] [place] [address] Eosinophils/100 WBC (Bld) 1.1 % Normal [facility] Comment on above: Order Comment: Speci men Type: BLOOD SPECIMEN Performed By: #### 6 -7 #### [facility] CLIA [id number] [address] [place] [address] Erythrocyte distribution width (RBC) [Ratio] 13.8 % Normal 11.5-15.0 [facility] Comment on above: Order Comment: Speci men Type: BLOOD SPECIMEN Performed By: #### 6 -7 #### [facility] CLIA [id number] [address] [place] [address] Hematocrit (Bld) [Volume fraction] 33.3 % Low 39.0-51.0 [facility] Comment on above: Order Comment: Speci men Type: BLOOD SPECIMEN Performed By: #### 6 -7 #### [facility] CLIA [id number] [address] [place] [address] Hemoglobin (Bld) [Mass/Vol] 10.5 g/dL Low 13.0-17.0 [facility] Comment on above: Order Comment: Speci men Type: BLOOD SPECIMEN Performed By: #### 6 -7 #### [facility] CLIA [id number] [address] [place] [address] IMMATURE GRAN % 2.5 % Normal [facility] Comment on above: Order Comment: Speci men Type: BLOOD SPECIMEN Performed By: #### 6 -7 #### [facility] CLIA [id number] [address] [place] [address] IMMATURE GRAN ABS 0.55 k/uL High <0.[address] [facility] Comment on above: Order Comment: Speci men Type: BLOOD SPECIMEN Performed By: #### 6 -7 #### [facility] CLIA [id number] [address] [place] [address] Lymphocytes (Bld) [#/Vol] 3.80 10*3/uL Normal 1.00-4.00 [facility] Comment on above: Order Comment: Speci men Type: BLOOD SPECIMEN Performed By: #### 6 -7 #### [facility] CLIA [id number] [address] [place] [address] Lymphocytes/100 WBC (Bld) 17.1 % Normal [facility] Comment on above: Order Comment: Speci men Type: BLOOD SPECIMEN Performed By: #### 6 -7 #### [facility] CLIA [id number] [address] [place] [address] MCH (RBC) [Entitic mass] 26.9 pg Normal 26.0-34.0 [facility] Comment on above: Order Comment: Speci men Type: BLOOD SPECIMEN Performed By: #### 6 -7 #### [facility] CLIA [id number] [address] [place] [address] MCHC (RBC) [Mass/Vol] 31.5 g/dL Normal 30.5-36.0 [facility] Comment on above: Order Comment: Speci men Type: BLOOD SPECIMEN Performed By: #### 6 -7 #### [facility] CLIA [id number] [address] [place] [address] MCV (RBC) [Entitic vol] 85.2 fL Normal 80.0-100.0 [facility] Comment on above: Order Comment: Speci men Type: BLOOD SPECIMEN Performed By: #### 6 -7 #### [facility] CLIA [id number] [address] [place] [address] Monocytes (Bld) [#/Vol] 1.88 10*3/uL High <0.87 [facility] Comment on above: Order Comment: Speci men Type: BLOOD SPECIMEN Performed By: #### 6 -7 #### [facility] CLIA [id number] [address] [place] [address] Monocytes/100 WBC (Bld) 8.5 % Normal [facility] Comment on above: Order Comment: Speci men Type: BLOOD SPECIMEN Performed By: #### 6 -7 #### [facility] CLIA [id number] [address] [place] [address] Neutrophils (Bld) [#/Vol] 15.60 10*3/uL High 1.45-7.50 [facility] Comment on above: Order Comment: Speci men Type: BLOOD SPECIMEN Performed By: #### 6 -7 #### [facility] CLIA [id number] [address] [place] [address] Neutrophils/100 WBC (Bld) 70.2 % Normal [facility] Comment on above: Order Comment: Speci men Type: BLOOD SPECIMEN Performed By: #### 6 -7 #### [facility] CLIA [id number] [address] [place] [address] Nucleated RBC (Bld) [#/Vol] 10*3/uL Normal <0.01 [facility] Comment on above: Order Comment: Speci men Type: BLOOD SPECIMEN Performed By: #### 6 -7 #### [facility] CLIA [id number] [address] [place] [address] Nucleated RBC/100 WBC (Bld) [Ratio] 0.0 /100 WBC Normal 0.0 [facility] Comment on above: Order Comment: Speci men Type: BLOOD SPECIMEN Performed By: #### 6 -7 #### [facility] CLIA [id number] [address] [place] [address] Platelet mean volume (Bld) [Entitic vol] 10.6 fL Normal 9.0-12.7 [facility] Comment on above: Order Comment: Speci men Type: BLOOD SPECIMEN Performed By: #### 6 -7 #### [facility] CLIA [id number] [address] [place] [address] Platelets (Bld) [#/Vol] 265 10*3/uL Normal 150-400 [facility] Comment on above: Order Comment: Speci men Type: BLOOD SPECIMEN Performed By: #### 6 00-7 #### [facility] CLIA [id number] [address] [place] [address] RBC (Bld) [#/Vol] 3.91 10*6/uL Low 4.20-6.00 [facility] Comment on above: Order Comment: Speci men Type: BLOOD SPECIMEN Performed By: #### 6 00-7 #### [facility] CLIA [id number] [address] [place] [address] WBC (Bld) [#/Vol] 22.21 10*3/uL High 3.70-11.00 [facility] Comment on above: Order Comment: Speci men Type: BLOOD SPECIMEN Performed By: #### 6 00-7 #### [facility] CLIA [id number] [address] [place] [address] CONSULT PROGon 07-22-2020 CONSULT PROG HNO ID: [id number] Author: Pancho Calderon (Pharmacist) Service: Pharmacy Author Type: Pharmacist Type: Consult Progress Note Filed: 07/22/2020 12:13 PM Note Text: PHARMACY VANCOMYCIN DOSING NOTE Patient Name: Khanh De La Vega Admission Date: 07/17/2020 Date of Consult: 07/22/2020 Time of Consult: 10:09 AM Indication: Endocarditis Goal Range: 15-25 mcg/mL RECOMMENDATIONS/PLAN: Pharmacy consulted for vancomycin dosing for Khanh De La Vega, a 35 year old, male who is being treated with vancomycin for Endocarditis 1. Patient is currently ordered 1.5g Q8h. Today is day 5 of therapy. 2. The most recent vancomycin level was 23.1 mcg/mL drawn at 0559 on 07/21. This is a 6 hour level on the 4th day of therapy. Original level planned for 1400 07/21- appears level drawn erroneously with AM labs. This is an early level - true trough likely closer to 18-20 mcg/ml. 3. The present dose of vancomycin is the recommended dosage for this patient at this time. Continue therapy as prescribed. 4. The next vancomycin level has been ordered for 07/23 at 1530 (Completed) See note from 07/21 for more information. We will follow patient renal function, vancomycin levels and doses with you during the course of therapy. Additional recommendations will appear in follow up notes. If [place] have any [place] [phone]. Age: [age] year old Allergies: ALLERGIES Allergen Reactions - Penicillins Swelling - Sulfa (Sulfonamide * Swelling Last 3 Encounter Wt Readings: Date: Wt: 07/17/2020 73.3 kg (161 lb 9.6 oz) 11/23/2019 81.6 kg (180 lb) 02/25/2018 81.6 kg (180 lb) Last 1 Encounter Ht Readings: Date: Ht: 07/17/2020 175.3 cm (5' 9) CrCl: 141 mL/min Temp (24hrs), Av.4 ?C (99.3 ?F), Min:36.4 ?C (97.5 ?F), Max:38.4 ?C (101.1 ?F) - Current Temp: (!) 38.4 ?C (101.1 ?F) Labs BUN (mg/dL) Date Value 07/22/2020 12 07/21/2020 13 07/20/2020 16 02/10/2018 16 04/23/2017 8 04/21/2017 10 Creatinine (mg/dL) Date Value 07/22/2020 0.72 (L) 07/21/2020 0.70 (L) 07/20/2020 0.73 02/10/2018 0.92 04/23/2017 0.81 04/21/2017 0.88 WBC Date Value 07/22/2020 22.21 k/uL (H) 07/21/2020 21.81 k/uL (H) 07/20/2020 19.91 k/uL (H) 02/10/2018 10.24 thou/cmm (H) 04/23/2017 9.9 thou/cmm 04/21/2017 9.9 thou/cmm Vancomycin Levels: Vancomycin (ug/mL) Date/Time Value 07/21/2020 0559 23.1 (H) 07/20/2020 0554 17.4 PANCHO CALDERON, PHARMACIST Normal [facility] NURSING PROGon 07-22-2020 NURSING PROG HNO ID: [id number] Author: Rosette (Rn) INDY Mccall Service: ? Author Type: Registered Nurse Type: Nursing Progress Note Filed: 07/22/2020 8:52 AM Note Text: Spoke with Dr Morris about the pt having a positive COVID test. He recommended keeping the pt in isolation and moving the pt to the COVID floor. Was told to call Dr Bowens in the morning about further recommendations. RN spoke with Brendan the supervisory lifeguard, was told to call ops center to move the pt. RN spoke with ops center was told once the transfer order is place they will move the pt to 7100. Normal [facility] PROGRESSon 07-22-2020 PROGRESS HNO ID: [id number] Author: Campos Mcgowan Service: Pain Management Author Type: Physician Type: Progress Notes Filed: 07/22/2020 7:22 AM Note Text: Name: KHANH DE LA VEGA Age: [age] year old PAIN MANAGEMENT: Back pain, TV endocarditis, IVDA; opiate dependent Pain Description: Complains of entire back and all his muscles hurting. Interval HPI: Still with episodes of fever, but otherwise medically stable, continues on room air. Still with back pain, but methadone use much less than I would have predicted. No new radiologic procedures. ROS: Unchanged, GRICELDA has been recommended, pending Covid test + 07/20/2020. For this reason, the patient was not formally seen, but discussed with nursing, who notes that the patient has been reasonably comfortable, and his overall physical examination remains unchanged. Blood cultures have been negative to date. Examination deferred as above. 24H Comfort Meds: Tylenol 650 mg x 1 Methadone 10 mg twice daily Methadone 5 mg x 2 Antibiotic Therapy: Cefepime, vancomycin Subjective HPI: 35-year-old male with history of active IVDA (heroin, fentanyl, methamphetamine-daily times years), hepatitis C presented to [facility] 07/13 with worsening fatigue, fevers. Patient was noted to have leukocytosis; urine drug screen positive for opiates and amphetamines. TTE demonstrated 0.5 x 1 cm tricuspid valve vegetation. Patient was started on IV vancomycin and Zosyn. He was briefly treated with Suboxone for opiate withdrawal. He was transferred to [facility] 07/17 for evaluation by CTS for possible surgery. Patient states he last used IV heroin and methamphetamine on 07/13. He was intolerant of Suboxone in the past due to GI upset. He had been on it for about 3 months 5 years ago. He has not been on methadone maintenance. He complains of back pain as well as some mild withdrawal symptoms. OARRS Review: 1 prescription [place] 5/325 #10 Current Facility-Administered Medications Medication Dose Route Frequency Provider Last Rate Last Dose - methadone 10 mg tab(s) (DOLOPHINE) 10 mg ORAL BID Marilyn K Scantling 10 mg at 07/21/20 2134 - sodium chloride 0.9 % (flush) 10 mL (BD POSIFLUSH) 10 mL INTRAVENOUS q 12 H Amarjit (Res) MD Tere 10 mL at 07/21/20 2136 - sodium chloride 0.9 % (flush) 20 mL (BD POSIFLUSH) 20 mL INTRAVENOUS PRN Amarjit (Res) MD Tere - bisacodyl 10 mg suppository (DULCOLAX) 10 mg RECTAL DAILY PRN Amarjit (Res) MD Tere - prochlorperazine 10 mg tab(s) (COMPAZINE) 10 mg ORAL q 6 H PRN Amarjit (Res) MD Tere - vancomycin iv piggyback 1.5 g in D5W 250 mL (VANCOCIN) 1.5 g INTRAVENOUS q 8 H Fabienne Dorado (Postal Service Mail Processor) 125 mL/hr at 07/21/20 2354 1.5 g at 07/21/20 2354 - senna-docusate 8.6-50 mg 2 tablet (SENNA-S) 2 tablet ORAL BID Amarjit (Res) MD Tere 2 tablet at 07/21/20 0857 - polyethylene glycol 3350 17 g packet (MIRALAX, GLYCOLAX) 17 g ORAL DAILY Amarjit (Res) MD Tere 17 g at 07/21/20 0900 - methadone 5 mg tab(s) (DOLOPHINE) 5 mg ORAL q 4 H PRN Marilyn K Scantling 5 mg at 07/21/20 1608 - nicotine 14 mg/24 hr 1 Patch (NICODERM) 1 Patch TRANSDERMAL DAILY Amarjit (Res) MD Tere 1 Patch at 07/21/20 0859 And - nicotine -- REMOVE patch OTHER DAILY Amarjit (Res) MD Tere And - nicotine - verify patch OTHER q 8 H Amarjit (Res) MD Tere - cefepime 2 g in D5W 100 mL MB+ (MAXIPIME) 2 g INTRAVENOUS q 8 HR Stevo Bowens III 200 mL/hr at 07/21/202133 2 g at 07/21/202133 - perflutren lipid microspheres 1.1 mg/mL 1.3 mL injection (DEFINITY) 1.3 mL INTRAVENOUS DIRECTED PRN Stevo Bowens III - vancomycin dosing and monitoring per pharmacy OTHER As Directed Minerva (Res) Rath - enoxaparin 40 mg injection (LOVENOX) 40 mg SUBCUTANEOUS DAILY Minerva (Res) Rath 40 mg at 07/21/20 0900 - ondansetron 4 mg tab(s) (ZOFRAN) 4 mg ORAL q 6 H PRN Minerva (Res) Rath Or - ondansetron (PF) 4 mg injection (ZOFRAN) 4 mg INTRAVENOUS q 6 H PRN Minerva (Res) Rath 4 mg at 07/17/202230 - acetaminophen 650 mg tab(s) (TYLENOL) 650 mg ORAL q 6 H PRN Minerva (Res) Rath 650 mg at 07/21/202132 - hydrOXYzine HCl 50 mg tab(s) (ATARAX) 50 mg ORAL q 6 H PRN Minerva (Res) Rath No medications prior to admission. Social History Tobacco Use - Smoking status: Current Every Day Smoker Packs/day: 1.00 Types: Cigarettes - Smokeless tobacco: Never Used Substance Use Topics - Alcohol use: Yes Comment: socially - Drug use: Yes Types: Crystal Meth, Marijuana, Heroin, Amphetamines Comment: pt does inject No family history on file. PAST SURGICAL HISTORY Procedure Laterality Date - ORTHOPEDICS SURGERY HX Right pins placed in right hand ROS: All of the following reviewed and negative except as noted below: Significant for HPI GENERAL: no fever, chills, sweats, weight loss, fatigue, generalized weakness HEENT: no headache, vision changes, eye discomfort, hearing change, ear discomfort, sinus pain, nasal discharge or congestion, oral lesions, soreness, dental problem NECK: no adenopathy, discomfort, change in ROM CHEST: no shortness of breath, dyspnea on exertion, wheezing, cough, sputum production or chest pain HEART: no chest pain, palpitations, syncope ABDOMEN: no nausea, vomiting, constipation, diarrhea, abdominal pain : no dysuria, urgency, frequency, history of stones, incontinence NEURO: no confusion or alteration in consciousness, slurred speech, seizure, focal weakness EXTREMITIES: no new pain, edema, change in ROM HEME: no new adenopathy, bruises, petechiae PSYCH: no depression, anxiety, agitation PAIN PSYCHIATRIC EXAM: GENERAL: alert, oriented to person, place, time JUDGMENT AND INSIGHT: intact APPEARANCE: neatly groomed DEMEANOR: coooperative, not hostile, mistrustful, preoccupied, or demanding ACTIVITY: normal, not hyperactive or hypoactive, no tremors, tics EYE CONTACT: normal SPEECH: normal, rate, volume, articulation, coherence, spontaneity MOOD: normal, without overt sadness, grief, anxiety, appropriate to situation IDEATION: Deferred MEMORY: intact PHYSICAL EXAMINATION: GENERAL: well nourished and developed; no acute distress; alert and oriented x 3; intact judgement and insight HEENT: no evidence of trauma; cranial nerves intact; eyes clear EOMI; no hearing deficits apparent; nasal passages unremarkable; throat and mucous membranes clear NECK: supple without lymphadenopathy; no JVD; no thyromegaly CHEST: clear bilaterally to auscultation; normal chest movement; no rales or rhonchi HEART: regular rate and rhythm, 2/6 systolic murmur ABDOMEN: soft; nondistended; bowel sounds present; no hepatomegaly; no splenomegaly; no tenderness EXTREMITIES: no evidence of clubbing; no cyanosis; no deformity; no joint effusion; no edema NEURO: cranial nerves intact; no focal deficits; no confusion; no tremor; sensorium normal SKIN: no rash; no skin breakdown; no decubitus lesions HEME: no bruising; no adenopathy PSYCH: no evidence of depression; no anxiety; no agitation; no apparent hallucinations BP 101/62 Pulse 99 Temp 37.5 ?C (99.5 ?F) (Oral) Resp 18 Ht 175.3 cm (5' 9) Wt 73.3 kg (161 lb 9.6 oz) SpO2 95% BMI 23.86 kg/m? BMI 23.86 kg/(m2) ABNORMAL/NEW FINDINGS: NONE RADIOLOGY/DIAGNOSTICS: LABORATORY: CBC: Recent Labs 07/21/20 0559 WBC 21.81* RBC 3.80* HB 10.3* HCT 31.9* PLT 243 MCV 83.9 MCH 27.1 MPV 10.6 CMP: Recent Labs 07/21/20 0559 NA 128* K 4.5 CHLOR 92* CO2 27 BUN 13 CREAT 0.70* GLUC 94 CA 8.8 ANION 9 Heme: No results for input(s): RETICP, ABSRETIC, LD, YEIMY, FE, TIBC, TRANSFERSAT in the last 24 hours. 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 Continue IV vancomycin and cefepime. Status post prior Suboxone taper at initial presentation at [facility]. Ongoing complaints of back pain, Defer any work-up to primary service. methadone 10 mg twice daily Methadone 5 mg every 4 hours as needed pain Patient not interested in Suboxone; intolerant of it in the past due to GI upset Plan for continued adjustment of his methadone as needed, Now Covid positive Campos Mcgowan MD ADDENDUM: Portions of this note were copied so as to provide important historical information essential in contributing to medical decision making today. ADDENDUM: Even the portions of this note that were copied have been reviewed completely and edited so as to result in a note that most accurately reflects my complete evaluation today. Normal [facility] PROGRESS HNO ID: [id number] Author: Mac Negron Service: Hospital Medicine Author Type: Resident Type: Progress Notes Filed: 07/22/2020 11:34 AM Note Text: Attestation with edits by Nader Scales at 07/22/2020 11:34 AM Attending Note I personally saw and examined the patient on 07/22/20. I reviewed the resident's note. I agree with the resident's assessment and plan unless otherwise noted. Signature: Nader Scales, DO Date: 07/22/2020 Time: 11:33 AM Pager: [phone] HOUSE MEDICINE SERVICE PROGRESS NOTE SERVICE DATE: July 22, 2020 SERVICE TIME: 10:01 AM NIGHT AND WEEKEND COVERAGE: From 6 AM to 5 PM: You may reach the House Medicine sales and marketing intern currently assigned to this patient by finding their pager number on the treatment team (they will be assigned as the sales and marketing intern or resident). It is the last four digits in the phone number beginning with ([phone]). We encourage the use of [employer] Secure Chat. PCP: No primary care provider on file. Admitting Attending: Elijah Hill SUBJECTIVE Chief Complaint: Fever/ fatigue HPI: Patient is a 35 yr male who is a chronic IVDU since 2009 and Hep C positive ( antibody positive on 11/23/19), presented to the [facility] for chronic fatigue on 07/13/20. He was found to have opiate withdrawal symptoms and had spiking fevers maximum temp being 102 F, raised WBC and negative blood cultures (07/15). His urine tox was positive for opiates, amphetamines and opiates. 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 ID consultation was done and his zosyn was switched to cefepime. He was treated for b with buprenorphine which was tapered. He was found to be negative for HIV and Hep B and his WBCs started trending down, however he still spiked fevers. Repeat blood cultures on 07/15 were sent which is still pending. He was transferred to [facility] for CT surgery evaluation for possible surgery for his IE. During my encounter, patient was febrile 102 F. Complaints of global pain. He admitted to intermittent abdominal discomfort and said he had been constipated for 3 days. He denied any chest pain, palpitations, lightheadedness, or bilateral LL swelling. He said his last IVDU was on Thursday morning (07/13/20) before he presented to the hospital. He denied the use of leg veins for the same. Of note, he was covid positive on 06/29/20 however he was tested negative during his hospital admission in [place]. Interval events: -WBC stable but elevated at 22 -Cret stable at .72. Na improving at 130 from 128. -Fungal/aspergillus /fungitell/teichoic acid/ASO assay Pending. -Scheduled for GRICELDA tomorrow Thursday. -Covid 19 Test resulted positive. -Patient had mild fever of 100.9. Remaining vitals WNL. -Bcx remain negative. Check teichoic acid anb and ASO titer per ID. -N.p.o. after midnight in anticipation for GRICELDA tomorrow. PAST MEDICAL HISTORY Diagnosis Date Anxiety Depression Paranoid schizophrenia (HCC) PAST SURGICAL HISTORY Procedure Laterality Date ORTHOPEDICS SURGERY HX Right pins placed in right hand No family history on file. Social History Tobacco Use Smoking status: Current Every Day Smoker Packs/day: 1.00 Types: Cigarettes Smokeless tobacco: Never Used Substance Use Topics Alcohol use: Yes Comment: socially Drug use: Yes Types: Crystal Meth, Marijuana, Heroin, Amphetamines Comment: pt does inject Medications: No medications prior to admission. ALLERGIES Allergen Reactions Penicillins Swelling Sulfa (Sulfonamide * Swelling OBJECTIVE: Vital Signs: BP 101/68 Pulse 71 Temp (Src) 97.5 (Oral) Resp 16 Ht 5' 9 (1.75m) Wt 161 lb 9.6 oz (73.3kg) SpO2 100% BMI 23.85 kg/(m2). O2 Therapy: Room Air Physical Exam Performed: GENERAL: Alert, no distress, cooperative SKIN: Skin color, texture, turgor normal. Multiple tattoos on bilateral UL, bruises on right antecubital fossa HEAD/SINUSES: No significant findings EYES: PERRLA, EOMI EARS: External ears normal, canals clear NOSE: Nares normal. Septum midline. OROPHARYNX: Lips, mucosa, and tongue normal. Multiple teeth absent with soft gums. Oropharynx normal. NECK: No jugulovenous distention, No carotid bruits, Carotid pulse normal contour, Supple BACK: Back symmetric, Normal curvature, ROM normal, No CVAT. LUNGS: Lungs clear to auscultation, Good diaphragmatic excursion CARDIAC: Normal S1 and S2; no rubs, murmurs, or gallops ABDOMEN: Abdomen soft, Mildly tender to palpation epigastric, BS normal, No masses or organomegaly EXTREMITIES: Extremities normal, no deformities, edema, clubbing or skin discoloration. Good capillary refill., No ulcers NEURO: Gait normal. Reflexes normal and symmetric. Sensation grossly intact, Cranial nerves II-XII intact PULSES: 2+ radial, 2+ carotid Lines, Drains, and Airways Line Peripheral 07/22/20 0045 Right Forearm 20 Gauge less than 1 day Reviewed lines and needs to be continued: REASONS: Intravenous antibiotics Data: There is no new data today. AST (U/L) Date Value 07/17/2020 27 04/23/2017 26 WBC Date Value 07/22/2020 22.21 k/uL (H) 02/10/2018 10.24 thou/cmm (H) RBC Date Value 07/22/2020 3.91 m/uL (L) 02/10/2018 4.70 mil/cmm Hemoglobin (g/dL) Date Value 07/22/2020 10.5 (L) 04/17/2014 15.1 HGB (g/dL) Date Value 02/10/2018 13.6 (L) Hematocrit (%) Date Value 07/22/2020 33.3 (L) 02/10/2018 40.9 MCV Date Value 07/22/2020 85.2 fL 02/10/2018 87.0 fl MCH (pg) Date Value 07/22/2020 26.9 02/10/2018 28.9 MCHC Date Value 07/22/2020 31.5 g/dL 02/10/2018 33.3 % RDW-CV (%) Date Value 07/22/2020 13.8 Platelet Count Date Value 07/22/2020 265 k/uL 02/10/2018 299 thou/cmm MPV Date Value 07/22/2020 10.6 fL 02/10/2018 10.4 fl Glucose (mg/dL) Date Value 07/22/2020 110 (H) 02/10/2018 98 BUN (mg/dL) Date Value 07/22/2020 12 02/10/2018 16 Creatinine (mg/dL) Date Value 07/22/2020 0.72 (L) 02/10/2018 0.92 Sodium Date Value 07/22/2020 130 mmol/L (L) 02/10/2018 138 mEq/L Potassium Date Value 07/22/2020 4.3 mmol/L 02/10/2018 3.4 mEq/L (L) Chloride Date Value 07/22/2020 92 mmol/L (L) 02/10/2018 110 mEq/L (H) CO2 Date Value 07/22/2020 31 mmol/L (H) 02/10/2018 24 mEq/L Protein, Total (g/dL) Date Value 07/17/2020 7.9 04/23/2017 7.5 Albumin (g/dL) Date Value 04/23/2017 3.5 Calcium (mg/dL) Date Value 02/10/2018 8.8 Calcium, Total (mg/dL) Date Value 07/22/2020 8.7 Alkaline Phosphatase (U/L) Date Value 07/17/2020 120 (H) 04/23/2017 85 Bilirubin, Total (mg/dL) Date Value 07/17/2020 0.3 04/23/2017 0.4 AST (U/L) Date Value 07/17/2020 27 04/23/2017 26 ALT (U/L) Date Value 07/17/2020 13 04/23/2017 30 Assessment/Plan Problem List Infective endocarditis Methamphetamine dependence (HCC) Cannabis dependence (HCC) Nicotine use disorder, F17.2 IVDU (intravenous drug user) Fever Leucocytosis Hepatitis C antibody positive in blood Mild protein-calorie malnutrition (HCC) Hyponatremia COVID-19 Active Problems: 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 Per ID - CT surgery consult for possible surgery. Echo repeat shows EF 59% with vegetation on 1.5 x 0.8cm on Tricuspid valve. GRICELDA recommended. - CT surgery agrees with GRICELDA. GRICELDA ordered schedule for 07/23 - Blood cultures repeated on 07/17, NGTD 4 - ID consulted, appreciate recommendations - CT surgery consulted, appreciate recommendations. - CT chest ordered by tax credit leasing consultant. For PE emboli - Trend WBCs 07/22/20 at 22 from 21 - Monitor Hemodynamics. Stable -SW: possible SNIF considering need for terminal system operator abx. Referral sent -Picc line ordered for anticipatory use of abx x 6 weeks.anticipate it will be done Thursday. - B-d glucan and galactamannan, teichoic acid antibody, ASO titer, per ID pending. History of Covid positive. (repeat test + on 07/22) -Tested negative prior to admission. -Retested in anticipation for GRICELDA. Resulted positive. -Patient asymptomatic. 100% O2 saturation on room air. -ID following. Appreciate recommendations. -Patient will be transferred to [facility]. -We will continue to monitor symptoms Chronic IVDU / Polysubstance abuse: - Was on buprenorphine taper in the outside hospital - Placed on tylenol for mild pain - DC Oxycodone IR - DC Morphine - Pain management consultation done. Started Methadone. - Hydroxyzine q6h Prn for anxiety - Counseled on dangers and consequence of this behavior. Constipation -Likely 2/2 to chronic opioid use. -dc morphine and oxycodone -Started on senna docusate and miralax. - Repeat suppository. Hypotonic Hyponatremia. Euvolemic state - 130 on admission. Asymptomatic - Continue to monitor. - today at 1 3 0 from 12 8. Improving - Urine / serum osmolality at 564/275 . Urine Na at 64. Likely 2/2 SIADH - fluid restriction. Patient encouraged to limit H2O consumption. Normocytic anemia in the setting of Endocarditis -Hgb 10.8 -MCV 82.4 - Monitor labs and symptoms Nicotine use disorder - Placed on Nicotine patch 14mg - counseled to quit Disposition - Patient is homeless - OT/PT eval : dispo: SNF - family independence case manager consulted Medication and Non-Pharmacologic VTE Prophylaxis/Anticoagul ants Anticoagulant AND Antiplatelet Medications (From admission, onward) Start Dose Route Frequency Ordered Stop 07/17/202099 enoxaparin 40 mg injection (LOVENOX) (Medical Risk Categories) 40 mg SUBCUTANEOUS DAILY 07/17/202044 -- 07/17/202044 pneumatic compression stockings (fl,mi) 07/17/202044 activity - mobilize patient ([place], [place]) VTE Prophylaxis: VTE prophylaxis appropriate GI Prophylaxis: Not indicated Telemetry: Not indicated Disposition: To be determined Code Status: Not on file Plan of care discussed with: Provider, RN, Patient SIGNATURE: Mca Negron DO PATIENT NAME: Khanh De La Vega DATE: July 22, 2020 TIME: 10:00 AM Normal [facility] TEICHOIC ACID ABSon 07-22-20 20 Teichoate Ab Immune diff (S) [Titer] <1:2 Normal Not Detected [facility] Comment on above: Order Comment: Speci men Type: BLOOD SPECIMEN Result Comment: (NOT E) INTERPRETIVE INFORMATION: Teichoic Acid Abs Titers of 1:2 or greater indicate possible deep seated S. aureus infection. Performed By: [employer] [address] [place] [id number] Corporate Operations Compliance Manager: Reva Lackey MD Performed By: #### 9 4500-6 #### [facility] CLIA [id number] [address] [place] [address] Bas Metab 2000 Pnl SerPlon 1 Anion gap [Moles/Vol] 9 mmol/L Normal 9-18 [facility] Comment on above: Order Comment: Speci men Type: BLOOD SPECIMEN Performed By: #### 9 4500-6 #### [facility] CLIA [id number] [address] [place] [address] Calcium [Mass/Vol] 8.8 mg/dL Normal 8.5-10.2 [facility] Comment on above: Order Comment: Speci men Type: BLOOD SPECIMEN Performed By: #### 9 4500-6 #### [facility] CLIA [id number] [address] [place] [address] Chloride [Moles/Vol] 92 mmol/L Low 97-105 [facility] Comment on above: Order Comment: Speci men Type: BLOOD SPECIMEN Performed By: #### 9 4500-6 #### [facility] CLIA [id number] [address] [place] [address] CO2 [Moles/Vol] 27 mmol/L Normal 22-30 [facility] Comment on above: Order Comment: Speci men Type: BLOOD SPECIMEN Performed By: #### 9 4500-6 #### [facility] CLIA [id number] [address] [place] [address] Creatinine [Mass/Vol] 0.70 mg/dL Low 0.73-1.22 [facility] Comment on above: Order Comment: Speci men Type: BLOOD SPECIMEN Performed By: #### 9 4500-6 #### [facility] CLIA [id number] [address] [place] [address] GFR/1.73 sq M.predicted MDRD (S/P/Bld) [Vol rate/Area] mL/min/{1.73_m2} Normal [facility] Comment on above: Order Comment: Speci men Type: BLOOD SPECIMEN Result Comment: >60 eGFR (Estimated GFR) Units of measure: mL/min/1.73 meters squared eGFR is derived from the reexpressed MDRD Study equation using the following parameters: serum creatinine, age, gender and race. The creatinine assay has been calibrated to be traceable to IDMS. An eGFR <60 mL/min/1.73m2 for >3 months is consistent with chronic kidney disease. Refer to KDOQI guidelines for clinical interpretation. In patients with unstable renal function, e.g. those with acute kidney injury, the eGFR may not accurately reflect actual GFR. Performed By: #### 9 4500-6 #### [facility] CLIA [id number] [address] [place] [address] Glucose [Mass/Vol] 94 mg/dL Normal 74-99 [facility] Comment on above: Order Comment: Speci men Type: BLOOD SPECIMEN Result Comment: The [place] Diabetes Association (ADA) provides guidance for cutoff values for fasting glucose and random glucose. The ADA defines fasting as no caloric intake for at least 8 hours. Fasting plasma glucose results between 100 to 125 mg/dL indicate increased risk for diabetes (prediabetes). Fasting plasma glucose results greater than or equal to 126 mg/dL meet the criteria for diagnosis of diabetes. In the absence of unequivocal hyperglycemia, results should be confirmed by repeat testing. In a patient with classic symptoms of hyperglycemia or hyperglycemic crisis, random plasma glucose results greater than or equal to 200 mg/dL meet the criteria for diagnosis of diabetes. Reference: Standards of Medical Care in Diabetes 2016, [employer] Diabetes Association. Diabetes Care. 2016.39(Suppl 1). Performed By: #### 9 4500-6 #### [facility] CLIA [id number] [address] [place] [address] Potassium [Moles/Vol] 4.5 mmol/L Normal 3.7-5.1 [facility] Comment on above: Order Comment: Speci men Type: BLOOD SPECIMEN Performed By: #### 9 4500-6 #### [facility] CLIA [id number] [address] [place] [address] Sodium [Moles/Vol] 128 mmol/L Low 136-144 [facility] Comment on above: Order Comment: Speci men Type: BLOOD SPECIMEN Performed By: #### 9 4500-6 #### [facility] CLIA [id number] [address] [place] [address] Urea nitrogen [Mass/Vol] 13 mg/dL Normal 9-24 [facility] Comment on above: Order Comment: Speci men Type: BLOOD SPECIMEN Performed By: #### 9 4500-6 #### [facility] CLIA [id number] [address] [place] [address] CBC (hemogram) Bld [employer] Erythrocyte distribution width (RBC) [Ratio] 13.9 % Normal 11.5-15.0 [facility] Comment on above: Order Comment: Speci men Type: BLOOD SPECIMEN Performed By: #### 6 00-7 #### [facility] CLIA [id number] [address] [place] [address] Hematocrit (Bld) [Volume fraction] 31.9 % Low 39.0-51.0 [facility] Comment on above: Order Comment: Speci men Type: BLOOD SPECIMEN Performed By: #### 6 00-7 #### [facility] CLIA [id number] [address] [place] [address] Hemoglobin (Bld) [Mass/Vol] 10.3 g/dL Low 13.0-17.0 [facility] Comment on above: Order Comment: Speci men Type: BLOOD SPECIMEN Performed By: #### 6 -7 #### [facility] CLIA [id number] [address] [place] [address] MCH (RBC) [Entitic mass] 27.1 pg Normal 26.0-34.0 [facility] Comment on above: Order Comment: Speci men Type: BLOOD SPECIMEN Performed By: #### 6 -7 #### [facility] CLIA [id number] [address] [place] [address] MCHC (RBC) [Mass/Vol] 32.3 g/dL Normal 30.5-36.0 [facility] Comment on above: Order Comment: Speci men Type: BLOOD SPECIMEN Performed By: #### 6 -7 #### [facility] CLIA [id number] [address] [place] [address] MCV (RBC) [Entitic vol] 83.9 fL Normal 80.0-100.0 [facility] Comment on above: Order Comment: Speci men Type: BLOOD SPECIMEN Performed By: #### 6 -7 #### [facility] CLIA [id number] [address] [place] [address] Nucleated RBC (Bld) [#/Vol] 10*3/uL Normal <0.01 [facility] Comment on above: Order Comment: Speci men Type: BLOOD SPECIMEN Performed By: #### 6 7 #### [facility] CLIA [id number] [address] [place] [address] Platelet mean volume (Bld) [Entitic vol] 10.6 fL Normal 9.0-12.7 [facility] Comment on above: Order Comment: Speci men Type: BLOOD SPECIMEN Performed By: #### 6 -7 #### [facility] CLIA [id number] [address] [place] [address] Platelets (Bld) [#/Vol] 243 10*3/uL Normal 150-400 [facility] Comment on above: Order Comment: Speci men Type: BLOOD SPECIMEN Performed By: #### 6 -7 #### [facility] CLIA [id number] [address] [place] [address] RBC (Bld) [#/Vol] 3.80 10*6/uL Low 4.20-6.00 [facility] Comment on above: Order Comment: Speci men Type: BLOOD SPECIMEN Performed By: #### 6 00-7 #### [facility] CLIA [id number] [address] [place] [address] WBC (Bld) [#/Vol] 21.81 10*3/uL High 3.70-11.00 [facility] Comment on above: Order Comment: Speci men Type: BLOOD SPECIMEN Performed By: #### 6 00-7 #### [facility] CLIA [id number] [address] [place] [address] CONSULT PROGon 07-21-2020 CONSULT PROG HNO ID: [id number] Author: Pancho Calderon (Pharmacist) Service: Pharmacy Author Type: Pharmacist Type: Consult Progress Note Filed: 07/21/2020 8:21 AM Note Text: PHARMACY VANCOMYCIN DOSING NOTE Patient Name: Khanh De La Vega Admission Date: 07/17/2020 Date of Consult: 07/21/2020 Time of Consult: 8:14 AM Indication: Endocarditis Goal Range: 15-25 mcg/mL RECOMMENDATIONS/PLAN: Pharmacy consulted for vancomycin dosing for Khanh De La Vega, a 35 year old, male who is being treated with vancomycin for Endocarditis 1. Patient is currently ordered 1.5g q8h. Today is day 4 of therapy. 2. The most recent vancomycin level was 23.1 mcg/mL drawn at 0559 on . This is a 6 hour level on the 4th day of therapy. Original level planned for 1400 today- appears level drawn erroneously with AM labs. This is an early level - true trough likely closer to 18-20 mcg/ml. Patient had prior 7.5hr level of 10.9 on 1.25g q8h- so hesitate to decrease dose due to the nature of the infection and no signs of renal dysfunction. Patient also had a therapeutic level on this regimen on 07/20. Will continue with current 1.5g q8h dosing for now and plan another level on Thursday to ensure patient is not supra-therapeutic. 3. The present dose of vancomycin is the recommended dosage for this patient at this time. Continue therapy as prescribed. 4. The next vancomycin level will be ordered for 07/23 at 1400 unless clinically indicated sooner. (Pharmacy will order) We will follow patient renal function, vancomycin levels and doses with you during the course of therapy. Additional recommendations will appear in follow up notes. If [place] have [place] [phone]. Age: [age] year old Allergies: ALLERGIES Allergen Reactions - Penicillins Swelling - Sulfa (Sulfonamide * Swelling Last 3 Encounter Wt Readings: Date: Wt: 07/17/2020 73.3 kg (161 lb 9.6 oz) 11/23/2019 81.6 kg (180 lb) 02/25/2018 81.6 kg (180 lb) Last 1 Encounter Ht Readings: Date: Ht: 07/17/2020 175.3 cm (5' 9) CrCl: 145 mL/min Temp (24hrs), Av.6 ?C (99.7 ?F), Min:36.9 ?C (98.4 ?F), Max:38.4 ?C (101.1 ?F) - Current Temp: 37.9 ?C (100.2 ?F) Labs BUN (mg/dL) Date Value 07/21/2020 13 07/20/2020 16 07/19/2020 15 02/10/2018 16 04/23/2017 8 04/21/2017 10 Creatinine (mg/dL) Date Value 07/21/2020 0.70 (L) 07/20/2020 0.73 07/19/2020 0.75 02/10/2018 0.92 04/23/2017 0.81 04/21/2017 0.88 WBC Date Value 07/21/2020 21.81 k/uL (H) 07/20/2020 19.91 k/uL (H) 07/19/2020 20.38 k/uL (H) 02/10/2018 10.24 thou/cmm (H) 04/23/2017 9.9 thou/cmm 04/21/2017 9.9 thou/cmm Vancomycin Levels: Vancomycin (ug/mL) Date/Time Value 07/21/2020 0559 23.1 (H) 07/20/2020 0554 17.4 PANCHO CALDERON, PHARMACIST Normal [facility] PROGRESSon 07-21-2020 PROGRESS HNO ID: [id number] Author: Lakhwinder Morris Service: Infectious Disease Author Type: Physician Type: Progress Notes Filed: 07/21/2020 1:21 PM Note Text: 1:20 PM BC from 07/17 remain negative. A/P: Check teichoic acid antibodies and ASO titer Continue empiric vanco and cefepime Normal [facility] PROGRESS HNO ID: [id number] Author: Campos Mcgowan Service: Pain Management Author Type: Physician Type: Progress Notes Filed: 07/21/2020 8:37 AM Note Text: Name: KHANH DE LA VEGA Age: [age] year old PAIN MANAGEMENT: Back pain, TV endocarditis, IVDA; opiate dependent Pain Description: Complains of entire back and all his muscles hurting. Interval HPI: T-max to 38 4, he remains reasonably comfortable, still with persisting and ongoing severe back pain, hurting, sharp, does get relief with methadone. GRICELDA has been recommended, pending Blood cultures have been negative to date. On examination he appeared in stable health and spirits. Vital signs as documented. Skin warm and dry and without overt rashes. Neck without JVD. Lungs clear. Heart exam notable for unchanged rhythm, normal sounds and absence of murmurs, rubs or gallops. Abdomen unremarkable and without evidence of organomegaly, masses, or abdominal aortic enlargement. Extremities unchanged 24H Comfort Meds: Tylenol 650 mg x 1 Methadone 10 mg twice daily Methadone 5 mg x 1 Antibiotic Therapy: Cefepime, vancomycin Subjective HPI: 35-year-old male with history of active IVDA (heroin, fentanyl, methamphetamine-daily times years), hepatitis C presented to [facility] 07/13 with worsening fatigue, fevers. Patient was noted to have leukocytosis; urine drug screen positive for opiates and amphetamines. TTE demonstrated 0.5 x 1 cm tricuspid valve vegetation. Patient was started on IV vancomycin and Zosyn. He was briefly treated with Suboxone for opiate withdrawal. He was transferred to [facility] 07/17 for evaluation by CTS for possible surgery. Patient states he last used IV heroin and methamphetamine on 07/13. He was intolerant of Suboxone in the past due to GI upset. He had been on it for about 3 months 5 years ago. He has not been on methadone maintenance. He complains of back pain as well as some mild withdrawal symptoms. OARRS Review: 1 prescription [place] 5/325 #10 Current Facility-Administered Medications Medication Dose Route Frequency Provider Last Rate Last Dose - methadone 10 mg tab(s) (DOLOPHINE) 10 mg ORAL BID Marilyn K Scantling 10 mg at 07/20/202102 - sodium chloride 0.9 % (flush) 10 mL (BD POSIFLUSH) 10 mL INTRAVENOUS q 12 H Amarjit (Res) MD Tere 10 mL at 07/20/20 2100 - sodium chloride 0.9 % (flush) 20 mL (BD POSIFLUSH) 20 mL INTRAVENOUS PRN Amarjit (Res) MD Tere - bisacodyl 10 mg suppository (DULCOLAX) 10 mg RECTAL DAILY PRN Amarjit (Res) MD Tere - prochlorperazine 10 mg tab(s) (COMPAZINE) 10 mg ORAL q 6 H PRN Amarjit (Res) MD Tere - vancomycin iv piggyback 1.5 g in D5W 250 mL (VANCOCIN) 1.5 g INTRAVENOUS q 8 H Fabienne Dorado (Postal Service Mail Processor) 250 mL/hr at 07/21/20 000 1.5 g at 07/21/20 000 - senna-docusate 8.6-50 mg 2 tablet (SENNA-S) 2 tablet ORAL BID Amarjit (Res) MD Tere 2 tablet at 07/20/202102 - polyethylene glycol 3350 17 g packet (MIRALAX, GLYCOLAX) 17 g ORAL DAILY Amarjit (Res) MD Tere 17 g at 07/20/20928 - methadone 5 mg tab(s) (DOLOPHINE) 5 mg ORAL q 4 H PRN Marilyn K Scantling 5 mg at 07/20/20 1835 - nicotine 14 mg/24 hr 1 Patch (NICODERM) 1 Patch TRANSDERMAL DAILY Amarjit (Res) MD Tere 1 Patch at 07/20/20928 And - nicotine -- REMOVE patch OTHER DAILY Amarjit (Res) MD Tere And - nicotine - verify patch OTHER q 8 H Amarjit (Res) MD Tere - cefepime 2 g in D5W 100 mL MB+ (MAXIPIME) 2 g INTRAVENOUS q 8 HR Stevo Bowens III 200 mL/hr at 07/20/202101 2 g at 07/20/202101 - perflutren lipid microspheres 1.1 mg/mL 1.3 mL injection (DEFINITY) 1.3 mL INTRAVENOUS DIRECTED PRN Stevo Bowens III - vancomycin dosing and monitoring per pharmacy OTHER As Directed Minerva (Res) Rath - enoxaparin 40 mg injection (LOVENOX) 40 mg SUBCUTANEOUS DAILY Minerva (Res) Rath 40 mg at 07/20/20 09 - ondansetron 4 mg tab(s) (ZOFRAN) 4 mg ORAL q 6 H PRN Minerva (Res) Rath Or - ondansetron (PF) 4 mg injection (ZOFRAN) 4 mg INTRAVENOUS q 6 H PRN Minerva (Res) Rath 4 mg at 07/17/202230 - acetaminophen 650 mg tab(s) (TYLENOL) 650 mg ORAL q 6 H PRN Minerva (Res) Rath 650 mg at 07/20/202110 - hydrOXYzine HCl 50 mg tab(s) (ATARAX) 50 mg ORAL q 6 H PRN Minerva (Res) Rath No medications prior to admission. Social History Tobacco Use - Smoking status: Current Every Day Smoker Packs/day: 1.00 Types: Cigarettes - Smokeless tobacco: Never Used Substance Use Topics - Alcohol use: Yes Comment: socially - Drug use: Yes Types: Crystal Meth, Marijuana, Heroin, Amphetamines Comment: pt does inject No family history on file. PAST SURGICAL HISTORY Procedure Laterality Date - ORTHOPEDICS SURGERY HX Right pins placed in right hand ROS: All of the following reviewed and negative except as noted below: Significant for HPI GENERAL: no fever, chills, sweats, weight loss, fatigue, generalized weakness HEENT: no headache, vision changes, eye discomfort, hearing change, ear discomfort, sinus pain, nasal discharge or congestion, oral lesions, soreness, dental problem NECK: no adenopathy, discomfort, change in ROM CHEST: no shortness of breath, dyspnea on exertion, wheezing, cough, sputum production or chest pain HEART: no chest pain, palpitations, syncope ABDOMEN: no nausea, vomiting, constipation, diarrhea, abdominal pain : no dysuria, urgency, frequency, history of stones, incontinence NEURO: no confusion or alteration in consciousness, slurred speech, seizure, focal weakness EXTREMITIES: no new pain, edema, change in ROM HEME: no new adenopathy, bruises, petechiae PSYCH: no depression, anxiety, agitation PAIN PSYCHIATRIC EXAM: GENERAL: alert, oriented to person, place, time JUDGMENT AND INSIGHT: intact APPEARANCE: neatly groomed DEMEANOR: coooperative, not hostile, mistrustful, preoccupied, or demanding ACTIVITY: normal, not hyperactive or hypoactive, no tremors, tics EYE CONTACT: normal SPEECH: normal, rate, volume, articulation, coherence, spontaneity MOOD: normal, without overt sadness, grief, anxiety, appropriate to situation IDEATION: Deferred MEMORY: intact PHYSICAL EXAMINATION: GENERAL: well nourished and developed; no acute distress; alert and oriented x 3; intact judgement and insight HEENT: no evidence of trauma; cranial nerves intact; eyes clear EOMI; no hearing deficits apparent; nasal passages unremarkable; throat and mucous membranes clear NECK: supple without lymphadenopathy; no JVD; no thyromegaly CHEST: clear bilaterally to auscultation; normal chest movement; no rales or rhonchi HEART: regular rate and rhythm, 2/6 systolic murmur ABDOMEN: soft; nondistended; bowel sounds present; no hepatomegaly; no splenomegaly; no tenderness EXTREMITIES: no evidence of clubbing; no cyanosis; no deformity; no joint effusion; no edema NEURO: cranial nerves intact; no focal deficits; no confusion; no tremor; sensorium normal SKIN: no rash; no skin breakdown; no decubitus lesions HEME: no bruising; no adenopathy PSYCH: no evidence of depression; no anxiety; no agitation; no apparent hallucinations BP 98/55 Pulse 75 Temp 37.6 ?C (99.7 ?F) (Oral) Resp 16 Ht 175.3 cm (5' 9) Wt 73.3 kg (161 lb 9.6 oz) SpO2 95% BMI 23.86 kg/m? BMI 23.86 kg/(m2) ABNORMAL/NEW FINDINGS: NONE RADIOLOGY/DIAGNOSTICS: LABORATORY: CBC: Recent Labs 07/20/20 0554 WBC 19.91* RBC 3.69* HB 10.1* HCT 30.9* PLT 229 MCV 83.7 MCH 27.4 MPV 9.9 CMP: Recent Labs 07/20/20 1548 07/20/20 0554 NA 130* 126* K -- 4.2 CHLOR -- 92* CO2 -- 28 BUN -- 16 CREAT -- 0.73 GLUC -- 106* CA -- 8.5 ANION -- 6* Heme: No results for input(s): RETICP, ABSRETIC, LD, YEIMY, FE, TIBC, TRANSFERSAT in the last 24 hours. 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 Continue IV vancomycin and cefepime. Per Review of his chart, patient on brief Suboxone taper at [facility] for opiate withdrawal Ongoing complaints of back pain, rule out osteomyelitis Schedule methadone 10 mg twice daily Methadone 5 mg every 4 hours as needed pain Patient not interested in Suboxone; intolerant of it in the past due to GI upset Plan for continued adjustment of his methadone as needed, Campos Mcgowan MD ADDENDUM: Portions of this note were copied so as to provide important historical information essential in contributing to medical decision making today. ADDENDUM: Even the portions of this note that were copied have been reviewed completely and edited so as to result in a note that most accurately reflects my complete evaluation today. Normal [facility] PROGRESS HNO ID: [id number] Author: Mac (Eliseo Negron Service: Hospital Medicine Author Type: Resident Type: Progress Notes Filed: 07/21/2020 1:01 PM Note Text: Attestation signed by Nader Scales at 07/22/2020 9:18 AM Attending Note I personally saw and examined the patient on 07/21/20. I reviewed the resident's note. I agree with the resident's assessment and plan unless otherwise noted. Signature: Nader Scales, DO Date: 07/22/2020 Time: 9:18 AM Pager: [phone] HOUSE MEDICINE SERVICE PROGRESS NOTE SERVICE DATE: July 21, 2020 SERVICE TIME: 1:01 PM NIGHT AND WEEKEND COVERAGE: From 6 AM to 5 PM: You may reach the House Medicine sales and marketing intern currently assigned to this patient by finding their pager number on the treatment team (they will be assigned as the sales and marketing intern or resident). It is the last four digits in the phone number beginning with ([phone]). We encourage the use of D[employer] Secure Chat. PCP: No primary care provider on file. Admitting Attending: Elijah Hill SUBJECTIVE Chief Complaint: Fever/ fatigue HPI: Patient is a 35 yr male who is a chronic IVDU since 2009 and Hep C positive ( antibody positive on 11/23/19), presented to the [facility] for chronic fatigue on 07/13/20. He was found to have opiate withdrawal symptoms and had spiking fevers maximum temp being 102 F, raised WBC and negative blood cultures (07/15). His urine tox was positive for opiates, amphetamines and opiates. 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 ID consultation was done and his zosyn was switched to cefepime. He was treated for b with buprenorphine which was tapered. He was found to be negative for HIV and Hep B and his WBCs started trending down, however he still spiked fevers. Repeat blood cultures on 07/15 were sent which is still pending. He was transferred to [facility] for CT surgery evaluation for possible surgery for his IE. During my encounter, patient was febrile 102 F. Complaints of global pain. He admitted to intermittent abdominal discomfort and said he had been constipated for 3 days. He denied any chest pain, palpitations, lightheadedness, or bilateral LL swelling. He said his last IVDU was on Thursday morning (07/13/20) before he presented to the hospital. He denied the use of leg veins for the same. Of note, he was covid positive on 06/29/20 however he was tested negative during his hospital admission in [place]. Interval events: - Admits to feeling hot. Denies LUBIN, Nausea, CP, SOB. - Patient had a fever of 101.1 over night. -Today he states he feels OK. He still has generalized pain. - Patient did not have PICC line placed due to hesitancy that it would be painful. - SNF placement process in placement. - Echo shows 1.5 x .8 cm vegetation. Recommend GRICELDA by radiologist (CT surgery agrees). GRICELDA ordered - Pain management per PM team. On methadone. PAST MEDICAL HISTORY Diagnosis Date - Anxiety - Depression - Paranoid schizophrenia (HCC) PAST SURGICAL HISTORY Procedure Laterality Date - ORTHOPEDICS SURGERY HX Right pins placed in right hand No family history on file. Social History Tobacco Use - Smoking status: Current Every Day Smoker Packs/day: 1.00 Types: Cigarettes - Smokeless tobacco: Never Used Substance Use Topics - Alcohol use: Yes Comment: socially - Drug use: Yes Types: Crystal Meth, Marijuana, Heroin, Amphetamines Comment: pt does inject Medications: No medications prior to admission. ALLERGIES Allergen Reactions - Penicillins Swelling - Sulfa (Sulfonamide * Swelling OBJECTIVE: Vital Signs: BP 120/82 Pulse 92 Temp (Src) 100.2 (Oral) Resp 16 Ht 5' 9 (1.75m) Wt 161 lb 9.6 oz (73.3kg) SpO2 95% BMI 23.85 kg/(m2). O2 Therapy: Room Air Physical Exam Performed: GENERAL: Alert, no distress, cooperative SKIN: Skin color, texture, turgor normal. Multiple tattoos on bilateral UL, bruises on right antecubital fossa HEAD/SINUSES: No significant findings EYES: PERRLA, EOMI EARS: External ears normal, canals clear NOSE: Nares normal. Septum midline. OROPHARYNX: Lips, mucosa, and tongue normal. Multiple teeth absent with soft gums. Oropharynx normal. NECK: No jugulovenous distention, No carotid bruits, Carotid pulse normal contour, Supple BACK: Back symmetric, Normal curvature, ROM normal, No CVAT. LUNGS: Lungs clear to auscultation, Good diaphragmatic excursion CARDIAC: Normal S1 and S2; no rubs, murmurs, or gallops ABDOMEN: Abdomen soft, Mildly tender to palpation epigastric, BS normal, No masses or organomegaly EXTREMITIES: Extremities normal, no deformities, edema, clubbing or skin discoloration. Good capillary refill., No ulcers NEURO: Gait normal. Reflexes normal and symmetric. Sensation grossly intact, Cranial nerves II-XII intact PULSES: 2+ radial, 2+ carotid Lines, Drains, and Airways Line Peripheral 07/20/20 1032 Assessment Short Left Antecubital 20 Gauge less than 1 day Reviewed lines and needs to be continued: REASONS: Intravenous antibiotics Data: There is no new data today. WBC Date Value 07/17/2020 15.34 k/uL (H) 02/10/2018 10.24 thou/cmm (H) RBC Date Value 07/17/2020 3.91 m/uL (L) 02/10/2018 4.70 mil/cmm Hemoglobin (g/dL) Date Value 07/17/2020 10.8 (L) 04/17/2014 15.1 HGB (g/dL) Date Value 02/10/2018 13.6 (L) Hematocrit (%) Date Value 07/17/2020 32.2 (L) 02/10/2018 40.9 MCV Date Value 07/17/2020 82.4 fL 02/10/2018 87.0 fl MCH (pg) Date Value 07/17/2020 27.6 02/10/2018 28.9 MCHC Date Value 07/17/2020 33.5 g/dL 02/10/2018 33.3 % RDW-CV (%) Date Value 07/17/2020 13.8 Platelet Count Date Value 07/17/2020 191 k/uL 02/10/2018 299 thou/cmm MPV Date Value 07/17/2020 9.6 fL 02/10/2018 10.4 fl Glucose (mg/dL) Date Value 07/17/2020 111 (H) 02/10/2018 98 BUN (mg/dL) Date Value 07/17/2020 10 02/10/2018 16 Creatinine (mg/dL) Date Value 07/17/2020 0.74 02/10/2018 0.92 Sodium Date Value 07/17/2020 130 mmol/L (L) 02/10/2018 138 mEq/L Potassium Date Value 07/17/2020 4.3 mmol/L 02/10/2018 3.4 mEq/L (L) Chloride Date Value 07/17/2020 93 mmol/L (L) 02/10/2018 110 mEq/L (H) CO2 Date Value 07/17/2020 26 mmol/L 02/10/2018 24 mEq/L Protein, Total (g/dL) Date Value 07/17/2020 7.9 04/23/2017 7.5 Albumin (g/dL) Date Value 04/23/2017 3.5 Calcium (mg/dL) Date Value 02/10/2018 8.8 Calcium, Total (mg/dL) Date Value 07/17/2020 8.6 Alkaline Phosphatase (U/L) Date Value 07/17/2020 120 (H) 04/23/2017 85 Bilirubin, Total (mg/dL) Date Value 07/17/2020 0.3 04/23/2017 0.4 AST (U/L) Date Value 07/17/2020 27 04/23/2017 26 ALT (U/L) Date Value 07/17/2020 13 04/23/2017 30 URINALYSIS Specific [place], Ur Date Value Ref Range Status 02/10/2018 1.028 1.005 - 1.030 Final Glucose, Urine Date Value Ref Range Status 02/10/2018 NEGATIVE Negative mg/dL Final Bilirubin, Urine Date Value Ref Range Status 02/10/2018 see below (A) Negative Final Comment: Detected (Unable to confirm). Ketones, Urine Date Value Ref Range Status 02/10/2018 TRACE (A) Negative mg/dL Final Protein, Urine Date Value Ref Range Status 02/10/2018 TRACE (A) Negative mg/dL Final Urobilinogen, Urine Date Value Ref Range Status 02/10/2018 1.0 0.0 - 1.0 EU/dL Final WBC, Urine Date Value Ref Range Status 02/10/2018 1.0 0.0 - 5.0 /hpf Final Assessment/Plan Problem List Infective endocarditis Methamphetamine dependence (HCC) Cannabis dependence (HCC) Nicotine use disorder, F17.2 IVDU (intravenous drug user) Fever Leucocytosis Hepatitis C antibody positive in blood Mild protein-calorie malnutrition (HCC) Hyponatremia Active Problems: Infective endocarditis likely due to IVDU Fever Leucocytosis - Chronic IVDU since 2009 - TTE done in outside hospital showed : tricuspid valve vegetation 1 X 0.5 cm - Multiple spikes of fever max temp of 102 F - Raised WBC 14 k on discharge from outside hospital - Blood cultures on 07/13 during admission negative and repeat blood cultures on 07/15 pending - Continue IV Vancomycin and Cefepime 2 mg daily empirically. Per ID - CT surgery consult for possible surgery. Echo repeat shows EF 59% with vegetation on 1.5 x 0.8cm on Tricuspid valve. GRICELDA recommended. - CT surgery agrees with GRICELDA. GRICELDA ordered - Blood cultures repeated on 07/17, NGTD 1 - ID consulted, appreciate recommendations - CT surgery consulted, appreciate recommendations. - CT chest ordered by tax credit leasing consultant. - Trend WBCs 07/19/20 at 21 from 20 - Monitor Hemodynamics. Stable -SW: possible SNIF considering need for terminal system operator abx. Referral sent -Picc line ordered for anticipatory use of abx x 6 weeks.Pt refused yesterday but now agrees to procedure. - B-d glucan and galactamannan per ID pending. Chronic IVDU / Polysubstance abuse: - Was on buprenorphine taper in the outside hospital - Placed on tylenol for mild pain - DC Oxycodone IR - DC Morphine - Pain management consultation done. Started Methadone. - Hydroxyzine q6h Prn for anxiety - Counseled on dangers and consequence of this behavior. Constipation -Likely 2/2 to chronic opioid use. -dc morphine and oxycodone -Started on senna docusate and miralax. - Repeat suppository. Hypotonic Hyponatremia. Euvolemic state - 130 on admission. Asymptomatic - Continue to monitor. - today at 128 from 126. Improving - Urine / serum osmolality at 564/275 . Urine Na at 64. Likely 2/2 SIADH - fluid restriction. Patient encouraged to limit H2O consumption. Normocytic anemia in the setting of Endocarditis -Hgb 10.8 -MCV 82.4 - Monitor labs and symptoms Nicotine use disorder - Placed on Nicotine patch 14mg - counseled to quit Disposition - Patient is homeless - OT/PT eval : dispo: SNF - family independence case manager consulted Medication and Non-Pharmacologic VTE Prophylaxis/Anticoagul ants Anticoagulant AND Antiplatelet Medications (From admission, onward) Start Dose Route Frequency Ordered Stop 07/17/202099 enoxaparin 40 mg injection (LOVENOX) (Medical Risk Categories) 40 mg SUBCUTANEOUS DAILY 07/17/202044 -- 07/17/202044 pneumatic compression stockings (ct,mi) 07/17/202044 activity - mobilize patient ([place]) VTE Prophylaxis: VTE prophylaxis appropriate GI Prophylaxis: Not indicated Telemetry: Not indicated Disposition: To be determined Code Status: Not on file Plan of care discussed with: Provider, RN, Patient SIGNATURE: Mac Negron DO PATIENT NAME: Khanh De La Vega DATE: July 21, 2020 TIME: 10:00 AM [facility] VANCOMYCINon 07-21-2020 Vancomycin [Mass/Vol] 23.1 ug/mL High 10.0-20.0 [facility] Comment on above: Order Comment: Speci men Type: BLOOD SPECIMEN Result Comment: Refe rence ranges and high/low indicator flags are provided as general guidelines only. The treating physician must determine appropriate target levels/dosing based on the specific clinical situation. Performed By: #### V ANCRA #### [facility] CLIA [id number] [address] [place] [address] 2018 CORONAVIRUSon 0 2019 CORONAVIRUS COVID 19 SOURCE SHRIMP PEELER: UPPER RESPIRATORY TRACT SWAB Called to and read back by: INDY Burnett [place] [id number] 07/22/20 0650 [facility] COVID 19 RESULT SHRIMP PEELER: Positive for COVID19 (SARS CoV2) by PCR.(*) This test was developed and its performance characteristics determined by [facility] [place]. This test has been authorized by FDA under an Emergency Use Authorization (EUA). This test has been validated in accordance with the FDA's Guidance Document Policy for Diagnostics Testing in Laboratories Certified to Perform High Complexity Testing under CLIA prior to Emergency use Authorization for Coronavirus Disease 2019 during the Public Health Emergency issued on November 26, 2019. Normal [facility] Comment on above: Performed By: #### C OVID #### [facility] CLIA [id number] [address] [place] [address] [facility] 07-20-2020 ALLIED HEALTH HNO ID: [id number] Author: Aida Snyder (Chaplain) Service: Spiritual Care Author Type: Type: Allied Health Filed: 07/20/2020 11:36 AM Note Text: SPIRITUAL CARE PROGRESS NOTE SERVICE DATE: 07/20/2020 SERVICE TIME: 11.00am Lard Renderer visited pt while on rounds. After short visit where pt indicated strong molly, pt requested that energy conservation specialist come back later. Lard Renderer will follow up later in the day. To contact the Spiritual Care Department: Please call [phone]. SIGNATURE: Chaplain Natasha PATIENT NAME: Khanh De La Vega DATE: July 20, 2020 TIME: 11:35 AM PAGER/CONTACT #: [phone] Normal [facility] ASPERGILLUS GALACTOMANNAN SE RUMon 07-20-2020 Galactomannan Ag IA Ql Negative Normal NEGAT [facility] Comment on above: Order Comment: Speci men Type: BLOOD SPECIMEN Result Comment: Aspe rgillus galactomannan antigen not detected in this sample. A negative result may indicate that the patient's result is below the detectable level of the assay. Negative results do not rule out the diagnosis of Invasive Aspergillosis. Repeat testing is recommended if the result is negative,but the disease is suspected. Performed By: #### V ANCRA #### [facility] CLIA [id number] 1 [place] [address] Galactomannan Ag IA Qn <0.[address] [facility] Comment on above: Order Comment: Speci men Type: BLOOD SPECIMEN Result Comment: Inde x Values are Interpreted as Follows: Negative specimens <0.50 Positive specimens >=0.50 Performed By: #### V ANCRA #### [facility] CLIA [id number] 1 [place] [address] Bas Metab 2000 Pnl SerPlon 1 Anion gap [Moles/Vol] 6 mmol/L Low 9-18 [facility] Comment on above: Order Comment: Speci men Type: BLOOD SPECIMEN Performed By: #### 2 4321-2 #### [facility] CLIA [id number] 1 [place] [address] Calcium [Mass/Vol] 8.5 mg/dL Normal 8.5-10.2 [facility] Comment on above: Order Comment: Speci men Type: BLOOD SPECIMEN Performed By: #### 2 4321-2 #### [facility] CLIA [id number] 1 [place] [address] Chloride [Moles/Vol] 92 mmol/L Low 97-105 [facility] Comment on above: Order Comment: Speci men Type: BLOOD SPECIMEN Performed By: #### 2 4321-2 #### [facility] CLIA [id number] 1 [place] [address] CO2 [Moles/Vol] 28 mmol/L Normal 22-30 [facility] Comment on above: Order Comment: Speci men Type: BLOOD SPECIMEN Performed By: #### 2 4321-2 #### [facility] CLIA [id number] 1 [place] [address] Creatinine [Mass/Vol] 0.73 mg/dL Normal 0.73-1.22 [facility] Comment on above: Order Comment: Speci men Type: BLOOD SPECIMEN Performed By: #### 2 4321-2 #### [facility] CLIA [id number] 1 [place] [address] GFR/1.73 sq M.predicted MDRD (S/P/Bld) [Vol rate/Area] mL/min/{1.73_m2} Normal [facility] Comment on above: Order Comment: Speci men Type: BLOOD SPECIMEN Result Comment: >60 eGFR (Estimated GFR) Units of measure: mL/min/1.73 meters squared eGFR is derived from the reexpressed MDRD Study equation using the following parameters: serum creatinine, age, gender and race. The creatinine assay has been calibrated to be traceable to IDMS. An eGFR <60 mL/min/1.73m2 for >3 months is consistent with chronic kidney disease. Refer to KDOQI guidelines for clinical interpretation. In patients with unstable renal function, e.g. those with acute kidney injury, the eGFR may not accurately reflect actual GFR. Performed By: #### 2 4321-2 #### [facility] CLIA [id number] 1 [place] [address] Glucose [Mass/Vol] 106 mg/dL High 74-99 [facility] Comment on above: Order Comment: Speci men Type: BLOOD SPECIMEN Result Comment: The [place] Diabetes Association (ADA) provides guidance for cutoff values for fasting glucose and random glucose. The ADA defines fasting as no caloric intake for at least 8 hours. Fasting plasma glucose results between 100 to 125 mg/dL indicate increased risk for diabetes (prediabetes). Fasting plasma glucose results greater than or equal to 126 mg/dL meet the criteria for diagnosis of diabetes. In the absence of unequivocal hyperglycemia, results should be confirmed by repeat testing. In a patient with classic symptoms of hyperglycemia or hyperglycemic crisis, random plasma glucose results greater than or equal to 200 mg/dL meet the criteria for diagnosis of diabetes. Reference: Standards of Medical Care in Diabetes 2016, [employer] Diabetes Association. Diabetes Care. 2016.39(Suppl 1). Performed By: #### 2 4321-2 #### [facility] CLIA [id number] 1 [place] [address] Potassium [Moles/Vol] 4.2 mmol/L Normal 3.7-5.1 [facility] Comment on above: Order Comment: Speci men Type: BLOOD SPECIMEN Performed By: #### 2 4321-2 #### [facility] CLIA [id number] 1 [place] [address] Sodium [Moles/Vol] 126 mmol/L Low 136-144 [facility] Comment on above: Order Comment: Speci men Type: BLOOD SPECIMEN Performed By: #### 2 4321-2 #### [facility] CLIA [id number] 1 [place] [address] Urea nitrogen [Mass/Vol] 16 mg/dL Normal 9-24 [facility] Comment on above: Order Comment: Speci men Type: BLOOD SPECIMEN Performed By: #### 2 4321-2 #### [facility] CLIA [id number] 1 [place] [address] CASE MANAGEMon 07-20-2020 CASE MANAGEM HNO ID: [id number] Author: Jennifer Grace (Sw) Service: Social Work Author Type: Product Transfer Pumper Type: Care Mgt Progress Note Filed: 07/20/2020 5:46 PM Note Text: CARE MANAGEMENT PROGRESS NOTE SERVICE DATE: 07/20/2020 SERVICE TIME: 5:40 PM LOS: 3 days Met with pt per MD request as pt refused PICC. Informed pt PICC is for IV antibiotics. Pt still in agreement with SNF and prefers [facility]. Pt states he would like a more detailed explanation re: PICC procedure. SIGNATURE: MARIS Mariee PATIENT NAME: Khanh De La Vega DATE: July 20, 2020 TIME: 5:40 PM PAGER/CONTACT #: [phone] Normal [facility] CBC (hemogram) Bld Autoon Erythrocyte distribution width (RBC) [Ratio] 13.8 % Normal 11.5-15.0 [facility] Comment on above: Order Comment: Speci men Type: BLOOD SPECIMEN Performed By: #### H ISTCL #### [facility] CLIA [id number] 1 [place] [address] Hematocrit (Bld) [Volume fraction] 30.9 % Low 39.0-51.0 [facility] Comment on above: Order Comment: Speci men Type: BLOOD SPECIMEN Performed By: #### H ISTCL #### [facility] CLIA [id number] [address] [place] [address] Hemoglobin (Bld) [Mass/Vol] 10.1 g/dL Low 13.0-17.0 [facility] Comment on above: Order Comment: Speci men Type: BLOOD SPECIMEN Performed By: #### H ISTCL #### [facility] CLIA [id number] [address] [place] [address] MCH (RBC) [Entitic mass] 27.4 pg Normal 26.0-34.0 [facility] Comment on above: Order Comment: Speci men Type: BLOOD SPECIMEN Performed By: #### H ISTCL #### [facility] CLIA [id number] [address] [place] [address] MCHC (RBC) [Mass/Vol] 32.7 g/dL Normal 30.5-36.0 [facility] Comment on above: Order Comment: Speci men Type: BLOOD SPECIMEN Performed By: #### H ISTCL #### [facility] CLIA [id number] [address] [place] [address] MCV (RBC) [Entitic vol] 83.7 fL Normal 80.0-100.0 [facility] Comment on above: Order Comment: Speci men Type: BLOOD SPECIMEN Performed By: #### H ISTCL #### [facility] CLIA [id number] [address] [place] [address] Nucleated RBC (Bld) [#/Vol] 10*3/uL Normal <0.01 [facility] Comment on above: Order Comment: Speci men Type: BLOOD SPECIMEN Performed By: #### H ISTCL #### [facility] CLIA [id number] [address] [place] [address] Platelet mean volume (Bld) [Entitic vol] 9.9 fL Normal 9.0-12.7 [facility] Comment on above: Order Comment: Speci men Type: BLOOD SPECIMEN Performed By: #### H ISTCL #### [facility] CLIA [id number] [address] [place] [address] Platelets (Bld) [#/Vol] 229 10*3/uL Normal 150-400 [facility] Comment on above: Order Comment: Speci men Type: BLOOD SPECIMEN Performed By: #### H ISTCL #### [facility] CLIA [id number] [address] [place] [address] RBC (Bld) [#/Vol] 3.69 10*6/uL Low 4.20-6.00 [facility] Comment on above: Order Comment: Speci men Type: BLOOD SPECIMEN Performed By: #### H ISTCL #### [facility] CLIA [id number] [address] [place] [address] WBC (Bld) [#/Vol] 19.91 10*3/uL High 3.70-11.00 [facility] Comment on above: Order Comment: Speci men Type: BLOOD SPECIMEN Performed By: #### H ISTCL #### [facility] CLIA [id number] 1 [place] [address] CONSULT PROGon 07-20-2020 CONSULT PROG HNO ID: [id number] Author: Jez Harry (Pharmacist) Service: Pharmacy Author Type: Pharmacist Type: Consult Progress Note Filed: 07/20/2020 6:43 AM Note Text: PHARMACY VANCOMYCIN DOSING NOTE Patient Name: Khanh De La Vega Admission Date: 07/17/2020 Date of Consult: 07/20/2020 Time of Consult: 6:39 AM Indication: Endocarditis Goal Range: 15-25 mcg/mL RECOMMENDATIONS/PLAN: Pharmacy consulted for vancomycin dosing for Khanh De La Vega, a 35 year old, male who is being treated with vancomycin for Endocarditis 1. Patient is currently ordered vancomycin IV 1.5 g q 8 h. Today is day 3 of therapy. 2. The most recent vancomycin level was 17.4 mcg/mL drawn at 0554 on 07-20-20. This is a ~8 hour level on the 3 day of therapy. 3. The present dose of vancomycin is the recommended dosage for this patient at this time. Continue therapy as prescribed. 4. The next vancomycin level has been ordered for 07-21-20@1400 (Completed) We will follow patient renal function, vancomycin levels and doses with you during the course of therapy. Additional recommendations will appear in follow up notes. If you have any questions[place] [phone]. Age: [age] year old Allergies: ALLERGIES Allergen Reactions - Penicillins Swelling - Sulfa (Sulfonamide * Swelling Last 3 Encounter Wt Readings: Date: Wt: 07/17/2020 73.3 kg (161 lb 9.6 oz) 11/23/2019 81.6 kg (180 lb) 02/25/2018 81.6 kg (180 lb) Last 1 Encounter Ht Readings: Date: Ht: 07/17/2020 175.3 cm (5' 9) CrCl: 139.9 mL/min Temp (24hrs), Av.1 ?C (98.7 ?F), Min:36.5 ?C (97.7 ?F), Max:37.7 ?C (99.9 ?F) - Current Temp: 36.5 ?C (97.7 ?F) Labs BUN (mg/dL) Date Value 07/20/2020 16 07/19/2020 15 07/17/2020 10 02/10/2018 16 04/23/2017 8 04/21/2017 10 Creatinine (mg/dL) Date Value 07/20/2020 0.73 07/19/2020 0.75 07/17/2020 0.74 02/10/2018 0.92 04/23/2017 0.81 04/21/2017 0.88 WBC Date Value 07/20/2020 19.91 k/uL (H) 07/19/2020 20.38 k/uL (H) 07/17/2020 15.34 k/uL (H) 02/10/2018 10.24 thou/cmm (H) 04/23/2017 9.9 thou/cmm 04/21/2017 9.9 thou/cmm Vancomycin Levels: Vancomycin (ug/mL) Date/Time Value 07/20/2020 0554 17.4 07/19/2020 0600 10.9 JEZ HARRY, PHARMACIST Normal [facility] FUNGAL HISTO BL CULTon 07-20 FUNGAL HISTO BL CULT CULTURE, FUNGAL: No Fungus isolated after 28 days Normal [facility] Comment on above: Performed By: #### H ISTCL #### [facility] CLIA [id number] 1 [place] [address] FUNGITELL ASSAY FOR (1,3)-B- D-GLUCANon 07-20-2020 1,3 beta glucan (S) [Mass/Vol] Indeterminate Abnormal Negative [facility] Comment on above: Order Comment: Speci men Type: BLOOD SPECIMEN Result Comment: (NOT E) INTERPRETIVE INFORMATION: (1,3)-uxrv-A-wmrsjs (Fungitell) Less than 31 pg/mL ................... Negative 31-59 pg/mL .......................... Negative 60-79 pg/mL .......................... Indeterminate Greater than or equal to 80 pg/mL .... Positive The Fungitell test is indicated for presumptive diagnosis of fungal infection and should be used in conjunction with other diagnostic procedures. This test does not detect certain fungal species such as Cryptococcus, which produce very low levels of (1,3)-jxky-V-waujtp. This test will not detect the zygomycetes, such as Absidia, Mucor, and Rhizopus, which are not known to produce (1,3)-qobb-F-jddjbi. In addition, the yeast phase of Blastomyces dermatitidis produces little (1,3)-uvpb-C-rxrirg and may not be detected by the assay. Performed By: [employer] [address] [place], [place] [id number] Corporate Operations Compliance Manager: Reva Lackey MD Performed By: #### 6 00-7 #### [facility] CLIA [id number] [address] [place] [address] FUNGITELL COMMENTS 68 pg/mL Normal [facility] Comment on above: Order Comment: Speci men Type: BLOOD SPECIMEN Performed By: #### 6 00-7 #### [facility] CLIA [id number] 1 [place] [id number] Osmolality SerPlon 0 Osmolality [Osmolality] 275 mOsm/kg Normal 275-300 [facility] Comment on above: Order Comment: Speci men Type: BLOOD SPECIMEN Performed By: #### H ISTCL #### [facility] CLIA [id number] [address] [place] [address] Osmolality Uron 07-20-2020 Osmolality (U) [Osmolality] 564 mOsm/kg Normal 50-1,200 [facility] Comment on above: Order Comment: Speci men Type: BLOOD SPECIMEN Performed By: #### 2 4321-2 #### [facility] CLIA [id number] [address] [place], [place] [id number] PROGRESSon 07-20-2020 PROGRESS HNO ID: [id number] Author: Stevo Bowens III Service: Infectious Disease Author Type: Physician Type: Progress Notes Filed: 07/20/2020 5:40 PM Note Text: PROGRESS NOTE INFECTIOUS DISEASE Active Antimicrobials (From admission, onward) Start Stop 07/19/20 1500 vancomycin iv piggyback 1.5 g in D5W 250 mL (VANCOCIN) 1.5 g, INTRAVENOUS, EVERY 8 HOURS -- 07/18/20 1300 cefepime 2 g in D5W 100 mL MB+ (MAXIPIME) 2 g, INTRAVENOUS, EVERY 8 HOURS -- 07/17/20 2100 vancomycin dosing and monitoring per pharmacy OTHER, DIRECTED -- ASSESSMENT: 1) Culture negative endocarditis in IV drug user. Leukocytosis staying elevated but patient doing well clinically Estimated Creatinine Clearance: 139.9 mL/min (based on SCr of 0.73 mg/dL). RECOMMENDATIONS: Continue vancomycin and cefepime- expect this will be his regimen for six week course of antibiotics. F/u GRICELDA Check bd-glucan to assess if culture negative sarita infection and galactamannan in case aspergillus SUBJECTIVE: Interval Events: Patient reports feeling improved. He is not having any fevers or chills TTE here showed larger vegetation than at [facility] with size of 1.5 x 0.7. GRICELDA planned. ROS No fevers or chills No nausea or diarrhea No rashes Medications:Reviewed. OBJECTIVE: Physical Exam: BP 105/64 Pulse 67 Temp 37.1 ?C (98.8 ?F) (Oral) Resp 16 Ht 175.3 cm (5' 9) Wt 73.3 kg (161 lb 9.6 oz) SpO2 95% BMI 23.86 kg/m? Physical Exam Looks comfortable Oropharynx clear no thrush Heart is RRR with 2/6 systolic murmur at LLSB Back without any spinal tenderness Lab data: WBC Date Value 07/20/2020 19.91 k/uL 07/19/2020 20.38 k/uL 07/17/2020 15.34 k/uL 02/10/2018 10.24 thou/cmm 04/23/2017 9.9 thou/cmm 04/21/2017 9.9 thou/cmm 04/17/2014 6.3 thou/cmm Platelet Count Date Value 07/20/2020 229 k/uL 07/19/2020 209 k/uL 07/17/2020 191 k/uL 02/10/2018 299 thou/cmm 04/23/2017 365 thou/cmm 04/21/2017 343 thou/cmm 04/17/2014 305 thou/cmm Creatinine (mg/dL) Date Value 07/20/2020 0.73 07/19/2020 0.75 07/17/2020 0.74 02/10/2018 0.92 04/23/2017 0.81 04/21/2017 0.88 04/17/2014 0.83 Vancomycin (ug/mL) Date Value 07/20/2020 17.4 07/19/2020 10.9 AST (U/L) Date Value 07/17/2020 27 04/23/2017 26 ALT (U/L) Date Value 07/17/2020 13 04/23/2017 30 SIGNATURE: Stevo Bowens III, MD PATIENT NAME: Khanh De La Vega DATE: July 20, 2020 TIME: 5:40 PM PAGER/CONTACT #: [phone] [facility] PROGRESS HNO ID: [id number] Author: Servando John MS Service: Hospital Medicine Author Type: ? Type: Progress Notes Filed: 07/20/2020 11:50 AM Note Text: Attestation signed by Nader Scales at 07/20/2020 2:20 PM Supervision of Medical Student Attestation Note I verified the medical student?s documentation in the medical record. Please see resident note with my attention for the day. Signature: Nader Scales DO Date: 07/20/2020 Time: 2:20 PM Pager: [phone] [facility] PROGRESS NOTE SERVICE DATE: 07/20/2020 SERVICE TIME: 8:39 AM PCP: No primary care provider on file. HPI: Mr. Khanh De La Vega is a 35 yo male with a past medical history of IVDU (last use 07/13), hepatitis C (positive antibody 11/23/19). He presented to the [facility] on 07/13/20 for chronic fatigue. While there, he had fevers to 102F, leukocytosis, and symptoms of opiate withdrawal. Blood cultures pulled on 07/13 returned negative. He had a TTE which revealed tricuspid valve vegetation 0.5x1cm and he was subsequently started on IV vancomycin and zosyn empirically for infective endocarditis. ID was consulted at [place] and they switched his antibiotics to IV vancomycin and IV cefepime. In addition, he was given a buprenorphine taper and tested negative for HIV and Hep B. He continued to spike fevers. Repeated blood cultures were drawn on 07/15 and are still pending. He was transferred to [facility] on 07/17 for evaluation by cardiac surgery for possible surgical intervention for his infective endocarditis INTERVAL HISTORY: No acute events overnight. ID following: all blood cultures (from [place] 07/15, 07/16, from [facility] 07/17) negative until now. Patient continued on IV vancomycin and IV cefepime. Pharmacy assisting with vancomycin dosing: current dose 1.5 g q8h IV, latest level in the therapeutic range. Will continue current dose per pharmacy recommendation. Cardiac surgery following: opting for medical management of endocarditis at this time. TTE is planned for today AM. TTE revealed 1.5x0.8 cm vegetation, will likely follow with GRICELDA per cardiac surgery. Upon exam, patient complains of diffuse lower back pain which he attributes to withdrawals. He states the pain occasionally is present in his legs and arms, for the same reason. Pain management is following, and he is on scheduled methadone. He also has abdominal pain which he attributes to constipation. He had small BM yesterday, but has not had any since. He is not passing gas. Per patient report, due to his abdominal pain and constipation, he has had very limited oral intake of solids or liquids. He has had no fevers. ROS otherwise negative for nausea, vomiting, diarrhea, shortness of breath, chest pain, dysuria, headache, dizziness/lightheadedn ess. MEDICATIONS: Current Facility-Administered Medications Medication Dose Route Frequency - vancomycin dosing and monitoring per pharmacy OTHER As Directed - enoxaparin 40 mg injection (LOVENOX) 40 mg SUBCUTANEOUS DAILY - ondansetron 4 mg tab(s) (ZOFRAN) 4 mg ORAL q 6 H PRN Or - ondansetron (PF) 4 mg injection (ZOFRAN) 4 mg INTRAVENOUS q 6 H PRN - acetaminophen 650 mg tab(s) (TYLENOL) 650 mg ORAL q 6 H PRN - hydrOXYzine HCl 50 mg tab(s) (ATARAX) 50 mg ORAL q 6 H PRN - methadone 5 mg tab(s) (DOLOPHINE) 5 mg ORAL q 4 H PRN - nicotine 14 mg/24 hr 1 Patch (NICODERM) 1 Patch TRANSDERMAL DAILY And - nicotine -- REMOVE patch OTHER DAILY And - nicotine - verify patch OTHER q 8 H - cefepime 2 g in D5W 100 mL MB+ (MAXIPIME) 2 g INTRAVENOUS q 8 HR - perflutren lipid microspheres 1.1 mg/mL 1.3 mL injection (DEFINITY) 1.3 mL INTRAVENOUS DIRECTED PRN - vancomycin iv piggyback 1.5 g in D5W 250 mL (VANCOCIN) 1.5 g INTRAVENOUS q 8 H - senna-docusate 8.6-50 mg 2 tablet (SENNA-S) 2 tablet ORAL BID - polyethylene glycol 3350 17 g packet (MIRALAX, GLYCOLAX) 17 g ORAL DAILY - methadone 10 mg tab(s) (DOLOPHINE) 10 mg ORAL BID HOME MEDICATIONS: No prescriptions on file. PHYSICAL EXAM: 07/19/20 2000 07/20/20 0000 07/20/20 0500 07/20/20 0837 BP: 106/64 110/63 91/55 Pulse: 79 92 86 Resp: 18 18 16 Temp: 37.4 ?C (99.3 ?F) 37.7 ?C (99.9 ?F) 36.5 ?C (97.7 ?F) TempSrc: Oral Oral Axillary Oral SpO2: 97% 94% 95% Weight: Height: INTAKE/OUTPUT No intake or output data in the 24 hours ending 07/20/20 0839 Physical Exam Constitutional: He is oriented to person, place, and time and well-developed, well-nourished, and in no distress. HENT: Head: Normocephalic and atraumatic. Cardiovascular: Normal rate, regular rhythm, normal heart sounds and intact distal pulses. Exam reveals no gallop and no friction rub. No murmur heard. Pulmonary/Chest: Effort normal and breath sounds normal. No respiratory distress. He has no wheezes. He has no rales. Abdominal: Soft. Bowel sounds are normal. He exhibits no distension. There is abdominal tenderness (diffuse, nonspecific to deep palpation in all quadrants). There is no rebound. Musculoskeletal: General: No tenderness or edema. Neurological: He is alert and oriented to person, place, and time. Skin: Skin is warm and dry. No rash noted. No erythema. LAB DATA: Recent Labs 07/20/20 0554 07/19/20 0600 07/17/20 2216 WBC 19.91* 20.38* 15.34* HB 10.1* 10.5* 10.8* HCT 30.9* 31.4* 32.2* PLT 229 209 191 NA 126* 128* 130* K 4.2 4.3 4.3 CHLOR 92* 96* 93* CO2 28 25 26 CREAT 0.73 0.75 0.74 BUN 16 15 10 GLUC 106* 102* 111* TPROT -- -- 7.9 MG -- -- 1.8 CA 8.5 8.8 8.6 ALKPHOS -- -- 120* TBILI -- -- 0.3 AST -- -- 27 ALT -- -- 13 ASSESSMENT AND PLAN: Active Hospital Problems Diagnosis - Infective endocarditis - Mild protein-calorie malnutrition (HCC) - Hyponatremia - IVDU (intravenous drug user) - Fever - Leucocytosis - Hepatitis C antibody positive in blood - Nicotine use disorder, F17.2 - Methamphetamine dependence (HCC) - Cannabis dependence (HCC) PLAN FOR THE DAY 1. 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 2. IVDU, polysubstance abuse - Received buprenorphine taper at OSH - Pain management following - Currently receiving tylenol ?650 mg PO for pain q6h PRN, methadone 10 mg PO BID, methadone 5 mg PO q4h PRN - counseled to quit ? 3. Constipation - Hx of opioid use - Currently receiving Senna-docusate 8.6-50 mg 2 tabs PO BID, Miralax 17 g PO daily - Dulcolax 10 mg suppository ordered daily PRN - Prochlorperazine 10 mg PO q6h PRN for nausea, monitor QTc ? 4. Anxiety - Currently receiving hydroxyzine 50 mg PO q6h PRN ? 5. Nicotine use - placed on 14 mg patch daily - counseled to quit ? 6. Normocytic anemia - last Hgb 10.1 (down from 10.5) - likely 2/2 to infective endocarditis - currently asymptomatic, continue to monitor ? 7. Hyponatremia - last 126 (down from 128) - Started on IV NS 75 mL/hr, repeat sodium ordered, consider urine sodium - currently asymptomatic - continue to monitor DVT Prophylaxis: Lovenox 40 GI Prophylaxis: none Telemetry: none Disposition: PT/OT suggest home, patient homeless, care management onboard, patient agreeable to AoD programs at [facility]. SIGNATURE: Servando John MS PATIENT NAME: Khanh De La Vega DATE: July 20, 2020 TIME: 8:39 AM Pager: Maria Esther [facility] PROGRESS HNO ID: [id number] Author: Marilyn Graham Service: Pain Management Author Type: Physician Type: Progress Notes Filed: 07/20/2020 8:33 AM Note Text: Name: KHANH DE LA VEGA Age: [age] year old PAIN MANAGEMENT: Back pain, TV endocarditis, IVDA; opiate dependent Pain Description: Complains of entire back and all his muscles hurting. Does get pain relief with methadone dose Interval HPI: Stable overnight. Afebrile. Medical treatment for now per CTS Followed by ID and CTS; on vancomycin and cefepime. Repeat blood cultures pending. Echo images from [facility] pending 24H Comfort Meds: Tylenol 650 mg x0 Methadone 5 mg x 4 Subjective HPI: 35-year-old male with history of active IVDA (heroin, fentanyl, methamphetamine-daily times years), hepatitis C presented to [facility] 07/13 with worsening fatigue, fevers. Patient was noted to have leukocytosis; urine drug screen positive for opiates and amphetamines. TTE demonstrated 0.5 x 1 cm tricuspid valve vegetation. Patient was started on IV vancomycin and Zosyn. He was briefly treated with Suboxone for opiate withdrawal. He was transferred to [facility] 07/17 for evaluation by CTS for possible surgery. Patient states he last used IV heroin and methamphetamine on 07/13. He was intolerant of Suboxone in the past due to GI upset. He had been on it for about 3 months 5 years ago. He has not been on methadone maintenance. He complains of back pain as well as some mild withdrawal symptoms. OARRS Review: 1 prescription [place] 5/325 #10 Current Facility-Administered Medications Medication Dose Route Frequency Provider Last Rate Last Dose - methadone 10 mg tab(s) (DOLOPHINE) 10 mg ORAL BID Marilyn K Scantling - vancomycin iv piggyback 1.5 g in D5W 250 mL (VANCOCIN) 1.5 g INTRAVENOUS q 8 H Fabienne Dorado (Postal Service Mail Processor) 125 mL/hr at 07/20/20 0634 1.5 g at 07/20/20 0634 - senna-docusate 8.6-50 mg 2 tablet (SENNA-S) 2 tablet ORAL BID Amarjit (Res) MD Tere - polyethylene glycol 3350 17 g packet (MIRALAX, GLYCOLAX) 17 g ORAL DAILY Amarjit (Res) MD Tere - methadone 5 mg tab(s) (DOLOPHINE) 5 mg ORAL q 4 H PRN Marilyn K Scantling 5 mg at 07/20/20 0058 - nicotine 14 mg/24 hr 1 Patch (NICODERM) 1 Patch TRANSDERMAL DAILY Amarjit (Res) MD Tere 1 Patch at 07/19/20 0817 And - nicotine -- REMOVE patch OTHER DAILY Amarjit (Res) MD Tere And - nicotine - verify patch OTHER q 8 H Amarjit (Res) MD Tere - cefepime 2 g in D5W 100 mL MB+ (MAXIPIME) 2 g INTRAVENOUS q 8 HR Stevo Posada Dumford III 200 mL/hr at 07/20/20 0514 2 g at 07/20/20 0514 - perflutren lipid microspheres 1.1 mg/mL 1.3 mL injection (DEFINITY) 1.3 mL INTRAVENOUS DIRECTED PRN Stevo Posada Denford III - vancomycin dosing and monitoring per pharmacy OTHER As Directed Minerva (Res) Rath - enoxaparin 40 mg injection (LOVENOX) 40 mg SUBCUTANEOUS DAILY Minerva (Res) Rath - ondansetron 4 mg tab(s) (ZOFRAN) 4 mg ORAL q 6 H PRN Minerva (Res) Rath Or - ondansetron (PF) 4 mg injection (ZOFRAN) 4 mg INTRAVENOUS q 6 H PRN Minerva (Res) Rath 4 mg at 07/17/20 2231 - acetaminophen 650 mg tab(s) (TYLENOL) 650 mg ORAL q 6 H PRN Minerva (Res) Rath 650 mg at 07/18/20 1637 - hydrOXYzine HCl 50 mg tab(s) (ATARAX) 50 mg ORAL q 6 H PRN Minerva (Res) Rath No medications prior to admission. Social History Tobacco Use - Smoking status: Current Every Day Smoker Packs/day: 1.00 Types: Cigarettes - Smokeless tobacco: Never Used Substance Use Topics - Alcohol use: Yes Comment: socially - Drug use: Yes Types: Crystal Meth, Marijuana, Heroin, Amphetamines Comment: pt does inject No family history on file. PAST SURGICAL HISTORY Procedure Laterality Date - ORTHOPEDICS SURGERY HX Right pins placed in right hand ROS: All of the following reviewed and negative except as noted below: Significant for HPI GENERAL: no fever, chills, sweats, weight loss, fatigue, generalized weakness HEENT: no headache, vision changes, eye discomfort, hearing change, ear discomfort, sinus pain, nasal discharge or congestion, oral lesions, soreness, dental problem NECK: no adenopathy, discomfort, change in ROM CHEST: no shortness of breath, dyspnea on exertion, wheezing, cough, sputum production or chest pain HEART: no chest pain, palpitations, syncope ABDOMEN: no nausea, vomiting, constipation, diarrhea, abdominal pain : no dysuria, urgency, frequency, history of stones, incontinence NEURO: no confusion or alteration in consciousness, slurred speech, seizure, focal weakness EXTREMITIES: no new pain, edema, change in ROM HEME: no new adenopathy, bruises, petechiae PSYCH: no depression, anxiety, agitation PAIN PSYCHIATRIC EXAM: GENERAL: alert, oriented to person, place, time JUDGMENT AND INSIGHT: intact APPEARANCE: neatly groomed DEMEANOR: coooperative, not hostile, mistrustful, preoccupied, or demanding ACTIVITY: normal, not hyperactive or hypoactive, no tremors, tics EYE CONTACT: normal SPEECH: normal, rate, volume, articulation, coherence, spontaneity MOOD: normal, without overt sadness, grief, anxiety, appropriate to situation IDEATION: Deferred MEMORY: intact PHYSICAL EXAMINATION: GENERAL: well nourished and developed; no acute distress; alert and oriented x 3; intact judgement and insight HEENT: no evidence of trauma; cranial nerves intact; eyes clear EOMI; no hearing deficits apparent; nasal passages unremarkable; throat and mucous membranes clear NECK: supple without lymphadenopathy; no JVD; no thyromegaly CHEST: clear bilaterally to auscultation; normal chest movement; no rales or rhonchi HEART: regular rate and rhythm, 2/6 systolic murmur ABDOMEN: soft; nondistended; bowel sounds present; no hepatomegaly; no splenomegaly; no tenderness EXTREMITIES: no evidence of clubbing; no cyanosis; no deformity; no joint effusion; no edema NEURO: cranial nerves intact; no focal deficits; no confusion; no tremor; sensorium normal SKIN: no rash; no skin breakdown; no decubitus lesions HEME: no bruising; no adenopathy PSYCH: no evidence of depression; no anxiety; no agitation; no apparent hallucinations BP 91/55 Pulse 86 Temp 36.5 ?C (97.7 ?F) (Axillary) Resp 16 Ht 175.3 cm (5' 9) Wt 73.3 kg (161 lb 9.6 oz) SpO2 95% BMI 23.86 kg/m? BMI 23.86 kg/(m2) ABNORMAL/NEW FINDINGS: NONE RADIOLOGY/DIAGNOSTICS: LABORATORY: CBC: Recent Labs 07/20/20 0554 WBC 19.91* RBC 3.69* HB 10.1* HCT 30.9* PLT 229 MCV 83.7 MCH 27.4 MPV 9.9 CMP: Recent Labs 07/20/20 0554 NA 126* K 4.2 CHLOR 92* CO2 28 BUN 16 CREAT 0.73 GLUC 106* CA 8.5 ANION 6* Heme: No results for input(s): RETICP, ABSRETIC, LD, YEIMY, FE, TIBC, TRANSFERSAT in the last 24 hours. 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 Patient on IV vancomycin and cefepime. Repeat blood cultures pending. Images from ECHO at [facility] pending CTS and ID following; medical management for now Per chart, patient on brief Suboxone taper at [facility] for opiate withdrawal Patient complained of back pain yesterday?better today; may need further imaging to rule out discitis or osteomyelitis Schedule methadone 10 mg twice daily Methadone 5 mg every 4 hours as needed pain Patient not interested in Suboxone; intolerant of it in the past due to GI upset Disposition pending Marilyn Graham MD ADDENDUM: Portions of this note were copied so as to provide important historical information essential in contributing to medical decision making today. Normal [facility] PROGRESS HNO ID: [id number] Author: Mac (Eliseo Negron Service: Hospital Medicine Author Type: Resident Type: Progress Notes Filed: 07/20/2020 1:26 PM Note Text: Attestation signed by Nader Scales at 07/20/2020 2:22 PM Attending Note I personally saw and examined the patient on 07/20/20. I reviewed the resident's note. I agree with the resident's assessment and plan unless otherwise noted. Signature: Nader Scales, DO Date: 07/20/2020 Time: 2:21 PM Pager: [phone] HOUSE MEDICINE SERVICE PROGRESS NOTE SERVICE DATE: July 20, 2020 SERVICE TIME: 1:01 PM NIGHT AND WEEKEND COVERAGE: From 6 AM to 5 PM: You may reach the House Medicine sales and marketing intern currently assigned to this patient by finding their pager number on the treatment team (they will be assigned as the sales and marketing intern or resident). It is the last four digits in the phone number beginning with ([phone]). We encourage the use of Doximity Secure Chat. PCP: No primary care provider on file. Admitting Attending: Elijah Hill SUBJECTIVE Chief Complaint: Fever/ fatigue HPI: Patient is a 35 yr male who is a chronic IVDU since 2009 and Hep C positive ( antibody positive on 11/23/19), presented to the [facility] for chronic fatigue on 07/13/20. He was found to have opiate withdrawal symptoms and had spiking fevers maximum temp being 102 F, raised WBC and negative blood cultures (07/15). His urine tox was positive for opiates, amphetamines and opiates. 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 ID consultation was done and his zosyn was switched to cefepime. He was treated for b with buprenorphine which was tapered. He was found to be negative for HIV and Hep B and his WBCs started trending down, however he still spiked fevers. Repeat blood cultures on 07/15 were sent which is still pending. He was transferred to [facility] for CT surgery evaluation for possible surgery for his IE. During my encounter, patient was febrile 102 F. Complaints of global pain. He admitted to intermittent abdominal discomfort and said he had been constipated for 3 days. He denied any chest pain, palpitations, lightheadedness, or bilateral LL swelling. He said his last IVDU was on Akira morning (07/13/20) before he presented to the hospital. He denied the use of leg veins for the same. Of note, he was covid positive on 06/29/20 however he was tested negative during his hospital admission in [place]. Interval events: - NAEON - Patient states he doesn't feel too well secondary to nausea and constipation. - Had a bowel movement yesterday. Will continue bowel regimen - Pt continue to endorse low back pain. - Echo shows 1.5 x .8 cm vegetation. Recommend GRICELDA by radiologist (CT surgery agrees). GRICELDA ordered - Pain management per PM team. On methadone. - Picc line ordered. PAST MEDICAL HISTORY Diagnosis Date - Anxiety - Depression - Paranoid schizophrenia (HCC) PAST SURGICAL HISTORY Procedure Laterality Date - ORTHOPEDICS SURGERY HX Right pins placed in right hand No family history on file. Social History Tobacco Use - Smoking status: Current Every Day Smoker Packs/day: 1.00 Types: Cigarettes - Smokeless tobacco: Never Used Substance Use Topics - Alcohol use: Yes Comment: socially - Drug use: Yes Types: Crystal Meth, Marijuana, Heroin, Amphetamines Comment: pt does inject Medications: No medications prior to admission. ALLERGIES Allergen Reactions - Penicillins Swelling - Sulfa (Sulfonamide * Swelling OBJECTIVE: Vital Signs: BP 91/55 Pulse 86 Temp (Src) 97.7 (Axillary) Resp 16 Ht 5' 9 (1.75m) Wt 161 lb 9.6 oz (73.3kg) SpO2 95% BMI 23.85 kg/(m2). O2 Therapy: Room Air Physical Exam Performed: GENERAL: Alert, no distress, cooperative SKIN: Skin color, texture, turgor normal. Multiple tattoos on bilateral UL, bruises on right antecubital fossa HEAD/SINUSES: No significant findings EYES: PERRLA, EOMI EARS: External ears normal, canals clear NOSE: Nares normal. Septum midline. OROPHARYNX: Lips, mucosa, and tongue normal. Multiple teeth absent with soft gums. Oropharynx normal. NECK: No jugulovenous distention, No carotid bruits, Carotid pulse normal contour, Supple BACK: Back symmetric, Normal curvature, ROM normal, No CVAT. LUNGS: Lungs clear to auscultation, Good diaphragmatic excursion CARDIAC: Normal S1 and S2; no rubs, murmurs, or gallops ABDOMEN: Abdomen soft, Mildly tender to palpation epigastric, BS normal, No masses or organomegaly EXTREMITIES: Extremities normal, no deformities, edema, clubbing or skin discoloration. Good capillary refill., No ulcers NEURO: Gait normal. Reflexes normal and symmetric. Sensation grossly intact, Cranial nerves II-XII intact PULSES: 2+ radial, 2+ carotid Lines, Drains, and Airways Line Peripheral 07/17/201999 Assessment Short Left Forearm 18 Gauge 2 days Reviewed lines and needs to be continued: REASONS: Intravenous antibiotics Data: There is no new data today. WBC Date Value 07/17/2020 15.34 k/uL (H) 02/10/2018 10.24 thou/cmm (H) RBC Date Value 07/17/2020 3.91 m/uL (L) 02/10/2018 4.70 mil/cmm Hemoglobin (g/dL) Date Value 07/17/2020 10.8 (L) 04/17/2014 15.1 HGB (g/dL) Date Value 02/10/2018 13.6 (L) Hematocrit (%) Date Value 07/17/2020 32.2 (L) 02/10/2018 40.9 MCV Date Value 07/17/2020 82.4 fL 02/10/2018 87.0 fl MCH (pg) Date Value 07/17/2020 27.6 02/10/2018 28.9 MCHC Date Value 07/17/2020 33.5 g/dL 02/10/2018 33.3 % RDW-CV (%) Date Value 07/17/2020 13.8 Platelet Count Date Value 07/17/2020 191 k/uL 02/10/2018 299 thou/cmm MPV Date Value 07/17/2020 9.6 fL 02/10/2018 10.4 fl Glucose (mg/dL) Date Value 07/17/2020 111 (H) 02/10/2018 98 BUN (mg/dL) Date Value 07/17/2020 10 02/10/2018 16 Creatinine (mg/dL) Date Value 07/17/2020 0.74 02/10/2018 0.92 Sodium Date Value 07/17/2020 130 mmol/L (L) 02/10/2018 138 mEq/L Potassium Date Value 07/17/2020 4.3 mmol/L 02/10/2018 3.4 mEq/L (L) Chloride Date Value 07/17/2020 93 mmol/L (L) 02/10/2018 110 mEq/L (H) CO2 Date Value 07/17/2020 26 mmol/L 02/10/2018 24 mEq/L Protein, Total (g/dL) Date Value 07/17/2020 7.9 04/23/2017 7.5 Albumin (g/dL) Date Value 04/23/2017 3.5 Calcium (mg/dL) Date Value 02/10/2018 8.8 Calcium, Total (mg/dL) Date Value 07/17/2020 8.6 Alkaline Phosphatase (U/L) Date Value 07/17/2020 120 (H) 04/23/2017 85 Bilirubin, Total (mg/dL) Date Value 07/17/2020 0.3 04/23/2017 0.4 AST (U/L) Date Value 07/17/2020 27 04/23/2017 26 ALT (U/L) Date Value 07/17/2020 13 04/23/2017 30 URINALYSIS Specific [place], Ur Date Value Ref Range Status 02/10/2018 1.028 1.005 - 1.030 Final Glucose, Urine Date Value Ref Range Status 02/10/2018 NEGATIVE Negative mg/dL Final Bilirubin, Urine Date Value Ref Range Status 02/10/2018 see below (A) Negative Final Comment: Detected (Unable to confirm). Ketones, Urine Date Value Ref Range Status 02/10/2018 TRACE (A) Negative mg/dL Final Protein, Urine Date Value Ref Range Status 02/10/2018 TRACE (A) Negative mg/dL Final Urobilinogen, Urine Date Value Ref Range Status 02/10/2018 1.0 0.0 - 1.0 EU/dL Final WBC, Urine Date Value Ref Range Status 02/10/2018 1.0 0.0 - 5.0 /hpf Final Assessment/Plan Problem List Infective endocarditis Methamphetamine dependence (HCC) Cannabis dependence (HCC) Nicotine use disorder, F17.2 IVDU (intravenous drug user) Fever Leucocytosis Hepatitis C antibody positive in blood Mild protein-calorie malnutrition (HCC) Hyponatremia Active Problems: 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 Per ID - CT surgery consult for possible surgery. Echo repeat shows EF 59% with vegetation on 1.5 x 0.8cm on Tricuspid valve. GRICELDA recommended. - CT surgery agrees with GRICELDA. GRICELDA ordered - Blood cultures repeated on 07/17, NGTD 1 - ID consulted, appreciate recommendations - CT surgery consulted, appreciate recommendations. - CT chest ordered by tax credit leasing consultant. - Trend WBCs 07/19/20 at 20 from 15 - Monitor Hemodynamics. Stable -SW: possible SNIF considering need for intermediate abx. Referral sent -Picc line ordered for anticipatory use of abx x 6 weeks. Chronic IVDU / Polysubstance abuse: - Was on buprenorphine taper in the outside hospital - Placed on tylenol for mild pain - DC Oxycodone IR - DC Morphine - Pain management consultation done. Started Methadone. - Hydroxyzine q6h Prn for anxiety - Counseled on dangers and consequence of this behavior. Constipation -Likely 2/2 to chronic opioid use. -dc morphine and oxycodone -Started on senna docusate and miralax. -Repeat suppository. Hypotonic Hyponatremia. Euvolemic state - 130 on admission. Asymptomatic - Continue to monitor. - today at 126 from 128 - Urine / serum osmolality at 564/275 . Urine Na at 64. Likely 2/2 SIADH - fluid restriction. Normocytic anemia in the setting of Endocarditis -Hgb 10.8 -MCV 82.4 - Monitor labs and symptoms Nicotine use disorder - Placed on Nicotine patch 14mg - counseled to quit Disposition - Patient is homeless - OT/PT eval : dispo: Home - family independence case manager consult Medication and Non-Pharmacologic VTE Prophylaxis/Anticoagul ants Anticoagulant AND Antiplatelet Medications (From admission, onward) Start Dose Route Frequency Ordered Stop 07/17/202099 enoxaparin 40 mg injection (LOVENOX) (Medical Risk Categories) 40 mg SUBCUTANEOUS DAILY 07/17/202044 -- 07/17/202044 pneumatic compression stockings (ct,mi) 07/17/202044 activity - mobilize patient ([place], [place]) VTE Prophylaxis: VTE prophylaxis appropriate GI Prophylaxis: Not indicated Telemetry: Not indicated Disposition: To be determined Code Status: Not on file Plan of care discussed with: Provider, RN, Patient SIGNATURE: Mac negron DO PATIENT NAME: Khanh De La Vega DATE: July 19, 2020 TIME: 10:00 AM Normal [facility] Sodium ?Tm Ur-sCncon 020 Sodium Unsp time (U) [Moles/Vol] 64 mmol/L Normal 14-216 [facility] Comment on above: Order Comment: Speci men Type: URINE SPECIMEN Performed By: #### 9 [id number] #### [facility] CLIA [id number] [address] [place] [address] Sodium SerPl-sCncon 07-20-20 20 Sodium [Moles/Vol] 130 mmol/L Low 136-144 [facility] Comment on above: Order Comment: Speci men Type: BLOOD SPECIMEN Performed By: #### 2 4321-2 #### [facility] CLIA [id number] [address] [place] [address] VANCOMYCINon 07-20-2020 Vancomycin [Mass/Vol] 17.4 ug/mL Normal 10.0-20.0 [facility] Comment on above: Order Comment: Speci men Type: BLOOD SPECIMEN Result Comment: Refe rence ranges and high/low indicator flags are provided as general guidelines only. The treating physician must determine appropriate target levels/dosing based on the specific clinical situation. Performed By: #### H ISTCL #### [facility] CLIA [id number] [address] [place] [address] ALLIED HEALTHon 07-19-2020 ALLIED HEALTH HNO ID: [id number] Author: Anegla Sherman (Rt) Service: Radiology Author Type: Steam Cleaning Machine Operator Type: Allied Health Filed: 07/19/2020 12:25 PM Note Text: Radiology Service Progress Note PATIENT NAME: Khanh De La Vega DATE OF SERVICE: July 19, 2020 TIME: 12:24 PM PATIENT IDENTITY VERIFICATION COMPLETED USING TWO (2) IDENTIFIERS: Name and Date of confirmed by patient verbally and Name and Date of confirmed by identification band. FALL SCREENING: Has the patient had 2 falls in the last year or 1 fall with injury or currently using an Ambulatory Assistive Device (Walker, Cane, Wheelchair, Crutches, etc.)? No PATIENT GENDER DATA: Male PATIENT RELEVANT IMPLANT DATA REVIEWED: Not Applicable RADIOLOGY DEPARTMENT: CT; Exam(s) Completed: Chest PERIPHERAL IV DATA: Not applicable SIGNED BY: RT Whit July 19, 2020 12:24 PM Normal [facility] Bas Metab 2000 Pnl SerPlon 1 Anion gap [Moles/Vol] 7 mmol/L Low 9-18 [facility] Comment on above: Order Comment: Speci men Type: BLOOD SPECIMEN Performed By: #### H ISTCL #### [facility] CLIA [id number] [address] [place] [address] Calcium [Mass/Vol] 8.8 mg/dL Normal 8.5-10.2 [facility] Comment on above: Order Comment: Speci men Type: BLOOD SPECIMEN Performed By: #### H ISTCL #### [facility] CLIA [id number] [address] [place] [address] Chloride [Moles/Vol] 96 mmol/L Low 97-105 [facility] Comment on above: Order Comment: Speci men Type: BLOOD SPECIMEN Performed By: #### H ISTCL #### [facility] CLIA [id number] [address] [place] [address] CO2 [Moles/Vol] 25 mmol/L Normal 22-30 [facility] Comment on above: Order Comment: Speci men Type: BLOOD SPECIMEN Performed By: #### H ISTCL #### [facility] CLIA [id number] [address] [place] [address] Creatinine [Mass/Vol] 0.75 mg/dL Normal 0.73-1.22 [facility] Comment on above: Order Comment: Speci men Type: BLOOD SPECIMEN Performed By: #### H ISTCL #### [facility] CLIA [id number] [address] [place] [address] GFR/1.73 sq M.predicted MDRD (S/P/Bld) [Vol rate/Area] mL/min/{1.73_m2} Normal [facility] Comment on above: Order Comment: Speci men Type: BLOOD SPECIMEN Result Comment: >60 eGFR (Estimated GFR) Units of measure: mL/min/1.73 meters squared eGFR is derived from the reexpressed MDRD Study equation using the following parameters: serum creatinine, age, gender and race. The creatinine assay has been calibrated to be traceable to IDMS. An eGFR <60 mL/min/1.73m2 for >3 months is consistent with chronic kidney disease. Refer to KDOQI guidelines for clinical interpretation. In patients with unstable renal function, e.g. those with acute kidney injury, the eGFR may not accurately reflect actual GFR. Performed By: #### H ISTCL #### [facility] CLIA [id number] [address] [place] [address] Glucose [Mass/Vol] 102 mg/dL High 74-99 [facility] Comment on above: Order Comment: Speci men Type: BLOOD SPECIMEN Result Comment: The [place] Diabetes Association (ADA) provides guidance for cutoff values for fasting glucose and random glucose. The ADA defines fasting as no caloric intake for at least 8 hours. Fasting plasma glucose results between 100 to 125 mg/dL indicate increased risk for diabetes (prediabetes). Fasting plasma glucose results greater than or equal to 126 mg/dL meet the criteria for diagnosis of diabetes. In the absence of unequivocal hyperglycemia, results should be confirmed by repeat testing. In a patient with classic symptoms of hyperglycemia or hyperglycemic crisis, random plasma glucose results greater than or equal to 200 mg/dL meet the criteria for diagnosis of diabetes. Reference: Standards of Medical Care in Diabetes 2016, Indian Diabetes Association. Diabetes Care. 2016.39(Suppl 1). Performed By: #### H ISTCL #### [facility] CLIA [id number] [address] [place] [address] Potassium [Moles/Vol] 4.3 mmol/L Normal 3.7-5.1 [facility] Comment on above: Order Comment: Speci men Type: BLOOD SPECIMEN Performed By: #### H ISTCL #### [facility] CLIA [id number] [address] [place] [address] Sodium [Moles/Vol] 128 mmol/L Low 136-144 [facility] Comment on above: Order Comment: Speci men Type: BLOOD SPECIMEN Performed By: #### H ISTCL #### [facility] CLIA [id number] [address] [place] [address] Urea nitrogen [Mass/Vol] 15 mg/dL Normal 9-24 [facility] Comment on above: Order Comment: Speci men Type: BLOOD SPECIMEN Performed By: #### H ISTCL #### [facility] CLIA [id number] [address] [place] [address] CASE MGT INIT PÉREZon 2019 CASE MGT INIT PÉREZ HNO ID: [id number] Author: Jennifer Grace (Sw) Service: Social Work Author Type: Product Transfer Pumper Type: Care Mgt Initial Assessment Filed: 07/19/2020 10:00 AM Note Text: CARE MANAGEMENT: ASSESSMENT AND DISCHARGE PLAN SERVICE DATE: July 19, 2020 SERVICE TIME: ,now PRIMARY CARE PHYSICIAN: No primary care provider on file. Phone: None ADMISSION STATUS: Inpatient Needs Prior to Discharge: To Be Determined;Accepting Facility;Discharge Transportation MEDICAL: [facility] [employer] MEDICAID Patient/[place] Operator Stated Goals: To have reduction in pain;To have reduction in symptoms Health Insurance: ([facility] Medicaid) Last Discharge Date: 11/23/19 Is this Within the Past 30 days? Last discharge within 30 days: No Advance Directive: Current Advance Directive: None Veneer Measurer Attempted to Assist with AD Completion: Yes Action: Patient Unwilling Health Literacy Baseline Mental Status Prior to this Illness what was the patient's Baseline Mental Status?: Alert AND Oriented Prior to this illness, has anyone described the patient having any of the following behaviors?: Not Applicable Relationship of the informant to the patient:: Self Functional Status: Independent Does Patient Currently Receive Any Community Services or Home Care?: None Equipment Prior to Admission: None Has the Patient Been in a Assisted Facility in the Past 30 days?: No SOCIAL: Living Arrangements: Home Lives With: Alone Financial Resources: Unemployed Primary Contact: Extended Emergency Contact Information Primary Emergency Contact: Latricia White Relation: Aunt Supportive Patient Contact:: Yes Contact Resources: Family Family Name/Phone: aunt Latricia White Social Needs Food insecurity Worry: Not on file Inability: Never true Resources Needed: No Social Needs Financial resource strain: Not hard at all Social Needs Transportation needs Medical: No Non-medical: No Caregiver AssessmentCaregiver is ready, willing and able to meet the patient's needs as recommended by the inter-professional team:: No Caregiver needed Does the patient have an acute stroke diagnosis, or has the patient had a stroke during this admission?: No Patient's perception of need for this admission: Are you interested in bedside delivery of your medications? Yes ASSESSMENT AND PLAN: Medical Needs: Medical Needs: Two or more chronic diseases Psychosocial Needs: Psychosocial Needs: Chemical Dependency Drug of Choice: IV heroin Years of Use: 10 Treatment: Chemical Dependency program FREEDOM OF CHOICE EXPLAINED: [place] of Choice Given: (disposition unknown at this time) POTENTIAL TRANSITION PLANS Met with pt who presents as lethargic.Lives alone in [place]. Has no income and is trying to get on disability. 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 Pt states he has been using IV heroin twice a day since 2009. Went to residential AoD rehab at [facility] in 2011 but did n ot complete program. Has had no rehab since. Discussed dangers of continued use including . Pt seemed receptive to getting back into rehab. Discussed SNF if needs long-term IV antibiotics. Discussed SNFs which have AoD programs they contract with. Pt agreeable. Will send SNF referrals to [facility] in [place] and [facility] in event pt needs SNF. Await ID plan. SIGNATURE: MARIS Mariee PATIENT NAME: Khanh De La Vega DATE: July 19, 2020 TIME: 9:48 AM PAGER/CONTACT #: [phone] Normal [facility] CBC (hemogram) Bld Autoon Erythrocyte distribution width (RBC) [Ratio] 13.9 % Normal 11.5-15.0 [facility] Comment on above: Order Comment: Speci men Type: BLOOD SPECIMEN Performed By: #### V ANCRA #### [facility] CLIA [id number] [address] [place] [address] Hematocrit (Bld) [Volume fraction] 31.4 % Low 39.0-51.0 [facility] Comment on above: Order Comment: Speci men Type: BLOOD SPECIMEN Performed By: #### V ANCRA #### [facility] CLIA [id number] [address] [place] [address] Hemoglobin (Bld) [Mass/Vol] 10.5 g/dL Low 13.0-17.0 [facility] Comment on above: Order Comment: Speci men Type: BLOOD SPECIMEN Performed By: #### V ANCRA #### [facility] CLIA [id number] [address] [place] [address] MCH (RBC) [Entitic mass] 27.4 pg Normal 26.0-34.0 [facility] Comment on above: Order Comment: Speci men Type: BLOOD SPECIMEN Performed By: #### V ANCRA #### [facility] CLIA [id number] [address] [place] [address] MCHC (RBC) [Mass/Vol] 33.4 g/dL Normal 30.5-36.0 [facility] Comment on above: Order Comment: Speci men Type: BLOOD SPECIMEN Performed By: #### V ANCRA #### [facility] CLIA [id number] [address] [place] [address] MCV (RBC) [Entitic vol] 82.0 fL Normal 80.0-100.0 [facility] Comment on above: Order Comment: Speci men Type: BLOOD SPECIMEN Performed By: #### V ANCRA #### [facility] CLIA [id number] [address] [place] [address] Nucleated RBC (Bld) [#/Vol] 10*3/uL Normal <0.01 [facility] Comment on above: Order Comment: Speci men Type: BLOOD SPECIMEN Performed By: #### V ANCRA #### [facility] CLIA [id number] [address] [place] [address] Platelet mean volume (Bld) [Entitic vol] 9.3 fL Normal 9.0-12.7 [facility] Comment on above: Order Comment: Speci men Type: BLOOD SPECIMEN Performed By: #### V ANCRA #### [facility] CLIA [id number] [address] [place] [address] Platelets (Bld) [#/Vol] 209 10*3/uL Normal 150-400 [facility] Comment on above: Order Comment: Speci men Type: BLOOD SPECIMEN Performed By: #### V ANCRA #### [facility] CLIA [id number] [address] [place] [address] RBC (Bld) [#/Vol] 3.83 10*6/uL Low 4.20-6.00 [facility] Comment on above: Order Comment: Speci men Type: BLOOD SPECIMEN Performed By: #### V ANCRA #### [facility] CLIA [id number] [address] [place] [address] WBC (Bld) [#/Vol] 20.38 10*3/uL High 3.70-11.00 [facility] Comment on above: Order Comment: Speci men Type: BLOOD SPECIMEN Performed By: #### V ANCRA #### [facility] CLIA [id number] [address] [place] [address] CONSULT PROGon 07-19-2020 CONSULT PROG HNO ID: [id number] Author: Derick Briones Service: Cardiac Surgery Author Type: Physician Type: Consult Progress Note Filed: 07/20/2020 11:38 AM Note Text: [facility] Cardiothoracic Surgery CONSULT PROGRESS NOTE SERVICE DATE: 07/19/2020 SERVICE TIME: 4:56 PM Subjective DATE OF SURGERY: LOS: 2 HPI: Khanh De La Vega is a 35 year old male who presented to [facility] with request for medication assisted opioid withdrawal. He has been using opioids daily for several years. He reports that he tested positive for Covid 19 on 06/29 with symptoms of fevers, night sweats, body aches, sore throat and nausea. All symptoms resolved except th fevers. Repeat covid at [facility] was negative on 07/15. In the ED his WBC were elevated at 19.2, mild anemia H/H 11.4/35.6, hyponatremia 127, positive UA and urine tox screen with opiates, amphetamines, methamphetamines, cannabinoids. During this admission, he spiked a fever to 102.7F which promoted blood cultures (no growth to date x 2 07/15 and 07/16). An echo was done and concerning for tricuspid valve endocarditis (full report below.) He was transferred to [facility] for cardiac surgery evaluation of his TVE. INTERVAL EVENTS / PERTINENT ROS: Today, Mr Yolette is seen resting in bed. Re reports he is doing ok, abdominal pain and wants a BM. Objective Admission Weight: 73.3 kg (161 lb 9.6 oz) BP 98/56 Pulse 90 Temp 36.9 ?C (98.4 ?F) (Oral) Resp 18 Ht 175.3 cm (5' 9) Wt 73.3 kg (161 lb 9.6 oz) SpO2 95% BMI 23.86 kg/m? Body surface area is 1.89 meters squared. Min/Max/Average Temperature AND Blood Pressure: Temp (24hrs), Av.4 ?C (99.3 ?F), Min:36.7 ?C (98.1 ?F), Max:38.4 ?C (101.1 ?F) Systolic (24hrs), Av , Min:98 , Max:104 Diastolic (24hrs), Av, Min:55, Max:68 No intake or output data in the 24 hours ending 07/19/20 1655 TELEMETRY: normal sinus rhythm PHYSICAL EXAM: General Appearance: well developed and no distress Skin: warm and dry Lungs: clear and respiratory effort: normal Heart: S1, S2 normal and no murmur Peripheral Vascular/Arteries: pulses intact Abdomen: soft, round and non-tender Neurologic/Psychiatric : oriented to time, place and person Extremities: normal exam of the extremities and no edema Lines, Drains, and Airways Line Peripheral 07/17/201999 Assessment Short Left Forearm 18 Gauge 1 day DATA: Diagnostic tests reviewed for today's visit: Significant Lab Results: Below and increased WBC Chest CT Scan: . IMPRESSION: Linear bands of suspected atelectasis at the lung bases. No other findings in the lungs to suggest pneumonia. Recent Labs 07/19/20 0600 07/17/20 2216 RBC 3.83* 3.91* WBC 20.38* 15.34* HB 10.5* 10.8* HCT 31.4* 32.2* PLT 209 191 NA 128* 130* K 4.3 4.3 CHLOR 96* 93* CO2 25 26 BUN 15 10 CREAT 0.75 0.74 GLUC 102* 111* CA 8.8 8.6 MG -- 1.8 TPROT -- 7.9 TBILI -- 0.3 ALKPHOS -- 120* ALT -- 13 AST -- 27 ANION 7* 11 Assessment/Plan . Infective endocarditis POA: Yes Assessment AND Plan: -Culture negative x 2 at OSH 07/15 and repeated 07/16 -Reviewed with Dr Bowens and consider slow growing strep species -Echo done at [facility]. Images to be pushed and will scan and upload reports -small 0.5x1.0 cm vague mobile echodensity associated with chordae of TV, with trivial TR -Repeat echo at [facility] per Dr Bowens +CT chest was done and no evidence of Pulmonary involvement of TVE +Dr Briones recommends medical management only at this time ? Recent HCV Dx, not treated -Recommend treatment in the future ? Covid 19 Infection -Repeat test done at [facility] on 07/15 was negative Tests/Labs Ordered: 1. Chest CT Scan I spent 10 minutes in the visit, with more than 50% of the total [id number] time of the visit in counseling / coordination of care. SIGNATURE: Martín Rosas APRN.CREDIT OFFICER PATIENT NAME: Khanh De La Vega DATE: July 19, 2020 TIME: 4:55 PM PAGER/CONTACT #: [phone] [id number] Attending Note I have personally performed a face to face assessment of the patient and have reviewed the PA/NURSING SERVICES MANAGER note. My izaguirre findings include: Other additions or changes: None CT chest shows no septic pulmonary emboli or other acute pulmonary pathology. repeat echo shows: - Exam indication: Initial evaluation of infective endocarditis with positive blood cultures ? - The left ventricle is normal in size. There is no left ventricular hypertrophy. Left ventricular systolic function is normal. EF = 59 ? 5% (2D biplane) Normal left ventricular diastolic function. - The right ventricle is normal in size. Right ventricular systolic function is normal. - Suspicion of mobile echodensity attached to subvalvular apparatus of tricuspid valve measuring approximately 1.5 cm x 0.8 cm concerning for possible vegetation. Recommend GRICELDA for further evaluation. I agree with rec for GRICELDA. Signature: Derick Briones MD Date: 07/20/2020 Time: 11:36 AM Normal [facility] CONSULT PROG HNO ID: [id number] Author: Stevo M Dumford III Service: Infectious Disease Author Type: Physician Type: Consult Progress Note Filed: 07/19/2020 4:34 PM Note Text: Infectious Disease CONSULT Progress NOTE SERVICE DATE: 07/19/2020 SERVICE TIME: 11:28 AM REASON FOR CONSULT: Infective endocarditis REQUESTING PHYSICIAN: Dr. Hill ADMITTING PROVIDER: Elijah Hill Admission Date: 07/17/2020 AGE: [age] year old LOS: 2 days Subjective Overnight events Patient spiked 2 fevers overnight, denies having any sensation of fevers, denies any chills or night sweats. Denies anymore neck or back pain. Only complaint is abdominal pain secondary to constipation, had a small bowel movement this afternoon and reports feeling slightly better. Initial History of Present Illness on 07/18/2020 Khanh De La Vega is a 35 year old male with PMH of IVDU, and hepatitis c, hx of COVID19 (positive on 06/29 but repeat testing negative for COVID) who initially presented to [facility] on 07/13 with a chief complaint of weakness. Course complicated by tricuspid valve vegetation (0.5 x 1 cm) on TTE and was initially started on IV vanc and zosyn. While at [place], Infectious Disease had switched his zosyn to cefepime. Utox positive for opioids and amphetamines. He was also treated for opioid withdrawal with buprenorphine which has been tapered. HIV and hep b negative, his leuocytosis improved but he continued to spike fevers. Initial cultures on 07/15 and 07/16 are no growth to date. He was subsequently transferred to [facility] on 07/[address] surgery evaluation for infective endocarditis. On admission here he was noted to be febrile (102) and complained of diffuse pain in his neck, back and legs. Last IVDU was on the morning of 07/13. Injects heroin into his right arm. Uses tap water as his water source. Denies any sharing or licking of his needles. Has never had anything like this in the past. Reports actually feeling much better this morning. Only endorses fatigue and constipation, last bm about 3 days ago. Denies anymore neck, back or leg pain. Denies chills or night sweats. Denies any nausea, vomiting, diarrhea. Denies any headaches, vision changes, trouble swallowing, chest pain, SOB, abdominal pain, LE pain or swelling. Denies any symptoms Objective PROBLEMS: ACTIVE PROBLEM LIST Severe Episode of Recurrent Major Depressive Disorder, With Psychotic Features (Hcc) Methamphetamine Dependence (Hcc) Cannabis Dependence (Hcc) Nicotine use disorder, F17.2 Substance Induced Mood Disorder (Hcc) Substance-Induced Psychotic Disorder (Hcc) Infective Endocarditis Ivdu (Intravenous Drug User) Fever Leucocytosis Hepatitis C Antibody Positive in Blood Mild Protein-Calorie Malnutrition (Hcc) Hyponatremia PAST MEDICAL HISTORY Diagnosis Date - Anxiety - Depression - Paranoid schizophrenia (HCC) No family history on file. PAST SURGICAL HISTORY Procedure Laterality Date - ORTHOPEDICS SURGERY HX Right pins placed in right hand Social History Tobacco Use - Smoking status: Current Every Day Smoker Packs/day: 1.00 Types: Cigarettes - Smokeless tobacco: Never Used Substance Use Topics - Alcohol use: Yes Comment: socially - Drug use: Yes Types: Crystal Meth, Marijuana, Heroin, Amphetamines Comment: pt does inject VITAL SIGNS (last 24hrs min/max): Temp Av.2 ?C (100.7 ?F) Min: 36.6 ?C (97.9 ?F) Max: 39.3 ?C (102.7 ?F) Pulse Av.3 Min: 64 Max: 98 No data recorded Cuff BP Min: 110/69 Max: 115/71 Pain Level: 0 Vital signs reviewed. BP 99/68 Pulse 70 Temp (Src) 98.6 (Oral) Resp 16 Ht 5' 9 (1.75m) Wt 161 lb 9.6 oz (73.3kg) SpO2 97% BMI 23.85 kg/(m2). O2 Therapy: Room Air Temp (24hrs), Av.7 ?C (99.8 ?F), Min:36.7 ?C (98.1 ?F), Max:39.2 ?C (102.6 ?F) NET FLUID BALANCE No intake or output data in the 24 hours ending 07/19/20 1127 MEDICATIONS Current Facility-Administered Medications Medication Dose Route Frequency - vancomycin iv piggyback 1.5 g in D5W 250 mL (VANCOCIN) 1.5 g INTRAVENOUS q 8 H - polyethylene glycol 3350 17 g packet (MIRALAX, GLYCOLAX) 17 g ORAL DAILY - methadone 5 mg tab(s) (DOLOPHINE) 5 mg ORAL q 4 H PRN - nicotine 14 mg/24 hr 1 Patch (NICODERM) 1 Patch TRANSDERMAL DAILY And - nicotine -- REMOVE patch OTHER DAILY And - nicotine - verify patch OTHER q 8 H - cefepime 2 g in D5W 100 mL MB+ (MAXIPIME) 2 g INTRAVENOUS q 8 HR - perflutren lipid microspheres 1.1 mg/mL 1.3 mL injection (DEFINITY) 1.3 mL INTRAVENOUS DIRECTED PRN - vancomycin dosing and monitoring per pharmacy OTHER As Directed - enoxaparin 40 mg injection (LOVENOX) 40 mg SUBCUTANEOUS DAILY - ondansetron 4 mg tab(s) (ZOFRAN) 4 mg ORAL q 6 H PRN Or - ondansetron (PF) 4 mg injection (ZOFRAN) 4 mg INTRAVENOUS q 6 H PRN - acetaminophen 650 mg tab(s) (TYLENOL) 650 mg ORAL q 6 H PRN - hydrOXYzine HCl 50 mg tab(s) (ATARAX) 50 mg ORAL q 6 H PRN Lines, Drains, and Airways Line Peripheral 07/17/201999 Assessment Short Left Forearm 18 Gauge 1 day PHYSICAL EXAM PERFORMED: GENERAL: Alert, no distress, cooperative LUNGS: Lungs clear to auscultation CARDIAC: Normal S1 and S2; no rubs, murmurs, or gallops BACK: no spinal tenderness noted on exam ABDOMEN: Abdomen soft, non-tender, BS normal, No masses. EXTREMITIES: Right antecubital fossa track rosales noted, Extremities without edema. No embolic changes of the hands and feet NEURO: AANDO x 3, Grossly normal cognition, motor function, sensation intact Respiratory/Nursing Documentation: O2 Therapy: Room Air (07/19/20 1100) HEMODYNAMIC DATA: Reviewed DATA: Diagnostic tests reviewed for today's visit, films/specimens were personally reviewed by me: LABS: CBC: Recent Labs 07/19/20 0600 07/17/202215 WBC 20.38* 15.34* HB 10.5* 10.8* HCT 31.4* 32.2* PLT 209 191 MCV 82.0 82.4 RDWCV 13.9 13.8 COAG: No results for input(s): APTT, INR in the last 168 hours. BMP: Recent Labs 07/19/20 0600 07/17/20 2216 GLUC 102* 111* NA 128* 130* K 4.3 4.3 CHLOR 96* 93* CO2 25 26 ANION 7* 11 BUN 15 10 CREAT 0.75 0.74 CHEM: Recent Labs 07/19/20 0600 07/17/20 2216 TPROT -- 7.9 CA 8.8 8.6 MG -- 1.8 HEPATIC: Recent Labs 07/17/202215 ALKPHOS 120* ALT 13 AST 27 TBILI 0.3 URINALYSIS:No results for input(s): PH, SPGR, UGLUC, UBILI, UKET, UHB, UPROT, UROBIL, UWBC, SSA in the last 168 hours. Invalid input(s): NITR CARDIAC: No results for input(s): CKTEST, CKMB, CKMBP in the last 168 hours.TROPONIN@:8,No results found for: BNP:8)@ No intake or output data in the 24 hours ending 07/19/[address] Chest w/o IV con 07/19/2020 RESULT: Limitations: ?No intravenous contrast. Lines, tubes, and devices: ?None. Lungs/pleura: Linear bands of density noted in both lung bases most likely representing areas of atelectasis. Otherwise no infiltrates are noted throughout either lung. Lower neck/thoracic inlet/mediastinum: Heart size is normal. No pericardial effusion. No significant mediastinal lymph node enlargement. Residual thymic tissue noted anteriorly. Bones and soft tissues: No significant additional findings. Upper abdomen: No significant additional findings. Broiler Supervisor (topogram) images: No significant additional findings. Micro 07/15 ([place]) @2pm Blood culture = prelim ngtd 07/16 ([place]) @5pm Blood culture = prelim ngtd 07/17 ([facility]) Blood culture = ngd1 ASSESSMENT 1. Tricuspid valve Infective Endocarditis - 1 x 0.5 cm vegetation, so far culture negative 2. IVDU (heroin) - last used morning of 07/13 3. Worsening leukocytosis 4. Recurrent fevers Plan -I called the microbiology lab at [place] - both blood cultures from 07/15 and 07/16 continue to have no growth to date -repeat blood cultures drawn on admission at [facility] on 07/17 - no growth to date -continue to follow-up repeat blood cultures but will likely have to treat this as culture negative tricuspid valve endocarditis -continues to spike fevers, will continue to monitor WBC's and fever curve - fever of 102 F at 2100 on 07/17, then again on 07/18 at 1615 at 102.6 F and at 1759 at 101.1 F -continue vancomycin and cefepime for now -vancomycin dosing per pharmacy -de-escalate antibiotics based on cultures -follow-up CT surgery recommendations - CT chest ordered, TTE report from [facility] uploaded into [facility] Attending addition- CT chest shows: Linear bands of suspected atelectasis at the lung bases. No other findings in the lungs to suggest pneumonia. SIGNATURE: Royal Jones DO PATIENT NAME: Khanh De La Vega DATE: July 19, 2020 TIME: 11:27 AM PAGER/CONTACT #: [phone] I saw and evaluated the patient. Discussed with the resident and agree with resident's findings and plan as documented in the resident's note. Briefly this is a 35 year old male IV drug user with culture negative douglas tricuspid valve endocarditis. Although leukocytosis up seems to be otherwise improving. Likely will be on vancomycin plus cefepime x [address] week course[address] Spoke with CT surgery SHRIMP PEELER- no plans for surgical intervention at this time. SIGNATURE: Stevo Bowens III, MD PATIENT NAME: Khanh De La Vega DATE: July 19, 2020 TIME: 4:34 PM PAGER/CONTACT #: [phone] [facility] CONSULT PROG HNO ID: [id number] Author: Fabienne Dorado (Postal Service Mail Processor) Service: Pharmacy Author Type: Pharmacist Type: Consult Progress Note Filed: 07/19/2020 7:07 AM Note Text: PHARMACY VANCOMYCIN DOSING NOTE Patient Name: Khanh De La Vega Admission Date: 07/17/2020 Date of Consult: 07/19/2020 Time of Consult: 6:46 AM Indication: Endocarditis Goal Range: 15-25 mcg/mL RECOMMENDATIONS/PLAN: Pharmacy consulted for vancomycin dosing for Khanh De La Vega, a 35 year old, male who is being treated with vancomycin for infective endocarditis. 1. Patient is currently ordered Vancomycin 1.25 g q8h. Today is day 2 of therapy. 2. The most recent vancomycin level was 10.9 mcg/mL drawn at 0600 on 07/19/2020. This is a 7.5 hour level on the 2nd day of therapy. 3. Will increase vancomycin to 1.5 g with a dosing interval of q8h. Patient received 1.25 g x 1 dose on 07/19. Will further increase the dose based on the level that resulted being well outside of the therapeutic range. With this patient will lean towards more aggressive dosing due to the nature of the infection, patient's age and renal function. 4. The next vancomycin level has been ordered for 07/20/2020 @ 0600 (Completed) We will follow patient renal function, vancomycin levels and doses with you during the course of therapy. Additional recommendations will appear in follow up notes. If [place] [phone]. Age: [age] year old Allergies: ALLERGIES Allergen Reactions - Penicillins Swelling - Sulfa (Sulfonamide * Swelling Last 3 Encounter Wt Readings: Date: Wt: 07/17/2020 73.3 kg (161 lb 9.6 oz) 11/23/2019 81.6 kg (180 lb) 02/25/2018 81.6 kg (180 lb) Last 1 Encounter Ht Readings: Date: Ht: 07/17/2020 175.3 cm (5' 9) CrCl: 136.2 mL/min Temp (24hrs), Av.6 ?C (99.6 ?F), Min:36.5 ?C (97.7 ?F), Max:39.2 ?C (102.6 ?F) - Current Temp: 37.5 ?C (99.5 ?F) Labs BUN (mg/dL) Date Value 07/19/2020 15 07/17/2020 10 02/10/2018 16 04/23/2017 8 04/21/2017 10 Creatinine (mg/dL) Date Value 07/19/2020 0.75 07/17/2020 0.74 02/10/2018 0.92 04/23/2017 0.81 04/21/2017 0.88 WBC Date Value 07/19/2020 20.38 k/uL (H) 07/17/2020 15.34 k/uL (H) 02/10/2018 10.24 thou/cmm (H) 04/23/2017 9.9 thou/cmm 04/21/2017 9.9 thou/cmm Vancomycin Levels: Vancomycin (ug/mL) Date/Time Value 07/19/2020 0600 10.9 PADMA GILMAN, PHARMACIST Normal [facility] CT CHEST WO IVCONon 07-19-[address] CHEST WO IVCON Final Report DATE OF EXAM: Jul 19 2020 12:26PM [facility] 0541 - CT CHEST WO IVCON / PROCEDURE REASON: Endocarditis, infective suspected Physician Interpretation EXAMINATION: CHEST CT WITHOUT CONTRAST CLINICAL HISTORY: Endocarditis, infective suspected history of exposure to Covid19. Technique: Spiral CT acquisition of the chest from the thoracic inlet to the upper abdomen without contrast. MQ: [id number] CT Dose-Length Product: [address] Dose Reduction Employed: Iterative recon and mAs-kVp adjusted using patient size-age Comparison: None. RESULT: Limitations: No intravenous contrast. Lines, tubes, and devices: None. Lungs/pleura: Linear bands of density noted in both lung bases most likely representing areas of atelectasis. Otherwise no infiltrates are noted throughout either lung. Lower neck/thoracic inlet/mediastinum: Heart size is normal. No pericardial effusion. No significant mediastinal lymph node enlargement. Residual thymic tissue noted anteriorly. Bones and soft tissues: No significant additional findings. Upper abdomen: No significant additional findings. Broiler Supervisor (topogram) images: No significant additional findings. IMPRESSION: Linear bands of suspected atelectasis at the lung bases. No other findings in the lungs to suggest pneumonia. Life Support Technician: PSCB Transcribe Date/Time: Jul 19 2020 12:43P Dictated by : DERIK WATERS MD This examination was interpreted and the report reviewed and electronically signed by: DERIK WATERS MD on Jul 19 2020 12:55PM EST Normal [facility] PROGRESSon 07-19-2020 PROGRESS HNO ID: [id number] Author: Marilyn Graham Service: Pain Management Author Type: Physician Type: Progress Notes Filed: 07/19/2020 2:17 PM Note Text: Name: KHANH DE LA VEGA Age: [age] year old PAIN MANAGEMENT: Back pain, TV endocarditis, IVDA; opiate dependent Pain Description: less back pain; c/o mild diffuse pain. Minimal w/d symptoms Interval HPI: remains febrile Tm 39.2 Followed by ID and CTS; on vancomycin and cefepime. Repeat blood cultures pending. Echo images from [facility] pending 24H Comfort Meds: Tylenol 650 mg Morphine 2 mg x0?discontinued Methadone 5 mg x 4 Atarax 50 mg x 0 Subjective HPI: 35-year-old male with history of active IVDA (heroin, fentanyl, methamphetamine-daily times years), hepatitis C presented to [facility] 07/13 with worsening fatigue, fevers. Patient was noted to have leukocytosis; urine drug screen positive for opiates and amphetamines. TTE demonstrated 0.5 x 1 cm tricuspid valve vegetation. Patient was started on IV vancomycin and Zosyn. He was briefly treated with Suboxone for opiate withdrawal. He was transferred to [facility] 07/17 for evaluation by CTS for possible surgery. Patient states he last used IV heroin and methamphetamine on 07/13. He was intolerant of Suboxone in the past due to GI upset. He had been on it for about 3 months 5 years ago. He has not been on methadone maintenance. He complains of back pain as well as some mild withdrawal symptoms. OARRS Review: 1 prescription [place] / #10 Current Facility-Administered Medications Medication Dose Route Frequency Provider Last Rate Last Dose - vancomycin iv piggyback 1.5 g in D5W 250 mL (VANCOCIN) 1.5 g INTRAVENOUS q 8 H Fabienne Dorado ([employer]) - senna-docusate 8.6-50 mg 2 tablet (SENNA-S) 2 tablet ORAL BID Amarjit (Res) MD Tere - polyethylene glycol 3350 17 g packet (MIRALAX, GLYCOLAX) 17 g ORAL DAILY Amarjit (Res) MD Tere - methadone 5 mg tab(s) (DOLOPHINE) 5 mg ORAL q 4 H PRN Marilyn K Scantling 5 mg at 07/19/20 1302 - nicotine 14 mg/24 hr 1 Patch (NICODERM) 1 Patch TRANSDERMAL DAILY Amarjit (Res) MD Tere 1 Patch at 07/19/20 0817 And - nicotine -- REMOVE patch OTHER DAILY Amarjit (Res) MD Tere And - nicotine - verify patch OTHER q 8 H Amarjit (Res) MD Tere - cefepime 2 g in D5W 100 mL MB+ (MAXIPIME) 2 g INTRAVENOUS q 8 HR Stevo Crenshawford III 200 mL/hr at 07/19/20 0441 2 g at 07/19/20 0441 - perflutren lipid microspheres 1.1 mg/mL 1.3 mL injection (DEFINITY) 1.3 mL INTRAVENOUS DIRECTED PRN Stevo Bowens III - vancomycin dosing and monitoring per pharmacy OTHER As Directed Minerva (Res) Rath - enoxaparin 40 mg injection (LOVENOX) 40 mg SUBCUTANEOUS DAILY Minerva (Res) Rath - ondansetron 4 mg tab(s) (ZOFRAN) 4 mg ORAL q 6 H PRN Minerva (Res) Rath Or - ondansetron (PF) 4 mg injection (ZOFRAN) 4 mg INTRAVENOUS q 6 H PRN Minerva (Res) Rath 4 mg at 07/17/20 2231 - acetaminophen 650 mg tab(s) (TYLENOL) 650 mg ORAL q 6 H PRN Minerva (Res) Rath 650 mg at 07/18/20 1637 - hydrOXYzine HCl 50 mg tab(s) (ATARAX) 50 mg ORAL q 6 H PRN Minerva (Res) Rath No medications prior to admission. Social History Tobacco Use - Smoking status: Current Every Day Smoker Packs/day: 1.00 Types: Cigarettes - Smokeless tobacco: Never Used Substance Use Topics - Alcohol use: Yes Comment: socially - Drug use: Yes Types: Crystal Meth, Marijuana, Heroin, Amphetamines Comment: pt does inject No family history on file. PAST SURGICAL HISTORY Procedure Laterality Date - ORTHOPEDICS SURGERY HX Right pins placed in right hand ROS: All of the following reviewed and negative except as noted below: Significant for HPI GENERAL: no fever, chills, sweats, weight loss, fatigue, generalized weakness HEENT: no headache, vision changes, eye discomfort, hearing change, ear discomfort, sinus pain, nasal discharge or congestion, oral lesions, soreness, dental problem NECK: no adenopathy, discomfort, change in ROM CHEST: no shortness of breath, dyspnea on exertion, wheezing, cough, sputum production or chest pain HEART: no chest pain, palpitations, syncope ABDOMEN: no nausea, vomiting, constipation, diarrhea, abdominal pain : no dysuria, urgency, frequency, history of stones, incontinence NEURO: no confusion or alteration in consciousness, slurred speech, seizure, focal weakness EXTREMITIES: no new pain, edema, change in ROM HEME: no new adenopathy, bruises, petechiae PSYCH: no depression, anxiety, agitation PAIN PSYCHIATRIC EXAM: GENERAL: alert, oriented to person, place, time JUDGMENT AND INSIGHT: intact APPEARANCE: neatly groomed DEMEANOR: coooperative, not hostile, mistrustful, preoccupied, or demanding ACTIVITY: normal, not hyperactive or hypoactive, no tremors, tics EYE CONTACT: normal SPEECH: normal, rate, volume, articulation, coherence, spontaneity MOOD: normal, without overt sadness, grief, anxiety, appropriate to situation IDEATION: Deferred MEMORY: intact PHYSICAL EXAMINATION: GENERAL: well nourished and developed; no acute distress; alert and oriented x 3; intact judgement and insight HEENT: no evidence of trauma; cranial nerves intact; eyes clear EOMI; no hearing deficits apparent; nasal passages unremarkable; throat and mucous membranes clear NECK: supple without lymphadenopathy; no JVD; no thyromegaly CHEST: clear bilaterally to auscultation; normal chest movement; no rales or rhonchi HEART: regular rate and rhythm, 2/6 systolic murmur ABDOMEN: soft; nondistended; bowel sounds present; no hepatomegaly; no splenomegaly; no tenderness EXTREMITIES: no evidence of clubbing; no cyanosis; no deformity; no joint effusion; no edema NEURO: cranial nerves intact; no focal deficits; no confusion; no tremor; sensorium normal SKIN: no rash; no skin breakdown; no decubitus lesions HEME: no bruising; no adenopathy PSYCH: no evidence of depression; no anxiety; no agitation; no apparent hallucinations BP 99/68 Pulse 70 Temp 37 ?C (98.6 ?F) (Oral) Resp 16 Ht 175.3 cm (5' 9) Wt 73.3 kg (161 lb 9.6 oz) SpO2 97% BMI 23.86 kg/m? BMI 23.86 kg/(m2) ABNORMAL/NEW FINDINGS: NONE RADIOLOGY/DIAGNOSTICS: LABORATORY: CBC: Recent Labs 07/19/20 0600 WBC 20.38* RBC 3.83* HB 10.5* HCT 31.4* PLT 209 MCV 82.0 MCH 27.4 MPV 9.3 CMP: Recent Labs 07/19/20 0600 NA 128* K 4.3 CHLOR 96* CO2 25 BUN 15 CREAT 0.75 GLUC 102* CA 8.8 ANION 7* Heme: No results for input(s): RETICP, ABSRETIC, LD, YEIMY, FE, TIBC, TRANSFERSAT in the last 24 hours. 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 Patient on IV vancomycin and cefepime. Repeat blood cultures pending. Images from ECHO at [facility] pending CTS and ID following Per chart, patient on brief Suboxone taper at [facility] for opiate withdrawal Patient complained of back pain yesterday?better today; may need further imaging to rule out discitis or osteomyelitis Methadone 5 mg every 4 hours as needed pain. Methadone will also assist with withdrawal symptoms Patient not interested in Suboxone; intolerant of it in the past due to GI upset Consider chemical dependency input Marilyn Graham MD ADDENDUM: Portions of this note were copied so as to provide important historical information essential in contributing to medical decision making today. Normal [facility] PROGRESS HNO ID: [id number] Author: Servando John MS Service: Hospital Medicine Author Type: ? Type: Progress Notes Filed: 07/19/2020 12:31 PM Note Text: Attestation signed by Nader Scales at 07/19/2020 1:43 PM Supervision of Medical Student Attestation Note I verified the medical student?s documentation in the medical record. Please see resident note with my attention for the day. Signature: Nader Scales, DO Date: 07/19/2020 Time: 1:43 PM Pager: [phone] [facility] DAILY PROGRESS NOTE SERVICE DATE: 07/19/2020 SERVICE TIME: 8:34 AM PCP: No primary care provider on file. HPI: Mr. Khanh De La Vega is a 35 yo male with a past medical history of IVDU (last use 07/13), hepatitis C (positive antibody 11/23/19). He presented to the [facility] on 07/13/20 for chronic fatigue. While there, he had fevers to 102F, leukocytosis, and symptoms of opiate withdrawal. Blood cultures pulled on 07/13 returned negative. He had a TTE which revealed tricuspid valve vegetation 0.5x1cm and he was subsequently started on IV vancomycin and zosyn empirically for infective endocarditis. ID was consulted at [place] and they switched his antibiotics to IV vancomycin and IV cefepime. In addition, he was given a buprenorphine taper and tested negative for HIV and Hep B. He continued to spike fevers. Repeated blood cultures were drawn on 07/15 and are still pending. He was transferred to [facility] on 07/17 for evaluation by cardiac surgery for possible surgical intervention for his infective endocarditis INTERVAL HISTORY: No acute events overnight. Pharmacy assisting with IV vancomycin dosing, will increase dose to 1.5 g q8h due to subtherapeutic levels at last draw. Will draw a new level today and adjust accordingly. PT evaluation recommended home. Followed by ID, cardiac surgery. Upon exam, patient complains of diffuse lower back pain which he attributes to withdrawals and abdominal pain which he attributes to constipation. He has not yet had a bowel movement and because of this, has had very little oral intake of solids or liquids since the weekend per patient report. He spiked fevers yesterday afternoon/evening (Tmax 102.6) but was afebrile this AM. ROS is otherwise negative for nausea, vomiting, diarrhea, shortness of breath, chest pain, dysuria, headache, dizziness/lightheadedn ess. MEDICATIONS: Current Facility-Administered Medications Medication Dose Route Frequency - vancomycin dosing and monitoring per pharmacy OTHER As Directed - enoxaparin 40 mg injection (LOVENOX) 40 mg SUBCUTANEOUS DAILY - ondansetron 4 mg tab(s) (ZOFRAN) 4 mg ORAL q 6 H PRN Or - ondansetron (PF) 4 mg injection (ZOFRAN) 4 mg INTRAVENOUS q 6 H PRN - acetaminophen 650 mg tab(s) (TYLENOL) 650 mg ORAL q 6 H PRN - hydrOXYzine HCl 50 mg tab(s) (ATARAX) 50 mg ORAL q 6 H PRN - methadone 5 mg tab(s) (DOLOPHINE) 5 mg ORAL q 4 H PRN - nicotine 14 mg/24 hr 1 Patch (NICODERM) 1 Patch TRANSDERMAL DAILY And - nicotine -- REMOVE patch OTHER DAILY And - nicotine - verify patch OTHER q 8 H - cefepime 2 g in D5W 100 mL MB+ (MAXIPIME) 2 g INTRAVENOUS q 8 HR - perflutren lipid microspheres 1.1 mg/mL 1.3 mL injection (DEFINITY) 1.3 mL INTRAVENOUS DIRECTED PRN - senna-docusate 8.6-50 mg 1 tablet (SENNA-S) 1 tablet ORAL BID - polyethylene glycol 3350 17 g packet (MIRALAX, GLYCOLAX) 17 g ORAL DAILY PRN - vancomycin iv piggyback 1.5 g in D5W 250 mL (VANCOCIN) 1.5 g INTRAVENOUS q 8 H HOME MEDICATIONS: No prescriptions on file. PHYSICAL EXAM: 07/18/20 1759 07/18/20 1955 07/19/20 0553 07/19/20 0757 BP: 101/60 99/55 104/60 Pulse: 79 71 68 Resp: 18 18 18 Temp: (!) 38.4 ?C (101.1 ?F) 37.7 ?C (99.9 ?F) 37.5 ?C (99.5 ?F) 36.7 ?C (98.1 ?F) TempSrc: Oral Oral Oral SpO2: 95% 97% 92% Weight: Height: INTAKE/OUTPUT No intake or output data in the 24 hours ending 07/19/20 0834 Physical Exam Constitutional: He is oriented to person, place, and time and well-developed, well-nourished, and in no distress. HENT: Head: Normocephalic and atraumatic. Eyes: Pupils are equal, round, and reactive to light. Conjunctivae and EOM are normal. Cardiovascular: Normal rate, regular rhythm, normal heart sounds and intact distal pulses. Exam reveals no gallop and no friction rub. No murmur heard. Pulmonary/Chest: Effort normal and breath sounds normal. No respiratory distress. He has no wheezes. He has no rales. Abdominal: Soft. Bowel sounds are normal. He exhibits no distension. There is abdominal tenderness (diffuse, nonspecific). There is no rebound. Musculoskeletal: General: No tenderness or edema. Neurological: He is alert and oriented to person, place, and time. Skin: Skin is warm and dry. No rash noted. No erythema. LAB DATA: Recent Labs 07/19/20 0600 07/17/20 2216 WBC 20.38* 15.34* HB 10.5* 10.8* HCT 31.4* 32.2* PLT 209 191 NA 128* 130* K 4.3 4.3 CHLOR 96* 93* CO2 25 26 CREAT 0.75 0.74 BUN 15 10 GLUC 102* 111* TPROT -- 7.9 MG -- 1.8 CA 8.8 8.6 ALKPHOS -- 120* TBILI -- 0.3 AST -- 27 ALT -- 13 ASSESSMENT AND PLAN: Active Hospital Problems Diagnosis - Infective endocarditis - Mild protein-calorie malnutrition (HCC) - Hyponatremia - IVDU (intravenous drug user) - Fever - Leucocytosis - Hepatitis C antibody positive in blood - Nicotine use disorder, F17.2 - Methamphetamine dependence (HCC) - Cannabis dependence (HCC) PLAN FOR THE DAY 1. 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 2. IVDU, polysubstance abuse - Received buprenorphine taper at OSH - Pain management following - Currently receiving tylenol 650 mg PO for pain q6h PRN, methadone 5 mg PO q4h PRN - Not interested in Suboxone at this time per pain management - counseled to quit ? 3. Constipation - Hx of opioid use - last BM 07/13/20 - Currently receiving Senna-docusate 8.6-50 mg 2 tabs PO BID, Miralax 17 g PO daily (scheduled) ? 4. Anxiety - Currently receiving hydroxyzine 50 mg PO q6h PRN ? 5. Nicotine use - placed on 14 mg patch daily - counseled to quit ? 6. Normocytic anemia - last Hgb 10.5 (down from 10.8) - likely 2/2 to infective endocarditis - continue to monitor ? 7. Hyponatremia - last 128 (down from 130) - currently asymptomatic - continue to monitor DVT Prophylaxis: Lovenox 40 mg GI Prophylaxis: None indicated Telemetry: discontinued Disposition: PT/OT recommend home, currently homeless, social work following SIGNATURE: Servando John PATIENT NAME: Khanh De La Vega DATE: July 19, 2020 TIME: 8:34 AM Pager: Maria Esther [facility] PROGRESS HNO ID: [id number] Author: Nader Scales Service: Hospital Medicine Author Type: Physician Type: Progress Notes Filed: 07/19/2020 7:54 AM Note Text: Documentation Query Based on your medical judgment of the clinical indicators outlined below, please clarify the condition: (Please type X next to your response and sign) Mild protein calorie malnutrition DO Maria Esther Dalal [facility] PROGRESS HNO ID: [id number] Author: Mac Negron Service: Hospital Medicine Author Type: Resident Type: Progress Notes Filed: 07/19/2020 1:43 PM Note Text: Attestation with edits by Nader Scales at 07/19/2020 1:43 PM Attending Note I personally saw and examined the patient on 07/19/20. I reviewed the resident's note. I agree with the resident's assessment and plan unless otherwise noted. Signature: Nader Scales DO Date: 07/19/2020 Time: 1:43 PM Pager: [phone] HOUSE [facility]IC[facility] SERVICE PROGRESS NOTE SERVICE DATE: July 19, 2020 SERVICE TIME: 1:01 PM NIGHT AND WEEKEND COVERAGE: From 6 AM to 5 PM: You may reach the House Medicine sales and marketing intern currently assigned to this patient by finding their pager number on the treatment team (they will be assigned as the sales and marketing intern or resident). It is the last [phone] digits in the phone number beginning with ([phone]). We encourage the use of [employer] Secure Chat. PCP: No primary care provider on file. Admitting Attending: Elijah Hill SUBJECTIVE Chief Complaint: Fever/ fatigue HPI: Patient is a 35 yr male who is a chronic IVDU since 2009 and Hep C positive ( antibody positive on 11/23/19), presented to the [facility] for chronic fatigue on 07/13/20. He was found to have opiate withdrawal symptoms and had spiking fevers maximum temp being 102 F, raised WBC and negative blood cultures (07/15). His urine tox was positive for opiates, amphetamines and opiates. 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 ID consultation was done and his zosyn was switched to cefepime. He was treated for b with buprenorphine which was tapered. He was found to be negative for HIV and Hep B and his WBCs started trending down, however he still spiked fevers. Repeat blood cultures on 07/15 were sent which is still pending. He was transferred to [facility] for CT surgery evaluation for possible surgery for his IE. During my encounter, patient was febrile 102 F. Complaints of global pain. He admitted to intermittent abdominal discomfort and said he had been constipated for 3 days. He denied any chest pain, palpitations, lightheadedness, or bilateral LL swelling. He said his last IVDU was on Thursday morning (07/13/20) before he presented to the hospital. He denied the use of leg veins for the same. Of note, he was covid positive on 06/29/20 however he was tested negative during his hospital admission in [place]. Interval events: -Patient states he is doing better. -Continues to complain of no BM. -Admits to weakness, dizzines, LUBIN, back pain and abdominal pain 2/2 constipation. -Denies fevers, night sweats, CP, SOB, nausea or vomiting. Plan for the day: Schedule Senna docusate and Murelax. PAST MEDICAL HISTORY Diagnosis Date Anxiety Depression Paranoid schizophrenia (HCC) PAST SURGICAL HISTORY Procedure Laterality Date ORTHOPEDICS SURGERY HX Right pins placed in right hand No family history on file. Social History Tobacco Use Smoking status: Current Every Day Smoker Packs/day: 1.00 Types: Cigarettes Smokeless tobacco: Never Used Substance Use Topics Alcohol use: Yes Comment: socially Drug use: Yes Types: Crystal Meth, Marijuana, Heroin, Amphetamines Comment: pt does inject Medications: No medications prior to admission. ALLERGIES Allergen Reactions Penicillins Swelling Sulfa (Sulfonamide * Swelling OBJECTIVE: Vital Signs: BP 99/55 Pulse 71 Temp (Src) 99.5 (Oral) Resp 18 Ht 5' 9 (1.75m) Wt 161 lb 9.6 oz (73.3kg) SpO2 97% BMI 23.85 kg/(m2). O2 Therapy: Room Air Physical Exam Performed: GENERAL: Alert, no distress, cooperative SKIN: Skin color, texture, turgor normal. Multiple tattoos on bilateral UL, bruises on right antecubital fossa HEAD/SINUSES: No significant findings EYES: PERRLA, EOMI EARS: External ears normal, canals clear NOSE: Nares normal. Septum midline. OROPHARYNX: Lips, mucosa, and tongue normal. Multiple teeth absent with soft gums. Oropharynx normal. NECK: No jugulovenous distention, No carotid bruits, Carotid pulse normal contour, Supple BACK: Back symmetric, Normal curvature, ROM normal, No CVAT. LUNGS: Lungs clear to auscultation, Good diaphragmatic excursion CARDIAC: Normal S1 and S2; no rubs, murmurs, or gallops ABDOMEN: Abdomen soft, Mildly tender to palpation epigastric, BS normal, No masses or organomegaly EXTREMITIES: Extremities normal, no deformities, edema, clubbing or skin discoloration. Good capillary refill., No ulcers NEURO: Gait normal. Reflexes normal and symmetric. Sensation grossly intact, Cranial nerves II-XII intact PULSES: 2+ radial, 2+ carotid Lines, Drains, and Airways Line Peripheral 07/17/201999 Assessment Short Left Forearm 18 Gauge 1 day Reviewed lines and needs to be continued: REASONS: Intravenous antibiotics Data: There is no new data today. WBC Date Value 07/17/2020 15.34 k/uL (H) 02/10/2018 10.24 thou/cmm (H) RBC Date Value 07/17/2020 3.91 m/uL (L) 02/10/2018 4.70 mil/cmm Hemoglobin (g/dL) Date Value 07/17/2020 10.8 (L) 04/17/2014 15.1 HGB (g/dL) Date Value 02/10/2018 13.6 (L) Hematocrit (%) Date Value 07/17/2020 32.2 (L) 02/10/2018 40.9 MCV Date Value 07/17/2020 82.4 fL 02/10/2018 87.0 fl MCH (pg) Date Value 07/17/2020 27.6 02/10/2018 28.9 MCHC Date Value 07/17/2020 33.5 g/dL 02/10/2018 33.3 % RDW-CV (%) Date Value 07/17/2020 13.8 Platelet Count Date Value 07/17/2020 191 k/uL 02/10/2018 299 thou/cmm MPV Date Value 07/17/2020 9.6 fL 02/10/2018 10.4 fl Glucose (mg/dL) Date Value 07/17/2020 111 (H) 02/10/2018 98 BUN (mg/dL) Date Value 07/17/2020 10 02/10/2018 16 Creatinine (mg/dL) Date Value 07/17/2020 0.74 02/10/2018 0.92 Sodium Date Value 07/17/2020 130 mmol/L (L) 02/10/2018 138 mEq/L Potassium Date Value 07/17/2020 4.3 mmol/L 02/10/2018 3.4 mEq/L (L) Chloride Date Value 07/17/2020 93 mmol/L (L) 02/10/2018 110 mEq/L (H) CO2 Date Value 07/17/2020 26 mmol/L 02/10/2018 24 mEq/L Protein, Total (g/dL) Date Value 07/17/2020 7.9 04/23/2017 7.5 Albumin (g/dL) Date Value 04/23/2017 3.5 Calcium (mg/dL) Date Value 02/10/2018 8.8 Calcium, Total (mg/dL) Date Value 07/17/2020 8.6 Alkaline Phosphatase (U/L) Date Value 07/17/2020 120 (H) 04/23/2017 85 Bilirubin, Total (mg/dL) Date Value 07/17/2020 0.3 04/23/2017 0.4 AST (U/L) Date Value 07/17/2020 27 04/23/2017 26 ALT (U/L) Date Value 07/17/2020 13 04/23/2017 30 URINALYSIS Specific [place], Ur Date Value Ref Range Status 02/10/2018 1.028 1.005 - 1.030 Final Glucose, Urine Date Value Ref Range Status 02/10/2018 NEGATIVE Negative mg/dL Final Bilirubin, Urine Date Value Ref Range Status 02/10/2018 see below (A) Negative Final Comment: Detected (Unable to confirm). Ketones, Urine Date Value Ref Range Status 02/10/2018 TRACE (A) Negative mg/dL Final Protein, Urine Date Value Ref Range Status 02/10/2018 TRACE (A) Negative mg/dL Final Urobilinogen, Urine Date Value Ref Range Status 02/10/2018 1.0 0.0 - 1.0 EU/dL Final WBC, Urine Date Value Ref Range Status 02/10/2018 1.0 0.0 - 5.0 /hpf Final Assessment/Plan Problem List Infective endocarditis Methamphetamine dependence (HCC) Cannabis dependence (HCC) Nicotine use disorder, F17.2 IVDU (intravenous drug user) Fever Leucocytosis Hepatitis C antibody positive in blood Active Problems: Infective endocarditis likely due to IVDU Fever Leucocytosis - Chronic IVDU since 2009 - TTE done in outside hospital showed : tricuspid valve vegetation 1 X 0.5 cm - Multiple spikes of fever max temp of 102 F - Raised WBC 14 k on discharge from outside hospital - Blood cultures on 07/13 during admission negative and repeat blood cultures on 07/15 pending - Continue IV Vancomycin and Cefepime 2 mg daily empirically. Per ID - CT surgery consult for possible surgery. Echo repeat pending. - Blood cultures repeated on 07/17, NGTD 1 - ID consulted, appreciate recommendations - CT surgery consulted, appreciate recommendations. - CT chest ordered by tax credit leasing consultant. - Trend WBCs 07/19/20 at 20 from 15 - Monitor Hemodynamics. Stable -SW: possible SNIF considering need for intermediate abx. Referral sent Chronic IVDU / Polysubstance abuse: - Was on buprenorphine taper in the outside hospital - Placed on tylenol for mild pain - DC Oxycodone IR - DC Morphine - Pain management consultation done. Started Methadone. - Hydroxyzine q6h Prn for anxiety - Counseled on dangers and consequence of this behavior. Constipation -Likely 2/2 to chronic opioid use. -dc morphine and oxycodone -Started on senna docusate and miralax. Hyponatremia - 130 on admission. Asymptomatic - Continue to monitor. - today at 128 Normocytic anemia in the setting of Endocarditis -Hgb 10.8 -MCV 82.4 - Monitor labs and symptoms Nicotine use disorder - Placed on Nicotine patch 14mg - counseled to quit Disposition - Patient is homeless - OT/PT eval : dispo: Home - family independence case manager consult Medication and Non-Pharmacologic VTE Prophylaxis/Anticoagul ants Anticoagulant AND Antiplatelet Medications (From admission, onward) Start Dose Route Frequency Ordered Stop 07/17/202099 enoxaparin 40 mg injection (LOVENOX) (Medical Risk Categories) 40 mg SUBCUTANEOUS DAILY 07/17/202044 -- 07/17/202044 pneumatic compression stockings ([place], [place]) 07/17/202044 activity - mobilize patient ([place]) VTE Prophylaxis: VTE prophylaxis appropriate GI Prophylaxis: Not indicated Telemetry: Not indicated Disposition: To be determined Code Status: Not on file Plan of care discussed with: Provider, RN, Patient SIGNATURE: Mac negron DO PATIENT NAME: Khanh De La Vega DATE: July 19, 2020 TIME: 1:01 PM Normal [facility] VANCOMYCINon 07-19-2020 Vancomycin [Mass/Vol] 10.9 ug/mL Normal 10.0-20.0 [facility] Comment on above: Order Comment: Speci men Type: BLOOD SPECIMEN Result Comment: Refe rence ranges and high/low indicator flags are provided as general guidelines only. The treating physician must determine appropriate target levels/dosing based on the specific clinical situation. Performed By: #### V ANCRA #### [facility] CLIA [id number] [address] [place] [address] Bacteria Bld Culton 07-18-20 20 Bacteria identified Cx Nom (Bld) CULTURE, BLOOD: No growth 5 days Normal [facility] Comment on above: Performed By: #### 6 -7 ####[facility] [id number] [place] [address] CASE MANAGEMon 07-18-2020 CASE MANAGEM HNO ID: [id number] Author: Jennifer Grace (Sw) Service: Social Work Author Type: Product Transfer Pumper Type: Care Mgt Progress Note Filed: 07/18/2020 3:42 PM Note Text: CARE MANAGEMENT PROGRESS NOTE SERVICE DATE: 07/18/2020 SERVICE TIME: 3:39 PM LOS: 1 day Attempted twice to do initial assessment with pt. but pt requested social work return at later time. SIGNATURE: MARIS Mariee PATIENT NAME: Khanh De La Vega DATE: July 18, 2020 TIME: 3:39 PM PAGER/CONTACT #: [phone] Normal [facility] CBC (hemogram) Bld Autoon Erythrocyte distribution width (RBC) [Ratio] 13.8 % Normal 11.5-15.0 [facility] Comment on above: Order Comment: Speci men Type: BLOOD SPECIMEN Performed By: #### 6 7 #### [facility] CLIA [id number] 1 [place] [address] Hematocrit (Bld) [Volume fraction] 32.2 % Low 39.0-51.0 [facility] Comment on above: Order Comment: Speci men Type: BLOOD SPECIMEN Performed By: #### 6 -7 #### [facility] CLIA [id number] 1 [place] [address] Hemoglobin (Bld) [Mass/Vol] 10.8 g/dL Low 13.0-17.0 [facility] Comment on above: Order Comment: Speci men Type: BLOOD SPECIMEN Performed By: #### 6 -7 #### [facility] CLIA [id number] 1 [place] [address] MCH (RBC) [Entitic mass] 27.6 pg Normal 26.0-34.0 [facility] Comment on above: Order Comment: Speci men Type: BLOOD SPECIMEN Performed By: #### 6 00-7 #### [facility] CLIA [id number] 1 [place] [address] MCHC (RBC) [Mass/Vol] 33.5 g/dL Normal 30.5-36.0 [facility] Comment on above: Order Comment: Speci men Type: BLOOD SPECIMEN Performed By: #### 6 -7 #### [facility] CLIA [id number] 1 [place] [address] MCV (RBC) [Entitic vol] 82.4 fL Normal 80.0-100.0 [facility] Comment on above: Order Comment: Speci men Type: BLOOD SPECIMEN Performed By: #### 6 -7 #### [facility] CLIA [id number] 1 [place] [address] Nucleated RBC (Bld) [#/Vol] 10*3/uL Normal <0.01 [facility] Comment on above: Order Comment: Speci men Type: BLOOD SPECIMEN Performed By: #### 6 -7 #### [facility] CLIA [id number] 1 [place] [address] Platelet mean volume (Bld) [Entitic vol] 9.6 fL Normal 9.0-12.7 [facility] Comment on above: Order Comment: Speci men Type: BLOOD SPECIMEN Performed By: #### 6 -7 #### [facility] CLIA [id number] 1 [place] [address] Platelets (Bld) [#/Vol] 191 10*3/uL Normal 150-400 [facility] Comment on above: Order Comment: Speci men Type: BLOOD SPECIMEN Performed By: #### 6 00-7 #### [facility] CLIA [id number] 1 [place] [address] RBC (Bld) [#/Vol] 3.91 10*6/uL Low 4.20-6.00 [facility] Comment on above: Order Comment: Speci men Type: BLOOD SPECIMEN Performed By: #### 6 00-7 #### [facility] CLIA [id number] 1 [place] [address] WBC (Bld) [#/Vol] 15.34 10*3/uL High 3.70-11.00 [facility] Comment on above: Order Comment: Speci men Type: BLOOD SPECIMEN Performed By: #### 6 00-7 #### [facility] CLIA [id number] [address] [place] [address] CONSULTon 07-18-2020 CONSULT HNO ID: [id number] Author: Derick Briones Service: Cardiac Surgery Author Type: Physician Type: Consults Filed: 07/20/2020 11:32 AM Note Text: CARDIOTHORACIC SURGERY CONSULT / HANDP SERVICE DATE: 07/18/2020 SERVICE TIME: 12:47 PM Subjective PRIMARY SERVICE: Cardiothoracic Surgery CHIEF COMPLAINT: Fevers, and presumed tricuspid valve endocarditis HPI: Khanh De La Vega is a 35 year old male who presented to [facility] with request for medication assisted opioid withdrawal. He has been using opioids daily for several years. He reports that he tested positive for Covid 19 on 06/29 with symptoms of fevers, night sweats, body aches, sore throat and nausea. All symptoms resolved except th fevers. Repeat covid at [facility] was negative on 07/15. In the ED his WBC were elevated at 19.2, mild anemia H/H 11.4/35.6, hyponatremia 127, positive UA and urine tox screen with opiates, amphetamines, methamphetamines, cannabinoids. During this admission, he spiked a fever to 102.7F which promoted blood cultures (no growth to date x 2 07/15 and 07/16). An echo was done and concerning for tricuspid valve endocarditis (full report below.) He was transferred to [facility] for cardiac surgery evaluation of his TVE. He reports a DVT about a year ago from lying on his left leg too long, however, this appears to have been negative. He otherwise admits poor dental hygiene, multiple drug abuse, current daily smoking, and denies CVA, CHF, [place], DM, liver disease, cancers. He was unaware of his HCV infection. Patient is Able to Perform the Following Physical Activity: Take care of self; that is eating, dressing, bathing, using the toilet (2.75 METs) Patient has the following medical comorbidities which might affect the perioperative course: - Anemia due to acute infection. 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 Patient has a N/A. - Subacute endocarditis PAST MEDICAL HISTORY Diagnosis Date - Anxiety - Depression - Paranoid schizophrenia (HCC) PAST SURGICAL HISTORY Procedure Laterality Date - ORTHOPEDICS SURGERY HX Right pins placed in right hand No family history on file. Social History Tobacco Use - Smoking status: Current Every Day Smoker Packs/day: 1.00 Types: Cigarettes - Smokeless tobacco: Never Used Substance Use Topics - Alcohol use: Yes Comment: socially - Drug use: Yes Types: Crystal Meth, Marijuana, Heroin, Amphetamines Comment: pt does inject No medications prior to admission. No prescriptions on file. ALLERGIES Allergen Reactions - Penicillins Swelling - Sulfa (Sulfonamide * Swelling REVIEW OF SYSTEMS: PAIN ASSESSMENT: HISTORY OF CHRONIC PAIN OR CURRENTLY BEING TREATED FOR A CHRONIC PAIN CONDITION: Yes, CONDITION: Low back pain self treats with heroin GENERAL: Recent febrile illness-Yes Covid 19 infection RESPIRATORY: Negative for cough, wheezing or shortness of breath. CARDIOVASCULAR: Negative for chest pain, leg swelling or palpitations. MUSCULOSKELETAL: Positive for back pain: chronic SKIN: Positive for lesions: IVDA injection sites Right AC PSYCH: Positive for IVD dependence and expresses desire to quit HEMATOLOGY/LYMPHOLOGY Negative for prolonged bleeding, bruising easily or swollen nodes. ENDOCRINE: Negative for cold or heat intolerance, polyuria, polydipsia and goiter. NEURO: Headaches with covid infection Objective PHYSICAL EXAM: BP 111/54 Pulse 64 Temp 36.6 ?C (97.9 ?F) (Oral) Resp 18 Ht 175.3 cm (5' 9) Wt 73.3 kg (161 lb 9.6 oz) SpO2 98% BMI 23.86 kg/m? Body surface area is 1.89 meters squared. STS RISK CALCULATOR: N/A for TVr General Appearance: well developed and no distress Skin: dry and hot to touch, IVDA injection sites noted in right AC, does not inject in feet Neck: no JVD and no carotid bruits Lungs: clear and respiratory effort: normal Heart: S1, S2 normal and no murmur Peripheral Vascular/Arteries: pulses intact Abdomen: soft, round, non-tender and bowel sounds present Neurologic/Psychiatric : oriented to time, place and person Extremities: normal exam of the extremities and no edema Lines, Drains, and Airways Line Peripheral 07/17/20 2000 Assessment Short Left Forearm 18 Gauge less than 1 day DATA: Diagnostic tests reviewed for today's visit: Significant Lab Results: As Below Chest X-RAY: Done 07/16/2020 at [facility] Findings: Patchy infiltrate of the left lower lobe. Mild increased markings in the right lower lobe. There is no demonstrated pleural abnormality. Normal heart size. Normal mediastinum and tg. Normal visualized pulmonary arteries. Normal visualized aortic arch and descending thoracic aorta. Normal visualized thoracic spine. Normal visualized ribs, clavicles, and shoulders. There is no demonstrated abnormality of the visualized soft tissue structures of the upper abdomen. ECHO: [facility] 07/16/2020 Left ventricle: Normal LV size. LV systolic function is normal. The estimated ejection fraction is 55%. No evidence for diastolic dysfunction. No regional wall motion abnormalities noted. Right ventricle: Normal RV size. Normal systolic function. Atria: Borderline to mildly enlarged left atrium. Normal right atrium. No Doppler evidence for ASD. Mitral valve: There is no mitral annular calcification. Mild diffuse mitral valve thickening. Trivial mitral valve insufficiency. Tricuspid valve: 2D echocardiographic images obtained demonstrate a vague mobile echodensity (approximately 0.5 cm x 1.0 cm) associated with the tricuspid valve chordae tendon a with differential diagnosis including a vegetation. Trivial tricuspid valve insufficiency. Right ventricular systolic pressure estimated to be 32 mmHg. Aortic valve: Trisinus/trileaflet aortic valve. Normal aortic valve. Pulmonic valve: The pulmonic valve is not well visualized. Trivial pulmonic valve insufficiency. Great vessels: Normal sized aortic root. Pericardium/pleural: No pericardial effusion. Recent Labs 07/17/20 2216 RBC 3.91* WBC 15.34* HB 10.8* HCT 32.2* PLT 191 NA 130* K 4.3 CHLOR 93* CO2 26 BUN 10 CREAT 0.74 GLUC 111* CA 8.6 MG 1.8 TPROT 7.9 TBILI 0.3 ALKPHOS 120* ALT 13 AST 27 ANION 11 Assessment/Plan Principal Problem: Infective endocarditis POA: Yes Assessment AND Plan: -Culture negative x 2 at [facility] 07/15 and repeated 07/16 -Reviewed with Dr Bowens and consider slow growing strep species -Echo done at [facility]. Images to be pushed and will scan and upload reports -small 0.5x1.0 cm vague mobile echodensity associated with chordae of TV, with trivial TR -Repeat echo at [facility] per Dr Bowens +To review with Dr Briones Recent HCV Dx, not treated -Recommend treatment in the future Covid 19 Infection -Dx 06/29 with resolution of all Sx except fevers -Repeat test 07/15 was negative Tests/Labs Ordered: 1. None These findings will be communicated back to the requesting provider electronically. SIGNATURE: Martín Rosas APRN.CREDIT OFFICER PATIENT NAME: Khanh De La Vega DATE: July 18, 2020 TIME: 10:31 AM PAGER/CONTACT #: [phone] Attending Note I have personally performed a face to face assessment of the patient and have reviewed the PA/NURSING SERVICES MANAGER note. My izaguirre findings include: Assessment/Plan are 35 year old man admitted in transfer from [facility] with fevers, sweats, myalgias, sore throat, and nausea and associated leukocytosis. In setting of recent +COVID (06/29) and active IVDA, possible withdrawal. Echo at [place] suggested a 1 cm mobile echodensity associated with the TV subvalvar apparatus, possible endocarditic vegetation. Blood culture negative to date. Here he has had +fever; repeat blood culture negative. CXR does not suggest septic emboli. A/P Possible TV IVDA related TV endocarditis, currently culture negative. Opiate withdrawal and recent COVID illnes may be clouding the picture as well. I recommend: 1. follow temperature and WBC 2. repeat blood cultures as indicated by above. 3. repeat echo and consider GRICELDA depending on findings. 4. consider CT chest to r/o septic pulmonary emboli. 5. no indication for cardiac surgery at this time. Other additions or changes: None Signature: Derick Briones MD Date: 07/20/2020 Time: 11:23 AM Normal [facility] CONSULT HNO ID: [id number] Author: Royal (Eliseo Jones DO Service: Infectious Disease Author Type: Resident Type: Consults Filed: 07/18/2020 1:00 PM Note Text: Attestation signed by Stevo Bowens III at 07/18/2020 2:15 PM Attending Note I evaluated the patient and personally participated in the izaguirre components. I agree with the resident's findings and plan with the following revisions and/or additions: On exam also found- eyes without any scleral icterus and no conjunctival emboli. Lymph- no cervical lymphadenopathy. No embolic lesions of the hands or feet. Skin without any rashes. 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 With this being culture negative wonder if he could have a more difficult to treat skin organism such as staph epi or a strep species but would still cover broadly including for hydrophilic organisms such as pseudomonas, Serratia, aeromonas. Sepsis seems to be improving. Spoke to CT surgery SHRIMP PEELER- they are going to try to get echo images from [facility]. If unsuccessful then repeat TTE here. Signature: Stevo Bowens III, MD Date: 07/18/2020 Time: 2:11 PM Infectious Disease CONSULT NOTE SERVICE DATE: 07/18/2020 SERVICE TIME: 9:40 AM REASON FOR CONSULT: Infective endocarditis REQUESTING PHYSICIAN: Dr. Hill ADMITTING PROVIDER: Elijah Hill SERVICE DATE: 07/18/2020 SERVICE TIME: 9:40 AM Admission Date: 07/17/2020 AGE: [age] year old LOS: 1 days Subjective History of Present Illness: Khanh De La Vega is a 35 year old male with PMH of IVDU, and hepatitis c, hx of COVID19 (positive on 06/29 but repeat testing negative for COVID) who initially presented to [facility] on 07/13 with a chief complaint of weakness. Course complicated by tricuspid valve vegetation (0.5 x 1 cm) on TTE and was initially started on IV vanc and zosyn. While at [place], Infectious Disease had switched his zosyn to cefepime. Utox positive for opioids and amphetamines. He was also treated for opioid withdrawal with buprenorphine which has been tapered. HIV and hep b negative, his leuocytosis improved but he continued to spike fevers. Initial cultures on 07/15 and 07/16 are no growth to date. He was subsequently transferred to [facility] on 07/[address] surgery evaluation for infective endocarditis. On admission here he was noted to be febrile (102) and complained of diffuse pain in his neck, back and legs. Last IVDU was on the morning of 07/13. Injects heroin into his right arm. Uses tap water as his water source. Denies any sharing or licking of his needles. Has never had anything like this in the past. Reports actually feeling much better this morning. Only endorses fatigue and constipation, last bm about 3 days ago. Denies anymore neck, back or leg pain. Denies chills or night sweats. Denies any nausea, vomiting, diarrhea. Denies any headaches, vision changes, trouble swallowing, chest pain, SOB, abdominal pain, LE pain or swelling. Denies any symptoms Review of Systems See HPI Objective PROBLEMS: ACTIVE PROBLEM LIST Severe Episode of Recurrent Major Depressive Disorder, With Psychotic Features (Hcc) Methamphetamine Dependence (Hcc) Cannabis Dependence (Hcc) Nicotine use disorder, F17.2 Substance Induced Mood Disorder (Hcc) Substance-Induced Psychotic Disorder (Hcc) Infective Endocarditis Ivdu (Intravenous Drug User) Fever Leucocytosis Hepatitis C Antibody Positive in Blood PAST MEDICAL HISTORY Diagnosis Date - Anxiety - Depression - Paranoid schizophrenia (HCC) No family history on file. PAST SURGICAL HISTORY Procedure Laterality Date - ORTHOPEDICS SURGERY HX Right pins placed in right hand Social History Tobacco Use - Smoking status: Current Every Day Smoker Packs/day: 1.00 Types: Cigarettes - Smokeless tobacco: Never Used Substance Use Topics - Alcohol use: Yes Comment: socially - Drug use: Yes Types: Crystal Meth, Marijuana, Heroin, Amphetamines Comment: pt does inject VITAL SIGNS (last 24hrs min/max): Temp Av.2 ?C (100.7 ?F) Min: 36.6 ?C (97.9 ?F) Max: 39.3 ?C (102.7 ?F) Pulse Av.3 Min: 64 Max: 98 No data recorded Cuff BP Min: 110/69 Max: 115/71 Pain Level: 0 Vital signs reviewed. BP 111/54 Pulse 64 Temp (Src) 97.9 (Oral) Resp 18 Ht 5' 9 (1.75m) Wt 161 lb 9.6 oz (73.3kg) SpO2 98% BMI 23.85 kg/(m2). O2 Therapy: Room Air Temp (24hrs), Av.2 ?C (100.7 ?F), Min:36.6 ?C (97.9 ?F), Max:39.3 ?C (102.7 ?F) NET FLUID BALANCE No intake or output data in the 24 hours ending 07/18/20 0940 MEDICATIONS Current Facility-Administered Medications Medication Dose Route Frequency - methadone 5 mg tab(s) (DOLOPHINE) 5 mg ORAL q 4 H PRN - vancomycin dosing and monitoring per pharmacy OTHER As Directed - cefepime 1 g in D5W 100 mL MB+ (MAXIPIME) 1 g INTRAVENOUS q 8 HR - enoxaparin 40 mg injection (LOVENOX) 40 mg SUBCUTANEOUS DAILY - docusate sodium 100 mg cap(s) (COLACE) 100 mg ORAL BID PRN - ondansetron 4 mg tab(s) (ZOFRAN) 4 mg ORAL q 6 H PRN Or - ondansetron (PF) 4 mg injection (ZOFRAN) 4 mg INTRAVENOUS q 6 H PRN - acetaminophen 650 mg tab(s) (TYLENOL) 650 mg ORAL q 6 H PRN - hydrOXYzine HCl 50 mg tab(s) (ATARAX) 50 mg ORAL q 6 H PRN - traZODone 100 mg tab(s) (DESYREL) 100 mg ORAL AT BEDTIME - vancomycin iv piggyback 1 g in D5W 200 mL (VANCOCIN) 1 g INTRAVENOUS q 8 H Lines, Drains, and Airways Line Peripheral 07/17/201999 Assessment Short Left Forearm 18 Gauge less than 1 day PHYSICAL EXAM PERFORMED: GENERAL: Alert, no distress, cooperative LUNGS: Lungs clear to auscultation CARDIAC: Normal S1 and S2; no rubs, murmurs, or gallops ABDOMEN: Abdomen soft, non-tender, BS normal, No masses. EXTREMITIES: Right antecubital fossa track rosales noted, Extremities without edema NEURO: AANDO x 3, Grossly normal cognition, motor function, sensation intact Respiratory/Nursing Documentation: O2 Therapy: Room Air (07/18/20 0807) HEMODYNAMIC DATA: Reviewed DATA: Diagnostic tests reviewed for today's visit, films/specimens were personally reviewed by me: LABS: CBC: Recent Labs 07/17/202215 WBC 15.34* HB 10.8* HCT 32.2* PLT 191 MCV 82.4 RDWCV 13.8 COAG: No results for input(s): APTT, INR in the last 168 hours. BMP: Recent Labs 07/17/202215 GLUC 111* NA 130* K 4.3 CHLOR 93* CO2 26 ANION 11 BUN 10 CREAT 0.74 CHEM: Recent Labs 07/17/202215 TPROT 7.9 CA 8.6 MG 1.8 HEPATIC: Recent Labs 07/17/202215 ALKPHOS 120* ALT 13 AST 27 TBILI 0.3 URINALYSIS:No results for input(s): PH, SPGR, UGLUC, UBILI, UKET, UHB, UPROT, UROBIL, UWBC, SSA in the last 168 hours. Invalid input(s): NITR CARDIAC: No results for input(s): CKTEST, CKMB, CKMBP in the last 168 hours.TROPONIN@:8,No results found for: BNP:8)@ No intake or output data in the 24 hours ending 07/18/20 0940 ASSESSMENT 1. Tricuspid valve Infective Endocarditis - 1 x 0.5 cm vegetation 2. IVDU (heroin) - last used morning of 07/13 Plan -Dr. Bowens personally called the [place] [facility] lab and apparently there were no cultures drawn on 07/13, the only documented blood cultures they have are from 07/15 and 07/16 which both show no growth to date -follow-up repeat blood cultures drawn on admission at [facility] on 07/17 -continue vancomycin and cefepime for now -vancomycin dosing per pharmacy -will increase cefepime dosing to 2 grams q8hrs -de-escalate antibiotics based on cultures -monitor WBC's and fever curve - last documented fever was 102 F at 2100 on 07/17 - will likely need to repeat TTE here if cannot upload images of TTE from [facility] -await recommendations from CT surgery SIGNATURE: Royal Jones DO PATIENT NAME: Khanh De La Vega DATE: July 18, 2020 TIME: 9:40 AM Pager: [phone] Normal [facility] CONSULT HNO ID: [id number] Author: Marilyn Graham Service: Pain Management Author Type: Physician Type: Consults Filed: 07/18/2020 11:35 AM Note Text: Name: KHANH DE LA VEGA Age: [age] year old PAIN MANAGEMENT: Back pain, TV endocarditis, IVDA; opiate dependent Pain Description: Patient complains of hurting in his back, head and legs. Complains of some withdrawal symptoms including feeling clammy, anxious and nausea Interval HPI: 24H Comfort Meds: Tylenol 6 and 50 mg every 6 hours as needed x1 Morphine 2 mg IV every 4 hours as needed x0 Oxycodone 5-10 mg every 6 hours as needed Trazodone 100 mg at bedtime Subjective HPI: 35-year-old male with history of active IVDA (heroin, fentanyl, methamphetamine-daily times years), hepatitis C presented to [facility] 07/13 with worsening fatigue, fevers. Patient was noted to have leukocytosis; urine drug screen positive for opiates and amphetamines. TTE demonstrated 0.5 x 1 cm tricuspid valve vegetation. Patient was started on IV vancomycin and Zosyn. He was briefly treated with Suboxone for opiate withdrawal. He was transferred to [facility] 07/17 for evaluation by CTS for possible surgery. Patient states he last used IV heroin and methamphetamine on 07/13. He was intolerant of Suboxone in the past due to GI upset. He had been on it for about 3 months 5 years ago. He has not been on methadone maintenance. He complains of back pain as well as some mild withdrawal symptoms. OARRS Review: 1 prescription [place] 5/325 #10 Current Facility-Administered Medications Medication Dose Route Frequency Provider Last Rate Last Dose - methadone 5 mg tab(s) (DOLOPHINE) 5 mg ORAL q 4 H PRN Marilyn Graham 5 mg at 07/18/20 0803 - docusate sodium 100 mg cap(s) (COLACE) 100 mg ORAL BID Amarjit (Res) MD Tere - nicotine 14 mg/24 hr 1 Patch (NICODERM) 1 Patch TRANSDERMAL DAILY Amarjit (Res) MD Tere And - [START ON 07/19/2020] nicotine -- REMOVE patch OTHER DAILY Amarjit (Rodríguez) MD Tere And - nicotine - verify patch OTHER q 8 H Amarjit (Rodríguez) MD Tere - cefepime 2 g in D5W 100 mL MB+ (MAXIPIME) 2 g INTRAVENOUS q 8 HR Stevo Bowens III - perflutren lipid microspheres 1.1 mg/mL 1.3 mL injection (DEFINITY) 1.3 mL INTRAVENOUS DIRECTED PRN Stveo Bowens III - vancomycin dosing and monitoring per pharmacy OTHER As Directed Minerva (Res) Rath - enoxaparin 40 mg injection (LOVENOX) 40 mg SUBCUTANEOUS DAILY Minerva (Res) Rath - ondansetron 4 mg tab(s) (ZOFRAN) 4 mg ORAL q 6 H PRN Minerva (Res) Rath Or - ondansetron (PF) 4 mg injection (ZOFRAN) 4 mg INTRAVENOUS q 6 H PRN Minerva (Res) Rath 4 mg at 07/17/20 2231 - acetaminophen 650 mg tab(s) (TYLENOL) 650 mg ORAL q 6 H PRN Minerva (Res) Rath 650 mg at 07/18/20 0544 - hydrOXYzine HCl 50 mg tab(s) (ATARAX) 50 mg ORAL q 6 H PRN Minerva (Res) Rath - vancomycin iv piggyback 1 g in D5W 200 mL (VANCOCIN) 1 g INTRAVENOUS q 8 H Padma Gilman (Pharmacist) 200 mL/hr at 07/18/20 0726 1 g at 07/18/20 0726 No medications prior to admission. Social History Tobacco Use - Smoking status: Current Every Day Smoker Packs/day: 1.00 Types: Cigarettes - Smokeless tobacco: Never Used Substance Use Topics - Alcohol use: Yes Comment: socially - Drug use: Yes Types: Crystal Meth, Marijuana, Heroin, Amphetamines Comment: pt does inject No family history on file. PAST SURGICAL HISTORY Procedure Laterality Date - ORTHOPEDICS SURGERY HX Right pins placed in right hand ROS: All of the following reviewed and negative except as noted below: Significant for HPI GENERAL: no fever, chills, sweats, weight loss, fatigue, generalized weakness HEENT: no headache, vision changes, eye discomfort, hearing change, ear discomfort, sinus pain, nasal discharge or congestion, oral lesions, soreness, dental problem NECK: no adenopathy, discomfort, change in ROM CHEST: no shortness of breath, dyspnea on exertion, wheezing, cough, sputum production or chest pain HEART: no chest pain, palpitations, syncope ABDOMEN: no nausea, vomiting, constipation, diarrhea, abdominal pain : no dysuria, urgency, frequency, history of stones, incontinence NEURO: no confusion or alteration in consciousness, slurred speech, seizure, focal weakness EXTREMITIES: no new pain, edema, change in ROM HEME: no new adenopathy, bruises, petechiae PSYCH: no depression, anxiety, agitation PAIN PSYCHIATRIC EXAM: GENERAL: alert, oriented to person, place, time JUDGMENT AND INSIGHT: intact APPEARANCE: neatly groomed DEMEANOR: coooperative, not hostile, mistrustful, preoccupied, or demanding ACTIVITY: normal, not hyperactive or hypoactive, no tremors, tics EYE CONTACT: normal SPEECH: normal, rate, volume, articulation, coherence, spontaneity MOOD: normal, without overt sadness, grief, anxiety, appropriate to situation IDEATION: Deferred MEMORY: intact PHYSICAL EXAMINATION: GENERAL: well nourished and developed; no acute distress; alert and oriented x 3; intact judgement and insight HEENT: no evidence of trauma; cranial nerves intact; eyes clear EOMI; no hearing deficits apparent; nasal passages unremarkable; throat and mucous membranes clear NECK: supple without lymphadenopathy; no JVD; no thyromegaly CHEST: clear bilaterally to auscultation; normal chest movement; no rales or rhonchi HEART: regular rate and rhythm, 2/6 systolic murmur ABDOMEN: soft; nondistended; bowel sounds present; no hepatomegaly; no splenomegaly; no tenderness EXTREMITIES: no evidence of clubbing; no cyanosis; no deformity; no joint effusion; no edema NEURO: cranial nerves intact; no focal deficits; no confusion; no tremor; sensorium normal SKIN: no rash; no skin breakdown; no decubitus lesions HEME: no bruising; no adenopathy PSYCH: no evidence of depression; no anxiety; no agitation; no apparent hallucinations BP 100/54 Pulse 63 Temp 36.5 ?C (97.7 ?F) (Oral) Resp 18 Ht 175.3 cm (5' 9) Wt 73.3 kg (161 lb 9.6 oz) SpO2 96% BMI 23.86 kg/m? BMI 23.86 kg/(m2) ABNORMAL/NEW FINDINGS: NONE RADIOLOGY/DIAGNOSTICS: LABORATORY: CBC: Recent Labs 07/17/20 2216 WBC 15.34* RBC 3.91* HB 10.8* HCT 32.2* PLT 191 MCV 82.4 MCH 27.6 MPV 9.6 CMP: Recent Labs 07/17/202215 NA 130* K 4.3 CHLOR 93* CO2 26 BUN 10 CREAT 0.74 GLUC 111* TPROT 7.9 CA 8.6 MG 1.8 TBILI 0.3 ALKPHOS 120* ALT 13 AST 27 ANION 11 Heme: No results for input(s): RETICP, ABSRETIC, LD, YEIMY, FE, TIBC, TRANSFERSAT in the last 24 hours. ASSESSMENT ACTIVE PROBLEM LIST Severe Episode of Recurrent Major Depressive Disorder, With Psychotic Features (Hcc) Methamphetamine Dependence (Hcc) Cannabis Dependence (Hcc) Nicotine use disorder, F17.2 Substance Induced Mood Disorder (Hcc) Substance-Induced Psychotic Disorder (Hcc) Infective Endocarditis Ivdu (Intravenous Drug User) Fever Leucocytosis Hepatitis C Antibody Positive in Blood Preoperative Testing PLAN: Patient with active IVDA (fentanyl, heroin and methamphetamine) transferred from [facility] with tricuspid valve endocarditis Ongoing fevers, leukocytosis. Patient on IV vancomycin and cefepime. Repeat blood cultures pending Await CTS and ID evaluation and recommendation Per chart, patient on brief Suboxone taper at [facility] for opiate withdrawal Patient complaining of back pain; may need further imaging to rule out discitis or osteomyelitis Diagnostic work-up pending Discontinue morphine IV and oxycodone Will allow methadone 5 mg every 4 hours as needed pain. Methadone will also assist with withdrawal symptoms Patient not interested in Suboxone; intolerant of it in the past due to GI upset Chemical dependency input Discussed with RN. Thank you for this consult Marilyn Graham MD ADDENDUM: Portions of this note were copied so as to provide important historical information essential in contributing to medical decision making today. Normal [facility] CONSULT PROGon 07-18-2020 CONSULT PROG HNO ID: [id number] Author: Fabienne Dorado (Postal Service Mail Processor) Service: Pharmacy Author Type: Pharmacist Type: Consult Progress Note Filed: 07/18/2020 8:19 AM Note Text: PHARMACY VANCOMYCIN DOSING NOTE Patient Name: Khanh De La Vega Admission Date: 07/17/2020 Date of Consult: 07/18/2020 Time of Consult: 7:16 AM Indication: Endocarditis Goal Range: 15-25 mcg/mL RECOMMENDATIONS/PLAN: Pharmacy consulted for vancomycin dosing for Khanh De La Vega, a 35 year old, male who is being treated with vancomycin for infective endocarditis. 1. Patient is currently ordered Vancomycin 1 g IV q8h. Today is day 2 of therapy. Patient received vancomycin 1 g x 1 on 07/17 so 07/18 is the first full day of therapy. 2. No vancomycin level has been drawn for this dosing regimen. 3. The present dose of vancomycin is the recommended dosage for this patient at this time. Continue therapy as prescribed. 4. The next vancomycin level has been ordered for 07/19 @ 0600 prior to 5th dose (Completed). Patient's renal function appears WNLs for age, but no clear baseline data is available. We will follow patient renal function, vancomycin levels and doses with you during the course of therapy. Additional recommendations will appear in follow up notes. If you have any questions[place] [phone]. Age: [age] year old Allergies: ALLERGIES Allergen Reactions - Penicillins Swelling - Sulfa (Sulfonamide * Swelling Last 3 Encounter Wt Readings: Date: Wt: 07/17/2020 73.3 kg (161 lb 9.6 oz) 11/23/2019 81.6 kg (180 lb) 02/25/2018 81.6 kg (180 lb) Last 1 Encounter Ht Readings: Date: Ht: 07/17/2020 175.3 cm (5' 9) CrCl: 138 mL/min Temp (24hrs), Av.7 ?C (101.6 ?F), Min:37.9 ?C (100.2 ?F), Max:39.3 ?C (102.7 ?F) - Current Temp: 37.9 ?C (100.2 ?F) Labs BUN (mg/dL) Date Value 07/17/2020 10 02/10/2018 16 04/23/2017 8 04/21/2017 10 Creatinine (mg/dL) Date Value 07/17/2020 0.74 02/10/2018 0.92 04/23/2017 0.81 04/21/2017 0.88 WBC Date Value 07/17/2020 15.34 k/uL (H) 02/10/2018 10.24 thou/cmm (H) 04/23/2017 9.9 thou/cmm 04/21/2017 9.9 thou/cmm Vancomycin Levels: No results found for: DADA Dorado, Postal Service Mail Processor [facility] CONSULT PROG HNO ID: [id number] Author: Padma Gilman (Pharmacist) Service: Pharmacy Author Type: Pharmacist Type: Consult Progress Note Filed: 07/17/2020 11:38 PM Note Text: PHARMACY VANCOMYCIN DOSING NOTE Patient Name: Khanh De La Vega Admission Date: 07/17/2020 Date of Consult: 07/17/2020 Time of Consult: 11:27 PM Indication: Endocarditis Goal Range: 15-25 mcg/mL RECOMMENDATIONS/PLAN: Pharmacy consulted for vancomycin dosing for Khanh De La Vega, a 35 year old, male who is being treated with vancomycin for endocarditis. 1. Patient is currently ordered Vancomycin 1 g IV q12h. Today is day 1 of therapy. 2. No vancomycin level has been drawn for this dosing regimen. 3. Will adjust vancomycin to 1 g with a dosing interval of q8h. The patient is of young age and goal is 15-25; lending to increased frequency of dosing. The patient received 1 gram dose 07/17/2020 @ 2308. 4. The next vancomycin level will be ordered for 07/19/2020 @ 0700 unless clinically indicated sooner. (Pharmacy will order) We will follow patient renal function, vancomycin levels and doses with you during the course of therapy. Additional recommendations will appear in follow up notes. If you have any questions[place] [phone]. Age: [age] year old Allergies: ALLERGIES Allergen Reactions - Penicillins Swelling - Sulfa (Sulfonamide * Swelling Last 3 Encounter Wt Readings: Date: Wt: 07/17/2020 73.3 kg (161 lb 9.6 oz) 11/23/2019 81.6 kg (180 lb) 02/25/2018 81.6 kg (180 lb) Last 1 Encounter Ht Readings: Date: Ht: 07/17/2020 175.3 cm (5' 9) CrCl: 138 mL/min Temp (24hrs), Av.1 ?C (102.4 ?F), Min:38.9 ?C (102 ?F), Max:39.3 ?C (102.7 ?F) - Current Temp: (!) 38.9 ?C (102 ?F) Labs BUN (mg/dL) Date Value 07/17/2020 10 02/10/2018 16 04/23/2017 8 04/21/2017 10 Creatinine (mg/dL) Date Value 07/17/2020 0.74 02/10/2018 0.92 04/23/2017 0.81 04/21/2017 0.88 WBC Date Value 07/17/2020 15.34 k/uL (H) 02/10/2018 10.24 thou/cmm (H) 04/23/2017 9.9 thou/cmm 04/21/2017 9.9 thou/cmm Vancomycin Levels: No results found for: DADA GILMAN, PHARMACIST Normal [facility] Comp Metab 2000 Pnl SerPlon 07-18-2020 Albumin [Mass/Vol] 2.5 g/dL Low 3.9-4.9 [facility] Comment on above: Order Comment: Speci men Type: BLOOD SPECIMEN Performed By: #### V ANCRA #### [facility] CLIA [id number] [address] [place] [address] ALP [Catalytic activity/Vol] 120 U/L High 38-113 [facility] Comment on above: Order Comment: Speci men Type: BLOOD SPECIMEN Performed By: #### V ANCRA #### [facility] CLIA [id number] [address] [place] [address] ALT With P-5'-P [Catalytic activity/Vol] 13 U/L Normal 10-54 [facility] Comment on above: Order Comment: Speci men Type: BLOOD SPECIMEN Performed By: #### V ANCRA #### [facility] CLIA [id number] [address] [place] [address] Anion gap [Moles/Vol] 11 mmol/L Normal 9-18 [facility] Comment on above: Order Comment: Speci men Type: BLOOD SPECIMEN Performed By: #### V ANCRA #### [facility] CLIA [id number] [address] [place] [address] AST With P-5'-P [Catalytic activity/Vol] 27 U/L Normal 14-40 [facility] Comment on above: Order Comment: Speci men Type: BLOOD SPECIMEN Performed By: #### V ANCRA #### [facility] CLIA [id number] [address] [place] [address] Bilirubin [Mass/Vol] 0.3 mg/dL Normal 0.2-1.3 [facility] Comment on above: Order Comment: Speci men Type: BLOOD SPECIMEN Performed By: #### V ANCRA #### [facility] CLIA [id number] [address] [place] [address] Calcium [Mass/Vol] 8.6 mg/dL Normal 8.5-10.2 [facility] Comment on above: Order Comment: Speci men Type: BLOOD SPECIMEN Performed By: #### V ANCRA #### [facility] CLIA [id number] [address] [place] [address] Chloride [Moles/Vol] 93 mmol/L Low 97-105 [facility] Comment on above: Order Comment: Speci men Type: BLOOD SPECIMEN Performed By: #### V ANCRA #### [facility] CLIA [id number] [address] [place] [address] CO2 [Moles/Vol] 26 mmol/L Normal 22-30 [facility] Comment on above: Order Comment: Speci men Type: BLOOD SPECIMEN Performed By: #### V ANCRA #### [facility] CLIA [id number] [address] [place] [address] Creatinine [Mass/Vol] 0.74 mg/dL Normal 0.73-1.22 [facility] Comment on above: Order Comment: Speci men Type: BLOOD SPECIMEN Performed By: #### V ANCRA #### [facility] CLIA [id number] [address] [place] [address] GFR/1.73 sq M.predicted MDRD (S/P/Bld) [Vol rate/Area] mL/min/{1.73_m2} Normal [facility] Comment on above: Order Comment: Speci men Type: BLOOD SPECIMEN Result Comment: >60 eGFR (Estimated GFR) Units of measure: mL/min/1.73 meters squared eGFR is derived from the reexpressed MDRD Study equation using the following parameters: serum creatinine, age, gender and race. The creatinine assay has been calibrated to be traceable to IDMS. An eGFR <60 mL/min/1.73m2 for >3 months is consistent with chronic kidney disease. Refer to KDOQI guidelines for clinical interpretation. In patients with unstable renal function, e.g. those with acute kidney injury, the eGFR may not accurately reflect actual GFR. Performed By: #### V ANCRA #### [facility] CLIA [id number] [address] [place] [address] Glucose [Mass/Vol] 111 mg/dL High 74-99 [facility] Comment on above: Order Comment: Speci men Type: BLOOD SPECIMEN Result Comment: The [place] Diabetes Association (ADA) provides guidance for cutoff values for fasting glucose and random glucose. The ADA defines fasting as no caloric intake for at least 8 hours. Fasting plasma glucose results between 100 to 125 mg/dL indicate increased risk for diabetes (prediabetes). Fasting plasma glucose results greater than or equal to 126 mg/dL meet the criteria for diagnosis of diabetes. In the absence of unequivocal hyperglycemia, results should be confirmed by repeat testing. In a patient with classic symptoms of hyperglycemia or hyperglycemic crisis, random plasma glucose results greater than or equal to 200 mg/dL meet the criteria for diagnosis of diabetes. Reference: Standards of Medical Care in Diabetes 2016, [employer] Diabetes Association. Diabetes Care. 2016.39(Suppl 1). Performed By: #### V ANCRA #### [facility] CLIA [id number] [address] [place] [address] Potassium [Moles/Vol] 4.3 mmol/L Normal 3.7-5.1 [facility] Comment on above: Order Comment: Speci men Type: BLOOD SPECIMEN Performed By: #### V ANCRA #### [facility] CLIA [id number] [address] [place] [address] Protein [Mass/Vol] 7.9 g/dL Normal 6.3-8.0 [facility] Comment on above: Order Comment: Speci men Type: BLOOD SPECIMEN Performed By: #### V ANCRA #### [facility] CLIA [id number] [address] [place] [address] Sodium [Moles/Vol] 130 mmol/L Low 136-144 [facility] Comment on above: Order Comment: Speci men Type: BLOOD SPECIMEN Performed By: #### V ANCRA #### [facility] CLIA [id number] [address] [place] [address] Urea nitrogen [Mass/Vol] 10 mg/dL Normal 9-24 [facility] Comment on above: Order Comment: Speci men Type: BLOOD SPECIMEN Performed By: #### V ANCRA #### [facility] CLIA [id number] [address] [place] [address] Magnesium SerPl-mCncon 07-18 Magnesium [Mass/Vol] 1.8 mg/dL Normal 1.7-2.3 [facility] Comment on above: Order Comment: Speci men Type: BLOOD SPECIMEN Performed By: #### V ANCRA #### [facility] CLIA [id number] [address] [place] [address] NUTRITIONon 07-18-2020 NUTRITION HNO ID: [id number] Author: Denis Carlton RD Service: Nutrition Therapy Author Type: Registered Dietitian Type: Nutrition Filed: 07/18/2020 11:21 AM Note Text: NUTRITION THERAPY INITIAL ASSESSMENT SERVICE DATE: 07/18/2020 SERVICE TIME: 11:17 AM Nutrition Assessment: Recommended Malnutrition Diagnosis: Mild Protein-Calorie Malnutrition In the context of: Social/Environmental Circumstance(r/t to IVDA) Based on: Insufficient Energy Intake Nutrition Diagnosis: Problem: Increased nutrient needs Related to: Acute illness As evidenced by: Medical condition(fever, infection) Estimated kilocalorie needs: [id number] Calorie Calculation Method: 25-30 kcals/kg Estimated protein needs (grams): 88-117 Grams protein determined by: 1.2-1.6 g/kg Care Plan: Continue current diet Supplements: Ensure Max 1) will start ensure max protein twice daily. RD to follow intake and adjust nutrition supplementation as needed. Active Hospital Problems Diagnosis Date Noted - Infective endocarditis 07/17/2020 - Preoperative testing 07/18/2020 [facility] Surgery Pre-Op Open Heart Check List Patient Info: Khanh De La Vega 1985 35 year old Penicillins and Sulfa (Sulfonamide Antibiotics) Pre-Op Testing: LABS: CHEMISTRY Sodium Date Value 07/17/2020 130 mmol/L 02/10/2018 138 mEq/L 04/23/2017 137 mEq/L 04/21/2017 137 mEq/L Chloride Date Value 07/17/2020 93 mmol/L 02/10/2018 110 mEq/L 04/23/2017 105 mEq/L 04/21/2017 103 mEq/L CO2 Date Value 07/17/2020 26 mmol/L 02/10/2018 24 mEq/L 04/23/2017 29 mEq/L 04/21/2017 25 mEq/L BUN (mg/dL) Date Value 07/17/2020 10 02/10/2018 16 04/23/2017 8 04/21/2017 10 Creatinine (mg/dL) Date Value 07/17/2020 0.74 02/10/2018 0.92 04/23/2017 0.81 04/21/2017 0.88 Glucose (mg/dL) Date Value 07/17/2020 111 02/10/2018 98 04/23/2017 114 04/21/2017 114 Magnesium (mg/dL) Date Value 07/17/2020 1.8 Protein, Total (g/dL) Date Value 07/17/2020 7.9 04/23/2017 7.5 04/21/2017 7.5 Calcium (mg/dL) Date Value 02/10/2018 8.8 04/23/2017 9.3 04/21/2017 9.1 Calcium, Total (mg/dL) Date Value 07/17/2020 8.6 Bilirubin, Total (mg/dL) Date Value 07/17/2020 0.3 04/23/2017 0.4 04/21/2017 0.2 Alkaline Phosphatase (U/L) Date Value 07/17/2020 120 04/23/2017 85 04/21/2017 86 ALT (U/L) Date Value 07/17/2020 13 04/23/2017 30 04/21/2017 36 AST (U/L) Date Value 07/17/2020 27 04/23/2017 26 04/21/2017 30 Anion Gap Date Value 07/17/2020 11 mmol/L 02/10/2018 7 04/23/2017 7 04/21/2017 12 { Lipid Panel No results found for: CHOL, HDL, LDL, TG NT Pro BNP No results found for: PBNP ENDOCRINE No results found for: HBA1C No results found for: [facility] RBC Date Value 07/17/2020 3.91 m/uL 02/10/2018 4.70 mil/cmm 04/23/2017 4.75 mil/cmm 04/21/2017 4.53 mil/cmm Hemoglobin (g/dL) Date Value 07/17/2020 10.8 04/17/2014 15.1 HGB (g/dL) Date Value 02/10/2018 13.6 04/23/2017 13.4 04/21/2017 12.8 Hematocrit (%) Date Value 07/17/2020 32.2 02/10/2018 40.9 04/23/2017 40.2 04/21/2017 38.8 WBC Date Value 07/17/2020 15.34 k/uL 02/10/2018 10.24 thou/cmm 04/23/2017 9.9 thou/cmm 04/21/2017 9.9 thou/cmm Platelet Count Date Value 07/17/2020 191 k/uL 02/10/2018 299 thou/cmm 04/23/2017 365 thou/cmm 04/21/2017 343 thou/cmm COAGULATION No results found for: PTSEC No results found for: INR Anemia Evaluation: Anemic: Accept Blood: Blood Conservation Committee: Ferritin: FE+TIBC: Fe Sat: FOBT: Anemia Treatment: UA pH, Urine Date Value Ref Range Status 02/10/2018 6.5 5.0 - 8.0 Final Specific [place], Ur Date Value Ref Range Status 02/10/2018 1.028 1.005 - 1.030 Final Glucose, Urine Date Value Ref Range Status 02/10/2018 NEGATIVE Negative mg/dL Final Bilirubin, Urine Date Value Ref Range Status 02/10/2018 see below (A) Negative Final Comment: Detected (Unable to confirm). Ketones, Urine Date Value Ref Range Status 02/10/2018 TRACE (A) Negative mg/dL Final Protein, Urine Date Value Ref Range Status 02/10/2018 TRACE (A) Negative mg/dL Final Nitrites Urine Date Value Ref Range Status 02/10/2018 NEGATIVE Negative Final Leukocytes Esterase Date Value Ref Range Status 02/10/2018 NEGATIVE Negative Final WBC, Urine Date Value Ref Range Status 02/10/2018 1.0 0.0 - 5.0 /hpf Final Bacteria, Urine Date Value Ref Range Status 02/10/2018 NONE None Final Type AND Screen: RBC Cross match: MRSA Screen: COVID: Chronic Lung Disease: FEVI: . DLCO: ABG: SHAKA: IMAGING/PROCEDURES CXR: Cardiac Catheterization: 2D Echo: EF: 5 Meter Walk Test: OPTIONAL TESTINGS: Carotid U/S: Lower EXT MELINA: Palmar Arch: Vein Mapping: Dental Clearance: CT Chest: Medications: Blood thinners: Patient is on following blood thinners: Beta Leroy: Last dose of beta leroy taken: Tylenol 1000 mg DOS: Neurontin 200 mg DOS: DOMINIC/ARB: Stop 24 hours preop Last dose date Steroids: Chronic Immunosuppressive drugs: Heparin stop time addressed: SGLT 2 inhibitor hold 3-4 days: Implantable Device: Turned off date: Perioperative Transfusion risk Advanced age Preoperative anemia Non-CABG surgery Preoperative anticoagulation Clotting abnormalities Female gender Small body habitus Renal insufficiency IDDM Sepsis Liver disease Post-operative Wound Healing - Vest recommended (Yes to any one of the below requires a post thorax vest) Risk Factors: Obesity DM Renal Dx COPD Bilateral OFELIA Dietitian consultation: Drinks provided (outpatient setting): CLEARANCES NEEDED Pulmonary: Hematology: Nephrology Vascular surgery Other Martín Rosas APRN.CNP - IVDU (intravenous drug user) 07/17/2020 - Fever 07/17/2020 - Leucocytosis 07/17/2020 - Hepatitis C antibody positive in blood 07/17/2020 - Nicotine use disorder, F17.2 02/17/2018 - Methamphetamine dependence (HCC) 02/11/2018 - Cannabis dependence (HCC) 02/11/2018 Monitor and Evaluation: Meet greater than 75% of estimated needs;Monitor bowel function;Monitor fluid/electrolyte balance;Monitor labs, I/Os, vital signs, weight HPI: 35 yo male presents with fatigue, opiate withdrawal syndrome, spiking fevers. Intake History: Nutrition Intake Prior to Admission: Less than 75% estimated energy needs greater than 7 days Current Diet: DIET HEART HEALTHY Anthropometrics: Height: 175.3 cm (5' 9) Weight: 73.3 kg (161 lb 9.6 oz) Dosing Weight: 73 kg (160 lb 15 oz) Body mass index is 23.86 kg/m?. Normal Weight change percentage over time: pt endorses stable wt, no changes, per chart review, suspect last recorded wt (11/17) was estimated wt, not actual. unable to determine wt change. Physical Exam: Reason NFPE not performed: Declined(pt very sleepy at visit, requesting to just sleep this am.) Potential micronutrient deficiency: Unable to determine at this time Edema/Ascites: No edema GI Symptoms: Early satiety Functional Status: Not related to malnutrition status Potential Signs of Inflammation: Leukocytosis;Hyperglyc emia;Hypoalbuminemia SIGNATURE: Denis Cralton RD, LD PATIENT NAME: Khanh De La Vega DATE: July 18, 2020 TIME: 11:17 AM PAGER: [phone] Normal [facility] PROGRESSon 07-18-2020 PROGRESS HNO ID: [id number] Author: Servando John MS Service: Hospital Medicine Author Type: ? Type: Progress Notes Filed: 07/18/2020 12:51 PM Note Text: Attestation signed by Nader Scales at 07/19/2020 8:06 AM Supervision of Medical Student Attestation Note I verified the medical student?s documentation in the medical record. Please see resident note with my attention for the day. Signature: Nader Scales DO Date: 07/19/2020 Time: 8:05 AM Pager: [phone] [facility] DAILY PROGRESS NOTE SERVICE DATE: 07/18/2020 SERVICE TIME: 12:14 PM PCP: No primary care provider on file. HPI: Mr. Khanh De La Vega is a 35 yo male with a past medical history of IVDU (last use 07/13), hepatitis C (positive antibody 11/23/19). He presented to the [facility] on 07/13/20 for chronic fatigue. While there, he had fevers to 102F, leukocytosis, and symptoms of opiate withdrawal. Blood cultures pulled on 07/13 returned negative. He had a TTE which revealed tricuspid valve vegetation 0.5x1cm and he was subsequently started on IV vancomycin and zosyn empirically for infective endocarditis. ID was consulted at [place] and they switched his antibiotics to IV vancomycin and IV cefepime. In addition, he was given a buprenorphine taper and tested negative for HIV and Hep B. He continued to spike fevers. Repeated blood cultures were drawn on 07/15 and are still pending. He was transferred to [facility] on 07/17 for evaluation by cardiac surgery for possible surgical intervention for his infective endocarditis. INTERVAL HISTORY: Patient had no acute events overnight. He received 1g IV vancomycin upon arrival to the [facility], and received 1g IV this morning. His current dose per pharmacy is 1 g IV q8h. Pharmacy is following to manage vancomycin dosing. OT evaluation completed, recommend discharge to home. ID, cardiac surgery, pain management consulted. Upon exam, he complains of generalized malaise, and subjective fevers overnight. This AM he was afebrile. He feels very constipated and complains of nonspecific abdominal pain. His last bowel movement was 07/13 and he received a dose of Colace at 9AM. ROS is otherwise negative for nausea, vomiting, diarrhea, shortness of breath, chest pain, dysuria, headache, dizziness/lightheadedn ess. MEDICATIONS: Current Facility-Administered Medications Medication Dose Route Frequency - vancomycin dosing and monitoring per pharmacy OTHER As Directed - enoxaparin 40 mg injection (LOVENOX) 40 mg SUBCUTANEOUS DAILY - ondansetron 4 mg tab(s) (ZOFRAN) 4 mg ORAL q 6 H PRN Or - ondansetron (PF) 4 mg injection (ZOFRAN) 4 mg INTRAVENOUS q 6 H PRN - acetaminophen 650 mg tab(s) (TYLENOL) 650 mg ORAL q 6 H PRN - hydrOXYzine HCl 50 mg tab(s) (ATARAX) 50 mg ORAL q 6 H PRN - vancomycin iv piggyback 1 g in D5W 200 mL (VANCOCIN) 1 g INTRAVENOUS q 8 H - methadone 5 mg tab(s) (DOLOPHINE) 5 mg ORAL q 4 H PRN - docusate sodium 100 mg cap(s) (COLACE) 100 mg ORAL BID - nicotine 14 mg/24 hr 1 Patch (NICODERM) 1 Patch TRANSDERMAL DAILY And - [START ON 07/19/2020] nicotine -- REMOVE patch OTHER DAILY And - nicotine - verify patch OTHER q 8 H - cefepime 2 g in D5W 100 mL MB+ (MAXIPIME) 2 g INTRAVENOUS q 8 HR - perflutren lipid microspheres 1.1 mg/mL 1.3 mL injection (DEFINITY) 1.3 mL INTRAVENOUS DIRECTED PRN HOME MEDICATIONS: No prescriptions on file. PHYSICAL EXAM: 07/17/20 2100 07/18/20 0400 07/18/20 0807 07/18/20 1046 BP: 110/69 111/54 100/54 Pulse: 97 64 63 Resp: 20 18 Temp: (!) 38.9 ?C (102 ?F) 37.9 ?C (100.2 ?F) 36.6 ?C (97.9 ?F) 36.5 ?C (97.7 ?F) TempSrc: Oral Oral Oral Oral SpO2: 90% 98% 96% Weight: 73.3 kg (161 lb 9.6 oz) Height: 175.3 cm (5' 9) INTAKE/OUTPUT No intake or output data in the 24 hours ending 07/18/20 1214 Physical Exam Constitutional: He is oriented to person, place, and time and well-developed, well-nourished, and in no distress. HENT: Head: Normocephalic and atraumatic. Cardiovascular: Normal rate, regular rhythm, normal heart sounds and intact distal pulses. Exam reveals no gallop and no friction rub. No murmur heard. Pulmonary/Chest: Effort normal and breath sounds normal. No respiratory distress. He has no wheezes. He has no rales. Abdominal: Soft. Bowel sounds are normal. He exhibits no distension. There is abdominal tenderness (diffuse, nonspecific). There is no rebound and no guarding. Musculoskeletal: General: No tenderness or edema. Neurological: He is alert and oriented to person, place, and time. Skin: Skin is warm and dry. No rash noted. LAB DATA: Recent Labs 07/17/20 2216 WBC 15.34* HB 10.8* HCT 32.2* PLT 191 NA 130* K 4.3 CHLOR 93* CO2 26 CREAT 0.74 BUN 10 GLUC 111* TPROT 7.9 MG 1.8 CA 8.6 ALKPHOS 120* TBILI 0.3 AST 27 ALT 13 ASSESSMENT AND PLAN: 1. 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 IVDU, polysubstance abuse - Received buprenorphine taper at OSH - Pain management following - D/c Oxycodone, Morphine - Currently receiving tylenol 650 mg PO for pain q6h PRN, methadone 5 mg PO q4h PRN - counseled to quit 3. Constipation - Hx of opioid use - last BM 07/13/20 - Currently receiving docusate 100 mg PO BID (scheduled) 4. Anxiety - Currently receiving hydroxyzine 50 mg PO q6h PRN - D/c trazodone 5. Nicotine use - placed on 14 mg patch daily - counseled to quit 6. Normocytic anemia - last Hgb 10.8 - likely 2/2 to infective endocarditis - continue to monitor 7. Hyponatremia - currently asymptomatic - continue to monitor DVT Prophylaxis: Lovenox 40 Telemetry: Currently active, will d/c in the coming days if unremarkable GI Prophylaxis: None Disposition: OT eval recommended home. Patient homeless, care management consulted. SIGNATURE: Servando John MS PATIENT NAME: Khanh De La Vega DATE: July 18, 2020 TIME: 12:14 PM Pager: Maria Esther [facility] PROGRESS HNO ID: [id number] Author: Mac Negron Service: Hospital Medicine Author Type: Resident Type: Progress Notes Filed: 07/18/2020 12:41 PM Note Text: Attestation signed by Nader Scales at 07/19/2020 8:04 AM Attending Note I personally saw and examined the patient on 07/18/20. I reviewed the resident's note. I agree with the resident's assessment and plan unless otherwise noted. Signature: Nader Scales, DO Date: 07/19/2020 Time: 8:04 AM Pager: [phone] HOUSE MEDICINE SERVICE PROGRESS NOTE SERVICE DATE: July 18, 2020 SERVICE TIME: 9:01 PM NIGHT AND WEEKEND COVERAGE: From 6 AM to 5 PM: You may reach the House Medicine sales and marketing intern currently assigned to this patient by finding their pager number on the treatment team (they will be assigned as the sales and marketing intern or resident). It is the last four digits in the phone number beginning with ([phone]). We encourage the use of Doximity Secure Chat. PCP: No primary care provider on file. Admitting Attending: Elijah Hill SUBJECTIVE Chief Complaint: Fever/ fatigue HPI: Patient is a 35 yr male who is a chronic IVDU since 2009 and Hep C positive ( antibody positive on 11/23/19), presented to the [facility] for chronic fatigue on 07/13/20. He was found to have opiate withdrawal symptoms and had spiking fevers maximum temp being 102 F, raised WBC and negative blood cultures (07/15). His urine tox was positive for opiates, amphetamines and opiates. 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 ID consultation was done and his zosyn was switched to cefepime. He was treated for b with buprenorphine which was tapered. He was found to be negative for HIV and Hep B and his WBCs started trending down, however he still spiked fevers. Repeat blood cultures on 07/15 were sent which is still pending. He was transferred to [facility] for CT surgery evaluation for possible surgery for his IE. During my encounter, patient was febrile 102 F. Complaints of global pain. He admitted to intermittent abdominal discomfort and said he had been constipated for 3 days. He denied any chest pain, palpitations, lightheadedness, or bilateral LL swelling. He said his last IVDU was on Thursday morning (07/13/20) before he presented to the hospital. He denied the use of leg veins for the same. Of note, he was covid positive on 06/29/20 however he was tested negative during his hospital admission in [place]. Interval events: The patient states he is doing ok. He admits to having fever and night sweats, and nonspecific abdominal pain attributed to constipation last bowel movement was Thursday (5 days ago). The patient denied SOB, CP, nausea, dizziness, urinary changes. Plan for today: -Continue abx - Start bowel regimen -DC trazodone -Await ID PM, and cardiothoracic surgery reccs PAST MEDICAL HISTORY Diagnosis Date - Anxiety - Depression - Paranoid schizophrenia (HCC) PAST SURGICAL HISTORY Procedure Laterality Date - ORTHOPEDICS SURGERY HX Right pins placed in right hand No family history on file. Social History Tobacco Use - Smoking status: Current Every Day Smoker Packs/day: 1.00 Types: Cigarettes - Smokeless tobacco: Never Used Substance Use Topics - Alcohol use: Yes Comment: socially - Drug use: Yes Types: Crystal Meth, Marijuana, Heroin, Amphetamines Comment: pt does inject Medications: No medications prior to admission. ALLERGIES Allergen Reactions - Penicillins Swelling - Sulfa (Sulfonamide * Swelling OBJECTIVE: Vital Signs: BP 110/69 Pulse 97 Temp (Src) 100.2 (Oral) Resp 20 Ht 5' 9 (1.75m) Wt 161 lb 9.6 oz (73.3kg) SpO2 90% BMI 23.85 kg/(m2). O2 Therapy: Room Air Physical Exam Performed: GENERAL: Alert, no distress, cooperative SKIN: Skin color, texture, turgor normal. Multiple tattoos on bilateral UL, bruises on right antecubital fossa HEAD/SINUSES: No significant findings EYES: PERRLA, EOMI EARS: External ears normal, canals clear NOSE: Nares normal. Septum midline. OROPHARYNX: Lips, mucosa, and tongue normal. Multiple teeth absent with soft gums. Oropharynx normal. NECK: No jugulovenous distention, No carotid bruits, Carotid pulse normal contour, Supple BACK: Back symmetric, Normal curvature, ROM normal, No CVAT. LUNGS: Lungs clear to auscultation, Good diaphragmatic excursion CARDIAC: Normal S1 and S2; no rubs, murmurs, or gallops ABDOMEN: Abdomen soft, Mildly tender to palpation epigastric, BS normal, No masses or organomegaly EXTREMITIES: Extremities normal, no deformities, edema, clubbing or skin discoloration. Good capillary refill., No ulcers NEURO: Gait normal. Reflexes normal and symmetric. Sensation grossly intact, Cranial nerves II-XII intact PULSES: 2+ radial, 2+ carotid Lines, Drains, and Airways Line Peripheral 07/17/201999 Assessment Short Left Forearm 18 Gauge less than 1 day Reviewed lines and needs to be continued: REASONS: Intravenous antibiotics Data: There is no new data today. WBC Date Value 07/17/2020 15.34 k/uL (H) 02/10/2018 10.24 thou/cmm (H) RBC Date Value 07/17/2020 3.91 m/uL (L) 02/10/2018 4.70 mil/cmm Hemoglobin (g/dL) Date Value 07/17/2020 10.8 (L) 04/17/2014 15.1 HGB (g/dL) Date Value 02/10/2018 13.6 (L) Hematocrit (%) Date Value 07/17/2020 32.2 (L) 02/10/2018 40.9 MCV Date Value 07/17/2020 82.4 fL 02/10/2018 87.0 fl MCH (pg) Date Value 07/17/2020 27.6 02/10/2018 28.9 MCHC Date Value 07/17/2020 33.5 g/dL 02/10/2018 33.3 % RDW-CV (%) Date Value 07/17/2020 13.8 Platelet Count Date Value 07/17/2020 191 k/uL 02/10/2018 299 thou/cmm MPV Date Value 07/17/2020 9.6 fL 02/10/2018 10.4 fl Glucose (mg/dL) Date Value 07/17/2020 111 (H) 02/10/2018 98 BUN (mg/dL) Date Value 07/17/2020 10 02/10/2018 16 Creatinine (mg/dL) Date Value 07/17/2020 0.74 02/10/2018 0.92 Sodium Date Value 07/17/2020 130 mmol/L (L) 02/10/2018 138 mEq/L Potassium Date Value 07/17/2020 4.3 mmol/L 02/10/2018 3.4 mEq/L (L) Chloride Date Value 07/17/2020 93 mmol/L (L) 02/10/2018 110 mEq/L (H) CO2 Date Value 07/17/2020 26 mmol/L 02/10/2018 24 mEq/L Protein, Total (g/dL) Date Value 07/17/2020 7.9 04/23/2017 7.5 Albumin (g/dL) Date Value 04/23/2017 3.5 Calcium (mg/dL) Date Value 02/10/2018 8.8 Calcium, Total (mg/dL) Date Value 07/17/2020 8.6 Alkaline Phosphatase (U/L) Date Value 07/17/2020 120 (H) 04/23/2017 85 Bilirubin, Total (mg/dL) Date Value 07/17/2020 0.3 04/23/2017 0.4 AST (U/L) Date Value 07/17/2020 27 04/23/2017 26 ALT (U/L) Date Value 07/17/2020 13 04/23/2017 30 URINALYSIS Specific [place], Ur Date Value Ref Range Status 02/10/2018 1.028 1.005 - 1.030 Final Glucose, Urine Date Value Ref Range Status 02/10/2018 NEGATIVE Negative mg/dL Final Bilirubin, Urine Date Value Ref Range Status 02/10/2018 see below (A) Negative Final Comment: Detected (Unable to confirm). Ketones, Urine Date Value Ref Range Status 02/10/2018 TRACE (A) Negative mg/dL Final Protein, Urine Date Value Ref Range Status 02/10/2018 TRACE (A) Negative mg/dL Final Urobilinogen, Urine Date Value Ref Range Status 02/10/2018 1.0 0.0 - 1.0 EU/dL Final WBC, Urine Date Value Ref Range Status 02/10/2018 1.0 0.0 - 5.0 /hpf Final Assessment/Plan Problem List Methamphetamine dependence (HCC) Cannabis dependence (HCC) Nicotine use disorder, F17.2 Infective endocarditis IVDU (intravenous drug user) Fever Leucocytosis Hepatitis C antibody positive in blood Active Problems: Infective endocarditis likely due to IVDU Fever Leucocytosis - Chronic IVDU since 2009 - TTE done in outside hospital showed : tricuspid valve vegetation 1 X 0.5 cm - Multiple spikes of fever max temp of 102 F - Raised WBC 14 k on discharge from outside hospital - Blood cultures on 07/13 during admission negative and repeat blood cultures on 07/15 pending - Continue IV Vancomycin and Cefepime empirically - Transferred to [facility] for CT surgery consult for possible surgery - Blood cultures repeated on 07/17, follow up - EKG - ID consulted, appreciate recommendations - CT surgery consulted, appreciate recommendations - Trend WBCs 07/18/20 15.34 - Monitor Hemodynamics Chronic IVDU / Polysubstance abuse: - Was on buprenorphine taper in the outside hospital - Placed on tylenol for mild pain - DC Oxycodone IR - DC Morphine - Pain management consultation done. Started Methadone. - Hydroxyzine q6h Prn for anxiety - Counseled to quit Constipation -Likely 2/2 to chronic opioid use. -dc morphine and oxycodone -Started on docusate Hyponatremia - 130 on admission. Asymptomatic - Continue to monitor. Normocytic anemia in the setting of Endocarditis -Hgb 10.8 -MCV 82.4 - Monitor labs and symptoms Nicotine use disorder - Placed on Nicotine patch 14mg - counseled to quit Disposition - Patient is homeless - OT/PT eval : dispo: Home - family independence case manager consult Medication and Non-Pharmacologic VTE Prophylaxis/Anticoagul ants Anticoagulant AND Antiplatelet Medications (From admission, onward) Start Dose Route Frequency Ordered Stop 07/17/202099 enoxaparin 40 mg injection (LOVENOX) (Medical Risk Categories) 40 mg SUBCUTANEOUS DAILY 07/17/202044 -- 07/17/202044 pneumatic compression stockings (ct,mi) 07/17/202044 activity - mobilize patient (ct,oh) VTE Prophylaxis: VTE prophylaxis appropriate GI Prophylaxis: Not indicated Telemetry: Not indicated Disposition: To be determined Code Status: Not on file Plan of care discussed with: Provider, RN, Patient SIGNATURE: Mac negron DO PATIENT NAME: Khanh De La Vega DATE: July 18, 2020 TIME: 9:01 PM Normal [facility] Phosphate SerPl-mCncon 07-18 Phosphate [Mass/Vol] 3.9 mg/dL Normal 2.7-4.8 [facility] Comment on above: Order Comment: Speci men Type: BLOOD SPECIMEN Performed By: #### V ANCRA #### [facility] CLIA [id number] [address] [place] [address] THERAPY NTon 07-18-2020 THERAPY NT HNO ID: [id number] Author: Magaly (Pt) Ronald Service: Physical Therapy Author Type: Physical Therapist Type: Therapy (PT/OT/Speech/Resp) Filed: 07/18/2020 3:48 PM Note Text: Physical Therapy Evaluation SERVICE DATE: 07/18/2020 SERVICE TIME: 1520 to 1530 ROOM: [place] [address] Recommended Discharge Disposition: Home Recommended Discharge Disposition Comments: Khanh was able to get in and out of bed without difficulty; he ambulated without path deviation or SOB Anticipated Discharge Needs: Physical Assist at Home;Supervision at Home Physical Assist at Home for: Cleaning;Laundry;Meals ;Shopping;Transportati on Supervision at Home due to: (change in medical status) PT 6 Clicks Score: 24 Precautions/Activity Restrictions: Lines/Tubes/Drains Current Hospital Course: Pt initially at [facility] 07/13 with fatigue--developed a fever--had GRICELDA and shown to have infective endocarditits (tricuspid valve vegitation)--transferr ed to [facility] 07/17 Reason for Hospital Admission: infective endocarditis Relevant Past Medical History: major depressive disorder with psychotic features, substance induced mood disorder, hepatitis C antibody positive in blood Response to Therapy Interventions: Limited participation Treatment Interventions: Education Home Environment Patient Lives With: Self/Alone(pt reports that he lives in an apt) Assistance Available: shift supervisor melting(family and friends ) Entry To Home: Stairs Number Of Stairs Into Home: 12 Number Of Stairs To Bed/Bath: 0 Tub/Shower Type: tub shower Laundry: completes at laundry mat Equipment Owned: (none) Prior Functional Level: Within Functional Limits Prior Functional Level Comments: Pt stated that he was independent in all areas of ADL's and IADL's. Pt stated that he is unable to drive but rides his bike or walks for transportation Patient Report: reports being cold--wants another heated blanket once back in bed CURRENT FUNCTIONAL STATUS: Most recent performance Current Functional Mobility Assist Level Additional Information Rolling Supine to Sit Stand By Assistance Sit to Supine Stand By Assistance Scooting Sit to Stand Stand By Assistance Stand to Sit Stand By Assistance Bed to Chair Toilet/Commode Gait Stand By Assistance;Additional Information Gait Device: None Gait Distance (feet): 20x2 pt appears annoyed by evaluation--got OOB quickly (instruct to slow down because connected to IV) and walked across room Stairs Curb Step Car Transfer Range of Motion: WFL Strength: WFL JH-HLM: 7: Walk 25 feet or more Learning/Educational Needs: Discharge Plan;Functional Activities/Mobility;Pl an of Care;Precautions;Safet y Mini Cog Score: 2 (07/18/20 0823) Goals for Plan of Care: Patient /Caregiver Goals: Go Home Patient will be discontinued from Physical Therapy when no further skilled needs are identified in this setting. PLAN: Treatment Frequency (times per week): Discontinue Therapy Services Reasons Therapy Services Discontinued: No skilled needs Plan of Care developed with: Patient TREATMENT INTERVENTIONS: Therapy Diagnosis: Reduced mobility-other Interventions Provided: Evaluation $ Evaluation-Low (59329) Billed Units: 1 unit Encouraged mobility while in hospital to avoid deconditioning Training AND education provided in: Benefits of in-hospital mobility, Role of Physical Therapy The following therapeutic skills were used: Activity dosing Total Treatment Time (minutes): 10 Please see discipline specific clinical documentation flowsheet for complete details for this therapy evaluation/treatment. SIGNATURE: Magaly Cardenas PT PATIENT NAME: Khanh De La Vega DATE: July 18, 2020 TIME: 3:47 PM Normal [facility] THERAPY NT HNO ID: [id number] Author: Jany Mcginnis/Navi Ibarra Service: Occupational Therapy Author Type: Occupational Therapist Type: Therapy (PT/OT/Speech/Resp) Filed: 07/18/2020 9:13 AM Note Text: Occupational Therapy Evaluation SERVICE DATE: 07/18/2020 SERVICE TIME: 08 to 0840 ROOM: [id number] Recommended Discharge Disposition: Home Recommended Discharge Disposition Comments: Pt is currently functioning close to baseline. Pt stated that he has a short term memory loss. Stated that if he needs anything, he has friends or family that can help him Anticipated Discharge Needs: Undetermined OT 6 Clicks Score: 22 Precautions/Activity Restrictions: Lines/Tubes/Drains Current Hospital Course: Pt admitted on 07/17/2020 after present to hospital with fatigue. Pt has withdrawl symptoms and had opioids in system. Pt underwent a TTE which showed tricuspid valve vegitation. Reason for Hospital Admission: infective endocarditis Relevant Past Medical History: major depressive disorder with psychotic features, substance induced mood disorder, hepatitis C antibody positive in blood Response to Therapy Interventions: Good participation in activities, Needs frequent redirection or re-instruction Continue skilled needs due to: Cognitive deficits Occupational Therapy Problem List: Cognitive Deficit;Safety Deficits;Impaired Self Care;Decreased Activity Tolerance Cognition/Communicatio n Deficits Responsiveness: Alert, Awake Follows Commands: 2-step Commands, Cueing Needed Cueing to Follow Commands: Moderate Memory Deficits: Short Term Executive Function Deficits: Judgement, Insight to Deficits, Safety Awareness Judgement Deficit: Moderate impairment Insight to Deficits: Moderate impairment Safety Awareness Deficit: Minimal impairment Cognitive Clinical Tests and Screens: Mini Cog Clock Draw Test: 2-Normal Word Recall: 0-recalled words Mini Cog Score: 2 Treatment Interventions: Self Care / Home Management;Education Home Environment Patient Lives With: Self/Alone Assistance Available: shift supervisor melting(family and friends ) Entry To Home: Stairs Number Of Stairs Into Home: 12 Number Of Stairs To Bed/Bath: 0 Tub/Shower Type: tub shower Laundry: completes at laundry mat Equipment Owned: (none) Prior Functional Level: Within Functional Limits Prior Functional Level Comments: Pt stated that he was independent in all areas of ADL's and IADL's. Pt stated that he is unable to drive but rides his bike or walks for transportation Patient Report: Pt was pleasant and agreeable to evaluation CURRENT FUNCTIONAL STATUS: Most recent performance Current Activities of Daily Living Assist Level Additional Information Feeding Independent Grooming Stand By Assistance Bathing Upper Body Stand By Assistance Bathing Lower Body Stand By Assistance Dressing Upper Body Independent Dressing Lower Body Independent Toileting Independent Instrumental Activities of Daily Living Assist Level Additional Information Meal/Beverage Prep Cleaning Laundry Medication Management with Strategies Functional Mobility Assist Level Additional Information Rolling Independent Supine to Sit Independent Sit to Supine Independent Scooting Stand By Assistance Sit to Stand Contact Guard Assistance Stand to Sit Contact Guard Assistance Bed to Chair Toilet/Commode Contact Guard Assistance Functional Mobility Contact Guard Assistance (gait belt ) Blank rojas indicate activity not attempted Hand Dominance: Left Range of Motion: WFL Strength: WFL Balance: Static Sitting;Dynamic Sitting;Static Standing;Dynamic Standing Static Sitting Balance: Good Patient able to maintain balance without handhold support, limited postural sway Dynamic Sitting Balance: Good Patient accepts moderate challenge, able to maintain balance while picking up object off floor Static Standing Balance: Good Patient able to maintain balance without handhold support, limited postural sway Dynamic Standing Balance: Good Patient accepts moderate challenge, able to maintain balance while picking up object off floor Activity Tolerance: Sitting Activity;Standing Activity Sitting Activity: bed mobility, lower body dressing, Sitting Activity Tolerance (in minutes): 5 Standing Activity: ambulating to bathroom, sit to stand transfer, completing ADL's sinkside Standing Activity Tolerance (in minutes): 5 Learning/Educational Needs: Discharge Plan;Functional Activities/Mobility;Se lf Care;Safety Goals for Plan of Care: Patient /Caregiver Goals: Go Home Upper Body Bathing with: Independent Lower Body Bathing with: Independent Lower Body Dressing with: Independent Chair Transfer with: Independent Toilet Transfer with: Independent Tolerate (minutes of functional activity): 25 Functional Activity with: Independent Additional Goal 1: Pt will follow 3-step commands 100% time Rehab Potential: Good Patient will be discontinued from Occupational Therapy when no further skilled needs are identified in this setting. PLAN: Treatment Frequency (times per week): 3(1-3 x/wk) Current admission Plan of Care developed with: Patient TREATMENT INTERVENTIONS: Therapy Diagnosis: Decreased activities of daily living (ADL);General symptoms and signs-other Interventions Provided: Evaluation $ Evaluation-Moderate (37879) Billed Units: 1 unit Pt currently functioning close to baseline. PT stated that he has short term memory loss but stated that he does not need any additional assistance with it. Pt educated to use grab bars when sitting down on toilet when dizzy. Pt was tasked with completing a two step task sink side of oral care then washing face. Pt required a verbal cue to prompt to second task. Training AND education provided in: Bed mobility, Benefits of in-hospital mobility, Grooming tasks, Lower extremity dressing, Role of Occupational Therapy, Standing balance to improve independence with ADLs/self-care, Transfer Training - Sit to stand, Transfer Training ? Toilet/commode The following therapeutic skills were used: Activity dosing, Cuing verbal, Cuing tactile Total Treatment Time (minutes): 17 Please see discipline specific clinical documentation flowsheet for complete details for this therapy evaluation/treatment. SIGNATURE: Diego Gonzalez/OT PATIENT NAME: Khanh De La Vega DATE: July 18, 2020 TIME: 8:56 AM I reviewed and agree with the documentation corresponding to this therapy visit. SIGNATURE: LUDIVINA Garber/Sabrina DATE: July 18, 2020 TIME: 9:13 AM Evaluation and/or treatment directly supervised by licensed Occupational Therapist. Normal [facility] HISTORY PHYSICALon 0 HISTORY PHYSICAL HNO ID: [id number] Author: Minerva Ji Service: Hospital Medicine Author Type: Resident Type: HANDP Filed: 07/17/2020 9:59 PM Note Text: Attestation signed by Elijah Hill at 07/18/2020 6:33 PM Attending Note I discussed with resident. The patient was not examined by the attending. I reviewed the resident's note. I agree with the resident's assessment and plan unless otherwise noted. Signature: Elijah Hill MD Date: 07/18/2020. Time: 6:33 PM [facility] HISTORY AND PHYSICAL SERVICE DATE: July 17, 2020 SERVICE TIME: 9:01 PM NIGHT AND WEEKEND COVERAGE: From 6 AM to 5 PM: You may reach the House Medicine sales and marketing intern currently assigned to this patient by finding their pager number on the treatment team (they will be assigned as the sales and marketing intern or resident). It is the last four digits in the phone number beginning with ([phone]). We encourage the use of Doximity Secure Chat. PCP: No primary care provider on file. Admitting Attending: Elijah Hill SUBJECTIVE Chief Complaint: Fever/ fatigue HPI: Patient is a 35 yr male who is a chronic IVDU since 2009 and Hep C positive ( antibody positive on 11/23/19), presented to the [facility] for chronic fatigue on 07/13/20. He was found to have opiate withdrawal symptoms and had spiking fevers maximum temp being 102 F, raised WBC and negative blood cultures (07/15). His urine tox was positive for opiates, amphetamines and opiates. 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 ID consultation was done and his zosyn was switched to cefepime. He was treated for opioid withdrawal with buprenorphine which was tapered. He was found to be negative for HIV and Hep B and his WBCs started trending down, however he still spiked fevers. Repeat blood cultures on 07/15 were sent which is still pending. He was transferred to [facility] for CT surgery evaluation for possible surgery for his IE. During my encounter, patient was febrile 102 F. He stated that he was hurting on his neck, back and legs, however there was no point tenderness. He admitted to intermittent abdominal discomfort and said he had been constipated for 3 days. He denied any chest pain, palpitations, lightheadedness, or bilateral LL swelling. He said his last IVDU was on Thursday morning (07/13/20) before he presented to the hospital. He denied the use of leg veins for the same. Of note, he was covid positive on 06/29/20 however he was tested negative during his hospital admission in [place]. His labs during discharge from [facility]: Na/K: 132/4.5, Creatinine: 0.95 Hb: 10.3, WBC 14K and Platelets: 170 BG 111 Review of Systems: GENERAL: No weight loss, malaise Positive for fever HEENT: Negative for frequent or significant headaches, No changes in hearing or vision, no nose bleeds or other nasal problems NECK: Negative for lumps, goiter, pain and significant neck swelling RESPIRATORY: Negative for cough, hemoptysis, wheezing, COPD, dyspnea or shortness of breath CARDIOVASCULAR: Negative for chest pain, leg swelling, hypertension, CHF or palpitations GI: No nausea, vomiting, or diarrhea MUSCULOSKELETAL: Negative for joint pain or swelling, back pain or muscle pain SKIN: Negative for lesions, rash, and itching PSYCH: Negative for sleep disturbance, mood disorder and recent psychosocial stressors NEURO: No history of headaches, syncope, paralysis, seizures or tremors PAST MEDICAL HISTORY Diagnosis Date - Anxiety - Depression - Paranoid schizophrenia (HCC) PAST SURGICAL HISTORY Procedure Laterality Date - ORTHOPEDICS SURGERY HX Right pins placed in right hand No family history on file. Social History Tobacco Use - Smoking status: Current Every Day Smoker Packs/day: 1.00 Types: Cigarettes - Smokeless tobacco: Never Used Substance Use Topics - Alcohol use: Yes Comment: socially - Drug use: Yes Types: Crystal Meth, Marijuana, Heroin, Amphetamines Comment: pt does inject Medications: No medications prior to admission. ALLERGIES Allergen Reactions - Penicillins Swelling - Sulfa (Sulfonamide * Swelling OBJECTIVE: Vital Signs: BP 115/71 Pulse 98 Temp (Src) 102.7 (Oral) Resp 20 SpO2 95% O2 Therapy: Room Air Physical Exam Performed: GENERAL: Alert, no distress, cooperative SKIN: Skin color, texture, turgor normal. Multiple tattoos on bilateral UL, bruises on right antecubital fossa HEAD/SINUSES: No significant findings EYES: PERRLA, EOMI EARS: External ears normal, canals clear NOSE: Nares normal. Septum midline. OROPHARYNX: Lips, mucosa, and tongue normal. Multiple teeth absent with soft gums. Oropharynx normal. NECK: No jugulovenous distention, No carotid bruits, Carotid pulse normal contour, Supple BACK: Back symmetric, Normal curvature, ROM normal, No CVAT. LUNGS: Lungs clear to auscultation, Good diaphragmatic excursion CARDIAC: Normal S1 and S2; no rubs, murmurs, or gallops ABDOMEN: Abdomen soft, non-tender, BS normal, No masses or organomegaly EXTREMITIES: Extremities normal, no deformities, edema, clubbing or skin discoloration. Good capillary refill., No ulcers NEURO: Gait normal. Reflexes normal and symmetric. Sensation grossly intact, Cranial nerves II-XII intact PULSES: 2+ radial, 2+ carotid Lines, Drains, and Airways None Reviewed lines and needs to be continued: REASONS: Intravenous antibiotics Data: There is no new data today. Patient discussed with Elijah Hill Assessment/Plan Problem List Methamphetamine dependence (HCC) Cannabis dependence (HCC) Nicotine use disorder, F17.2 Infective endocarditis IVDU (intravenous drug user) Fever Leucocytosis Hepatitis C antibody positive in blood Active Problems: Infective endocarditis likely due to IVDU Fever Leucocytosis - Chronic IVDU since 2009 - TTE done in outside hospital showed : tricuspid valve vegetation 1 X 0.5 cm - Multiple spikes of fever max temp of 102 F - Raised WBC 14 k on discharge from outside hospital - Blood cultures on 07/13 during admission negative and repeat blood cultures on 07/15 pending - Started on IV Vancomycin and Cefepime empirically - Transferred to [facility] for CT surgery consult for possible surgery - Repeat blood cultures sent on admission 07/17, to be followed - Continue the antibiotics - EKG - ID consulted - CT surgery consulted - Trend WBCs - Monitor Hemodynamics Chronic IVDU / Polysubstance abuse: - Was on buprenorphine taper in the outside hospital - Placed on tylenol for mild pain Oxycodone IR for moderate and eternal pain Morphine q4h for breakthrough pain - Pain management consultation done - Hydroxyzine q6h Prn for anxiety - Counseled to quit Nicotine use disorder - Placed on Nicotine patch 21mg - counseled to quit Disposition - Patient is homeless - OT/PT eval - family independence case manager consult Medication and Non-Pharmacologic VTE Prophylaxis/Anticoagul ants Anticoagulant AND Antiplatelet Medications (From admission, onward) Start Dose Route Frequency Ordered Stop 07/17/202099 enoxaparin 40 mg injection (LOVENOX) (Medical Risk Categories) 40 mg SUBCUTANEOUS DAILY 07/17/202044 -- 07/17/202044 pneumatic compression stockings ([place] 07/17/202044 activity - mobilize patient ([place]) VTE Prophylaxis: VTE prophylaxis appropriate GI Prophylaxis: Not indicated Telemetry: Not indicated Disposition: To be determined Code Status: Not on file Plan of care discussed with: Provider, RN, Patient SIGNATURE: Minerva Ji MD PATIENT NAME: Khanh De La Vega DATE: July 17, 2020 TIME: 9:01 PM Normal [facility] CONSULTon 11-23-2019 CONSULT HNO ID: [id number] Author: Heath Lopez Service: Vascular Surgery Author Type: Physician Type: Consults Filed: 12/28/2019 12:01 PM Note Text: Consult: VASCULAR SURGERY SERVICE SERVICE DATE: 11/23/2019 SERVICE TIME: 11:44 AM REASON FOR CONSULT: cold limb REQUESTING PHYSICIAN: ED physician PRIMARY CARE PHYSICIAN: No primary care provider on file. Subjective Mr. De La Vega is a 34 year old male with past medical history significant for anxiety, depression, paranoid schizophrenia. This is a homeless man that has extensive use of IV drug abuse. His drug of choice R heroin, and amphetamines. His last use was yesterday midmorning and the route was IV in his right antecubital fossa. He denies ever using an leg veins. He also describes going to a [employer] party and taking too much fentanyl and passing out, and then waking up in a location that was unknown to him. The reason he went to an [facility] ED is because he woke up with cramping, calf pain on his right. He has never had this pain before, it is described as dull and achy, there is no radiation and pain, and there are no other symptoms associated with this. He has never had this happen before. The [facility] ED worked him up with a bedside ultrasound, which was inconclusive and negative for DVT. They also obtained a CT with IV contrast of the lower extremity versus CTA of the lower extremity which showed three-vessel runoff to the right lower extremity. Positive for pain on dorsiflexion and squeezing of calf. PAST MEDICAL HISTORY Diagnosis Date - Anxiety - Depression - Paranoid schizophrenia (HCC) PAST SURGICAL HISTORY Procedure Laterality Date - ORTHOPEDICS SURGERY HX Right pins placed in right hand No family history on file. Social History Tobacco Use - Smoking status: Current Every Day Smoker Packs/day: 1.00 Types: Cigarettes - Smokeless tobacco: Never Used Substance Use Topics - Alcohol use: Yes Comment: socially - Drug use: Yes Types: Crystal Meth, Marijuana, Heroin, Amphetamines Comment: pt does inject (Not in a hospital admission) No current facility-administered medications for this encounter. Allergies As of Date: 11/23/2019 Allergen Noted Reaction PENICILLINS 12/14/2017 Swelling SULFA (SULFONAMIDE ANTIBIOTICS) 12/14/2017 Swelling Fully Assessed 02/25/2018 COMPLETE REVIEW OF SYSTEMS: See HPI for pertinent ROS Objective PHYSICAL EXAM: Physical Exam Performed: Physical Exam Constitutional: He is oriented to person, place, and time and well-developed, well-nourished, and in no distress. No distress. HENT: Head: Normocephalic and atraumatic. Mouth/Throat: No oropharyngeal exudate. Rash b/l in perinasal region Eyes: Pupils are equal, round, and reactive to light. Conjunctivae and EOM are normal. Right eye exhibits no discharge. Left eye exhibits no discharge. No scleral icterus. Neck: Normal range of motion. No tracheal deviation present. No thyromegaly present. Cardiovascular: Normal rate, regular rhythm and intact distal pulses. Exam reveals no gallop and no friction rub. No murmur heard. Pulses: Popliteal pulses are 2+ on the right side and 2+ on the left side. Dorsalis pedis pulses are 2+ on the right side and 2+ on the left side. Posterior tibial pulses are 2+ on the right side and 2+ on the left side. Pulmonary/Chest: Effort normal. No stridor. No respiratory distress. Abdominal: He exhibits no distension. Musculoskeletal: Normal range of motion. General: No deformity or edema. Neurological: He is alert and oriented to person, place, and time. No cranial nerve deficit. GCS score is 15. Skin: Skin is warm and dry. Rash (as described in HEENT) noted. He is not diaphoretic. No erythema. No pallor. Psychiatric: Mood, memory, affect and judgment normal. Nursing note and vitals reviewed. BP 130/82 Pulse 87 Temp (Src) 98.1 (Oral) Resp 26 Ht 5' 9 (1.75m) Wt 180 lb (81.6kg) SpO2 99% BMI 26.57 kg/(m2). 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 I reviewed the resident's note. I agree with the resident's assessment and plan unless otherwise noted. Additional attestation provided elsewhere in this patient's record SIGNATURE: Bernardo Childress DO PATIENT NAME: Khanh De La Vega DATE: November 23, 2019 TIME: 11:44 AM PAGER: see below [facility] ECG COMPLETEon 11-23-2019 ECG COMPLETE NAME : KHANH DE LA VEGA PID : [id number] : 1985 Gender : Male Race : ORD : [id number] Procedure Date : Nov 23 2019 08:40:19 Edit Date : Nov 24 2019 18:01:09 Diagnosis:NORMAL SINUS RHYTHM NORMAL ECG NO PREVIOUS ECGS AVAILABLE Confirmed by DO TAMEZ CHRIS ([id number]) on 11/24/2019 6:01:07 PM Ventricular Rate : 85 BPM Atrial Rate : 85 BPM P-R Interval : 128 ms QRS Duration : 90 ms Q-T Interval : 352 ms QTC Calculation(Bazett) : 418 ms P [place] : 21 degrees R [place] : -29 degrees T [place] : 12 degrees Test Reason : Chest Pain Location : 4 : AKED 8 Overread By : DO TAMEZ CHRIS Edited By : DO TAMEZ CHRIS Referred By : , Acquired by : GRETCHEN NATH [facility] ED NOTEon 11-23-2019 ED NOTE HNO ID: [id number] Author: Lisa (Rn) INDY Solorzano Service: Emergency Medicine Author Type: Registered Nurse Type: ED Notes Filed: 11/23/2019 11:18 AM Note Text: Report Given to INDY Woodward [facility] ED NOTE HNO ID: [id number] Author: Jory IrahetaRn) INDY Howell Service: Emergency Medicine Author Type: Registered Nurse Type: ED Notes Filed: 11/23/2019 10:58 AM Note Text: US called, aware pt is ready [facility] ED NOTE HNO ID: [id number] Author: Tatyana IrahetaRn) INDY Balderrama Service: Emergency Medicine Author Type: Registered Nurse Type: ED Notes Filed: 11/23/2019 10:07 AM Note Text: Vascular at bedside [facility] ED NOTE HNO ID: [id number] Author: Lisa IrahetaRn) INDY Solorzano Service: Emergency Medicine Author Type: Registered Nurse Type: ED Notes Filed: 11/23/2019 8:52 AM Note Text: PT PLACED ON EDIPHONE OPERATOR FOR CLINICAL MONITORING [facility] ED NOTE HNO ID: [id number] Author: Fabienne IrahetaRn) INDY Thompson Service: ? Author Type: Registered Nurse Type: ED Notes Filed: 11/23/2019 8:38 AM Note Text: Bed: 08ED Expected date: Expected time: Means of arrival: Comments: [place]; vascular [facility] ED NOTE HNO ID: [id number] Author: Lisa IrahetaRn) INDY Solorzano Service: Emergency Medicine Author Type: Registered Nurse Type: ED Notes Filed: 11/23/2019 8:52 AM Note Text: Pt was sent from [facility] on heparin drip 1000units per hour. [facility] ED PROV NOTEon 11-23-2019 ED PROV NOTE HNO ID: [id number] Author: Laura Weeks MD Service: Emergency Medicine Author Type: Physician Type: ED Provider Notes Filed: 11/23/2019 4:29 PM Note Text: Brief HPI: Khanh De La Vega is a 34 year old male with a PMH as documented below who presents for evaluation of claudication and potential vascular occlusion. The patient reports pain in his calf in the plantar aspect of the foot. He is seen at an outside hospital and was they're concerned for delayed cap refill and a cool foot. He had a CTA of the right leg which showed slightly delayed. Contrast enhancement of the right anterior tibial and posterior as well as peroneal arteries compared to those the left are delayed. He does have abnormal contrast enhancement or not possible with no evidence for stenosis or occlusion. The patient denies fever or chills. Denies chest pain and shortness of breath. He denies night sweats or rash. His history of IV drug use. He denies back pain. Denies bowel or bladder incontinence. He denies trauma or injury. PAST MEDICAL HISTORY Diagnosis Date - Anxiety - Depression - Paranoid schizophrenia (HCC) Constitutional: Nontoxic, well-appearing without any respiratory distress. HEENT: Mucous membranes moist. Neck: Supple. Normal range of motion. Cardiovascular: Heart is regular rate and rhythm without murmurs, rubs or gallops. Pulmonary: Lungs clear to auscultation bilaterally without wheezes, rhonchi as well as rales. Gastrointestinal: Abdomen soft, nontender, nondistended with normal active bowel sounds. No rebound, guarding or peritoneal signs. Genitourinary: No CVA tenderness. Muscle skeletal: Moves all extremities equally and normally. Patient has tenderness at the right calf and plantar aspect of the right foot. He can flex and extend at the hip and ankle with normal strength. Foot is warm and pink. DP pulse is 2+. Cap refill less than 2 seconds in the distal digits. He states the sensation is slightly difference between the left and right leg. MDM: The patient with a good pulse the right lower extremity. He is afebrile and nontoxic and well-appearing. Vascular surgery consult. Vascular surgery requested ultrasound which was negative for DVT. The patient again with a good pulse sensation and motor throughout the right lower extremity. At this time, they feel is safe for discharge. Return precautions given. Discussed importance of close follow-up as well. He verbalized understanding. See resident/PA note for disposition details Laura Weeks MD 11/23/19 1629 Normal [facility] ED PROV NOTE HNO ID: [id number] Author: Royal Mccoy MD Service: Emergency Medicine Author Type: Resident Type: ED Provider Notes Filed: 11/30/2019 12:53 PM Note Text: Attestation signed by Laura Weeks MD at 12/01/2019 6:50 AM Attending Note I evaluated the patient and personally participated in the izaguirre components. I agree with the resident's findings and plan as documented and have discussed the case and management of the patient's care with the resident. Signature: Laura Weeks MD Date: 12/01/2019 Time: 6:50 AM ED Provider Note Patient Name: Khanh De La Vega SERVICE DATE: 11/23/19 History No chief complaint on file. HPI The patient is a 34-year-old male with a past medical history of paranoid schizophrenia who presents to the ED after being seen at [place] with concern for vascular ischemia. At time of presentation at [place], patient's right lower extremity was noted to be cool to the touch. There is sluggish capillary refill. Patient was endorsing pain, however had palpable pulses DP, PT, popliteal. Bedside ultrasound at that facility did not reveal any DVTs, CTA did reveal slightly decreased contrast uptake in the distal right lower extremity. With concern for vascular ischemia, patient was transferred here for vascular surgery consult. Patient was given heparin. At the time of presentation here, patient's right lower extremity is no longer cool to the touch nor pale. Patient still endorsing some pain in that extremity. Patient is able to move it well. Patient denying numbness, tingling. Patient does endorse IV drug use, most recently used 2 days ago heroin. Denies IV drug use in his lower extremities. Denies chest pain, fevers, chills, shortness of breath, abdominal pain, nausea, vomiting. No other complaints at this time. PAST MEDICAL HISTORY Diagnosis Date - Anxiety - Depression - Paranoid schizophrenia (HCC) No past surgical history on file. No family history on file. Social History Tobacco Use - Smoking status: Current Every Day Smoker Packs/day: 1.00 Types: Cigarettes - Smokeless tobacco: Never Used Substance and Sexual Activity - Alcohol use: No Comment: socially - Drug use: Yes Types: Crystal Meth, Marijuana Comment: pt states he has been sober for 2 days 02/10/2018 - Sexual activity: Not on file ALLERGIES Allergen Reactions - Penicillins Unknown - Sulfa (Sulfonamide * Unknown Review of Systems Constitutional: Negative for chills, diaphoresis, fatigue and fever. HENT: Negative for facial swelling, rhinorrhea and sore throat. Eyes: Negative for pain, discharge and redness. Respiratory: Negative for cough, shortness of breath and wheezing. Cardiovascular: Positive for leg swelling. Negative for chest pain and palpitations. Gastrointestinal: Negative for abdominal pain, diarrhea, nausea and vomiting. Endocrine: Negative for polydipsia, polyphagia and polyuria. Genitourinary: Negative for dysuria, flank pain and hematuria. Musculoskeletal: Positive for joint swelling and myalgias. Negative for back pain, neck pain and neck stiffness. Skin: Positive for color change and pallor. Negative for rash and wound. Neurological: Negative for dizziness, tremors, numbness and headaches. Physical Exam There were no vitals taken for this visit. Physical Exam Vitals signs and nursing note reviewed. Constitutional: General: He is not in acute distress. Appearance: He is well-developed. He is not toxic-appearing. Comments: Patient laying comfortably in bed, nontoxic appearing. HENT: Head: Normocephalic and atraumatic. Right Ear: External ear normal. Left Ear: External ear normal. Nose: Nose normal. Mouth/Throat: Pharynx: Oropharynx is clear. Eyes: Conjunctiva/sclera: Conjunctivae normal. Pupils: Pupils are equal, round, and reactive to light. Neck: Musculoskeletal: Normal range of motion and neck supple. No neck rigidity or muscular tenderness. Cardiovascular: Rate and Rhythm: Normal rate and regular rhythm. Heart sounds: Normal heart sounds. No murmur. Pulmonary: Effort: Pulmonary effort is normal. No respiratory distress. Breath sounds: Normal breath sounds. No wheezing, rhonchi or rales. Abdominal: General: Bowel sounds are normal. There is no distension. Palpations: Abdomen is soft. Tenderness: There is no abdominal tenderness. There is no guarding or rebound. Musculoskeletal: Normal range of motion. Comments: I do not appreciate any swelling in the lower extremities. There are palpable DPs, PTs, popliteal pulses 2+ bilaterally. Capillary refill is normal bilaterally. There is some tenderness to palpation in the right lower extremity in the calf as well as behind the knee. Normal Kulkarni test b/l. There is a wound that appears well healing near the left medial malleolus. There are some small scabs noted on both lower extremities. There are some track rosales, likely from IV drug use in the bilateral antecubital fossae. Skin: General: Skin is warm and dry. Capillary Refill: Capillary refill takes less than 2 seconds. Comments: No Tremaine nodes, Janeway lesions, rash noted. No erythema migrans noted. Neurological: General: No focal deficit present. Mental Status: He is alert and oriented to person, place, and time. Mental status is at baseline. Psychiatric: Behavior: Behavior normal. Thought Content: Thought content normal. Diagnostic Testing ED Labs Ordered and Reviewed - No data to display Procedures ED Course / Clinical Impression ED Course as of Nov 29 1250 Royal (Eliseo Mccoy's Documentation ThuNov 23, 2019 1008 MELINA 1.049 (128/122) 1343 No evidence of DVT in lower extremity. US DVT LOWER RT Clinical Impressions as of Nov 29 1250 Pain of right lower extremity MDM / Disposition / Plan MDM The patient is a 34-year-old male who presents to the ED as a transfer from hospital for behavioral medicine concern for vascular ischemia on the right lower extremity with stable vital signs and in no acute distress, nontoxic-appearing. Chart review was performed and pertinent information was noted. Given the concerning physical exam reported from hospital for behavioral medicine as well as resolution with heparin, I believe it is reasonable to consult with vascular surgery. Ankle brachial index was performed and was 1.05. The patient currently has palpable pulses with no neurologic symptoms. Ankle brachial index within normal limits. I have a low suspicion for vascular occlusion at this time. Kulkarni test is normal, low suspicion for Achilles injury. Septic thrombus as well as endocarditis were considered but unlikely at this time given his exam findings. Vascular surgery saw the patient and recommended an ultrasound for right lower extremity DVT. Ultrasound personally reviewed, did not reveal DVT or other abnormality. At this time, vascular surgery recommended discharge with good follow-up. Did not recommend anticoagulation at this time as patient does not have an established physician and is likely to not be compliant. The vascular surgeon did provide follow-up information to the patient personally. I discussed these results as well as the plan with the patient. On reevaluation, patient's exam is unchanged. Still able to move the extremity and is neurovascularly intact. Encouraged establishing a relationship with a primary care provider and provided information. Patient verbalized understanding and agreement of the results as well as the plan. I do not believe any further lab or radiologic testing would provide benefit over risk in patient or change patient's management in the ED at this time. I discussed results and my reasoning and plan with patient. Patient verbalized agreement and understanding and is expressing discharge readiness. Patient was serially reevaluated while in the ED with no changes in exam except as noted above. Patient discharged from the Emergency Department. I do not feel that the patient's evaluation reveals any acute reason for admission at this time. I instructed them to either follow up with their primary care physician or promptly return to the Emergency Department for reevaluation should symptoms worsen or new symptoms develop. I explained what symptoms would indicate the need to return to the Emergency Department. Shared decision making was used. The patient voiced understanding of the treatment plan and is agreeable with it. Questions answered at bedside prior to discharge. 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 Patient denies any acetaminophen, ibuprofen or aspirin use recently. 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 TECHNIQUE: Grayscale with compression maneuvers, color Doppler and spectral Doppler at rest and with augmentation of the right distal external iliac, common femoral, femoral and popliteal veins was performed. Grayscale with compression maneuvers of the peroneal and posterior tibial veins was performed. The right great and small saphenous veins were also imaged in grayscale with compression maneuvers at their insertion to the deep system. The contralateral common femoral vein was imaged for comparison. Images were obtained and stored in a permanent archive. MQ: [id number] COMPARISON: None RESULT: RIGHT LOWER EXTREMITY PROXIMAL DEEP VEINS Distal External Iliac and Common Femoral Veins: Compression: Normal Doppler: Normal, spontaneous respirophasic flow. Normal response to augmentation. Femoral vein: Compression: Normal Doppler: Normal, spontaneous flow. Normal response to augmentation. Popliteal vein: Compression: Normal Doppler: Normal, spontaneous flow. Normal response to augmentation. CALF DEEP VEINS Peroneal veins: Normal compression. Posterior tibial veins: Normal compression. Gastrocnemius and Soleal veins: Not imaged. SUPERFICIAL VEINS Great saphenous: Patent and compressible at insertion into common femoral vein; not otherwise assessed. LEFT LOWER EXTREMITY (FOR COMPARISON) Common Femoral Vein: Compression: Normal Doppler: Normal, spontaneous respirophasic flow. Normal response to augmentation. IMPRESSION: There is no evidence of deep venous thrombosis in the right lower extremity. Life Support Technician: PSCB Transcribe Date/Time: Nov 23 2019 12:46P Dictated by : JONAS KAUFFMAN MD This examination was interpreted and the report reviewed and electronically signed by: JONAS KAUFFMAN MD on Nov 23 2019 12:49PM EST Normal [facility] Hemoglobin A1Con 12-20-2017 Glucose mass conc 103 mg/dL Normal [facility] Comment on above: Performed By: #### T SH4, LIPD2, HA1C2 ####The performing lab is in the report. Hemoglobin A1c/Hemoglobin.total mass fraction (Bld) 5.2 % Normal 4.0-5.7 [facility] Comment on above: Result Comment: --Hg bA1C levels may not be accurate in patients who haverenal disease, received recent blood transfusions, are anemic,or who have dyshemoglobinemia. Performed By: #### T SH4, LIPD2, HA1C2 ####The performing lab is in the report. Lipid Panelon 12-20-2017 Cholesterol to HDL Ratio 4 {ratio} Normal [facility] Comment on above: Result Comment: Ref Range:< 3 Low Risk for CHD3-6 Mod Risk for CHD> 6 High Risk for CHD Performed By: #### T SH4, LIPD2, HA1C2 ####The performing lab is in the report. HDL Cholesterol 46 mg/dL Normal 40-60 [facility] Comment on above: Performed By: #### T SH4, LIPD2, HA1C2 ####The performing lab is in the report. Low Density Lipoprotein 93 mg/dL Normal <100 [facility] Comment on above: Performed By: #### T SH4, LIPD2, HA1C2 ####The performing lab is in the report. Triglyceride 212 mg/dL Abnormal <150 [facility] Comment on above: Performed By: #### T SH4, LIPD2, HA1C2 ####The performing lab is in the report. Cholesterol 181 mg/dL Normal < 200 [facility] Comment on above: Performed By: #### T SH4, LIPD2, HA1C2 ####The performing lab is in the report. Thyroid Stim. Hormoneon 11-27 Thyroid Stim. Hormone 1.130 uU/mL Normal 0.358-3.740 [facility] Comment on above: Performed By: #### T SH4, LIPD2, HA1C2 ####The performing lab is in the report. EMERGENCY REPORTon 7 EMERGENCY REPORT [facility] EMERGENCY ROOM REPORT NAME NUMBER SEX AGE ADMIT DISC TYPE MED.RECORD# KHANH DE LA VEGA JR [id number] M 32 08/17/2017 08/18/2017 E.R. [id number] ROOM:ER DATE OF :1985 PHYSICIAN NO.:[id number] PHYSICIAN NAME: PHYSICIAN:Lakhwinder Astudillo ADDENDUM The patient was awaiting admission to a psychiatric facility when at 1520 p.m., the patient eloped. Apparently a friend picked him up in a [employer]. The shredding floor equipment operator was contacted to try to find the patient. I will add another addendum if he is returned to the emergency department, but currently the patient has eloped from the ER. D: Lakhwinder Astudillo TD: 08/19/2017 01:57:29 JOB #: [id number] Lakhwinder Astudillo D.O. Emergency Department 09/06/17 08:04 Transcribed by: CARMEN 08/19/2017 01:57:29 Copy for: DAY LUTHER DO Copy for: SANTOS WEINER DO Copy for: NO DOCTOR ON ADMISSION SHEET EMERGENCY ROOM REPORT KHANH DE LA VEGA JR 1 Normal [facility] EMERGENCY REPORTon 7 EMERGENCY REPORT [facility] EMERGENCY ROOM REPORT NAME NUMBER SEX AGE ADMIT DISC TYPE MED.RECORD# YOLETTE AGUILAR KHANH Connolly [id number] M 32 08/17/2017 E.RShavonne [id number] ROOM:ER DATE OF :1985 PHYSICIAN NO.:[id number] PHYSICIAN NAME: PHYSICIAN:Rajeev Graham D.O. CHIEF COMPLAINT: Suicidal ideation. HISTORY OF PRESENT ILLNESS: This is a 32-year-old male who presents for evaluation of his depression and suicidal ideation. Patient reports that he does have a history of being a paranoid schizophrenic and he states that today he has had enough, enough with relationships and his job, and he wants to . He states that he came here for help as not to kill himself. He states that he has been considering throwing himself in front of a car. The patient states that he used to be on medications for schizophrenia but has not been taking them for some time. He also has been hearing some voices which are making fun of him essentially. He denies any visual hallucinations. He states that he has not been using alcohol or illicit drugs today; however, he did relapse and use speed 2 days ago. He also feels quite bad about this. He denies any homicidal ideation at this time. PAST MEDICAL HISTORY: As noted for paranoid schizophrenia, otherwise negative. PAST SURGICAL HISTORY: Past surgical history is negative. ALLERGIES: He has allergies to penicillin and sulfa. SOCIAL HISTORY: The patient does smoke cigarettes, about 1 pack per day. He occasionally uses alcohol and again as noted uses marijuana and speed occasionally. IMMUNIZATIONS: The patient believes he is up to date on immunizations. REVIEW OF SYSTEMS: Ten-point review of systems was completed. It is positive for depression, anxiety, suicidal ideation, auditory hallucinations, and is otherwise negative. PHYSICAL EXAMINATION: General: The patient is alert, awake, in no acute distress. HEENT: Head is normocephalic, atraumatic. Pupils are equal, round, and reactive to light and accommodation. Extraocular muscles are intact. Mucous membranes are moist. Neck: Supple. Trachea is midline. Cardiac: Regular rate and rhythm. No murmurs appreciated. Lungs: Clear to auscultation bilaterally. Abdomen: Soft, nontender, nondistended. There is no rebound, guarding, or rigidity. Extremities: Demonstrate no edema or gross deformity. Peripheral pulses are intact and equal bilaterally. He has normal muscle strength and full range of motion. Motor and sensory exam are grossly intact. He has appropriate mood and behavior. EMERGENCY DEPARTMENT COURSE AND TREATMENT: Patient afebrile, nontoxic, in no acute distress. He does seem anxious and paranoid. Typical screening laboratories and EKG were obtained. Laboratory work is unremarkable. EKG shows no acute ST elevations or depressions. Urine drug screen is positive for cannabinoids and amphetamines. Patient is medically cleared for further evaluation and treatment. I believe the patient does warrant inpatient psychiatric evaluation and treatment. He has become more agitated while being here and was treated with Ativan initially orally, but this did not relieve his anxiety. The patient began to hear voices while he was here in the emergency department and became more agitated, so he was given Benadryl, Haldol, and Ativan which did calm him down and allow him to rest. Crisis counselor evaluated the patient and agrees he will likely need admission. Bed placement is pending at the time; however, the patient will be admitted for further evaluation and treatment. DIAGNOSIS: Depression with suicidal idea and psychosis. PLAN/DISPOSITION: Final disposition is pending at this time, but the patient will be admitted to a psychiatric facility for further evaluation and treatment. D: Rajeev Graham D.O. EMERGENCY ROOM REPORT KHANH DE LA VEGA JR 1 [facility] EMERGENCY ROOM REPORT NAME NUMBER SEX AGE ADMIT DISC TYPE MED.RECORD# KHANH DE LA VEGA JR [id number] M 32 08/17/2017 Renée [id number] ROOM:ER DATE OF :1985 PHYSICIAN NO.:[id number] PHYSICIAN NAME: PHYSICIAN:Rajeev Graham D.O. TD: 08/18/2017 13:01:57 JOB #: [id number] DR. RAJEEV GRAHAM D.O. EMERGENCY DEPARTMENT 08/19/17 06:46 Transcribed by: CARMEN 08/18/2017 13:01:57 Copy for: SANTOS WEINER DO Copy for: NO DOCTOR ON ADMISSION SHEET EMERGENCY ROOM REPORT KHANH DE LA VEGA JR 2 Normal [facility] ALCOHOL-BLOOD MEDICALon 07-30 Ethanol mg/dL Normal 0 - 50 [facility] Comment on above: Performed By: #### 2 55734 ####[place] [address] CBCon 08-18-2017 Basophils Auto #/vol (Bld) 0.10 x10EE3/UL Normal 0.00 - 0.10 [facility] Comment on above: Performed By: #### 2 49901 ####[facility],[address] [place] [address] Basophils/100 WBC Auto (Bld) 0.4 % Normal 0.0 - 2.0 [facility] Comment on above: Performed By: #### 2 88975 ####[facility],[address] [place] [address] Blood morphology N/A Normal [facility] Comment on above: Result Comment: {CD] Performed By: #### 2 78780 ####[place] [address] CBC Normal [facility] Comment on above: Result Comment: CBC- COMPLETE BLOOD COUNT Performed By: #### 2 83318 ####[facility],[address] [place] [address] 47001 Eosinophils 0.10 x10EE3/UL Normal 0.00 - 0.50 [facility] Comment on above: Performed By: #### 2 73845 ####[facility],[address] [place], [place] [address] Eosinophils/100 leukocytes 0.7 % Normal 0.0 - 7.0 [facility] Comment on above: Performed By: #### 2 72925 ####[facility],[address] [place] [address] Erythrocyte distribution width Auto Ratio (RBC) 14.7 % Normal 12.0 - 15.6 [facility] Comment on above: Performed By: #### 2 97082 ####[facility],[address] [place] [address] Erythrocytes (RBC) 5.62 x 10EE6/UL Normal 4.50 - 6.00 [facility] Comment on above: Performed By: #### 2 35421 ####[facility],[address] [place], [place] [address] Hematocrit (HCT) 46.8 % Normal 40.0 - 52.0 [facility] Comment on above: Performed By: #### 2 81431 ####[facility],[address] [place], [place] [address] Hemoglobin mass conc (Bld) 15.7 g/dL Normal 13.0 - 17.5 [facility] Comment on above: Performed By: #### 2 90308 ####[facility],[address] [place] [address] 47653 Lymphocytes 1.80 x10EE3/UL Normal 0.80 - 2.80 [facility] Comment on above: Performed By: #### 2 67205 ####[facility],[address],[place] [address] Lymphocytes/100 leukocytes 12.1 % Low 20.0 - 45.0 [facility] Comment on above: Performed By: #### 2 05351 ####[facility],[address] [place] [address] 78984 MANUAL DIFF N/A Normal [facility] Comment on above: Performed By: #### 2 05516 ####[facility],[address] [place] [address] 82221 MCH 28 pg Normal 27 - 33 [facility] Comment on above: Performed By: #### 2 74445 ####[facility],[address] [place] [address] 82342 MCHC mass conc (RBC) 34 X10 3 Normal 32 - 36 [facility] Comment on above: Performed By: #### 2 22604 ####[facility],[address] [place] [address] 98824 MCV 83 fL Normal 81 - 98 [facility] Comment on above: Performed By: #### 2 68385 ####[facility],[address] [place] [address] 37626 Monocytes 1.10 x10EE3/UL High 0.20 - 1.00 [facility] Comment on above: Performed By: #### 2 95163 ####[facility],[address] [place] [address] 82736 MONOS % 7.0 % Normal 0.0 - 10.0 [facility] Comment on above: Performed By: #### 2 11459 ####[facility],[address] [place] [address] 40872 Neutrophils 12.10 x10EE3/UL High 1.50 - 7.10 [facility] Comment on above: Performed By: #### 2 80430 ####[facility],[address] [place] [address] 92129 Neutrophils/100 WBC Auto (Bld) 79.8 % High 46.0 - 76.0 [facility] Comment on above: Performed By: #### 2 21862 ####[facility],[address] [place] [address] 73405 Platelet mean volume (PMV) 8.0 fL Normal 6.4 - 10.5 [facility] Comment on above: Result Comment: AUTO MATED DIFFERENTIAL Performed By: #### 2 37806 ####[facility],[address] [place] [address] 20779 Platelets 373 x10EE3/UL Normal 150 - [address] [facility] Comment on above: Performed By: #### 2 83406 ####[facility],[address] [place] [address] 98603 WBC (Leukocytes) 15.1 x 10EE3/UL High 4.5 - 10.8 [facility] Comment on above: Performed By: #### 2 94725 ####[facility],[address] [place] [address] 67289 CMP with eGFRon 08-18-2017 Age 32 years Normal [facility] Comment on above: Performed By: #### 2 23134 ####[facility],[address] [place] [address] 00713 Albumin 4.8 g/dL Normal 3.4 - 4.8 [facility] Comment on above: Performed By: #### 2 11583 ####[facility],[address] [place] [address] 98126 Albumin/Globulin Ratio 1.5 {ratio} Normal 0.9 - 1.6 [facility] Comment on above: Performed By: #### 2 75256 ####[facility],[address] [place] [address] 82254 ALK PHOS 84 U/L Normal 38 - 126 [facility] Comment on above: Performed By: #### 2 26712 ####[facility],[address] [place] [address] 75976 ALT/SGPT 11 U/L Normal 10 - 40 [facility] Comment on above: Performed By: #### 2 52345 ####[facility],[address] [place] [address] 04487 Anion gap 11 mmol/L Normal 10 - 20 [facility] Comment on above: Performed By: #### 2 67754 ####[facility],[address] [place] [address] 07209 AST/SGOT 16 U/L Normal 13 - 39 [facility] Comment on above: Performed By: #### 2 40469 ####[facility],[address] [place] [address] 11648 B/C RATIO 16 ratio Normal 0 - 30 [facility] Comment on above: Performed By: #### 2 57284 ####[facility],[address] [place] [address] 25408 Bilirubin (total) 0.6 mg/dL Normal 0.0 - 1.5 [facility] Comment on above: Performed By: #### 2 05441 ####[facility],[address] [place] [address] 95225 Calcium 9.8 mg/dL Normal 8.6 - 10.2 [facility] Comment on above: Performed By: #### 2 02932 ####[facility],[address] [place] [address] 66180 Chloride 104 mmol/L Normal 98 - 107 [facility] Comment on above: Performed By: #### 2 69452 ####[facility],[address] [place] [address] 26318 CO2 23.3 mmol/L Normal 21.0 - 31.0 [facility] Comment on above: Performed By: #### 2 97442 ####[facility],[address] [place] [address] 45500 Creatinine 1.0 mg/dL Normal 0.7 - 1.3 [facility] Comment on above: Performed By: #### 2 92548 ####[facility],[address] [place] [address] 20695 eGFR (non-black) mL/min/{1.73_m2} Normal 60 - 999 [facility] Comment on above: Result Comment: ACCO RDING TO THE NATIONAL KIDNEY DISEASE EDUCATION PROGRAM(NKDE), A NORMAL eGFRIS A VALUE GREATER THAN OR EQUAL TO 60 ML/MIN/1.73 SQ METERS.CHRONIC KIDNEY DISEASE: <60mL/MIN/1.73 SQ METERSKIDNEY FAILURE: <15mL/MIN/1.73 SQ METERSTHIS TEST SHOULD ONLY BE USED FOR PATIENTS 18 YEARS OF AGE AND OLDER. Performed By: #### 2 01852 ####[facility],[address] [place] [address] 29398 eGFR (non-black) Normal [facility] Comment on above: Result Comment: COMP REHENSIVE METABOLIC PANEL Performed By: #### 2 35228 ####[address] [address] Globulin 3.3 g/dL Normal 1.5 - 3.8 [facility] Comment on above: Performed By: #### 2 52176 ####[address] [address] Glucose mass conc 104 mg/dL Normal 74 - 106 [facility] Comment on above: Performed By: #### 2 16567 ####[address] [address] Potassium molar conc 3.4 mmol/L Low 3.5 - 5.1 [facility] Comment on above: Performed By: #### 2 04106 ####[address] [address] Protein 8.1 g/dL Normal 6.4 - 8.3 [facility] Comment on above: Performed By: #### 2 87018 ####[address] [address] Sodium 135 mmol/L Low 136 - 145 [facility] Comment on above: Performed By: #### 2 17712 ####[facility],[address] [place] [address],[facility] [address] Urea nitrogen 16 mg/dL Normal 6 - [facility] Comment on above: Performed By: #### 2 36727 ####[facility],[address] [place] [address],[facility] [address] DRUG SCREEN URINE MEDICon B-DIAZEPINES Negative Normal [facility] Comment on above: Performed By: #### 2 36679 ####[facility],[address] [place] [address],[facility] [address]358 BARBITURATES Negative Normal [facility] Comment on above: Performed By: #### 2 37280 ####[facility],[address] [place] [address] 45634 DRUG SCREEN URINE MEDIC Normal [facility] Comment on above: Result Comment: DRUG SCREEN - URINE Performed By: #### 2 36337 ####[facility],[address] [place] [address],[facility] [address]398 PCP Negative Normal [facility] Comment on above: Performed By: #### 2 30867 ####[facility],[address] [place] [address] 70788 TCA Negative Normal [facility] Comment on above: Performed By: #### 2 87281 ####[facility],[address] [place] [address] 75893 THC Positive Normal [facility] Comment on above: Result Comment: LG ENTS RECEIVING PROTON PUMP INHIBITORS MAY DEMONSTRATE FALSE POSITIVETHC/CANNABINOID RESULTS. AN ALTERNATIVE CONFIRMATORY METHOD SHOULD BE CONSIDEREDTO VERIFY POSITIVE RESULTS. Performed By: #### 2 93890 ####[facility],[address] [place] [address] 20692 Urine, amphetamines presence Positive Normal [facility] Comment on above: Performed By: #### 2 92341 ####[facility],[address] [place] [address],[facility] [address] Urine, cocaine presence Negative Normal [facility] Comment on above: Performed By: #### 2 93204 ####[facility],[address] [place] [address] 59127 Urine, methadone presence Negative Normal [facility] Comment on above: Performed By: #### 2 79771 ####[facility],[address] [place] [address] 71537 Urine, opiates presence Negative Normal [facility] Comment on above: Performed By: #### 2 74006 ####[facility],[address] [place] [address] 73379 URINALYSISon 08-18-2017 Amorphous 4+ Normal [facility] Comment on above: Performed By: #### 2 10721 ####[facility],[address] [place] [address] 34980 Bilirubin (total) Negative Normal NORMAL: NEGATIVE [facility] Comment on above: Performed By: #### 2 11048 ####[facility],[address] [place] [address] 13121 Blood Negative Normal NORMAL: NEGATIVE [facility] Comment on above: Performed By: #### 2 59399 ####[facility],[address] [place] [address] 81913 Epi Cells NONE Normal [facility] Comment on above: Performed By: #### 2 09625 ####[facility],[address] [place] [address] 46476 Erythrocytes (RBC) NONE Normal 0-3/hpf [facility] Comment on above: Performed By: #### 2 89475 ####[facility],[address] [place] [address] 07618 Glucose mass conc NORM Normal NORMAL: NORMAL [facility] Comment on above: Performed By: #### 2 74655 ####[facility],[address] [place] [address] 08493 Ketone 5 Abnormal NORMAL: NEGATIVE [facility] Comment on above: Performed By: #### 2 24051 ####[facility],[address] [place] [address],[facility] [address] Microscopic SEE BELOW Normal [facility] Comment on above: Result Comment: MICR OSCOPIC Performed By: #### 2 90567 ####[facility],[address] [place] [address],[facility] 24637 Mucous 2+ Normal [facility] Comment on above: Performed By: #### 2 68767 ####[facility],[address] [place] [address],[facility] 20352 pH of blood 5 [pH] Normal NORMAL: 5.0-8.0 [facility] Comment on above: Performed By: #### 2 39262 ####[facility],[address] [place], [place] [address] Protein 15 g/dL Abnormal NORMAL: NEGATIVE [facility] Comment on above: Performed By: #### 2 79110 ####[facility],[address] [place], [place] [address] Sp [place] 1.025 Normal NORMAL: 1.010-1.030 [facility] Comment on above: Performed By: #### 2 66945 ####[facility],[address] [place] [address] 91532 Specimen Type UNSPECIFIED Normal [facility] Comment on above: Performed By: #### 2 79066 ####[facility],[address] [place] [address] 01091 URINALYSIS Normal [facility] Comment on above: Result Comment: URIN ALYSIS Performed By: #### 2 22011 ####[facility],[address] [place] [address] 44868 Urine, bacteria in sediment NONE Normal [facility] Comment on above: Performed By: #### 2 29806 ####[facility],[address] [place] [address] 45160 Urine, casts in sediment NONE Normal [facility] Comment on above: Performed By: #### 2 67112 ####[facility],[address] [place] [address],[facility] 97832 Urine, clarity CLOUDY Normal NORMAL: CLEAR [facility] Comment on above: Performed By: #### 2 71342 ####[facility],[address] [place] [address],[facility] [address]73 Urine, color brown Normal NORMAL: YELLOW [facility] Comment on above: Performed By: #### 2 49926 ####[facility],[address] [place] [address],[facility] [address]114 Urine, crystals in sediment NONE Normal [facility] Comment on above: Performed By: #### 2 20433 ####[facility],[address] [place] [address],[facility] 33784 Urine, nitrite presence Negative Normal NORM AL: NEGATIVE [facility] Comment on above: Performed By: #### 2 90650 ####[facility],[address] [place] [address] 67848 Urine, yeast presence in sediment NONE Normal [facility] Comment on above: Performed By: #### 2 36812 ####[facility],[address] [place] [address] 27250 Urobilinog 1 Abnormal NORMAL: NORMAL [facility] Comment on above: Performed By: #### 2 00134 ####[facility],[address] [place] [address] 30038 WBC (Leukocytes) 25 10*3/uL Abnormal NORMAL: NEGATIVE [facility] Comment on above: Performed By: #### 2 54200 ####[facility],[address] [place] [address] 50419 WBC (Leukocytes) 1-5 Normal 0-5/hpf [facility] Comment on above: Performed By: #### 2 85850 ####[facility],[address] [place] [id number] EMERGENCY REPORTon 7 EMERGENCY REPORT [facility] EMERGENCY ROOM REPORT NAME NUMBER SEX AGE ADMIT DISC TYPE MED.RECORD# KHANH DE LA VEGA JR [id number] 07/27/2017 07/27/2017 Renée [id number] ROOM:ER DATE OF :1985 PHYSICIAN NO.:[id number] PHYSICIAN NAME: PHYSICIAN:ROJAS GREENFIELD CHIEF COMPLAINT: The patient came in. He complained of a cough which he has had for 2 months. HISTORY OF PRESENT ILLNESS: He said he has had this cough. It was acute bronchitis, and he was diagnosed with flu, then bronchitis, but he never got better, and he continues to cough. He also has dental pain in his right lower molar giving him discomfort, and he says he has an appointment with a dentist next week, and they told him to take something for pain. He denies any fevers, chills, nausea, or vomiting. PAST MEDICAL HISTORY: His past medical history has been unremarkable. PAST SURGICAL HISTORY: Denies. SOCIAL HISTORY: He does smoke, occasionally drinks alcohol. REVIEW OF SYSTEMS: Ten systems were reviewed and were negative except as mentioned above. PHYSICAL EXAMINATION: He is an awake, alert, oriented male in no acute distress. He is afebrile. Pulse 107, respirations 22, blood pressure 119/76, pulse oximetry 96% on room air. Head is normocephalic, atraumatic. Eyes: Pupils equal, round, and reactive to light. Extraocular muscles intact. Nares are patent. Throat has adequate oral moisture. Uvula is midline. Neck is supple without petechiae or rash. Heart without murmur. S1 equals S2. No S3 or S4 appreciated. Lungs are clear to auscultation bilaterally. No rales, rhonchi, or retractions. Abdomen: Soft, nontender, nondistended. Skin is warm and dry. DIAGNOSTIC DATA: The patient had an x-ray which was unremarkable per my interpretation. EMERGENCY DEPARTMENT COURSE AND TREATMENT: I did review his OARRS, which was minimal. I will give him a Percocet here as well as a Percocet to go here as well as clindamycin. DIAGNOSES: 1. Acute bronchitis. 2. Dental pain. PLAN/DISPOSITION: I will write him for 5 Percocet for severe pain, and he will be discharged in stable condition. D: ROJAS GREENFIELD TD: 07/28/2017 07:37:47 JOB #: [id number] Rojas Greenfield D.O. Emergency Department 07/28/17 20:03 Transcribed by: CARMEN 07/28/2017 07:37:47 EMERGENCY ROOM REPORT KHANH DE LA VEGA JR 1 [facility] EMERGENCY ROOM REPORT NAME NUMBER SEX AGE ADMIT DISC TYPE MED.RECORD# KHANH DE LA VEGA JR [id number] 07/27/2017 07/27/2017 EShavonneRShavonne [id number] ROOM:ER DATE OF :1985 PHYSICIAN NO.:[id number] PHYSICIAN NAME: PHYSICIAN:ROJAS GREENFIELD Copy for: ASHER Barnes III Copy for: NO DOCTOR ON ADMISSION SHEET EMERGENCY ROOM REPORT KHANH DE LA VEGA JR 2 Normal [facility] CHEST PA/LATon 07-27-2017 CHEST PA/LAT [place] [address] [address] [place] [address] Patient: KHANH DE LA VEGA JR. Phone#: : 1985 Age: 32 Gender: M Pt. Type: ER Account: [id number] Location: [id number] Ordering: ROJAS GREENFIELD Exam Date: 07/27/2017/20:29 Family Phys: NO DOCTOR Charge Code: [id number] Physician: [place] Order #: [id number] DLP Dose#: PROCEDURE: X-RAY CHEST PA/LAT 2 VIEWS COMPARISON: None. INDICATIONS: Cough FINDINGS: LUNGS: Normal. No significant pulmonary parenchymal abnormalities. VASCULATURE: Normal. Unremarkable pulmonary vasculature. CARDIAC: Normal. No cardiac silhouette abnormality or cardiomegaly. MEDIASTINUM: Normal. No visible mass or adenopathy. PLEURA: Normal. No effusion or pleural thickening. BONES: Normal. No fracture or visible bony lesion. OTHER: Negative. CONCLUSION: No acute disease. Dictated by: Asia Israel MD on 07/28/2017 at 8:11 Approved by: Asia Israel MD on 07/28/2017 at 8:11 Normal [facility] Vital Signs Date Time Vital Sign Value Performing Clinician Faci lity 12-24-2024 19:09-0400 Body temperature 98.7 [degF] No Primary Care Physician [facility] 12-24-2024 19:09-0400 Diastolic blood pressure 98 mm[Hg] No Primary Care Physician [facility] 12-24-2024 19:09-0400 Heart rate 107 /min No Primary Care Physician [facility] 12-24-2024 19:09-0400 Respiratory rate 16 /min No Primary Care Physician [facility] 12-24-2024 19:09-0400 SaO2% (BldA) [Mass fraction] 98 % No Primary Care Physician [facility] 12-24-2024 19:09-0400 Systolic blood pressure 127 mm[Hg] No Primary Care Physician [facility] 12-24-2024 18:12-0400 Body height 175.26 cm No Primary Care Physician [facility] 12-24-2024 18:12-0400 Body mass index (BMI) [Ratio] 25.4 kg/m2 No Primary Care Physician [facility] 12-24-2024 18:12-0400 Body weight 78.33 kg No Primary Care Physician [facility] 11-04-2024 22:30-0500 Body mass index (BMI) [Ratio] 26.6 kg/m2 No Primary Care Physician [facility] 11-04-2024 22:30-0500 Body temperature 98.2 [degF] No Primary Care Physician [facility] 11-04-2024 22:30-0500 Body weight 81.73 kg No Primary Care Physician [facility] 11-04-2024 22:30-0500 Diastolic blood pressure 90 mm[Hg] No Primary Care Physician [facility] 11-04-2024 22:30-0500 Heart rate 125 /min No Primary Care Physician [facility] 11-04-2024 22:30-0500 Respiratory rate 18 /min No Primary Care Physician [facility] 11-04-2024 22:30-0500 SaO2% (BldA) [Mass fraction] 100 % No Primary Care Physician [facility] 11-04-2024 22:30-0500 Systolic blood pressure 144 mm[Hg] No Primary Care Physician [facility] 11-18-2023 01:02-0500 Body height 175.26 cm [facility] 11-18-2023 01:02-0500 Body mass index (BMI) [Ratio] 30.4 kg/m2 [facility] 11-18-2023 01:02-0500 Body temperature 97.3 [degF] [facility] 11-18-2023 01:02-0500 Body weight 93.4 kg [facility] 11-18-2023 01:02-0500 Diastolic blood pressure 98 mm[Hg] [facility] 11-18-2023 01:02-0500 Heart rate 62 /min [facility] 11-18-2023 01:02-0500 Respiratory rate 18 /min [facility] 11-18-2023 01:02-0500 SaO2% (BldA) [Mass fraction] 97 % [facility] 11-18-2023 01:02-0500 Systolic blood pressure 134 mm[Hg] [facility] 12-22-2022 04:03-0400 Diastolic blood pressure 76 mm[Hg] [facility] 12-22-2022 04:03-0400 Heart rate 70 /min [facility] 12-22-2022 04:03-0400 Respiratory rate 15 /min [facility] 12-22-2022 04:03-0400 SaO2% (BldA) [Mass fraction] 98 % [facility] 12-22-2022 04:03-0400 Systolic blood pressure 115 mm[Hg] [facility] 12-22-2022 02:39-0400 Body height 175.26 cm [facility] 12-22-2022 02:39-0400 Body mass index (BMI) [Ratio] 29 kg/m2 [facility] 12-22-2022 02:39-0400 Body temperature 98.6 [degF] [facility] 12-22-2022 02:39-0400 Body weight 89.4 kg [facility] 11-25-2022 23:04-0500 Body height 175.26 cm [facility] 11-25-2022 23:04-0500 Body mass index (BMI) [Ratio] 28.8 kg/m2 [facility] 11-25-2022 23:04-0500 Body temperature 98.1 [degF] [facility] 11-25-2022 23:04-0500 Body weight 88.45 kg [facility] 11-25-2022 23:04-0500 Diastolic blood pressure 98 mm[Hg] [facility] 11-25-2022 23:04-0500 Heart rate 104 /min [facility] 11-25-2022 23:04-0500 Respiratory rate 15 /min [facility] 11-25-2022 23:04-0500 SaO2% (BldA) [Mass fraction] 97 % [facility] 11-25-2022 23:04-0500 Systolic blood pressure 127 mm[Hg] [facility] 07-20-2022 05:09-0400 Diastolic blood pressure 71 mm[Hg] [facility] Work Phone: 07-20-2022 05:09-0400 Heart rate 88 /min [facility] Work Phone: 07-20-2022 05:09-0400 Respiratory rate 17 /min [facility] Work Phone: 07-20-2022 05:09-0400 SaO2% (BldA) [Mass fraction] 98 % [facility] Work Phone: 07-20-2022 05:09-0400 Systolic blood pressure 117 mm[Hg] [facility] Work Phone: 07-20-2022 02:20-0400 Body height 175.26 cm [facility] Work Phone: 07-20-2022 02:20-0400 Body mass index (BMI) [Ratio] 25.9 kg/m2 [facility] Work Phone: 07-20-2022 02:20-0400 Body temperature 97 [degF] [facility] Work Phone: 07-20-2022 02:20-0400 Body weight 79.7 kg [facility] Work Phone: 07-15-2022 08:13-0400 Body temperature 97.7 [degF] Alesia Crenshaw MD Work Phone: [facility] 07-15-2022 08:13-0400 Diastolic blood pressure 58 mm[Hg] Alesia Crenshaw MD Work Phone: [facility] 07-15-2022 08:13-0400 Heart rate 73 /min Alesia Crenshaw MD Work Phone: [facility] 07-15-2022 08:13-0400 Respiratory rate 18 /min Alesia Crenshaw MD Work Phone: [facility] 07-15-2022 08:13-0400 SaO2% (BldA) [Mass fraction] 99 % Alesia Crenshaw MD Work Phone: [facility] 07-15-2022 08:13-0400 Systolic blood pressure 103 mm[Hg] Alesia Crenshaw MD Work Phone: [facility] 03-31-2022 20:57-0400 Diastolic blood pressure 87 mm[Hg] [facility] Work Phone: 03-31-2022 20:57-0400 Heart rate 101 /min [facility] Work Phone: 03-31-2022 20:57-0400 SaO2% (BldA) [Mass fraction] 99 % [facility] Work Phone: 03-31-2022 20:57-0400 Systolic blood pressure 123 mm[Hg] [facility] Work Phone: 03-31-2022 19:25-0400 Respiratory rate 16 /min [facility] Work Phone: 03-31-2022 19:21-0400 Body height 175.26 cm [facility] Work Phone: 03-31-2022 19:21-0400 Body mass index (BMI) [Ratio] 26 kg/m2 [facility] Work Phone: 03-31-2022 19:21-0400 Body temperature 99.1 [degF] [facility] Work Phone: 03-31-2022 19:21-0400 Body weight 80 kg [facility] Work Phone: Encounters Encounter Date Encounter Type Care Provider Facility Start: 12-24-2024 End: 12-24-2024 Emergency department patient visit No Primary Care Physician -Emergency Department Work Phone: Start: 11-04-2024 End: 11-05-2024 Emergency department patient visit Joseph Taylor -Emergency Department Work Phone: Start: 08-06-2024 End: 08-06-2024 ambulatory Facility:[facility] Start: 08-06-2024 End: 08-06-2024 Patient encounter procedure Inocencio Ochoa MD Work Phone: [facility] Comment on above: Urinary incontinence , unspecified type (Primary Dx) Start: 03-16-2024 ambulatory Elkin Jose Facility: [facility] Start: 03-16-2024 End: 03-19-2024 Evaluation and management of inpatient No Primary Care Physician Facility:[facility] Start: 03-09-2024 End: 03-09-2024 ambulatory PHY WO ID REFERRING Facility:A Start: 03-09-2024 End: 03-09-2024 Patient encounter procedure PHY WO ID REFERRING [facility] Start: 11-18-2023 End: 11-18-2023 Emergency department patient visit [facility]-Emergency Department Work Phone: Start: 12-22-2022 End: 12-22-2022 Emergency department patient visit [facility]Emergency Department Start: 11-25-2022 End: 11-25-2022 Emergency department patient visit [facility]Emergency Department Start: 07-20-2022 End: 07-20-2022 Emergency department patient visit [facility]Emergency Department Start: 07-14-2022 End: 07-15-2022 ambulatory UNKNOWN PROVIDER [facility] Start: 07-14-2022 End: 07-15-2022 Evaluation and management of inpatient Alesia Crenshaw MD Work Phone: [facility] [employer] Comment on above: Non-traumatic rhabdo myolysis (Primary Dx) Start: 03-31-2022 End: 03-31-2022 Emergency department patient visit [facility]Emergency Department Start: 07-18-2020 End: 07-18-2020 Patient encounter status Inocencio Ochoa MD Work Phone: [facility] Work Phone: Start: 10-19-2017 Emergency department patient visit UNKNOWN PROVIDER [facility] Start: 08-17-2017 End: 08-18-2017 Emergency department patient visit RAJEEV MARCANO [facility] Start: 07-27-2017 End: 07-27-2017 Emergency department patient visit ROJAS Barnes ASHER [facility] Procedures Date Procedure Procedure Detail Performing Clinician Start: 11-04-2024 CT angiography of lo wer limb No Primary Care Physician Start: 03-12-2023 Lipid 1996 panel - S andrea or Plasma Inocencio Ochoa MD Work Phone: Start: 11-25-2022 Plain x-ray of wrist Start: 07-15-2022 Assay of ethanol Obinna Mcfarland MD Work Phone: Start: 07-15-2022 Creatine kinase total M nneka Mcfarland MD Work Phone: Start: 07-14-2022 ADD ON LAB TEST Roldan Crenshaw MD Work Phone: Start: 07-14-2022 Drug tst prsmv instr mnt chem analyzers pr date Richard Mcfarland MD Work Phone: Start: 07-14-2022 ADD ON LAB TEST Roldan Crenshaw MD Work Phone: Start: 07-14-2022 Basic metabolic pane l calcium total Alesia Crenshaw MD Work Phone: Start: 07-14-2022 Ecg routine ecg w/le ast 12 lds w/i&r Alesia Crenshaw MD Work Phone: Start: 07-14-2022 Ct cervical spine w/ o contrast material Alesia Crenshaw MD Work Phone: Start: 07-14-2022 Ct head/brain w/o co ntrast material Alesia Crenshaw MD Work Phone: Start: 07-14-2022 Radiologic exam ches t single view Alesia Crenshaw MD Work Phone: Start: 03-31-2022 CT angiography of ch est with contrast Start: 03-31-2022 Plain chest X-ray Plan of Treatment Date Care Activity Detail Author Start: 03-12-2028 Lipid panel Lipid Screening [facility] Start: 12-24-2024 [facility] Start: 11-05-2024 [facility] Start: 08-17-2024 End: 08-17-2024 Patient encounter procedure 08/17/2024 1:20 PM EST Office Visit [facility] [address], [place] [phone] Laura Tirado, CLEAT FEEDER.CREDIT OFFICER [address], [place] [phone] est care [facility] Comment on above: est care Start: 05-29-2024 Covid-19 Vaccine ( season) Covid-19 Vaccine ( season) [facility] Start: 05-29-2024 Influenza vaccination Influenza Vacc ine (#1) [facility] Start: 11-18-2023 [facility] Start: 04-28-2022 Influenza vaccination Flu vaccine (# 1) [facility] Start: 03-31-2022 Blood chemistry [facility] Work Phone: Start: 03-31-2022 [facility] Work Phone: Start: 2003 DTaP/Tdap/Td vaccine (1 - Tdap) DTaP/Tdap/Td vaccine (1 - Tdap) [facility] Start: 2003 Hepatitis B Vaccine (1 of 3 - 19+ 3-dose series) Hepatitis B Vaccine (1 of 3 - 19+ 3-dose series) [facility] Start: 2003 Urine microalbumin profile DTaP,Tdap,Td Vaccine (1 - Tdap) [facility] Start: 2002 Anxiety Screening Anxiety Screening [facility] Start: 1990 Pneumococcal vaccination Pneum ococcal Vaccine (1 of 2 - PCV) [facility] Start: 1984 COVID-19 Vaccine (#1) COVID-19 Vacci ne (#1) [facility] Oxygen therapy [[facility] Data Set] Initiate Oxygen Therapy Protocol Respiratory Care Routine As Needed until discontinued starting 07/14/2022 [facility] Work Phone: Comment on above: As Needed until disc ontinued starting 07/14/2022 Patient Education [facility] Work Phone: Patient referral [facility] Work Phone: Immunizations Immunization Date Immunization Notes Care Provider Fa cili 07-14-2020 influenza, injectabl e, quadrivalent, preservative free [facility] 07-14-2020 influenza, seasonal, injectable [facility] 07-14-2020 influenza, seasonal, injectable, preservative free Inocencio Ochoa MD Work Phone: [facility] 07-14-2020 influenza virus vaccine, unspecified formulation Inocencio Ochoa MD Work Phone: [facility] Payers Date Payer Category Payer Self-pay [id number] 2024 Unknown [id number] 2022 Medicaid [facility] MEDICAID [facility] COMMUNITY PLAN MEDICAID OF [place] [id number] 2022-Present [phone] [address] [place] [id number] Medicaid [id number] 2022 Unknown [id number] 2017 Unknown [id number] 1985 Unknown [id number] 1985 Unknown [id number] Private Health Insurance Unknown [facility] [id number] Unknown [id number] Unknown [id number] Unknown [id number] Unknown [id number] Unknown [id number] Unknown [id number] Unknown [id number] Social History Date Type Detail Facility Start: 03-31-2022 End: 11-18-2023 Tobacco smoking status SCIS Unknown if ever smoked [facility] Start: 09-03-2020 None [facility] Start: 07-13-2020 Alone [facility] Start: 07-13-2020 Cigarettes [facility] Start: 1985 Sex Assigned At Male W [facility] Start: 07-14-2022 End: 12-24-2024 Tobacco smoking status SCIS Smokes tobacco daily [facility] History of tobacco use Cigarette Smoker S [facility] Work Phone: Start: 09-04-2020 End: 07-14-2022 Cigarettes smoked current (pack per day) - Reported 1 [facility] Work Phone: Start: 02-10-2018 End: 07-14-2022 Tobacco use and exposure Smokeless tobacco non-user [facility] Work Phone: Start: 09-18-2021 End: 07-14-2022 Alcohol intake Current drinker of alcohol (finding) [facility] Work Phone: Start: 08-31-2017 History SDOH Alcohol Comment occassional [facility] Work Phone: Start: 1985 Sex Assigned At Not on file S [facility] Work Phone: Start: 07-04-2022 End: 07-14-2022 Exposure to SARS-CoV-2 (event) Not sure [facility] Work Phone: Start: 09-04-2020 End: 09-18-2021 Tobacco use panel [facility] Work Phone: How hard is it for y ou to pay for the very basics like food, housing, medical care, and heating Not hard at all [facility] Work Phone: The food that (I/we) bought just didn't last, and (I/we) didn't have money to get more. Never true [facility] Start: 07-19-2020 Education 21 [facility] Start: 12-14-2017 Alcohol Comment [facility] Start: 12-24-2024 Sex Male (finding) [facility] Mental Status Date Assessment Result Facility 03-31-2022 Cognitive function Awake;Alert;A ppropriate;Fol lows Commands [facility] Work Phone: Clinical Notes 07-14-2022 to 12-24-2024 Note Date & Type Note Facility 12-24-2024 Discharge summary [facility] 12-24-2024 Discharge summary Note Date/Time December 24, 2024 7:01pm [facility] Medical Records Department [address] [place] [address] Emergency Department Summary 12/24/24 MR#: [id number] Acct: [id number] Name: KHANH DE LA VEGA Jr. Rep #:[id number] : 1985 39 From: Murali Del Toro MD PCP: Care Physician,No Primary Status :REG ER Location: ED HPI HPI - URI History of Present Illness Chief Complaint: Ear Problem Informant: patient Onset/Context/Timing Onset: Today Context: Gradual Onset Timing: Continuous Current Severity: Mild Maximum Severity: Mild Narrative Narrative: 39-year-old male history of polysubstance abuse and hep C. Patient had his earspierced about 2 months ago. The current hearing in his left ear has been in about a month. He just wanted taken out today and noticed that the back of the earring is now underneath the skin and he cannot remove it. He said prior to that he was not having any pain. No redness, swelling or discharge. Prior similar symptoms: No Recent Illness/Hospitalization: No ROS ROS ED ROS Narrative Denies recent illness. Constitutional Constitutional ED: Denies chills or fever(s) Eyes Eyes: Denies blurry vision ENT ENT ED: Denies ear pain Cardiovascular Cardiovascular: Denies chest pain Respiratory/Chest Respiratory/Chest: Denies cough or dyspnea Gastrointestinal Gastrointestinal: Denies abdominal pain Genitourinary Genitourinary ED: Denies dysuria or hematuria Musculoskeletal Musculoskeletal: Denies arthralgias Integumentary Denies abscess Neurologic Neurologic: Denies headache(s) Psychiatric Psychiatric: Denies anxiety or depression Endocrine Endocrinology: Denies cold intolerance Hematologic/Lymphatic Hematologic/Lymphatic: Denies easy bleeding, easy bruising or lymphadenopathy Allergic/Immunologic Allergic/Immunologic ED: Denies mouth swelling, tongue swelling or urticaria PFSH [facility] Medical History Polysubstance abuse Tobacco abuse Chronic hepatitis C 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) Chronic dental pain Acute opioid withdrawal Home Medications ?Medication ?Instructions ?Recorded ?Last Taken ?Type polyethylene glycol 3350 17 17 g PO DAILY 7 days #119 grams 03/19/24 Unknown Rx gram/dose oral powder (Miralax) sennosides 8.6 mg capsule (senna) 8.6 mg PO BID PRN co nstipation 7 03/19/24 Unknown Rx days #14 caps cephalexin 500 mg capsule 500 mg PO Q12 5 days #10 CAP SULES 12/24/24 Unknown Rx Allergy/AdvReac Type Severity Reaction Status Date / Time Penicillins (PCN) Allergy Swelling Verified 12/24/24 18:12 Sulfa (Sulfonamide Allergy Swelling Verified 12/24/24 18:12 Antibiotics) Family History no significant family his Social History Smoking Status: Current every day smoker tobacco type: cigarettes and e-cigarettes EXAM Physical Exam Narrative Exam Narrative: Well-appearing 39-year-old male. Sitting upright in bed. Vital signs stable afebrile. H EENT exam pupils round reactive light. Limited poor dentition. Missing teeth. Moist mucous membranes. Patient has large earrings in both ears. There is stud type earrings. The left 1 the back fastener of the earringhas retracted underneath the skin. I am have the nurses try to remove it. There is no pus or redness. Not particularly tender or significantly swollen. There is mild swelling. Necknontender. Lungs clear. Heart regular rhythm no murmur. Abdomen soft nontender. Chest wall nontender. Moving all 4 extremities. Nontender no edema. He is awake and alert. Const Vital Signs: 12/24/24 18:12 Temperature 98.7 F Temperature Source Oral Pulse Rate 107 H Respiratory Rate 16 Blood Pressure 127/98 H Blood Pressure Mean 107 Pulse Ox 98 Oxygen Delivery Method Room Air Positive well nourished and well developed; Negative for obese, cachectic or contractures General Appearance ED: well developed and NAD; Negative for cachectic, contractures, cyanotic, diaphoretic or pallor Nutritional Appearance: Negative for cachectic or obese HEENT Reports moist mucous membranes HEENT Narrative: Left stud earring the back fastener is embedded underneath the skin. No pus. No redness. Minimal swelling. normocephalic Eyes PERRL and EOMs intact bilaterally General Eye ED: Negative for pale conjunctiva Neck no lymphadenopathy, supple, no meningeal signs and no JVD General: Negative for anterior neck swelling or lymphadenopathy Resp normal respiratory effort and clear to auscultation bilaterally Cardio S1 normal heart sound, S2 normal heart sound and no murmurs Rate: regular rate Rhythm: regular rhythm GI non-tender, non-distended and no masses Palpation: soft; Negative for tender or guarding Back/Spine no CVA tenderness and normal ROM General Back: Negative for CVA tenderness Cervical Spine: Negative for cervical spine tenderness Thoracic Spine / Upper Back: Negative for thoracic spinal tenderness Lumbar Spine / Lower Back: Negative for lumbar spinal tenderness Extremity normal to inspection and full ROM Neuro oriented x3 and CN's II-XII intact bilaterally Sensorium / Orientation: alert and oriented to person Motor Exam: strength 5/5 throughout Psych mental status grossly normal Mood & Affect: Negative for depressed, anxious or tearful Skin General Skin Exam: Negative for jaundice or pallor Lesions: no lesions Rashes: no rashes MDM MDM MDM Narrative Medical decision making narrative: 39-year-old male who had his ears pierced about a 2 months ago. The current earring in the left has been in a month. He just went to take it out today was not having any complaints. No pain nor redness nor pus. And he could not get it out he thinks the back fastener part of it is embedded underneath the skin. We were able to take the earring out but we think the back fastener is embedded under the skin. Area will be anesthetized and I will try to remove the foreign body. History & Record Review Discussion w/independent historian: Patient Procedures Other Procedures Procedure(s): Left ear was stuck in the earlobe. We were unable to push it through. Area was cleaned with Shur-Clens. Washed with saline. We locally anesthetized the area. I made a small half centimeter incision. We were able to get the piece out and remove the earring. Patient tolerated well. He was instructed leave it out. Ice to decrease pain and swelling. Tylenol Motrin. Antibiotic ointment. Clean daily. Keflex twice a day for 5 days to try to prevent infection. Follow-up as needed. Left earlobe foreign body removal. Discharge Plan Triage Chief Complaint: Ear Problem ED Provider: Murali Del Toro Dx/Rx/DC Orders Clinical Impression: H/O retained foreign body fully removed Prescriptions: New cephalexin 500 mg capsule 500 mg PO Q12 5 Days Qty: 10 0RF No Action senna 8.6 mg capsule 8.6 mg PO BID PRN (Reason: constipation) 7 Days Qty: 14 0RF polyethylene glycol 3350 [Miralax] 17 gram/dose powder 17 g PO DAILY 7 Days Qty: 119 0RF Primary Care Provider: Care Physician,No Primary Referrals: Care Physician,No Primary [Primary Care Provider] - Activity Restrictions/Additional Instructions: Motrin and Tylenol for pain. Clean the area of your left earlobe daily with soap and water peroxide and waterto prevent infection. Apply antibiotic ointment daily. The antibiotic Keflex 1 pill 3 times a day for 3 days help try to prevent infection. Do not put the earring back in at this time it will increase the risk of infection and get stuck again. Wait to the swelling goes down and follow-up with your person that pierced her ear. Print Language: Setswana Disposition Disposition: Home, Self Care What to do if you have Problems For any increased pain, shortness of breath, bleeding, nausea or vomiting, chestpain, or any unexpected problems, contact your Primary Care Provider. Call [facility] ([phone]) or report to the closest Emergency Room. Call 911 if necessary. 12/24/241900 <Electronically signed by Murali Del Toro MD> Cosigner Signature (if applicable): CC: No Primary Care Physician ~ Signed [facility] Work Phone: 1(257) 832-863611-09-2024 NoteHNO ID: [id number] Author: INOCENCIO OCHOA MD Service: ? Author Type: Physician Type: Progress Notes Filed: 08/06/2024 13:59 Note Text: Express Care Triage Note: Patient presents to the [facility] with complaint of needing a primary care provider to arrange prescription for incontinence supplies. He denies he has any acute issues, but was told there are no appointments to establish with a PCP for 3 months and to go to the [facility]. He is willing to schedule at another facility and scheduling was facilitated.[facility] 08-06-2024 History of Present illness Narrative* Inocencio Ochoa MD - 08/06/2024 1:55 PM EST Express Care Triage Note: Patient presents to the [facility] with complaint of needing a primary care provider to arrange prescription for incontinence supplies. He denies he has any acute issues, but was told there are no appointments to establish with a PCP for 3 months and to go to the [facility]. He is willing to schedule at another facility and scheduling was facilitated. [facility] Medical Records Department [address] [place] [address] Discharge Summary 03/19/24 1124 MR#: [id number] Acct: [id number] Name: KHANH DE LA VEGA Jr. Rep #: [id number] : 1985 38 From: Barron Camara DO PCP: Care Physician,No Primary Status:ADM IN Location: [place] [address] Providers Date of Admission: 03/16/24 Date of Discharge: 03/19/24 Primary Care Physician: No Primary Care Phys Reason For Visit: ACUTE OPOID WITHDRAWAL SYNDROME Diagnosis Discharge Diagnosis (1) Acute opioid withdrawal: Status: Chronic Code(s): F11.23 - Opioid dependence with withdrawal (2) Polysubstance abuse: Status: Chronic Code(s): F19.10 - Other psychoactive substance abuse, uncomplicated (3) Tobacco abuse: Status: Chronic Code(s): Z72.0 - Tobacco use Medications at Discharge Home Medications polyethylene glycol 3350 17 gram/dose oral powder (Miralax) 17 g PO DAILY 7 days #119 grams 03/19/24 sennosides 8.6 mg capsule (senna) 8.6 mg PO BID PRN constipation 7 days #14 caps 03/19/24 Hospital Course Operations None Procedures None Summary of Care Provided Minutes Spent on Discharge: 35 Hospital Course: Patient is a 38-year-old male who presented [facility] ED on 03/16/2024 for opiate detoxification. Hospital course as noted below. Discharged home in stable condition on 03/19. 1. Opiate abuse with desire for detoxification ??? Treated with buprenorphine taper with other as needed medications per opiate withdrawal order set. Encouraged opiate cessation. Addiction medicine followed. Patient discharged home with plan for outpatient therapy with 180 post discharge. 2. Polysubstance abuse ??? Patient reported chronic methamphetamine abuse and cannabis use. UDS on admit positive for amphetamines, cannabinoids and benzodiazepines. Treated withdrawal as noted above, otherwise supportive care indicated. Encouraged cessation on discharge. 3. Tobacco abuse ??? Current smoker, 1 pack/day. Nicotine patch provided while inpatient per patient request. 4. Mild hypokalemia and hypophosphatemia, improved ??? Potassium 3.3, phosphorus 2.0 on admit. Repleted as needed. 5. Mild normocytic anemia ??? Hemoglobin 12.4 on admit, decreased to 11.3 on hospital day 2 after IV fluid administration. Suspect mild chronic anemia from IV drug use as noted above. No need to monitor further CBCs. 6. Mild constipation ??? Presumed secondary to opiate abuse. Treated with Senna and MiraLAX as needed. Chronic medical conditions: ??? History of infective endocarditis/tricuspid valve apparatus vegetation: Admitted here in June 2020 for fevers, was found to have infective endocarditis. Was transferred to [facility] for further management. Per [facility] records, appears that the GRICELDA done there showed a thickened tricuspid valve but no evidence of endocarditis so he was just treated with antibiotics and did not require any procedures. No murmur noted on exam on this admission, no concern for recurrent endocarditis. ??? History of chronic hepatitis C: Continue outpatient GI follow-up. ??? History of paranoid schizophrenia: Not currently on any treatment, recommend outpatient follow-up with psychiatry. Total clinical time spent by myself addressing the patient's medical issues, reviewing all the data, and collaborating with patient's care team: 35 minutes. Physical Exam Const alert, oriented x3, no apparent distress and average body habitus Constitutional Narrative: Pleasant middle-age male, mildly fatigued appearing, otherwise laying comfortably in bed, conversing normally, no acute distress. General Appearance: cooperative and comfortable HEENT normocephalic, head/scalp atraumatic, hearing grossly normal bilaterally, nasal mucous membranes and turbinates normal and moist oral mucous membranes Eyes PERRL, EOMs intact bilaterally and conjunctivae normal Neck full ROM Chest inspection of chest normal Resp normal respiratory effort, normal air movement, no use of accessory muscles and clear to auscultation bilaterally Cardio regular rate, regular rhythm, no murmurs and peripheral pulses 2+ throughout GI normal to inspection, nondistended, normoactive bowel sounds, soft to palpation, non-tender and non- distended Back/Spine normal ROM Extremity normal to inspection, full ROM and no pedal edema Skin no rashes or lesions noted Neuro moves all extremities and no focal motor deficits Speech: speech normal Psych mental status grossly normal Weight / BMI Weight Weight: 89.6 kg Body Mass Index (BMI) 29.1 ABG / Lab / Microbiology Data 03/17/24 08:00 03/17/24 08:00 D/C Instructions Discharge Diet: No restrictions Meaningful Use Info Meaningful Use Meaningful Use Diagnoses (Choose all that apply): None applica (more content not included)...[facility]02-28-[address] Jeff [facility] November 25, 2022 11:37pm Note Date/Time November 25, 2022 11:11pm [facility] Medical Records Department [address] [place] [address] Emergency Department Summary 11/25/22 MR#: [id number] Acct: [id number] Name: KHANH DE LA VEGA Jr. Rep #:[id number] : 1985 37 From: Elijah Jeff MD PCP: Care Physician,No Primary Status :REG ER Location: ED HPI History of Present Illness Chief Complaint: Upper Extremity Injury Informant: patient Narrative Narrative: Patient presents with right wrist pain. He states he was shoveling snow severalweeks ago. He pulled hard on a heavy load of snow. He felt a strain in his right wrist. He is left-hand dominant. He states now every time he lifts something heavy the wrist feels like it has a muscle strain in it. It is not popping or clicking. But is also not getting better. No real therapy has been tried. He has history of having a pin of a fracture of the right index finger but no known prior injury to the right wrist. Denies any other injuries. 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) Tobacco abuse Home Medications naproxen 500 mg tablet 500 mg PO BID #14 tabs 11/25/22 [Rx Last Taken Unknown] Allergy/AdvReac Type Severity Reaction Status Date / Time Penicillins [PCN] Allergy Swelling Verified 11/25/22 23:06 Sulfa (Sulfonamide Allergy Swelling Verified 11/25/22 23:06 Antibiotics) Social History Smoking Status: Current every day smoker tobacco type: cigarettes ROS ROS ED Constitutional Constitutional ED: Denies chills, fever(s), subjective or sweats Gastrointestinal Gastrointestinal: Denies nausea or vomiting Musculoskeletal Musculoskeletal: Reports other Details: See history of present illness. ; Denies myalgias Integumentary Denies Abrasions or rash Neurologic Neurologic: Denies paresthesias or weakness Hematologic/Lymphatic Hematologic/Lymphatic: Denies easy bleeding, easy bruising or lymphadenopathy EXAM Physical Exam Narrative Exam Narrative: Patient sitting comfortably in the bed. He is texting on his phone when I see him. He looks nontoxic. HEENT shows no sign of trauma. Cardiorespiratory shows easy unlabored breathing. Abdomen is nontender Extremity: He is points mostly to the dorsum of his wrist as the area of pain. I do not see any swelling or deformity. It is not red. It is not warm. I can passively or actively move it without any notable pain. I do note what appears to be a track dequan in his left upper arm. But he states he used to use heroin and inject but is not doing that now. On his exam there is no indication of a septic joint. Neurologically patient has intact sensation. Const Vital Signs: 11/25/22 23:04 Temperature 98.1 F Temperature Source Temporal Pulse Rate 104 H Respiratory Rate 15 Blood Pressure 127/98 H Blood Pressure Mean 107 Pulse Ox 97 Oxygen Delivery Method Room Air MDM MDM MDM Narrative Medical decision making narrative: My independent interpretation of 4 view x-rays of the patient's right wrist show no sign of fracture or dislocation. No sign of AVN or acute abnormality. Final reading by radiology is no acute fracture or dislocation. We will place the patient in a splint. I will also provide some nonsteroidals but I think splint and resting is appropriate. If he develops worsening pain or certainly any swelling or fevers he needs to return. At this point there is no indication of infection. Discharge Plan Triage Chief Complaint: Upper Extremity Injury ED Provider: Elijah Jeff Dx/Rx/DC Orders Clinical Impression: Strain of wrist, right Instructions: ED Wrist Sprain Prescriptions: New naproxen 500 mg tablet 500 mg PO BID Qty: 14 0RF Primary Care Provider: Care Physician,No Primary Referrals: Julio Mcmillan MD [Med Staff - Active Staff] - 1 Week if not improving Care Physician,No Primary [Primary Care Provider] - Disposition Disposition: Home, Self Care What to do if you have Problems For any increased pain, shortness of breath, bleeding, nausea or vomiting, chestpain, or any unexpected problems, contact your Primary Care Provider. Call [facility] ([phone]) or report to the closest Emergency Room. Call 911 if necessary. 11/25/222336 <Electronically signed by Elijah Jeff MD> Cosigner Signature (if applicable): CC: No Primary Care Physician ~ Signed [facility] Work Phone: 1(120) 891-861410-18-2022 NoteHospitalist Discharge Summary Khanh De La Vega : 1985 Admit date: 07/14/2022 Discharge date: 07/15/2022 Admitting Physician: Richard Mcfarland MD Primary Care Physician: No primary care provider on file. Visit Status: Admission Code Status: Full Code Discharge Diagnoses: Acute traumatic rhabdomyolysis due to fall>>better Acute renal insufficiency due to above Amphetamine use Mechanical fall Psychiatric history Diagnosis Date Depression Paranoid ideation (HCC) Paranoid schizophrenia (HCC) Procedures: labs Hospital Course: See discharge diagnoses list above and medication adjustments below in med rec.The patient is discharged in improved and stable condition. Consults: IP CONSULT TO PSYCHIATRY Discharge Instructions: Diet: ADULT DIET; Regular Activity: as tolerated Recommended Outpatient Tests: Disposition: Patient discharged in stable condition to Home. Greater than 30 minutes spent discharging the patient and coming up with patient discharge plan. Vitals: BP (!) 103/58 Pulse 73 Temp 97.7 ?F (36.5 ?C) (Temporal) Resp 18 SpO2 99% Pulse Ox: SpO2 Av.3 % Min: 95 % Max: 99 % Supplemental O2: General appearance: No apparent distress, appears stated age and cooperative with exam HEENT: Normal cephalic, atraumatic without obvious deformity. Pupils equal, round, and reactive to light. Extra ocular muscles intact. Conjunctivae/corneas clear. Neck: Supple, with full range of motion. No jugular venous distention. Trachea midline. No lymphadenopathy. Respiratory: Normal respiratory effort. Clear to auscultation, bilaterally without Rales/Wheezes/Rhonchi. Cardiovascular: Regular rate and rhythm with normal S1/S2 without murmurs, rubs or gallops. Abdomen: Soft, non-tender, non-distended with normal bowel sounds. No rebound or guarding. Musculoskeletal: No clubbing, cyanosis or edema bilaterally. Full range of motion without deformity, +2 peripheral pulses in all extremities. Skin: Skin color, texture, turgor normal. No rashes or lesions. Neurologic: Neurovascularly intact without any focal sensory/motor deficits. Cranial nerves: II-XII intact, grossly non-focal. Discharge Medications: Medication List CONTINUE taking these medications calamine lotion Apply topically as needed. citalopram 20 MG tablet Commonly known as: CELEXA Take 1 tablet by mouth daily diclofenac 50 MG EC tablet Commonly known as: VOLTAREN Take 1 tablet by mouth 2 times daily hydrOXYzine pamoate 50 MG capsule Commonly known as: VISTARIL Take 1 capsule by mouth every 6 hours as needed for Anxiety ibuprofen 800 MG tablet Commonly known as: ADVIL;MOTRIN Take 1 tablet by mouth every 8 hours as needed for Pain permethrin 1 % liquid Commonly known as: NIX Apply scalp to toes. Leave on 12 hours then wash off. traZODone 50 MG tablet Commonly known as: DESYREL Take 1 tablet by mouth nightly as needed for Sleep Recommended Follow-up: No follow-up provider specified. Readmission Risk Risk of Unplanned Readmission: 12 Complexity of Follow up: [] Moderate Complexity: follow up within 7-14 calendar days (91876) [x] Severe Complexity: follow up within 7 calendar days (47289) Follow up Testing, Pending results or Referrals at Transitional Care Visit: [x] yes [] no Instructions to MA: Please call patient on day after discharge (must document patient contacted within 2 business days of discharge). Follow up questions for MA: 1. Did you get medications filled and taking them as instructed from discharge? 2. Are you following your discharge instructions from your hospital stay? 3. Please confirm patient is scheduled for a follow up appointment within the above time frame. Signed: Ziyad Mcleod DO [facility] [place] [place] 07/15/2022, 12:14 [facility]10-18-2022 Hospital Discharge instructions* Discharge Instr - Activity* Ziyad Mcleod DO - 07/15/2022 12:13 PM EDT As tolerated * Discharge Instr - Diet* Ziyad Mcleod DO - 07/15/2022 12:14 PM EDT Good nutrition is important when healing from an illness, injury, or surgery. Follow any nutrition recommendations given to you during your hospital stay. If you were given an oral nutrition supplement while in the hospital, continue to take this supplement at home. You can take it with meals, in-between meals, and/or before bedtime. These supplements can be purchased at most local grocery stores, pharmacies, and [employer]. If you have any questions about your diet or nutrition, call the hospital and ask for the dietitian. documented in this [facility] Work Phone: 1(704) 828-242510-17-2022 History of Present illness Narrative* Janis Bruner RN - 07/14/2022 12:49 PM EDT Patient is too lethargic to complete admission questions at this time. Attempted multiple times andthe patient falls back to sleep mid sentence. Patient states he does not know his home medications.Patient also states he will need a nicotine patch. Patient states the only recreational drug he uses is marijuana. documented in this [facility] Work Phone: Evaluation + Plan note No data available for this section [facility] Evaluation noteNo assessment information available [facility] Work Phone: Evaluation note* Diagnosis Non-traumatic rhabdomyolysis- Primary Rhabdomyolysis documented in this encounter [facility] Work Phone: Evaluation note* Diagnosis Urinary incontinence, unspecified type- Primary [facility] Additional Instructions Your symptoms and work-up indicate you have a viral stomach infection. This will last anywhere from 1 day to a week with the average being 3 days. Keep yourself well-hydrated and use the medication as directed to control symptoms. Please return to the ER should you have any [facility]WK[facility] Work Phone: Hospital Discharge instructions No data available for this section [facility] Hospital Discharge instructions Additional Instructions Motrin and Tylenol for pain. Clean the area of your left earlobe daily with soap and water peroxide and water to prevent infection. Apply antibiotic ointment daily. The antibiotic Keflex 1 pill 3 times a day for 3 days help try to prevent infection. Do not put the earring back in at this time it will increase the risk of infection and get stuck again. Wait to the swelling goes down and follow-up with your person that pierced her ear.[facility] Work Phone: Progress note No data available for this section [facility] Reason for referral (narrative)No reason for referral information availableWKettering Health [facility] Work Phone: Summary Purpose Family History No Family History Records Found Relationship Condition Age at Onset Recorded Date/T mehrdad Unknown Family History?No pe rtinent history Unknown July 13, 2020 6:52pm Family History?No pe rtinent history Unknown July 13, 2020 6:52pm Relationship Condition Age at Onset Recorded Date/T mehrdad Unknown Family History?No pe rtinent history Unknown July 13, 2020 5:52pm Family History?No pe rtinent history Unknown July 13, 2020 5:52pm Advance Directives No Advanced Directives Records Found Advance Directive Response Recorded Date/ Time Living Will No March 31, 2022 7 :24pm Power of Accounting Advisory Services Manager No March 31, 2022 7:24pm Latest Code Status on File Code Status Date Activated Date Inactivated Comments Full Code 07/14/2022 9:52 AM Full Code 12/18/2017 7:03 AM 12/20/2017 6:51 PM Advance Directive Response Recorded Date/ Time Living Will No July 20 2:21am Power of Accounting Advisory Services Manager No July 20, 2022 2:21am Advance Directive Response Recorded Date/ Time Living Will No November 25, 11:13pm Power of Accounting Advisory Services Manager No November 25, 2022 11:13pm Advance Directive Response Recorded Date/ Time Living Will No December 22, 2022 2:41am Power of Accounting Advisory Services Manager No December 22 2:41am Advance Directive Response Recorded Date/ Time Living Will No November 18, 024 1:02am Power of Accounting Advisory Services Manager No November 18, 2023 1:02am Date Activated Date Inactivated Comments 08/02/2020 6:50 PM 08/08/2020 10:41 PM Question Answer Comments Full Code Order Discussed With: Patient Advance Directive Response Recorded Date/ Time Living Will No November 05 1:38am Do you have a Healthcare Power of Accounting Advisory Services Manager? No November 05, 2024 1:38am Living Will No December 24, 2024 6:33pm Do you have a Healthcare Power of Accounting Advisory Services Manager? No December 24, 2024 6:33pm Hospital Course Note HNO ID: [id number] Author: Farhad forbes (Res) [facility] Service: Hospital Medicine Author Type: Resident Type: Discharge Summary Filed: 07/31/2020 5:21 PM Note Text: Attestation signed by Dimas Alicia at 07/31/2020 11:43 PM Attending Note I personally saw and examined the patient on July 31, 2020. I reviewed the resident's note. I agree with the resident's assessment and plan unless otherwise noted. Signature: Dimas Alicia MD Date: 07/31/2020 Time: 11:43 PM Pager: [phone] DISCHARGE SUMMARY PATIENT NAME: Khanh De La Vega ADMISSION DATE: 07/17/2020 DISCHARGE DATE: 07/31/2020 Attending Physician: Dimas Alicia Code Status: Not on file Highest Readmission Risk Score: 22 The 30 day readmissions risk score is derived from an internally validated risk model which evaluates patient level characteristics, utilization history, medication ord (more content not included)... Note HNO ID: [id number] Author: Emanuel gonzalez (Rodríguez) Cristopher Service: Hospital Medicine Author Type: Resident Type: Discharge Summary Filed: 08/08/2020 3:46 PM Note Text: Attestation signed by Elijah Hill at 08/08/2020 5:36 PM DC Time 35 min DISCHARGE SUMMARY PATIENT NAME: Khanh De La Vega ADMISSION DATE: 08/02/2020 DISCHARGE DATE: 08/08/2020 Attending Physician: Elijah Hill Code Status: Full Code Highest Readmission Risk Score: 22 The 30 day readmissions risk score is derived from an internally validated risk model which evaluates patient level characteristics, utilization history, medication orders and lab results up until the day of discharge. Patients with a score of 40 or above are considered highest risk for readmission. Specific patient level drivers will be listed at the bottom of the summary. The 30 day readmissions risk (more content not included)... Chief Complaint and Reason for Visit Chief Complaint chest pain Chief Complaint chest pain toe infection Chief Complaint RIGHT WRIST PAIN Chief Complaint RIGHT WRIST PAIN nausea vomiting Chief Complaint Wound Chief Complaint Admit Date Toe numb November 04, 2024 1 0:30pm BACK OF EARING STUCK IN EAR December 24, 2024 6:11pm Additional Source Comments (unrecognized sect ion and content) No Status Records FoundNo Status Records FoundNo Status Records FoundNo Status Records FoundNo Status Records FoundNo Status Records FoundNo Status Records FoundNo Status Records FoundNo Status Records Found INFORMATION SOURCE (unrecogn ized section and content) DATE CREATED AUTHOR 03/23/2018 Kuldeep Richardsonmireya [facility] DATE CREATED AUTHOR AUTHOR'S ORGANIZ ATION 04/01/2018 [facility] DATE CREATED AUTHOR AUTHOR'S ORGANIZ ATION 08/09/2020 [facility] DATE CREATED AUTHOR AUTHOR'S ORGANIZ ATION 08/18/2020 [facility] DATE CREATED AUTHOR AUTHOR'S ORGANIZ ATION 07/20/2022 [facility] DATE CREATED AUTHOR AUTHOR'S ORGANIZ ATION 07/22/2022 [facility] DATE CREATED AUTHOR AUTHOR'S ORGANIZ ATION 03/12/2024 [facility] ([place]) DATE CREATED AUTHOR AUTHOR'S ORGANIZ ATION 08/08/2024 [facility] DATE CREATED AUTHOR AUTHOR'S ORGANIZ ATION 01/01/2025 [facility] Goals (unrecognized section and content) Goals may be documented in a n alternate sectionGoals may be documented in an alternate sectionGoals may be documented in an alternate sectionGoals may be documented in an alternate sectionGoals may be documented in an alternate section No data available for this sectionGoals may be documented in an alternate section Reason for Visit (unrecogniz ed section and content) Reason Comments Chest Pain Left sided x1 hour Scheduled Active and Recently Administ ered Medications (unrecognized section and content) Medication Order 07/13/2022 07/14/2022 07/15/2022 0.9 % sodium chloride bolus (COMPLETED) 1,000 mL, IntraVENous, at 495.9 mL/hr, Administer over 121 Minutes, ONCE, On Thu07/14/22 at 0717, For 1 dose 0726 (New Bag - Provider: Juan Grant)1011 (Stopped - Provider: Laura Hooks RN) enoxaparin (LOVENOX) injection 40 mg 40 mg, SubCUTAneous, DAILY, First dose on Thu07/14/22 at 0953, Until Discontinued, Indication of Use: Prophylaxis-DVT/PE 1341 (Not Given - Provider: Janis Bruner RN - Reason: Patient/family refused) 1042 (Not Given - Provider: Janis Bruner RN - Reason: Patient/family refused) nicotine (NICODERM CQ) 14 MG/24HR 1 patch 1 patch, TransDERmal, Administer over 24 Hours, DAILY, First dose on Thu07/14/22 at 1830, Apply new patch to nonhairy, clean, dry skin on the upper body or upper outer arm. Rotate patch sites. Notify pharmacy if patient or provider prefers patch to be removed at bedtime and replaced in the morning. Hazardous Medication -- Refer to facility policy for handling and disposal. 2144 (Patch Applied - Provider: Marley Pappas RN) 0826 (Patch Removed - Provider: Janis Bruner RN)1046 (Patch Applied - Provider: Janis Bruner RN) potassium chloride (KLOR-CON M) extended release tablet 40 mEq 40 mEq, Oral, ONCE, 1 dose, On Thu07/15/22 at 1230, Do not crush, chew, or suck on tablet. Tablet may also be broken in half and each half swallowed separately. 1230 (Due) sodium chloride flush 0.9 % injection 5-40 mL 5-40 mL, IntraVENous, EVERY 12 HOURS SCHEDULED (2 times per day), First dose on Thu07/14/22 at 0953, Until Discontinued, For Line Patency: Peripheral IV = 5 mL; Midline or Central Line = 10 mL/lumen. If following IV push medication, administer flush at same rate as the IV push. Flush volume is determined by type of infusion therapy being given. For non-viscous solutions use: Peripheral IV = 5 mL Midline or Central Line = 10 mL/lumen For viscous solutions (i.e. blood components, parenteral nutrition, contrast media, or after obtaining blood sample) use: Peripheral IV = 10 mL Midline or Central Line = 20 mL/lumen 1341 (Given - Provider: Janis Bruner RN)2100 (Given - Provider: Marley Pappas RN) 1048 (Not Given - Provider: Janis Bruner RN - Reason: IV Fluid Infusing)2100 (Due) Continuous Medication Order 07/13/2022 07/14/2022 07/15/2022 0.9 % sodium chloride infusion IntraVENous, at 125 mL/hr, CONTINUOUS, Starting on Thu07/14/22 at 0953 1340 (New Bag - Provider: Janis Bruner RN)2332 (New Bag - Provider: Marley Pappas RN) PRN Medication Order 07/13/2022 07/14/2022 07/15/2022 0.9 % sodium chloride infusion IntraVENous, at 5-250 mL/hr, PRN, if patient receiving piggyback infusions and maintenance fluids are not ordered OR KVO fluids to protect IV site / prevent frequent line interruptions/ long duration, Starting on Thu07/14/22 at 0952, For piggyback infusion, administer at same rate as piggyback for a total of 25 mL. Enter 25 mL into dose field and piggyback rate into rate field of order. If piggyback is infusing at a rate less than 100 mL/hr, enter 25 mL into dose field and 100 mL/hr into rate field of order. For KVO fluids, enter rate of 20 mL/hr or less into rate field of order. acetaminophen (TYLENOL) suppository 650 mg(Linked Group 1) 650 mg, Rectal, EVERY 6 HOURS PRN, Starting on Thu07/14/22 at 0952, Until Discontinued, Pain Mild (1-3), Fever, For temp greater than 100.4 F (38 C), Administer if oral route cannot be used. 2145 (See Alternative - Provider: Marley Pappas RN) 1047 (See Alternative - Provider: Janis Bruner, INDY) acetaminophen (TYLENOL) tablet 650 mg(Linked Group 1) 650 mg, Oral, EVERY 6 HOURS PRN, Starting on Thu07/14/22 at 0952, Until Discontinued, Pain Mild (1-3), Fever, For temp greater than 100.4 F (38 C), Maximum dose of acetaminophen is 4000 mg from all sources in 24 hours. 2145 (Given - Provider: Marley Pappas RN) 1047 (Given - Provider: Janis Bruner, INDY) hydrOXYzine HCl (ATARAX) tablet 50 mg 50 mg, Oral, EVERY 6 HOURS PRN, Starting on Thu07/14/22 at 0954, Until Discontinued, Anxiety 2056 (Given - Provider: Marley Pappas, INDY) 1047 (Given - Provider: Janis Bruner, INDY) melatonin tablet 5 mg 5 mg, Oral, NIGHTLY PRN, Starting on Thu07/14/22 at 2100, Until Discontinued, Sleep ondansetron (ZOFRAN) injection 4 mg(Linked Group 2) 4 mg, IntraVENous, EVERY 6 HOURS PRN, Starting on Thu07/14/22 at 0952, Until Discontinued, Nausea, Vomiting, Administer if oral route cannot be used. ondansetron (ZOFRAN-ODT) disintegrating tablet 4 mg(Linked Group 2) 4 mg, Oral, EVERY 8 HOURS PRN, Starting on Thu07/14/22 at 0952, Until Discontinued, Nausea, Vomiting polyethylene glycol (GLYCOLAX) packet 17 g 17 g, Oral, DAILY PRN, Starting on Thu07/14/22 at 0952, Until Discontinued, Constipation, First line therapy for constipation sodium chloride flush 0.9 % injection 5-40 mL 5-40 mL, IntraVENous, PRN, Starting on Thu07/14/22 at 0952, Until Discontinued, Line Care, After every IV line use, For Line Patency: Peripheral IV = 5 mL; Midline or Central Line = 10 mL/lumen. If following IV push medication, administer flush at same rate as the IV push. Flush volume is determined by type of infusion therapy being given. For non-viscous solutions use: Peripheral IV = 5 mL Midline or Central Line = 10 mL/lumen For viscous solutions (i.e. blood components, parenteral nutrition, contrast media, or after obtaining blood sample) use: Peripheral IV = 10 mL Midline or Central Line = 20 mL/lumen tiZANidine (ZANAFLEX) tablet 4 mg 4 mg, Oral, EVERY 6 HOURS PRN, Starting on Thu07/14/22 at 2205, Until Discontinued, Muscle spasms 2327 (Given - Provider: Marley Pappas RN) 1046 (Given - Provider: Janis Bruner RN) Linked Groups Order Group 1: acetaminophen (TYLENOL) tablet 650 mgJump to med 650 mg, Oral, EVERY 6 HOURS PRN, Starting on Thu07/14/22 at 0952, Until Discontinued, Pain Mild (1-3), Fever, For temp greater than 100.4 F (38 C)
Maximum dose of acetaminophen is 4000 mg from all sources in 24 hours.
Or acetaminophen (TYLENOL) suppository 650 mgJump to med 650 mg, Rectal, EVERY 6 HOURS PRN, Starting on Thu07/14/22 at 0952, Until Discontinued, Pain Mild (1-3), Fever, For temp greater than 100.4 F (38 C)
Administer if oral route cannot be used.
Group 2: ondansetron (ZOFRAN-ODT) disintegrating tablet 4 mgJump to med 4 mg, Oral, EVERY 8 HOURS PRN, Starting on Thu07/14/22 at 0952, Until Discontinued, Nausea, Vomiting Or ondansetron (ZOFRAN) injection 4 mgJump to med 4 mg, IntraVENous, EVERY 6 HOURS PRN, Starting on Thu07/14/22 at 0952, Until Discontinued, Nausea, Vomiting
Administer if oral route cannot be used.
Care Teams (unrecognized sec tion and content) Team Status: Active Member Role Status Dates No Primary Care Physician Family Provider Active No Primary Care Physician Primary Care Provider Active Team Status: Inactive Member Role Status Dates No Primary Care Physician Primary Care Provider Active Dr. Elijah Jeff MD Emergency Provider Active Team Status: Inactive Member Role Status Dates No Primary Care Physician Primary Care Provider Active Dr. Elijah Jeff MD Attending Provider, Emergency Provider Active Team Status: Inactive Member Role Status Dates No Primary Care Physician Primary Care Provider Active Dr. Joseph Taylor DO Emergency Provider Active Team Status: Active Member Role Status Dates No Primary Care Physician Primary Care Provider Active Team Status: Inactive Member Role Status Dates No Primary Care Physician Primary Care Provider Active Start: November 04, 2024 End: November 05, 2024 Dr. Joseph Taylor DO Attending Provider Active Start: November 04, 2024 End: November 05, 2024 Dr. Joseph Taylor DO Emergency Provider Active Start: November 04, 2024 End: November 05, 2024 Team Status: Inactive Member Role Status Dates No Primary Care Physician Primary Care Provider Active Start: December 24, 2024 End: December 24, 2024 Dr. Murali Del Toro MD Emergency Provider Active S tart: December 24, 2024 End: December 24, 2024 Source Comments (unrecognize d section and content) In the event this informatio n is protected by the Federal Confidentiality of Alcohol and Drug Abuse Patient Records regulations: The Federal rules restrict any use of the information to criminally investigate or prosecute any alcohol or drug abuse patient.[facility] FOR RECORDS PERTAINING TO PATIENTS WHO ARE OR HAVE BEEN ENROLLED IN A CHEMICAL DEPENDENCY/SUBSTANCEABUSE PROGRAM, SOME INFORMATION MAY BE OMITTED. This clinical summary was aggregated from multiple sources. Caution should be exercised in using it in the provision of clinical care. This summary normalizes information from multiple sources, and as a consequence, information in this document may materially change the coding, format and clinical context of patient data. In addition, data may be omitted in some cases. CLINICAL DECISIONS SHOULD BE BASED ON THE PRIMARY CLINICAL RECORDS. [facility]. provides no warranty or guarantee of the accuracy or completeness of information in this document.
== END 2025-03-26 11:57 | disposition home or self-care (01) ==
LOC: ED 11:51
PROVIDERS: Emergency Provider Emergency Medicine; Visit Provider Emergency Medicine
DX: K04.7 Periapical abscess without sinus (principal); K02.9 Dental caries, unspecified; F17.210 Nicotine dependence, cigarettes, uncomplicated; F17.290 Nicotine dependence, other tobacco product, uncomplicated
CPT/HCPCS: 96372; 99283

== ENCOUNTER 2025-06-25 21:49 | Emergency (ER) | payer MEDICAID, SELFPAY ==
--- OUTSIDE RECORDS SUMMARY | 2025-03-28 05:46 | XMS RPT_ITS ---
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28/2025 Admitting Diagnosis Dysuria / R30.0(ICD-10) RAS HOOKS Active [facility] 03/28/2025 Admitting Diagnosis Hematuria, unspecified / R31.9(ICD-10) RAS HOOKS Active [facility] PROCEDURES No Procedure Records Found RESULTS 36 Observed: 03/30/2025 9:05 AM Status: COMPLETED Source: [facility] Referral received for dysuri a and hematuria. Reached out to pt, phone just rings without being answered. BASIC METABOLIC PANEL Collected: 2024 7:36 AM Status: F Source: [facility] TYPE CODE TESTS RESULT OUT OF RANGE REFERENCE UNITS LAB 8836154 SODIUM 139 136-145 mmol/L LAB 7807109 POTASSIUM 3.9 3.5-5.1 mmol/L Result Comment: Plasma potas sium values may be up to 0.5 mmol/L lower than serum values. LAB 4575758 CHLORIDE 105 98-107 mmol/L LAB 0352733 CARBON DIOXIDE 24 22-29 mmol/L LAB 1059951 UREA NITROGEN 19 8-21 mg/dL LAB 7011551 CREATININE 0.84 0.72-1.25 mg/dL LAB 5626231 GLUCOSE 108 High 74-100 mg/dL LAB 0405069 CALCIUM 9.2 8.4-10.2 mg/dL LAB [id number] ANION GAP (HARRISON, CALCULATED) 10 3-13 mmol/L LAB 6023210 GLOMERULAR FILTRATION RATE ML/MIN/1.73 SQ M.PREDICTED >90.0 >60.0 mL/min/1. 73m*2 Result Comment: Calculation based on the Chronic Kidney Disease Epidemiology Collaboration (CKD-EPI) equation refit without adjustment for race Performed By: #### [id number] #### Veterinary Anatomist: EMMA LORENZANA ([id number]) [facility] ([facility]) [address] [place] [address] CK Collected: 7:36 AM Status: F Source: [facility] TYPE CODE TESTS RESULT OUT OF RANGE REFERENCE UNITS LAB [id number] CK 154 30-185 U/L Performed By: #### [id number] #### Veterinary Anatomist: EMMA LORENZANA ([id number]) [facility] ([facility]) [address] [place] [address] COMPLETE URINALYSIS WITH REFLEX TO CULTURE Collected: 03/28/2025 7:00 AM Status: F Source: [facility] TYPE CODE TESTS RESULT OUT OF RANGE REFERENCE UNITS LAB 8096070 COLOR OF URINE Yellow Lt. Yellow LAB 6660900 CLARITY OF URINE Turbid Abnormal Clear LAB 7690726 PH OF URINE 6.0 5.0-8.0 pH LAB 4065282 LEUKOCYTE ESTERASE PRESENCE IN URINE BY TEST STRIP Negative Negative Bert/uL LAB 3602114 NITRITE PRESENCE IN URINE Negative Negative LAB 2292710 PROTEIN (MG/DL) IN URINE BY TEST STRIP 10 Abnormal Negative mg/dL LAB 7489154 GLUCOSE (MG/DL) IN URINE Normal Normal (<70) mg/dL LAB 9103515 BILIRUBIN, TOTAL PRESENCE IN URINE Negative Negative mg/dL LAB 548 KETONES (MG/DL) IN URINE Negative Negative mg/dL LAB 19 UROBILINOGEN (MG/DL) IN URINE 3 Abnormal Normal (0-1) mg/dL LAB 549 HEMOGLOBIN PRESENCE IN URINE Negative Negative mg/dL LAB 6832770 RBC (#/HPF) IN URINE SEDIMENT 3-5 Abnormal 0-2 /HPF LAB 1553053 WBC (LEUKOCYTE) (#/HPF) IN URINE SEDIMENT 3-5 0-5 /HPF LAB 5708227 SQUAMOUS EPITHELIAL CELLS (#/HPF) IN URINE SEDIMENT Negative 3-5 /HPF LAB 4984692 BACTERIA (#/HPF) IN URINE Negative Negative /HPF LAB 194 MUCUS (#/LPF) IN URINE SEDIMENT Moderate Abnormal Negative /LPF LAB 70 HYALINE CASTS (#/LPF) IN URINE SEDIMENT BY MICROSCOPY 3-5 Abnormal Negative /LPF LAB 8050720 CALCIUM OXALATE CRYSTALS (#/HPF) IN URINE Moderate Abnormal Negative /HPF LAB 1199 SPECIFIC GRAVITY OF URINE (NUMERIC) 1.031 High 1.005-1.030 Result Comment: ORDER COMMEN TS: A specimen with <=10 WBC is not consistent with inflammation. This specimen will not reflex to a urine culture. Performed By: #### [id number] #### Veterinary Anatomist: EMMA LORENZANA ([id number]) [facility] ([facility]) [address] [place] [address] #### [id number] #### Veterinary Anatomist: STEFANIE ALVAREZ ([id number]) [facility] ([facility]) [address] [place] [address] URINE CULTURE Observed: 03/28/2025 7:00 AM Status: F Source: [facility] URINE CULTURE Reference No growth (<1,000 CFU/mL) [ S = SUSCEPTIBLE R = RESISTANT I = INTERMEDIATE S-DD = Susceptible-dose dependent NS = Non-susceptible NO = No Interpretation ] Performed By: #### [id number] #### Veterinary Anatomist: EMMA LORENZANA ([id number]) [facility] ([facility]) [address] [place] [address] #### [id number] #### Veterinary Anatomist: STEFANIE ALVAREZ ([id number]) [facility] ([facility]) [address] [place] [address] ED NURSING NOTE Observed: 03/28/2025 6:39 AM Status: COMPLETED Source: [facility] Patient still unable to urin ate. Drinking 2nd cup of water. ED NURSING NOTE Observed: 03/28/2025 6:18 AM Status: COMPLETED Source: [facility] Patient given urine cup and aware of need for urine specimen. Given water per request. ED PROVIDER NOTE Observed: 03/28/2025 5:39 AM Status: COMPLETED Source: [facility] Patient initially seen by Dr Shavonne Mckeon. Patient has been on Suboxone for about a month and a half. Reports eating taking fluids well. He reports he has had problems with incontinence as a child and even some incontinence at night but always noticed during the day he will have this urge to urinate and then gets some burning and he does have some incontinence with it. He knows when it is coming on. He reports no new back pain. No saddle anesthesia no radicular symptoms he is ambulatory. No trauma. He does not feel sick or ill. He is eating taking fluids well. Heart is regular. Lungs are clear. Abdomen is soft. Neurologically is intact strength sensation reflexes intact. He has no back pain. He is ambulating with steady gait. Reviewing his records he had a history of rhabdomyolysis back in 2021. His urine does show protein urobilinogen RBCs it is negative for leukocytes nitrates and bacteria. Given this finding I think it is reasonable to check a CK and a BMP. Patient has normal creatinine. Normal kidney function. Patient will be discharged to home after urine cultured and follow-up with urology. Patient has no pain to indicate kidney stone. He has normal kidney function. Certainly within the differential is kidney stone painless hematuria which could be bladder mass I do not believe CT is indicated. Patient is 39 years old. I believe this can be further worked up as an outpatient given that this is not a completely new presentation. There is no signs of infection but we will send his urine for culture. Comment: Please note this report has been produced using speech recognition software and may contain errors related to that system including errors in grammar, punctuation, and spelling, as well as words and phrases that may be inappropriate. If there is any questions or concerns please feel free to contact the dictating provider for clarification. Ras Hooks MD 03/28/25 08 Ras Hooks MD 03/28/25 0803 ED PROVIDER NOTE Observed: 03/28/2025 5:39 AM Status: COMPLETED Source: [facility] EMERGENCY DEPARTMENT [facility] ER Pt Name: Silm De La Vega Birthdate 1985 Date of evaluation: 03/28/2025 ED Provider: Royal Mckeon MD CHIEF COMPLAINT Chief Complaint Patient presents with Urinary Frequency Patient notes he has been having episodes of incontinence. HISTORY OF PRESENT ILLNESS I wore appropriate PPE for the entirety of this encounter. MARY De La Vega is a 39 y.o. male who presents to the emergency department stating that he is having worse incontinence of urine. He states that he has always had this to some extent. He states that it began with bedwetting as a child. The incontinence of urine usually would occur at night. He states that he is now having incontinence of urine during the day. He states that this has been occurring for the last month. He does have some burning with urination as well. He is not having any back pain. There is been no fever or chills. He currently is on Suboxone but denies intravenous drug use at this time. There has been no stool incontinence. Nursing Notes were reviewed. Limitations to history: None Outside historians: None REVIEW OF SYSTEMS Review of Systems Constitutional: Negative for chills and fever. HENT: Negative for ear pain and sore throat. Eyes: Negative for pain and visual disturbance. Respiratory: Negative for cough and shortness of breath. Cardiovascular: Negative for chest pain and palpitations. Gastrointestinal: Negative for abdominal pain and vomiting. Genitourinary: Positive for dysuria, enuresis and frequency. Negative for hematuria. Musculoskeletal: Negative for arthralgias and back pain. Skin: Negative for color change and rash. Neurological: Negative for seizures and syncope. All other systems reviewed and are negative. PAST MEDICAL HISTORY Medical History[1] SURGICAL HISTORY Surgical History[2] CURRENT MEDICATIONS There are no discharge medications for this patient. ALLERGIES Penicillins and Sulfa antibiotics FAMILY HISTORY Family History[3] SOCIAL HISTORY Social History[4] SCREENINGS PHYSICAL EXAM ED Triage Vitals [03/28/25 0545] Temp Heart Rate Resp BP (!) 35.8 ?C (96.5 ?F) 88 16 131/89 SpO2 Temp Source Heart Rate Source Patient Position 98 % Temporal Monitor -- BP Location FiO2 (%) -- -- Physical Exam Vitals and nursing note reviewed. Constitutional: General: He is not in acute distress. Appearance: He is well-developed. Comments: The patient is a middle-age male found sitting in a chair. He is alert and oriented. He is afebrile. He is in no acute distress. HENT: Head: Normocephalic and atraumatic. Eyes: Conjunctiva/sclera: Conjunctivae normal. Cardiovascular: Rate and Rhythm: Normal rate and regular rhythm. Heart sounds: No murmur heard. Pulmonary: Effort: Pulmonary effort is normal. No respiratory distress. Breath sounds: Normal breath sounds. Abdominal: Palpations: Abdomen is soft. Tenderness: There is no abdominal tenderness. Musculoskeletal: General: No swelling. Cervical back: Neck supple. Skin: General: Skin is warm and dry. Capillary Refill: Capillary refill takes less than 2 seconds. Neurological: Mental Status: He is alert. Psychiatric: Mood and Affect: Mood normal. DIAGNOSTIC RESULTS RADIOLOGY (Per Emergency Physician): Interpretation per the Radiologist below, if available at the time of this note: No orders to display LABS: Labs Reviewed COMPLETE URINALYSIS WITH REFLEX TO CULTURE - Abnormal Result Value Color, Urine Yellow Clarity, Urine Turbid (*) pH, Urine 6.0 Leukocytes, Urine Negative Nitrite, Urine Negative Protein, Urine 10 (*) Glucose, Urine Normal Bilirubin, Urine Negative Ketones, Urine Negative Urobilinogen, Urine 3 (*) Blood, Urine Negative RBC, Urine 3-5 (*) WBC, Urine 3-5 Squamous Epithelial, Urine Negative Bacteria, Urine Negative Mucus, Urine Moderate (*) Hyaline Casts, Urine 3-5 (*) Calcium Oxalate Crystals, Urine Moderate (*) SPECIFIC GRAVITY OF URINE (NUMERIC) 1.031 (*) Narrative: A specimen with <=10 WBC is not consistent with inflammation. This specimen will not reflex to a urine culture. BASIC METABOLIC PANEL - Abnormal SODIUM 139 POTASSIUM 3.9 CHLORIDE 105 CARBON DIOXIDE 24 UREA NITROGEN 19 CREATININE 0.84 GLUCOSE 108 (*) CALCIUM 9.2 ANION GAP 10 eGFR >90.0 CK - Normal CK 154 URINE CULTURE, ORDERABLE Narrative: The following orders were created for panel order Urine culture. Procedure Abnormality Status --------- ------ Urine culture[[id number]] In process Urine Hold Cup[[id number]] Final result Please view results for these tests on the individual orders. URINE CULTURE URINE HOLD CUP Extra Tube Hold for add-ons. All other labs were within normal range or not returned as of this dictation. EMERGENCY DEPARTMENT COURSE and DIFFERENTIAL DIAGNOSIS/MDM: Vitals: Vitals: 03/28/25 0545 BP: 131/89 Pulse: 88 Resp: 16 Temp: (!) 35.8 ?C (96.5 ?F) TempSrc: Temporal SpO2: 98% Medications Administered in the ED: Medications - No data to display I Royal Mckeon MD am the optical glass wet inspector of record. PROCEDURES: Unless otherwise noted below, none Procedures Differential Diagnosis Considerations: The patient describes frequency and burning on urination with episodes of incontinence occurring over the last month. This raises the concern for cauda equina syndrome possibly related to an epidural abscess. However, the patient is not having any back pain. He states that he has had the symptoms lifelong although they usually occurred at night. He states they now occasionally occur during the day. ED testing and evaluation will be obtained to help differentiate these diagnostic possibilities and determine the most likely cause. Sources of History: I evaluated other historical sources including previous outpatient records and admission records. ED Course: In the emergency department I initially evaluated the patient with a history and physical examination in order to determine diagnostic testing and therapeutic care. On the basis of this history and physical examination a urinalysis will be obtained. Reassessment: Consideration of Admission/Observation: I considered admission for this patient, however, at this time the patient appears to be stable. I do not believe that the patient would benefit from admission at this time. I believe the patient can follow-up with the primary care physician. The patient is advised to return to the emergency department if symptoms change or worsen where admission may need to be considered at a another time. Independent Interpretation of Tests: I independently evaluated the results of the patient's diagnostic testing in the context of the patient's presentation. Diagnostic Tests Considered but not Performed: No other diagnostic tests are considered. I considered ordering a complete blood count. However, I do not believe that the results of a complete blood count would contribute to the patient's final disposition. Prescription Medications Considered but not Prescribed: No antibiotics will be prescribed until results of urinalysis have been obtained. Chronic Conditions Affecting Care: None FINAL IMPRESSION 1. Dysuria 2. Hematuria, unspecified type DISPOSITION Discharge 03/28/2025 08:02:19 AM PATIENT REFERRED TO: [facility] [address] [facility] [id number] In 1 week [facility] - [address] [facility] [id number] In 1 week DISCHARGE MEDICATIONS: There are no discharge medications for this patient. (Comment: Please note this report has been produced using speech recognition software and may contain errors related to that system including errors in grammar, punctuation, and spelling, as well as words and phrases that may be inappropriate. If there are any questions or concerns please feel free to contact the dictating provider for clarification.) Royal Mckeon MD (electronically signed) Emergency Medicine Provider [1] Past Medical History: Diagnosis Date Depression Paranoid ideation (HCC) Paranoid schizophrenia (CMS/HCC) (HCC) [2] History reviewed. No pertinent surgical history. [3] No family history on file. [4] Social History Socioeconomic History Marital status: Single Tobacco Use Smoking status: Every Day Current packs/day: 1.00 Types: Cigarettes Smokeless tobacco: Never Substance and Sexual Activity Alcohol use: Yes Drug use: Yes Types: Marijuana Royal Mckeon MD 03/29/25 0718 PROGRESS Observed: 08/06/2024 1:55 PM Status: COMPLETED Source: [facility] HNO ID: [id number] Author: INOCENCIO GRANT MD Service: ? Author Type: Physician Type: Progress Notes Filed: 08/06/2024 13:59 Note Text: [facility] Triage Note: Patient presents to the [facility] with complaint of needing a primary care provider to arrange prescription for incontinence supplies. He denies he has any acute issues, but was told there are no appointments to establish with a PCP for 3 months and to go to the [facility]. He is willing to schedule at another facility and scheduling was facilitated. ELIZABETH Observed: 08/06/2024 1:30 PM Status: COMPLETED Source: [facility] Office Visit (WSTR) SLIM DE LA VEGA ([id number]) 1985 M Date Time Provider Department 08/06/24 1:30 PM INOCENCIO GRANT [facility] During your visit today, we recorded the following information about you: Inocencio Grant MD 08/06/2024 1:59 PM Signed Express [facility] Triage Note: Patient presents to the [facility] care with complaint of needing a primary care [...] [U07.1] 07/22/2020 07/26/2020 Encounter Status:Closed by INOCENCIO GRANT on 08/06/24 ALLERGIES DATE TYPE / CODE NAME / CODE REACTION SEVERITY SOURCE 12/14/2017 Drug Class/625462045 (SNOMED CT) PENICILLINS SWELLING [facility] 12/14/2017 Drug Class/749100118 (SNOMED CT) SULFA (SULFONAMIDE ANTIBIOTICS) SWELLING [facility] ENCOUNTERS ADMIT/DISCHARGE ACCOUNT NUMBER ADMITTING ENCOUNTER CLASS LOC ATION SOURCE 03/28/2025/ 5 [id number] Emergency Buildin [id number][facility]/ [facility] [id number] [facility] PAYERS ENCOUNTER GUARANTOR PAYER SUBSCRIBER SOURCE 03/28/2025 Primary Insuranc e:[facility] MEDICAIDPolicy Number: [id number] Date:[id number] Name:Medicaid HMO SLIM SNIDER: [id number] [place] [address] [facility] 08/06/2024 Primary Insuranc e:[facility] [employer] MEDICAID [facility] Number: [id number] Date:1806-13-18Nlbm Name:Toya SNIDER: [id number] [place] [address] [facility]
[2025-06-25 21:50] VITALS: BP 125/80; PULSE 82; RESP 14; TEMP 36.9; O2SAT 97; BMI 26.4
--- NOTE | 2025-06-25 22:00 | ED.VIS.DENTA ---
HPI History of Present Illness Chief Complaint: Dental Narrative Narrative: 40-year-old male past medical history of previous dental pain, seen in the emergency department a few months ago, states he did not follow-up with a dentist, but is not the same tooth that is hurting him presents with 2 days worth of right upper jaw/dental pain. He is a smoker. He denies any fevers or chills, no difficulty swallowing, no exacerbating or alleviating factors. Taking ibuprofen without relief. He states he was unable to follow-up mainly because he is having a hard time finding a dentist that takes his insurance/medical card. She describes sharp pain in his right upper jaw. 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) Chronic dental pain Acute opioid withdrawal Home Medications Medication Instructions Recorded Last Taken Type polyethylene glycol 3350 17 17 g PO DAILY 7 days #119 grams 03/19/24 Unknown Rx gram/dose oral powder (Miralax) sennosides 8.6 mg capsule (senna) 8.6 mg PO BID PRN constipation 7 03/19/24 Unknown Rx days #14 caps clindamycin HCl 300 mg capsule 300 mg PO Q6H #40 CAPSULES 06/25/25 Unknown Rx (Cleocin HCl) Allergy/AdvReac Type Severity Reaction Status Date / Time Penicillins (PCN) Allergy Swelling Verified 06/25/25 21:49 Sulfa (Sulfonamide Allergy Swelling Verified 06/25/25 21:49 Antibiotics) Social History Smoking Status: Current every day smoker tobacco type: cigarettes and e-cigarettes ROS ROS ED ROS Narrative Review of systems positive for right upper jaw pain. Described as sharp and stabbing. No fevers or chills, no nausea or vomiting. No difficulty swallowing or breathing. EXAM Physical Exam Narrative Exam Narrative: Afebrile. Vital signs noted. Nontoxic-appearing. Focused examination of the mouth shows poor dentition. He is adentulous in multiple areas. It appears he has remaining teeth #4 and 5 which are carious. There is no fluctuance of the gum. No drooling or trismus. Airway is patent. No angioedema. No Abel angina. Const Vital Signs: 06/25/25 21:50 Temperature 98.5 F Temperature Source Oral Pulse Rate 82 Respiratory Rate 14 Blood Pressure 125/80 H Blood Pressure Mean 95 Pulse Ox 97 Oxygen Delivery Method Room Air MDM MDM MDM Narrative Medical decision making narrative: I reviewed the patient's prior records. I do not feel that differential diagnosis is applicable. He may have more of a periapical abscess secondary to dental caries. He has no drainable gingival abscess. In review of his prior records, he does have history of polysubstance abuse. He was here in the emergency department a few months ago back in February, approximately 3 to 4 months ago. He received a shot of Toradol and was placed on clindamycin secondary to allergies to sulfa and penicillin. At this point in time, he is agreeable to Toradol intramuscular injection and a prescription for clindamycin. He was given a dental sheet. He was given his first dose of antibiotic here in the emergency department and prescription written to take 300 mg 4 times a day for the next 10 days. I feel he can be discharged safely home with follow-up. Return instructions to the emergency department were reviewed. Disposition is discharged home in stable condition. History & Record Review Discussion w/independent historian: Patient Additional record(s) reviewed:: Prior ED visit (Received Toradol and clindamycin) Discharge Plan Triage Chief Complaint: Dental ED Provider: Jason Funez Dx/Rx/DC Orders Clinical Impression: Pain due to dental caries, Pain, dental Instructions: ED Dental Pain, ED Dental Cavity Prescriptions: New clindamycin HCl [Cleocin HCl] 300 mg capsule 300 mg PO Q6H Qty: 40 0RF No Action senna 8.6 mg capsule 8.6 mg PO BID PRN (Reason: constipation) 7 Days Qty: 14 0RF polyethylene glycol 3350 [Miralax] 17 gram/dose powder 17 g PO DAILY 7 Days Qty: 119 0RF Primary Care Provider: Care Physician,No Primary Referrals: Care Physician,No Primary [Primary Care Provider, Medical] Activity Restrictions/Additional Instructions: Stop smoking. Follow-up with a dentist to soon as possible. Take the antibiotics as directed. Continue Tylenol or ibuprofen as needed for pain. Print Language: Ecuadorean Disposition Disposition: Home, Self Care
[2025-06-25 22:08] VITALS: BP 120/74; PULSE 80; RESP 14; TEMP 36.9; O2SAT 97
[2025-06-25 22:25] VITALS: BP 120/74; PULSE 80; RESP 14; TEMP 36.9; O2SAT 97
== END 2025-06-25 22:26 | disposition home or self-care (01) ==
LOC: ED 22:02
PROVIDERS: Emergency Provider Emergency Medicine; Visit Provider Emergency Medicine
DX: K02.9 Dental caries, unspecified (principal); F17.210 Nicotine dependence, cigarettes, uncomplicated; Z79.899 Other long term (current) drug therapy; F17.290 Nicotine dependence, other tobacco product, uncomplicated
CPT/HCPCS: 96372; 99282

== ENCOUNTER 2025-07-11 02:27 | Emergency (ER) | payer MEDICAID, SELFPAY ==
[2025-07-11 02:27] VITALS: BP 128/88; PULSE 89; RESP 16; TEMP 36.8; O2SAT 99; BMI 20.7
--- NOTE | 2025-07-11 02:44 | EX.ED.DYSGE1 ---
HPI History of Present Illness Chief Complaint: Dental Informant: patient Narrative Narrative: Patient is a 40-year-old male with past medical history of tobacco use and polysubstance abuse. He was seen on 06-25 for dental pain and at that time placed on clindamycin. He states he took his antibiotic as directed and had improvement of his right sided pain. However today he has noticed increased left lower dental pain with swelling. He states there is no recent trauma. He denies any fevers or chills or difficulty breathing or swallowing. However he has concern that he has a repeat infection and therefore comes in for evaluation 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) Chronic dental pain Acute opioid withdrawal Home Medications ?Medication ?Instructions ?Recorded ?Last Taken ?Type clindamycin HCl 300 mg capsule 300 mg PO Q6H #40 CAPSULES 06/25/25 Unknown Rx (Cleocin HCl) doxycycline hyclate 100 mg capsule 100 mg PO BID 7 days #14 caps 07/11/25 Unknown Rx Allergy/AdvReac Type Severity Reaction Status Date / Time Penicillins (PCN) Allergy Swelling Verified 07/11/25 02:30 Sulfa (Sulfonamide Allergy Swelling Verified 07/11/25 02:30 Antibiotics) Social History Smoking Status: Current every day smoker tobacco type: cigarettes and e-cigarettes ROS ROS ED Constitutional Constitutional ED: Denies chills or fever(s) Eyes Eyes: Denies change in vision ENT ENT ED: Reports other Details: Positive dental pain ; Denies sore throat Cardiovascular Cardiovascular: Denies chest pain Respiratory/Chest Respiratory/Chest: Denies cough or dyspnea Gastrointestinal Gastrointestinal: Denies abdominal pain, diarrhea, nausea or vomiting Musculoskeletal Musculoskeletal: Denies neck pain Integumentary Denies rash Neurologic Neurologic: Denies headache(s) Allergic/Immunologic Allergic/Immunologic ED: Denies mouth swelling or tongue swelling EXAM Physical Exam Const Vital Signs: 07/11/25 02:27 07/11/25 03:20 Temperature 98.3 F 98.0 F Temperature Source Oral Pulse Rate 89 85 Respiratory Rate 16 18 Blood Pressure 128/88 H 120/58 L Blood Pressure Mean 101 78 Pulse Ox 99 97 Oxygen Delivery Method Room Air Positive well nourished and well developed General Appearance ED: well developed; Negative for pallor HEENT HEENT Narrative: No tongue or lip swelling no oral lesions no airway edema or compromise Patient has multiple dental caries; there is faint soft tissue swelling along the left lower gingiva near the molars concerning for developing dental abscess but no active drainage or discharge or abscess is noted at this time No signs of ANUG Eyes PERRL and EOMs intact bilaterally General Eye ED: Negative for scleral icterus Neck supple Neck Narrative: No brawny edema in the submental space to suggest Abel's angina Resp normal respiratory effort and clear to auscultation bilaterally Cardio regular rate and regular rhythm Extremity normal to inspection Neuro oriented x3, CN's II-XII intact bilaterally and no sensory deficits noted Sensorium / Orientation: alert Motor Exam: strength 5/5 throughout Psych mental status grossly normal Skin no rashes or lesions noted General Skin Exam: Negative for jaundice or pallor MDM MDM MDM Narrative Medical decision making narrative: Patient arrived to the ER with stable vitals. He reported nontraumatic dental pain. Physical exam shows multiple dental caries with mild soft tissue swelling of the left gingival region concerning for developing infection. However there is no fluctuance noted and therefore there is no need for incision and drainage. Physical exam does not show findings of ANUG or Abel's angina. He does not have airway edema or compromise and therefore I do not feel the need for imaging or laboratory studies. As the patient was previously on clindamycin but now has developed a potential repeat infection I will change his antibiotic to doxycycline as he has a penicillin and sulfa allergy. He was given a Toradol shot for pain and a dental block as well. Following improvement of his pain and patient having no signs of airway edema or compromise he is otherwise safe for discharge Patient was given a left inferior alveolar dental block using 1.5 mL of 0.5% Marcaine and 1.5 mL of 2% lidocaine with epinephrine. The patient achieved good anesthesia with the injection and tolerated procedure well without complication. History & Record Review Discussion w/independent historian: Patient Discharge Plan Triage Chief Complaint: Dental ED Provider: Joseph Taylor Dx/Rx/DC Orders Clinical Impression: Pain, dental, Dental caries, Polysubstance use disorder, Tobacco use Instructions: Dental Abscess, ED Dental Pain Prescriptions: New doxycycline hyclate 100 mg capsule 100 mg PO BID 7 Days Qty: 14 0RF No Action clindamycin HCl [Cleocin HCl] 300 mg capsule 300 mg PO Q6H Qty: 40 0RF Primary Care Provider: Care Physician,No Primary Referrals: Care Physician,No Primary [Primary Care Provider, Medical] Activity Restrictions/Additional Instructions: Your exam would indicate a developing infection in the left lower jaw near your broken teeth. Take the antibiotic as directed to help resolve this. Follow-up with the dentist to discuss need for potential drainage. Return to the ER should you have any further concerns Print Language: Spanish Disposition Disposition: Home, Self Care Discharge Date/Time: 07/11/25 03:21
[2025-07-11] MEDS: Lidocaine 2% /Epi 1:100 (20ml) 20 ML VIAL INFILT (02:50)
[2025-07-11 03:20] VITALS: BP 120/58; PULSE 85; RESP 18; TEMP 36.7; O2SAT 97
== END 2025-07-11 03:21 | disposition home or self-care (01) ==
PROVIDERS: Emergency Provider Emergency Medicine; Visit Provider Emergency Medicine
DX: K08.89 Other specified disorders of teeth and supporting structures (principal); K02.9 Dental caries, unspecified; F17.210 Nicotine dependence, cigarettes, uncomplicated; F19.90 Other psychoactive substance use, unspecified, uncomplicated; F17.290 Nicotine dependence, other tobacco product, uncomplicated
CPT/HCPCS: 64400; 96372; 99282

== ENCOUNTER 2025-07-11 14:17 | Emergency (ER) | payer MEDICAID, SELFPAY ==
[2025-07-11 14:17] VITALS: BP 125/101; PULSE 60; RESP 14; TEMP 37; O2SAT 98; BMI 23.9
--- NOTE | 2025-07-11 15:42 | EDS_ITS ---
HPI History of Present Illness Chief Complaint: Dental Narrative Narrative: 40-year-old male presents with left lower jaw pain from dental carry that he has had for the last 1 to 2 weeks. He is a smoker. Of note, he was seen in the emergency department earlier today and had been given a shot of Toradol and a dental block. His dental block wore off so he presents to the emergency department again with pain that he has been having previously. He states that he tried to call the dentist but does not have an appointment for another 9 days. Additionally, he states that he was changed from clindamycin to doxycycline that he picked up from the pharmacy already. He states he would like another dental block and/or Toradol intramuscular injection. 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) Chronic dental pain Acute opioid withdrawal Home Medications ?Medication ?Instructions ?Recorded ?Last Taken ?Type clindamycin HCl 300 mg capsule 300 mg PO Q6H #40 CAPSU LES 06/25/25 Unknown Rx (Cleocin HCl) doxycycline hyclate 100 mg capsule 100 mg PO BID 7 day s #14 caps 07/11/25 Unknown Rx ibuprofen 600 mg tablet 600 mg PO Q8H PRN PRN pain # 20 07/11/25 Unknown Rx TABLETS Allergy/AdvReac Type Severity Reaction Status Date / Time Penicillins (PCN) Allergy Swelling Verified 07/11/25 14:18 Sulfa (Sulfonamide Allergy Swelling Verified 07/11/25 14:18 Antibiotics) Social History Smoking Status: Current every day smoker tobacco type: cigarettes and e- cigarettes ROS ROS ED ROS Narrative Review of systems positive for left lower jaw pain with dental caries. No fevers or chills, no nausea or vomiting, no difficulty swallowing. EXAM Physical Exam Narrative Exam Narrative: Afebrile. Vital signs noted. Nontoxic-appearing. Cardiovascular semination regular rate and rhythm. Lungs clear to auscultation bilaterally. HEENT examination shows impacted carious tooth in the left lower jaw. No drooling or trismus. Airway patent. Neck soft and supple without meningismus. No Abel angina or crepitance. Const Vital Signs: 07/11/25 14:17 Temperature 98.6 F Temperature Source Oral Pulse Rate 60 Respiratory Rate 14 Blood Pressure 125/101 H Blood Pressure Mean 109 Pulse Ox 98 Oxygen Delivery Method Room Air MDM MDM MDM Narrative Medical decision making narrative: I reviewed the patient's prior records. He will feel differential diagnosis applicable as he has already seen this morning, few hours ago. I reviewed his medication list and he has already received the maximum dose of Toradol, 60 mg intramuscularly. I do not feel that repeat dental block is indicated as he is not going immediately to the dentist. He was told that he cannot continue to return to the emergency department for dental blocks. He was given ibuprofen 600 mg here in the emergency department and prescription written for 600 mg #20 to take every 8 hours as he states he was not prescribed any analgesics. He was given another dental sheet for referral. I do not feel that narcotic pain medication is indicated as he has history of polysubstance abuse and opiate withdrawal as well as in the ED care plan. Disposition is discharged home in stable condition. History & Record Review Discussion w/independent historian: Patient Additional record(s) reviewed:: Prior ED visit Discharge Plan Triage Chief Complaint: Dental ED Provider: Jason Funez Dx/Rx/DC Orders Clinical Impression: Dental caries, Pain, dental, Tobacco use Instructions: ED Dental Pain Prescriptions: New ibuprofen 600 mg tablet 600 mg PO Q8H PRN PRN (Reason: pain) Qty: 20 0RF No Action doxycycline hyclate 100 mg capsule 100 mg PO BID 7 Days Qty: 14 0RF clindamycin HCl [Cleocin HCl] 300 mg capsule 300 mg PO Q6H Qty: 40 0RF Primary Care Provider: Care Physician,No Primary Referrals: Care Physician,No Primary [Primary Care Provider, Medical] Activity Restrictions/Additional Instructions: Follow-up with a dentist to soon as possible. Stop smoking. Take your doxycycline as previously directed. Take ibuprofen as directed for pain. Print Language: Slovenian Disposition Disposition: Home, Self Care
== END 2025-07-11 15:51 | disposition home or self-care (01) ==
LOC: ED 15:43
PROVIDERS: Emergency Provider Emergency Medicine; Visit Provider Emergency Medicine
DX: K02.9 Dental caries, unspecified (principal); F17.210 Nicotine dependence, cigarettes, uncomplicated; K08.89 Other specified disorders of teeth and supporting structures; F17.290 Nicotine dependence, other tobacco product, uncomplicated; Z87.898 Personal history of other specified conditions
CPT/HCPCS: 99282